=== PATIENT | female | born 1950 | race Caucasian/White ===

== ENCOUNTER 2022-08-16 10:28 | Day surgery (SDC) | payer MEDICARE, SELFPAY ==
[2022-08-16 11:22] VITALS: BP 172/76; PULSE 68; RESP 16; TEMP 36.8; O2SAT 98
[2022-08-16 12:02] VITALS: RESP 20
[2022-08-16 12:04] VITALS: BP 177/76; PULSE 77; O2SAT 96
[2022-08-16] MEDS: ONABOTULINUMTOXINA 200 UNIT VIAL INJ (12:09)
[2022-08-16] MEDS: 0.9 % SODIUM CHLORIDE 10 ML SYRINGE - SALINE FLUSH 4 ML INJ (12:10)
[2022-08-16] MEDS: BUPIVACAINE HCL 0.25% PF 25 MG/10 ML VIAL INJ (12:11)
[2022-08-16 12:12] VITALS: BP 157/69; PULSE 74; O2SAT 97
--- NOTE | 2022-08-18 16:22 | CONS_ITS ---
PROCEDURE DATE: ??08/16/2022 PROCEDURE:? Botulinum toxin infiltration of the right erector spinae muscle at the T11 and T12 levels under fluoroscopic guidance. PREOPERATIVE DIAGNOSIS:? Pain secondary to thoracolumbar kyphoscoliosis complicated by myofascial dysfunction ? Diagnosis code G24.9 ? involving the erector spinae muscle. POSTOPERATIVE DIAGNOSIS:? Pain secondary to thoracolumbar kyphoscoliosis complicated by myofascial dysfunction ? Diagnosis code G24.9 ? involving the erector spinae muscle. SOLUTION USED FOR INJECTION:? Botulinum toxin type A, 200 units in 5 mL and 2.5 mL used for the injection at each site. IMMEDIATE COMPLICATIONS:? None. PROCEDURE:? After informed consent was obtained from the patient, she was brought to the OR, placed in the prone position.? The skin overlying the area was prepped with the normal sterile fashion.? A 25 gauge spinal needle was inserted over the pedicle at T11 on the right side.? Needle tip advanced until it was encountered.? Needle tip was withdrawn slightly and injection of 100 units of botulinum toxin in 2.5 mL was injected at this area.? This was repeated in a similar fashion at the T12 level.? Post procedure, needle was removed.? Tolerated the procedure well without complications.? She reports a dramatic reduction of pain symptoms post procedurally. EMMANUEL
== END 2022-08-16 12:21 | disposition home or self-care (01) ==
LOC: SURGOUT 10:29
PROVIDERS: PCP Internal Medicine; Visit Provider Anesthesiology Pain Medicine
DX: G24.9 Dystonia, unspecified (principal); M41.85 Other forms of scoliosis, thoracolumbar region
CPT/HCPCS: 64646; 77002; J0585

== ENCOUNTER 2022-11-02 10:25 | Outpatient (OUT) | payer MEDICARE, SELFPAY ==
--- NOTE | 2022-11-02 10:38 | PM.CN ---
Consult Note: HPI Data of Consult Patient: known to practice within the last 3 years Requesting Physician: MARTINEZ GOTTLIEB NP Primary Care Provider: Kar Mota DO Consult Narrative Reason for consult: f/u Narrative: Courtney dougherty pleasant 71 year old female presents for evaluation of chronic low back pain, today 0/10. Patient feels current medication regimen is beneficial, most days pain mild to none with proper posture and rest. Patient not currently taking prn tylenol as she previously was. cc:: CC: MARTINEZ GOTTLIEB NP Review of Systems ROS Status of ROS 10 or more systems reviewed and unremarkable except as noted in history and below PFSH PFS Medical History Surgical History Meds Home Medications and Allergies Home Medications Medication Instructions Recorded Confirmed Type acetaminophen 325 mg tablet (Aphen) 325 mg PO Q6H PRN pain 08/09/22 08/16/22 History agzspjz-T7-wyu-O1-N20-epnijjtoqoij tab PO .QD 08/09/22 History 500 mg-200 unit-50 mg-1.2 mg tablet nabumetone 750 mg tablet 750 mg PO BID 08/09/22 08/16/22 History vitamins A,C,V-vryf-gdkzbd 2,148 2 tab PO BID 08/09/22 08/16/22 History mcg-113 mg-45 mg-17.4 mg tablet (Eye Multivitamin) zoledronic acid 5 mg/100 mL in ea IV .YEARLY 08/09/22 History mannitol 5 %-water intravenous piggybck (Reclast) baclofen 08/16/22 History gabapentin 08/16/22 History Allergies Allergy/AdvReac Type Severity Reaction Status Date / Time amoxicillin Allergy Verified 08/09/22 14:51 nitrofurantoin Allergy Verified 08/09/22 14:51 [From Macrobid] Sulfa (Sulfonamide Allergy Verified 08/09/22 14:51 Antibiotics) Exam Constitutional Documenting provider has reviewed patient's vital signs: yes Common normals: no apparent distress, oriented x3, healthy appearing, alert and well nourished General appearance: cooperative HENMT Common normals: normocephalic, hearing grossly normal bilaterally and moist oral mucous membranes Head and scalp: normocephalic Eye Common normals: PERRL Pupil: PERRL Neck & C-Spine Common normals: full ROM General: normal visual inspection Chest Common normals: inspection of chest normal Respiratory Common normals: normal respiratory effort, no retractions and no use of accessory muscles Back & Pelvis Common normals: no thoracic nor lumbar tenderness Thoracic spine/upper back: thoracic ROM normal Lumbar spine/lower back: lumbar ROM normal Other: scoliosis noted on physical exam Extremity Common normals: normal to inspection, full ROM, normal capillary refill and no joint enlargement Neuro Common normals: oriented x3, CN's II-XII intact bilaterally, moves all extremities, no focal motor deficits, no sensory deficits noted and deep tendon reflexes 2+ bilaterally Sensorium/orientation: alert Gait (neuro): assistive device used cane Motor exam: strength 5/5 throughout and no movement abnormalities noted Psych Common normals: mental status grossly normal, thought process normal, cooperative, affect normal, speech normal and activity/motor behavior normal Speech: normal speech Thought process: normal thought process Results Additional Findings Additional findings: I have checked an [place] report on this patient today and there are no aberrancies noted in the prescribing history.?? A drug screen was completed and reviewed within the last year, and if there has not been a drug screen completed we ordered one today to monitor higher risk, state monitored pain medication use. As part of providing excellent, safe, comprehensive care, the following was completed at our patient's visit: 1. A medication reconciliation and review to ensure accurate knowledge of current/active medications, including asking our patients to inform us about any tyvp-amx-qbghgzr medications or herbal remedies/nutritional supplements/alternative remedies. 2. A review to specifically ensure our patients have had annual screening for: elevated body mass index (BMI), tobacco use, screening for depression, and screening for unhealthy alcohol use. When screening is concerning, patients are provided with education and the specific recommendation to discuss the concerning health issue and treatment options with their primary care provider. Assessment and Plan Assessment and Plan (1) Lumbar spondylosis: (2) Scoliosis: (3) Muscle spasm: Plan continue current medication regimen, if needed can take PRN acetaminophen not to exceed 3000mg start PT for core strengthening, balance, and strength f/u 3 months, if patient notices pain increasing f/u sooner
== END 2022-11-02 10:26 | disposition home or self-care (01) ==
PROVIDERS: PCP Internal Medicine; Visit Provider Nurse Practitioner
DX: M47.816 Spondylosis without myelopathy or radiculopathy, lumbar region (principal); M62.838 Other muscle spasm; M41.9 Scoliosis, unspecified
CPT/HCPCS: G0463

== ENCOUNTER 2022-11-28 09:48 | Outpatient (OUT) | payer MEDICARE, SELFPAY ==
[2022-11-28 10:22] LABS: Basophils Percent Auto 0.9 % (0.2-2.0); Eosinophils Absolute Auto 0.1 10^3/uL (0.0-0.7); Eosinophils Percent Auto 1.8 % (0.9-7.0); Hematocrit 33.3 % (36.0-48.0); Immature Granulocytes Abs Auto 0.01 10^3/uL (0.00-0.03); Immature Granulocytes Pct Auto 0.2 % (0.0-0.5); Lymphocytes Absolute Auto 1.5 10^3/uL (1.2-3.8); Lymphocytes Percent Auto 33.3 % (20.5-60.0); Mean Corpuscular Hemoglobin 31.2 pg (26.7-34.0); Mean Corpuscular Volume 94.3 fL (81.0-99.0); Mean Platelet Volume 8.6 fL (9.5-13.5); Monocytes Absolute Auto 0.5 10^3/uL (0.3-0.8); Neutrophils Absolute Auto 2.3 10^3/uL (1.4-6.5); Neutrophils Percent Auto 52.8 % (43.0-75.0); Platelet Count 229 10^3/uL (150-450); Red Blood Count 3.53 10^6/uL (4.20-5.40); Red Cell Distribution Width 13.6 % (11.0-15.0); White Blood Count 4.4 10^3/uL (4.0-11.0)
[2022-11-28 11:14] LABS: Anion Gap 10.4; BUN Creatinine Ratio 17.4; Calcium 9.2 mg/dL (8.5-10.1); Carbon Dioxide 30.7 mmol/L (21.0-32.0); Chloride 103 mmol/L (98-107); Estimated GFR (African America 59 (>=60); Estimated GFR (Non-African Ame 49 (>=60); Glucose 84 mg/dL (74-106); Potassium 4.1 mmol/L (3.5-5.1); Sodium 140 mmol/L (136-145)
== END 2022-11-28 09:49 | disposition home or self-care (01) ==
PROVIDERS: PCP Internal Medicine; Visit Provider Internal Medicine
DX: Z79.899 Other long term (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 (principal); Z51.81 Encounter for therapeutic drug level monitoring; M85.851 Other specified disorders of bone density and structure, right thigh; M85.852 Other specified disorders of bone density and structure, left thigh; E55.9 Vitamin D deficiency, unspecified
CPT/HCPCS: 36415; 80048; 82306; 85025

== ENCOUNTER 2022-12-05 09:54 | Outpatient (RCR) | payer MEDICARE, SELFPAY | END 2022-12-30 15:06 | disposition home or self-care (01) | LOC: PT 09:54 | PROVIDERS: PCP Internal Medicine; Visit Provider Nurse Practitioner | DX: M47.816 Spondylosis without myelopathy or radiculopathy, lumbar region (principal); M41.9 Scoliosis, unspecified | CPT/HCPCS: 97010; 97110; 97161 ==

== ENCOUNTER 2022-12-19 07:33 | Outpatient (RCR) | payer MEDICARE, SELFPAY ==
[2022-12-19] MEDS: ZOLEDRONIC ACID/MANNITOL-WATER 5 MG/100 ML BOTTLE 400 MG IV (11:08)
[2022-12-19 11:32] VITALS: BP 164/82; PULSE 82; RESP 18; TEMP 36.2; O2SAT 97
--- NOTE | 2022-12-19 11:34 | PC.NURSE ---
1055: Pt. to [facility] amb. per self. Seated in recliner. VSS. IV started to right ac on first attempt without difficulty. Pt. tolerated without c/o. Denies questions regarding meds. Instructed to increase fluid intake today and tylenol for aches or discomfort. Pt. relays understanding. 1108: IV Reclast initiated as ordered. 1126: Reclast infusion complete without s&S of adverse reaction. IV d/c'd, pressure to site. Pt. tolerated without c/o. D/c'd amb. to home.
== END 2022-12-27 23:59 | disposition home or self-care (01) ==
LOC: INF 07:33
PROVIDERS: PCP Internal Medicine; Visit Provider Internal Medicine
DX: M81.0 Age-related osteoporosis without current pathological fracture (principal)
CPT/HCPCS: 96365; J3489

== ENCOUNTER 2023-02-09 13:02 | Outpatient (OUT) | payer MEDICARE, SELFPAY ==
--- NOTE | 2023-02-09 13:35 | P.CN_ITS ---
Consult Note: HPI Data of Consult Patient: known to practice within the last 3 years Requesting Physician: Hiwot Irving NP Primary Care Provider: Kar Mota DO Consult Narrative Reason for consult: f/u Narrative: Courtney dougherty pleasant 71 year old female presents for evaluation of chronic low back pain, today 0/10. Patient feels current medication regimen is beneficial, most days pain mild to none with proper posture and rest. Patient not currently taking prn tylenol as she previously was. cc:: CC: Hiwot Irving NP Review of Systems ROS Status of ROS 10 or more systems reviewed and unremark able except as noted in history and below Musculoskeletal Reports: back pain PFSH PFSH Medical History Rheumatoid arthritis ?M06.9 - Rheumatoid arthritis, unspecified (ICD-10) Low back pain ?M54.50 - Low back pain, unspecified (ICD-10) Family history of psychiatric condition ?Z81.8 - Family history of other mental and behavioral disorders (ICD-10) Former smoker ?Z87.891 - Personal history of nicotine dependence (ICD-10) Surgical History History of dilatation and curettage ?Z98.890 - Other specified postprocedural states (ICD-10) Meds Home Medications and Allergies Home Medications Medication Instructions Recorded Confirmed Type acetaminophen 325 mg tablet (Aphen) 325 mg PO Q6H PRN pain 08/09/22 08/16/22 History exauoki-T0-rxv-B7-T97-rjrsxqojctol tab PO .QD 08/09/22 History 500 mg-200 unit-50 mg-1.2 mg tablet nabumetone 750 mg tablet 750 mg PO BID 08/09/22 08/16/22 History vitamins A,C,S-tqse-vxgxqx 2,148 2 tab PO BID 08/09/22 08/16/22 History mcg-113 mg-45 mg-17.4 mg tablet (Eye Multivitamin) zoledronic acid 5 mg/100 mL in ea IV .YEARLY 08/09/22 History mannitol 5 %-water intravenous piggybck (Reclast) baclofen 08/16/22 History gabapentin 08/16/22 History baclofen 10 mg tablet 10 mg PO DAILY #30 tabs 11/02/22 Rx Allergies Allergy/AdvReac Type Severity Reaction Status Date / Time amoxicillin Allergy Verified 08/09/22 14:51 nitrofurantoin Allergy Verified 08/09/22 14:51 [From Macrobid] Sulfa (Sulfonamide Allergy Verified 08/09/22 14:51 Antibiotics) Exam Constitutional Documenting provider has reviewed patient's vital signs: yes Common normals: no apparent distress, oriented x3, healthy appearing, alert and well nourished General appearance: cooperative HENMT Common normals: normocephalic, hearing grossly normal bilaterally and moist oral mucous membranes Head and scalp: normocephalic Eye Common normals: PERRL Pupil: PERRL Neck & C-Spine Common normals: full ROM General: normal visual inspection Chest Common normals: inspection of chest normal Respiratory Common normals: normal respiratory effort, no retractions and no use of accessory muscles Back & Pelvis Common normals: no thoracic nor lumbar tenderness Thoracic spine/upper back: thoracic ROM normal Lumbar spine/lower back: lumbar ROM normal Other: scoliosis noted on physical exam Extremity Common normals: normal to inspection, full ROM, normal capillary refill and no joint enlargement Neuro Common normals: oriented x3, CN's II-XII intact bilaterally, moves all extremities, no focal motor deficits, no sensory deficits noted and deep tendon reflexes 2+ bilaterally Sensorium/orientation: alert Gait (neuro): assistive device used cane Motor exam: strength 5/5 throughout and no movement abnormalities noted Psych Common normals: mental status grossly normal, thought process normal, co operative, affect normal, speech normal and activity/motor behavior normal Speech: normal speech Thought process: normal thought process Assessment and Plan Assessment and Plan (1) Myofascial pain: (2) Scoliosis: (3) Lumbar spondylosis: Plan continue HEP continue current medications, tolerating well without side effect f/u 6 months, sooner if needed
== END 2023-02-09 13:03 | disposition home or self-care (01) ==
LOC: PM 13:03
PROVIDERS: PCP Internal Medicine; Visit Provider Nurse Practitioner
DX: M79.18 Myalgia, other site (principal); M41.9 Scoliosis, unspecified; M47.816 Spondylosis without myelopathy or radiculopathy, lumbar region
CPT/HCPCS: G0463

== ENCOUNTER 2023-05-24 13:21 | Outpatient (OUT) | payer MEDICARE, SELFPAY ==
--- NOTE | 2023-05-24 13:29 | P.CN_ITS ---
Consult Note: HPI Data of Consult Patient: known to practice within the last 3 years Requesting Physician: Hiwot Irving NP Primary Care Provider: aKr Mota, DO Consult Narrative Reason for consult: f/u Narrative: Courtney dougherty pleasant 71 year old female presents for evaluation of chronic low back pain, today 04/08, increasing to 08/06. Patient feels current medication regimen is beneficial, most days pain mild to moderate, improved with proper posture and rest but has noticed increase in muscle spasms. Patient reports significant improvement from Botulinum toxin infiltration of the right erector spinae muscle at the T11 and T12 levels under fluoroscopic guidance greater than 6 months and would like to repeat. cc:: CC: Hiwot Irving NP Review of Systems ROS Status of ROS 10 or more systems reviewed and unremark able except as noted in history and below Musculoskeletal Reports: back pain PFSH PFSH Medical History Rheumatoid arthritis ?M06.9 - Rheumatoid arthritis, unspecified (ICD-10) Low back pain ?M54.50 - Low back pain, unspecified (ICD-10) Family history of psychiatric condition ?Z81.8 - Family history of other mental and behavioral disorders (ICD-10) Former smoker ?Z87.891 - Personal history of nicotine dependence (ICD-10) Surgical History History of dilatation and curettage ?Z98.890 - Other specified postprocedural states (ICD-10) Meds Home Medications and Allergies Home Medications ?Medication ?Instructions ?Recorded ?Confirmed ?Type acetaminophen 325 mg tablet (Aphen) 325 mg PO Q6H PRN pain 08/09/22 08/16/22 History fsgjoyd-I3-unj-T4-X32-komvyoubfgce tab PO .QD 08/09/22 History 500 mg-200 unit-50 mg-1.2 mg tablet nabumetone 750 mg tablet 750 mg PO BID 08/09/22 08/16/22 History vitamins A,C,B-ofzl-zvipih 2,148 2 tab PO BID 08/09/22 08/16/22 History mcg-113 mg-45 mg-17.4 mg tablet (Eye Multivitamin) zoledronic acid 5 mg/100 mL in ea IV .YEARLY 08/09/22 History mannitol 5 %-water intravenous piggybck (Reclast) baclofen 08/16/22 History gabapentin 08/16/22 History baclofen 10 mg tablet 10 mg PO DAILY #30 tabs 11/02/22 Rx Allergies Allergy/AdvReac Type Severity Reaction Status Date / Time amoxicillin Allergy Verified 08/09/22 14:51 nitrofurantoin Allergy Verified 08/09/22 14:51 [From Macrobid] Sulfa (Sulfonamide Allergy Verified 08/09/22 14:51 Antibiotics) Exam Constitutional Documenting provider has reviewed patient's vital signs: yes Common normals: no apparent distress, oriented x3, healthy appearing, alert and well nourished General appearance: cooperative HENMT Common normals: normocephalic, hearing grossly normal bilaterally and moist oral mucous membranes Head and scalp: normocephalic Eye Common normals: PERRL Pupil: PERRL Neck & C-Spine Common normals: full ROM General: normal visual inspection Chest Common normals: inspection of chest normal Respiratory Common normals: normal respiratory effort, no retractions and no use of accessory muscles Back & Pelvis Common normals: no thoracic nor lumbar tenderness Thoracic spine/upper back: thoracic ROM normal Lumbar spine/lower back: lumbar ROM normal, lumbar spinal tenderness, paraspinal muscle tenderness, paraspinal muscle spasm, lumbar scoliosis present and straight leg raise negative bilaterally Other: scoliosis noted on physical exam Extremity Common normals: normal to inspection, full ROM, normal capillary refill and no joint enlargement Neuro Common normals: oriented x3, CN's II-XII intact bilaterally, moves all extremities, no focal motor deficits, no sensory deficits noted and deep tendon reflexes 2+ bilaterally Sensorium/orientation: alert Gait (neuro): assistive device used cane Motor exam: strength 5/5 throughout and no movement abnormalities noted Psych Common normals: mental status grossly normal, thought process normal, cooperative, affect normal, speech normal and activity/motor behavior normal Speech: normal speech Thought process: normal thought process Results Additional Findings Additional findings: If on a controlled substance or opioids, I have checked an [place] report on this patient and there are no aberrancies noted in the prescribing history.??If on a controlled substance or opioid a drug screen was completed and reviewed within the last year, and if there has not been a drug screen completed we ordered one today to monitor higher risk, state monitored pain medication use. As part of providing excellent, safe, comprehensive care, the following was completed at our patient's visit: 1. A medication reconciliation and review to ensure accurate knowledge of current/active medications, including asking our patients to inform us about any vyiv-zdq-lrhmfha medications or herbal remedies/nutritional supplements/alternative remedies. 2. A review to specifically ensure our patients have had annual screening for screening for depression, screening for tobacco use, and screening for unhealthy alcohol use. For concerning screenings had a discussion with the patient, provided patient education, and recommended follow-up with primary care provider when appropriate. If patient noted with a risk of falling, they received education on strength, gait, and balance training to prevent future risk of falling. Assessment and Plan Assessment and Plan (1) Dystonia, unspecified: (2) Lumbar spondylosis: (3) Myofascial pain: (4) Scoliosis: Plan repeat Botulinum toxin infiltration of the right erector spinae muscle at the T11 and T12 levels under fluoroscopic guidance with Dr Escobar, patient reports previously benefitted greater than 50% for >6 months and would like to repeat. Consider right L3-4 L4-5 facet medial branch blocks working towards RFA continue current medication regimen as tolerated f/u after injection
== END 2023-05-24 13:22 | disposition home or self-care (01) ==
LOC: PM 13:21
PROVIDERS: PCP Internal Medicine; Visit Provider Nurse Practitioner
DX: G24.9 Dystonia, unspecified (principal); M47.816 Spondylosis without myelopathy or radiculopathy, lumbar region; M79.18 Myalgia, other site; M41.9 Scoliosis, unspecified
CPT/HCPCS: G0463

== ENCOUNTER 2023-05-30 08:04 | Day surgery (SDC) | payer MEDICARE, SELFPAY ==
--- OUTSIDE RECORDS SUMMARY | 2023-05-30 08:07 | XMS_ITS | CCD ---
Author Organization [facility] Care Team Providers Care Resident Manager Name Role Phone Unavailable Primary Care Provider Unavailabl e BONUS, ANCELMO Attending Unavailable BONUS, ANCELMO Referring Unavailable BONUS, ANCELMO Referring Unavailable WELLINGTON HONG Attending Unavailable Unavailable Primary Care Provider Unavailalcides MARCIAL, DR MANJULA Hart Primary Care Unavailable HARRIS ., DR DUC Smith Attending Unavailable HARRIS ., DR DUC Smith Admitting Unavailable HARRIS ., DR DUC Smith Consulting Unavailable MARCIAL, DR MANJULA Hart Primary Care Unavailable HARRIS ., DR DUC Smith Consulting Unavailable HARRIS ., DR DUC Smith Attending Unavailable HARRIS ., DR DUC Smith Admitting Unavailable MARCIAL, DR MANJULA Hart Primary Care Unavailable HARRIS ., DR DUC Smith Consulting Unavailable HARRIS ., DR DUC Smith Attending Unavailable HARRIS ., DR DUC Smith Admitting Unavailable MARCIAL, DR MANJULA Hart Primary Care Unavailable CHERY ., MARTINEZ Attending Unavailable CHERY ., MARTINEZ Admitting Unavailable MARCIAL, DR MANJULA Hart Primary Care Unavailable HARRIS ., DR DUC Smith Consulting Unavailable HARRIS ., DR DUC Smith Attending Unavailable HARRIS ., DR DUC Smith Admitting Unavailable HARRIS ., DR DUC Smith Consulting Unavailable HARRIS ., DR DUC Smith Attending Unavailable HARRIS ., DR DUC Smith Admitting Unavailable MARCIAL, DR MANJULA Hart Primary Care Unavailable NAKUL, DR BURNETT Admitting Unavailable BALL, DR BURNETT Primary Care Unavailable BALL, DR BURNETT Consulting Unavailable BALL, DR BURNETT Attending Unavailable BALL, DR BURNETT Primary Care Unavailable ILDEFONSO, DR JEFF Choi Consulting Unavailable MISC, DR GALLEGOS Admitting Unavailable MISC, DR GALLEGOS Attending Unavailable MISC, DR GALLEGOS Consulting Unavailable MATTEBSTEVE, DR MARTA Tyler Consulting Unavailable BALL, DR BURNETT Admitting Unavailable BALL, DR BURNETT Primary Care Unavailable BALL, DR BURNETT Consulting Unavailable NAKUL, DR BURNETT Attending Unavailable MARCIAL, DR MANJULA Hart Primary Care Unavailable BALL, DR BURNETT Consulting Unavailable BALL, DR BURNETT Attending Unavailable BALL, DR BURNETT Admitting Unavailable WEST, DR JEFF Choi Consulting Unavailable JADA, DR MARTA Tyler Consulting Unavailable HARRIS ., DR DUC Smith Attending Unavailable KIMBERLY ., DR DUC Smith Admitting Unavailable AGGIE, DR MANJULA Hart Primary Care Unavailable DR MANJULA MARCIAL Consulting Unavailable KIMBERLY ., DR DUC Smith Consulting Unavailable Kar Mota Unavailable Allergies Allergy Classification Reported Allergen(s) Allergy Type Date of Onset Reaction(s) Facility (4 sources) Amoxicillin; Translations: [AMOXICILLIN] Drug Allergy 2 Anaphylaxis [facility] (14 sources) NITROFURANTOIN, MACROCRYSTALS / Nitrofurantoin, Monohydrate; Translations: [NITROFURANTOIN MONOHYD/M-CRYST] Drug Allergy 2 Anaphylaxis [facility] (14 sources) Sulfonamides (Antibiotic); Translations: [SULFA (SULFONAMIDE ANTIBIOTICS)] Drug Allergy 2 Anaphylaxis [facility] (1 source) Amoxicillin Drug Allergy 1 [facility] (2 sources) Nitrofurantoin Drug Allergy 3 [facility] (2 sources) Sulfonamides (Antibiotic) Drug allergy (disorder) 3 [facility] (10 sources) Amoxicillin-Pot Clavulanate Drug allergy 6 Unknown [employer] Other Medications Current Medications Medication Drug Class(es) Dates Sig (Normalized) Sig (Original) azithromycin 250 mg oral tablet (2 sources) Macrolide Antimicrobial Start: 03-27-2023 Azithromycin 250 MG as directed Orally daily for 5 days Feb, Active baclofen 10 mg oral tablet (13 sources) gamma-Aminobutyric Acid-ergic Agonist Start: 08-21-2018 Baclofen 10 MG BACLOFEN 10 MG ORAL TABLET( ) Active -Hx Entry Oral BACLOFEN 10 MG ORAL TABLET, Jul, Active Comment on above: Take 10 mg by mouth daily at bedtime. docusate sodium 50 mg / sennosides, halfway 8.6 mg oral tablet (3 sources) Start: 12-26-2022 take 8.6-50 mg by mouth once daily in the evening as needed Senokot S 8.6-50 MG 1 tablet as needed Orally q evening for 30 days Nov, Active gabapentin 100 mg oral capsule (20 sources) Anti-epileptic Agent Start: 01-14-2022 take 1 capsule by mouth twice daily as needed Gabapentin 100mg gabapentin 100mg, 2 (two) Capsule Capsule two times daily # 120, 01/14/2022, Ref. x5. Active oral two times daily for 0 Replaces previous prescription w/ intructions for tid *Pick strength-form from [employer] for eRX* Dec, Not-Taking/PRN Start: 09-27-2021 take 2 capsules by m outh every twelve hours Gabapentin 100 MG 2 capsules Orally bid for 30 days Aug, Active Comment on above: Take 200 mg by mouth twice daily. Completed/Discontinued Medications Medication Drug Class(es) Dates Sig (Normalized) Sig (Original) nabumetone 750 mg oral tablet (13 sources) Nonsteroidal Anti-inflammatory Drug Start: 10-13-2021 nabumetone (RELAFEN) 750 mg tablet omeprazole 40 mg delayed release oral capsule (3 sources) Proton Pump Inhibitor Start: 08-27-2021 take 1 capsule by mouth twice daily omeprazole (PRILOSEC) 40 mg capsule TAKE 1 CAPSULE BY MOUTH 2 TIMES DAILY FOR 12 WEEKS 0 08/27/2021 Active Comment on above: TAKE 1 CAPSULE BY MO UT 2 TIMES DAILY FOR 12 WEEKS vit A/vit C/vit E/zinc/copper (PRESERVISION AREDS ORAL) (3 sources) vit A/vit C/vit E/zinc/copper (PRESERVISION AREDS ORAL) Take by mouth. 0 Active Comment on above: Take by mouth. 100 ml zoledronic acid 0.05 mg/ml injection (3 sources) Bisphosphonate zoledronic acid (RECLAST) 5 mg/100 mL pgbk PREMIX piggyback Inject 5 mg intravenously every year. 0 Active Comment on above: Inject 5 mg intraven ously every year. Problems Active Problems Problem Classification Problem Date Documented Da te Episodic/Chronic Abdominal hernia (7 sources) Diaphragmatic hernia; Translations: [Diaphragmatic hernia without obstruction or gangrene] Episodic Abdominal pain (14 sources) Left lower quadrant pain; Translations: [Left lower quadrant pain] Onset: 10-05-2016 Episodic Acute bronchitis (1 source) Acute bronchitis due to other specified organisms Episodic Anxiety disorders (7 sources) Generalized anxiety disorder; Translations: [Generalized anxiety disorder] Chronic Conditions associated with dizziness or vertigo (14 sources) Benign paroxysmal positional vertigo; Translations: [Benign paroxysmal vertigo, unspecified ear] Onset: 08-14-2013 Episodic Deficiency and other anemia (7 sources) Anemia; Translations: [Anemia, unspecified] Episodic Gastroduodenal ulcer (except hemorrhage) (7 sources) Gastric ulcer; Translations: [Gastric ulcer, unspecified as acute or chronic, without hemorrhage or perforation] Onset: 10-06-2021 Chronic Headache; including migraine (1 source) Headache; including migraine; Translations: [Headache, unspecified] Onset: 04-03-2015 Immunizations and screening for infectious disease (7 sources) Vaccination given; Translations: [Encounter for immunization] Episodic Malaise and fatigue (8 sources) Other fatigue; Translations: [Fatigue] Onset: 03-10-2022 Episodic Menopausal disorders (7 sources) Menopause present; Translations: [Menopausal and female climacteric states] Chronic Nonmalignant breast conditions (7 sources) Fibrocystic disease of breast; Translations: [Diffuse cystic mastopathy of unspecified breast] Chronic Nutritional deficiencies (15 sources) Vitamin D deficiency, unspecified; Translations: [Vitamin D deficiency] Onset: 10-28-2021 Chronic Osteoarthritis (7 sources) Osteoarthritis; Translations: [Polyosteoarthritis, unspecified] Chronic Osteoporosis (17 sources) Age-related osteoporosis without current pathological fracture; Translations: [Primary osteoporosis] Onset: 11-11-2021 Chronic Other acquired deformities (1 source) Scoliosis deformity of spine; Translations: [Scoliosis, unspecified] Chronic Other acquired deformities (6 sources) Scoliosis, unspecified; Translations: [Scoliosis of thoracolumbar spine, unspecified scoliosis type] Onset: 10-15-2021 Chronic Other acquired deformities (1 source) Other forms of scoliosis, lumbar region; Translations: [OTHER FORMS SCOLIOSIS LUMBAR REGION] Onset: 12-03-2021 Chronic Other acquired deformities (20 sources) Acquired scoliosis; Translations: [Other secondary scoliosis, thoracic region] Chronic Other acquired deformities (3 sources) Other secondary scoliosis, lumbar region Chronic Other acquired deformities (3 sources) Other secondary scoliosis, thoracic region Chronic Other acquired deformities (3 sources) Acquired kyphoscoliosis; Translations: [Scoliosis, unspecified] Chronic Other acquired deformities (2 sources) Thoracogenic scoliosis, thoracolumbar region; Translations: [Thoracogenic scoliosis of thoracolumbar region] Chronic Other aftercare (2 sources) 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; Translations: [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 DRUG THERAPY] Onset: 10-29-2021 Episodic Other aftercare (6 sources) Long-term current use of drug therapy; Translations: [Other longterm (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] Episodic Other bone disease and musculoskeletal deformities (7 sources) Bone density finding; Translations: [Other specified disorders of bone density and structure, unspecified site] Episodic Other connective tissue disease (4 sources) Muscle wasting and atrophy, not elsewhere classified, unspecified site; Translations: [MUSCLE WASTING ATROPHY NEC UNS SITE] Onset: 05-02-2022 Episodic Other gastrointestinal disorders (9 sources) Irritable bowel syndrome characterized by constipation; Translations: [Irritable bowel syndrome with constipation] Chronic Other gastrointestinal disorders (4 sources) Irritable bowel syndrome with constipation; Translations: [Irritable bowel syndrome with constipation] Chronic Other gastrointestinal disorders (6 sources) Flatulence, eructation and gas pain; Translations: [Abdominal distension (gaseous)] Episodic Other gastrointestinal disorders (1 source) Abdominal distension (gaseous); Translations: [Abdominal distension (gaseous)] Episodic Other gastrointestinal disorders (1 source) Diarrhea, unspecified Episodic Other hereditary and degenerative nervous system conditions (1 source) Genetic torsion dystonia; 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] Onset: 01-24-2022 Chronic Other hereditary and degenerative nervous system conditions (1 source) Dystonia, unspecified; Translations: [DYSTONIA UNSPECIFIED] Onset: 12-26-2021 Chronic Other injuries and conditions due to external causes (7 sources) History of fall; Translations: [History of falling] Episodic Other nervous system disorders (3 sources) Chronic pain; Translations: [Other chronic pain] Chronic Other nervous system disorders (7 sources) Paresthesia; Translations: [Paresthesia of skin] Episodic Other nutritional; endocrine; and metabolic disorders (6 sources) Abnormal weight loss; Translations: [Abnormal weight loss] Episodic Other nutritional; endocrine; and metabolic disorders (1 source) Abnormal weight loss; Translations: [Abnormal weight loss] Episodic Other upper respiratory disease (7 sources) Vasomotor rhinitis; Translations: [Vasomotor rhinitis] Chronic Other upper respiratory infections (7 sources) Chronic sinusitis; Translations: [Chronic sinusitis, unspecified] Chronic Residual codes; unclassified (9 sources) Early satiety; Translations: [Early satiety] Episodic Residual codes; unclassified (7 sources) Postmenopausal state; Translations: [Asymptomatic menopausal state] Episodic Residual codes; unclassified (1 source) Early satiety; Translations: [Early satiety] Episodic Spondylosis; intervertebral disc disorders; other back problems (20 sources) Other cervical disc degeneration, unspecified cervical region; Translations: [Lumbosacral spondylosis without myelopathy] Onset: 01-24-2022 Chronic Spondylosis; intervertebral disc disorders; other back problems (18 sources) Sciatica; Translations: [Lumbago with sciatica, left side] Resolved: 07-07-2021 Episodic Substance-related disorders (10 sources) Tobacco user; Translations: [Nicotine dependence, cigarettes, in remission] Chronic Unclassified (3 sources) LOW BACK PAIN, UNSPECIFIED; Translations: [LOW BACK PAIN, UNSPECIFIED] Onset: 01-24-2022 Unclassified (1 source) Unspecified tinnitus; Translations: [Unspecified tinnitus] Onset: 05-01-2017 Past or Other Problems Problem Classification Problem Date Documented Date Episodic/Chronic Genitourinary symptoms and ill-defined conditions (14 sources) Finding of frequency of urination; Translations: [Frequency of micturition] Onset: 08-03-2015 Episodic Headache; including migraine (6 sources) Headache; Translations: [Headache, unspecified] Onset: 04-03-2015 Episodic Noninfectious gastroenteritis (7 sources) Non-infective enteritis and colitis; Translations: [Noninfective gastroenteritis and colitis, unspecified] Onset: 05-13-2013 Episodic Nonspecific chest pain (7 sources) Chest pain; Translations: [Chest pain, unspecified] Onset: 08-14-2013 Episodic Other bone disease and musculoskeletal deformities (1 source) Other specified disorders of bone density and structure, other site; Translations: [OTH D/O BONE DEN STRUCT OTH SITE] Onset: 03-10-2022 Episodic Other bone disease and musculoskeletal deformities (1 source) Other specified disorders of bone density and structure, left thigh; Translations: [OTH D/O BONE DEN STRUCT LT THIGH] Onset: 10-29-2021 Episodic Other bone disease and musculoskeletal deformities (1 source) Other specified disorders of bone density and structure, right thigh; Translations: [OTH D/O BONE DEN STRUCT RT THIGH] Onset: 10-29-2021 Episodic Other connective tissue disease (5 sources) Sarcopenia; Translations: [SARCOPENIA] Onset: 11-30-2021 Episodic Other connective tissue disease (1 source) Pain in left leg; Translations: [PAIN IN LEFT LEG] Onset: 12-26-2021 Episodic Other connective tissue disease (1 source) Disorder of muscle, unspecified; Translations: [DISORDER OF MUSCLE UNSPECIFIED] Onset: 12-03-2021 Episodic Other connective tissue disease (4 sources) Other muscle spasm; Translations: [OTHER MUSCLE SPASM] Onset: 11-23-2021 Episodic Other ear and sense organ disorders (6 sources) Tinnitus; Translations: [Unspecified tinnitus] Onset: 05-01-2017 Episodic Other screening for suspected conditions (not mental disorders or infectious disease) (14 sources) Patient encounter status; Translations: [Encounter for screening for osteoporosis] Onset: 10-20-2014 Episodic Other upper respiratory infections (20 sources) Acute maxillary sinusitis; Translations: [Acute recurrent maxillary sinusitis] Onset: 04-03-2015 Episodic Residual codes; unclassified (1 source) Family history of malignant neoplasm of breast; Translations: [FAMILY HX MALIG NEOPLASM OF BREAST] Onset: 03-10-2022 Episodic Residual codes; unclassified (1 source) Asymptomatic menopausal state; Translations: [ASYMPTOMATIC MENOPAUSAL STATE] Onset: 03-10-2022 Episodic Sprains and strains (7 sources) Strain of muscle and tendon of back wall of thorax, subsequent encounter; Translations: [Strain of muscle and tendon of back wall of thorax, subsequent encounter] Onset: 07-27-2018 Episodic Unclassified (1 source) LOW BACK PAIN, UNSPECIFIED; Translations: [LOW BACK PAIN, UNSPECIFIED] Onset: 01-18-2022 Unclassified (1 source) Acute cough R05.1 Results Test Name Value Interpretation Reference Range Facil ity CBC AUTO DIFFon 03-08-2022 BASO # 0.0 103/ul Normal 0.0-0.1 [facility] Comment on above: Performed By: #### C BC ####[facility] [address] [place], [place] [address]PlAryan Madison Basophils/100 WBC (Bld) 0.7 % Normal 0.2-2.0 [facility] Comment on above: Performed By: #### C BC ####[facility] [address] [place] [address]Dr. Tanner Madison EO # 0.1 103/ul Normal 0.0-0.7 [facility] Comment on above: Performed By: #### C BC ####[facility] [address] [place], [place] [address]Dr. Tanner Madison Eosinophils/100 WBC (Bld) 1.5 % Normal 0.9-7.0 [facility] Comment on above: Performed By: #### C BC ####[facility] [address] [place], [place] [address]Dr. Tanner Madison Erythrocyte distribution width (RBC) [Ratio] 13.2 % Normal 11.0-15.0 [facility] Comment on above: Performed By: #### C BC ####[facility] [address] [place], [place] [address]Dr. Tanner Madison Hematocrit (Bld) [Volume fraction] 34.1 % Critically low 36.0-48.0 [facility] Comment on above: Performed By: #### C BC ####[facility] [address] [place], [place] [address]Dr. Tanner Madison Hemoglobin (Bld) [Mass/Vol] 11.7 g/dL Critically low 12.0-16.0 [facility] Comment on above: Performed By: #### C BC ####[facility] [address] [place], [place] [address]Dr. Tanner Los IG # 0.02 10e3/ul Normal 0.00-0.03 [facility] Comment on above: Performed By: #### C BC ####[facility] [address] [place], [place] [address]Dr. Tanner Madison IG % 0.4 % Normal 0.0-0.5 [facility] Comment on above: Performed By: #### C BC ####[facility] [address] [place], [place] [address]Dr. Virginiasunita Madison LYMPH # 1.2 103/ul Normal 1.2-3.8 [facility] Comment on above: Performed By: #### C BC ####[facility] [address] [place] [address]Dr. Tanner Los Lymphocytes/100 WBC (Bld) 25.6 % Normal 20.5-60.0 [facility] Comment on above: Performed By: #### C BC ####[facility] [address] [place] [address]Dr. Virginiasunita Madison MANUAL DIFF REQ NO Normal [facility] Comment on above: Performed By: #### C BC ####[facility] [address] [place] [address]Dr. Tanner Los MCH (RBC) [Entitic mass] 30.9 pg Normal 26.7-34.0 [facility] Comment on above: Performed By: #### C BC ####[facility] [address] [place], [place] [address]Dr. Virginiasunita Madison MCHC (RBC) [Mass/Vol] 34.3 g/dL Normal 29.9-35.2 [facility] Comment on above: Performed By: #### C BC ####[facility] [address] [place], [place] [address]Dr. Tanner Madison MCV (RBC) [Entitic vol] 90.0 fL Normal 81.0-99.0 [facility] Comment on above: Performed By: #### C BC ####[facility] [address] [place], [place] [address]Dr. Tanner Madison MONO # 0.4 103/ul Normal 0.3-0.8 [facility] Comment on above: Performed By: #### C BC ####[facility] [address] [place], [place] [address]Dr. Tanner Madison Monocytes/100 WBC (Bld) 7.6 % Normal 1.7-12.0 [facility] Comment on above: Performed By: #### C BC ####[facility] [address] [place], [place] [address]Dr. Tanner Madison NEUT # 3.0 103/ul Normal 1.4-6.5 [facility] Comment on above: Performed By: #### C BC ####[facility] [address] [place] [id number]. Tanner Madison Neutrophils/100 WBC (Bld) 64.2 % Normal 43.0-75.0 [facility] Comment on above: Performed By: #### C BC ####[facility] [address] [place] [id number]. Tanner Madison Platelet mean volume (Bld) [Entitic vol] 8.5 fL Critically low 9.5-13.5 [facility] Comment on above: Performed By: #### C BC ####[facility] [address] [place] [id number]. Tanner Madison PLT 269 103/ul Normal 150-450 [facility] Comment on above: Performed By: #### C BC ####[facility] [address] [place] [id number]. Tanner Madison RBC 3.79 106/ul Critically low 4.20-5.40 [facility] Comment on above: Performed By: #### C BC ####[facility] [address] [place] [id number]. Tanner Madison WBC 4.6 103/ul Normal 4.0-11.0 [facility] Comment on above: Performed By: #### C BC ####[facility] [address] [place] [id number]. Tanner Madison MG MAMM SCREEN 3D VIJAYA CADon 03-08-2022 MG MAMM SCREEN 3D VIJAYA CAD Patient: COURTNEY WHITE Exam Date: 03/08/2022 : 1950 Gender:F Ordering : DR KAR MOTA D.O. Admission #: [id number] Family : Order #: [id number] CLICK HERE TO VIEW EXAM RADIOLOGY REPORT PROCEDURE: MAMMOGRAM SCREENING 3D BILATERAL CAD COMPARISON: MG MAMM SCREEN 3D VIJAYA CAD, 12/07/2020. INDICATIONS: Screening mammography Calculator Name NCI Breast Cancer Risk Assessment Tool 5 Year Breast Cancer Risk 2.30% Lifetime Breast Cancer Risk 5.70% Personal Breast Cancer No Personal Ovarian Cancer No Treatments None Family Cancers Aunt-paternal with breast cancer at age 50. LOCATION: [facility] BREAST COMPOSITION: Extremely dense, which lowers the sensitivity of mammography. FINDINGS: DIAGNOSTIC CATEGORY 2--BENIGN FINDING. NO CHANGE FROM COMPARISON. Scattered benign-appearing nodules are present. Scattered benign-appearing calcifications are present. Scattered benign-appearing lymph nodes are present. RIGHT BREAST: No significant suspicious finding. LEFT BREAST: No significant suspicious finding. RECOMMENDATIONS: ROUTINE MAMMOGRAM AND CLINICAL EVALUATION IN 12 MONTHS. PLEASE NOTE: A NORMAL MAMMOGRAM DOES NOT EXCLUDE THE POSSIBILITY OF BREAST CANCER. A CLINICALLY SUSPICIOUS PALPABLE LUMP SHOULD BE BIOPSIED. Dictated by: Jeff Fregoso MD on 03/08/2022 at 12:16 Approved by: Jeff Fregoso MD on 03/08/2022 at 12:18 Normal [facility] PROF CHEM 8 (BAS METB)on Anion gap [Moles/Vol] 11.0 mmol/L Normal [facility] Comment on above: Performed By: #### T SH, BMP #### [facility] [address] [place] [address] Dr. Tanner Madison Calcium [Mass/Vol] 9.5 mg/dL Normal 8.5-10.1 [facility] Comment on above: Performed By: #### T SH, BMP #### [facility] [address] [place] [address] Dr. Tanner Madison Chloride [Moles/Vol] 103 mmol/L Normal 98-107 [facility] Comment on above: Performed By: #### T SH, BMP #### [facility] [address] [place] [address] Dr. Tanner Madison CO2 [Moles/Vol] 30.1 mmol/L Normal 21.0-32.0 [facility] Comment on above: Performed By: #### T SH, BMP #### [facility] [address] [place] [address] Dr. Tanner Madison Creatinine [Mass/Vol] 0.98 mg/dL Normal 0.55-1.02 [facility] Comment on above: Performed By: #### T SH, BMP #### [facility] [address] [place] [address] Dr. Tanner Madison EGFR-AF SAMOAN >60 Normal >=60 [facility] Comment on above: Performed By: #### T SH, BMP #### [facility] [address] [place] [address] [address] Tanner Madison EGFR-NON AF SAMOAN 56 mL/min/1.73m2 Critically low >=60 [facility] Comment on above: Performed By: #### T SH, BMP #### [facility] [address] [place] [address] [address] Tanner Madison Glucose [Mass/Vol] 91 mg/dL Normal 74-106 [facility] Comment on above: Performed By: #### T SH, BMP #### [facility] [address] [place] [address] [address] Tanner Madison Potassium [Moles/Vol] 4.1 mmol/L Normal 3.5-5.1 [facility] Comment on above: Performed By: #### T SH, BMP #### [facility] [address] [place] [address] Dr. Tanner Madison Sodium [Moles/Vol] 140 mmol/L Normal 136-145 [facility] Comment on above: Performed By: #### T SH, BMP #### [facility] [address] [place] [address] Dr. Tanner Madison Urea nitrogen [Mass/Vol] 14.0 mg/dL Normal 7.0-18.0 [facility] Comment on above: Performed By: #### T SH, BMP #### [facility] [address] [place] [address] Dr. Tanner Madison Urea nitrogen/Creatinin e [Mass ratio] 14.3 mg/mg Normal [facility] Comment on above: Performed By: #### T SH, BMP #### [facility] [address] [place] [address] Dr. Tanner Madison TSHon 03-08-2022 TSH 2.659 uIU/mL Normal 0.358-3.740 [facility] Comment on above: Performed By: #### T SH, BMP #### [facility] [address] [place] [address] Dr. Tanner Madison VITAMIN D 25 OHon 03-08-2022 VIT D 25-OH 63.4 ng/mL Normal [facility] Comment on above: Performed By: #### V ITAD ####[facility] [address] [place], [place] [address]Oo. Tanner Madison VIT D RANGES SEE BELOW Normal [facility] Comment on above: Result Comment: <20 ng/mL Vit D deficient 20 - <30 ng/mL Vit D insufficient 30 - 100 ng/mL Vit D sufficient >100 ng/mL Potential Toxicity Performed By: #### V ITAD ####[facility] [address] [place], [place] [address]Dh. Tanner Madison XR DEXA BONE DENSITYon 03-08 XR DEXA BONE DENSITY EXAMINATION: XR DEXA BONE DENSITY, 03/08/2022 9:42 AM EST HISTORY: Menopause present COMPARISON: DEXA bone densitometry 02/25/2020 TECHNIQUE: Dual-energy X-ray absorptiometry (DEXA) bone density study performed for the axial skeleton. FINDINGS: SPINE ANALYSIS: Average bone mineral density is 1.129 g/cm2. T-score (standard deviation relative to young adult mean): -0.4 . -6.1% change since prior study. HIP ANALYSIS: Lowest bone mineral density is within the left femoral neck, 0.821 g/cm2. T-score (standard deviation relative to young adult mean): -1.6 . +1.2% change since prior study. IMPRESSION: World [place] Organization Classification: Osteopenia - Moderate Fracture Risk Electronically authenticated by: MARTA ELIAS Date: 2022-03-08 10:52 Normal [facility] Asa 11-16-2021 SAEED Telephone (MIKE) COURTNEY WHITE ([id number]) 1950 F Date Time Provider Department 11/16/21 ANCELMO SANDOVAL During your visit today, we recorded the following information about you: Cesilia Adler 11/16/2021 1:47 PM Signed Received the following record(s) via fax. -MRI tspine wo(report) Date 11/03/21 Record(s) scanned into pt's chart. Cesilia Nayely Roblero requested Allergies As of Date: 11/16/2021 Noted Allergy Reaction AMOXICILLIN 10/15/2021 10 - Anaphylaxis MACROBID (NITROFURANTOIN MONOHYD/*10/15/2021 10 - Anaphylaxis SULFA (SULFONAMIDE ANTIBIOTICS) 10/15/2021 10 - Anaphylaxis Date Reviewed: 10/15/2021 Reviewed by: Tano Michele LPN - Fully Assessed Reason for Visit: Results [95] Prescriptions as of 11/23/2021 - gabapentin (NEURONTIN) 100 mg capsule Take 200 mg by mouth twice daily. - nabumetone (RELAFEN) 750 mg tablet - omeprazole (PRILOSEC) 40 mg capsule TAKE 1 CAPSULE BY MOUTH 2 TIMES DAILY FOR 12 WEEKS - zoledronic acid (RECLAST) 5 mg/100 mL pgbk PREMIX piggyback Inject 5 mg intravenously every year. - vit A/vit C/vit E/zinc/copper (PRESERVISION AREDS ORAL) Take by mouth. - baclofen (LIORESAL) 10 mg tablet Take 10 mg by mouth daily at bedtime. Problem List As Of Date: 11/16/2021 (None) Encounter Status:Closed by RAYSA RICO on 11/23/21 Normal [facility] MRI LSPINE WO CONon 11-05-19 MRI [place] EXAMINATION: MRI [place] CON HISTORY: Scoliosis deformity of spine COMPARISON: MRI lumbar spine 09/05/2019 TECHNIQUE: A variety of imaging planes and parameters were utilized for visualization of suspected pathology. FINDINGS: For the purposes of numbering, sagittal T2 image # 13 extends from the T11 vertebral body superiorly to the S3-4 level inferiorly. PARASPINAL AREA: Normal with no visible mass. BONES: S-shaped scoliotic curvature of lumbar spine. CORD/CAUDA EQUINA: Normal caliber, contour, and signal intensity. DISC LEVELS: 12-L1: No significant disc/facet abnormality, spinal stenosis, or foraminal stenosis. L1-L2: Early degenerative disc disease is present without focal protrusion or neural impingement. L2-L3: Moderate central canal and bilateral foramen narrowing. Mild diffuse disc bulging and bilateral facet arthropathy. Disc at reduction. L3-L4: Moderate right foramen narrowing. Mild central canal and left foramen narrowing. Mild diffuse disc bulging and mild disc height reduction on right side. Facet arthropathy. L4-L5: Moderate-marked right foramen narrowing. Mild central canal and left foramen narrowing. Mild diffuse disc bulging and moderate disc height reduction. Moderate degenerative facet arthropathy and ligamentum flavum thickening, right greater than left. L5-S1: Mild central canal and bilateral foramen narrowing. Mild diffuse disc bulging without significant disc height reduction. Moderate degenerative facet arthropathy. IMPRESSION: 1. Scoliotic curvature lumbar spine with multilevel moderate central canal and foramen narrowing, greatest at L4-5, slightly progressed. Electronically authenticated by: MARTA ELIAS Date: 2021-11-04 06:33 Normal [facility] MRI TSPINE WO CONon 11-04-[address] [facility] WO CON EXAMINATION: MRI [facility] WO CON HISTORY: Scoliosis deformity of spine COMPARISON: No relevant comparison available. TECHNIQUE: Axial T2; Sagittal T1, T2, and Stir sequences. Images were performed without contrast. FINDINGS: CORD: Normal caliber, contour, and signal intensity. BONES: Mild rotatory dextrocurvature. No acute fracture or spondylolisthesis. No bone edema. DISCS: No significant disc/facet abnormality, spinal stenosis, or foraminal stenosis. PARASPINAL AREA: No visible mass. OTHER: Negative. IMPRESSION: Mild rotatory dextrocurvature No significant disc bulge or herniation. No central canal or neural foraminal stenosis Electronically authenticated by: JEFF FREGOSO Date: 2021-11-03 19:07 Normal [facility] VIT D 25-OH LABCORPon 2021 Vitamin D, 25-Hydroxy 69.8 ng/mL Normal 30.0-100.0 [facility] Comment on above: Result Comment: Negar min D deficiency has been defined by the [place] of Medicine and an Endocrine Society practice guideline as a level of serum 25-OH vitamin D less than 20 ng/mL (1,2). The Endocrine Society went on to further define vitamin D insufficiency as a level between 21 and 29 ng/mL (2). 1. IOM ([place] of Medicine). 2010. Dietary reference intakes for calcium and D. [place]: The National Academies Press. 2. Mikal MF, Jayy LEMOS, Zi MACHADO, et al. Evaluation, treatment, and prevention of vitamin D deficiency: an Endocrine Society clinical practice guideline. JCEM. 2010; 96(7):1911-30. Performed By: #### V ITADLC #### [facility] [address] [address] [address] Tanner Madison CBC AUTO DIFFon 10-28-2021 BASO # 0.0 103/ul Normal 0.0-0.1 [facility] Comment on above: Performed By: #### C BC #### [facility] [address] [address] [address] Tanner Madison Basophils/100 WBC (Bld) 0.6 % Normal 0.2-2.0 [facility] Comment on above: Performed By: #### C BC #### [facility] [address] [place] [address] Dr. Tanner Madison EO # 0.1 103/ul Normal 0.0-0.7 [facility] Comment on above: Performed By: #### C BC #### [facility] [address] [address] [address] Tanner Madison Eosinophils/100 WBC (Bld) 1.1 % Normal 0.9-7.0 [facility] Comment on above: Performed By: #### C BC #### [facility] [address] [place] [address] Dr. Tanner Madison Erythrocyte distribution width (RBC) [Ratio] 13.5 % Normal 11.0-15.0 [facility] Comment on above: Performed By: #### C BC #### [facility] [address] [place] [address] Dr. Tanner Madison Hematocrit (Bld) [Volume fraction] 31.7 % Critically low 36.0-48.0 [facility] Comment on above: Performed By: #### C BC #### [facility] [address] [place] [address] Dr. Tanner Madison Hemoglobin (Bld) [Mass/Vol] 10.8 g/dL Critically low 12.0-16.0 [facility] Comment on above: Performed By: #### C BC #### [facility] [address] [place] [address] Dr. Tanner Madison IG # 0.01 10e3/ul Normal 0.00-0.03 [facility] Comment on above: Performed By: #### C BC #### [facility] [address] [place] [address] Dr. Tanner Madison IG % 0.2 % Normal 0.0-0.5 [facility] Comment on above: Performed By: #### C BC #### [facility] [address] [place] [address] Dr. Tanner Madison LYMPH # 1.3 103/ul Normal 1.2-3.8 [facility] Comment on above: Performed By: #### C BC #### [facility] [address] [place] [address] Dr. Tanner Madison Lymphocytes/100 WBC (Bld) 24.0 % Normal 20.5-60.0 [facility] Comment on above: Performed By: #### C BC #### [facility] [address] [place] [address] Dr. Tanner Madison MANUAL DIFF REQ NO Normal [facility] Comment on above: Performed By: #### C BC #### [facility] [address] [place] [address] Dr. Tanner Madison MCH (RBC) [Entitic mass] 31.0 pg Normal 26.7-34.0 [facility] Comment on above: Performed By: #### C BC #### [facility] [address] [place] [address] Dr. Tanner Madison MCHC (RBC) [Mass/Vol] 34.1 g/dL Normal 29.9-35.2 [facility] Comment on above: Performed By: #### C BC #### [facility] [address] [place] [address] Dr. Tanner Madison MCV (RBC) [Entitic vol] 91.1 fL Normal 81.0-99.0 [facility] Comment on above: Performed By: #### C BC #### [facility] [address] [address] [address] Tanner Maidson MONO # 0.5 103/ul Normal 0.3-0.8 [facility] Comment on above: Performed By: #### C BC #### [facility] [address] [address] [address] Tanner Madison Monocytes/100 WBC (Bld) 8.3 % Normal 1.7-12.0 [facility] Comment on above: Performed By: #### C BC #### [facility] [address] [place] [address] Dr. Tanner Madison NEUT # 3.6 103/ul Normal 1.4-6.5 [facility] Comment on above: Performed By: #### C BC #### [facility] [address] [place] [address] Dr. Tanner Madison Neutrophils/100 WBC (Bld) 65.8 % Normal 43.0-75.0 [facility] Comment on above: Performed By: #### C BC #### [facility] [address] [place] [address] Dr. Tanner Madison Platelet mean volume (Bld) [Entitic vol] 8.6 fL Critically low 9.5-13.5 [facility] Comment on above: Performed By: #### C BC #### [facility] [address] [place] [address] Dr. Tanner Madison PLT 234 103/ul Normal 150-450 [facility] Comment on above: Performed By: #### C BC #### [facility] [address] [place] [address] Dr. Tanner Madison RBC 3.48 106/ul Critically low 4.20-5.40 [facility] Comment on above: Performed By: #### C BC #### [facility] [address] [place] [address] Dr. Tanner Madison WBC 5.4 103/ul Normal 4.0-11.0 [facility] Comment on above: Performed By: #### C BC #### [facility] [address] [place], [place] [id number] Dr. Tanner Madison PROF CHEM 8 (BAS METB)on Anion gap [Moles/Vol] 12.7 mmol/L Normal [facility] Comment on above: Performed By: #### B MP ####[facility] [address] [address]Dr. Tanner Madison Calcium [Mass/Vol] 9.2 mg/dL Normal 8.5-10.1 [facility] Comment on above: Performed By: #### B MP ####[facility] [address] [address]Dr. Tanner Madison Chloride [Moles/Vol] 102 mmol/L Normal 98-107 [facility] Comment on above: Performed By: #### B MP ####[facility] [address] [address]Dr. Tanner Madison CO2 [Moles/Vol] 30.4 mmol/L Normal 21.0-32.0 [facility] Comment on above: Performed By: #### B MP ####[facility] [address] [address]Dr. Tanner Madison Creatinine [Mass/Vol] 1.07 mg/dL Critically high 0.55-1.02 [facility] Comment on above: Performed By: #### B MP ####[facility] [address] [address]Dr. Tanner Madison EGFR-AF SAMOAN >60 Normal >=60 [facility] Comment on above: Performed By: #### B MP ####[facility] [address] [address]Dr. Tanner Madison EGFR-NON AF SAMOAN 50 mL/min/1.73m2 Critically low >=60 [facility] Comment on above: Performed By: #### B MP ####[facility] [address] [address]Dr. Tanner Madison Glucose [Mass/Vol] 99 mg/dL Normal 74-106 [facility] Comment on above: Performed By: #### B MP ####[facility] [address] [address]Dr. Tanner Madison Potassium [Moles/Vol] 4.1 mmol/L Normal 3.5-5.1 [facility] Comment on above: Performed By: #### B MP ####[facility] [address] [address]Dr. Tanner Madison Sodium [Moles/Vol] 141 mmol/L Normal 136-145 [facility] Comment on above: Performed By: #### B MP ####[facility] [address] [address]Dr. Tanner Madison Urea nitrogen [Mass/Vol] 16.0 mg/dL Normal 7.0-18.0 [facility] Comment on above: Performed By: #### B MP ####[facility] [address] [address]Dr. Tanner Madison Urea nitrogen/Creatinin e [Mass ratio] 15.0 mg/mg Normal [facility] Comment on above: Performed By: #### B MP ####[facility] [address] [id number]. Tanner Madison CNOVon 10-15-2021 CNOV Office Visit (SPNMMN ) COURTNEY WHITE ([id number]) 1950 F Date Time Provider Department 10/15/21 2:00 PM ANCELMO SANDOVAL [facility] During your visit today, we recorded the following information about you: Pulse Respiration Blood pressure Weight 80/minute 14/minute 140/71 50 kg Height 1.6 m Ancelmo Sandoval PA-C 10/18/2021 8:52 AM Signed SPINE SURGERY OUTPATIENT CONSULT SERVICE DATE: 10/15/2021 PCP: No primary care provider on file. REFERRING PROVIDER: SELF Consult requested for an opinion regarding the evaluation and treatment of scoliosis. My final impression and recommendations will be communicated back to the requesting physician by way of the shared medical record or letter via US mail. SUBJECTIVE Courtney White is a 70 year old female presenting with spouse. CHIEF COMPLAINT: scoliosis HISTORY OF PRESENT ILLNESS PRECIPITATING EVENT: None DURATION OF SYMPTOMS: Greater Than 1 Year Presents today for consult regarding scoliosis. States she never was diagnosed with scoliosis but 2 years ago she started undergoing epidural injections for radicular pain in the legs and was told by pain management that she had a curvature in the spine. She states she had never noticed it but over the last two years she started to progressively develop a significant curve. Now having low back pain. Feels like she is tilted to the side . Pain in the legs has resolved since undergoing injections. Also undergoing workup for digestive concerns. Was told it may be related to her scoliosis. No numbness, weakness, imbalance, bowel or bladder changes. No hx of spine surgeries. Hx of osteoporosis and has been on medications for >10 years. No hx of compression fractures. There is no problem list on file for this patient. No past medical history on file. No past surgical history on file. No family history on file. Social History Tobacco Use Smoking status: Former Types: Cigarettes Smokeless tobacco: Never Substance Use Topics Alcohol use: Never ALLERGIES Allergen Reactions Amoxicillin Anaphylaxis Macrobid [Nitrofura* Anaphylaxis Sulfa (Sulfonamide * Anaphylaxis MEDICATIONS: gabapentin (NEURONTIN) 100 mg capsule Take 200 mg by mouth twice daily. nabumetone (RELAFEN) 750 mg tablet omeprazole (PRILOSEC) 40 mg capsule TAKE 1 CAPSULE BY MOUTH 2 TIMES DAILY FOR 12 WEEKS zoledronic acid (RECLAST) 5 mg/100 mL pgbk PREMIX piggyback Inject 5 mg intravenously every year. vit A/vit C/vit E/zinc/copper (PRESERVISION AREDS ORAL) Take by mouth. baclofen (LIORESAL) 10 mg tablet Take 10 mg by mouth daily at bedtime. REVIEW OF SYSTEMS: GENERAL: No weight loss or malaise MUSCULOSKELETAL: Negative for joint pain, swelling or muscle pain NEURO: No history of headaches, syncope, paralysis, seizures or tremors Patient Entered Questionnaires PROMIS Score Percentiles Percentiles provide an indication of how the patient's score ranks in relation to the general population. Higher percentile rankings indicate better function/quality of life. 50th percentile is the average of the general population and indicates half of respondents had a worse score. Depression Screening: PHQ-9 Self-Harm (Item 9) response options: 0 Not at all 1 Several days 2 More than half the days 3 Nearly every day PHQ-9 Levels: 0-4 No to mild depression 5-9 Mild depression 10-14 Moderate depression 15-19 Moderately severe depression 20-27 Severe depression OBJECTIVE: PHYSICAL EXAM BP 140/71 Pulse 80 Resp 14 Ht 160 cm (5' 3 ) Wt 50 kg (110 lb 4.8 oz) SpO2 97% BMI 19.54 kg/m? GENERAL APPEARANCE: Well nourished, well developed, and no apparent distress. NEURO PSYCH: Patient oriented to person, place, and time. Mood pleasant. Benign affect. MUSCULOSKELETAL VISUAL INSPECTION CERVICAL: WNL THORACIC: Kyphoscoliosis LUMBAR: Scoliosis PALPATION: SPINOUS PROCESS: No pain. PARASPINALS: No pain. MUSCLE BULK: Normal and symmetrical in the upper AND lower extremities. MUSCLE TONE: Normal. MOTOR: 5/5 in all muscle groups. SENSORY: Normal sensory exam GAIT: Antalgic. REFLEXES: +2 to bilateral U/L extremities. LONG TRACT SIGNS: No Hoffmans. STRAIGHT LEG TEST: Ipsilateral: Negative. Contralateral: Negative. NEURO TESTS: None DATA REVIEW No additional images reviewed today ASSESSMENT/PLAN (M41.9) Scoliosis of thoracolumbar spine, unspecified scoliosis type (primary encounter diagnosis) 2 year hx of severe deformity. No trauma or event that she remembers triggering it. Has worked with pain management for injections for previous leg pain which has now resolved. Only concern now is low back pain. On exam she has a severe kyphoscoliosis of the thoracic spine. Overall she's only slightly forward sagittally. Explained how atypical it is for such a severe deformity to develop in such a short period (more content not included)... Normal [facility] XR SCOLIOSIS 2V PA STAND/LAT on 10-15-2021 XR SCOLIOSIS 2V PA STAND/LAT * * *Final Report* * * DATE OF EXAM: Oct 15 2021 2:23PM PATRICE [id number] - XR SCOLIOSIS 2V PA STAND/LAT / PROCEDURE REASON: Scoliosis of thoracolumbar spine, unspecified scoliosis type * * * * Physician Interpretation * * * * EXAMINATION: XR SCOLIOSIS 2V PA STAND/LAT HISTORY: Scoliosis of thoracolumbar spine, unspecified scoliosis type . TECHNIQUE: XR SCOLIOSIS 2V PA STAND/LAT Laterality: Not applicable Number of different views (projections): 2 M: XB_1 COMPARISON: None RESULT: Thoracolumbar levoscoliosis centered at L4 measuring approximately 48 degrees between L1-L5. Multilevel degenerative changes of the lumbar spine. No compression fracture. Mild lateral translation of L2 on L3. No other significant abnormality. IMPRESSION: Thoracolumbar scoliosis and degenerative changes. Slubber Hand: PSCB Transcribe Date/Time: Oct 15 2021 2:52P Dictated by : CHETNA HERNANDEZ MD This examination was interpreted and the report reviewed and electronically signed by: CHETNA HERNANDEZ MD on Oct 15 2021 2:54PM EST [id number] Normal [facility] XR SCOLIOSIS PA STAND/LAT 2V on 10-15-2021 [facility] 08-27-2021 L - -------- Specimen: [id number] Received: 08/27/21 Status: VINOD Radha Num: [id number] Spec Type: Surgical Subm Dr: Will Ma MD Tissues: A Gastric Biopsy (GASTRIC BXS) Procedures: HE Stain/2, Gross/Micro L4 -------- Patient Age/Sex Location Account Attending Physician -------- Courtney White 70/F [id number] Will Ma MD -------- SPEC NUM: [id number] RECD: 08/27/21 STATUS: VINOD GARCIA NUM: [id number] JHONNY: 08/27/[address] [facility] [address]: Will Ma MD ENTERED: 08/27/21 [facility] DR: SON TYPE: Surgical DEPT: S ORDERED: HE Stain/2, Gross/Micro L4 ORDERED: HE Stain/2, Gross/Micro L4 Pathological Diagnosis Stomach, biopsy: - Mild chronic inactive gastritis - No morphologic evidence of H. pylori microorganisms Clinical Information Anemia Gross Description Received in 10% neutral buffered formalin, labeled with the patient's name, number and gastric biopsies rule out H. pylori by IHC malignancy are multiple ledesma tissue fragments aggregating 0.5 x 0.4 x 0.2 cm. Entirely submitted in one cassette labeled A1. (SM/YJ) Microscopic Description Two glass slides with H E stained material have been examined. The microscopic findings support the above pathologic diagnosis. [id number] -------- -------- Specimen: [id number] Received: 08/27/21 Status: VINOD Garcia Num: [id number] Spec Type: Surgical Subm Dr: Will Ma MD Tissues: A Gastric Biopsy (GASTRIC BXS) Procedures: HE Stain/2, Gross/Micro L4 -------- Patient: Courtney White [id number] (Continued) -------- Signed (signature on file) Nisreen Marquez MD 08/31/211 Normal [facility] SARS-CoV-2 (COVID-19) RNA JEFFRY+probe Ql (Unsp spec) Negative Normal Negative [facility] Comment on above: Order Comment: Healt hcare Worker?: N Result Comment: Testing for SARS-CoV-2 by RT-PCR This test was developed and its performance characteristics determined by [facility] ([facility]) and validated at the [facility]. This test has not been FDA cleared or approved. This test has been authorized by FDA under an Emergency Use Authorization (EUA). This test has been validated in accordance with the FDA's Guidance Document (Policy for Diagnostics Testing in Laboratories Certified to Perform High Complexity Testing under CLIA prior to Emergency Use Authorization for Coronavirus Disease-2019 during the Public Health Emergency) issued on May 30, 2019. This test is only authorized for the duration of time the declaration that circumstances exist justifying the authorization of the emergency use of in vitro diagnostic tests for detection of SARS-CoV-2 virus and/or diagnosis of COVID-19 infection under section 564(b)(1) of the Act, 21 U.S.C. 360bbb-3(b)(1), unless the authorization is terminated or revoked sooner. PERFORMED BY: [place] [address] PATHOLOGIST MANAGEMENT MANAGER NISREEN MARQUEZ M.D. Performed By: #### C OVID 19 [facility] #### [place] [id number] [facility] Vital Signs Date Time Vital Sign Value Performing Clinician Facility 09-26-2022 10:30-0400 Body height 160.02 cm [facility] Other [employer] [facility] Other 09-26-2022 10:30-0400 Body mass index (BMI) [Ratio] 19.31 kg/m2 [facility] Other [employer] [facility] Other 09-26-2022 10:30-0400 Body weight 49.44 kg [facility] Other [employer] [facility] Other 09-26-2022 10:30-0400 Diastolic blood pressure 75 mm[Hg] [facility] Other [employer] [facility] Other 09-26-2022 10:30-0400 Respiratory rate 12 /min [facility] Other [employer] [facility] Other 09-26-2022 10:30-0400 Systolic blood pressure 166 mm[Hg] [facility] [employer] Other [employer] [facility] Other 02-01-2022 10:22-0500 Body height 160 cm Wellington Hong MD Work Phone: [facility] 02-01-2022 10:22-0500 Body weight 49.9 kg Wellington Hong MD Work Phone: [facility] 02-01-2022 10:22-0500 Diastolic blood pressure 76 mm[Hg] Wellington Hong MD Work Phone: [facility] 02-01-2022 10:22-0500 Heart rate 71 /min Wellington Hong MD Work Phone: [facility] 02-01-2022 10:22-0500 Respiratory rate 14 /min Wellington Hong MD Work Phone: [facility] 02-01-2022 10:22-0500 SaO2% (BldA) [Mass fraction] 98 % Wellington Hong MD Work Phone: [facility] 02-01-2022 10:22-0500 Systolic blood pressure 168 mm[Hg] Wellington Hong MD Work Phone: [facility] Encounters Encounter Date Encounter Type Care Provider Facility Start: 03-27-2023 End: 03-27-2023 ambulatory Kar Nakul Other [employer] Other Start: 03-27-2023 Office outpatient vi sit 15 minutes Kar CHAMORRO [facility] Start: 03-27-2023 Telephone encounter Kar NAILS G [facility] Start: 01-23-2023 End: 01-23-2023 ambulatory Kar Nakul Other [employer] Other Start: 01-23-2023 Telephone encounter Kar NAILS [facility] Start: 11-29-2022 End: 11-29-2022 ambulatory Kar Mota Other [employer] Other Start: 11-29-2022 Telephone encounter Kar NAILS G [facility] Start: 11-28-2022 End: 11-28-2022 ambulatory Kar Mota Other [employer] Other Start: 11-28-2022 Nursing evaluation o f patient and report Kar Mota [facility] Start: 11-28-2022 Telephone encounter Kar NAILS [facility] Start: 10-04-2022 End: 10-04-2022 ambulatory Kar Mota Other [employer] Other Start: 10-04-2022 Telephone encounter Kar Cervantes [facility] Start: 09-26-2022 End: 09-26-2022 ambulatory Kar Mota Other [employer] Other Start: 09-26-2022 Office outpatient vi sit 15 minutes Kar Mota [facility] Start: 07-14-[address] MANJULA MARCIAL Facil ity:[facility] Start: 05-02-2022 End: 05-03-[address] MANJULA MARCIAL Facility:[facility] Start: 03-08-2022 End: 03-09-[address] MANJULA MARCIAL Facility:[facility] Start: 03-02-2022 End: 03-03-[address] MANJULA MARCIAL Facility:[facility] Start: 02-15-2022 Adult health examination Chris Mota Other [employer] Other Start: 02-01-2022 End: 02-01-2022 ambulatory ANCELMO SANDOVAL Facility:[facility] Start: 02-01-2022 End: 02-01-2022 Patient encounter procedure Wellington Hong MD Work Phone: [facility] [place] Comment on above: Encounter for screen ing for osteoporosis (Primary Dx) Start: 01-18-2022 End: 01-19-[address] MANJULA MARCIAL Facility:[facility] Start: 12-21-2021 End: 12-22-[address] MANJULA MARCIAL Facility:[facility] Start: 11-30-2021 End: 12-01-[address] DUC HARRIS . Facility:[facility] Start: 11-23-2021 End: 11-24-[address] DUC HARRIS . Facility:[facility] Start: 11-16-2021 Telephone encounter Ancelmo crews PA-C Work Phone: Neurology Comment on above: Results Start: 11-11-2021 End: 11-11-[address] KAR MOAT Facility:[facility] Start: 11-03-2021 End: 11-04-[address] KAR MOTA Facility:[facility] Start: 10-28-2021 End: 10-29-[address] KAR MOTA Facility:[facility] Start: 10-15-2021 End: 10-15-2021 ambulatory ANCELMO SANDOVAL Facility:[facility] Start: 10-15-2021 End: 10-15-2021 Subsequent hospital visit by physician [facility] Comment on above: Scoliosis of thoraco lumbar spine, unspecified scoliosis type [M41.9] Procedures Date Procedure Procedure Detail Performing Clinician Start: 10-15-2021 Radex entir thrc lmb r crv sac spi w/skull 2/3 vw Ancelmo Sandoval PA-C Work Phone: Start: 07-07-2016 Screening for malign ant neoplasm of colon Kar Mota Other Depression screening Violetteami jaspal Mota Other Screening for malign ant neoplasm of breast Kar Mota Other Plan of Treatment Date Care Activity Detail Author Start: 02-27-2022 ADVANCE DIRECTIVE DISCUSSION ADVANCE DIRECTIVE DISCUSSION [facility] Start: 02-27-2022 DEPRESSION ASSESSMENT DEPRESSION ASS ESSMENT [facility] Start: 10-28-2021 Influenza vaccination INFLUENZA (#1) [facility] Start: 07-25-2021 COVID-19 VACCINE (5 - Booster for Pfizer series) COVID-19 VACCINE (5 - Booster for Pfizer series) [facility] Start: 02-27-2021 ADVANCE DIRECTIVE DISCUSSION ADVANCE DIRECTIVE DISCUSSION [facility] Start: 02-27-2021 DEPRESSION ASSESSMENT DEPRESSION ASS ESSMENT [facility] Start: 2013 BONE DENSITY BONE DENSITY [facility] Start: 2013 PNEUMOCOCCAL: 65+ (1 - PCV) PNEUMOCOCCAL: 65+ (1 - PCV) [facility] Start: 1998 SHINGRIX VACCINE (1 of 2) SHINGRIX VACCINE (1 of 2) [facility] Start: 1993 COLOGUARD (FIT-DNA) COLOGUARD (FIT-D NA) [facility] Start: 1993 Colonoscopy COLONOSCOPY [facility] Start: 1993 COLORECTAL CANCER SCREENING COLORECTAL CANCER SCREENING [facility] Start: [address] COLONOGRAPHY [facility] Start: 1993 DIABETES SCREEN DIABETES SCREEN [facility] Start: 1993 FECAL OCCULT BLOOD FECAL OCCULT BLOO D [facility] Start: 1993 LIPID SCREEN LIPID SCREEN [facility] Start: 1993 SIGMOIDOSCOPY SIGMOIDOSCOPY [facility] Start: 1988 Mammography MAMMOGRAM [facility] Start: 11-13-1967 Urine microalbumin profile DTAP,TDAP,TD (1 - Tdap) [facility] Start: 1966 HEPATITIS C SCREENING HEPATITIS C SC CIERA [facility] Start: 1960 Adult depression screening assessment DEPRESSION SCREENING [facility] End: 03-03-2023 DXA-AXIAL SKELETON DXA-AXIAL SKELETON Radiology Routine Encounter for screening for osteoporosis 1 Occurrences starting 02/01/2022 until 03/03/2023 [facility] Work Phone: Comment on above: 1 Occurrences starti ng 02/01/2022 until 03/03/2023 [employer] lamar Immunizations Immunization Date Immunization Notes Care Provider Cecy brown 11-28-2022 influenza, high dose seasonal, preservative-free Kar Mota Other [employer] Other 11-26-2021 influenza virus vaccine, split virus (incl. purified surface antigen) Kar Mota Other [employer] Other 05-30-2021 COVID-19 Vaccine Pfi zer - Documentation Purposes Only Kar Mota Other [employer] Other 12-04-2020 influenza virus vaccine, split virus (incl. purified surface antigen) Kar Mota Other [employer] Other 11-22-2020 COVID-19 Vaccine Pfi zer - Documentation Purposes Only Kar Mota Other [employer] Other 04-18-2020 COVID-19 Vaccine Pfi zer - Documentation Purposes Only Kar Mota Other [employer] Other 03-28-2020 COVID-19 Vaccine Moderna - Documentation Purposes Only Kar Mota Other [employer] Other 11-07-2019 influenza virus vaccine, split virus (incl. purified surface antigen) Kar Mota Other [employer] [facility] Other 11-26-2018 influenza virus vaccine, split virus (incl. purified surface antigen) Kar Mota Other [employer] Other 12-07-2017 influenza virus vaccine, split virus (incl. purified surface antigen) Kar Mota Other [employer] Other 12-19-2016 influenza virus vaccine, split virus (incl. purified surface antigen) Kar Mota Other [employer] Other 12-01-2015 influenza virus vaccine, split virus (incl. purified surface antigen) Kar Mota Other [employer] Other 05-15-2015 pneumococcal conjuga te vaccine, 13 valent Kar Mota Other [employer] [facility] Other 12-10-2014 influenza virus vaccine, split virus (incl. purified surface antigen) Kar Mota Other [employer] Other 12-18-2013 tetanus and diphther ia toxoids, adsorbed, preservative free, for adult use (5 Lf of tetanus toxoid and 2 Lf of diphtheria toxoid) Kar Mota Other [employer] Other 2013 pneumococcal polysaccharide vaccine, 23 valent Kar Mota Other [employer] Other 12-17-2012 tetanus and diphther ia toxoids, adsorbed, preservative free, for adult use (5 Lf of tetanus toxoid and 2 Lf of diphtheria toxoid) Kar Mota Other [employer] Other Payers Date Payer Category Payer Medicare HUMANA MEDICARE HU[employer]NA MEDICARE PPO [id number] 2017-Present [phone] [address] [address] [place] [address] PPO [id number] 1961 Medicare [id number] 1950 Unknown [id number] 1948 Unknown [id number] 1948 Unknown [id number] 1948 Unknown [id number] 1948 Unknown [id number] 1948 Unknown [id number] 1948 Unknown [id number] 1948 Unknown [id number] 1948 Unknown [id number] 1948 Unknown [id number] 1948 Unknown [id number] Social History Date Type Detail Facility Start: 10-15-2021 Tobacco smoking status NHIS Ex-smoker [facility] History of tobacco use Current smoker [facility] History of tobacco use Cigarette Smoker [facility] Start: 10-15-2021 Tobacco use and exposure Smokeless tobacco non-user [facility] Start: 10-15-2021 End: 02-01-2022 Alcohol intake Lifetime non-drinker (finding) [facility] Start: 1950 Sex Assigned At Not on file [facility] Start: 10-05-2021 End: 10-15-2021 Exposure to SARS-CoV-2 (event) Not sure [facility] Sex Assigned At Sex Assigned At Bir th [employer] Other Clinical Notes 10-15-2021 to 03-27-2023 Note Date & Type Note Facility 03-27-2023 Evaluation note Encounter Date Diagnosis Assessment Notes Feb, Acute bronchitis due to other specified organisms (ICD-10 - J20.8) Instructed to use Robitussin or Mucinex for cough, saline or Flonase NS for congestion, Tylenol for pain and fever. Feb, Acute cough (ICD-10 - R05.1) Mucinex DM, hydrate w/ minimum 48oz water. Cough and deep breathing exercises. Feb, Diarrhea of presumed infectious origin (ICD-10 - R19.7) Diet instructions Avoid milk, juices and tomato sauce. Increase banans, yogurt and cheese Call if increased frequency > 3/24 hours and watery [employer] Other 11-27-2023 Evaluation note* Encounter Date Diagnosis Assessment Notes Treatment Notes Treatment Clinical Notes Dec, Pain in thoracic spine (ICD-10 - M54.6) [employer] [facility] Other 10-02-2023 Evaluation note* Encounter Date Diagnosis Assessment Notes Treatment Notes Treatment Clinical Notes Nov, Lumbar spondylosis (ICD-10 - M47.816) [employer] Other 07-31-2023 Evaluation note* Encounter Date Diagnosis Assessment Notes Treatment Notes Treatment Clinical Notes Aug, Age-related osteoporosis without current pathological fracture (ICD-10 - M81.0) Continue Ca and Vit D supplements. 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 Ca and Vit D supplements. Continue anti resorptive therapy Aug, Other secondary scoliosis, thoracic region (ICD-10 - M41.54) Continue stretching exercises. Ca and Vit D supplements. Continue anti resorptive therapy Aug, Irritable bowel syndrome with constipation (ICD-10 - K58.1) Instructed on high protein diet. Decrease roughage. Continue fiber but may cause increased bloating. [facility] [employer] Other 07-31-2023 Evaluation note* Encounter Date Diagnosis Assessment Notes Treatment Notes Treatment Clinical Notes Aug, Age-related osteoporosis without current pathological fracture (ICD-10 - M81.0) Continue Ca and Vit D supplements. Aug, Lumbar spondylosis (ICD-10 - M47.816) Completed PT w/o benefit Referred for bracing w/o benefit Referred to Orthopedic and Neurosurgery w/ no recommended procedures recommended. Referred to pain management w/ some benefits Continue stretching exercises and keep active but avoid strenuous activity. 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 Ca and Vit D supplements. Continue anti resorptive therapy Aug, Other secondary scoliosis, thoracic region (ICD-10 - M41.54) Continue stretching exercises. Ca and Vit D supplements. Continue anti resorptive therapy Aug, Irritable bowel syndrome with constipation (ICD-10 - K58.1) Instructed on high protein diet. Decrease roughage. Continue fiber but may cause increased bloating. [facility] [employer] Other 12-06-2022 NoteHNO ID: [id number] Author: Wellington Hong MD Service: ? Author Type: Physician Type: Progress Notes Filed: 03/07/2022 5:40 AM Note Text: SPINE SURGERY NEW PATIENT PCP: No primary care provider on file. REFERRING PROVIDER: Ancelmo Sandoval PA-C SUBJECTIVE HISTORY OF PRESENT ILLNESS: Courtney White is a 71 year old female CHIEF COMPLAINT: low back pain Previously seen by Ancelmo Sandoval PA-C. PRECIPITATING EVENT: None DURATION OF SYMPTOMS: Greater Than 1 Year 2 year hx of progressive low back pain. Started without any incident or event. Describes feeling like she's now walking with a forward posture. Pain across the low back but intermittent pain into the mid back and neck as well. In the past she had radiating pain down the legs but this resolved with injections. Pain in the low back is worse with walking and activity. She is now using a cane because of the pain. Intermittent numbness in the legs when sitting. No bowel or bladder changes. No change in balance. Hx of osteoporosis, using Reclast. 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 No past medical history on file. No past surgical history on file. No family history on file. Social History Tobacco Use Smoking status: Former Types: Cigarettes Smokeless tobacco: Never Substance Use Topics Alcohol use: Never ALLERGIES Allergen Reactions Amoxicillin Anaphylaxis Macrobid [Nitrofura* Anaphylaxis Sulfa (Sulfonamide * Anaphylaxis MEDICATIONS: gabapentin (NEURONTIN) 100 mg capsule Take 200 mg by mouth twice daily. nabumetone (RELAFEN) 750 mg tablet omeprazole (PRILOSEC) 40 mg capsule TAKE 1 CAPSULE BY MOUTH 2 TIMES DAILY FOR 12 WEEKS zoledronic acid (RECLAST) 5 mg/100 mL pgbk PREMIX piggyback Inject 5 mg intravenously every year. vit A/vit C/vit E/zinc/copper (PRESERVISION AREDS ORAL) Take by mouth. baclofen (LIORESAL) 10 mg tablet Take 10 mg by mouth daily at bedtime. REVIEW OF SYSTEMS: GENERAL: No weight loss or malaise MUSCULOSKELETAL: See HPI NEURO: No history of headaches, syncope, paralysis, seizures or tremors Patient Entered Questionnaires PROMIS Score Percentiles Percentiles provide an indication of how the patient's score ranks in relation to the general population. Higher percentile rankings indicate better function/quality of life. 50th percentile is the average of the general population and indicates half of respondents had a worse score. Depression Screening: PHQ-9 Self-Harm (Item 9) response options: 0 Not at all 1 Several days 2 More than half the days 3 Nearly every day PHQ-9 Levels: 0-4 No to mild depression 5-9 Mild depression 10-14 Moderate depression 15-19 Moderately severe depression 20-27 Severe depression OBJECTIVE: PHYSICAL EXAM There were no vitals taken for this visit. GENERAL APPEARANCE: Well nourished, well developed, and no apparent distress. NEURO PSYCH: Patient oriented to person, place, and time. Mood pleasant. Benign affect. MUSCULOSKELETAL VISUAL INSPECTION CERVICAL: Kyphosis THORACIC: WNL LUMBAR: Scoliosis PALPATION: SPINOUS PROCESS: No pain. PARASPINALS: Pain. MUSCLE BULK: Normal and symmetrical in the upper AND lower extremities. MUSCLE TONE: Normal. MOTOR: 5/5 in all muscle groups. SENSORY: Normal sensory exam GAIT: Antalgic. REFLEXES: +2 to bilateral U/L extremities. LONG TRACT SIGNS: No Hoffmans. STRAIGHT LEG TEST: Ipsilateral: Negative. Contralateral: Negative. NEURO TESTS: None DATA REVIEW [facility] records independently reviewed ASSESSMENT/PLAN No diagnosis found. Staff note: I reviewed the information obtained and documented by the physician retail administrative assistant. I examined the patient and evaluated all available films and pertinent documents. We discussed the case and I agree with the plans as outlined in this note. As above, Courtney White is a 71 year old female with 2 year hx of progressive low back pain. Started without any incident or event. Describes feeling like she's now walking with a forward posture. Pain across the low back but intermittent pain into the mid back and neck as well. In the past she had radiating pain down the legs but this resolved with injections. Pain in the low back is worse with walking and activity. She is now using a cane because of the pain. Intermittent numbness in the legs when sitting. No partha (more content not included)...[facility]12-06-2022 Instructions* Patient Instructions* Ancelmo Sandoval PA-C - 02/01/2022 11:05 AM EST BONE MINERAL DENSITY PATIENT INSTRUCTIONS Bone mineral density testing measures the amount of calcium in certain parts of your bones. This information determines how strong your bones are. The test is used to detect osteoporosis, a disease in which the bone's mineral content and density are low, increasing a person's risk of fractures. Thelumbar spine (lower back) and the hip are the skeletal sites usually examined. For the test, remember that: 1. You cannot take this test if you are . 2. Eat a normal diet on the day of the test. 3. Take your medications as you normally would. 4. DO NOT take calcium supplements (such as Tums) for 24 hours before the test. 5. On the day of the test, leave valuables (jewelry or credit cards) at home. 6. The test should be performed prior to oral, rectal or IV contrast studies, or at least 7 days after any of these studies. For the test, you may be asked to wear a hospital gown. You will lie on your back, on a padded table, in a comfortable position. Generally, you can resume your usual activities immediately. [facility] History of Present illness Narrative* Wellington Hong MD - 02/01/2022 10:50 AM EST SPINE SURGERY NEW PATIENT PCP: No primary care provider on file. REFERRING PROVIDER: Ancelmo Sandoval PA-C SUBJECTIVE HISTORY OF PRESENT ILLNESS: Courtney White is a 71 year old female CHIEF COMPLAINT: low back pain Previously seen by Ancelmo Sandoval PA-C. PRECIPITATING EVENT: None DURATION OF SYMPTOMS: Greater Than 1 Year 2 year hx of progressive low back pain. Started without any incident or event. Describes feeling like she's now walking with a forward posture. Pain across the low back but intermittent pain into themid back and neck as well. In the past she had radiating pain down the legs but this resolved with injections. Pain in the low back is worse with walking and activity. She is now using a cane because of the pain. Intermittent numbness in the legs when sitting. No bowel or bladder changes. No change in balance. Hx of osteoporosis, using Reclast. 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 No past medical history on file. No past surgical history on file. No family history on file. Social History Tobacco Use Smoking status: Former Types: Cigarettes Smokeless tobacco: Never Substance Use Topics Alcohol use: Never ALLERGIES Allergen Reactions Amoxicillin Anaphylaxis Macrobid [Nitrofura* Anaphylaxis Sulfa (Sulfonamide * Anaphylaxis MEDICATIONS: gabapentin (NEURONTIN) 100 mg capsule Take 200 mg by mouth twice daily. nabumetone (RELAFEN) 750 mg tablet omeprazole (PRILOSEC) 40 mg capsule TAKE 1 CAPSULE BY MOUTH 2 TIMES DAILY FOR 12 WEEKS zoledronic acid (RECLAST) 5 mg/100 mL pgbk PREMIX piggyback Inject 5 mg intravenously every year. vit A/vit C/vit E/zinc/copper (PRESERVISION AREDS ORAL) Take by mouth. baclofen (LIORESAL) 10 mg tablet Take 10 mg by mouth daily at bedtime. REVIEW OF SYSTEMS: GENERAL: No weight loss or malaise MUSCULOSKELETAL: See HPI NEURO: No history of headaches, syncope, paralysis, seizures or tremors Patient Entered Questionnaires PROMIS Score Percentiles Percentiles provide an indication of how the patient's score ranks in relation to the general population. Higher percentile rankings indicate better function/quality of life. 50th percentile is the average of the general population and indicates half of respondents had a worse score. Depression Screening: PHQ-9 Self-Harm (Item 9) response options: 0 Not at all 1 Several days 2 More than half the days 3 Nearly every day PHQ-9 Levels: 0-4 No to mild depression 5-9 Mild depression 10-14 Moderate depression 15-19 Moderately severe depression 20-27 Severe depression OBJECTIVE: PHYSICAL EXAM There were no vitals taken for this visit. GENERAL APPEARANCE: Well nourished, well developed, and no apparent distress. NEURO PSYCH: Patient oriented to person, place, and time. Mood pleasant. Benign affect. MUSCULOSKELETAL VISUAL INSPECTION CERVICAL: Kyphosis THORACIC: WNL LUMBAR: Scoliosis PALPATION: SPINOUS PROCESS: No pain. PARASPINALS: Pain. MUSCLE BULK: Normal and symmetrical in the upper & lower extremities. MUSCLE TONE: Normal. MOTOR: 5/5 in all muscle groups. SENSORY: Normal sensory exam GAIT: Antalgic. REFLEXES: +2 to bilateral U/L extremities. LONG TRACT SIGNS: No Hoffmans. STRAIGHT LEG TEST: Ipsilateral: Negative. Contralateral: Negative. NEURO TESTS: None DATA REVIEW [facility] records independently reviewed ASSESSMENT/PLAN No diagnosis found. Staff note: I reviewed the information obtained and documented by the physician retail administrative assistant. I examined the patient and evaluated all available films and pertinent documents. We discussed the case and I agree withthe plans as outlined in this note. As above, Courtney White is a 71 year old female with 2 year hx of progressive low back pain. Started without any incident or event. Describes feeling like she's now walking with a forward posture. Pain across the low back but intermittent pain into the mid back and neck as well. In the past she had radiating pain down the legs but this resolved with injections. Pain in the low back is worse with walking and activity. She is now using a cane because of the pain. Intermittent numbness in the legs when sitting. No bowel or bladder changes. No change in balance. Hx of osteoporosis, using Reclast. Physical exam demonstrates as above. External imaging reviewed and discussed. At this time, after discussing the patient's symptoms and reviewing their imaging, I believe the patient is not a good candidate for surgical intervention. I explained the reasoning of not pursing surgery and discussed possibly pursuing conservative management with pain management and reviewed the rationale to attempt to address patient's mild low back pain which resolves with rest. I answered all the patient's questions in detail and addressed their concerns. We will pursue further medical investigation at this time. Plan: Conservative management with pain management Follow up in 6 months to assess pain and discuss possible surgery Scribe Attestation: By signing my name below, I, Melba Garcia, attest that this documentation has been prepared under the direction and in the presence of Wellington Hong MD. Electronically Signed:musa Orozco, January 31, 2022 9:13 PM I agree with the Chief Complaint, ROS, and Past Histories independently gathered by the clinical child support investigator and the remaining scribed note accurately describes my personal service to the patient. Wellington Hong MD [facility] NoteCONSULTATION CONSULTATION DATE: 01/18/2022 CHIEF COMPLAINT: Low back pain, right leg weakness. HISTORY OF PRESENT ILLNESS: This is a very pleasant, 71-year-old female who is known to the Pain [facility]. The patient is status post botulinum toxin injection for severe rotoscoliosis of her lumbar spine. The patient has a torsion dystonia. The patient feels she is overall better, is able to tolerating eating more; however, she still gets the satiety aspect. The patient has a dextro pull and a rotational component in her thoracolumbar spine. Sitting, at times, aggravates the pain, as does housework and bending. 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 The patient currently takes gabapentin 100 mg b.i.d., baclofen half a tablet q.h.s. The patient takes Reclast on a yearly basis. The patient has an appointment to see a [facility] in the near future. PHYSICAL EXAM: Upon physical examination, this is a pleasant, cooperative female, who does not appear to be in any acute distress. VITAL SIGNS: Stable at 149/73, with a heart rate of 71. At a height of 5'3 , the patient weighs 111 pounds. FOCUSED EVALUATION: The patient has significant kyphorotoscoliosis along the thoracolumbar spine. EXTREMITIES: Global atrophy is noted of the lower extremities bilaterally. MUSCULOSKELETAL: Muscle tonus is diminished. The patient is a very active individual. NEUROLOGICALLY: Slight neuritis/radiculitis is present. Hypoesthesia in the right leg along the L4-5 distribution. PSYCHIATRICALLY: Affect is appropriate. The patient is concerned with regards to her 's illness. 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 PLAN: We shall await the patient's evaluation with [facility]. Subsequent to that, we will make a determination on how to proceed. For her sarcopenia, the patient will receive testosterone cypionate 50 mg IM, which she has received in the past and finds it helpful. This will be performed on an every other month basis, as per the patient's request. In addition to this, for her lumbar radiculitis, we will schedule the patient for a lumbar epidural steroid injection. 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 PROCEDURE: Subsequent to obtaining informed consent, the patient was placed in the prone position. Alcohol prep was used to sterilize the site. A 25 gauge needle was advanced and botulinum toxin along the rotators and also the erector spinae muscle injected on to the right lumbar paravertebral erector spinae muscles. The sites were defined and multiple injections, a total of 10 separate injections are performed in 20 unit aliquots. Negative heme. The patient tolerates the procedure well without any overt complication, will be followed up in one month. The patient is to continue wearing the left heel wedge and will receive testosterone cypionate 75 mg IM in the office today for her sarcopenia. The patient, in the past, has responded well to this treatment. [facility] [id number] NoteCONSULTATION CONSULTATION DATE: 11/30/2021 CHIEF COMPLAINT: Low back pain, bilateral lower extremity pain, GI fullness. HISTORY OF PRESENT ILLNESS: This is a very pleasant, 71-year-old female who was seen in the office last week. We performed a deep trigger point injection along the lumbar paravertebral. The patient reported having significant improvement in her discomfort. The patient states she feels more steady in her ambulation. The patient had severe kyphorotoscoliosis. Sitting mitigates the pain. Lying down mitigates the pain. Activities, housework, in the evening the pain increases. Outside work increases the pain. Her is ill and, as such, the patient has had increased responsibilities. The radiofrequency that we had performed in 09/2020 is still helping. The patient takes nabumetone, baclofen 10 mg h.s., gabapentin. She drinks Boost on a regular basis, takes Reclast annually. The patient has been seen by [facility] with regards to the possibility of surgical intervention for the severe rotoscoliosis. The patient's PAST MEDICAL HISTORY / SURGICAL HISTORY / REVIEW OF SYSTEMS are noted on the chart, along with the MEDICATION LIST / ALLERGIES and the RADIOLOGICAL IMAGES. PHYSICAL EXAM: Upon physical examination, this is a pleasant, cooperative female, who does not appear to be in any acute distress. She is a very positive individual. The patient is very vital. Alert, oriented x3. VITAL SIGNS: Stable at 117/60, with a heart rate of 79. At a height of 5'3 , the patient weighs 47.8 kg. The patient drinks Ensure and Boost on a daily basis. NECK: The patient is not guarded in her cervical range of motion. HEART: No orthopnea. LUNGS: The patient has restrictive lung disease secondary to the scoliosis. ABDOMEN: The patient has a constant sense of fullness; however, I believe this is secondary to, again, the mechanical compression. BACK: Severe scoliosis of the thoracolumbar spine. Paravertebral spasming is noted with a rotatory component, shown to be improved with a diagnostic deep lumbar paravertebral on the right hand side. EXTREMITIES: Global atrophy of the muscle is noted. Sarcopenia bilateral. NEUROLOGICALLY: The patient is functional. She ambulates with a cane to steady her gait. PSYCHIATRICALLY: Affect is appropriate and very positive. 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 PLAN: For the sarcopenia, the patient will receive testosterone cypionate 75 mg IM in the office today. We shall authorize botulinum toxin, which the patient has had in the remote past, which has afforded the patient improvement. The last dose of botulinum toxin was on April 13, 2021. Next, the patient will be following up and was encouraged to maintain the communication with [facility] to see whether other options are available. We will repeat the testosterone cypionate on her return visit. The patient understands and would like to proceed. CC: Manjula Marcial M.D.[facility] [id number] NoteCONSULTATION PROCEDURE DATE: 11/23/2021 PREOPERATIVE DIAGNOSIS: Lumbar paravertebral spasm. POSTOPERATIVE DIAGNOSIS: Lumbar paravertebral spasm. PROCEDURE: Lumbar trigger point injection x3. Subsequent to obtaining informed consent, the patient was placed in the prone position. Alcohol prep was used to sterilize the site. A 25 gauge needle was advanced and it comes to rest along the rotators and also the erector spinae muscle, approximately at the level of L2, L3 on the right hand side. Negative aspiration. Marcaine 0.25% along with Kenalog, a total of 40 mg are injected to the three sites in a fan pattern. Negative heme. The patient tolerates the procedure well, without any overt complication. Post procedurally, she reports improvement in her gait and also her ability to try to attain a neutral posture laterally.[facility] [id number] NoteCONSULTATION CONSULTATION DATE: 11/23/2021 CHIEF COMPLAINT: Left leg pain, low back pain. HISTORY OF PRESENT ILLNESS: This is a very pleasant, 71-year-old female who is known to the Pain Clinic. The patient has an MRI of her lumbar spine, CT of the thoracic and CT of the lumbar spine. The patient has severe rotoscoliosis. The patient was seen at the [facility]. The patient states she is functioning well; however, the rotoscoliosis is progressive. We have treated the patient in the past with rhizotomy radiofrequency ablation, which she still finds helpful after it was performed in 2020. The patient was also treated with botulinum toxin, which afforded the patient significant improvement. Activities such as twisting, pushing, housework, lifting, mowing her lawn, bending aggravate the pain. Postprandial the patient also has pain; however, this appears to be secondary to a mechanical component. The patient has had an EGD/colonoscopy. The patient currently takes baclofen 10 mg h.s., Reclast on a yearly basis, gabapentin 100 mg b.i.d., nabumetone 750 mg b.i.d. The patient has had chronic problems with GI disturbances and eating; however, as per my opinion, this appears to be secondary to a mechanical component contributing to the patient's pain. The patient's PAST MEDICAL HISTORY / SURGICAL HISTORY / REVIEW OF SYSTEMS are noted on to the chart, along with the MEDICATION LIST / ALLERGIES and the CT of the lumbar spine was reviewed. PHYSICAL EXAM: Upon physical examination, this is a very pleasant, vital, 71-year-old female, who does not appear to be in any acute distress. The patient ambulates with a cane. VITAL SIGNS: Stable at 133/73, with a heart rate of 79. At a height of 5'3 , the patient weighs 49 kg. FOCUSED EVALUATION - HEAD: Atraumatic. Alert, oriented x3. NECK: Cervicothoracic kyphosis is noted. HEART: No orthopnea is present. LUNGS: The patient is not labored in her breathing. The patient does have a mechanical restricted lung secondary to the severe rotoscoliosis. BACK: Paravertebral spasming is noted on the right hand side, along the thoracolumbar junction. Deep palpation and muscle fatigue is able to improve this component. We are able to get three fingers between the rib and the patient's pelvis. MUSCULOSKELETAL: Global atrophy of the muscles is noted. Sarcopenia. The patient is endomorphic in structure. NEUROLOGICALLY: No radicular symptomatology is noted. PSYCHIATRICALLY: Affect is appropriate. IMPRESSION: Severe rotoscoliosis, lumbar paravertebral spasm, decreased bone density, sarcopenia. PLAN: We will inject the right lumbar trigger point with Marcaine 0.25% to see whether we can improve the patient's function. If this is successful, the patient would be a candidate for a repeat botulinum toxin injection along the right lumbar paravertebral. We have also ordered testosterone cypionate 75 mg IM in office next week. The patient understands and would like to proceed. CC: Manjula Marcial M.D.[facility] [id number] Miscellaneous Notes* Telephone Encounter - Cesilia Adler - 11/16/2021 1:46 PM EDT Received the following record(s) via fax. -MRI tspine wo(report) Date 11/03/21 Record(s) scanned into pt's chart. Cesilia Adler Images requested documented in [facility]09-07-2022 NotePROCEDURE: CT TSPINE WO CON, CT LSPINE WO CON COMPARISON: None. HISTORY: Scoliosis deformity of spine TECHNIQUE: Axial, Coronal, and Sagittal CT images obtained without IV contrast. Dose reduction techniques were achieved by using automated exposure control and/or adjustment of mA and/or kV according to patient size and/or use of iterative reconstruction technique. FINDINGS: PARASPINAL AREA: Normal with no visible mass. DISCS: Moderate to severe multilevel disc space narrowing throughout the lumbar spine with endplate sclerosis and vacuum disks. BONES: Mild dextrocurvature of the thoracic spine. Rotatory levoscoliosis of the lumbar spine measuring 22 degrees from L1 to L5. 6 mm retrolisthesis of right L2 on L3 and 4 mm retrolisthesis of right L3 on 4. 8 mm right lateral subluxation of L2 on L3 and L3 on L4. Severe degenerative changes of the lumbar spine with spondylosis and facet osteoarthropathy OTHER: Narrowing of the right L4-L5 neural foramen IMPRESSION: Severe rotatory levoscoliosis of the lumbar spine with multilevel spondylolisthesis and severe degenerative changes Mild dextrocurvature of the thoracic spine with minimal degenerative change Electronically authenticated by: JEFF FREGOSO Date: 2021-11-03 18:57[facility]09-07[facility] NotePROCEDURE: CT TSPINE WO CON, CT LSPINE WO CON COMPARISON: None. HISTORY: Scoliosis deformity of spine TECHNIQUE: Axial, Coronal, and Sagittal CT images obtained without IV contrast. Dose reduction techniques were achieved by using automated exposure control and/or adjustment of mA and/or kV according to patient size and/or use of iterative reconstruction technique. FINDINGS: PARASPINAL AREA: Normal with no visible mass. DISCS: Moderate to severe multilevel disc space narrowing throughout the lumbar spine with endplate sclerosis and vacuum disks. BONES: Mild dextrocurvature of the thoracic spine. Rotatory levoscoliosis of the lumbar spine measuring 22 degrees from L1 to L5. 6 mm retrolisthesis of right L2 on L3 and 4 mm retrolisthesis of right L3 on 4. 8 mm right lateral subluxation of L2 on L3 and L3 on L4. Severe degenerative changes of the lumbar spine with spondylosis and facet osteoarthropathy OTHER: Narrowing of the right L4-L5 neural foramen IMPRESSION: Severe rotatory levoscoliosis of the lumbar spine with multilevel spondylolisthesis and severe degenerative changes Mild dextrocurvature of the thoracic spine with minimal degenerative change Electronically authenticated by: JEFF FREGOSO Date: 2021-11-03 18:57[facility]08-19-2022 NoteHNO ID: [id number] Author: Ancelmo Sandoval PA-C Service: ? Author Type: Physician Forestry Conservation Worker Type: Progress Notes Filed: 10/18/2021 8:52 AM Note Text: SPINE SURGERY OUTPATIENT CONSULT SERVICE DATE: 10/15/2021 PCP: No primary care provider on file. REFERRING PROVIDER: SELF Consult requested for an opinion regarding the evaluation and treatment of scoliosis. My final impression and recommendations will be communicated back to the requesting physician by way of the shared medical record or letter via US mail. SUBJECTIVE Courtney White is a 70 year old female presenting with spouse. CHIEF COMPLAINT: scoliosis HISTORY OF PRESENT ILLNESS PRECIPITATING EVENT: None DURATION OF SYMPTOMS: Greater Than 1 Year Presents today for consult regarding scoliosis. States she never was diagnosed with scoliosis but 2 years ago she started undergoing epidural injections for radicular pain in the legs and was told by pain management that she had a curvature in the spine. She states she had never noticed it but over the last two years she started to progressively develop a significant curve. Now having low back pain. Feels like she is tilted to the side . Pain in the legs has resolved since undergoing injections. Also undergoing workup for digestive concerns. Was told it may be related to her scoliosis. No numbness, weakness, imbalance, bowel or bladder changes. No hx of spine surgeries. Hx of osteoporosis and has been on medications for >10 years. No hx of compression fractures. There is no problem list on file for this patient. No past medical history on file. No past surgical history on file. No family history on file. Social History Tobacco Use Smoking status: Former Types: Cigarettes Smokeless tobacco: Never Substance Use Topics Alcohol use: Never ALLERGIES Allergen Reactions Amoxicillin Anaphylaxis Macrobid [Nitrofura* Anaphylaxis Sulfa (Sulfonamide * Anaphylaxis MEDICATIONS: gabapentin (NEURONTIN) 100 mg capsule Take 200 mg by mouth twice daily. nabumetone (RELAFEN) 750 mg tablet omeprazole (PRILOSEC) 40 mg capsule TAKE 1 CAPSULE BY MOUTH 2 TIMES DAILY FOR 12 WEEKS zoledronic acid (RECLAST) 5 mg/100 mL pgbk PREMIX piggyback Inject 5 mg intravenously every year. vit A/vit C/vit E/zinc/copper (PRESERVISION AREDS ORAL) Take by mouth. baclofen (LIORESAL) 10 mg tablet Take 10 mg by mouth daily at bedtime. REVIEW OF SYSTEMS: GENERAL: No weight loss or malaise MUSCULOSKELETAL: Negative for joint pain, swelling or muscle pain NEURO: No history of headaches, syncope, paralysis, seizures or tremors Patient Entered Questionnaires PROMIS Score Percentiles Percentiles provide an indication of how the patient's score ranks in relation to the general population. Higher percentile rankings indicate better function/quality of life. 50th percentile is the average of the general population and indicates half of respondents had a worse score. Depression Screening: PHQ-9 Self-Harm (Item 9) response options: 0 Not at all 1 Several days 2 More than half the days 3 Nearly every day PHQ-9 Levels: 0-4 No to mild depression 5-9 Mild depression 10-14 Moderate depression 15-19 Moderately severe depression 20-27 Severe depression OBJECTIVE: PHYSICAL EXAM BP 140/71 Pulse 80 Resp 14 Ht 160 cm (5' 3 ) Wt 50 kg (110 lb 4.8 oz) SpO2 97% BMI 19.54 kg/m? GENERAL APPEARANCE: Well nourished, well developed, and no apparent distress. NEURO PSYCH: Patient oriented to person, place, and time. Mood pleasant. Benign affect. MUSCULOSKELETAL VISUAL INSPECTION CERVICAL: WNL THORACIC: Kyphoscoliosis LUMBAR: Scoliosis PALPATION: SPINOUS PROCESS: No pain. PARASPINALS: No pain. MUSCLE BULK: Normal and symmetrical in the upper AND lower extremities. MUSCLE TONE: Normal. MOTOR: 5/5 in all muscle groups. SENSORY: Normal sensory exam GAIT: Antalgic. REFLEXES: +2 to bilateral U/L extremities. LONG TRACT SIGNS: No Hoffmans. STRAIGHT LEG TEST: Ipsilateral: Negative. Contralateral: Negative. NEURO TESTS: None DATA REVIEW No additional images reviewed today ASSESSMENT/PLAN (M41.9) Scoliosis of thoracolumbar spine, unspecified scoliosis type (primary encounter diagnosis) 2 year hx of severe deformity. No trauma or event that she remembers triggering it. Has worked with pain management for injections for previous leg pain which has now resolved. Only concern now is low back pain. On exam she has a severe kyphoscoliosis of the thoracic spine. Overall she's only slightly forward sagittally. Explained how atypical it is for such a severe deformity to develop in such a short period of time. No imaging available to see if compression fracture or structural pathology is contributing. Scoli X-Ray, MRI and CT scans ordered for a full evaluation. Will likely be scheduled with Dr. Hong after completed. May benefit from neuromuscular referral to (more content not included)... [facility] note* Diagnosis Scoliosis of thoracolumbar spine, unspecified scoliosis type documented in this encounter [facility] note* Diagnosis Encounter for screening for osteoporosis- Primary Special screening for osteoporosis documented in this encounter [facility] noteNo InformationNortUniversity [facility] [place] Other History general Narrative - Reported* Type Description Date Medical History Anemia, unspecified type Medical History Irritable bowel syndrome with co nstipation Medical History Lumbar spondylosis Medical History Osteopenia of right hip Medical History Osteopenia of left hip Medical History Early satiety Medical History Bloating Medical History Lumbosacral spondylosis with rad iculopathy Medical History VALDEZ (generalized anxiety disorde r) Medical History Vitamin D deficiency Medical History Lumbago with sciatica, left side (resolved 07/07/2021) Surgical History LEFT BREAST STEREOTACTIC BX 200 8 Surgical History COLONOSCOPY 2010 Surgical History EGD 2021 Surgical History Colonoscopy 2021 Hospitalization History SEE SURGICAL HX [facility] [place] Other Reason for referral (narrative)* Diagnostic Procedure Only (Routine) - Closed Specialty Diagnoses / Procedures Referred By Mouna mclean Referred To Contact XR IMAGING Diagnoses Scoliosis of thoracolumbar spine, unspecified scoliosis type Procedures XR SCOLIOSIS PA STAND/LAT 2V RADEX ENTIR THRC LMBR CRV SAC SPI W/SKULL 2/3 Ancelmo Wild PA-C [address] [place] [address] Xr Imaging Referral ID Status Reason Start Date Expiration Date V isits Requested Visits Authorized [id number] Closed Auto-Generate d Referral 10/15/2021 11/14/2022 1 1 [facility] for visit Narrative* Diagnostic Procedure Only (Routine) - Closed Specialty Diagnoses / Procedures Referred By Contmary t Referred To Contact XR IMAGING Diagnoses Scoliosis of thoracolumbar spine, unspecified scoliosis type Procedures XR SCOLIOSIS PA STAND/LAT 2V RADEX ENTIR THRC LMBR CRV SAC SPI W/SKULL 2/3 Ancelmo Wild PA-C [address] [place] [address] Xr Imaging Referral ID Status Reason Start Date Expiration Date V isits Requested Visits Authorized [id number] Closed Auto-Generate d Referral 10/15/2021 11/14/2022 1 1 [facility] Summary Purpose Family History No Family History Records FoundNo Family History Records FoundNo Family History Records Found Advance Directives No Advanced Directives Records FoundNo Advanced Directives Records FoundNo Advanced Directives Records Found Additional Source Comments INFORMATION SOURCE (unrecogn ized section and content) DATE CREATED AUTHOR 09/02/[address] [facility] DATE CREATED AUTHOR AUTHOR'S ORGANIZ ATION 03/07/2022 [facility] DATE CREATED AUTHOR AUTHOR'S ORGANIZ ATION 07/13/2022 [facility] Source Comments (unrecognize d section and content) In the event this informatio n is protected by the Federal Confidentiality of Alcohol and Drug Abuse Patient Records regulations: The Federal rules restrict any use of the information to criminally investigate or prosecute any alcohol or drug abuse patient.[facility]In the event this information is protected by the Federal Confidentiality of Alcohol and Drug Abuse Patient Records regulations: The Federal rules restrict any use of the information to criminally investigate or prosecute any alcohol or drug abuse patient.[facility] HospitalIn the event this information is protected by the Federal Confidentiality of Alcohol and Drug Abuse Patient Records regulations: The Federal rules restrict any use of the information to criminally investigate or prosecute any alcohol or drug abuse patient.[facility] Reason for Visit (unrecogniz ed section and content) Cold Reason Comments Results Reason Comments New Patient FOR RECORDS PERTAINING TO PATIENTS WHO ARE OR HAVE BEEN ENROLLED IN A CHEMICAL DEPENDENCY/SUBSTANCEABUSE PROGRAM, SOME INFORMATION MAY BE OMITTED. This clinical summary was aggregated from multiple sources. Caution should be exercised in using it in the provision of clinical care. This summary normalizes information from multiple sources, and as a consequence, information in this document may materially change the coding, format and clinical context of patient data. In addition, data may be omitted in some cases. CLINICAL DECISIONS SHOULD BE BASED ON THE PRIMARY CLINICAL RECORDS. [employer] [facility]. provides no warranty or guarantee of the accuracy or completeness of information in this document.
[2023-05-30 08:50] VITALS: BP 185/89; PULSE 68; TEMP 36.6; O2SAT 99
[2023-05-30 09:49] VITALS: BP 198/88; PULSE 78; O2SAT 96
[2023-05-30 09:53] VITALS: BP 178/86; PULSE 77; O2SAT 97
[2023-05-30] MEDS: ONABOTULINUMTOXINA 200 UNIT VIAL INJ (09:55)
[2023-05-30] MEDS: 0.9 % SODIUM CHLORIDE 10 ML VIAL 6 ML INJ (09:56)
--- NOTE | 2023-05-30 15:55 | W.PM.PROCNOT ---
Date of procedure: 05/30/23 Pre-op diagnosis: PARAVERTEBRAL MUSCLE SPASM Post-op diagnosis: same as pre-op Procedure: PROCEDURE:? Botulinum toxin infiltration of the right erector spinae muscle at the T12-L1 levels under fluoroscopic guidance. PREOPERATIVE DIAGNOSIS:? Pain secondary to thoracolumbar kyphoscoliosis complicated by myofascial dysfunction ? Diagnosis code G24.9 ? involving the erector spinae muscle. POSTOPERATIVE DIAGNOSIS:? Pain secondary to thoracolumbar kyphoscoliosis complicated by myofascial dysfunction ? Diagnosis code G24.9 ? involving the erector spinae muscle. SOLUTION USED FOR INJECTION:? Botulinum toxin type A, 200 units in 5 mL and 2.5 mL used for the injection at each site. IMMEDIATE COMPLICATIONS:? None. PROCEDURE:? After informed consent was obtained from the patient, she was brought to the OR, placed in the prone position.? The skin overlying the area was prepped with the normal sterile fashion.? A 25 gauge spinal needle was inserted over the pedicle at T12 on the right side.? Needle tip advanced until it was encountered.? Needle tip was withdrawn slightly and injection of 100 units of botulinum toxin in 2.5 mL was injected at this area.? This was repeated in a similar fashion at the L1 level.? Post procedure, needle was removed.? Tolerated the procedure well without complications.? She reports a dramatic reduction of pain symptoms post procedurally. Anesthesia: Local Surgeon: Maine Escobar Condition: stable
== END 2023-05-30 10:01 | disposition home or self-care (01) ==
LOC: SURGOUT 08:04
PROVIDERS: PCP Internal Medicine; Visit Provider Anesthesiology Pain Medicine
DX: M62.830 Muscle spasm of back (principal); M41.85 Other forms of scoliosis, thoracolumbar region; G24.9 Dystonia, unspecified
CPT/HCPCS: 64646; 77002; J0585

== ENCOUNTER 2023-06-15 13:54 | Outpatient (OUT) | payer MEDICARE, SELFPAY ==
--- NOTE | 2023-06-15 14:25 | P.CN_ITS ---
Consult Note: HPI Data of Consult Patient: known to practice within the last 3 years Requesting Physician: Hiwot Irving NP Primary Care Provider: Kar Mota, DO Consult Narrative Reason for consult: f/u Narrative: Courtney dougherty pleasant 71 year old female presents for evaluation of chronic low back pain, today 04/08, increasing to 08/06. Patient feels current medication regimen is beneficial, most days pain mild to moderate, improved with proper posture and rest but has noticed increase in muscle spasms. 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 Patient would like to address lumbar RFAs as she has previously benefitted from them in 2020. cc:: CC: Hiwot Irving NP Review of Systems ROS Status of ROS 10 or more systems reviewed and unremark able except as noted in history and below Musculoskeletal Reports: back pain PFSH PFSH Medical History Rheumatoid arthritis ?M06.9 - Rheumatoid arthritis, unspecified (ICD-10) Low back pain ?M54.50 - Low back pain, unspecified (ICD-10) Family history of psychiatric condition ?Z81.8 - Family history of other mental and behavioral disorders (ICD-10) Former smoker ?Z87.891 - Personal history of nicotine dependence (ICD-10) Surgical History History of dilatation and curettage ?Z98.890 - Other specified postprocedural states (ICD-10) Meds Home Medications and Allergies Home Medications ?Medication ?Instructions ?Recorded ?Confirmed ?Type acetaminophen 325 mg tablet (Aphen) 325 mg PO Q6H PRN pain 08/09/22 05/30/23 History [id number]-dlckpcyhimgl tab PO .QD 08/09/22 History 500 mg-200 unit-50 mg-1.2 mg tablet nabumetone 750 mg tablet 750 mg PO BID 08/09/22 05/30/23 History vitamins A,C,B-udui-gffyoq 2,148 2 tab PO BID 08/09/22 05/30/23 History mcg-113 mg-45 mg-17.4 mg tablet (Eye Multivitamin) zoledronic acid 5 mg/100 mL in ea IV .YEARLY 08/09/22 History mannitol 5 %-water intravenous piggybck (Reclast) gabapentin 08/16/22 History baclofen 10 mg tablet 10 mg PO DAILY #30 tabs 11/02/22 05/30/23 Rx Allergies Allergy/AdvReac Type Severity Reaction Status Date / Time amoxicillin Allergy Verified 05/30/23 08:55 nitrofurantoin Allergy Verified 05/30/23 08:55 [From Macrobid] Sulfa (Sulfonamide Allergy Verified 05/30/23 08:55 Antibiotics) Exam Constitutional Documenting provider has reviewed patient's vital signs: yes Common normals: no apparent distress, oriented x3, healthy appearing, alert and well nourished General appearance: cooperative HENMT Common normals: normocephalic, hearing grossly normal bilaterally and moist oral mucous membranes Head and scalp: normocephalic Eye Common normals: PERRL Pupil: PERRL Neck & C-Spine Common normals: full ROM General: normal visual inspection Chest Common normals: inspection of chest normal Respiratory Common normals: normal respiratory effort, no retractions and no use of accessory muscles Back & Pelvis Common normals: no thoracic nor lumbar tenderness Thoracic spine/upper back: thoracic ROM normal Lumbar spine/lower back: lumbar ROM normal, pain with ROM, lumbar spinal tenderness, lumbar scoliosis present and straight leg raise negative bilaterally Other: scoliosis noted on physical exam tenderness over bilateral L4-5 L5-S1 facet joints axial low back pain with positive facet loading Extremity Common normals: normal to inspection, full ROM, normal capillary refill and no joint enlargement Neuro Common normals: oriented x3, CN's II-XII intact bilaterally, moves all extremities, no focal motor deficits, no sensory deficits noted and deep tendon reflexes 2+ bilaterally Sensorium/orientation: alert Gait (neuro): assistive device used cane Motor exam: strength 5/5 throughout and no movement abnormalities noted Psych Common normals: mental status grossly normal, thought process normal, cooperative, affect normal, speech normal and activity/motor behavior normal Speech: normal speech Thought process: normal thought process Results Additional Findings Additional findings: If on a controlled substance or opioids, I have checked an [place] report on this patient and there are no aberrancies noted in the prescribing history.??If on a controlled substance or opioid a drug screen was completed and reviewed within the last year, and if there has not been a drug screen completed we ordered one today to monitor higher risk, state monitored pain medication use. As part of providing excellent, safe, comprehensive care, the following was completed at our patient's visit: 1. A medication reconciliation and review to ensure accurate knowledge of current/active medications, including asking our patients to inform us about any fmnl-yux-cocxddw medications or herbal remedies/nutritional supplements/alternative remedies. 2. A review to specifically ensure our patients have had annual screening for screening for depression, screening for tobacco use, and screening for unhealthy alcohol use. For concerning screenings had a discussion with the patient, provided patient education, and recommended follow-up with primary care provider when appropriate. If patient noted with a risk of falling, they received education on strength, gait, and balance training to prevent future risk of falling. Assessment and Plan Assessment and Plan (1) Lumbar spondylosis: (2) Dystonia, unspecified: (3) Myofascial pain: (4) Scoliosis: Plan right L4-5 L5-S1 facet medial branch blocks working towards RFA continue current medication regimen as tolerated f/u 1 week after each injection
== END 2023-06-15 13:55 | disposition home or self-care (01) ==
LOC: PM 13:55
PROVIDERS: PCP Internal Medicine; Visit Provider Nurse Practitioner
DX: M47.816 Spondylosis without myelopathy or radiculopathy, lumbar region (principal); G24.9 Dystonia, unspecified; M79.18 Myalgia, other site; M41.9 Scoliosis, unspecified
CPT/HCPCS: G0463

== ENCOUNTER 2023-06-27 08:07 | Day surgery (SDC) | payer MEDICARE, SELFPAY ==
--- OUTSIDE RECORDS SUMMARY | 2023-06-27 08:24 | XMS_ITS | CCD ---
Author Organization [facility] Care Team Providers Care Enrichment Specialist Name Role Phone Unavailable Primary Care Provider [...] Consulting Unavailable NAKUL, DR BURNETT Attending Unavailable BALL, DR BURNETT [...] Amoxicillin; Translations: [AMOXICILLIN] Drug Allergy 2 Anaphylaxis [facility] (14 sources) NITROFURANTOIN, MACROCRYSTALS / Nitrofurantoin, Monohydrate; Translations: [NITROFURANTOIN MONOHYD/M-CRYST] Drug Allergy 2 Anaphylaxis [facility] (14 sources) Sulfonamides (Antibiotic); Translations: [SULFA (SULFONAMIDE ANTIBIOTICS)] Drug Allergy 2 Anaphylaxis [facility] (1 source) Amoxicillin Drug Allergy 1 [facility] (2 sources) Nitrofurantoin Drug Allergy 3 [facility] (2 sources) Sulfonamides (Antibiotic) Drug allergy (disorder) 3 [facility] (10 sources) Amoxicillin-Pot Clavulanate Drug allergy 6 Unknown [facility] Other Medications Current Medications Medication Drug Class(es) [...] bedtime. docusate sodium 50 mg / sennosides, long-term 8.6 mg oral tablet (3 sources) Start: [...] w/ intructions for tid *Pick strength-form from [employer] for eRX* Dec, Not-Taking/PRN Start: 09-27-2021 take [...] region] Chronic Other aftercare (2 sources) Other half-way (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; Translations: [OTH SKILLED NURSING CURRENT DRUG THERAPY] Onset: 10-29-2021 Episodic Other aftercare (6 sources) Long-term current use of drug therapy; Translations: [Other half-way (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] Episodic Other bone disease [...] BASO # 0.0 103/ul Normal 0.0-0.1 [facility] Comment on above: Performed By: #### C BC ####[facility] [address] [place], [place] [address]IpAryan Madison Basophils/100 WBC (Bld) 0.7 % Normal 0.2-2.0 [facility] Comment on above: Performed By: #### C BC ####[facility] [address] [place] [address]Dr. Tanner Madison EO # 0.1 103/ul Normal 0.0-0.7 [facility] Comment on above: Performed By: #### C BC ####[facility] [address] [place], [place] [address]Dr. Tanner Madison Eosinophils/100 WBC (Bld) 1.5 % Normal 0.9-7.0 [facility] Comment on above: Performed By: #### C BC ####[facility] [address] [place], [place] [address]Dr. Tanner Madison Erythrocyte distribution width (RBC) [Ratio] 13.2 % Normal 11.0-15.0 [facility] Comment on above: Performed By: #### C BC ####[facility] [address] [place], [place] [address]Dr. Tanner Madison Hematocrit (Bld) [Volume fraction] 34.1 % Critically low 36.0-48.0 [facility] Comment on above: Performed By: #### C BC ####[facility] [address] [place], [place] [address]Dr. Tanner Madison Hemoglobin (Bld) [Mass/Vol] 11.7 g/dL Critically low 12.0-16.0 [facility] Comment on above: Performed By: #### C BC ####[facility] [address] [place], [place] [address]Dr. Tanner Los IG # 0.02 10e3/ul Normal 0.00-0.03 [facility] Comment on above: Performed By: #### C BC ####[facility] [address] [place], [place] [address]Dr. Tanner Madison IG % 0.4 % Normal 0.0-0.5 [facility] Comment on above: Performed By: #### C BC ####[facility] [address] [place], [place] [address]Dr. Virginiasunita Madison LYMPH # 1.2 103/ul Normal 1.2-3.8 [facility] Comment on above: Performed By: #### C BC ####[facility] [address] [place] [address]Dr. Tanner Los Lymphocytes/100 WBC (Bld) 25.6 % Normal 20.5-60.0 [facility] Comment on above: Performed By: #### C BC ####[facility] [address] [place] [address]Dr. Virginiasunita Madison MANUAL DIFF REQ NO Normal [facility] Comment on above: Performed By: #### C BC ####[facility] [address] [place] [address]Dr. Tanner Los MCH (RBC) [Entitic mass] 30.9 pg Normal 26.7-34.0 [facility] Comment on above: Performed By: #### C BC ####[facility] [address] [place], [place] [address]Dr. Virginiasunita Madison MCHC (RBC) [Mass/Vol] 34.3 g/dL Normal 29.9-35.2 [facility] Comment on above: Performed By: #### C BC ####[facility] [address] [place], [place] [address]Dr. Tanner Madison MCV (RBC) [Entitic vol] 90.0 fL Normal 81.0-99.0 [facility] Comment on above: Performed By: #### C BC ####[facility] [address] [place], [place] [address]Dr. Tanner Madison MONO # 0.4 103/ul Normal 0.3-0.8 [facility] Comment on above: Performed By: #### C BC ####[facility] [address] [place], [place] [address]Dr. Tanner Madison Monocytes/100 WBC (Bld) 7.6 % Normal 1.7-12.0 [facility] Comment on above: Performed By: #### C BC ####[facility] [address] [place], [place] [address]Dr. Tanner Madison NEUT # 3.0 103/ul Normal 1.4-6.5 [facility] Comment on above: Performed By: #### C BC ####[facility] [address] [place] [id number]. Tanner Madison Neutrophils/100 WBC (Bld) 64.2 % Normal 43.0-75.0 [facility] Comment on above: Performed By: #### C BC ####[facility] [address] [place] [id number]. Tanner Madison Platelet mean volume (Bld) [Entitic vol] 8.5 fL Critically low 9.5-13.5 [facility] Comment on above: Performed By: #### C BC ####[facility] [address] [place] [id number]. Tanner Madison PLT 269 103/ul Normal 150-450 [facility] Comment on above: Performed By: #### C BC ####[facility] [address] [place] [id number]. Tanner Madison RBC 3.79 106/ul Critically low 4.20-5.40 [facility] Comment on above: Performed By: #### C BC ####[facility] [address] [place] [id number]. Tanner Madison WBC 4.6 103/ul Normal 4.0-11.0 [facility] Comment on above: Performed By: #### C BC ####[facility] [address] [place] [id number]. Tanner Madison MG MAMM SCREEN 3D VIJAYA CADon 03-08-2022 MG MAMM SCREEN 3D VIJAYA CAD Patient: COURTNEY WHITE Exam Date: 03/08/2022 : 1950 Gender:F Ordering : DR KAR MOTA D.O. Admission #: [id number] Family : Order #: [id number] CLICK HERE TO VIEW EXAM RADIOLOGY REPORT [...] breast cancer at age 48. LOCATION: [facility] BREAST COMPOSITION: Extremely dense, which lowers the [...] Fregoso MD on 03/08/2022 at 12:18 Normal [facility] PROF CHEM 8 (BAS METB)on Anion gap [Moles/Vol] 11.0 mmol/L Normal [facility] Comment on above: Performed By: #### T SH, BMP #### [facility] [address] [place] [address] Dr. Tanner Madison Calcium [Mass/Vol] 9.5 mg/dL Normal 8.5-10.1 [facility] Comment on above: Performed By: #### T SH, BMP #### [facility] [address] [place] [address] Dr. Tanner Madison Chloride [Moles/Vol] 103 mmol/L Normal 98-107 [facility] Comment on above: Performed By: #### T SH, BMP #### [facility] [address] [place] [address] Dr. Tanner Madison CO2 [Moles/Vol] 30.1 mmol/L Normal 21.0-32.0 [facility] Comment on above: Performed By: #### T SH, BMP #### [facility] [address] [place] [address] Dr. Tanner Madison Creatinine [Mass/Vol] 0.98 mg/dL Normal 0.55-1.02 [facility] Comment on above: Performed By: #### T SH, BMP #### [facility] [address] [place] [address] Dr. Tanner Madison EGFR-AF NIGERIEN >60 Normal >=60 [facility] Comment on above: Performed By: #### T SH, BMP #### [facility] [address] [address] [address] Tanner Madison EGFR-NON AF NIGERIEN 56 mL/min/1.73m2 Critically low >=60 [facility] Comment on above: Performed By: #### T SH, BMP #### [facility] [address] [address] [address] Tanner Madison Glucose [Mass/Vol] 91 mg/dL Normal 74-106 [facility] Comment on above: Performed By: #### T SH, BMP #### [facility] [address] [address] [address] Tanner Madison Potassium [Moles/Vol] 4.1 mmol/L Normal 3.5-5.1 [facility] Comment on above: Performed By: #### T SH, BMP #### [facility] [address] [place] [address] Dr. Tanner Madison Sodium [Moles/Vol] 140 mmol/L Normal 136-145 [facility] Comment on above: Performed By: #### T SH, BMP #### [facility] [address] [place] [address] Dr. Tanner Madison Urea nitrogen [Mass/Vol] 14.0 mg/dL Normal 7.0-18.0 [facility] Comment on above: Performed By: #### T SH, BMP #### [facility] [address] [place] [address] Dr. Tanner Madison Urea nitrogen/Creatinin e [Mass ratio] 14.3 mg/mg Normal [facility] Comment on above: Performed By: #### T SH, BMP #### [facility] [address] [place] [address] Dr. Tanner Madison TSHon 03-08-2022 TSH 2.659 uIU/mL Normal 0.358-3.740 The [facility] Comment on above: Performed By: #### T SH, BMP #### [facility] [address] [place] [address] Dr. Tanner Madison VITAMIN D 25 OHon 03-08-2022 VIT D 25-OH 63.4 ng/mL Normal [facility] Comment on above: Performed By: #### V ITAD ####[facility] [address] [place], [place] [address]Xu. Tanner Madison VIT D RANGES SEE BELOW Normal [facility] Comment on above: Result Comment: <20 ng/mL Vit D deficient 20 - <30 ng/mL Vit D insufficient 30 - 100 ng/mL Vit D sufficient >100 ng/mL Potential Toxicity Performed By: #### V ITAD ####[facility] [address] [place], [place] [address]Pb. Tanner Madison XR DEXA BONE DENSITYon 03-08 [...] by: MARTA ELIAS Date: 2022-03-08 10:52 Normal [facility] Asa 11-16-2021 SAEED Telephone (MIKE) COURTNEY WHITE ([id number]) 1950 F Date Time Provider Department 11/16/21 [...] Status:Closed by RAYSA RICO on 11/23/21 Normal [facility] MRI LSPINE WO CONon 11-05-19 MRI [facility] WO CON EXAMINATION: MRI [facility] WO CON HISTORY: Scoliosis deformity of spine [...] by: MARTA ELIAS Date: 2021-11-04 06:33 Normal [facility] MRI TSPINE WO CONon 11-04-19 22 MRI [facility] WO CON EXAMINATION: MRI [facility] WO CON HISTORY: Scoliosis deformity of spine [...] JEFF FREGOSO Date: 2021-11-03 19:07 Normal [facility] VIT D 25-OH LABCORPon 2021 Vitamin D, 25-Hydroxy 69.8 ng/mL Normal 30.0-100.0 [facility] Comment on above: Result Comment: Negar min D deficiency has been defined by the [place] of [employer] and an Endocrine Society practice guideline as a level of serum 25-OH vitamin D less than 20 ng/mL (1,2). The Endocrine Society went on to further define vitamin D insufficiency as a level between 21 and 29 ng/mL (2). 1. IOM ([place] of Medicine). 2010. Dietary reference intakes for calcium and D. [place]: The National Academies Press. 2. Mikal MF, Jayy LEMOS, Zi MACHADO, et al. Evaluation, treatment, and prevention of vitamin D deficiency: an Endocrine Society clinical practice guideline. JCEM. 2010; 96(7):1911-30. Performed By: #### V ITADLC #### [facility] [address] [address] [address] Tanner Madison CBC AUTO DIFFon 10-28-2021 BASO # 0.0 103/ul Normal 0.0-0.1 [facility] Comment on above: Performed By: #### C BC #### [facility] [address] [address] [address] Tanner Madison Basophils/100 WBC (Bld) 0.6 % Normal 0.2-2.0 [facility] Comment on above: Performed By: #### C BC #### [facility] [address] [place] [address] Dr. Tanner Madison EO # 0.1 103/ul Normal 0.0-0.7 [facility] Comment on above: Performed By: #### C BC #### [facility] [address] [address] [address] Tanner Madison Eosinophils/100 WBC (Bld) 1.1 % Normal 0.9-7.0 [facility] Comment on above: Performed By: #### C BC #### [facility] [address] [place] [address] Dr. Tanner Madison Erythrocyte distribution width (RBC) [Ratio] 13.5 % Normal 11.0-15.0 [facility] Comment on above: Performed By: #### C BC #### [facility] [address] [place] [address] Dr. Tanner Madison Hematocrit (Bld) [Volume fraction] 31.7 % Critically low 36.0-48.0 [facility] Comment on above: Performed By: #### C BC #### [facility] [address] [place] [address] Dr. Tanner Madison Hemoglobin (Bld) [Mass/Vol] 10.8 g/dL Critically low 12.0-16.0 [facility] Comment on above: Performed By: #### C BC #### [facility] [address] [place] [address] Dr. Tanner Madison IG # 0.01 10e3/ul Normal 0.00-0.03 [facility] Comment on above: Performed By: #### C BC #### [facility] [address] [place] [address] Dr. Tanner Madison IG % 0.2 % Normal 0.0-0.5 [facility] Comment on above: Performed By: #### C BC #### [facility] [address] [place] [address] Dr. Tanner Madison LYMPH # 1.3 103/ul Normal 1.2-3.8 [facility] Comment on above: Performed By: #### C BC #### [facility] [address] [place] [address] Dr. Tanner Madison Lymphocytes/100 WBC (Bld) 24.0 % Normal 20.5-60.0 [facility] Comment on above: Performed By: #### C BC #### [facility] [address] [place] [address] Dr. Tanner Madison MANUAL DIFF REQ NO Normal [facility] Comment on above: Performed By: #### C BC #### [facility] [address] [place] [address] Dr. Tanner Madison MCH (RBC) [Entitic mass] 31.0 pg Normal 26.7-34.0 [facility] Comment on above: Performed By: #### C BC #### [facility] [address] [place] [address] Dr. Tanner Madison MCHC (RBC) [Mass/Vol] 34.1 g/dL Normal 29.9-35.2 [facility] Comment on above: Performed By: #### C BC #### [facility] [address] [place] [address] Dr. Tanner Madison MCV (RBC) [Entitic vol] 91.1 fL Normal 81.0-99.0 [facility] Comment on above: Performed By: #### C BC #### [facility] [address] [address] [address] Tanner Madison MONO # 0.5 103/ul Normal 0.3-0.8 [facility] Comment on above: Performed By: #### C BC #### [facility] [address] [address] [address] Tanner Madison Monocytes/100 WBC (Bld) 8.3 % Normal 1.7-12.0 [facility] Comment on above: Performed By: #### C BC #### [facility] [address] [place] [address] Dr. Tanner Madison NEUT # 3.6 103/ul Normal 1.4-6.5 [facility] Comment on above: Performed By: #### C BC #### [facility] [address] [place] [address] Dr. Tanner Madison Neutrophils/100 WBC (Bld) 65.8 % Normal 43.0-75.0 [facility] Comment on above: Performed By: #### C BC #### [facility] [address] [place] [address] Dr. Tanner Madison Platelet mean volume (Bld) [Entitic vol] 8.6 fL Critically low 9.5-13.5 [facility] Comment on above: Performed By: #### C BC #### [facility] [address] [place] [address] Dr. Tanner Madison PLT 234 103/ul Normal 150-450 [facility] Comment on above: Performed By: #### C BC #### [facility] [address] [place] [address] Dr. Tanner Madison RBC 3.48 106/ul Critically low 4.20-5.40 [facility] Comment on above: Performed By: #### C BC #### [facility] [address] [place] [address] Dr. Tanner Madison WBC 5.4 103/ul Normal 4.0-11.0 [facility] Comment on above: Performed By: #### C BC #### [facility] [address] [place], [place] [address] Dr. Tanner Madison PROF CHEM 8 (BAS METB)on Anion gap [Moles/Vol] 12.7 mmol/L Normal [facility] Comment on above: Performed By: #### B MP ####[facility] [address] [place] [address]Dr. Tanner Madison Calcium [Mass/Vol] 9.2 mg/dL Normal 8.5-10.1 [facility] Comment on above: Performed By: #### B MP ####[facility] [address] [place] [address]Dr. Tanner Madison Chloride [Moles/Vol] 102 mmol/L Normal 98-107 [facility] Comment on above: Performed By: #### B MP ####[facility] [address] [place] [address]Dr. Tanner Madison CO2 [Moles/Vol] 30.4 mmol/L Normal 21.0-32.[address] [facility] Comment on above: Performed By: #### B MP ####[facility] [address] [place] [address]Dr. Tanner Madison Creatinine [Mass/Vol] 1.07 mg/dL Critically high 0.55-1.02 [facility] Comment on above: Performed By: #### B MP ####[facility] [address] [place] [address]Dr. Tanner Madison EGFR-AF NIGERIEN >60 Normal >=[address] [facility] Comment on above: Performed By: #### B MP ####[facility] [address] [place] [id number]. Tanner Madison EGFR-NON AF NIGERIEN 50 mL/min/1.73m2 Critically low >=60 [facility] Comment on above: Performed By: #### B MP ####[facility] [address] [place] [address]Dr. Tanner Madison Glucose [Mass/Vol] 99 mg/dL Normal 74-106 [facility] Comment on above: Performed By: #### B MP ####[facility] [address] [place] [id number]. Tanner Madison Potassium [Moles/Vol] 4.1 mmol/L Normal 3.5-5.1 [facility] Comment on above: Performed By: #### B MP ####[facility] [address] [place] [id number]. Tanner Madison Sodium [Moles/Vol] 141 mmol/L Normal 136-145 [facility] Comment on above: Performed By: #### B MP ####[facility] [address] [place] [id number]. Tanner Madison Urea nitrogen [Mass/Vol] 16.0 mg/dL Normal 7.0-18.0 [facility] Comment on above: Performed By: #### B MP ####[facility] [address] [place] [address]Dr. Tanner Madison Urea nitrogen/Creatinin e [Mass ratio] 15.0 mg/mg Normal [facility] Comment on above: Performed By: #### B MP ####[facility] [address] [place] [id number]. Tanner Madison CNOVon 10-15-2021 CNOV Office Visit (SPNMMN ) COURTNEY WHITE ([id number]) 1950 F Date Time Provider Department 10/15/21 2:00 PM ANCELMO SANDOVAL [facility] During your visit today, we recorded the [...] short period (more content not included)... Normal [facility] XR SCOLIOSIS 2V PA STAND/LAT [...] abnormality. IMPRESSION: Thoracolumbar scoliosis and degenerative changes. Psych Tech: PSCB Transcribe Date/Time: Oct 15 2021 2:52P Dictated by : CHETNA HERNANDEZ MD This examination was interpreted and the report reviewed and electronically signed by: CHETNA HERNANDEZ MD on Oct 15 2021 2:54PM EST [id number] Normal [facility] XR SCOLIOSIS PA STAND/LAT 2V on 10-15-2021 [facility] 08-27-2021 L - -------- Specimen: [id number] Received: 08/27/21 Status: VINOD Radha Num: [id number] Spec Type: Surgical Subm Dr: Will Ma MD Tissues: A Gastric Biopsy (GASTRIC BXS) Procedures: HE Stain/2, Gross/Micro L4 -------- Patient Age/Sex Location Account Attending Physician -------- Courtney White 70/F [id number] Will Ma MD -------- SPEC NUM: [id number] RECD: 08/27/21 STATUS: VINOD GARCIA NUM: [id number] JHONNY: 08/27/21 [facility] DR: Will Ma MD ENTERED: 08/27/21 [facility] DR: SON TYPE: Surgical DEPT: S [...] microscopic findings support the above pathologic diagnosis. [id number] -------- -------- Specimen: [id number] Received: 08/27/21 Status: VINOD Garcia Num: [id number] Spec Type: Surgical Subm Dr: Will Ma MD Tissues: A Gastric Biopsy (GASTRIC BXS) Procedures: HE Stain/2, Gross/Micro L4 -------- Patient: Courtney White [id number] (Continued) -------- Signed (signature on file) Nisreen Marquez MD 08/31/212 Normal [facility] SARS-CoV-2 (COVID-19) RNA JEFFRY+probe Ql (Unsp spec) Negative Normal Negative [facility] Comment on above: Order Comment: Healt hcare Worker?: N Result Comment: Testing for SARS-CoV-2 by RT-PCR This test was developed and its performance characteristics determined by [employer] and validated at the [facility]. This test has not been FDA cleared [...] is terminated or revoked sooner. PERFORMED BY: [place] [address] PATHOLOGIST [employer] SUPERVISOR NISREEN MARQUEZ M.D. Performed By: #### C OVID [address] [facility] #### [place] [id number] [facility] Vital Signs Date Time Vital Sign Value Performing Clinician Facility 09-26-2022 10:30-0400 Body height 160.02 cm [facility] Other [facility] Other 09-26-2022 10:30-0400 Body mass index (BMI) [Ratio] 19.31 kg/m2 [facility] Other [facility] Other 09-26-2022 10:30-0400 Body weight 49.44 kg Kar [employer] Other [facility] Other 09-26-2022 10:30-0400 Diastolic blood pressure 75 mm[Hg] [facility] Other [facility] Other 09-26-2022 10:30-0400 Respiratory rate 12 /min [facility] Other [facility] Other 09-26-2022 10:30-0400 Systolic blood pressure 166 mm[Hg] Kar [employer] Other [facility] Other 02-01-2022 10:22-0500 Body height 160 cm Wellington Hong MD Work Phone: [facility] 02-01-2022 10:22-0500 Body weight 49.9 kg Wellington Hong MD Work Phone: [facility] 02-01-2022 10:22-0500 Diastolic blood pressure 76 mm[Hg] Wellington Hong MD Work Phone: [facility] 02-01-2022 10:22-0500 Heart rate 71 /min Wellington Hong MD Work Phone: [facility] 02-01-2022 10:22-0500 Respiratory rate 14 /min Wellington Hong MD Work Phone: [facility] 02-01-2022 10:22-0500 SaO2% (BldA) [Mass fraction] 98 % Wellington Hong MD Work Phone: [facility] 02-01-2022 10:22-0500 Systolic blood pressure 168 mm[Hg] Wellington Hong MD Work Phone: [facility] Encounters Encounter Date Encounter Type Care Provider Facility Start: 03-27-2023 End: 03-27-2023 ambulatory Kar Nakul Other [facility] Other Start: 03-27-2023 Office outpatient vi sit 15 minutes Kar CHAMORRO [facility] Start: 03-27-2023 Telephone encounter Kar NAILS G [facility] Start: 01-23-2023 End: 01-23-2023 ambulatory Kar Nakul Other [facility] Other Start: 01-23-2023 Telephone encounter Kar NAILS [facility] Start: 11-29-2022 End: 11-29-2022 ambulatory Kar Mota Other [facility] Other Start: 11-29-2022 Telephone encounter Kar NAILS G [facility] Start: 11-28-2022 End: 11-28-2022 ambulatory Kar Mota Other [facility] Other Start: 11-28-2022 Nursing evaluation o f patient and report Kar Mota [facility] Start: 11-28-2022 Telephone encounter Kar NAILS [facility] Start: 10-04-2022 End: 10-04-2022 ambulatory Kar Mota Other [facility] Other Start: 10-04-2022 Telephone encounter Kar Cervantes [facility] Start: 09-26-2022 End: 09-26-2022 ambulatory Kar Mota Other [facility] Other Start: 09-26-2022 Office outpatient vi sit 15 minutes Kar Mota [facility] Start: 07-14-[address] MANJULA MARCIAL Facil ity:[facility] Start: 05-02-2022 End: 05-03-[address] MANJULA MARCIAL Facility:[facility] Start: 03-08-2022 End: 03-09-[address] MANJULA MRACIAL Facility:[facility] Start: 03-02-2022 End: 03-03-[address] MANJULA MARCIAL Facility:[facility] Start: 02-15-2022 Adult health examination Chris Mota Other [facility] Other Start: 02-01-2022 End: 02-01-2022 ambulatory ANCELMO SANDOVAL Facility:[facility] Start: 02-01-2022 End: 02-01-2022 Patient encounter procedure Wellington Hong MD Work Phone: [facility] Comment on above: Encounter for screen ing [...] Start: 11-11-2021 End: 11-11-[address] KAR MOTA Facility:[facility] Start: 11-03-2021 End: 11-04-2021 ambulatory DR KAR MOTA Facility:[facility] Start: 10-28-2021 End: 10-29-[address] KAR MOTA Facility:[facility] Start: 10-15-2021 End: 10-15-2021 ambulatory ANCELMO SANDOVAL Facility:[facility] Start: 10-15-2021 End: 10-15-2021 Subsequent hospital [...] 02-27-2022 ADVANCE DIRECTIVE DISCUSSION ADVANCE DIRECTIVE DISCUSSION [facility] Start: 02-27-2022 DEPRESSION ASSESSMENT DEPRESSION ASS ESSMENT [facility] Start: 10-28-2021 Influenza vaccination INFLUENZA (#1) [facility] Start: 07-25-2021 COVID-19 VACCINE (5 - Booster for Pfizer series) COVID-19 VACCINE (5 - Booster for Pfizer series) [facility] Start: 02-27-2021 ADVANCE DIRECTIVE DISCUSSION ADVANCE DIRECTIVE DISCUSSION [facility] Start: 02-27-2021 DEPRESSION ASSESSMENT DEPRESSION ASS ESSMENT [facility] Start: 2013 BONE DENSITY BONE DENSITY [facility] Start: 2013 PNEUMOCOCCAL: 65+ (1 - PCV) PNEUMOCOCCAL: 65+ (1 - PCV) [facility] Start: 1998 SHINGRIX VACCINE (1 of 2) SHINGRIX VACCINE (1 of 2) [facility] Start: 1993 COLOGUARD (FIT-DNA) COLOGUARD (FIT-D NA) [facility] Start: 1993 Colonoscopy COLONOSCOPY [facility] Start: 1993 COLORECTAL CANCER SCREENING COLORECTAL CANCER SCREENING [facility] Start: [address] COLONOGRAPHY [facility] Start: 1993 DIABETES SCREEN DIABETES SCREEN [facility] Start: 1993 FECAL OCCULT BLOOD FECAL OCCULT BLOO D [facility] Start: 1993 LIPID SCREEN LIPID SCREEN [facility] Start: 1993 SIGMOIDOSCOPY SIGMOIDOSCOPY [facility] Start: 1988 Mammography MAMMOGRAM [facility] Start: 11-13-1967 Urine microalbumin profile DTAP,TDAP,TD (1 - Tdap) [facility] Start: 1966 HEPATITIS C SCREENING HEPATITIS C SC CIERA [facility] Start: 1960 Adult depression screening assessment DEPRESSION SCREENING [facility] End: 03-03-2023 DXA-AXIAL SKELETON DXA-AXIAL SKELETON Radiology Routine Encounter for screening for osteoporosis 1 Occurrences starting 02/01/2022 until 03/03/2023 [facility] Work Phone: Comment on above: 1 Occurrences starti ng 02/01/2022 until 03/03/2023 [place] [facility] lamar Immunizations Immunization Date Immunization Notes Care Provider Cecy brown 11-28-2022 influenza, high dose seasonal, preservative-free Kar Mota Other [employer] Other 11-26-2021 influenza virus vaccine, split virus (incl. purified surface antigen) Kar Mota Other [employer] Other 05-30-2021 COVID-19 Vaccine Pfi zer - Documentation Purposes Only Kar Mota Other [employer] Other 12-04-2020 influenza virus vaccine, split virus (incl. purified surface antigen) Kar Mota Other [employer] Other 11-22-2020 COVID-19 Vaccine Pfi zer - Documentation Purposes Only Kar Mota Other [employer] Other 04-18-2020 COVID-19 Vaccine Pfi zer - Documentation Purposes Only Kar Mota Other [employer] Other 03-28-2020 COVID-19 Vaccine Moderna - Documentation Purposes Only Kar Mota Other [employer] Other 11-07-2019 influenza virus vaccine, split virus (incl. purified surface antigen) Kar Mota Other [employer] Other 11-26-2018 influenza virus vaccine, split virus (incl. purified surface antigen) Kar Mota Other [employer] Other 12-07-2017 influenza virus vaccine, split virus (incl. purified surface antigen) Kar Mota Other [employer] Other 12-19-2016 influenza virus vaccine, split virus (incl. purified surface antigen) Kar Mota Other [employer] Other 12-01-2015 influenza virus vaccine, split virus (incl. purified surface antigen) Kar Mota Other [employer] Other 05-15-2015 pneumococcal conjuga te vaccine, 13 valent Kar Mota Other [employer] Other 12-10-2014 influenza virus vaccine, split virus (incl. purified surface antigen) Kar Mota Other [employer] Other 12-18-2013 tetanus and diphther ia toxoids, adsorbed, preservative free, for adult use (5 Lf of tetanus toxoid and 2 Lf of diphtheria toxoid) Kar Mota Other [employer] Other 2013 pneumococcal polysaccharide vaccine, 23 valent Kar Mota Other [employer] Other 12-17-2012 tetanus and diphther ia toxoids, adsorbed, preservative free, for adult use (5 Lf of tetanus toxoid and 2 Lf of diphtheria toxoid) Kar Mota Other [employer] Other Payers Date Payer Category Payer Medicare HUMANA MEDICARE HUMANA MEDICARE PPO [id number] 2017-Present [phone] [address] [address] [place] [address] PPO [id number] 1961 Medicare [id number] 1950 Unknown [id number] 1948 Unknown [id number] 1948 Unknown [id number] 1948 Unknown [id number] 1948 Unknown [id number] 1948 Unknown [id number] [id number] 1948 Unknown [id number] [id number] 1948 Unknown [id number] [id number] 1948 Unknown [id number] [id number] 1948 Unknown [id number] 1948 Unknown [id number] Social History Date Type Detail Facility Start: 10-15-2021 Tobacco smoking status NHIS Ex-smoker [facility] History of tobacco use Current smoker [facility] History of tobacco use Cigarette Smoker [facility] Start: 10-15-2021 Tobacco use and exposure Smokeless tobacco non-user [facility] Start: 10-15-2021 End: 02-01-2022 Alcohol intake Lifetime non-drinker (finding) [facility] Start: 1950 Sex Assigned At Not on file [facility] Start: 10-05-2021 End: 10-15-2021 Exposure to SARS-CoV-2 (event) Not sure [facility] Sex Assigned At Sex Assigned At Bir th [employer] Other Clinical Notes 10-15-2021 to 03-27-2023 Note [...] increased frequency > 3/24 hours and watery [employer] Other 11-27-2023 Evaluation note* Encounter Date Diagnosis Assessment Notes Treatment Notes Treatment Clinical Notes Dec, Pain in thoracic spine (ICD-10 - M54.6) [employer] Other 10-02-2023 Evaluation note* Encounter Date Diagnosis Assessment Notes Treatment Notes Treatment Clinical Notes Nov, Lumbar spondylosis (ICD-10 - M47.816) [employer] Other 07-31-2023 Evaluation note* Encounter Date Diagnosis [...] but may cause increased bloating. [employer] Other 07-31-2023 Evaluation note* Encounter Date Diagnosis [...] but may cause increased bloating. [employer] Other 12-06-2022 NoteHNO ID: [id number] Author: Wellington Hong MD Service: ? Author [...] obtained and documented by the physician retail assistant. I examined the patient and evaluated [...] when sitting. No partha (more content not included)...[facility]12-06-2022 Instructions* Patient Instructions* Ancelmo Sandoval [...] your usual activities immediately. [facility] History of Present illness Narrative* Wellington [...] obtained and documented by the physician retail assistant. I examined the patient and evaluated [...] Past Histories independently gathered by the clinical senior support analyst and the remaining scribed note accurately describes my personal service to the patient. Wellington Hong MD [facility]22 NoteCONSULTATION CONSULTATION DATE: 01/18/2022 CHIEF COMPLAINT: [...] appointment to see a spinal surgeon at [facility] in the near future. PHYSICAL EXAM: [...] We shall await the patient's evaluation with [facility]. Subsequent to that, we will make [...] this in February, given her 's illness.[id number] Note CONSULTATION PROCEDURE DATE: 12/21/2021 CHIEF COMPLAINT: [...] has responded well to this treatment. [facility] [id number] NoteCONSULTATION CONSULTATION DATE: 11/30/2021 CHIEF COMPLAINT: Low [...] annually. The patient has been seen by [facility] with regards to the possibility of surgical [...] was encouraged to maintain the communication with [facility] to see whether other options are available. We will repeat the testosterone cypionate on her return visit. The patient understands and would like to proceed. CC: Manjula Marcial M.D.[facility] [id number] NoteCONSULTATION PROCEDURE DATE: 11/23/2021 PREOPERATIVE DIAGNOSIS: Lumbar [...] try to attain a neutral posture laterally.[facility] [id number] NoteCONSULTATION CONSULTATION DATE: 11/23/2021 CHIEF COMPLAINT: Left leg pain, low back pain. HISTORY OF PRESENT ILLNESS: This is a very pleasant, 71-year-old female who is known to the [facility]. The patient has an MRI of her lumbar spine, CT of the thoracic and CT of the lumbar spine. The patient has severe rotoscoliosis. The patient was seen at the [facility]. The patient states she is functioning well; [...] like to proceed. CC: Manjula Marcial M.D.[facility] [id number] Miscellaneous Notes* Telephone Encounter - Cesilia Adler - 11/16/2021 1:46 PM EDT Received the following record(s) via fax. -MRI tspine wo(report) Date 11/03/21 Record(s) scanned into pt's chart. Cesilia Adler Images requested [facility]20[facility] NotePROCEDURE: CT TSPINE WO CON, CT [...] Electronically authenticated by: JEFF FREGOSO Date: 2021-11-03 18:57[facility]09-07-2022 NotePROCEDURE: CT TSPINE WO CON, CT LSPINE [...] Electronically authenticated by: JEFF FREGOSO Date: 2021-11-03 18:57[facility]08-19-2022 NoteHNO ID: [id number] Author: Ancelmo Sandoval PA-C Service: ? Author Type: Physician Bicycle I Assembler Type: Progress Notes Filed: 10/18/2021 8:52 AM [...] neuromuscular referral to (more content not included)... [facility] note* Diagnosis Scoliosis of thoracolumbar spine, unspecified scoliosis type documented in this encounter [facility] note* Diagnosis Encounter for screening for osteoporosis- Primary Special screening for osteoporosis documented in this encounter [facility] noteNo InformationN[facility] [email or web address] Other History general Narrative - Reported* Type [...] Colonoscopy 2021 Hospitalization History SEE SURGICAL HX [facility] [email or web address] Other Reason for referral (narrative)* Diagnostic Procedure Only (Routine) - Closed Specialty Diagnoses / Procedures Referred By Mouna mclean Referred To Contact XR IMAGING Diagnoses Scoliosis of thoracolumbar spine, unspecified scoliosis type Procedures XR SCOLIOSIS PA STAND/LAT 2V RADEX ENTIR THRC LMBR CRV SAC SPI W/SKULL 2/3 Ancelmo Wild PA-C [address] [place] [address] Xr Imaging Referral ID Status Reason Start Date Expiration Date V isits Requested Visits Authorized [id number] Closed Auto-Generate d Referral 10/15/2021 11/14/2022 1 1 [facility] for visit Narrative* Diagnostic Procedure Only (Routine) - Closed Specialty Diagnoses / Procedures Referred By Contmary t Referred To Contact XR IMAGING Diagnoses Scoliosis of thoracolumbar spine, unspecified scoliosis type Procedures XR SCOLIOSIS PA STAND/LAT 2V RADEX ENTIR THRC LMBR CRV SAC SPI W/SKULL 2/3 Ancelmo Wild PA-C [address] [place] [address] Xr Imaging Referral ID Status Reason Start Date Expiration Date V isits Requested Visits Authorized [id number] Closed Auto-Generate d Referral 10/15/2021 11/14/2022 1 1 [facility] Summary Purpose Family History No Family History Records FoundNo Family History Records FoundNo Family History Records Found Advance Directives No Advanced Directives Records FoundNo Advanced Directives Records FoundNo Advanced Directives Records Found Additional Source Comments INFORMATION SOURCE (unrecogn ized section and content) DATE CREATED AUTHOR 09/02/2021 [facility] DATE CREATED AUTHOR AUTHOR'S ORGANIZ ATION 03/07/2022 [facility] DATE CREATED AUTHOR AUTHOR'S ORGANIZ ATION 07/13/2022 [facility] Source Comments (unrecognize d section and content) In the event this informatio n is protected by the Federal Confidentiality of Alcohol and Drug Abuse Patient Records regulations: The Federal rules restrict any use of the information to criminally investigate or prosecute any alcohol or drug abuse patient.[facility] Hospital[facility] the event this information is protected by the Federal Confidentiality of Alcohol and Drug Abuse Patient Records regulations: The Federal rules restrict any use of the information to criminally investigate or prosecute any alcohol or drug abuse patient.[facility] Hospital[facility] the event this information is protected by the Federal Confidentiality of Alcohol and Drug Abuse Patient Records regulations: The Federal rules restrict any use of the information to criminally investigate or prosecute any alcohol or drug abuse patient.[facility] Reason for Visit (unrecogniz ed section [...] BE BASED ON THE PRIMARY CLINICAL RECORDS. [facility]. provides no warranty or guarantee of the accuracy or completeness of information in this document.
[2023-06-27 08:42] VITALS: BP 162/78; PULSE 76; TEMP 36.6; O2SAT 97
[2023-06-27 09:21] VITALS: BP 176/83; PULSE 78; O2SAT 96
[2023-06-27] MEDS: BUPIVACAINE HCL 0.25% PF 25 MG/10 ML VIAL 5 ML INJ (09:21)
[2023-06-27 09:23] VITALS: BP 170/82; PULSE 73; O2SAT 95
--- NOTE | 2023-06-27 10:13 | W.PM.PROCNOT ---
Date of procedure: 06/27/23 Pre-op diagnosis: Lumbar spondylosis Post-op diagnosis: same as pre-op Procedure: Bilateral Lumbar 4/5, 5/sacral 1 medial branch block Under fluoroscopic guidance Solution injected: 2millilitersMarcaine 0.25% Anesthesia :none Immediate complications none Time out process compliant After informed consent obtained from the patient placed in the Prone proposition . area was prepped and draped in a sterile fashion using Cloraprep .25 gauge spinal needle inserted over each of the above mentioned target areas . [place] were directed towards the target under fluoroscopic guidance . after encountering each of the targets , no indication of intravascular intraneuronal or intrathecal needle tip placement. Then 0 .5 to 1 Milliliter was injected at each level. [place] removed postoperatively. patient transferred to recovery in stable condition to be discharged home after meeting criteria Anesthesia: Local Surgeon: Maine Escobar Condition: stable
== END 2023-06-27 09:35 | disposition home or self-care (01) ==
LOC: SURGOUT 08:07
PROVIDERS: PCP Internal Medicine; Visit Provider Anesthesiology Pain Medicine
DX: M47.816 Spondylosis without myelopathy or radiculopathy, lumbar region (principal)
CPT/HCPCS: 64493; 64494

== ENCOUNTER 2023-07-06 09:17 | Outpatient (OUT) | payer MEDICARE, SELFPAY ==
--- NOTE | 2023-07-06 09:59 | PM.CN ---
Consult Note: HPI Data of Consult Patient: known to practice within the last 3 years Requesting Physician: Hiwot Irving NP Primary Care Provider: Kar Mota, DO Consult Narrative Reason for consult: f/u Narrative: Courtney dougherty pleasant 71 year old female presents for evaluation of chronic low back pain, today 04/08, increasing to 08/06. Patient feels current medication regimen is beneficial, most days pain mild to moderate, improved with proper posture and rest but has noticed increase in muscle spasms. 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 Recent bilateral L4-5 L5-S1 MBB #1 provided >80% improvement immediately following and hours after. cc:: CC: Hiwot Irving NP Review of Systems ROS Status of ROS 10 or more systems reviewed and unremarkable except as noted in history and below Musculoskeletal Reports: back pain PFSH PFSH Medical History Rheumatoid arthritis ?M06.9 - Rheumatoid arthritis, unspecified (ICD-10) Low back pain ?M54.50 - Low back pain, unspecified (ICD-10) Family history of psychiatric condition ?Z81.8 - Family history of other mental and behavioral disorders (ICD-10) Former smoker ?Z87.891 - Personal history of nicotine dependence (ICD-10) Surgical History History of dilatation and curettage ?Z98.890 - Other specified postprocedural states (ICD-10) Meds Home Medications and Allergies Home Medications ?Medication ?Instructions ?Recorded ?Confirmed ?Type acetaminophen 325 mg tablet (Aphen) 325 mg PO Q6H PRN pain 08/09/22 06/27/23 History wguwgja-N7-deu-V9-[id number]-tzbqmvdeqqcb tab PO .QD 08/09/22 History 500 mg-200 unit-50 mg-1.2 mg tablet nabumetone 750 mg tablet 750 mg PO BID 08/09/22 06/27/23 History vitamins A,C,K-fvvj-ppotcn 2,148 2 tab PO BID 08/09/22 06/27/23 History mcg-113 mg-45 mg-17.4 mg tablet (Eye Multivitamin) zoledronic acid 5 mg/100 mL in ea IV .YEARLY 08/09/22 History mannitol 5 %-water intravenous piggybck (Reclast) gabapentin 08/16/22 History baclofen 10 mg tablet 10 mg PO DAILY #30 tabs 11/02/22 06/27/23 Rx Allergies Allergy/AdvReac Type Severity Reaction Status Date / Time amoxicillin Allergy Verified 06/27/23 08:43 nitrofurantoin Allergy Verified 06/27/23 08:43 [From Macrobid] Sulfa (Sulfonamide Allergy Verified 06/27/23 08:43 Antibiotics) Exam Constitutional Documenting provider has reviewed patient's vital signs: yes Common normals: no apparent distress, oriented x3, healthy appearing, alert and well nourished General appearance: cooperative HENMT Common normals: normocephalic, hearing grossly normal bilaterally and moist oral mucous membranes Head and scalp: normocephalic Eye Common normals: PERRL Pupil: PERRL Neck & C-Spine Common normals: full ROM General: normal visual inspection Chest Common normals: inspection of chest normal Respiratory Common normals: normal respiratory effort, no retractions and no use of accessory muscles Back & Pelvis Common normals: no thoracic nor lumbar tenderness Thoracic spine/upper back: thoracic ROM normal Lumbar spine/lower back: lumbar ROM normal, pain with ROM, lumbar spinal tenderness, lumbar scoliosis present and straight leg raise negative bilaterally Other: scoliosis noted on physical exam tenderness over bilateral L4-5 L5-S1 facet joints axial low back pain with positive facet loading Extremity Common normals: normal to inspection, full ROM, normal capillary refill and no joint enlargement Neuro Common normals: oriented x3, CN's II-XII intact bilaterally, moves all extremities, no focal motor deficits, no sensory deficits noted and deep tendon reflexes 2+ bilaterally Sensorium/orientation: alert Gait (neuro): assistive device used cane Motor exam: strength 5/5 throughout and no movement abnormalities noted Psych Common normals: mental status grossly normal, thought process normal, cooperative, affect normal, speech normal and activity/motor behavior normal Speech: normal speech Thought process: normal thought process Results Additional Findings Additional findings: If on a controlled substance or opioids, I have checked an [place] report on this patient and there are no aberrancies noted in the prescribing history.??If on a controlled substance or opioid a drug screen was completed and reviewed within the last year, and if there has not been a drug screen completed we ordered one today to monitor higher risk, state monitored pain medication use. As part of providing excellent, safe, comprehensive care, the following was completed at our patient's visit: 1. A medication reconciliation and review to ensure accurate knowledge of current/active medications, including asking our patients to inform us about any iqwf-xmp-xjreluk medications or herbal remedies/nutritional supplements/alternative remedies. 2. A review to specifically ensure our patients have had annual screening for screening for depression, screening for tobacco use, and screening for unhealthy alcohol use. For concerning screenings had a discussion with the patient, provided patient education, and recommended follow-up with primary care provider when appropriate. If patient noted with a risk of falling, they received education on strength, gait, and balance training to prevent future risk of falling. Assessment and Plan Assessment and Plan (1) Lumbar spondylosis: (2) Dystonia, unspecified: (3) Myofascial pain: (4) Scoliosis: Plan bilateral L4-5 L5-S1 facet medial branch blocks working towards RFA continue current medication regimen as tolerated MEDIA SALES REPRESENTATIVE reviewed and signed depression screening positive, recommend f/u with PCP, denies SI/SH f/u 1 week after each injection
== END 2023-07-06 09:18 | disposition home or self-care (01) ==
LOC: PM 09:18
PROVIDERS: PCP Internal Medicine; Visit Provider Nurse Practitioner
DX: M47.816 Spondylosis without myelopathy or radiculopathy, lumbar region (principal); G24.9 Dystonia, unspecified; M79.18 Myalgia, other site; M41.9 Scoliosis, unspecified
CPT/HCPCS: G0463

== ENCOUNTER 2023-07-18 07:28 | Day surgery (SDC) | payer MEDICARE, SELFPAY ==
--- OUTSIDE RECORDS SUMMARY | 2023-07-18 07:31 | XMS_ITS | CCD ---
Author Organization [facility] CliniSymo Care Team Providers Care Outside Sales Executive Name Role Phone Unavailable Primary Care Provider Unavailalcides e BONUS, ANCELMO Attending Unavailable BONUS, ANCELMO Referring Unavailable BONUS, ANCELMO Referring Unavailable WELLINGTON HONG Attending Unavailable Unavailable Primary Care Provider Unavailalcides MARCIAL, DR MANJULA Hart Primary Care Unavailable KIMBERLY ., DR DUC Smith Attending Unavailable HARRIS ., DR DUC Smith Admitting Unavailable HARRIS ., DR DUC Smith Consulting Unavailable AGGIE, DR MANJULA Hart Primary Care Unavailable HARRIS ., DR DUC Smith Consulting Unavailable HARRIS ., DR DUC Smith Attending Unavailable HARRIS ., DR DUC Smith Admitting Unavailable AGGIE, DR MANJULA Hart Primary Care Unavailable HARRIS ., DR DUC Smith Consulting Unavailable HARRIS ., DR DUC Smith Attending Unavailable HARRIS ., DR DUC Smith Admitting Unavailable MARCIAL, DR MANJULA Hart Primary Care Unavailable CHERY ., MARTINEZ Attending Unavailable CHERY ., MARTINEZ Admitting Unavailable AGGIE, DR MANJULA Hart Primary Care Unavailable HARRIS ., DR DUC Smith Consulting Unavailable HARRIS ., DR DUC Smith Attending Unavailable HARRIS ., DR DUC Smith Admitting Unavailable HARRIS ., DR DUC Smith Consulting Unavailable HARRIS ., DR DUC Smith Attending Unavailable HARRIS ., DR DUC Smith Admitting Unavailable AGGIE, DR MANJULA Hart Primary Care Unavailable NAKUL, DR BURNETT Admitting Unavailable BALL, DR BURNETT Primary Care Unavailable BALL, DR BURNETT Consulting Unavailable BALL, DR BURNETT Attending Unavailable BALL, DR BURNETT Primary Care Unavailable WEST, DR JEFF Choi Consulting Unavailable MISC, DR GALLEGOS Admitting Unavailable MISC, DR GALLEGOS Attending Unavailable MISC, DR AGLLEGOS Consulting Unavailable MATTEBSTEVE, DR MARTA Tyler Consulting Unavailable BALL, DR BURNETT Admitting Unavailable BALL, DR BURNETT Primary Care Unavailable BALL, DR BURNETT Consulting Unavailable BALL, DR BURNETT Attending Unavailable MARCIAL, DR MANJULA Hart Primary Care Unavailable BALL, DR BURNETT Consulting Unavailable BALL, DR BURNETT Attending Unavailable BALL, DR BURNETT Admitting Unavailable WEST, DR JEFF Choi Consulting Unavailable DR MARTA ELIAS Consulting Unavailable KIMBERLY ., DR DUC Smith Attending Unavailable KIMBERLY ., DR DUC Smith Admitting Unavailable AGGIE, DR MANJULA Hart Primary Care Unavailable AGGIE, DR MANJULA Hart Consulting Unavailable KIMBERLY ., DR DUC Smith Consulting Unavailable Kar Mota Unavailable Allergies Allergy Classification Reported Allergen(s) Allergy Type Date of Onset Reaction(s) Facility (4 sources) Amoxicillin; Translations: [AMOXICILLIN] Drug Allergy 2 Anaphylaxis [facility] (14 sources) NITROFURANTOIN, MACROCRYSTALS / Nitrofurantoin, Monohydrate; Translations: [NITROFURANTOIN MONOHYD/M-CRYST] Drug Allergy 2 Anaphylaxis [facility] (14 sources) Sulfonamides (Antibiotic); Translations: [SULFA (SULFONAMIDE ANTIBIOTICS)] Drug Allergy 2 Anaphylaxis [facility] (1 source) Amoxicillin Drug Allergy 1 [facility] (2 sources) Nitrofurantoin Drug Allergy 3 [facility] (2 sources) Sulfonamides (Antibiotic) Drug allergy (disorder) 3 [facility] (10 sources) Amoxicillin-Pot Clavulanate Drug allergy 6 Unknown [facility] Other Medications Current Medications Medication Drug Class(es) [...] bedtime. docusate sodium 50 mg / sennosides, fpc 8.6 mg oral tablet (3 sources) Start: [...] w/ intructions for tid *Pick strength-form from Xanitos for eRX* Dec, Not-Taking/PRN Start: 09-27-2021 take [...] region] Chronic Other aftercare (2 sources) Other fci (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; Translations: [OTH SENIOR CARE CURRENT DRUG THERAPY] Onset: 10-29-2021 Episodic Other aftercare (6 sources) Long-term current use of drug therapy; Translations: [Other exterminator (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] Episodic Other bone disease [...] BASO # 0.0 103/ul Normal 0.0-0.1 [facility] Comment on above: Performed By: #### C BC ####[facility] [address] [place], [place] [address]HbAryan Madison Basophils/100 WBC (Bld) 0.7 % Normal 0.2-2.0 [facility] Comment on above: Performed By: #### C BC ####[facility] [address] [place] [id number]. Tanner Madison EO # 0.1 103/ul Normal 0.0-0.7 [facility] Comment on above: Performed By: #### C BC ####[facility] [address] [place] [address]Dr. Tanner Madison Eosinophils/100 WBC (Bld) 1.5 % Normal 0.9-7.0 [facility] Comment on above: Performed By: #### C BC ####[facility] [address] [place] [address]Dr. Tanner Madison Erythrocyte distribution width (RBC) [Ratio] 13.2 % Normal 11.0-15.0 [facility] Comment on above: Performed By: #### C BC ####[facility] [address] [place], [place] [address]Dr. Tanner Madison Hematocrit (Bld) [Volume fraction] 34.1 % Critically low 36.0-48.0 [facility] Comment on above: Performed By: #### C BC ####[facility] [address] [place], [place] [address]Dr. Tanner Madison Hemoglobin (Bld) [Mass/Vol] 11.7 g/dL Critically low 12.0-16.0 [facility] Comment on above: Performed By: #### C BC ####[facility] [address] [place] [address]Dr. Tanner Madison IG # 0.02 10e3/ul Normal 0.00-0.03 [facility] Comment on above: Performed By: #### C BC ####[facility] [address] [place] [address]Dr. Tanner Madison IG % 0.4 % Normal 0.0-0.5 [facility] Comment on above: Performed By: #### C BC ####[facility] [address] [place], [place] [address]Dr. Tanner Madison LYMPH # 1.2 103/ul Normal 1.2-3.8 [facility] Comment on above: Performed By: #### C BC ####[facility] [address] [place] [address]Dr. Tanner Madison Lymphocytes/100 WBC (Bld) 25.6 % Normal 20.5-60.0 [facility] Comment on above: Performed By: #### C BC ####[facility] [address]ep[address]jxm[address] [place] [address]Dr. Tanner Madison MANUAL DIFF REQ NO Normal [facility] Comment on above: Performed By: #### C BC ####[facility] [address] [place] [address]Dr. Tanner Los MCH (RBC) [Entitic mass] 30.9 pg Normal 26.7-34.0 [facility] Comment on above: Performed By: #### C BC ####[facility] [address]lfmc[address] [place] [address]Dr. Tanner Madison MCHC (RBC) [Mass/Vol] 34.3 g/dL Normal 29.9-35.2 [facility] Comment on above: Performed By: #### C BC ####[facility] [address] [place] [address]Dr. Tanner Madison MCV (RBC) [Entitic vol] 90.0 fL Normal 81.0-99.0 [facility] Comment on above: Performed By: #### C BC ####[facility] [address]jofpqpit[address] [place] [address]Dr. Tanner Los MONO # 0.4 103/ul Normal 0.3-0.8 [facility] Comment on above: Performed By: #### C BC ####[facility] [address]es[address] [place] [address]Dr. Tanner Los Monocytes/100 WBC (Bld) 7.6 % Normal 1.7-12.0 [facility] Comment on above: Performed By: #### C BC ####[facility] [address] [place] [address]Dr. Virginiasunita Los NEUT # 3.0 103/ul Normal 1.4-6.5 [facility] Comment on above: Performed By: #### C BC ####[facility] [address] [place], [place] [address]Ph. Tanner Madison Neutrophils/100 WBC (Bld) 64.2 % Normal 43.0-75.0 [facility] Comment on above: Performed By: #### C BC ####[facility] [address] [place], [place] [address]Ib. Tanner Madison Platelet mean volume (Bld) [Entitic vol] 8.5 fL Critically low 9.5-13.5 [facility] Comment on above: Performed By: #### C BC ####[facility] [address] [place] [address]Dr. Tanner Madison PLT 269 103/ul Normal 150-450 [facility] Comment on above: Performed By: #### C BC ####[facility] [address] [place] [address]Dr. Tanner Madison RBC 3.79 106/ul Critically low 4.20-5.40 [facility] Comment on above: Performed By: #### C BC ####[facility] [address] [place], [place] [address]Ah. Tanner Madison WBC 4.6 103/ul Normal 4.0-11.0 [facility] Comment on above: Performed By: #### C BC ####[facility] [address] [place] [address]Dr. Tanner Madison MG MAMM SCREEN 3D VIAJYA CADon 03-08-2022 MG MAMM SCREEN 3D VIJAYA CAD Patient: COURTNEY WHITE Exam Date: 03/08/2022 : 1950 Gender:F Ordering : DR KAR MOTA D.O. Admission #: [id number] Family : Order #: [id number] CLICK HERE TO VIEW EXAM RADIOLOGY REPORT [...] breast cancer at age 48. LOCATION: [facility] BREAST COMPOSITION: Extremely dense, which lowers the [...] Fregoso MD on 03/08/2022 at 12:18 Normal [facility] PROF CHEM 8 (BAS METB)on Anion gap [Moles/Vol] 11.0 mmol/L Normal [facility] Comment on above: Performed By: #### T TYRA, BMP #### [facility] [address] [place] [address] Dr. Tanner Madison Calcium [Mass/Vol] 9.5 mg/dL Normal 8.5-10.1 [facility] Comment on above: Performed By: #### T SH, BMP #### [facility] [address] [place] [address] Dr. Tanner Madison Chloride [Moles/Vol] 103 mmol/L Normal 98-107 [facility] Comment on above: Performed By: #### T TYRA, BMP #### [facility] [address] [place] [address] Dr. Tanner Madison CO2 [Moles/Vol] 30.1 mmol/L Normal 21.0-32.0 [facility] Comment on above: Performed By: #### T SH, BMP #### [facility] [address] [place] [address] [address] Tanner Madison Creatinine [Mass/Vol] 0.98 mg/dL Normal 0.55-1.02 [facility] Comment on above: Performed By: #### T SH, BMP #### [facility] [address] [place] [address] Dr. Tanner Madison EGFR-AF [place] ISLANDER >60 Normal >=60 [facility] Comment on above: Performed By: #### T SH, BMP #### [facility] [address] [place] [address] [address] Tanner Madison EGFR-NON AF [place]LANDER 56 mL/min/1.73m2 Critically low >=60 [facility] Comment on above: Performed By: #### T SH, BMP #### [facility] [address] [place] [address] [address] Tanner Madison Glucose [Mass/Vol] 91 mg/dL Normal 74-106 [facility] Comment on above: Performed By: #### T SH, BMP #### [facility] [address] [place] [address] [address] Tanner Madison Potassium [Moles/Vol] 4.1 mmol/L Normal 3.5-5.1 [facility] Comment on above: Performed By: #### T SH, BMP #### [facility] [address] [place] [address] [address] Tanner Madison Sodium [Moles/Vol] 140 mmol/L Normal 136-145 [facility] Comment on above: Performed By: #### T SH, BMP #### [facility] [address] [place] [address] [address] Tanner Madison Urea nitrogen [Mass/Vol] 14.0 mg/dL Normal 7.0-18.0 [facility] Comment on above: Performed By: #### T SH, BMP #### [facility] [address] [place] [address] [address] Tanner Madison Urea nitrogen/Creatinin e [Mass ratio] 14.3 mg/mg Normal [facility] Comment on above: Performed By: #### T SH, BMP #### [facility] [address] [place] [address] [address] Tanner Madison TSHon 03-08-2022 TSH 2.659 uIU/mL Normal 0.358-3.740 [facility] Comment on above: Performed By: #### T SH, BMP #### [facility] [address] [place] [address] [address] Tanner Madison VITAMIN D 25 OHon 03-08-2022 VIT D 25-OH 63.4 ng/mL Normal [facility] Comment on above: Performed By: #### V ITAD ####[facility] [address] [place], [place] [address]GnAryan Madison VIT D RANGES SEE BELOW Normal [facility] Comment on above: Result Comment: <20 ng/mL Vit D deficient 20 - <30 ng/mL Vit D insufficient 30 - 100 ng/mL Vit D sufficient >100 ng/mL Potential Toxicity Performed By: #### V ITAD ####[facility] [address] [place], [place] [address]Ky. Tanner Madison XR DEXA BONE DENSITYon 03-08 [...] by: MARTA ELIAS Date: 2022-03-08 10:52 Normal [facility] Asa 11-16-2021 SAEED Telephone (MIKE) COURTNEY WHITE ([id number]) 1950 F Date Time Provider Department 11/16/21 ANCELMO SANDOVAL During your visit today, we recorded the following information about you: Cesilia Adler 11/16/2021 1:47 PM Signed Received the following record(s) via fax. -MRI tspine wo(report) Date 11/03/21 Record(s) scanned into pt's chart. Cesilia Nayely Images requested Allergies As of Date: 11/16/2021 Noted [...] Status:Closed by RAYSA RICO on 11/23/21 Normal [facility] MRI LSPINE WO CONon 11-05-19 MRI [facility] WO CON EXAMINATION: MRI LSNEPTUNE WO CON HISTORY: Scoliosis deformity of spine [...] by: MARTA ELIAS Date: 2021-11-04 06:33 Normal [facility] MRI TSPINE WO CONon 11-04-19 22 MRI [facility] WO CON EXAMINATION: MRI [facility] WO CON HISTORY: Scoliosis deformity of spine [...] JEFF FREGOSO Date: 2021-11-03 19:07 Normal [facility] VIT D 25-OH LABCORPon 2021 Vitamin D, 25-Hydroxy 69.8 ng/mL Normal 30.0-100.0 [facility] Comment on above: Result Comment: Negar min D deficiency has been defined by the [place] of [employer] and an Endocrine Society practice guideline as a level of serum 25-OH vitamin D less than 20 ng/mL (1,2). The Endocrine Society went on to further define vitamin D insufficiency as a level between 21 and 29 ng/mL (2). 1. IOM ([place] of [employer]). 2010. Dietary reference intakes for calcium and D. [place]: The National Academies Press. 2. Mikal MF, Jayy NC, Zi MACHADO, et al. Evaluation, treatment, and prevention of vitamin D deficiency: an Endocrine Society clinical practice guideline. JCEM. 2010; 96(7):1911-30. Performed By: #### V ITADLC #### [facility] [address] [place] [address] [address] Tanner Madison CBC AUTO DIFFon 10-28-2021 BASO # 0.0 103/ul Normal 0.0-0.1 [facility] Comment on above: Performed By: #### C BC #### [facility] [address] [place] [address] [address] Tanner Madison Basophils/100 WBC (Bld) 0.6 % Normal 0.2-2.0 [facility] Comment on above: Performed By: #### C BC #### [facility] [address] [place] [address] [address] Tanner Madison EO # 0.1 103/ul Normal 0.0-0.7 [facility] Comment on above: Performed By: #### C BC #### [facility] [address] [place] [address] [address] Tanner Madison Eosinophils/100 WBC (Bld) 1.1 % Normal 0.9-7.0 [facility] Comment on above: Performed By: #### C BC #### [facility] [address] [place] [address] [address] Tanner Madison Erythrocyte distribution width (RBC) [Ratio] 13.5 % Normal 11.0-15.0 [facility] Comment on above: Performed By: #### C BC #### [facility] [address] [place] [address] [address] Tanner Madison Hematocrit (Bld) [Volume fraction] 31.7 % Critically low 36.0-48.0 [facility] Comment on above: Performed By: #### C BC #### [facility] [address] [place] [address] [address] Tanner Madison Hemoglobin (Bld) [Mass/Vol] 10.8 g/dL Critically low 12.0-16.0 [facility] Comment on above: Performed By: #### C BC #### [facility] [address] [place] [address] Dr. Tanner Madison IG # 0.01 10e3/ul Normal 0.00-0.03 [facility] Comment on above: Performed By: #### C BC #### [facility] [address] [place] [address] Dr. Tanner Madison IG % 0.2 % Normal 0.0-0.5 [facility] Comment on above: Performed By: #### C BC #### [facility] [address] [place] [address] Dr. Tanner Madison LYMPH # 1.3 103/ul Normal 1.2-3.8 [facility] Comment on above: Performed By: #### C BC #### [facility] [address] [place] [address] Dr. Tanner Madison Lymphocytes/100 WBC (Bld) 24.0 % Normal 20.5-60.0 [facility] Comment on above: Performed By: #### C BC #### [facility] [address] [place] [address] Dr. Tanner Madison MANUAL DIFF REQ NO Normal [facility] Comment on above: Performed By: #### C BC #### [facility] [address] [place] [address] Dr. Tanner Madison MCH (RBC) [Entitic mass] 31.0 pg Normal 26.7-34.0 [facility] Comment on above: Performed By: #### C BC #### [facility] [address] [place] [address] Dr. Tanner Madison MCHC (RBC) [Mass/Vol] 34.1 g/dL Normal 29.9-35.2 [facility] Comment on above: Performed By: #### C BC #### [facility] [address] [place] [address] Dr. Tanner Madison MCV (RBC) [Entitic vol] 91.1 fL Normal 81.0-99.0 [facility] Comment on above: Performed By: #### C BC #### [facility] [address] [place] [address] [address] Tanner Madison MONO # 0.5 103/ul Normal 0.3-0.8 [facility] Comment on above: Performed By: #### C BC #### [facility] [address] [place] [address] [address] Tanner Madison Monocytes/100 WBC (Bld) 8.3 % Normal 1.7-12.0 [facility] Comment on above: Performed By: #### C BC #### [facility] [address] [place] [address] [address] Tanner Madison NEUT # 3.6 103/ul Normal 1.4-6.5 [facility] Comment on above: Performed By: #### C BC #### [facility] [address] [place] [address] Dr. Tanner Madison Neutrophils/100 WBC (Bld) 65.8 % Normal 43.0-75.0 [facility] Comment on above: Performed By: #### C BC #### [facility] [address] [place] [address] Dr. Tanner Madison Platelet mean volume (Bld) [Entitic vol] 8.6 fL Critically low 9.5-13.5 [facility] Comment on above: Performed By: #### C BC #### [facility] [address] [place] [address] Dr. Tanner Madison PLT 234 103/ul Normal 150-450 [facility] Comment on above: Performed By: #### C BC #### [facility] [address] [place] [address] Dr. Tanner Madison RBC 3.48 106/ul Critically low 4.20-5.40 [facility] Comment on above: Performed By: #### C BC #### [facility] [address] [place] [address] [address] Tanner Madison WBC 5.4 103/ul Normal 4.0-11.0 [facility] Comment on above: Performed By: #### C BC #### [facility] [address] [place], [place] [address] Dr. Tanner Madison PROF CHEM 8 (BAS METB)on Anion gap [Moles/Vol] 12.7 mmol/L Normal [facility] Comment on above: Performed By: #### B MP ####[facility] [address] [place] [address]Dr. Tanner Madison Calcium [Mass/Vol] 9.2 mg/dL Normal 8.5-10.1 [facility] Comment on above: Performed By: #### B MP ####[facility] [address] [place] [address]Dr. Tanner Madison Chloride [Moles/Vol] 102 mmol/L Normal 98-107 [facility] Comment on above: Performed By: #### B MP ####[facility] [address] [place] [address]Dr. Tanner Madison CO2 [Moles/Vol] 30.4 mmol/L Normal 21.0-32.0 [facility] Comment on above: Performed By: #### B MP ####[facility] [address] [place] [address]Dr. Tanner Madison Creatinine [Mass/Vol] 1.07 mg/dL Critically high 0.55-1.02 [facility] Comment on above: Performed By: #### B MP ####[facility] [address] [place] [address]Dr. Tanner Madison EGFR-AF [place] ISLANDER >60 Normal >=60 [facility] Comment on above: Performed By: #### B MP ####[facility] [address] [place] [address]Dr. Tanner Madison EGFR-NON AF [place]LANDER 50 mL/min/1.73m2 Critically low >=60 [facility] Comment on above: Performed By: #### B MP ####[facility] [address] [place] [address]Dr. Tanner Madison Glucose [Mass/Vol] 99 mg/dL Normal 74-106 [facility] Comment on above: Performed By: #### B MP ####[facility] [address] [place], [place] [address]Cx. Tanner Madison Potassium [Moles/Vol] 4.1 mmol/L Normal 3.5-5.1 [facility] Comment on above: Performed By: #### B MP ####[facility] [address] [place], [place] [address]Mk. Tanner Madison Sodium [Moles/Vol] 141 mmol/L Normal 136-145 [facility] Comment on above: Performed By: #### B MP ####[facility] [address] [place] [address]Dr. Tanner Madison Urea nitrogen [Mass/Vol] 16.0 mg/dL Normal 7.0-18.0 [facility] Comment on above: Performed By: #### B MP ####[facility] [address] [place] [address]Dr. Tanner Madison Urea nitrogen/Creatinin e [Mass ratio] 15.0 mg/mg Normal [facility] Comment on above: Performed By: #### B MP ####[facility] [address] [place] [address]Dr. Tanner Los MACKEYon 10-15-2021 CNOV Office Visit (SPNMMN ) COURTNEY WHITE ([id number]) 1950 F Date Time Provider Department 10/15/21 2:00 PM [facility] we recorded the [...] short period (more content not included)... Normal [facility] XR SCOLIOSIS 2V PA STAND/LAT on 10-15-2021 [...] abnormality. IMPRESSION: Thoracolumbar scoliosis and degenerative changes. Identity Access Management Architect: PSCLanie Transcribe Date/Time: Oct 15 2021 2:52P Dictated by : CHETNA HERNANDEZ MD This examination was interpreted and the report reviewed and electronically signed by: CHETNA HERNANDEZ MD on Oct 15 2021 2:54PM EST [id number] Normal [facility] XR SCOLIOSIS PA STAND/LAT 2V on 10-15-2021 [facility] 08-27-2021 L - -------- Specimen: [id number] Received: 08/27/21 Status: VINOD Albaradotung Num: [id number] Spec Type: Surgical Subm Dr: Will Ma MD Tissues: A Gastric Biopsy (GASTRIC BXS) Procedures: HE Stain/2, Gross/Micro L4 -------- Patient Age/Sex Location Account Attending Physician -------- Christopher,Courtney Stephanie 70/F [id number] Will Ma MD -------- SPEC NUM: [id number] RECD: 08/27/21 STATUS: VINOD GARCIA NUM: [id number] JHONNY: 08/27/[address] [facility] [address]: Will Ma MD ENTERED: 08/27/[address] [facility] [address]: SON TYPE: Surgical DEPT: S ORDERED: [...] microscopic findings support the above pathologic diagnosis. [id number] -------- -------- Specimen: [id number] Received: 08/27/21 Status: VINOD Garcia Num: [id number] Spec Type: Surgical Subm Dr: Will Ma MD Tissues: A Gastric Biopsy (GASTRIC BXS) Procedures: HE Stain/2, Gross/Micro L4 -------- Patient: Courtney White [id number] (Continued) -------- Signed (signature on file) Nisreen Marquez MD 08/31/21 [id number] Normal [facility] SARS-CoV-2 (COVID-19) RNA JEFFRY+probe Ql (Unsp spec) Negative Normal Negative [facility] Comment on above: Order Comment: Healt hcare Worker?: N Result Comment: Testing for SARS-CoV-2 by RT-PCR This test was developed and its performance characteristics determined by [facility] [facility] [employer] and validated at the [facility]. This test has not been FDA cleared [...] is terminated or revoked sooner. PERFORMED BY: [place] [address] PATHOLOGIST [employer] NISREEN MARQUEZ M.D. Performed By: #### C OVID 19 [facility] #### [place] [id number] [facility] [[email or web address]] Vital Signs Date Time Vital Sign Value Performing Clinician Facility 09-26-2022 10:30-0400 Body height 160.02 cm [employer] Other [facility] Other 09-26-2022 10:30-0400 Body mass index (BMI) [Ratio] 19.31 kg/m2 [facility] [employer] Other [facility] Other 09-26-2022 10:30-0400 Body weight 49.44 kg Cyren [employer] Other [facility] Other 09-26-2022 10:30-0400 Diastolic blood pressure 75 mm[Hg] [employer] Other [facility] Other 09-26-2022 10:30-0400 Respiratory rate 12 /min [employer] Other [facility] Other 09-26-2022 10:30-0400 Systolic blood pressure 166 mm[Hg] [employer] Other [facility] Other 02-01-2022 10:22-0500 Body height 160 cm Wellington Hong MD Work Phone: [facility] 02-01-2022 10:22-0500 Body weight 49.9 kg Wellington Hong MD Work Phone: [facility] 02-01-2022 10:22-0500 Diastolic blood pressure 76 mm[Hg] Wellington Hong MD Work Phone: [facility] 02-01-2022 10:22-0500 Heart rate 71 /min Wellington Hong MD Work Phone: [facility] 02-01-2022 10:22-0500 Respiratory rate 14 /min Wellington Hong MD Work Phone: [facility] 02-01-2022 10:22-0500 SaO2% (BldA) [Mass fraction] 98 % Wellington Hong MD Work Phone: [facility] 02-01-2022 10:22-0500 Systolic blood pressure 168 mm[Hg] Wellington Hong MD Work Phone: [facility] Encounters Encounter Date Encounter Type Care Provider Facility Start: 03-27-2023 End: 03-27-2023 ambulatory Kar Mota Other [facility] Other Start: 03-27-2023 Office outpatient vi sit 15 minutes Kar Mota [facility] Start: 03-27-2023 Telephone encounter Kar Ball [facility] Start: 01-23-2023 End: 01-23-2023 ambulatory Kar Ball Other [facility] Other Start: 01-23-2023 Telephone encounter Kar Ball [facility] Start: 11-29-2022 End: 11-29-2022 ambulatory Kar Ball Other [facility] Other Start: 11-29-2022 Telephone encounter Kar Ball [facility] Start: 11-28-2022 End: 11-28-2022 ambulatory Kar Mota Other [facility] Other Start: 11-28-2022 Nursing evaluation o f patient and report Kar Mota [facility] Start: 11-28-2022 Telephone encounter Kar NAILS [facility] Start: 10-04-2022 End: 10-04-2022 ambulatory Kar Mota Other [facility] Other Start: 10-04-2022 Telephone encounter Kar NAILS [facility] Start: 09-26-2022 End: 09-26-2022 ambulatory Kar Mota Other [facility] Other Start: 09-26-2022 Office outpatient vi sit 15 minutes Kar Mota [facility] Start: 07-14-[address] MANJULA MARCIAL Facil ity:[facility] Start: 05-02-2022 End: 05-03-[address] MANJULA MARCIAL Facility:[facility] Start: 03-08-2022 End: 03-09-[address] MANJULA MARCIAL Facility:[facility] Start: 03-02-2022 End: 03-03-[address] MANJULA MARCIAL Facility:[facility] Start: 02-15-2022 Adult health examination Chris Mota Other [facility] Other Start: 02-01-2022 End: 02-01-2022 ambulatory ANCELMO SANDOVAL Facility:[facility] Start: 02-01-2022 End: 02-01-2022 Patient encounter procedure Wellington Hong MD Work Phone: [facility] [place] Comment on above: Encounter for screen ing [...] Start: 10-15-2021 End: 10-15-2021 ambulatory ANCELMO SANDOVAL Facility:[facility] Start: 10-15-2021 End: 10-15-2021 Subsequent hospital visit [...] of colon Kar Mota Other Depression screening Aguilar Mota Other Screening for malign ant neoplasm of breast Kar Mota Other Plan of Treatment Date Care Activity Detail Author Start: 02-27-2022 ADVANCE DIRECTIVE DISCUSSION ADVANCE DIRECTIVE DISCUSSION [facility] Start: 02-27-2022 DEPRESSION ASSESSMENT DEPRESSION ASS ESSMENT [facility] Start: 10-28-2021 Influenza vaccination INFLUENZA (#1) [facility] Start: 07-25-2021 COVID-19 VACCINE (5 - Booster for Pfizer series) COVID-19 VACCINE (5 - Booster for Pfizer series) [facility] Start: 02-27-2021 ADVANCE DIRECTIVE DISCUSSION ADVANCE DIRECTIVE DISCUSSION [facility] Start: 02-27-2021 DEPRESSION ASSESSMENT DEPRESSION ASS ESSMENT [facility] Start: 2013 BONE DENSITY BONE DENSITY [facility] Start: 2013 PNEUMOCOCCAL: 65+ (1 - PCV) PNEUMOCOCCAL: 65+ (1 - PCV) [facility] Start: 1998 SHINGRIX VACCINE (1 of 2) SHINGRIX VACCINE (1 of 2) [facility] Start: 1993 COLOGUARD (FIT-DNA) COLOGUARD (FIT-D NA) [facility] Start: 1993 Colonoscopy COLONOSCOPY [facility] Start: 1993 COLORECTAL CANCER SCREENING COLORECTAL CANCER SCREENING [facility] Start: [address] COLONOGRAPHY [facility] Start: 1993 DIABETES SCREEN DIABETES SCREEN [facility] Start: 1993 FECAL OCCULT BLOOD FECAL OCCULT BLOO D [facility] Start: 1993 LIPID SCREEN LIPID SCREEN [facility] Start: 1993 SIGMOIDOSCOPY SIGMOIDOSCOPY [facility] Start: 1988 Mammography MAMMOGRAM [facility] Start: 11-13-1967 Urine microalbumin profile DTAP,TDAP,TD (1 - Tdap) [facility] Start: 1966 HEPATITIS C SCREENING HEPATITIS C SC REENING [facility] Start: 1960 Adult depression screening assessment DEPRESSION SCREENING [facility] End: 03-03-2023 DXA-AXIAL SKELETON DXA-AXIAL SKELETON Radiology Routine Encounter for screening for osteoporosis 1 Occurrences starting 02/01/2022 until 03/03/2023 [facility] Work Phone: Comment on above: 1 Occurrences starti ng 02/01/2022 until 03/03/2023 [place] [facility] Immunizations Immunization Date Immunization Notes Care Provider Cecy brown 11-28-2022 influenza, high dose seasonal, preservative-free Kar Mota Other [facility] Other 11-26-2021 influenza virus vaccine, split virus (incl. purified surface antigen) Kar Mota Other [facility] Other 05-30-2021 COVID-19 Vaccine Pfi zer - Documentation Purposes Only Kar Mota Other [facility] Other 12-04-2020 influenza virus vaccine, split virus (incl. purified surface antigen) Kar Mota Other [facility] Other 11-22-2020 COVID-19 Vaccine Pfi zer - Documentation Purposes Only Kar Mota Other [facility] Other 04-18-2020 COVID-19 Vaccine Pfi zer - Documentation Purposes Only Kar Mota Other [facility] Other 03-28-2020 COVID-19 Vaccine Moderna - Documentation Purposes Only Kar Mota Other [facility] Other 11-07-2019 influenza virus vaccine, split virus (incl. purified surface antigen) Kar Mota Other [facility] Other 11-26-2018 influenza virus vaccine, split virus (incl. purified surface antigen) Kar Mota Other [facility] Other 12-07-2017 influenza virus vaccine, split virus (incl. purified surface antigen) Kar Mota Other [facility] Other 12-19-2016 influenza virus vaccine, split virus (incl. purified surface antigen) Kar Mota Other [facility] Other 12-01-2015 influenza virus vaccine, split virus (incl. purified surface antigen) Kar Mota Other [facility] Other 05-15-2015 pneumococcal conjuga te vaccine, 13 valent Kar Mota Other [facility] Other 12-10-2014 influenza virus vaccine, split virus (incl. purified surface antigen) Kar Mota Other [facility] Other 12-18-2013 tetanus and diphther ia toxoids, adsorbed, preservative free, for adult use (5 Lf of tetanus toxoid and 2 Lf of diphtheria toxoid) Kar Mota Other [facility] Other 2013 pneumococcal polysaccharide vaccine, 23 valent Kar Mota Other [facility] Other 12-17-2012 tetanus and diphther ia toxoids, adsorbed, preservative free, for adult use (5 Lf of tetanus toxoid and 2 Lf of diphtheria toxoid) Kar Mota Other [facility] Other Payers Date Payer Category Payer Medicare HUMANA MEDICARE HU[employer]NA MEDICARE PPO [id number] 2017-Present [phone] [id number] [place] [address] PPO [id number] 1961 Medicare [id number] 1950 Unknown [id number] 1948 Unknown [id number] 1948 Unknown [id number] 1948 Unknown [id number] 1948 Unknown [id number] 1948 Unknown [id number] 1948 Unknown [id number] [id number] 1948 Unknown [id number] [id number] 1948 Unknown [id number] [id number] 1948 Unknown [id number] 1948 Unknown [id number] Social History Date Type Detail Facility Start: 10-15-2021 Tobacco smoking status NHIS Ex-smoker [facility] History of tobacco use Current smoker [facility] History of tobacco use Cigarette Smoker [facility] Start: 10-15-2021 Tobacco use and exposure Smokeless tobacco non-user [facility] Start: 10-15-2021 End: 02-01-2022 Alcohol intake Lifetime non-drinker (finding) [facility] Start: 1950 Sex Assigned At Not on file C [facility] Start: 10-05-2021 End: 10-15-2021 Exposure to SARS-CoV-2 (event) Not sure [facility] Sex Assigned At Sex Assigned At Bir th [facility] Other Clinical Notes 10-15-2021 to 03-27-2023 Note [...] increased frequency > 3/24 hours and watery [facility] Other 11-27-2023 Evaluation note* Encounter Date Diagnosis Assessment Notes Treatment Notes Treatment Clinical Notes Dec, Pain in thoracic spine (ICD-10 - M54.6) [facility] Other 10-02-2023 Evaluation note* Encounter Date Diagnosis Assessment Notes Treatment Notes Treatment Clinical Notes Nov, Lumbar spondylosis (ICD-10 - M47.816) [facility] Other 07-31-2023 Evaluation note* Encounter Date Diagnosis [...] but may cause increased bloating. [employer] Other 07-31-2023 Evaluation note* Encounter Date Diagnosis [...] but may cause increased bloating. [facility] [employer] Other 12-06-2022 NoteHNO ID: [id number] Author: Wellington Hong MD Service: ? Author [...] information obtained and documented by the physician floor covering printer assistant. I examined the patient and evaluated [...] when sitting. No partha (more content not included)...[facility]12-06-2022 Instructions* Patient Instructions* Ancelmo Sandoval PA-C - [...] your usual activities immediately. [facility] History of Present illness Narrative* Wellington [...] information obtained and documented by the physician floor covering printer assistant. I examined the patient and evaluated [...] the presence of Wellington Hong MD. Electronically Signed:Melba Jose musa, January 31, 2022 9:13 PM I agree with the Chief Complaint, ROS, and Past Histories independently gathered by the clinical call center support consultant and the remaining scribed note accurately describes my personal service to the patient. Wellington Hong MD [facility] NoteCONSULTATION CONSULTATION DATE: 01/18/2022 CHIEF COMPLAINT: [...] appointment to see a spinal surgeon at [facility] in the near future. PHYSICAL EXAM: [...] We shall await the patient's evaluation with [facility]. Subsequent to that, we will make [...] this in February, given her 's illness.[facility] [id number] Note CONSULTATION PROCEDURE DATE: 12/21/2021 CHIEF COMPLAINT: [...] has responded well to this treatment. [facility] [id number] NoteCONSULTATION CONSULTATION DATE: 11/30/2021 CHIEF COMPLAINT: Low [...] annually. The patient has been seen by [facility] with regards to the possibility of [...] was encouraged to maintain the communication with [facility] to see whether other options are available. We will repeat the testosterone cypionate on her return visit. The patient understands and would like to proceed. CC: Manjula Marcial M.D.[facility] [id number] NoteCONSULTATION PROCEDURE DATE: 11/23/2021 PREOPERATIVE DIAGNOSIS: Lumbar [...] try to attain a neutral posture laterally.[facility] [id number] NoteCONSULTATION CONSULTATION DATE: 11/23/2021 CHIEF COMPLAINT: Left leg pain, low back pain. HISTORY OF PRESENT ILLNESS: This is a very pleasant, 71-year-old female who is known to the [facility]. The patient has an MRI of her lumbar spine, CT of the thoracic and CT of the lumbar spine. The patient has severe rotoscoliosis. The patient was seen at the [facility]. The patient states she is functioning [...] like to proceed. CC: Manjula Marcial M.D.[facility] [id number] Miscellaneous Notes* Telephone Encounter - Cesilia Adler - 11/16/2021 1:46 PM EDT Received the following record(s) via fax. -MRI tspine wo(report) Date 11/03/21 Record(s) scanned into pt's chart. Cesilia Adler Images requested documented in this encounterC[facility]2022 NotePROCEDURE: CT TSPINE WO CON, CT [...] Electronically authenticated by: JEFF FREGOSO Date: 2021-11-03 18:57[facility]09-07-2022 NotePROCEDURE: CT TSPINE WO CON, CT LSPINE [...] Electronically authenticated by: JEFF FREGOSO Date: 2021-11-03 18:57[facility]08-19-2022 NoteHNO ID: [id number] Author: Ancelmo Sandoval PA-C Service: ? Author Type: Physician Bridge Toll Collector Type: Progress Notes Filed: 10/18/2021 8:52 AM [...] neuromuscular referral to (more content not included)... [facility] note* Diagnosis Scoliosis of thoracolumbar spine, unspecified scoliosis type documented in this encounter [facility] note* Diagnosis Encounter for screening for osteoporosis- Primary Special screening for osteoporosis documented in this encounter [facility] noteNo InformationN[facility]Lif[facility] Other History general Narrative - Reported* Type [...] Colonoscopy 2021 Hospitalization History SEE SURGICAL HX [facility] Whi Other Reason for referral (narrative)* Diagnostic Procedure Only (Routine) - Closed Specialty Diagnoses / Procedures Referred By Mouna mclean Referred To Contact XR IMAGING Diagnoses Scoliosis of thoracolumbar spine, unspecified scoliosis type Procedures XR SCOLIOSIS PA STAND/LAT 2V RADEX ENTIR THRC LMBR CRV SAC SPI W/SKULL 2/3 Ancelmo Wild PA-C [id number] [place] [address] Xr Imaging Referral ID Status Reason Start Date Expiration Date V isits Requested Visits Authorized [id number] Closed Auto-Generate d Referral 10/15/2021 11/14/2022 1 1 [facility] for visit Narrative* Diagnostic Procedure Only (Routine) - Closed Specialty Diagnoses / Procedures Referred By Mouna mclean Referred To Contact XR IMAGING Diagnoses Scoliosis of thoracolumbar spine, unspecified scoliosis type Procedures XR SCOLIOSIS PA STAND/LAT 2V RADEX ENTIR THRC LMBR CRV SAC SPI W/SKULL 2/3 VW Ancelmo Sandoval PA-C [address] [place] [address] Xr Imaging Referral ID Status Reason Start Date Expiration Date V isits Requested Visits Authorized [id number] Closed Auto-Generate d Referral 10/15/2021 11/14/2022 1 1 [facility] Summary Purpose Family History No Family History Records FoundNo Family History Records FoundNo Family History Records Found Advance Directives No Advanced Directives Records FoundNo Advanced Directives Records FoundNo Advanced Directives Records Found Additional Source Comments INFORMATION SOURCE (unrecogn ized section and content) DATE CREATED AUTHOR 09/02/2021 [facility] DATE CREATED AUTHOR AUTHOR'S ORGANIZ ATION 03/07/2022 [facility] DATE CREATED AUTHOR AUTHOR'S ORGANIZ ATION 07/13/2022 [facility] Source Comments (unrecognize d section and content) In the event this informatio n is protected by the Federal Confidentiality of Alcohol and Drug Abuse Patient Records regulations: The Federal rules restrict any use of the information to criminally investigate or prosecute any alcohol or drug abuse patient.[facility] Hospital[facility] the event this information is protected by the Federal Confidentiality of Alcohol and Drug Abuse Patient Records regulations: The Federal rules restrict any use of the information to criminally investigate or prosecute any alcohol or drug abuse patient.[facility] HospitalIn the event this information is protected by the Federal Confidentiality of Alcohol and Drug Abuse Patient Records regulations: The Federal rules restrict any use of the information to criminally investigate or prosecute any alcohol or drug abuse patient.[facility] Reason for Visit (unrecogniz ed section [...] BE BASED ON THE PRIMARY CLINICAL RECORDS. [facility] [employer] [facility] provides no warranty or guarantee of the accuracy or completeness of information in this document.
[2023-07-18 07:53] VITALS: BP 175/77; PULSE 78; TEMP 36.3; O2SAT 98
[2023-07-18 08:49] VITALS: BP 167/79; PULSE 78; O2SAT 96
[2023-07-18 08:50] VITALS: BP 176/83; PULSE 78; O2SAT 99
[2023-07-18] MEDS: BUPIVACAINE HCL 0.25% PF 25 MG/10 ML VIAL 4 ML INJ (08:53)
--- NOTE | 2023-07-18 09:12 | W.PM.PROCNOT ---
Date of procedure: 07/18/23 Pre-op diagnosis: Lumbar spondylosis Post-op diagnosis: same as pre-op Procedure: Bilateral Lumbar 4/5, 5/sacral 1 medial branch block Under fluoroscopic guidance Solution injected: 2millilitersMarcaine 0.25% Anesthesia :none Immediate complications none Time out process compliant After informed consent obtained from the patient placed in the Prone proposition . area was prepped and draped in a sterile fashion using Cloraprep .25 gauge spinal needle inserted over each of the above mentioned target areas . Cotulla were directed towards the target under fluoroscopic guidance . after encountering each of the targets , no indication of intravascular intraneuronal or intrathecal needle tip placement. Then 0 .5 to 1 Milliliter was injected at each level. Cotulla removed postoperatively. patient transferred to recovery in stable condition to be discharged home after meeting criteria Anesthesia: Local Surgeon: Maine Escobar Condition: stable
== END 2023-07-18 08:57 | disposition home or self-care (01) ==
LOC: SURGOUT 07:29
PROVIDERS: PCP Internal Medicine; Visit Provider Anesthesiology Pain Medicine
DX: M47.816 Spondylosis without myelopathy or radiculopathy, lumbar region (principal)
CPT/HCPCS: 64493; 64494

== ENCOUNTER 2023-07-27 09:50 | Outpatient (OUT) | payer MEDICARE, SELFPAY ==
--- NOTE | 2023-07-27 10:06 | P.CN_ITS ---
Consult Note: HPI Data of Consult Patient: known to practice within the last 3 years Requesting Physician: Hiwot Irving NP Primary Care Provider: Kar Mota, DO Consult Narrative Reason for consult: f/u Narrative: Courtney dougherty pleasant 71 year old female presents for evaluation of chronic low back pain, today 04/08, increasing to 08/06. Patient feels current medication regimen is beneficial, most days pain mild to moderate, improved with proper posture and rest but has noticed increase in muscle spasms. 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 Recent bilateral L4-5 L5-S1 MBB #2 provided >80% improvement immediately following and hours after. cc:: CC: Hiwot Irving NP Review of Systems ROS Status of ROS 10 or more systems reviewed and unremark able except as noted in history and below Musculoskeletal Reports: back pain PFSH PFSH Medical History Rheumatoid arthritis ?M06.9 - Rheumatoid arthritis, unspecified (ICD-10) Low back pain ?M54.50 - Low back pain, unspecified (ICD-10) Family history of psychiatric condition ?Z81.8 - Family history of other mental and behavioral disorders (ICD-10) Former smoker ?Z87.891 - Personal history of nicotine dependence (ICD-10) Surgical History History of dilatation and curettage ?Z98.890 - Other specified postprocedural states (ICD-10) Meds Home Medications and Allergies Home Medications ?Medication ?Instructions ?Recorded ?Confirmed ?Type acetaminophen 325 mg tablet (Aphen) 325 mg PO Q6H PRN pain 08/09/22 07/18/23 History ywgujha-A5-yvv-L0-F98-clexkdqapwor tab PO .QD 08/09/22 History 500 mg-200 unit-50 mg-1.2 mg tablet nabumetone 750 mg tablet 750 mg PO BID 08/09/22 07/18/23 History vitamins A,C,W-gumm-vkamah 2,148 2 tab PO BID 08/09/22 07/18/23 History mcg-113 mg-45 mg-17.4 mg tablet (Eye Multivitamin) zoledronic acid 5 mg/100 mL in ea IV .YEARLY 08/09/22 History mannitol 5 %-water intravenous piggybck (Reclast) gabapentin 08/16/22 History baclofen 10 mg tablet 10 mg PO DAILY #30 tabs 11/02/22 07/18/23 Rx Allergies Allergy/AdvReac Type Severity Reaction Status Date / Time amoxicillin Allergy Verified 07/18/23 07:59 nitrofurantoin Allergy Verified 07/18/23 07:59 [From Macrobid] Sulfa (Sulfonamide Allergy Verified 07/18/23 07:59 Antibiotics) Exam Constitutional Documenting provider has reviewed patient's vital signs: yes Common normals: no apparent distress, oriented x3, healthy appearing, alert and well nourished General appearance: cooperative HENMT Common normals: normocephalic, hearing grossly normal bilaterally and moist oral mucous membranes Head and scalp: normocephalic Eye Common normals: PERRL Pupil: PERRL Neck & C-Spine Common normals: full ROM General: normal visual inspection Chest Common normals: inspection of chest normal Respiratory Common normals: normal respiratory effort, no retractions and no use of accessory muscles Back & Pelvis Common normals: no thoracic nor lumbar tenderness Thoracic spine/upper back: thoracic ROM normal Lumbar spine/lower back: lumbar ROM normal, pain with ROM, lumbar spinal tenderness, lumbar scoliosis present and straight leg raise negative bilaterally Other: scoliosis noted on physical exam tenderness over bilateral L4-5 L5-S1 facet joints axial low back pain with positive facet loading Extremity Common normals: normal to inspection, full ROM, normal capillary refill and no joint enlargement Neuro Common normals: oriented x3, CN's II-XII intact bilaterally, moves all extr emities, no focal motor deficits, no sensory deficits noted and deep tendon reflexes 2+ bilaterally Sensorium/orientation: alert Gait (neuro): assistive device used cane Motor exam: strength 5/5 throughout and no movement abnormalities noted Psych Common normals: mental status grossly normal, thought process normal, cooperative, affect normal, speech normal and activity/motor behavior normal Speech: normal speech Thought process: normal thought process Results Additional Findings Additional findings: If on a controlled substance or opioids, I have checked an [place] report on this patient and there are no aberrancies noted in the prescribing history.??If on a controlled substance or opioid a drug screen was completed and reviewed within the last year, and if there has not been a drug screen completed we ordered one today to monitor higher risk, state monitored pain medication use. As part of providing excellent, safe, comprehensive care, the following was completed at our patient's visit: 1. A medication reconciliation and review to ensure accurate knowledge of current/active medications, including asking our patients to inform us about any dtwb-wvx-wlmymxn medications or herbal remedies/nutritional supplements/alternative remedies. 2. A review to specifically ensure our patients have had annual screening for screening for depression, screening for tobacco use, and screening for unhealthy alcohol use. For concerning screenings had a discussion with the patient, provided patient education, and recommended follow-up with primary care provider when appropriate. If patient noted with a risk of falling, they received education on strength, gait, and balance training to prevent future risk of falling. Assessment and Plan Assessment and Plan (1) Lumbar spondylosis: (2) Dystonia, unspecified: (3) Myofascial pain: (4) Scoliosis: Plan right then left L4-5 L5-S1 facet medial branch RFA under fluoroscopy without sedation continue current medication regimen as tolerated f/u 1 month after completion of RFAs
== END 2023-07-27 09:51 | disposition home or self-care (01) ==
LOC: PM 09:51
PROVIDERS: PCP Internal Medicine; Visit Provider Nurse Practitioner
DX: M47.816 Spondylosis without myelopathy or radiculopathy, lumbar region (principal); G24.9 Dystonia, unspecified; M79.18 Myalgia, other site; M41.9 Scoliosis, unspecified
CPT/HCPCS: G0463

== ENCOUNTER 2023-08-08 11:00 | Outpatient (OUT) | payer MEDICARE, SELFPAY ==
--- NOTE | 2023-08-08 11:03 | MM_ITS ---
Patient Name: KIMBERLY LUJAN MR#: [id number] : 1950 Exam Date: 08/08/2023 Ordering Doctor: DR Kar Mota D.O. RADIOLOGY REPORT PROCEDURE: MM TOMOSYNTHESIS SCREENING BI COMPARISON: MG MAMM SCREEN 3D VIJAYA CAD, 03/08/2022. MG MAMM SCREEN 3D VIJAYA CAD, 12/07/2020. INDICATIONS: Screening Calculator Name NCI Breast Cancer Risk Assessment Tool 5 Year Breast Cancer Risk 2.30% Lifetime Breast Cancer Risk 5.30% Personal Breast Cancer No Personal Ovarian Cancer No Treatments None Family Cancers Aunt-paternal with breast cancer at age 50. LOCATION: [facility] BREAST COMPOSITION: The breasts are extremely dense, which lowers the sensitivity of mammography. FINDINGS: DIAGNOSTIC CATEGORY 0--INCOMPLETE: NEED ADDITIONAL IMAGING EVALUATION. Scattered benign-appearing nodules are present. Scattered benign-appearing calcifications are present. Scattered benign-appearing lymph nodes are present. RIGHT BREAST: No significant suspicious finding. LEFT BREAST: Stable micro clip marker however the associated nodule has increased in size from the prior exam now measuring 1.9 x 1.7 cm on MLO projection. Further evaluation with spot compression view and ultrasound is recommended RECOMMENDATIONS: ADDITIONAL MAMMOGRAPHIC VIEWS REQUIRED: LEFT BREAST - spot compression ULTRASOUND: LEFT BREAST PLEASE NOTE: A NORMAL MAMMOGRAM DOES NOT EXCLUDE THE POSSIBILITY OF BREAST CANCER. A CLINICALLY SUSPICIOUS PALPABLE LUMP SHOULD BE BIOPSIED. Dictated by: Balta Nowak MD on 08/08/2023 at 11:42 Approved by: Balta Nowak MD on 08/08/2023 at 11:45
== END 2023-08-08 11:01 | disposition home or self-care (01) ==
LOC: MAMMO 11:00
PROVIDERS: PCP Internal Medicine; Visit Provider Internal Medicine
DX: Z12.31 Encounter for screening mammogram for malignant neoplasm of breast (principal); Z80.3 Family history of malignant neoplasm of breast; R92.8 Other abnormal and inconclusive findings on diagnostic imaging of breast
CPT/HCPCS: 77063; 77067

== ENCOUNTER 2023-08-15 08:30 | Day surgery (SDC) | payer MEDICARE, SELFPAY ==
[2023-08-15 09:02] VITALS: BP 189/86; PULSE 78; TEMP 36.6; O2SAT 98
[2023-08-15 09:52] VITALS: BP 210/89; PULSE 84; O2SAT 99
[2023-08-15 09:54] VITALS: BP 191/86; PULSE 89; O2SAT 99
[2023-08-15] MEDS: BUPIVACAINE HCL 0.25% PF 25 MG/10 ML VIAL INJ (09:55)
[2023-08-15] MEDS: METHYLPREDNISOLONE ACETATE 40 MG/ML VIAL INJ (09:55)
[2023-08-15] MEDS: LIDOCAINE HCL 2% 400 MG/20 ML MDV 15 ML INJ (09:56)
--- NOTE | 2023-08-15 10:34 | W.PM.PROCNOT ---
Date of procedure: 08/15/23 Pre-op diagnosis: Lumbar spondylosis Post-op diagnosis: same as pre-op Procedure: Right Lumbar 4/5, 5/Sacral 1 Radiofrequency ablation Under fluoroscopic guidance Rhizotomy was created using radio frequency ablation at 80?C for 90 seconds 1 to 2 lesions created at each site. Post lesioning injection of 2 mL each of 0.25% Marcaine and 2% lidocaine with Depo-Medrol 40mg. 0.5 to 1 mL injected at each site IV in place no If Intravenous fluids: NS at KVO Anesthesia local 2% lidocaine for Anesthesia Other: local Timeout process compliant After informed consent obtained.Patient brought to the procedure room placed in the prone position skin overlying the area was prepped and draped in a sterile fashion using betadine. 25 gauge needle was used to create a skin wheal over each of the targeted areas utilizing 2% lidocaine. A rhizotomy needle with a 10 mm active tip was inserted over each of the anesthetized areas and directed towards each of the medial branches accomplished under fluoroscopic guidance. after encountering the same we had positive sensory stimulation, negative motor stimulation was noted. lesions were then created. Post lesioning, steroid solution was injected needles removed. Patient was transferred to recovery room in stable condition to be discharged home after meeting criteria. Anesthesia: Local Surgeon: Maine Escobar Condition: stable
== END 2023-08-15 10:12 | disposition home or self-care (01) ==
LOC: SURGOUT 08:31
PROVIDERS: PCP Internal Medicine; Visit Provider Anesthesiology Pain Medicine
DX: M47.816 Spondylosis without myelopathy or radiculopathy, lumbar region (principal)
CPT/HCPCS: 64635; 64636; J0665; J1010

== ENCOUNTER 2023-08-21 13:51 | Outpatient (OUT) | payer MEDICARE, SELFPAY ==
--- NOTE | 2023-08-21 | MM_ITS ---
Patient Name: KIMBERLY LUJAN MR#: [id number] : 1950 Exam Date: 08/21/2023 Ordering Doctor: DR Kar Mota D.O. RADIOLOGY REPORT PROCEDURE: MM DIAGNOSTIC MAMMO UNILAT LT ULTRASOUND LEFT BREAST COMPARISON: MG MAMM SCREEN 3D VIJAYA CAD, 03/08/2022. US BREAST LT LIMITED, 08/21/2023. MM TOMOSYNTHESIS SCREENING BI, 08/08/2023. INDICATIONS: Abnormal mammogram R92.8 Calculator Name NCI Breast Cancer Risk Assessment Tool 5 Year Breast Cancer Risk 2.30% Lifetime Breast Cancer Risk 5.30% Personal Breast Cancer No Personal Ovarian Cancer No Treatments None Family Cancers Aunt-paternal with breast cancer at age 50. LOCATION: [facility] BREAST COMPOSITION: The breasts are extremely dense, which lowers the sensitivity of mammography. FINDINGS: DIAGNOSTIC CATEGORY 2--BENIGN FINDING. NO CHANGE FROM COMPARISON. Spot compression images demonstrate a persistent 1.6 x 1.2 cm well-circumscribed nodule with a micro clip at the margin. This lesion is seen on both the CC and MLO projections. Ultrasound demonstrates at the 2 o'clock position a 1.5 x 1.5 x 0.7 cm oval well-circumscribed hypoechogenic mass with internal blood flow, slightly hypo vascular compared to the surrounding soft tissues. The micro clip marker is noted adjacent to this mass. The ultrasound lesion and mammographic lesion are congruent. This lesion has previously been biopsied and was found to be nonmalignant. RECOMMENDATIONS: ROUTINE MAMMOGRAM AND CLINICAL EVALUATION IN 12 MONTHS. PLEASE NOTE: A NORMAL MAMMOGRAM DOES NOT EXCLUDE THE POSSIBILITY OF BREAST CANCER. A CLINICALLY SUSPICIOUS PALPABLE LUMP SHOULD BE BIOPSIED. Dictated by: Balta Nowak MD on 08/21/2023 at 15:31 Approved by: Balta Nowak MD on 08/21/2023 at 15:35
== END 2023-08-21 13:52 | disposition home or self-care (01) ==
LOC: MAMMO 13:51
PROVIDERS: PCP Internal Medicine; Visit Provider Internal Medicine
DX: R92.8 Other abnormal and inconclusive findings on diagnostic imaging of breast (principal); Z80.3 Family history of malignant neoplasm of breast
CPT/HCPCS: 76642; 77065

== ENCOUNTER 2023-09-12 10:32 | Day surgery (SDC) | payer MEDICARE, SELFPAY ==
--- OUTSIDE RECORDS SUMMARY | 2023-09-12 10:44 | XMS_ITS | CCD ---
Author Organization 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 Name Role Phone Unavailable Primary Care Provider [...] Hart Primary Care Unavailable HARRIS ., DR DCU Smith Consulting Unavailable HARRIS ., DR DUC Smith Attending Unavailable HARRIS ., DR DUC Smith Admitting Unavailable MARCIAL, DR MANJULA Hart Primary Care Unavailable CHERY ., MARTINEZ Attending Unavailable HALLORNA ., MARTINEZ Admitting Unavailable AGGIE, DR MANJULA Hart Primary Care Unavailable HARRIS ., DR DUC Smith Consulting Unavailable HARRIS ., DR DUC Smith Attending Unavailable HARRIS ., DR DUC Smith Admitting Unavailable HARRIS ., DR DUC Smith Consulting Unavailable HARRIS ., DR DUC Smith Attending Unavailable HARRIS ., DR DUC Smith Admitting Unavailable AGGIE, DR MANJULA Hart Primary Care Unavailable BALL, DR BURNETT Admitting Unavailable BALL, DR BURNETT Primary Care Unavailable BALL, DR BURNETT Consulting Unavailable BALL, DR BURNETT Attending Unavailable BALL, DR BURNETT Primary Care Unavailable WEST, DR JEFF Choi Consulting Unavailable MISC, DR GALLEGOS Admitting Unavailable MISC, DR GALLEGOS Attending Unavailable MISC, DR GALLEGOS Consulting Unavailable ZIEBSTEVE, DR MARTA Tyler Consulting Unavailable BALL, DR [...] KIMBERLY ., DR DUC Smith Admitting Unavailable DR MANJULA MARCIAL Primary Care Unavailable DR MANJULA MARCIAL Consulting Unavailable KIMBERLY ., DR DUC Smith Consulting Unavailable Kar Mota Unavailable Allergies Allergy Classification Reported Allergen(s) Allergy Type Date of Onset Reaction(s) Facility (5 sources) Amoxicillin; Translations: [AMOXICILLIN] Drug Allergy 2 Anaphylaxis [facility] (14 sources) NITROFURANTOIN, MACROCRYSTALS / Nitrofurantoin, Monohydrate; Translations: [NITROFURANTOIN MONOHYD/M-CRYST] Drug Allergy 2 Anaphylaxis [facility] (15 sources) Sulfonamides (Antibiotic); Translations: [SULFA (SULFONAMIDE ANTIBIOTICS)] Drug Allergy 2 Anaphylaxis [facility] (1 source) Amoxicillin Drug Allergy 1 [facility] (2 sources) Nitrofurantoin Drug Allergy 3 [facility] (2 sources) Sulfonamides (Antibiotic) Drug allergy (disorder) 3 [facility] (10 sources) Amoxicillin-Pot Clavulanate Drug allergy 6 Unknown [employer] Other (1 source) Clavulanate Drug Allergy 4 Unknown Reaction [facility] (1 source) Nitrofurantoin Drug Allergy 4 Difficulty Breathing [facility] Medications Current Medications Medication Drug Class(es) Dates Sig (Normalized) Sig (Original) acetaminophen 500 mg oral tablet (1 source) Start: 08-27-2021 Acetaminophen (Acetaminophen Extra Strength) 500 mg Tablet Active 500 MG PO As Directed August 27, 2021 12:00am azithromycin 250 mg oral tablet (2 sources) Macrolide Antimicrobial Start: 03-27-2023 Azithromycin 250 MG as directed Orally daily for 5 days Feb, Active baclofen 10 mg oral tablet (14 sources) gamma-Aminobutyric Acid-ergic Agonist Start: 08-21-2018 take 10 mg by mouth once daily at bedtime Baclofen Active 10 MG PO Daily at bedtime August 27, 2021 12:00am Comment on above: Take 10 mg by mouth daily at bedtime. calcium carbonate 1500 mg / cholecalciferol 200 unt oral tablet (1 source) Vitamin D Start: 08-27-2021 take 1 tablet by mouth twice daily Calcium Carbonate-Vitamin D3 (Calcium + D) 600 mg-5 mcg (200 unit) Tablet Active 1 TAB PO Twice daily August 27, 2021 12:00am docusate sodium 50 mg / sennosides, intermediate 8.6 mg oral tablet (3 sources) Start: 12-26-2022 take 8.6-50 mg by mouth once daily in the evening as needed Senokot S 8.6-50 MG 1 tablet as needed Orally q evening for 30 days Nov, Active gabapentin 100 mg oral capsule (20 sources) Anti-epileptic Agent Start: 07-19-2023 End: 07-19-2023 take 200 mg by mouth twice daily Gabapentin Active 200 MG PO Twice daily 120 July 19, 2023 11:03am Start: 09-27-2021 take 2 capsules by m outh every twelve hours Gabapentin 100 MG 2 capsules Orally bid for 30 days Aug, Active Start: 08-27-2021 End: 07-19-2023 take 1 capsule by mouth twice daily as needed Gabapentin 100mg gabapentin 100mg, 2 (two) Capsule Capsule two times daily # 120, 01/14/2022, Ref. x5. Active oral two times daily for 0 Replaces previous prescription w/ intructions for tid *Pick strength-form from [employer] for eRX* Dec, Not-Taking/PRN Comment on above: Take 200 mg by mouth twice daily. nabumetone 750 mg oral tablet (15 sources) Nonsteroidal Anti-inflammatory Drug Start: 05-25-2023 take 750 mg by mouth twice daily Nabumetone Active 750 MG PO Twice daily 60 May 25, 2023 10:47pm Start: 08-27-2021 End: 05-25-2023 nabumetone (RELAFEN) 750 mg tablet Vit C,A-Lx-Gieno-Lutein-Zeaxan (Preservision Areds-2) 250-90-40-1 mg Capsule (1 source) Start: 08-27-2021 Vit C,B-Sv-Hjcts-Lutein-Zeaxan (Preservision Areds-2) 250-90-40-1 mg Capsule Active 1 TAB PO Twice daily August 27, 2021 12:00am 100 ml zoledronic acid 0.05 mg/ml injection (4 sources) Bisphospho ry Start: 08-27-2021 take 5 mg intravenou sly once Zoledronic Btpy-Kgoeqbnh-Qiyky (Reclast) 5 mg/100 mL Piggyback Active 5 MG IV Once August 27, 2021 12:00am zoledronic acid (RECLAST) 5 mg/100 mL pgbk PREMIX piggyback Inject 5 mg intravenously every year. 0 Active Comment on above: Inject 5 mg intraven ously every year. Completed/Discontinued Medications Medication Drug Class(es) Dates Sig (Normalized) Sig (Original) omeprazole 40 mg delayed release oral capsule (4 sources) Proton Pump Inhibitor Start: 08-27-2021 take 1 capsule by mouth twice daily omeprazole (PRILOSEC) 40 mg capsule TAKE 1 CAPSULE BY MOUTH 2 TIMES DAILY FOR 12 WEEKS 0 08/27/2021 Active Comment on above: TAKE 1 CAPSULE BY [facility] 2 TIMES DAILY FOR 12 WEEKS vit A/vit C/vit E/zinc/copper (PRESERVISION AREDS ORAL) (3 sources) vit A/vit C/vit E/zinc/copper (PRESERVISION AREDS ORAL) Take by mouth. 0 Active Comment on above: Take by mouth. Problems Active Problems Problem Classification Problem Date Documented Da te Episodic/Chronic Abdominal hernia (7 sources) Diaphragmatic hernia; Translations: [Diaphragmatic hernia without obstruction or gangrene] Episodic Abdominal pain (14 sources) Left lower quadrant pain; Translations: [Left lower quadrant pain] Onset: 7 Episodic Acute bronchitis (1 source) Acute bronchitis due to other specified organisms Episodic Anxiety disorders (9 sources) Generalized anxiety disorder; Translations: [Generalized anxiety disorder] 08-01-2023 Chronic Chronic kidney disease (2 sources) Chronic kidney disease; Translations: [Chronic kidney disease, unspecified] 08-03-2023 Chronic Conditions associated with dizziness or vertigo (14 sources) Benign paroxysmal positional vertigo; Translations: [Benign paroxysmal vertigo, unspecified ear] Onset: 4 Episodic Deficiency and other anemia (8 sources) Anemia; Translations: [Anemia, unspecified] 08-03-2023 Episodic Esophageal disorders (2 sources) Gastroesophageal reflux disease; Translations: [Gastro-esophageal reflux disease without esophagitis] 08-01-2023 Chronic Gastroduodenal ulcer (except hemorrhage) (7 sources) Gastric ulcer; Translations: [Gastric ulcer, unspecified as acute or chronic, without hemorrhage or perforation] Onset: 2 Chronic Headache; including migraine (1 source) Headache; including migraine; Translations: [Headache, unspecified] Onset: 6 Immunizations and screening for infectious disease (7 sources) Vaccination given; Translations: [Encounter for immunization] Episodic Malaise and fatigue (8 sources) Other fatigue; Translations: [Fatigue] Onset: 3 Episodic Menopausal disorders (7 sources) Menopause present; Translations: [Menopausal and female climacteric states] Chronic Nonmalignant breast conditions (7 sources) Fibrocystic disease of breast; Translations: [Diffuse cystic mastopathy of unspecified breast] Chronic Nutritional deficiencies (15 sources) Vitamin D deficiency, unspecified; Translations: [Vitamin D deficiency] Onset: 2 Chronic Osteoarthritis (7 sources) Osteoarthritis; Translations: [Polyosteoarthritis, unspecified] Chronic Osteoporosis (18 sources) Age-related osteoporosis without current pathological fracture; Translations: [Primary osteoporosis] Onset: 2 Chronic Other acquired deformities (1 source) Scoliosis deformity of spine; Translations: [Scoliosis, unspecified] Chronic Other acquired deformities (6 sources) Scoliosis, unspecified; Translations: [Scoliosis of thoracolumbar spine, unspecified scoliosis type] Onset: 2 Chronic Other acquired deformities (1 source) Other forms of scoliosis, lumbar region; Translations: [OTHER FORMS SCOLIOSIS LUMBAR REGION] Onset: 2 Chronic Other acquired deformities (20 sources) Acquired [...] [Thoracogenic scoliosis of thoracolumbar region] Chronic Other acquired deformities (2 sources) Other secondary scoliosis, site unspecified; 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] 08-01-2023 Chronic Other aftercare (2 sources) Other snf (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; Translations: [OTH CLIENT ENGAGEMENT MANAGER CURRENT DRUG THERAPY] Onset: 2 Episodic Other aftercare (6 sources) Long-term current use of drug therapy; Translations: [Other terminal press 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] Episodic Other bone disease and musculoskeletal deformities (7 sources) Bone density finding; Translations: [Other specified disorders of bone density and structure, unspecified site] Episodic Other circulatory disease (1 source) Elevated blood-pressure reading without diagnosis of hypertension; Translations: [Elevated blood-pressure reading, without diagnosis of hypertension] 08-03-2023 Episodic Other circulatory disease (1 source) Elevated blood-pressure reading, without diagnosis of hypertension; Translations: [Elevated blood pressure reading without diagnosis of hypertension] 08-03-2023 Episodic Other connective tissue disease (4 sources) Muscle wasting and atrophy, not elsewhere classified, unspecified site; Translations: [MUSCLE WASTING ATROPHY NEC UNS SITE] Onset: 3 Episodic Other gastrointestinal disorders (9 sources) Irritable [...] torsion dystonia; 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 Other hereditary and degenerative nervous system conditions (1 source) Dystonia, unspecified; Translations: [DYSTONIA UNSPECIFIED] Onset: 2 Chronic Other injuries and conditions due to [...] loss; Translations: [Abnormal weight loss] Episodic Other screening for suspected conditions (not mental disorders or infectious disease) (15 sources) Patient encounter status; Translations: [Encounter for screening for osteoporosis] Onset: 5 Episodic Other upper respiratory disease (7 sources) [...] region; Translations: [Lumbosacral spondylosis without myelopathy] Onset: 2 Chronic Spondylosis; intervertebral disc disorders; other back problems (18 sources) Sciatica; Translations: [Lumbago with sciatica, left side] Resolved: 2 Episodic Substance-related disorders (10 sources) Tobacco user; Translations: [Nicotine dependence, cigarettes, in remission] Chronic Unclassified (3 sources) LOW BACK PAIN, UNSPECIFIED; Translations: [LOW BACK PAIN, UNSPECIFIED] Onset: 2 Unclassified (1 source) Unspecified tinnitus; Translations: [Unspecified tinnitus] Onset: 8 Past or Other Problems Problem Classification Problem [...] Translations: [Unspecified tinnitus] Onset: 05-01-2017 Episodic Other upper respiratory infections (20 sources) [...] BASO # 0.0 103/ul Normal 0.0-0.1 [facility] Comment on above: Performed By: #### C BC ####[facility] [address] [place] [id number]. Tanner Madison Basophils/100 WBC (Bld) 0.7 % Normal 0.2-2.0 [facility] Comment on above: Performed By: #### C BC ####[facility] [address] [place], [place] [id number]. Tanner Madison EO # 0.1 103/ul Normal 0.0-0.7 [facility] Comment on above: Performed By: #### C BC ####[facility] [address] [place], [place] [id number]. Tanner Madison Eosinophils/100 WBC (Bld) 1.5 % Normal 0.9-7.0 [facility] Comment on above: Performed By: #### C BC ####[facility] [address] [place], [place] [address]Dr. Tanner Madison Erythrocyte distribution width (RBC) [Ratio] 13.2 % Normal 11.0-15.0 [facility] Comment on above: Performed By: #### C BC ####[facility] [address] [place], [place] [address]Dr. Tanner Madison Hematocrit (Bld) [Volume fraction] 34.1 % Critically low 36.0-48.0 [facility] Comment on above: Performed By: #### C BC ####[facility] [address] [place], [place] [address]Dr. Tanner Madison Hemoglobin (Bld) [Mass/Vol] 11.7 g/dL Critically low 12.0-16.0 [facility] Comment on above: Performed By: #### C BC ####[facility] [address] [place], [place] [address]Dr. Tanner Madison IG # 0.02 10e3/ul Normal 0.00-0.03 [facility] Comment on above: Performed By: #### C BC ####[facility] [address] [place], [place] [address]Dr. Tanner Madison IG % 0.4 % Normal 0.0-0.5 [facility] Comment on above: Performed By: #### C BC ####[facility] [address] [place] [id number]. Tanner Madison LYMPH # 1.2 103/ul Normal 1.2-3.8 [facility] Comment on above: Performed By: #### C BC ####[facility] [address] [place] [id number]. Tanner Madison Lymphocytes/100 WBC (Bld) 25.6 % Normal 20.5-60.0 [facility] Comment on above: Performed By: #### C BC ####[facility] [address] [place] [address]Dr. Tanner Madison MANUAL DIFF REQ NO Normal [facility] Comment on above: Performed By: #### C BC ####[facility] [address] [place] [address]Dr. Tanner Madison MCH (RBC) [Entitic mass] 30.9 pg Normal 26.7-34.0 [facility] Comment on above: Performed By: #### C BC ####[facility] [address] [place] [id number]. Tanner Madison MCHC (RBC) [Mass/Vol] 34.3 g/dL Normal 29.9-35.2 [facility] Comment on above: Performed By: #### C BC ####[facility] [address] [place] [id number] Madison MCV (RBC) [Entitic vol] 90.0 fL Normal 81.0-99.0 [facility] Comment on above: Performed By: #### C BC ####[facility] [address] [place] [id number] Madison MONO # 0.4 103/ul Normal 0.3-0.8 [facility] Comment on above: Performed By: #### C BC ####[facility] [address] [place] [id number]. Tanner Madison Monocytes/100 WBC (Bld) 7.6 % Normal 1.7-12.0 [facility] Comment on above: Performed By: #### C BC ####[facility] [address] [place] [id number]. Tanner Madison NEUT # 3.0 103/ul Normal 1.4-6.5 [facility] Comment on above: Performed By: #### C BC ####[facility] [address] [place] [id number]. Tanner Madison Neutrophils/100 WBC (Bld) 64.2 % Normal 43.0-75.0 [facility] Comment on above: Performed By: #### C BC ####[facility] [address] [place] [id number]. Tanner Madison Platelet mean volume (Bld) [Entitic vol] 8.5 fL Critically low 9.5-13.5 [facility] Comment on above: Performed By: #### C BC ####[facility] [address] [place] [id number]. Tanner Madison PLT 269 103/ul Normal 150-450 [facility] Comment on above: Performed By: #### C BC ####[facility] [address] [place] [id number]. Tanner Madison RBC 3.79 106/ul Critically low 4.20-5.40 [facility] Comment on above: Performed By: #### C BC ####[facility] [address] [place] [id number]. Tanner Madison WBC 4.6 103/ul Normal 4.0-11.0 [facility] Comment on above: Performed By: #### C BC ####[facility] [address] [place] [id number]. Tanner Los MG MAMM SCREEN 3D VIJAYA CADon 03-08-2022 MG MAMM SCREEN 3D VIJAYA CAD Patient: COURTNEY WHITE Exam Date: 03/08/2022 : 1950 Gender:F Ordering : DR KAR MOTA D.O. Admission #: [id number] Family : Order #: [id number] CLICK HERE TO VIEW EXAM RADIOLOGY REPORT [...] breast cancer at age 48. LOCATION: [facility] BREAST COMPOSITION: Extremely dense, which lowers [...] Fregoso MD on 03/08/2022 at 12:18 Normal [facility] PROF CHEM 8 (BAS METB)on Anion gap [Moles/Vol] 11.0 mmol/L Normal [facility] Comment on above: Performed By: #### T TYRA BMP #### [facility] [address] [place] [address] Dr. Tanner Madison Calcium [Mass/Vol] 9.5 mg/dL Normal 8.5-10.1 [facility] Comment on above: Performed By: #### T TYRA, BMP #### [facility] [address] [place] [address] Dr. Tanner Madison Chloride [Moles/Vol] 103 mmol/L Normal 98-107 [facility] Comment on above: Performed By: #### T TYRA, BMP #### [facility] [address] [place] [address] Dr. Tanner Madison CO2 [Moles/Vol] 30.1 mmol/L Normal 21.0-32.0 [facility] Comment on above: Performed By: #### T TYRA, BMP #### [facility] [address] [place] [address] Dr. Tanner Madison Creatinine [Mass/Vol] 0.98 mg/dL Normal 0.55-1.02 [facility] Comment on above: Performed By: #### T SH, BMP #### [facility] [address] [place] [address] Dr. Tanner Madison EGFR-AF JAPANESE >60 Normal >=60 [facility] Comment on above: Performed By: #### T SH, BMP #### [facility] [address] [place] [address] Dr. Tanner Madison EGFR-NON AF JAPANESE 56 mL/min/1.73m2 Critically low >=60 [facility] Comment on above: Performed By: #### T SH, BMP #### [facility] [address] [place] [address] Dr. Tanner Madison Glucose [Mass/Vol] 91 mg/dL Normal 74-106 [facility] Comment on above: Performed By: #### T SH, BMP #### [facility] [address] [place] [address] Dr. Tanner Madison Potassium [Moles/Vol] 4.1 mmol/L Normal 3.5-5.1 [facility] Comment on above: Performed By: #### T SH, BMP #### [facility] [address] [place] [address] Dr. Tanner Madison Sodium [Moles/Vol] 140 mmol/L Normal 136-145 [facility] Comment on above: Performed By: #### T SH, BMP #### [facility] [address] [place] [address] Dr. Tanner Madison Urea nitrogen [Mass/Vol] 14.0 mg/dL Normal 7.0-18.0 [facility] Comment on above: Performed By: #### T SH, BMP #### [facility] [address] [place] [address] Dr. Tanner Madison Urea nitrogen/Creatinin e [Mass ratio] 14.3 mg/mg Normal [facility] Comment on above: Performed By: #### T SH, BMP #### [facility] [address] [place] [address] Dr. Tanner Madison TSHon 03-08-2022 TSH 2.659 uIU/mL Normal 0.358-3.740 [facility] Comment on above: Performed By: #### T SH, BMP #### [facility] [address], [place] [address] Dr. Tanner Madison VITAMIN D 25 OHon 03-08-2022 VIT D 25-OH 63.4 ng/mL Normal [facility] Comment on above: Performed By: #### V ITAD ####[facility] [address] [place] [id number]. Tanner Madison VIT D RANGES SEE BELOW Normal [facility] Comment on above: Result Comment: <20 ng/mL Vit D deficient 20 - <30 ng/mL Vit D insufficient 30 - 100 ng/mL Vit D sufficient >100 ng/mL Potential Toxicity Performed By: #### V ITAD ####[facility] [address] [place] [address]Dr. Tanner Madison XR DEXA BONE DENSITYon 03-08 [...] by: MARTA ELIAS Date: 2022-03-08 10:52 Normal [facility] Asa 11-16-2021 SAEED Telephone (NIQ) LECOURTNEY ([id number]) 1950 F Date Time Provider Department 11/16/21 ANCELMO SANDOVAL During your visit today, we recorded the following information about you: Cesilia Adler 11/16/2021 1:47 PM Signed Received the following record(s) via fax. -MRI tspine wo(report) Date 11/03/21 Record(s) scanned into pt's chart. Cesilia Adler Images requested Allergies As of Date: 11/16/2021 [...] Status:Closed by RAYSA RICO on 11/23/21 Normal [facility] MRI LSPINE WO CONon 11-05-19 MRI LSPINE WO CON EXAMINATION: MRI LSPINE WO CON HISTORY: Scoliosis deformity of spine [...] by: MARTA ELIAS Date: 2021-11-04 06:33 Normal [facility] MRI TSPINE WO CONon 11-04-[address] [facility] WO CON EXAMINATION: MRI TSPINE WO CON HISTORY: Scoliosis deformity of spine [...] JEFF FREGOSO Date: 2021-11-03 19:07 Normal [facility] VIT D 25-OH LABCORPon 2021 Vitamin D, 25-Hydroxy 69.8 ng/mL Normal 30.0-100.0 [facility] Comment on above: Result Comment: Negar min D deficiency has been defined by the [place] [employer] and an Endocrine Society practice guideline as a level of serum 25-OH vitamin D less than 20 ng/mL (1,2). The Endocrine Society went on to further define vitamin D insufficiency as a level between 21 and 29 ng/mL (2). 1. IOM ([place] [employer]). 2010. Dietary reference intakes for calcium and D. [place]: The National Academies Press. 2. Mikal MF, Jayy NC, Zi MACHADO, et al. Evaluation, treatment, and prevention of vitamin D deficiency: an Endocrine Society clinical practice guideline. JCEM. 2010; 96(7):1911-30. Performed By: #### V ITADLC #### [facility] [address] [place] [address] Dr. Tanner Madison CBC AUTO DIFFon 10-28-2021 BASO # 0.0 103/ul Normal 0.0-0.1 [facility] Comment on above: Performed By: #### C BC #### [facility] [address] [place] [address] Dr. Tanner Madison Basophils/100 WBC (Bld) 0.6 % Normal 0.2-2.0 [facility] Comment on above: Performed By: #### C BC #### [facility] [address] [place] [address] Dr. Tanner Madison EO # 0.1 103/ul Normal 0.0-0.7 [facility] Comment on above: Performed By: #### C BC #### [facility] [address] [place] [address] Dr. Tanner Madison Eosinophils/100 WBC (Bld) 1.1 % Normal 0.9-7.0 [facility] Comment on above: Performed By: #### C BC #### [facility] [address] [place] [address] Dr. Tanner Madison Erythrocyte distribution width (RBC) [Ratio] 13.5 % Normal 11.0-15.0 [facility] Comment on above: Performed By: #### C BC #### [facility] [address] [place] [address] Dr. Tanner Madison Hematocrit (Bld) [Volume fraction] 31.7 % Critically low 36.0-48.0 [facility] Comment on above: Performed By: #### C BC #### [facility] [address] [place] [address] Dr. Tanner Madison Hemoglobin (Bld) [Mass/Vol] 10.8 g/dL Critically low 12.0-16.0 [facility] Comment on above: Performed By: #### C BC #### [facility] [address] [place] [address] Dr. Tanner Madison IG # 0.01 10e3/ul Normal 0.00-0.03 [facility] Comment on above: Performed By: #### C BC #### [facility] [address] [place] [address] Dr. Tanner Madison IG % 0.2 % Normal 0.0-0.5 [facility] Comment on above: Performed By: #### C BC #### [facility] [address] [place] [address] Dr. Tanner Madison LYMPH # 1.3 103/ul Normal 1.2-3.8 [facility] Comment on above: Performed By: #### C BC #### [facility] [address] [place] [address] Dr. Tanner Madison Lymphocytes/100 WBC (Bld) 24.0 % Normal 20.5-60.0 [facility] Comment on above: Performed By: #### C BC #### [facility] [address] [place] [address] Dr. Tanner Madison MANUAL DIFF REQ NO Normal [facility] Comment on above: Performed By: #### C BC #### [facility] [address] [place] [address] Dr. Tanner Madison MCH (RBC) [Entitic mass] 31.0 pg Normal 26.7-34.0 [facility] Comment on above: Performed By: #### C BC #### [facility] [address] [place] [address] Dr. Tanner Madison MCHC (RBC) [Mass/Vol] 34.1 g/dL Normal 29.9-35.2 [facility] Comment on above: Performed By: #### C BC #### [facility] [address] [place] [address] Dr. Tanner Madison MCV (RBC) [Entitic vol] 91.1 fL Normal 81.0-99.0 [facility] Comment on above: Performed By: #### C BC #### [facility] [address] [place] [address] Dr. Tanner Madison MONO # 0.5 103/ul Normal 0.3-0.8 [facility] Comment on above: Performed By: #### C BC #### [facility] [address] [place] [address] Dr. Tanner Madison Monocytes/100 WBC (Bld) 8.3 % Normal 1.7-12.0 [facility] Comment on above: Performed By: #### C BC #### [facility] [address] [place] [address] Dr. Tanner Madison NEUT # 3.6 103/ul Normal 1.4-6.5 [facility] Comment on above: Performed By: #### C BC #### [facility] [address] [place] [address] Dr. Tanner Madison Neutrophils/100 WBC (Bld) 65.8 % Normal 43.0-75.0 [facility] Comment on above: Performed By: #### C BC #### [facility] [address] [place] [address] Dr. Tanner Madison Platelet mean volume (Bld) [Entitic vol] 8.6 fL Critically low 9.5-13.5 [facility] Comment on above: Performed By: #### C BC #### [facility] [address] [place] [address] Dr. Tanner Madison PLT 234 103/ul Normal 150-450 [facility] Comment on above: Performed By: #### C BC #### [facility] [address] [place] [address] Dr. Tanner Madison RBC 3.48 106/ul Critically low 4.20-5.40 [facility] Comment on above: Performed By: #### C BC #### [facility] [address] [address] [address] Tanner Madison WBC 5.4 103/ul Normal 4.0-11.0 [facility] Comment on above: Performed By: #### C BC #### [facility] [address] [address] [address] Tanner Madison PROF CHEM 8 (BAS METB)on Anion gap [Moles/Vol] 12.7 mmol/L Normal [facility] Comment on above: Performed By: #### B MP ####[facility] [address] [address]DrAryan Madison Calcium [Mass/Vol] 9.2 mg/dL Normal 8.5-10.1 [facility] Comment on above: Performed By: #### B MP ####[facility] [address] [address]Dr. Tanner Madison Chloride [Moles/Vol] 102 mmol/L Normal 98-107 [facility] Comment on above: Performed By: #### B MP ####[facility] [address] [address]Dr. Tanner Madison CO2 [Moles/Vol] 30.4 mmol/L Normal 21.0-32.0 [facility] Comment on above: Performed By: #### B MP ####[facility] [address] [address]Dr. Tanner Madison Creatinine [Mass/Vol] 1.07 mg/dL Critically high 0.55-1.02 [facility] Comment on above: Performed By: #### B MP ####[facility] [address] [address]DrAryan Madison EGFR-AF JAPANESE >60 Normal >=60 [facility] Comment on above: Performed By: #### B MP ####[facility] [address] [address]DrAryan Madison EGFR-NON AF JAPANESE 50 mL/min/1.73m2 Critically low >=60 [facility] Comment on above: Performed By: #### B MP ####[facility] [address] [address]Dr. Tanner Madison Glucose [Mass/Vol] 99 mg/dL Normal 74-106 [facility] Comment on above: Performed By: #### B MP ####[facility] [address] [id number]. Tanner Madison Potassium [Moles/Vol] 4.1 mmol/L Normal 3.5-5.1 [facility] Comment on above: Performed By: #### B MP ####[facility] [address] [address]Dr. Tanner Madison Sodium [Moles/Vol] 141 mmol/L Normal 136-145 [facility] Comment on above: Performed By: #### B MP ####[facility] [address] [address]Dr. Tanner Madison Urea nitrogen [Mass/Vol] 16.0 mg/dL Normal 7.0-18.0 [facility] Comment on above: Performed By: #### B MP ####[facility] [address] [address]Dr. Tanner Madison Urea nitrogen/Creatinin e [Mass ratio] 15.0 mg/mg Normal [facility] Comment on above: Performed By: #### B MP ####[facility] [address] [address]Dr. Tanner Los LOBOOVon 10-15-2021 CNOV Office Visit (SPNMMN ) COURTNEY WHITE ([id number]) 1950 F Date Time Provider Department 10/15/21 2:00 PM ANCELMO SANDOVAL [facility] During your visit today, we recorded [...] short period (more content not included)... Normal [facility] XR SCOLIOSIS 2V PA STAND/LAT on 10-15-2021 [...] abnormality. IMPRESSION: Thoracolumbar scoliosis and degenerative changes. Senior Sales Manager: BLANE Transcribe Date/Time: Oct 15 2021 2:52P Dictated by : CHETNA HERNANDEZ MD This examination was interpreted and the report reviewed and electronically signed by: CHETNA HERNANDEZ MD on Oct 15 2021 2:54PM EST [id number] N Normal [facility] XR SCOLIOSIS PA STAND/LAT 2V on 10-15-2021 [facility] 08-27-2021 L - -------- Specimen: [id number] Received: 08/27/21 Status: ELIZABETHGil Garcia Num: [id number] Spec Type: Surgical Subm Dr: Will Ma MD Tissues: A Gastric Biopsy (GASTRIC BXS) Procedures: HE Stain/2, Gross/Micro L4 -------- Patient Age/Sex Location Account Attending Physician -------- Courtney White 70/F [id number] Will Ma MD -------- SPEC NUM: [id number] RECD: 08/27/21 STATUS: VINOD GARCIA NUM: [id number] JHONNY: 08/27/21- [facility] DR: Will Ma MD ENTERED: 08/27/[address] [facility] [address]: SON TYPE: Surgical DEPT: S [...] Entirely submitted in one cassette labeled A1. (EUFEMIA/YJ) Microscopic Description Two glass slides with H E stained material have been examined. The microscopic findings support the above pathologic diagnosis. [id number] -------- -------- Specimen: [id number] Received: 08/27/21 Status: VINOD Radha Num: [id number] Spec Type: Surgical Subm Dr: Will Ma MD Tissues: A Gastric Biopsy (GASTRIC BXS) Procedures: HE Stain/2, Gross/Micro L4 -------- Patient: Courtney White [id number] (Continued) -------- Signed (signature on file) Nisreen Marquez MD 08/31/21 1826 [facility] SARS-CoV-2 (COVID-19) RNA JEFFRY+probe Ql (Unsp spec) Negative Normal Negative [facility] Comment on above: Order Comment: Healt hcare Worker?: N Result Comment: Testing for SARS-CoV-2 by RT-PCR This test was developed and its performance characteristics determined by [employer] ([employer]) and validated at the [facility]. This test has not been FDA cleared [...] is terminated or revoked sooner. PERFORMED BY: [place] [address] PATHOLOGIST SOLAR TECH NISREEN MARQUEZ M.D. Performed By: #### C OVID 19 [facility] #### [address] Vital Signs Date Time Vital Sign Value Performing Clinician Facility 08-03-2023 10:08040 Body height 160.02 cm [facility] 08-03-2023 10:08040 Body mass index (BMI) [Ratio] 19.7 kg/m2 [facility] 08-03-2023 10:08040 Body weight 50.57 kg [facility] 08-03-2023 10:08-0400 Diastolic blood pressure 81 mm[Hg] [facility] 08-03-2023 10:08-0400 Heart rate 70 /min [facility] 08-03-2023 10:08-0400 Respiratory rate 12 /min [facility] 08-03-2023 10:08-040 Systolic blood pressure 150 mm[Hg] [facility] 09-26-2022 10:30-0400 Body height 160.02 cm Kar Ball Other [employer] Other 09-26-2022 10:30-0400 Body mass index (BMI) [Ratio] 19.31 kg/m2 Kar Ball Other [employer] Other 09-26-2022 10:30-0400 Body weight 49.44 kg Kar Ball Other [employer] Other 09-26-2022 10:30-0400 Diastolic blood pressure 75 mm[Hg] Kar Ball Other [employer] Other 09-26-2022 10:30-0400 Respiratory rate 12 /min Kar Ball Other [employer] Other 09-26-2022 10:30-0400 Systolic blood pressure 166 mm[Hg] Kar Ball Other [employer] Other 02-01-2022 10:22-0500 Body height 160 cm Wellington Hong MD Work Phone: [facility] 02-01-2022 10:22-0500 Body weight 49.9 kg Wellington Hong MD Work Phone: [facility] 02-01-2022 10:22-0500 Diastolic blood pressure 76 mm[Hg] Wellington Hong MD Work Phone: [facility] 02-01-2022 10:22-0500 Heart rate 71 /min Wellington Hong MD Work Phone: [facility] 02-01-2022 10:22-0500 Respiratory rate 14 /min Wellington Hong MD Work Phone: [facility] 02-01-2022 10:22-0500 SaO2% (BldA) [Mass fraction] 98 % Wellington Hong MD Work Phone: [facility] 02-01-2022 10:22-0500 Systolic blood pressure 168 mm[Hg] Wellington Hong MD Work Phone: [facility] Encounters Encounter Date Encounter Type Care Provider Facility Start: 08-03-2023 End: 08-03-2023 ambulatory [facility] Work Phone: Start: 08-03-2023 End: 08-03-2023 Patient encounter procedure [facility] Work Phone: Start: 07-19-2023 Non-patient / Non-visit [facility] Work Phone: Start: 03-27-2023 End: 03-27-2023 ambulatory Kar Ball Other [employer] Other Start: 03-27-2023 Office outpatient vi sit 15 minutes Kar Mota [facility] Start: 03-27-2023 Telephone encounter Kar Ball [facility] Start: 01-23-2023 End: 01-23-2023 ambulatory Kar Nakul Other [employer] Other Start: 01-23-2023 Telephone encounter Kar Mota [facility] Start: 11-29-2022 End: 11-29-2022 ambulatory Kar Ball Other [employer] Other Start: 11-29-2022 Telephone encounter Kar Ball [facility] Start: 11-28-2022 End: 11-28-2022 ambulatory Kar Ball Other [employer] Other Start: 11-28-2022 Nursing evaluation o f patient and report Kar Mota [facility] Start: 11-28-2022 Telephone encounter Kar Ball [facility] Start: 10-04-2022 End: 10-04-2022 ambulatory Kar Ball Other [employer] Other Start: 10-04-2022 Telephone encounter Kar Ball [facility] Start: 09-26-2022 End: 09-26-2022 ambulatory Kar Mota Other [employer] Other Start: 09-26-2022 Office outpatient vi sit 15 minutes Kar Mota [facility] Start: 07-14-[address] MANJULA MARCIAL Facil ity:[facility]1 Start: 05-02-2022 End: 05-03-[address] MANJULA MARCIAL Facility:[facility] Start: 03-08-2022 End: 03-09-[address] MANJULA MARCIAL Facility:[facility] Start: 03-02-2022 End: 03-03-[address] MANJULA MARCIAL Facility:[facility] Start: 02-15-2022 Adult health examination Chris Mota Other [employer] Other Start: 02-01-2022 End: 02-01-2022 ambulatory ANCELMO SANDOVAL Facility:[facility] Start: 02-01-2022 End: 02-01-2022 Patient encounter procedure Wellington Hong MD Work Phone: [facility] Comment on above: Encounter for screen ing [...] Start: 10-15-2021 End: 10-15-2021 ambulatory ANCELMO SANDOVAL Facility:[facility] Start: 10-15-2021 End: 10-15-2021 Subsequent hospital [...] of colon Kar Mota Other Depression screening Benjami n Nakul Other Screening for malign ant neoplasm of breast Kar Mota Other Plan of Treatment Date Care Activity Detail Author Start: 02-27-2022 ADVANCE DIRECTIVE DISCUSSION ADVANCE DIRECTIVE DISCUSSION [facility] Start: 02-27-2022 DEPRESSION ASSESSMENT DEPRESSION ASS ESSMENT [facility] Start: 10-28-2021 Influenza vaccination INFLUENZA (#1) [facility] Start: 07-25-2021 COVID-19 VACCINE (5 - Booster for Pfizer series) COVID-19 VACCINE (5 - Booster for Pfizer series) [facility] Start: 02-27-2021 ADVANCE DIRECTIVE DISCUSSION ADVANCE DIRECTIVE DISCUSSION [facility] Start: 02-27-2021 DEPRESSION ASSESSMENT DEPRESSION ASS ESSMENT [facility] Start: 2013 BONE DENSITY BONE DENSITY [facility] Start: 2013 PNEUMOCOCCAL: 65+ (1 - PCV) PNEUMOCOCCAL: 65+ (1 - PCV) [facility] Start: 1998 SHINGRIX VACCINE (1 of 2) SHINGRIX VACCINE (1 of 2) [facility] Start: 1993 COLOGUARD (FIT-DNA) COLOGUARD (FIT-D NA) [facility] Start: 1993 Colonoscopy COLONOSCOPY [facility] Start: 1993 COLORECTAL CANCER SCREENING COLORECTAL CANCER SCREENING [facility] Start: [address] [facility] Start: 1993 DIABETES SCREEN DIABETES SCREEN [facility] Start: 1993 FECAL OCCULT BLOOD FECAL OCCULT BLOO D [facility] Start: 1993 LIPID SCREEN LIPID SCREEN [facility] Start: 1993 SIGMOIDOSCOPY SIGMOIDOSCOPY [facility] Start: 1988 Mammography MAMMOGRAM [facility] Start: 11-13-1967 Urine microalbumin profile DTAP,TDAP,TD (1 - Tdap) [facility] Start: 1966 HEPATITIS C SCREENING HEPATITIS C SC JORDIMAHSA [facility] Start: 1960 Adult depression screening assessment DEPRESSION SCREENING [facility] Comprehensive metabo lic 2000 panel - Serum or Plasma [facility] End: 03-03-2023 DXA-AXIAL SKELETON DXA-AXIAL SKELETON Radiology Routine Encounter for screening for osteoporosis 1 Occurrences starting 02/01/2022 until 03/03/2023 [facility] Work Phone: Comment on above: 1 Occurrences starti ng 02/01/2022 until 03/03/2023 [facility] Immunizations Immunization Date Immunization Notes Care Provider Fa cility 11-28-2022 influenza virus vaccine, unspecified formulation [facility] 11-28-2022 influenza, high dose seasonal, preservative-free Kar Mota Other [facility] [employer] Other 11-26-2021 influenza virus vaccine, split virus (incl. purified surface antigen) Kar Mota Other [facility] [employer] Other 11-26-2021 influenza virus vaccine, unspecified formulation [facility] 05-30-2021 COVID-19 Vaccine Pfi zer - Documentation Purposes Only Kar Mota Other [facility] 12-04-2020 influenza virus vaccine, split virus (incl. purified surface antigen) Kar Mota Other [facility] [employer] Other 12-04-2020 influenza virus vaccine, unspecified formulation [facility] 11-22-2020 COVID-19 Vaccine Pfi zer - Documentation Purposes Only Kar Mota Other [facility] 04-18-2020 COVID-19 Vaccine Pfi zer - Documentation Purposes Only Kar Mota Other [facility] 03-28-2020 COVID-19 mRNA, Comirnaty (Pfizer) [facility] 03-28-2020 COVID-19 Vaccine Moderna - Documentation Purposes Only Kar Nakul Other [facility] 11-07-2019 influenza virus vaccine, split virus (incl. purified surface antigen) Kar Mota Other [employer] Other 11-07-2019 influenza virus vaccine, unspecified formulation [facility] 11-26-2018 influenza virus vaccine, split virus (incl. purified surface antigen) Kar Nakul Other [employer] Other 11-26-2018 influenza virus vaccine, unspecified formulation [facility] 12-07-2017 influenza virus vaccine, split virus (incl. purified surface antigen) Kar Mota Other [employer] Other 12-07-2017 influenza virus vaccine, unspecified formulation [facility] 12-19-2016 influenza virus vaccine, split virus (incl. purified surface antigen) Kar Nakul Other [employer] Other 12-19-2016 influenza virus vaccine, unspecified formulation [facility] 12-01-2015 influenza virus vaccine, split virus (incl. purified surface antigen) Kar Mota Other [employer] Other 12-01-2015 influenza virus vaccine, unspecified formulation [facility] 05-15-2015 pneumococcal conjuga te vaccine, 13 valent Kar Mota Other [facility] 12-10-2014 influenza virus vaccine, split virus (incl. purified surface antigen) Kar Mota Other [employer] Other 12-10-2014 influenza virus vaccine, unspecified formulation [facility] 12-18-2013 tetanus and diphther ia toxoids, adsorbed, preservative free, for adult use (5 Lf of tetanus toxoid and 2 Lf of diphtheria toxoid) Kar Mota Other [facility] 2013 pneumococcal polysaccharide vaccine, 23 valent Kar Mota Other [facility] 12-17-2012 tetanus and diphther ia toxoids, adsorbed, preservative free, for adult use (5 Lf of tetanus toxoid and 2 Lf of diphtheria toxoid) Kar Mota Other [facility] Payers Date Payer Category Payer Medicare HUMANA MEDICARE HU[employer]NA MEDICARE PPO [id number] 2017-Present [phone] [address] [address] [place] [address] PPO [id number] 1961 Medicare [id number] 1950 Unknown [id number] 1950 Unknown [id number] 1950 Unknown [id number] 1950 Unknown [id number] 1950 Unknown [id number] [id number] 1950 Unknown [id number] [id number] 1950 Unknown [id number] 1950 Unknown [id number] [id number] 1950 Unknown [id number] [id number] 1950 Unknown [id number] [id number] 1950 Unknown [id number] Self-pay Self Pay [id number] Social History Date Type Detail Facility Start: 08-27-2021 End: 10-15-2021 Tobacco smoking status NHIS Ex-smoker [facility] History of tobacco use Current smoker [facility] History of tobacco use Cigarette Smoker [facility] Start: 10-15-2021 Tobacco use and exposure Smokeless tobacco non-user [facility] Start: 10-15-2021 End: 02-01-2022 Alcohol intake Lifetime non-drinker (finding) [facility] Start: 1950 Sex Assigned At Not on file C [facility] Start: 10-05-2021 End: 10-15-2021 Exposure to SARS-CoV-2 (event) Not sure [facility] Sex Assigned At Sex Assigned At Bir th [employer] Other Start: 1950 Sex Assigned At Female F [facility] Clinical Notes 10-15-2021 to 03-27-2023 Note Date [...] increased frequency > 3/24 hours and watery [employer] Other 11-27-2023 Evaluation note* Encounter Date Diagnosis Assessment Notes Treatment Notes Treatment Clinical Notes Dec, Pain in thoracic spine (ICD-10 - M54.6) [employer] Other 10-02-2023 Evaluation note* Encounter Date Diagnosis Assessment Notes Treatment Notes Treatment Clinical Notes Nov, Lumbar spondylosis (ICD-10 - M47.816) [employer] Other 07-31-2023 Evaluation note* Encounter Date Diagnosis [...] but may cause increased bloating. [employer] Other 07-31-2023 Evaluation note* Encounter Date Diagnosis [...] but may cause increased bloating. [employer] Other 12-06-2022 NoteHNO ID: [id number] Author: Wellington Hong MD Service: ? Author [...] information obtained and documented by the physician assistant account manager. I examined the patient and evaluated all [...] when sitting. No partha (more content not included)...[facility]12-06-2022 Instructions* Patient Instructions* Ancelmo Sandoval PA-C - [...] your usual activities immediately. [facility] History of Present illness Narrative* Wellington Hong [...] information obtained and documented by the physician assistant account manager. I examined the patient and evaluated all [...] By signing my name below, I, Melba Cedilloharwal, attest that this documentation has been prepared under the direction and in the presence of Wellington Hong MD. Electronically Signed:musa Orozco, January 31, 2022 9:13 PM I agree with the Chief Complaint, ROS, and Past Histories independently gathered by the clinical air support operations operator and the remaining scribed note accurately describes my personal service to the patient. Wellington Hong MD [facility] NoteCONSULTATION CONSULTATION DATE: 01/18/2022 CHIEF COMPLAINT: Low [...] appointment to see a spinal surgeon at [facility] in the near future. PHYSICAL EXAM: Upon [...] We shall await the patient's evaluation with [facility]. Subsequent to that, we will make a [...] this in February, given her 's illness.The [facility] [id number] Note CONSULTATION PROCEDURE DATE: 12/21/2021 CHIEF COMPLAINT: [...] has responded well to this treatment. The [facility] [id number] NoteCONSULTATION CONSULTATION DATE: 11/30/2021 CHIEF COMPLAINT: Low [...] annually. The patient has been seen by [facility] with regards to the possibility of [...] was encouraged to maintain the communication with [facility] to see whether other options are available. We will repeat the testosterone cypionate on her return visit. The patient understands and would like to proceed. CC: Manjula Marcial M.D.The [facility] [id number] NoteCONSULTATION PROCEDURE DATE: 11/23/2021 PREOPERATIVE DIAGNOSIS: Lumbar [...] try to attain a neutral posture laterally.The [facility]c [id number] NoteCONSULTATION CONSULTATION DATE: 11/23/2021 CHIEF COMPLAINT: Left leg pain, low back pain. HISTORY OF PRESENT ILLNESS: This is a very pleasant, 71-year-old female who is known to the [facility]. The patient has an MRI of her lumbar spine, CT of the thoracic and CT of the lumbar spine. The patient has severe rotoscoliosis. The patient was seen at the [facility]. The patient states she is functioning [...] like to proceed. CC: Manjula Marcial M.D.The [facility]c [id number] Miscellaneous Notes* Telephone Encounter - Cesilia Adler - 11/16/2021 1:46 PM EDT Received the following record(s) via fax. -MRI tspine wo(report) Date 11/03/21 Record(s) scanned into pt's chart. Cesilia Adler Images requested [facility] NotePROCEDURE: CT TSPINE WO CON, CT LSPINE [...] Electronically authenticated by: JEFF FREGOSO Date: 2021-11-03 18:57[facility]09-07-2022 NotePROCEDURE: CT TSPINE WO CON, CT [...] Electronically authenticated by: JEFF FREGOSO Date: 2021-11-03 18:57[facility]08-19-2022 NoteHNO ID: [id number] Author: Ancelmo Sandoval PA-C Service: ? Author Type: Physician Manager Department Type: Progress Notes Filed: 10/18/2021 8:52 AM [...] neuromuscular referral to (more content not included)... [facility] note* Diagnosis Scoliosis of thoracolumbar spine, unspecified scoliosis type documented in this encounter [facility] note* Diagnosis Encounter for screening for osteoporosis- Primary Special screening for osteoporosis documented in this encounter [facility] noteNo InformationNortWell[facility] [employer] Other Evaluation note* Diagnosis Onset Date Resolution Status Chronic kidney disease acute Elevated BP without diagnosis of hypertension acute VALDEZ (generalized anxiety disorder) acute GERD (gastroesophageal reflux disease) acute 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 Medicare annual wellness visit, subsequent noneactive Screening mammogram for breast cancer noneactive [facility] Work Phone: History general Narrative - Reported* Type Description [...] Colonoscopy 2021 Hospitalization History SEE SURGICAL HX [place] Amanda Huff [facility] Other Reason for referral (narrative)* Diagnostic Procedure Only (Routine) - Closed Specialty Diagnoses / Procedures Referred By Mouna t Referred To Contact XR IMAGING Diagnoses Scoliosis of thoracolumbar spine, unspecified scoliosis type Procedures XR SCOLIOSIS PA STAND/LAT 2V RADEX ENTIR THRC LMBR CRV SAC SPI W/SKULL 2/3 VW Ancelmo Sandoval PA-C [address] [place] [address] Xr Imaging Referral ID Status Reason Start Date Expiration Date V isits Requested Visits Authorized [id number] Closed Auto-Generate d Referral 10/15/2021 11/14/2022 1 1 [facility] for visit Narrative* Diagnostic Procedure Only (Routine) - Closed Specialty Diagnoses / Procedures Referred By Contac t Referred To Contact XR IMAGING Diagnoses Scoliosis of thoracolumbar spine, unspecified scoliosis type Procedures XR SCOLIOSIS PA STAND/LAT 2V RADEX ENTIR THRC LMBR CRV SAC SPI W/SKULL 2/3 VW Ancelmo Sandoval PA-C [address] [place] [address] Xr Imaging Referral ID Status Reason Start Date Expiration Date V isits Requested Visits Authorized [id number] Closed Auto-Generate d Referral 10/15/2021 11/14/2022 1 1 [facility] Summary Purpose Family History Relationship Condition Age at Onset Recorded Date/T hoda Not Specified Arthritis Unknown father Hypertension Unknown Heart problem Unknown Diabetes mellitus Unknown Not Specified Family history of mental disorder Unknow n Anxiety Unknown Advance Directives Advance Directive Response Recorded Date/ Time Advance Directives No August 25 10:58am Chief Complaint and Reason for Visit Chief Complaint Amb Documentation wellness Reason for Visit Chronic kidney disea se Elevated BP without diagnosis of hypertension VALDEZ (generalized anxiety disorder) GERD (gastroesophageal reflux disease) 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 Medicare annual wellness visit, subsequent Screening mammogram for breast cancer Additional Source Comments INFORMATION SOURCE (unrecogn ized section and content) DATE CREATED AUTHOR 09/02/2021 [facility] DATE CREATED AUTHOR AUTHOR'S ORGANIZ ATION 03/07/2022 [facility] DATE CREATED AUTHOR AUTHOR'S ORGANIZ ATION 07/13/2022 [facility] Source Comments (unrecognize d section and content) In the event this informatio n is protected by the Federal Confidentiality of Alcohol and Drug Abuse Patient Records regulations: The Federal rules restrict any use of the information to criminally investigate or prosecute any alcohol or drug abuse patient.[facility] the event this information is protected by the Federal Confidentiality of Alcohol and Drug Abuse Patient Records regulations: The Federal rules restrict any use of the information to criminally investigate or prosecute any alcohol or drug abuse patient.[facility] the event this information is protected by the Federal Confidentiality of Alcohol and Drug Abuse Patient Records regulations: The Federal rules restrict any use of the information to criminally investigate or prosecute any alcohol or drug abuse patient.[facility] Reason for Visit (unrecogniz ed section and content) Reason Comments Results Reason Comments New Patient Care Teams (unrecognized sec tion and content) Team Status: Active Member Role Status Dates Kar Mota DO Primary Care Provider Active Team Status: Active Member Role Status Dates Kar Mota DO Primary Care Provider Active Start: July 19, 2023 KARLA Santamaria Attending Provider Active Start : July 19, 2023 Team Status: Inactive Member Role Status Dates Kar Mota DO Primary Care Provide r, Attending Provider Active Start: August 03, 2023 End: August 03, 2023 Goals (unrecognized section and content) Goals may be documented in a n alternate section FOR RECORDS PERTAINING TO PATIENTS WHO ARE [...] BE BASED ON THE PRIMARY CLINICAL RECORDS. [facility]. provides no warranty or guarantee of the accuracy or completeness of information in this document.
[2023-09-12 10:55] VITALS: BP 174/90; PULSE 82; TEMP 36.7; O2SAT 97
[2023-09-12 11:33] VITALS: BP 154/65; PULSE 77; O2SAT 97
[2023-09-12 11:43] VITALS: BP 126/64; PULSE 74; O2SAT 98
[2023-09-12] MEDS: LIDOCAINE HCL 2% 400 MG/20 ML MDV 7 ML INJ (11:49)
[2023-09-12] MEDS: BUPIVACAINE HCL 0.25% PF 25 MG/10 ML VIAL 4 ML INJ (11:49)
[2023-09-12] MEDS: METHYLPREDNISOLONE ACETATE 40 MG/ML VIAL INJ (11:50)
--- NOTE | 2023-09-12 14:22 | W.PM.PROCNOT ---
Date of procedure: 09/12/23 Pre-op diagnosis: Lumbar spondylosis Post-op diagnosis: same as pre-op Procedure: Left Lumbar 4/5, 5/sacral 1 Radiofrequency ablation Under fluoroscopic guidance Rhizotomy was created using radio frequency ablation at 80?C for 90 seconds 1 to 2 lesions created at each site. Post lesioning injection of 2 mL each of 0.25% Marcaine and 2% lidocaine with Depo-Medrol 40mg. 0.5 to 1 mL injected at each site IV in place no If Intravenous fluids: NS at KVO Anesthesia local 2% lidocaine for Anesthesia Other: local Timeout process compliant After informed consent obtained.Patient brought to the procedure room placed in the prone position skin overlying the area was prepped and draped in a sterile fashion using betadine. 25 gauge needle was used to create a skin wheal over each of the targeted areas utilizing 2% lidocaine. A rhizotomy needle with a 10 mm active tip was inserted over each of the anesthetized areas and directed towards each of the medial branches accomplished under fluoroscopic guidance. after encountering the same we had positive sensory stimulation, negative motor stimulation was noted. lesions were then created. Post lesioning, steroid solution was injected needles removed. Patient was transferred to recovery room in stable condition to be discharged home after meeting criteria. Anesthesia: Local Surgeon: Maine Escobar Condition: stable
== END 2023-09-12 11:55 | disposition home or self-care (01) ==
LOC: SURGOUT 10:33
PROVIDERS: PCP Internal Medicine; Visit Provider Anesthesiology Pain Medicine
DX: M47.816 Spondylosis without myelopathy or radiculopathy, lumbar region (principal)
CPT/HCPCS: 64635; 64636; J0665; J1010

== ENCOUNTER 2023-10-18 09:57 | Outpatient (OUT) | payer MEDICARE, SELFPAY ==
--- OUTSIDE RECORDS SUMMARY | 2023-10-18 10:13 | XMS_ITS | CCD ---
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 Name Role Phone Unavailable Primary Care [...] HARRIS ., DR DUC [employer] Unavailable HARIRS ., DR DUC Smith Attending Unavailable HARRIS [...] Amoxicillin; Translations: [AMOXICILLIN] Drug Allergy 2 Anaphylaxis [facility] (14 sources) NITROFURANTOIN, MACROCRYSTALS / Nitrofurantoin, Monohydrate; Translations: [NITROFURANTOIN MONOHYD/M-CRYST] Drug Allergy 2 Anaphylaxis [facility] (15 sources) Sulfonamides (Antibiotic); Translations: [SULFA (SULFONAMIDE ANTIBIOTICS)] Drug Allergy 2 Anaphylaxis [facility] (1 source) Amoxicillin Drug Allergy 1 [facility] (2 sources) Nitrofurantoin Drug Allergy 3 [facility] (2 sources) Sulfonamides (Antibiotic) Drug allergy (disorder) 3 [facility] (10 sources) Amoxicillin-Pot Clavulanate Drug allergy 6 Unknown [employer] Other (1 source) Clavulanate Drug Allergy 4 Unknown Reaction [facility] (1 source) Nitrofurantoin Drug Allergy 4 Difficulty Breathing [facility] Medications Current Medications Medication Drug Class(es) Dates [...] 12:00am docusate sodium 50 mg / sennosides, retirement 8.6 mg oral tablet (3 sources) Start: [...] w/ intructions for tid *Pick strength-form from [facility] for eRX* Dec, Not-Taking/PRN Comment on above: Take 200 mg by mouth twice daily. nabumetone 750 mg oral tablet (15 sources) Nonsteroidal Anti-inflammatory Drug Start: 05-25-2023 take 750 mg by mouth twice daily Nabumetone Active 750 MG PO Twice daily 60 May 25, 2023 10:47pm Start: 08-27-2021 End: 05-25-2023 nabumetone (RELAFEN) 750 mg tablet Vit C,X-Tf-Gvqdu-Lutein-Zeaxan (Preservision Areds-2) 250-90-40-1 mg Capsule (1 source) Start: 08-27-2021 Vit C,I-Lp-Fzgpe-Lutein-Zeaxan (Preservision Areds-2) 250-90-40-1 mg Capsule Active 1 TAB PO Twice daily August 27, 2021 12:00am 100 ml zoledronic acid 0.05 mg/ml injection (4 sources) Bisphospho ry Start: 08-27-2021 take 5 mg intravenou sly once Zoledronic Kasf-Ssxtdivm-Aagak (Reclast) 5 mg/100 mL Piggyback Active 5 [...] Comment on above: TAKE [address] 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 Tanner Madison Basophils/100 WBC (Bld) 0.7 % Normal 0.2-2.0 [facility] Comment on above: Performed By: #### C BC ####[facility] Ng[address]wincls[address] [place], [place] [id number]. Tanner Madison EO # 0.1 103/ul Normal 0.0-0.7 [facility] Comment on above: Performed By: #### C BC ####[facility] Oz[address] [place], [place] [id number]. Tanner Madison Eosinophils/100 WBC (Bld) 1.5 % Normal 0.9-7.0 [facility] Comment on above: Performed By: #### C BC ####[facility] [address] [place], [place] [address]Dr. Tanner Madison Erythrocyte distribution width (RBC) [Ratio] 13.2 % Normal 11.0-15.0 [facility] Comment on above: Performed By: #### C BC ####[facility] R[address] [place], [place] [address]Dr. Tanner Madison Hematocrit (Bld) [Volume fraction] 34.1 % Critically low 36.0-48.0 [facility] Comment on above: Performed By: #### C BC ####[facility] Mn[address] [place], [place] [address]Dr. Tanner Madison Hemoglobin (Bld) [Mass/Vol] 11.7 g/dL Critically low 12.0-16.0 [facility] Comment on above: Performed By: #### C BC ####[facility] [address] [place], [place] [address]Dr. Tanner Madison IG # 0.02 10e3/ul Normal 0.00-0.03 [facility] Comment on above: Performed By: #### C BC ####[facility] C[address] [place], [place] [address]Dr. Tanner Madison IG % 0.4 % Normal 0.0-0.5 [facility] Comment on above: Performed By: #### C BC ####[facility] [address] [place] [id number]. Tanner Madison LYMPH # 1.2 103/ul Normal 1.2-3.8 [facility] Comment on above: Performed By: #### C BC ####[facility] [address] [place] [id number]. Tanner Madison Lymphocytes/100 WBC (Bld) 25.6 % Normal 20.5-60.0 [facility] Comment on above: Performed By: #### C BC ####[facility] [address] [place] [address]Dr. Tanner Madison MANUAL DIFF REQ NO Normal [facility] Comment on above: Performed By: #### C BC ####[facility] [address] [place] [address]Dr. Tanner Madison MCH (RBC) [Entitic mass] 30.9 pg Normal 26.7-34.0 [facility] Comment on above: Performed By: #### C BC ####[facility] [address] [place] [id number]. Tanner Madison MCHC (RBC) [Mass/Vol] 34.3 g/dL Normal 29.9-35.2 [facility] Comment on above: Performed By: #### C BC ####[facility] [address]us[address]qr[address] [place] [id number] Madison MCV (RBC) [Entitic vol] 90.0 fL Normal 81.0-99.0 [facility] Comment on above: Performed By: #### C BC ####[facility] [address] [place] [id number] Madison MONO # 0.4 103/ul Normal 0.3-0.8 [facility] Comment on above: Performed By: #### C BC ####[facility] [address] [place] [id number]. Tanner Madison Monocytes/100 WBC (Bld) 7.6 % Normal 1.7-12.0 [facility] Comment on above: Performed By: #### C BC ####[facility] [address] [place] [id number]. Tanner Madison NEUT # 3.0 103/ul Normal 1.4-6.5 [facility] Comment on above: Performed By: #### C BC ####[facility] [address] [place] [phone]. Tanner Madison Neutrophils/100 WBC (Bld) 64.2 % Normal 43.0-75.0 [facility] Comment on above: Performed By: #### C BC ####[facility] [address] [place] [phone]. Tanner Madison Platelet mean volume (Bld) [Entitic vol] 8.5 fL Critically low 9.5-13.5 [facility] Comment on above: Performed By: #### C BC ####[facility] [address] [place] [id number]. Tanner Madison PLT 269 103/ul Normal 150-450 [facility] Comment on above: Performed By: #### C BC ####[facility] [address] [place] [address]Dr. Tanner Madison RBC 3.79 106/ul Critically low 4.20-5.40 [facility] Comment on above: Performed By: #### C BC ####[facility] [address] [place] [phone]. Tanner Madison WBC 4.6 103/ul Normal 4.0-11.0 [facility] Comment on above: Performed By: #### C BC ####[facility] [address] [place] [phone]. Tanner Los MG MAMM SCREEN 3D VIJAYA CADon 03-08-2022 MG MAMM SCREEN 3D VIJAYA CAD Patient: COURTNEY WHITE Exam Date: 03/08/2022 : 1950 Gender:F Ordering : DR KAR MOTA D.O. Admission #: [id number] Family : Order #: [id number] CLICK HERE TO VIEW EXAM RADIOLOGY REPORT [...] breast cancer at age 48. LOCATION: [facility] BREAST COMPOSITION: Extremely dense, which [...] Fregoso MD on 03/08/2022 at 12:18 Normal [facility] PROF CHEM 8 (BAS METB)on Anion gap [Moles/Vol] 11.0 mmol/L Normal [facility] Comment on above: Performed By: #### T TYRA BMP #### [facility] [address] [place] [address] Dr. Tanner Madison Calcium [Mass/Vol] 9.5 mg/dL Normal 8.5-10.1 [facility] Comment on above: Performed By: #### T TYRA, BMP #### [facility] [address] [place] [address] Dr. Tanner Madison Chloride [Moles/Vol] 103 mmol/L Normal 98-107 [facility] Comment on above: Performed By: #### T TYRA, BMP #### [facility] [address] [place] [address] Dr. Tanner Madison CO2 [Moles/Vol] 30.1 mmol/L Normal 21.0-32.0 [facility] Comment on above: Performed By: #### T TYRA, BMP #### [facility] [address] [place] [address] Dr. Tanner Madison Creatinine [Mass/Vol] 0.98 mg/dL Normal 0.55-1.02 [facility] Comment on above: Performed By: #### T SH, BMP #### [facility] [address] [place] [address] Dr. Tanner Madison EGFR-AF SENEGALESE >60 Normal >=60 [facility] Comment on above: Performed By: #### T SH, BMP #### [facility] [address] [place] [address] Dr. Tanner Madison EGFR-NON AF SENEGALESE 56 mL/min/1.73m2 Critically low >=60 [facility] Comment on above: Performed By: #### T SH, BMP #### [facility] [address] [place] [address] Dr. Tanner Madison Glucose [Mass/Vol] 91 mg/dL Normal 74-106 [facility] Comment on above: Performed By: #### T SH, BMP #### [facility] [address] [place] [address] Dr. Tanner Madison Potassium [Moles/Vol] 4.1 mmol/L Normal 3.5-5.1 [facility] Comment on above: Performed By: #### T SH, BMP #### [facility] [address] [place] [address] Dr. Tanner Madison Sodium [Moles/Vol] 140 mmol/L Normal 136-145 [facility] Comment on above: Performed By: #### T SH, BMP #### [facility] [address] [place] [address] Dr. Tanner Madison Urea nitrogen [Mass/Vol] 14.0 mg/dL Normal 7.0-18.0 [facility] Comment on above: Performed By: #### T SH, BMP #### [facility] [address] [place] [address] Dr. Tanner Madison Urea nitrogen/Creatinin e [Mass ratio] 14.3 mg/mg Normal [facility] Comment on above: Performed By: #### T SH, BMP #### [facility] [address] [place] [address] Dr. Tanner Madison TSHon 03-08-2022 TSH 2.659 uIU/mL Normal 0.358-3.740 [facility] Comment on above: Performed By: #### T SH, BMP #### [facility] [address] [place], [place] [address] Dr. Tanner Madison VITAMIN D 25 OHon 03-08-2022 VIT D 25-OH 63.4 ng/mL Normal [facility] Comment on above: Performed By: #### V ITAD ####[facility] [address] [place] [phone]. Tanner Madison VIT D RANGES SEE BELOW Normal [facility] Comment on above: Result Comment: <20 ng/mL Vit D deficient 20 - <30 ng/mL Vit D insufficient 30 - 100 ng/mL Vit D sufficient >100 ng/mL Potential Toxicity Performed By: #### V ITAD ####[facility] [address] [place] [address]Dr. Tanner Madison XR DEXA BONE DENSITYon 03-08 [...] by: MARTA ELIAS Date: 2022-03-08 10:52 Normal [facility] Asa 11-16-2021 SAEED Telephone (NIQ) LECOURTNEY ([id number]) 1950 F Date Time Provider Department 11/16/21 [...] Status:Closed by RAYSA RICO on 11/23/21 Normal [facility] MRI LSPINE WO CONon 11-05-19 MRI [...] MARTA ELIAS Date: 2021-11-04 06:33 Normal [facility] MRI TSPINE WO CONon 11-04-19 22 MRI [facility] WO CON EXAMINATION: MRI TSPINE WO [...] JEFF FREGOSO Date: 2021-11-03 19:07 Normal [facility] VIT D 25-OH LABCORPon 2021 Vitamin D, 25-Hydroxy 69.8 ng/mL Normal 30.0-100.0 [facility] Comment on above: Result Comment: Negar min D deficiency has been defined by the [place] of Medicine and an Endocrine Society practice guideline as a level of serum 25-OH vitamin D less than 20 ng/mL (1,2). The Endocrine Society went on to further define vitamin D insufficiency as a level between 21 and 29 ng/mL (2). 1. IOM ([place] of Medicine). 2010. Dietary reference intakes for calcium and D. [place]: The National Academies Press. 2. Mikal MF, Jayy [place], Zi MACHADO, et al. Evaluation, treatment, and prevention of vitamin D deficiency: an Endocrine Society clinical practice guideline. JCEM. 2010; 96(7):1911-30. Performed By: #### V ITADLC #### [facility] [address] [place] [address] Dr. Tanner Madison CBC AUTO DIFFon 10-28-2021 BASO # 0.0 103/ul Normal 0.0-0.1 [facility] Comment on above: Performed By: #### C BC #### [facility] [address] [place] [address] Dr. Tanner Madison Basophils/100 WBC (Bld) 0.6 % Normal 0.2-2.0 [facility] Comment on above: Performed By: #### C BC #### [facility] [address] [place] [address] Dr. Tanner Madison EO # 0.1 103/ul Normal 0.0-0.7 [facility] Comment on above: Performed By: #### C BC #### [facility] [address] [place] [address] Dr. Tanner Madison Eosinophils/100 WBC (Bld) 1.1 % Normal 0.9-7.0 [facility] Comment on above: Performed By: #### C BC #### [facility] [address] [place] [address] Dr. Tanner Madison Erythrocyte distribution width (RBC) [Ratio] 13.5 % Normal 11.0-15.0 [facility] Comment on above: Performed By: #### C BC #### [facility] [address] [place] [address] Dr. Tanner Madison Hematocrit (Bld) [Volume fraction] 31.7 % Critically low 36.0-48.0 [facility] Comment on above: Performed By: #### C BC #### [facility] [address] [place] [address] Dr. Tanner Madison Hemoglobin (Bld) [Mass/Vol] 10.8 g/dL Critically low 12.0-16.0 [facility] Comment on above: Performed By: #### C BC #### [facility] [address] [place] [address] Dr. Tanner Madison IG # 0.01 10e3/ul Normal 0.00-0.03 [facility] Comment on above: Performed By: #### C BC #### [facility] [address] [place] [address] Dr. Tanner Madison IG % 0.2 % Normal 0.0-0.5 [facility] Comment on above: Performed By: #### C BC #### [facility] [address] [place] [address] Dr. Tanner Madison LYMPH # 1.3 103/ul Normal 1.2-3.8 [facility] Comment on above: Performed By: #### C BC #### [facility] [address] [place] [address] Dr. Tanner Madison Lymphocytes/100 WBC (Bld) 24.0 % Normal 20.5-60.0 [facility] Comment on above: Performed By: #### C BC #### [facility] [address] [place] [address] Dr. Tanner Madison MANUAL DIFF REQ NO Normal [facility] Comment on above: Performed By: #### C BC #### [facility] [address] [place] [address] Dr. Tanner Madison MCH (RBC) [Entitic mass] 31.0 pg Normal 26.7-34.0 [facility] Comment on above: Performed By: #### C BC #### [facility] [address] [place] [address] Dr. Tanner Madison MCHC (RBC) [Mass/Vol] 34.1 g/dL Normal 29.9-35.2 [facility] Comment on above: Performed By: #### C BC #### [facility] [address] [place] [address] Dr. Tanner Madison MCV (RBC) [Entitic vol] 91.1 fL Normal 81.0-99.0 [facility] Comment on above: Performed By: #### C BC #### [facility] [address] [place] [address] Dr. Tanner Maidson MONO # 0.5 103/ul Normal 0.3-0.8 [facility] Comment on above: Performed By: #### C BC #### [facility] [address] [place] [address] Dr. Tanner Madison Monocytes/100 WBC (Bld) 8.3 % Normal 1.7-12.0 [facility] Comment on above: Performed By: #### C BC #### [facility] [address] [place] [address] Dr. Tanner Madison NEUT # 3.6 103/ul Normal 1.4-6.5 [facility] Comment on above: Performed By: #### C BC #### [facility] [address] [place] [address] Dr. Tanner Madison Neutrophils/100 WBC (Bld) 65.8 % Normal 43.0-75.0 [facility] Comment on above: Performed By: #### C BC #### [facility] [address] [place] [address] Dr. Tanner Madison Platelet mean volume (Bld) [Entitic vol] 8.6 fL Critically low 9.5-13.5 [facility] Comment on above: Performed By: #### C BC #### [facility] [address] [place] [address] Dr. Tanner Madison PLT 234 103/ul Normal 150-450 [facility] Comment on above: Performed By: #### C BC #### [facility] [address] [place] [address] Dr. Tanner Madison RBC 3.48 106/ul Critically low 4.20-5.40 [facility] Comment on above: Performed By: #### C BC #### [facility] [address] [place] [address] [address] Tanner Madison WBC 5.4 103/ul Normal 4.0-11.0 [facility] Comment on above: Performed By: #### C BC #### [facility] [address] [place] [address] [address] Tanner Madison PROF CHEM 8 (BAS METB)on Anion gap [Moles/Vol] 12.7 mmol/L Normal [facility] Comment on above: Performed By: #### B MP ####[facility] [address] [place] [address]DrAryan Madison Calcium [Mass/Vol] 9.2 mg/dL Normal 8.5-10.1 [facility] Comment on above: Performed By: #### B MP ####[facility] [address] [place] [address]Dr. Tanner Madison Chloride [Moles/Vol] 102 mmol/L Normal 98-107 [facility] Comment on above: Performed By: #### B MP ####[facility] [address] [place] [address]Dr. Tanner Madison CO2 [Moles/Vol] 30.4 mmol/L Normal 21.0-32.0 [facility] Comment on above: Performed By: #### B MP ####[facility] [address] [place] [address]Dr. Tanner Madison Creatinine [Mass/Vol] 1.07 mg/dL Critically high 0.55-1.02 [facility] Comment on above: Performed By: #### B MP ####[facility] [address] [place] [address]DrAryan Madison EGFR-AF SENEGALESE >60 Normal >=60 [facility] Comment on above: Performed By: #### B MP ####[facility] [address] [place] [address]DrAryan Madison EGFR-NON AF SENEGALESE 50 mL/min/1.73m2 Critically low >=60 [facility] Comment on above: Performed By: #### B MP ####[facility] [address] [place] [address]Dr. Tanner Madison Glucose [Mass/Vol] 99 mg/dL Normal 74-106 [facility] Comment on above: Performed By: #### B MP ####[facility] [address] [place] [id number]. Tanner Madison Potassium [Moles/Vol] 4.1 mmol/L Normal 3.5-5.1 [facility] Comment on above: Performed By: #### B MP ####[facility] [address] [place] [address]Dr. Tanner Madison Sodium [Moles/Vol] 141 mmol/L Normal 136-145 [facility] Comment on above: Performed By: #### B MP ####[facility] [address] [place] [address]Dr. Tanner Madison Urea nitrogen [Mass/Vol] 16.0 mg/dL Normal 7.0-18.0 [facility] Comment on above: Performed By: #### B MP ####[facility] [address] [place] [address]Dr. Tanner Madison Urea nitrogen/Creatinin e [Mass ratio] 15.0 mg/mg Normal [facility] Comment on above: Performed By: #### B MP ####[facility] [address] [place] [address]Dr. Tanner Los LOBOOVon 10-15-2021 CNOV Office Visit (SPNMMN ) COURTNEY WHITE ([id number]) 1950 F Date Time Provider Department 10/15/21 2:00 PM ANCELMO SANDOVAL [facility] During your visit today, we recorded [...] short period (more content not included)... Normal [facility] XR SCOLIOSIS 2V PA STAND/LAT on [...] abnormality. IMPRESSION: Thoracolumbar scoliosis and degenerative changes. Virology Teacher: BLANE Transcribe Date/Time: Oct 15 2021 2:52P Dictated by : CHETNA HERNANDEZ MD This examination was interpreted and the report reviewed and electronically signed by: CHETNA HERNANDEZ MD on Oct 15 2021 2:54PM EST [id number] Normal [facility] XR SCOLIOSIS PA STAND/LAT 2V on 10-15-2021 [facility] 08-27-2021 L - -------- Specimen: [id number] Received: 08/27/21 Status: ELIZABETHGil Garcia Num: [id number] Spec Type: Surgical Subm Dr: Will Ma MD Tissues: A Gastric Biopsy (GASTRIC BXS) Procedures: HE Stain/2, Gross/Micro L4 -------- Patient Age/Sex Location Account Attending Physician -------- Courtney White 70/F [id number] Will Ma MD -------- SPEC NUM: [id number] RECD: 08/27/21 STATUS: VINOD GARCIA NUM: [id number] JHONNY: 08/27/21- [facility] DR: Will Ma MD ENTERED: 08/27/[address] [facility] DR: SON TYPE: Surgical DEPT: S ORDERED: [...] microscopic findings support the above pathologic diagnosis. [id number] -------- -------- Specimen: [id number] Received: 08/27/21 Status: VINOD Radha Num: [id number] Spec Type: Surgical Subm Dr: Will Ma MD Tissues: A Gastric Biopsy (GASTRIC BXS) Procedures: HE Stain/2, Gross/Micro L4 -------- Patient: Courtney White [id number] (Continued) -------- Signed (signature on file) Nisreen Marquez MD 08/31/21 0143 [facility] SARS-CoV-2 (COVID-19) RNA JEFFRY+probe Ql (Unsp spec) Negative Normal Negative [facility] Comment on above: Order Comment: Healt hcare Worker?: N Result Comment: Testing for SARS-CoV-2 by RT-PCR This test was developed and its performance characteristics determined by [employer] and validated at the [facility]. This test has not been FDA cleared [...] is terminated or revoked sooner. PERFORMED BY: [place] [address] PATHOLOGIST [employer]NER NISREEN MARQUEZ M.D. Performed By: #### C OVID 19 [facility] #### [address] Vital Signs Date Time Vital Sign Value Performing Clinician Facility 08-03-2023 10:08040 Body height 160.02 cm [facility] 08-03-2023 10:08040 Body mass index (BMI) [Ratio] 19.7 kg/m2 [facility] 08-03-2023 10:08040 Body weight 50.57 kg [facility] 08-03-2023 10:08-0400 Diastolic blood pressure 81 mm[Hg] [facility] 08-03-2023 10:08-0400 Heart rate 70 /min [facility] 08-03-2023 10:08-0400 Respiratory rate 12 /min [facility] 08-03-2023 10:08-040 Systolic blood pressure 150 mm[Hg] [facility] 09-26-2022 10:30-0400 Body height 160.02 cm Kar Ball Other [employer] Other 09-26-2022 10:30-0400 Body mass index (BMI) [Ratio] 19.31 kg/m2 Kar Ball Other [employer] Other 09-26-2022 10:30-0400 Body weight 49.44 kg Kar Ball Other [employer] Other 09-26-2022 10:30-0400 Diastolic blood pressure 75 mm[Hg] Kar Ball Other [employer] Other 09-26-2022 10:30-0400 Respiratory rate 12 /min Kar Ball Other [employer] Other 09-26-2022 10:30-0400 Systolic blood pressure 166 mm[Hg] Kar Ball Other [employer] Other 02-01-2022 10:22-0500 Body height 160 cm Wellington Hong MD Work Phone: [facility] 02-01-2022 10:22-0500 Body weight 49.9 kg Wellington Hong MD Work Phone: [facility] 02-01-2022 10:22-0500 Diastolic blood pressure 76 mm[Hg] Wellington Hong MD Work Phone: [facility] 02-01-2022 10:22-0500 Heart rate 71 /min Wellington Hong MD Work Phone: [facility] 02-01-2022 10:22-0500 Respiratory rate 14 /min Wellington Hong MD Work Phone: [facility] 02-01-2022 10:22-0500 SaO2% (BldA) [Mass fraction] 98 % Wellington Hong MD Work Phone: [facility] 02-01-2022 10:22-0500 Systolic blood pressure 168 mm[Hg] Wellington Hong MD Work Phone: [facility] Encounters Encounter Date Encounter Type Care Provider Facility Start: 08-03-2023 End: 08-03-[address] [facility] Work Phone: Start: 08-03-2023 End: 08-03-2023 Patient encounter procedure [facility] Work Phone: Start: 07-19-2023 Non-patient / Non-visit [facility] Work Phone: Start: 03-27-2023 End: 03-27-2023 ambulatory Kar Ball Other [employer] Other Start: 03-27-2023 Office outpatient vi sit 15 minutes Kar Mota [facility] Start: 03-27-2023 Telephone encounter Kar Ball [facility] Start: 01-23-2023 End: 01-23-2023 ambulatory Kar Nakul Other [employer] Other Start: 01-23-2023 Telephone encounter Kar Mota [facility] Start: 11-29-2022 End: 11-29-2022 ambulatory Kar Ball Other [employer] Other Start: 11-29-2022 Telephone encounter Kar Ball [facility] Start: 11-28-2022 End: 11-28-2022 ambulatory Kar Ball Other [employer] Other Start: 11-28-2022 Nursing evaluation o f patient and report Kar Mota [facility] Start: 11-28-2022 Telephone encounter Kar Ball [facility] Start: 10-04-2022 End: 10-04-2022 ambulatory Kar Ball Other [employer] Other Start: 10-04-2022 Telephone encounter Kar Ball [facility] Start: 09-26-2022 End: 09-26-2022 ambulatory Kar Mota Other [employer] Other Start: 09-26-2022 Office outpatient vi sit 15 minutes Kar Mota [facility] Start: 07-14-[address] MANJULA MARCIAL Facil ity:[facility] Start: 05-02-2022 End: 05-03-[address] MANJULA MARCIAL Facility:[facility] Start: 03-08-2022 End: 03-09-[address] MANJULA MARCIAL Facility:[facility] Start: 03-02-2022 End: 03-03-[address] MANJULA MARCIAL Facility:[facility] Start: 02-15-2022 Adult health examination Chris Mota Other [employer] Other Start: 02-01-2022 End: 02-01-2022 ambulatory ANCELMO SANDOVAL Facility:[facility] Start: 02-01-2022 End: 02-01-2022 Patient encounter procedure Wellington Hong MD Work Phone: [facility] Comment on above: Encounter for screen ing [...] Start: 10-15-2021 End: 10-15-2021 ambulatory ANCELMO SANDOVAL Facility:[facility] Start: 10-15-2021 End: 10-15-2021 Subsequent hospital [...] 02-27-2022 ADVANCE DIRECTIVE DISCUSSION ADVANCE DIRECTIVE DISCUSSION [facility] Start: 02-27-2022 DEPRESSION ASSESSMENT DEPRESSION ASS ESSMENT [facility] Start: 10-28-2021 Influenza vaccination INFLUENZA (#1) [facility] Start: 07-25-2021 COVID-19 VACCINE (5 - Booster for Pfizer series) COVID-19 VACCINE (5 - Booster for Pfizer series) [facility] Start: 02-27-2021 ADVANCE DIRECTIVE DISCUSSION ADVANCE DIRECTIVE DISCUSSION [facility] Start: 02-27-2021 DEPRESSION ASSESSMENT DEPRESSION ASS ESSMENT [facility] Start: 2013 BONE DENSITY BONE DENSITY [facility] Start: 2013 PNEUMOCOCCAL: 65+ (1 - PCV) PNEUMOCOCCAL: 65+ (1 - PCV) [facility] Start: 1998 SHINGRIX VACCINE (1 of 2) SHINGRIX VACCINE (1 of 2) [facility] Start: 1993 COLOGUARD (FIT-DNA) COLOGUARD (FIT-D NA) [facility] Start: 1993 Colonoscopy COLONOSCOPY [facility] Start: 1993 COLORECTAL CANCER SCREENING COLORECTAL CANCER SCREENING [facility] Start: [address] COLONOGRAPHY [facility] Start: 1993 DIABETES SCREEN DIABETES SCREEN [facility] Start: 1993 FECAL OCCULT BLOOD FECAL OCCULT BLOO D [facility] Start: 1993 LIPID SCREEN LIPID SCREEN [facility] Start: 1993 SIGMOIDOSCOPY SIGMOIDOSCOPY [facility] Start: 1988 Mammography MAMMOGRAM [facility] Start: 11-13-1967 Urine microalbumin profile DTAP,TDAP,TD (1 - Tdap) [facility] Start: 1966 HEPATITIS C SCREENING HEPATITIS C SC JORDIMAHSA [facility] Start: 1960 Adult depression screening assessment DEPRESSION SCREENING [facility] Comprehensive metabo lic 2000 panel - Serum or Plasma [facility] End: 03-03-2023 DXA-AXIAL SKELETON DXA-AXIAL SKELETON Radiology Routine Encounter for screening for osteoporosis 1 Occurrences starting 02/01/2022 until 03/03/2023 [facility] Work Phone: Comment on above: 1 Occurrences starti ng 02/01/2022 until 03/03/2023 [facility] Immunizations Immunization Date Immunization Notes Care Provider Fa cility 11-28-2022 influenza virus vaccine, unspecified formulation [facility] 11-28-2022 influenza, high dose seasonal, preservative-free Kar Mota Other [facility] Other 11-26-2021 influenza virus vaccine, split virus (incl. purified surface antigen) Kar Mota Other [facility] Other 11-26-2021 influenza virus vaccine, unspecified formulation [facility] 05-30-2021 COVID-19 Vaccine Pfi zer - Documentation Purposes Only Kar Mota Other [facility] 12-04-2020 influenza virus vaccine, split virus (incl. purified surface antigen) Kar Mota Other [facility] Other 12-04-2020 influenza virus vaccine, unspecified formulation [facility] 11-22-2020 COVID-19 Vaccine Pfi zer - Documentation Purposes Only Kar Mota Other [facility] 04-18-2020 COVID-19 Vaccine Pfi zer - Documentation Purposes Only Kar Mota Other [facility] 03-28-2020 COVID-19 mRNA, Comirnaty (Pfizer) [facility] 03-28-2020 COVID-19 Vaccine Moderna - Documentation Purposes Only Kar Nakul Other [facility] 11-07-2019 influenza virus vaccine, split virus (incl. purified surface antigen) Kar Mota Other [employer] Other 11-07-2019 influenza virus vaccine, unspecified formulation [facility] 11-26-2018 influenza virus vaccine, split virus (incl. purified surface antigen) Kar Nakul Other [employer] Other 11-26-2018 influenza virus vaccine, unspecified formulation [facility] 12-07-2017 influenza virus vaccine, split virus (incl. purified surface antigen) Kar Mota Other [employer] Other 12-07-2017 influenza virus vaccine, unspecified formulation [facility] 12-19-2016 influenza virus vaccine, split virus (incl. purified surface antigen) Kar Nakul Other [employer] Other 12-19-2016 influenza virus vaccine, unspecified formulation [facility] 12-01-2015 influenza virus vaccine, split virus (incl. purified surface antigen) Kar Mota Other [employer] Other 12-01-2015 influenza virus vaccine, unspecified formulation [facility] 05-15-2015 pneumococcal conjuga te vaccine, 13 valent Kar Mota Other [facility] 12-10-2014 influenza virus vaccine, split virus (incl. purified surface antigen) Kar Mota Other [employer] Other 12-10-2014 influenza virus vaccine, unspecified formulation [facility] 12-18-2013 tetanus and diphther ia toxoids, adsorbed, preservative free, for adult use (5 Lf of tetanus toxoid and 2 Lf of diphtheria toxoid) Kar Mota Other [facility] 2013 pneumococcal polysaccharide vaccine, 23 valent Kar Mota Other [facility] 12-17-2012 tetanus and diphther ia toxoids, adsorbed, preservative free, for adult use (5 Lf of tetanus toxoid and 2 Lf of diphtheria toxoid) Kar Mota Other [facility] Payers Date Payer Category Payer Medicare HUMANA MEDICARE HU[employer]NA MEDICARE PPO [id number] 2017-Present [phone] [address] [address] [place] [address] PPO [id number] 1961 Medicare [id number] 1950 Unknown [id number] 1950 Unknown [id number] 1948 Unknown [id number] 1948 Unknown [id number] 1948 Unknown [id number] 1948 Unknown [id number] [id number] 1948 Unknown [id number] 1948 Unknown [id number] [id number] 1948 Unknown [id number] 1948 Unknown [id number] 1948 Unknown [id number] Self-pay Self Pay [id number] Social History Date Type Detail Facility Start: 08-27-2021 End: 10-15-2021 Tobacco smoking status NHIS Ex-smoker [facility] History of tobacco use Current smoker [facility] History of tobacco use Cigarette Smoker [facility] Start: 10-15-2021 Tobacco use and exposure Smokeless tobacco non-user [facility] Start: 10-15-2021 End: 02-01-2022 Alcohol intake Lifetime non-drinker (finding) [facility] Start: 1950 Sex Assigned At Not on file C [facility] Start: 10-05-2021 End: 10-15-2021 Exposure to SARS-CoV-2 (event) Not sure [facility] Sex Assigned At Sex Assigned At Bir th [employer] Other Start: 1950 Sex Assigned At Female F [facility] Clinical Notes 10-15-2021 to 03-27-2023 Note Date [...] increased frequency > 3/24 hours and watery [employer] Other 11-27-2023 Evaluation note* Encounter Date Diagnosis Assessment Notes Treatment Notes Treatment Clinical Notes Dec, Pain in thoracic spine (ICD-10 - M54.6) [employer] Other 10-02-2023 Evaluation note* Encounter Date Diagnosis Assessment Notes Treatment Notes Treatment Clinical Notes Nov, Lumbar spondylosis (ICD-10 - M47.816) [employer] Other 07-31-2023 Evaluation note* Encounter Date Diagnosis [...] but may cause increased bloating. [employer] Other 07-31-2023 Evaluation note* Encounter Date Diagnosis [...] but may cause increased bloating. [employer] [facility] [employer] Other 12-06-2022 NoteHNO ID: [id number] Author: Wellington Hong MD Service: ? Author [...] information obtained and documented by the physician sales support assistant. I examined the patient and evaluated [...] when sitting. No partha (more content not included)...[facility]12-06-2022 Instructions* Patient Instructions* Ancelmo Sandoval PA-C [...] your usual activities immediately. [facility] History of Present illness Narrative* Wellington Hong [...] information obtained and documented by the physician sales support assistant. I examined the patient and evaluated [...] Past Histories independently gathered by the clinical practice support specialist and the remaining scribed note accurately describes my personal service to the patient. Wellington Hong MD documented in this encounterSum[facility]-2022 NoteCONSULTATION CONSULTATION DATE: 01/18/2022 CHIEF COMPLAINT: Low [...] appointment to see a spinal surgeon at [facility] in the near future. PHYSICAL EXAM: Upon [...] We shall await the patient's evaluation with [facility]. Subsequent to that, we will make a [...] this in February, given her 's illness.[facility] [id number] Note CONSULTATION PROCEDURE DATE: 12/21/2021 CHIEF COMPLAINT: [...] has responded well to this treatment. [facility] [id number] NoteCONSULTATION CONSULTATION DATE: 11/30/2021 CHIEF COMPLAINT: Low [...] annually. The patient has been seen by [facility] with regards to the possibility of [...] was encouraged to maintain the communication with [facility] to see whether other options are available. We will repeat the testosterone cypionate on her return visit. The patient understands and would like to proceed. CC: Manjula Marcila M.D.[facility] [id number] NoteCONSULTATION PROCEDURE DATE: 11/23/2021 PREOPERATIVE DIAGNOSIS: Lumbar [...] try to attain a neutral posture laterally.[facility] [id number] NoteCONSULTATION CONSULTATION DATE: 11/23/2021 CHIEF COMPLAINT: Left leg pain, low back pain. HISTORY OF PRESENT ILLNESS: This is a very pleasant, 71-year-old female who is known to the [facility]. The patient has an MRI of her lumbar spine, CT of the thoracic and CT of the lumbar spine. The patient has severe rotoscoliosis. The patient was seen at the [facility]. The patient states she is functioning [...] like to proceed. CC: Manjula Marcial M.D.[facility] [id number] Miscellaneous Notes* Telephone Encounter - Cesilia Adler - 11/16/2021 1:46 PM EDT Received the following record(s) via fax. -MRI tspine wo(report) Date 11/03/21 Record(s) scanned into pt's chart. Cesilia Adler Images requested documented in this encounterSumma [facility]09-07-2022 NotePROCEDURE: CT TSPINE WO CON, CT LSPINE [...] Electronically authenticated by: JEFF FREGOSO Date: 2021-11-03 18:57[facility]09-07-2022 NotePROCEDURE: CT TSPINE WO CON, CT [...] Electronically authenticated by: JEFF FREGOSO Date: 2021-11-03 18:57[facility]08-19-2022 NoteHNO ID: [id number] Author: Ancelmo Sandoval PA-C Service: ? Author Type: Physician Cokeman Type: Progress Notes Filed: 10/18/2021 8:52 AM [...] neuromuscular referral to (more content not included)... [facility] note* Diagnosis Scoliosis of thoracolumbar spine, unspecified scoliosis type documented in this encounter [facility] note* Diagnosis Encounter for screening for osteoporosis- Primary Special screening for osteoporosis documented in this encounter [facility] noteNo [facility] Other Evaluation note* Diagnosis Onset Date Resolution Status Chronic kidney disease acute Elevated BP without diagnosis of hypertension acute VALDEZ (generalized anxiety disorder) acute GERD (gastroesophageal reflux disease) acute 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 Medicare annual wellness visit, subsequent noneactive Screening mammogram for breast cancer noneactive [facility] Work Phone: History general Narrative - Reported* [...] Colonoscopy 2021 Hospitalization History SEE SURGICAL HX [place] Other Reason for referral (narrative)* Diagnostic Procedure Only (Routine) - Closed Specialty Diagnoses / Procedures Referred By Mouna t Referred To Contact XR IMAGING Diagnoses Scoliosis of thoracolumbar spine, unspecified scoliosis type Procedures XR SCOLIOSIS PA STAND/LAT 2V RADEX ENTIR THRC LMBR CRV SAC SPI W/SKULL 2/3 VW Ancelmo Sandoval PA-C [address] [place] [address] Xr Imaging Referral ID Status Reason Start Date Expiration Date V isits Requested Visits Authorized [id number] Closed Auto-Generate d Referral 10/15/2021 11/14/2022 1 1 [facility] for visit Narrative* Diagnostic Procedure Only (Routine) - Closed Specialty Diagnoses / Procedures Referred By Contac t Referred To Contact XR IMAGING Diagnoses Scoliosis of thoracolumbar spine, unspecified scoliosis type Procedures XR SCOLIOSIS PA STAND/LAT 2V RADEX ENTIR THRC LMBR CRV SAC SPI W/SKULL 2/3 VW Ancelmo Sandoval PA-C [address] [place] [address] Xr Imaging Referral ID Status Reason Start Date Expiration Date V isits Requested Visits Authorized [id number] Closed Auto-Generate d Referral 10/15/2021 11/14/2022 1 1 [facility] Summary Purpose Family History Relationship Condition Age [...] section and content) DATE CREATED AUTHOR 09/02/2021 [facility] DATE CREATED AUTHOR AUTHOR'S ORGANIZ ATION 03/07/2022 [facility] DATE CREATED AUTHOR AUTHOR'S ORGANIZ ATION 07/13/2022 [facility] Comments (unrecognize d section and content) In the event this informatio n is protected by the Federal Confidentiality of Alcohol and Drug Abuse Patient Records regulations: The Federal rules restrict any use of the information to criminally investigate or prosecute any alcohol or drug abuse patient.[facility] CampusIn the event this information is protected by the Federal Confidentiality of Alcohol and Drug Abuse Patient Records regulations: The Federal rules restrict any use of the information to criminally investigate or prosecute any alcohol or drug abuse patient.[facility] CampusIn the event this information is protected by the Federal Confidentiality of Alcohol and Drug Abuse Patient Records regulations: The Federal rules restrict any use of the information to criminally investigate or prosecute any alcohol or drug abuse patient.[facility] Reason for Visit (unrecogniz ed section and [...] BE BASED ON THE PRIMARY CLINICAL RECORDS. [employer] [facility]. provides no warranty or guarantee of the accuracy or completeness of information in this document.
--- NOTE | 2023-10-18 10:25 | P.CN_ITS ---
Consult Note: HPI Data of Consult Patient: known to practice within the last 3 years Requesting Physician: Hiwot Irving NP Primary Care Provider: Kar Mota, DO Consult Narrative Reason for consult: f/u Narrative: Courtney dougherty pleasant 71 year old female presents for evaluation of chronic low back pain, today 04/08, increasing to /. Patient feels current medication regimen is beneficial, most days pain mild to moderate, improved with proper posture and rest.. 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 Recent left and right L4/5 L5/S1 providing significant relief for right low back pain, however patient reports no relief from left sided low back pain. cc:: CC: Hiwot Irving NP Review of Systems 2 ROS0 Status of ROS 10 or more systems reviewed and unremark able except as noted in history and below Musculoskeletal Reports: back pain PFSH PFSH Medical History Rheumatoid arthritis ?M06.9 - Rheumatoid arthritis, unspecified (ICD-10) Low back pain ?M54.50 - Low back pain, unspecified (ICD-10) Family history of psychiatric condition ?Z81.8 - Family history of other mental and behavioral disorders (ICD-10) Former smoker ?Z87.891 - Personal history of nicotine dependence (ICD-10) Surgical History History of dilatation and curettage ?Z98.890 - Other specified postprocedural states (ICD-10) Meds Home Medications and Allergies Home Medications ?Medication ?Instructions ?Recorded ?Confirmed ?Type acetaminophen 325 mg tablet (Aphen) 325 mg PO Q6H PRN pain 08/09/22 09/12/23 History ddvklvj-F1-xhm-I3-G93-hmqqhoxexyhw tab PO .QD 08/09/22 History 500 mg-200 unit-50 mg-1.2 mg tablet nabumetone 750 mg tablet 750 mg PO BID 08/09/22 09/12/23 History vitamins A,C,K-jico-mqzqbx 2,148 2 tab PO BID 08/09/22 09/12/23 History mcg-113 mg-45 mg-17.4 mg tablet (Eye Multivitamin) zoledronic acid 5 mg/100 mL in ea IV .YEARLY 08/09/22 History mannitol 5 %-water intravenous piggybck (Reclast) gabapentin 08/16/22 History baclofen 10 mg tablet 10 mg PO DAILY #30 tabs 11/02/22 09/12/23 Rx Allergies Allergy/AdvReac Type Severity Reaction Status Date / Time amoxicillin Allergy Hives Verified 09/12/23 10:52 nitrofurantoin Allergy Hives Verified 09/12/23 10:52 [From Macrobid] Sulfa (Sulfonamide Allergy Hives Verified 09/12/23 10:52 Antibiotics) Exam Constitutional Documenting provider has reviewed patient's vital signs: yes Common normals: no apparent distress, oriented x3, healthy appearing, alert and well nourished General appearance: cooperative HENMT Common normals: normocephalic, hearing grossly normal bilaterally and moist oral mucous membranes Head and scalp: normocephalic Eye Common normals: PERRL Pupil: PERRL Neck & C-Spine Common normals: full ROM General: normal visual inspection Chest Common normals: inspection of chest normal Respiratory Common normals: normal respiratory effort, no retractions and no use of accessory muscles Back & Pelvis Lumbar spine/lower back: ROM limited, pain with ROM and lumbar scoliosis present Sacroiliac joints: SI joint(s) abnormal Other: left SIJ positive cosmo(patricks), gaenslens, thigh thrust, compression test significant pain with palpation of left ischial bursa Back image (female): 2 1. Extremity Common normals: normal to inspection and full ROM Neuro Common normals: oriented x3, CN's II-XII intact bilaterally, moves all extremities, no focal motor deficits, no sensory deficits noted, deep tendon reflexes 2+ bilaterally and gait normal Sensorium/orientation: alert Motor exam: strength 5/5 throughout and no movement abnormalities noted Psych Common normals: mental status grossly normal, thought process normal, cooperative, affect normal, speech normal and activity/motor behavior normal Speech: normal speech Thought process: normal thought process Assessment and Plan Assessment and Plan (1) Ischial bursitis of left side: (2) Lumbar spondylosis: (3) Myofascial pain: (4) Scoliosis: (5) Rheumatoid arthritis: (6) Low back pain: Plan refer to Dr Varela for assessment of left ischial bursitis, failed NSAIDs continue current medication regimen, finds benefit without side effects f/u 3 months, sooner if needed
== END 2023-10-18 09:58 | disposition home or self-care (01) ==
LOC: PM 09:58
PROVIDERS: PCP Internal Medicine; Visit Provider Nurse Practitioner
DX: M70.72 Other bursitis of hip, left hip (principal); M47.816 Spondylosis without myelopathy or radiculopathy, lumbar region; M79.18 Myalgia, other site; M41.9 Scoliosis, unspecified; M06.9 Rheumatoid arthritis, unspecified; M54.50 Low back pain, unspecified
CPT/HCPCS: G0463

== ENCOUNTER 2023-11-20 11:05 | Outpatient (OUT) | payer MEDICARE, SELFPAY ==
--- NOTE | 2023-11-20 | XR_ITS ---
The [address] [address] Patient Name: KIMBERLY LUJAN MRN: [id number] date: 1950 Sex: F Assigned Patient Location: Current Patient Location: Accession/Order Number: [id number] Exam Date: 11/20/2023 11:09 Report Date: 11/22/2023 09:27 At the request of: MARTA GAONA Procedure: XR hip RT 2V w/ pelvis PROCEDURE: XR hip RT 2V w/ pelvis HISTORY: RIGHT HIP AND PELVIS PAIN COMPARISON: None. FINDINGS: BONES:No fracture, acute abnormality, or significant arthropathy. SOFT TISSUES:No visible soft tissue swelling. EFFUSION:None visible. OTHER: Disc space narrowing L4-5, L5-S1. XR/XR hip RT 2V w/ pelvis IMPRESSION: 1. No acute or suspicious bone abnormality. 2. Minimal degenerative joint disease. 3. Degenerative disc disease of the visible lower lumbar spine. Electronically authenticated by: MARTA ELIAS Date: 11/22/2023 09:27
--- OUTSIDE RECORDS SUMMARY | 2023-11-20 11:22 | XMS_ITS | CCD ---
Author Organization [facility] CliniSyri Care Team Providers Care Delinquency Counselor Name Role Phone Unavailable Primary Care Provider [...] Allergy Type Date of Onset Reaction(s) Facility (6 sources) Amoxicillin; Translations: [AMOXICILLIN] Drug Allergy 2 Anaphylaxis [facility] (14 sources) NITROFURANTOIN, MACROCRYSTALS / Nitrofurantoin, Monohydrate; Translations: [NITROFURANTOIN MONOHYD/M-CRYST] Drug Allergy 2 Anaphylaxis [facility] (16 sources) Sulfonamides (Antibiotic); Translations: [SULFA (SULFONAMIDE ANTIBIOTICS)] Drug Allergy 2 Anaphylaxis [facility] (1 source) Amoxicillin Drug Allergy 1 [facility] (2 sources) Nitrofurantoin Drug Allergy 3 [facility] (2 sources) Sulfonamides (Antibiotic) Drug allergy (disorder) 3 [facility] (10 sources) Amoxicillin-Pot Clavulanate Drug allergy 6 Unknown Index Other (2 sources) Clavulanate Drug Allergy 4 Unknown Reaction [facility] (2 sources) Nitrofurantoin Drug Allergy 4 Difficulty Breathing [facility] Medications Current Medications Medication Drug Class(es) Dates Sig (Normalized) Sig (Original) acetaminophen 500 mg oral tablet (2 sources) Start: 08-27-2021 Acetaminophen (Acetaminophen Extra Strength) 500 mg Tablet Active 500 MG PO As Directed August 27, 2021 12:00am azithromycin 250 mg oral tablet (2 sources) Macrolide Antimicrobial Start: 03-27-2023 Azithromycin 250 MG as directed Orally daily for 5 days Feb, Active baclofen 10 mg oral tablet (15 sources) gamma-Aminobutyric Acid-ergic Agonist Start: 08-21-2018 take 10 mg by mouth once daily at bedtime Baclofen Active 10 MG PO Daily at bedtime August 27, 2021 12:00am Comment on above: Take 10 mg by mouth daily at bedtime. calcium carbonate 1500 mg / cholecalciferol 200 unt oral tablet (2 sources) Vitamin D Start: 08-27-2021 take 1 tablet by mouth twice daily Calcium Carbonate-Vitamin D3 (Calcium + D) 600 mg-5 mcg (200 unit) Tablet Active 1 TAB PO Twice daily August 27, 2021 12:00am docusate sodium 50 mg / sennosides, penitentiary 8.6 mg oral tablet (3 sources) Start: 12-26-2022 take 8.6-50 mg by mouth once daily in the evening as needed Senokot S 8.6-50 MG 1 tablet as needed Orally q evening for 30 days Nov, Active gabapentin 100 mg oral capsule (20 sources) Anti-epileptic Agent Start: 08-28-2023 End: 11-13-2023 take 200 mg by mouth twice daily Gabapentin Active 200 MG PO Twice daily 360 90 November 13, 2023 1:52pm Start: 08-18-2023 End: 08-28-2023 take 2 capsules by mouth twice daily Gabapentin Discontinued 0 .ROUTE .COMPLEX 360 August 18, 2023 1:08pm August 28, 2023 12:22pm TAKE 2 CAPSULES BY MOUTH TWICE A DAY Start: 07-19-2023 End: 08-18-2023 take 200 mg by mouth twice daily Gabapentin Discontinu ed 200 MG PO Twice daily 120 30 July 19, 2023 11:03am August 18, 2023 1:08pm Start: 09-27-2021 take 2 capsules by m outh every twelve hours Gabapentin 100 MG 2 capsules Orally bid for 30 days Aug, Active Start: 08-27-2021 End: 07-19-2023 take 100 mg by mouth twice daily Gabapentin Discontinu ed 100 MG PO Twice daily August 27, 2021 12:00am July 19, 2023 10:39am Comment on above: Take 200 mg by mouth twice daily. nabumetone 750 mg oral tablet (18 sources) Nonsteroidal Anti-inflammatory Drug Start: 08-28-19 End: 11-13-19 take 750 mg by mouth twice daily Nabumetone Active 750 MG PO Twice daily 180 90 November 13, 2023 1:51pm omeprazole 40 mg delayed release oral capsule (5 sources) Proton Pump Inhibitor Start: 08-28-19 take 40 mg by mouth twice daily Omeprazole Active 40 MG PO Twice daily 168 84 August 27, 2021 12:00am Comment on above: TAKE 1 CAPSULE BY [facility] 2 TIMES DAILY FOR 12 WEEKS Vit C,Z-Up-Uffah-Lutei n-Zeaxan (Preservision Areds-2) 250-90-40-1 mg Capsule (2 sources) Start: 08-28-19 Vit C,F-Qx-Pzros-Lute in-Zeaxan (Preservision Areds-2) 250-90-40-1 mg Capsule Active 1 TAB PO Twice daily August 27, 2021 12:00am 100 ml zoledronic acid 0.05 mg/ml injection (5 sources) Bisphosphonate Start: 08-28-19 take 5 mg intravenously once Zoledronic Cfee-Urnvovhg-Msm er (Reclast) 5 mg/100 mL Piggyback Active 5 MG IV Once August 27, 2021 12:00am zoledronic acid (RECLAST) 5 mg/100 mL pgbk PREMIX piggyback Inject 5 mg intravenously every year. 0 Active Comment on above: Inject 5 mg intraven ously every year. Completed/Discontinued Medications Medication Drug Class(es) Dates Sig (Normalized) Sig (Original) vit A/vit C/vit E/zinc/copper (PRESERVISION AREDS ORAL) [...] to other specified organisms Episodic Anxiety disorders (10 sources) Generalized anxiety disorder; Translations: [Generalized anxiety disorder] 08-01-2023 Chronic Chronic kidney disease (3 sources) Chronic kidney disease; Translations: [Chronic kidney disease, unspecified] 08-03-2023 Chronic Conditions associated with dizziness or vertigo (14 sources) Benign paroxysmal positional vertigo; Translations: [Benign paroxysmal vertigo, unspecified ear] Onset: 4 Episodic Deficiency and other anemia (9 sources) Anemia; Translations: [Anemia, unspecified] 08-03-2023 Episodic Esophageal disorders (3 sources) Gastroesophageal reflux disease; Translations: [Gastro-esophageal reflux [...] sources) Osteoarthritis; Translations: [Polyosteoarthritis, unspecified] Chronic Osteoporosis (19 sources) Age-related osteoporosis without current pathological fracture; [...] of thoracolumbar region] Chronic Other acquired deformities (3 sources) Other secondary scoliosis, site unspecified; 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] 08-01-2023 Chronic Other aftercare (2 sources) Other jail (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; Translations: [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] Onset: 2 Episodic Other aftercare (6 sources) Long-term current use of drug therapy; Translations: [Other jail (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] Episodic Other bone disease and musculoskeletal deformities (7 sources) Bone density finding; Translations: [Other specified disorders of bone density and structure, unspecified site] Episodic Other circulatory disease (2 sources) Elevated blood-pressure reading without diagnosis of hypertension; [...] BASO # 0.0 103/ul Normal 0.0-0.1 [facility] Comment on above: Performed By: #### C BC ####[facility] [address] [place] [address]Dr. Tanner Madison Basophils/100 WBC (Bld) 0.7 % Normal 0.2-2.0 [facility] Comment on above: Performed By: #### C BC ####[facility] [address] [place], [place] [address]Dr. Virginiasunita Los EO # 0.1 103/ul Normal 0.0-0.7 [facility] Comment on above: Performed By: #### C BC ####[facility] [address] [place], [place] [address]Dr. Tanner Madison Eosinophils/100 WBC (Bld) 1.5 % Normal 0.9-7.0 [facility] Comment on above: Performed By: #### C BC ####[facility] [address] [place], [place] [address]Dr. Tanner Madison Erythrocyte distribution width (RBC) [Ratio] 13.2 % Normal 11.0-15.0 [facility] Comment on above: Performed By: #### C BC ####[facility] [address] [place], [place] [address]Dr. Tanner Madison Hematocrit (Bld) [Volume fraction] 34.1 % Critically low 36.0-48.0 [facility] Comment on above: Performed By: #### C BC ####[facility] [address] [place], [place] [address]Dr. Tanner Madison Hemoglobin (Bld) [Mass/Vol] 11.7 g/dL Critically low 12.0-16.0 [facility] Comment on above: Performed By: #### C BC ####[facility] [address] [place], [place] [address]Dr. Tanner Madison IG # 0.02 10e3/ul Normal 0.00-0.03 [facility] Comment on above: Performed By: #### C BC ####[facility] [address] [place] [id number]. Tanner Madison IG % 0.4 % Normal 0.0-0.5 [facility] Comment on above: Performed By: #### C BC ####[facility] [address] [place] [address]Dr. Tanner Madison LYMPH # 1.2 103/ul Normal 1.2-3.8 [facility] Comment on above: Performed By: #### C BC ####[facility] [address] [place] [address]Dr. Tanner Madison Lymphocytes/100 WBC (Bld) 25.6 % Normal 20.5-60.0 [facility] Comment on above: Performed By: #### C BC ####[facility] [address] [place] [address]Dr. Tanner Madison MANUAL DIFF REQ NO Normal [facility] Comment on above: Performed By: #### C BC ####[facility] [address] [place] [address]Dr. Virginiasunita Madison MCH (RBC) [Entitic mass] 30.9 pg Normal 26.7-34.0 [facility] Comment on above: Performed By: #### C BC ####[facility] [address] [place] [address]Dr. Tanner Los MCHC (RBC) [Mass/Vol] 34.3 g/dL Normal 29.9-35.2 [facility] Comment on above: Performed By: #### C BC ####[facility] [address] [place] [address]Dr. Tanner Madison MCV (RBC) [Entitic vol] 90.0 fL Normal 81.0-99.0 [facility] Comment on above: Performed By: #### C BC ####[facility] [address] [place] [address]Dr. Tanner Madison MONO # 0.4 103/ul Normal 0.3-0.8 [facility] Comment on above: Performed By: #### C BC ####[facility] [address] [place], [place] [address]Dr. Tanner Madison Monocytes/100 WBC (Bld) 7.6 % Normal 1.7-12.0 [facility] Comment on above: Performed By: #### C BC ####[facility] [address] [place] [address]Dr. Tanner Madison NEUT # 3.0 103/ul Normal 1.4-6.5 [facility] Comment on above: Performed By: #### C BC ####[facility] [address] [place] [address]Dr. Tanner Madison Neutrophils/100 WBC (Bld) 64.2 % Normal 43.0-75.0 [facility] Comment on above: Performed By: #### C BC ####[facility] [address] [place] [address]Dr. Tanner Madison Platelet mean volume (Bld) [Entitic vol] 8.5 fL Critically low 9.5-13.5 [facility] Comment on above: Performed By: #### C BC ####[facility] [address] [place] [address]Dr. Tanner Madison PLT 269 103/ul Normal 150-450 [facility] Comment on above: Performed By: #### C BC ####[facility] [address] [place] [address]Dr. Tanner Madison RBC 3.79 106/ul Critically low 4.20-5.40 [facility] Comment on above: Performed By: #### C BC ####[facility] [address] [place] [address]Dr. Tanner Madison WBC 4.6 103/ul Normal 4.0-11.0 [facility] Comment on above: Performed By: #### C BC ####[facility] [address] [place] [address]Dr. Tanner Madison MG MAMM SCREEN 3D VIJAYA CADon 03-08-2022 MG MAMM SCREEN 3D VIJAYA CAD Patient: COURTNEY WHITE Exam Date: 03/08/2022 : 1950 Gender:F Ordering : DR KAR MOTA D.O. Admission #: [id number] Family : Order #: [id number] CLICK HERE TO VIEW EXAM RADIOLOGY REPORT [...] breast cancer at age 48. LOCATION: [facility] BREAST COMPOSITION: Extremely dense, which lowers [...] Fregoso MD on 03/08/2022 at 12:18 Normal [facility] PROF CHEM 8 (BAS METB)on Anion gap [Moles/Vol] 11.0 mmol/L Normal [facility] Comment on above: Performed By: #### T TYRA, BMP #### [facility] [address] [place] [address] Dr. Tanner Madison Calcium [Mass/Vol] 9.5 mg/dL Normal 8.5-10.1 [facility] Comment on above: Performed By: #### T TYRA, BMP #### [facility] [address] [place] [address] [address] Tanner Maidson Chloride [Moles/Vol] 103 mmol/L Normal 98-107 [facility] Comment on above: Performed By: #### T TYRA, BMP #### [facility] [address] [place] [address] Dr. Tanner Madison CO2 [Moles/Vol] 30.1 mmol/L Normal 21.0-32.0 [facility] Comment on above: Performed By: #### T TYRA, BMP #### [facility] [address] [place] [address] [address] Tanner Madison Creatinine [Mass/Vol] 0.98 mg/dL Normal 0.55-1.02 [facility] Comment on above: Performed By: #### T SH, BMP #### [facility] [address] [place] [address] [address] Tanner Madison EGFR-AF INDONESIAN >60 Normal >=60 [facility] Comment on above: Performed By: #### T SH, BMP #### [facility] [address] [place] [address] [address] Tanner Madison EGFR-NON AF INDONESIAN 56 mL/min/1.73m2 Critically low >=60 [facility] Comment on above: Performed By: #### T SH, BMP #### [facility] [address] [place] [address] Dr. Tanner Madison Glucose [Mass/Vol] 91 mg/dL Normal 74-106 [facility] Comment on above: Performed By: #### T SH, BMP #### [facility] [address] [place] [address] [address] Tanner Madison Potassium [Moles/Vol] 4.1 mmol/L Normal 3.5-5.1 [facility] Comment on above: Performed By: #### T SH, BMP #### [facility] [address] [place] [address] Dr. Tanner Madison Sodium [Moles/Vol] 140 mmol/L Normal 136-145 [facility] Comment on above: Performed By: #### T SH, BMP #### [facility] [address] [place] [address] [address] Tanner Madison Urea nitrogen [Mass/Vol] 14.0 mg/dL Normal 7.0-18.0 [facility] Comment on above: Performed By: #### T SH, BMP #### [facility] [address] [place] [address] [address] Tanner Madison Urea nitrogen/Creatinin e [Mass ratio] 14.3 mg/mg Normal [facility] Comment on above: Performed By: #### T SH, BMP #### [facility] [address] [place], [place] [address] Dr. Tanner Madison TSHon 03-08-2022 TSH 2.659 uIU/mL Normal 0.358-3.740 [place] Comment on above: Performed By: #### T TYRA BMP #### [facility] [address] [place], [place] [address] Dr. Tanner Madison VITAMIN D 25 OHon 03-08-2022 VIT D 25-OH 63.4 ng/mL Normal [facility] Comment on above: Performed By: #### V ITAD ####[facility] [address] [place], [place] [address]JjDr. Tanner Madison VIT D RANGES SEE BELOW Normal [facility] Comment on above: Result Comment: <20 ng/mL Vit D deficient 20 - <30 ng/mL Vit D insufficient 30 - 100 ng/mL Vit D sufficient >100 ng/mL Potential Toxicity Performed By: #### V ITAD ####[facility] [address] [place] [id number]. Tanner Madison XR DEXA BONE DENSITYon 03-08 [...] by: MARTA ELIAS Date: 2022-03-08 10:52 Normal [facility] CNPKiki 11-16-2021 SAEED Telephone (NIQ) COURTNEY WHITE ([id number]) 1950 F Date Time Provider Department 11/16/21 [...] Date: 11/16/2021 (None) Encounter Status:Closed by RAYSA RCIO on 11/23/21 Normal [facility] MRI LSPINE WO CONon 11-05-19 MRI LSPINE [...] by: MARTA ELIAS Date: 2021-11-04 06:33 Normal [facility] MRI TSPBANNER WO CONon 11-04-19 22 MRI [facility] CON EXAMINATION: MRI [facility] CON HISTORY: Scoliosis deformity of spine COMPARISON: [...] by: JEFF FREGOSO Date: 2021-11-03 19:07 Normal [facility] VIT D 25-OH LABCORPon 2021 Vitamin D, 25-Hydroxy 69.8 ng/mL Normal 30.0-100.0 [facility] Comment on above: Result Comment: Negar min D deficiency has been defined by the [place] of [employer] and an Endocrine Society practice guideline as a level of serum 25-OH vitamin D less than 20 ng/mL (1,2). The Endocrine Society went on to further define vitamin D insufficiency as a level between 21 and 29 ng/mL (2). 1. IOM ([place] of [employer]). 2010. Dietary reference intakes for calcium and D. [place]: The National Academies Press. 2. Mikal MF, Jayy LEMOS, Zi MACHADO, et al. Evaluation, treatment, and prevention of vitamin D deficiency: an Endocrine Society clinical practice guideline. JCEM. 2010; 96(7):1911-30. Performed By: #### V ITADLC #### [facility] [address] [place] [address] Dr. Tanner Madison CBC AUTO DIFFon 10-28-2021 BASO # 0.0 103/ul Normal 0.0-0.1 [facility] Comment on above: Performed By: #### C BC #### [facility] [address] [place] [address] Dr. Tanner Madison Basophils/100 WBC (Bld) 0.6 % Normal 0.2-2.0 [facility] Comment on above: Performed By: #### C BC #### [facility] [address] [place] [address] Dr. Tanner Madison EO # 0.1 103/ul Normal 0.0-0.7 [facility] Comment on above: Performed By: #### C BC #### [facility] [address] [place] [address] Dr. Tanner Madison Eosinophils/100 WBC (Bld) 1.1 % Normal 0.9-7.0 [facility] Comment on above: Performed By: #### C BC #### [facility] [address] [place] [address] Dr. Tanner Madison Erythrocyte distribution width (RBC) [Ratio] 13.5 % Normal 11.0-15.0 [facility] Comment on above: Performed By: #### C BC #### [facility] [address] [place] [address] Dr. Tanner Madison Hematocrit (Bld) [Volume fraction] 31.7 % Critically low 36.0-48.0 [facility] Comment on above: Performed By: #### C BC #### [facility] [address] [place] [address] Dr. Tanner Madison Hemoglobin (Bld) [Mass/Vol] 10.8 g/dL Critically low 12.0-16.0 [facility] Comment on above: Performed By: #### C BC #### [facility] [address] [place] [address] Dr. Tanner Madison IG # 0.01 10e3/ul Normal 0.00-0.03 [facility] Comment on above: Performed By: #### C BC #### [facility] [address] [place] [address] Dr. Tanner Madison IG % 0.2 % Normal 0.0-0.5 [facility] Comment on above: Performed By: #### C BC #### [facility] [address] [place] [address] Dr. Tanner Madison LYMPH # 1.3 103/ul Normal 1.2-3.8 [facility] Comment on above: Performed By: #### C BC #### [facility] [address] [place] [address] Dr. Tanner Madison Lymphocytes/100 WBC (Bld) 24.0 % Normal 20.5-60.0 [facility] Comment on above: Performed By: #### C BC #### [facility] [address] [place] [address] Dr. Tanner Madison MANUAL DIFF REQ NO Normal [facility] Comment on above: Performed By: #### C BC #### [facility] [address] [place] [address] Dr. Tanner Madison MCH (RBC) [Entitic mass] 31.0 pg Normal 26.7-34.0 [facility] Comment on above: Performed By: #### C BC #### [facility] [address] [place] [address] [address] Tanner Madison MCHC (RBC) [Mass/Vol] 34.1 g/dL Normal 29.9-35.2 [facility] Comment on above: Performed By: #### C BC #### [facility] [address] [place] [address] [address] Tanner Madison MCV (RBC) [Entitic vol] 91.1 fL Normal 81.0-99.0 [facility] Comment on above: Performed By: #### C BC #### [facility] [address] [place] [address] [address] Tanner Madison MONO # 0.5 103/ul Normal 0.3-0.8 [facility] Comment on above: Performed By: #### C BC #### [facility] [address] [place] [address] Dr. Tanner Madison Monocytes/100 WBC (Bld) 8.3 % Normal 1.7-12.0 [facility] Comment on above: Performed By: #### C BC #### [facility] [address] [place] [address] Dr. Tanner Madison NEUT # 3.6 103/ul Normal 1.4-6.5 [facility] Comment on above: Performed By: #### C BC #### [facility] [address] [place] [address] Dr. Tanner Madison Neutrophils/100 WBC (Bld) 65.8 % Normal 43.0-75.0 [facility] Comment on above: Performed By: #### C BC #### [facility] [address] [place] [address] Dr. Tanner Madison Platelet mean volume (Bld) [Entitic vol] 8.6 fL Critically low 9.5-13.5 [facility] Comment on above: Performed By: #### C BC #### [facility] [address] [place] [address] Dr. Tanner Madison PLT 234 103/ul Normal 150-450 [facility] Comment on above: Performed By: #### C BC #### [facility] [address] [place] [address] [address] Tanner Madison RBC 3.48 106/ul Critically low 4.20-5.40 [facility] Comment on above: Performed By: #### C BC #### [facility] [address] [place] [address] [address] Tanner Madison WBC 5.4 103/ul Normal 4.0-11.0 [facility] Comment on above: Performed By: #### C BC #### [facility] [address] [place] [address] [address] Tanner Madison PROF CHEM 8 (BAS METB)on Anion gap [Moles/Vol] 12.7 mmol/L Normal [facility] Comment on above: Performed By: #### B MP ####[facility] [address] [place] [address]DrAryan Madison Calcium [Mass/Vol] 9.2 mg/dL Normal 8.5-10.1 [facility] Comment on above: Performed By: #### B MP ####[facility] [address] [place] [address]DrAryan Madison Chloride [Moles/Vol] 102 mmol/L Normal 98-107 [facility] Comment on above: Performed By: #### B MP ####[facility] [address] [place] [address]Dr. Tanner Madison CO2 [Moles/Vol] 30.4 mmol/L Normal 21.0-32.0 [facility] Comment on above: Performed By: #### B MP ####[facility] [address] [place] [address]DrAryan Madison Creatinine [Mass/Vol] 1.07 mg/dL Critically high 0.55-1.02 [facility] Comment on above: Performed By: #### B MP ####[facility] [address] [place] [address]Dr. Tanner Madison EGFR-AF INDONESIAN >60 Normal >=60 [facility] Comment on above: Performed By: #### B MP ####[facility] [address] [place] [address]Dr. Tanner Madison EGFR-NON AF INDONESIAN 50 mL/min/1.73m2 Critically low >=60 [facility] Comment on above: Performed By: #### B MP ####[facility] [address] [place] [address]Dr. Tanner Madison Glucose [Mass/Vol] 99 mg/dL Normal 74-106 [facility] Comment on above: Performed By: #### B MP ####[facility] [address] [place] [address]Dr. Tanner Madison Potassium [Moles/Vol] 4.1 mmol/L Normal 3.5-5.1 [facility] Comment on above: Performed By: #### B MP ####[facility] [address] [place] [address]Dr. Tanner Madison Sodium [Moles/Vol] 141 mmol/L Normal 136-145 [facility] Comment on above: Performed By: #### B MP ####[facility] [address] [place] [address]Dr. Tanner Madison Urea nitrogen [Mass/Vol] 16.0 mg/dL Normal 7.0-18.0 [facility] Comment on above: Performed By: #### B MP ####[facility] [id number] [place] [address]Dr. Tanner Madison Urea nitrogen/Creatinin e [Mass ratio] 15.0 mg/mg Normal [facility] Comment on above: Performed By: #### B MP ####[facility] [id number] [place] [address]Dr. Tanner Los CNOVon 10-15-2021 CNOV Office Visit (SPNMMN ) COURTNEY WHITE ([id number]) 1950 F Date Time Provider Department 10/15/21 2:00 PM LORI ANCELMO SPNMMN During your visit today, we recorded the [...] short period (more content not included)... Normal [facility] XR SCOLIOSIS 2V PA STAND/LAT [...] abnormality. IMPRESSION: Thoracolumbar scoliosis and degenerative changes. Spool Cleaner: PSCB Transcribe Date/Time: Oct 15 2021 2:52P Dictated by : CHETNA HERNANDEZ MD This examination was interpreted and the report reviewed and electronically signed by: CHETNA HERNANDEZ MD on Oct 15 2021 2:54PM EST [id number] Normal [facility] XR SCOLIOSIS PA STAND/LAT 2V on 10-15-2021 [facility] 08-27-2021 L - -------- Specimen: [id number] Received: 08/27/21 Status: VINOD Garcia Num: [id number] Spec Type: Surgical Subm Dr: Will Ma MD Tissues: A Gastric Biopsy (GASTRIC BXS) Procedures: HE Stain/2, Gross/Micro L4 -------- Patient Age/Sex Location Account Attending Physician -------- Courtney White 70/F [id number] Will Ma MD -------- SPEC NUM: [id number] RECD: 08/27/21 STATUS: VINOD GARCIA NUM: [id number] JHONNY: 08/27/21- [facility] DR: Will Ma MD ENTERED: 08/27/21 [facility] DR: SON TYPE: Surgical DEPT: S [...] microscopic findings support the above pathologic diagnosis. [id number] -------- -------- Specimen: [id number] Received: 08/27/21 Status: VINOD Radha Num: [id number] Spec Type: Surgical Subm Dr: Will Ma MD Tissues: A Gastric Biopsy (GASTRIC BXS) Procedures: SLIME Stain/2, Gross/Micro L4 -------- Patient: Courtney White [id number] (Continued) -------- Signed (signature on file) Nisreen Marquez MD 08/31/21 8891 [facility] COVID-19 FRon 08-25-2021 SARS-CoV-2 (COVID-19) RNA JEFFRY+probe Ql (Unsp spec) Negative Normal Negative [facility] Comment on above: Order Comment: Healt hcare Worker?: N Result Comment: Testing for SARS-CoV-2 by RT-PCR This test was developed and its performance characteristics determined by [employer] and validated at the [facility]. This test has not been [...] is terminated or revoked sooner. PERFORMED BY: [place] [address] PATHOLOGIST BRAKE SHOE REBUILDER NISREEN MARQUEZ M.D. Performed By: #### C OVID 19 [facility] #### [address] Vital Signs Date Time Vital Sign Value Performing Clinician Facility 08-03-2023 10:08040 Body height 160.02 cm [facility] 08-03-2023 10:08040 Body mass index (BMI) [Ratio] 19.7 kg/m2 [facility] 08-03-2023 10:08040 Body weight 50.57 kg [facility] 08-03-2023 10:08040 Diastolic blood pressure 81 mm[Hg] [facility] 08-03-2023 10:08-0400 Heart rate 70 /min [facility] 08-03-2023 10:080400 Respiratory rate 12 /min [facility] 08-03-2023 10:08-0400 Systolic blood pressure 150 mm[Hg] [facility] 09-26-2022 10:30-0400 Body height 160.02 cm Kar Ball Other Index Other 09-26-2022 10:30-0400 Body mass index (BMI) [Ratio] 19.31 kg/m2 Kar Ball Other [facility] Other 09-26-2022 10:30-0400 Body weight 49.44 kg Kar Ball Other [facility] Other 09-26-2022 10:30-0400 Diastolic blood pressure 75 mm[Hg] Kar Ball Other Index Other 09-26-2022 10:30-0400 Respiratory rate 12 /min Kar Ball Other Index Other 09-26-2022 10:30-0400 Systolic blood pressure 166 mm[Hg] Kar Ball Other Index Other 02-01-2022 10:22-0500 Body height 160 cm Wellington Hong MD Work Phone: [facility] 02-01-2022 10:22-0500 Body weight 49.9 kg Wellington Hong MD Work Phone: [facility] 02-01-2022 10:22-0500 Diastolic blood pressure 76 mm[Hg] Wellington Hong MD Work Phone: [facility] 02-01-2022 10:22-0500 Heart rate 71 /min Wellington Hong MD Work Phone: [facility] 02-01-2022 10:22-0500 Respiratory rate 14 /min Wellington Hong MD Work Phone: [facility] 02-01-2022 10:22-0500 SaO2% (BldA) [Mass fraction] 98 % Wellington Hong MD Work Phone: [facility] 02-01-2022 10:22-0500 Systolic blood pressure 168 mm[Hg] Wellington Hong MD Work Phone: [facility] Encounters Encounter Date Encounter Type Care Provider Facility Start: 11-16-2023 End: 11-16-[address] [facility] Work Phone: Start: 11-16-2023 End: 11-16-2023 Patient encounter procedure [facility] Physician [facility] Work Phone: Start: 08-03-2023 End: 08-03-[address] [facility] Work Phone: Start: 08-03-2023 End: 08-03-2023 Patient encounter procedure [facility] Physician [facility] Work Phone: Start: 07-19-2023 Non-patient / Non-visit [facility] Phys[facility] Work Phone: Start: 03-27-2023 End: 03-27-2023 ambulatory Kar Ball Other Index Other Start: 03-27-2023 Office outpatient vi sit 15 minutes Kar Mota [facility] Start: 03-27-2023 Telephone encounter Kar Mota [facility] Start: 01-23-2023 End: 01-23-2023 ambulatory Kar Ball Other Index Other Start: 01-23-2023 Telephone encounter Kar Mota FP [facility] Start: 11-29-2022 End: 11-29-2022 ambulatory Kar Ball Other Index Other Start: 11-29-2022 Telephone encounter Kar Mota FP [facility] Start: 11-28-2022 End: 11-28-2022 ambulatory Kar Ball Other Index Other Start: 11-28-2022 Nursing evaluation o f patient and report Kar Mota [facility] Start: 11-28-2022 Telephone encounter Kar NAILS [facility] Start: 10-04-2022 End: 10-04-2022 ambulatory Kar Mota Other Index Other Start: 10-04-2022 Telephone encounter Kar Cervantes [facility] Start: 09-26-2022 End: 09-26-2022 ambulatory Kar Mota Other Index Other Start: 09-26-2022 Office outpatient vi sit 15 minutes Kar Mota [facility] Start: 07-14-[address] MANJULA MARCIAL Facil ity:[facility] Start: 05-02-2022 End: 05-03-[address] MANJULA MARCIAL Facility:[facility] Start: 03-08-2022 End: 03-09-[address] MANJULA MARCIAL Facility:[facility] Start: 03-02-2022 End: 03-03-[address] MANJULA MARCIAL Facility:[facility] Start: 02-15-2022 Adult health examination Chris Mota Other Index Other Start: 02-01-2022 End: 02-01-2022 ambulatory ANCELMO SANDOVAL Facility:[facility] Start: 02-01-2022 End: 02-01-2022 Patient encounter procedure Wellington Hong MD Work Phone: [facility] Comment on above: Encounter for screen ing for osteoporosis (Primary Dx) Start: 01-18-2022 End: 01-19-[address] MANJULA MARCIAL Facility:[facility] Start: 12-21-2021 End: 12-22-[address] MANJULA MARCIAL Facility:[facility] Start: 11-30-2021 End: 12-01-[address] DUC HARRIS . Facility:[facility] Start: 11-23-2021 End: 11-24-[address] DUC HARRIS . Facility:[facility] Start: 09-20-2022 Telephone encounter Ancelmo crews PA-C Work Phone: Neurology Comment on above: Results Start: 11-11-2021 End: 11-11-[address] KAR MOTA Facility:[facility] Start: 11-03-2021 End: 11-04-[address] KAR MOTA Facility:[facility] Start: 10-28-2021 End: 10-29-[address] KAR MOTA Facility:[facility] Start: 10-15-2021 End: 10-15-2021 ambulatory ANCELMO SANDOVAL Facility:[facility] Start: 10-15-2021 End: 10-15-2021 Subsequent hospital [...] 02-27-2022 ADVANCE DIRECTIVE DISCUSSION ADVANCE DIRECTIVE DISCUSSION [facility] Start: 02-27-2022 DEPRESSION ASSESSMENT DEPRESSION ASS ESSMENT [facility] Start: 10-28-2021 Influenza vaccination INFLUENZA (#1) [facility] Start: 07-25-2021 COVID-19 VACCINE (5 - Booster for Pfizer series) COVID-19 VACCINE (5 - Booster for Pfizer series) [facility] Start: 02-27-2021 ADVANCE DIRECTIVE DISCUSSION ADVANCE DIRECTIVE DISCUSSION [facility] Start: 02-27-2021 DEPRESSION ASSESSMENT DEPRESSION ASS ESSMENT [facility] Start: 2013 BONE DENSITY BONE DENSITY [facility] Start: 2013 PNEUMOCOCCAL: 65+ (1 - PCV) PNEUMOCOCCAL: 65+ (1 - PCV) [facility] Start: 1998 SHINGRIX VACCINE (1 of 2) SHINGRIX VACCINE (1 of 2) [facility] Start: 1993 COLOGUARD (FIT-DNA) COLOGUARD (FIT-D NA) [facility] Start: 1993 Colonoscopy COLONOSCOPY [facility] Start: 1993 COLORECTAL CANCER SCREENING COLORECTAL CANCER SCREENING [facility] Start: [address] COLONOGRAPHY [facility] Start: 1993 DIABETES SCREEN DIABETES SCREEN [facility] Start: 1993 FECAL OCCULT BLOOD FECAL OCCULT BLOO D [facility] Start: 1993 LIPID SCREEN LIPID SCREEN [facility] Start: 1993 SIGMOIDOSCOPY SIGMOIDOSCOPY [facility] Start: 1988 Mammography MAMMOGRAM [facility] Start: 11-13-1967 Urine microalbumin profile DTAP,TDAP,TD (1 - Tdap) [facility] Start: 1966 HEPATITIS C SCREENING HEPATITIS C SC REENING [facility] Start: 1960 Adult depression screening assessment DEPRESSION SCREENING [facility] Comprehensive metabo lic 2000 panel - Serum or Plasma [facility] End: 03-03-2023 DXA-AXIAL SKELETON DXA-AXIAL SKELETON Radiology Routine Encounter for screening for osteoporosis 1 Occurrences starting 02/01/2022 until 03/03/2023 [facility] Work Phone: Comment on above: 1 Occurrences starti ng 02/01/2022 until 03/03/2023 [facility] Immunizations Immunization Date Immunization Notes Care Provider Cecy brown 11-28-2022 influenza virus vaccine, unspecified formulation [facility] 11-28-2022 influenza, high dose seasonal, preservative-free Kar Mota Other [facility] Other 11-26-2021 influenza virus vaccine, split virus (incl. purified surface antigen) Kar Mota Other [facility] Other 11-26-2021 influenza virus vaccine, unspecified formulation [facility] 05-30-2021 COVID-19 Vaccine Pfi zer - Documentation Purposes Only Kar Mota Other [facility] 12-04-2020 influenza virus vaccine, split virus (incl. purified surface antigen) Kar Mota Other [facility] Other 12-04-2020 influenza virus vaccine, unspecified formulation [facility] 11-22-2020 COVID-19 Vaccine Pfi zer - Documentation Purposes Only Kar Mota Other [facility] 04-18-2020 COVID-19 Vaccine Pfi zer - Documentation Purposes Only Kar Mota Other [facility] 03-28-2020 COVID-19 mRNA, Comirnaty (Pfizer) [facility] 03-28-2020 COVID-19 Vaccine Moderna - Documentation Purposes Only Kar Nakul Other [facility] 11-07-2019 influenza virus vaccine, split virus (incl. purified surface antigen) Kar Nakul Other [facility] Other 11-07-2019 influenza virus vaccine, unspecified formulation [facility] 11-26-2018 influenza virus vaccine, split virus (incl. purified surface antigen) Kar Mota Other [facility] Other 11-26-2018 influenza virus vaccine, unspecified formulation [facility] 12-07-2017 influenza virus vaccine, split virus (incl. purified surface antigen) Kar Mota Other [facility] Other 12-07-2017 influenza virus vaccine, unspecified formulation [facility] 12-19-2016 influenza virus vaccine, split virus (incl. purified surface antigen) Kar Nakul Other [employer] Other 12-19-2016 influenza virus vaccine, unspecified formulation [facility] 12-01-2015 influenza virus vaccine, split virus (incl. purified surface antigen) Kar Nakul Other [employer] Other 12-01-2015 influenza virus vaccine, unspecified formulation [facility] 05-15-2015 pneumococcal conjuga te vaccine, 13 valent Kar Mota Other [facility] 12-10-2014 influenza virus vaccine, split virus (incl. purified surface antigen) Kar Mota Other Index Other 12-10-2014 influenza virus vaccine, unspecified formulation [facility] 12-18-2013 tetanus and diphther ia toxoids, adsorbed, preservative free, for adult use (5 Lf of tetanus toxoid and 2 Lf of diphtheria toxoid) Kar Mota Other [facility] 2013 pneumococcal polysaccharide vaccine, 23 valent Kar Mota Other [facility] 12-17-2012 tetanus and diphther ia toxoids, adsorbed, preservative free, for adult use (5 Lf of tetanus toxoid and 2 Lf of diphtheria toxoid) Kar Mota Other [facility] Payers Date Payer Category Payer Medicare HUMANA MEDICARE HUMANA MEDICARE PPO [id number] 2017-Present [phone] [facility] [id number] [place] [address] PPO [id number] 1961 Medicare [id number] 1950 Unknown [id number] 1950 Unknown [id number] 1950 Unknown [id number] 1950 Unknown [id number] 1950 Unknown [id number] 1950 Unknown [id number] [id number] 1950 Unknown [id number] 1950 Unknown [id number] [id number] 1950 Unknown [id number] 1950 Unknown [id number] 1950 Unknown [id number] Self-pay Self Pay [id number] Social History Date Type Detail Facility Start: 08-27-2021 End: 10-15-2021 Tobacco smoking status NHIS Ex-smoker [facility] History of tobacco use Current smoker [facility] History of tobacco use Cigarette Smoker [facility] Start: 10-15-2021 Tobacco use and exposure Smokeless tobacco non-user [facility] Start: 10-15-2021 End: 02-01-2022 Alcohol intake Lifetime non-drinker (finding) [facility] Start: 1950 Sex Assigned At Not on file [facility] Start: 10-05-2021 End: 10-15-2021 Exposure to SARS-CoV-2 (event) Not sure [facility] Sex Assigned At Sex Assigned At [facility] th Index Other Start: 1950 Sex Assigned At Female F [facility] Clinical Notes 10-15-2021 to 03-27-2023 Note [...] increased frequency > 3/24 hours and watery Index Other 11-27-2023 Evaluation note* Encounter Date Diagnosis Assessment Notes Treatment Notes Treatment Clinical Notes Dec, Pain in thoracic spine (ICD-10 - M54.6) Index Other 10-02-2023 Evaluation note* Encounter Date Diagnosis Assessment Notes Treatment Notes Treatment Clinical Notes Nov, Lumbar spondylosis (ICD-10 - M47.816) [facility] Other 07-31-2023 Evaluation note* Encounter Date Diagnosis [...] but may cause increased bloating. Trial of Miralax Index Other 07-31-2023 Evaluation note* Encounter Date Diagnosis [...] but may cause increased bloating. Trial of [employer] Index Other 12-06-2022 NoteHNO ID: [id number] Author: Wellington Hong MD Service: ? Author [...] information obtained and documented by the physician res habilitation assistant. I examined the patient and evaluated [...] when sitting. No partha (more content not included)...[facility]12-06-2022 Instructions* Patient Instructions* Ancelmo Sandoval [...] your usual activities immediately. [facility] History of Present illness Narrative* Wellington [...] information obtained and documented by the physician res habilitation assistant. I examined the patient and evaluated [...] Past Histories independently gathered by the clinical production support developer and the remaining scribed note accurately describes my personal service to the patient. Wellington Hong MD [facility]2022 NoteCONSULTATION CONSULTATION DATE: 01/18/2022 CHIEF COMPLAINT: [...] appointment to see a spinal surgeon at [facility] in the near future. PHYSICAL EXAM: [...] We shall await the patient's evaluation with [facility]. Subsequent to that, we will make [...] this in February, given her 's illness.[facility] [id number] Note CONSULTATION PROCEDURE DATE: 12/21/2021 CHIEF COMPLAINT: [...] has responded well to this treatment. [facility] [id number] NoteCONSULTATION CONSULTATION DATE: 11/30/2021 CHIEF COMPLAINT: Low [...] annually. The patient has been seen by [facility] with regards to the possibility of surgical [...] was encouraged to maintain the communication with [facility] to see whether other options are available. We will repeat the testosterone cypionate on her return visit. The patient understands and would like to proceed. CC: Manjula Marcial M.D.[facility] [id number] NoteCONSULTATION PROCEDURE DATE: 11/23/2021 PREOPERATIVE DIAGNOSIS: Lumbar [...] try to attain a neutral posture laterally.[facility] [id number] NoteCONSULTATION CONSULTATION DATE: 11/23/2021 CHIEF COMPLAINT: Left leg pain, low back pain. HISTORY OF PRESENT ILLNESS: This is a very pleasant, 71-year-old female who is known to the [facility]. The patient has an MRI of her lumbar spine, CT of the thoracic and CT of the lumbar spine. The patient has severe rotoscoliosis. The patient was seen at the [facility]. The patient states she is functioning well; [...] like to proceed. CC: Manjula Marcial M.D.[facility] [id number] Miscellaneous Notes* Telephone Encounter - Cesilia Dotyins - 11/16/2021 1:46 PM EDT Received the following record(s) via fax. -MRI tspine wo(report) Date 11/03/21 Record(s) scanned into pt's chart. Cesilia Adler Images requested documented [facility]-07-2022 NotePROCEDURE: CT TSPINE WO CON, CT [...] Electronically authenticated by: JEFF FREGOSO Date: 2021-11-03 18:57[facility] HospitalMchqzaju47-72-2702 NotePROCEDURE: CT TSPINE WO CON, CT LSPINE [...] Electronically authenticated by: JEFF FREGOSO Date: 2021-11-03 18:57[facility]08-19-2022 NoteHNO ID: [id number] Author: Ancelmo Sandoval PA-C Service: ? Author Type: Physician Injection Molding Machine Tender Type: Progress Notes Filed: 10/18/2021 8:52 AM [...] neuromuscular referral to (more content not included)... [facility] note* Diagnosis Scoliosis of thoracolumbar spine, unspecified scoliosis type documented in this encounter [facility] note* Diagnosis Encounter for screening for osteoporosis- Primary Special screening for osteoporosis documented in this encounter [facility] noteNo [employer] Other Evaluation note* Diagnosis Onset Date Resolution Status Chronic kidney disease acute Elevated BP without diagnosis of hypertension acute VALDEZ (generalized anxiety disorder) acute GERD (gastroesophageal reflux disease) acute 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 Medicare annual wellness visit, subsequent noneactive Screening mammogram for breast cancer noneactive [facility] Work Phone: Evaluation noteNo assessment information available [facility] Work Phone: History general Narrative - Reported* [...] Colonoscopy 2021 Hospitalization History SEE SURGICAL HX [facility] Other Reason for referral (narrative)* Diagnostic Procedure Only (Routine) - Closed Specialty Diagnoses / Procedures Referred By Mouna mclean Referred To Contact XR IMAGING Diagnoses Scoliosis of thoracolumbar spine, unspecified scoliosis type Procedures XR SCOLIOSIS PA STAND/LAT 2V RADEX ENTIR THRC LMBR CRV SAC SPI W/SKULL 2/3 Ancelmo Sandoval PA-C [id number] [place] [id number] Xr Imaging Referral ID Status Reason Start Date Expiration Date V isits Requested Visits Authorized [id number] Closed Auto-Generate d Referral 10/15/2021 11/14/2022 1 1 [facility] for visit Narrative* Diagnostic Procedure Only (Routine) - Closed Specialty Diagnoses / Procedures Referred By Mouna mclean Referred To Contact XR IMAGING Diagnoses Scoliosis of thoracolumbar spine, unspecified scoliosis type Procedures XR SCOLIOSIS PA STAND/LAT 2V RADEX ENTIR THRC LMBR CRV SAC SPI W/SKULL 2/3 Ancelmo Sandoval PA-C [id number] [place] [address] Xr Imaging Referral ID Status Reason Start Date Expiration Date V isits Requested Visits Authorized [id number] Closed Auto-Generate d Referral 10/15/2021 11/14/2022 1 1 [facility] Summary Purpose Family History Relationship Condition Age at Onset Recorded Date/T hoda Not Specified Arthritis Unknown father Hypertension Unknown Heart problem Unknown Diabetes mellitus Unknown Not Specified Family history of mental disorder Unknow n Anxiety Unknown Relationship Condition Age at Onset Recorded Date/T hoda mother Arthritis Unknown father Hypertension Unknown Heart problem Unknown Diabetes mellitus Unknown mother Family history of mental disorder Unknown Anxiety Unknown Advance Directives Advance Directive Response [...] visit, subsequent Screening mammogram for breast cancer Chief Complaint flu shot Additional Source Comments INFORMATION SOURCE (unrecogn ized section and content) DATE CREATED AUTHOR 09/02/2021 [facility] DATE CREATED AUTHOR AUTHOR'S ORGANIZ ATION 03/07/2022 [facility] DATE CREATED AUTHOR AUTHOR'S ORGANIZ ATION 07/13/2022 [facility] Source Comments (unrecognize d section and content) In the event this informatio n is protected by the Federal Confidentiality of Alcohol and Drug Abuse Patient Records regulations: The Federal rules restrict any use of the information to criminally investigate or prosecute any alcohol or drug abuse patient.[facility] HospitalIn the event this information is protected by the Federal Confidentiality of Alcohol and Drug Abuse Patient Records regulations: The Federal rules restrict any use of the information to criminally investigate or prosecute any alcohol or drug abuse patient.[facility] HospitalIn the event this information is protected by the Federal Confidentiality of Alcohol and Drug Abuse Patient Records regulations: The Federal rules restrict any use of the information to criminally investigate or prosecute any alcohol or drug abuse patient.[facility] Reason for Visit (unrecogniz ed section and content) Reason Comments Results Reason Comments New Patient Care Teams (unrecognized sec tion and content) Team Status: Active Member Role Status Dates Kar Mota , DO Primary Care Provider Active Team Status: Inactive Member Role Status Dates Kar Mota , DO Primary Care Provide r, Attending Provider Active Start: November 16, 2023 End: November 16, 2023 Team Status: Active Member Role Status Dates Kar Mota , DO Primary Care Provider Active Team Status: Active Member Role Status Dates Kar Mota , DO Primary Care Provider Active Start: July 19, 2023 KARLA Santamaria Attending Provider Active Start : July 19, 2023 Team Status: Inactive Member Role Status Dates Kar Mota , DO Primary Care Provide r, Attending Provider Active Start: August 03, 2023 End: August 03, 2023 Team Status: Inactive Member Role Status Dates Kar Mota , DO Primary Care Provide r, Attending Provider Active Start: November 16, 2023 End: November 16, 2023 Goals (unrecognized section and content) Goals [...] BE BASED ON THE PRIMARY CLINICAL RECORDS. [facility]. provides no warranty or guarantee of the accuracy or completeness of information in this document.
== END 2023-11-20 11:06 | disposition home or self-care (01) ==
LOC: EC 11:05
PROVIDERS: PCP Internal Medicine; Visit Provider Orthopaedic Surgery
DX: M25.551 Pain in right hip (principal); M51.36 Other intervertebral disc degeneration, lumbar region
CPT/HCPCS: 73502

== ENCOUNTER 2023-12-15 10:42 | Outpatient (OUT) | payer MEDICARE, SELFPAY ==
--- OUTSIDE RECORDS SUMMARY | 2023-12-15 10:46 | XMS_ITS | CCD ---
Author Organization [facility] CliniSyaz Care Team Providers Care Call Center Assistant Name Role Phone Unavailable Primary Care Provider [...] MARCIAL, DR MANJULA Hart Primary Care Unavailable HCERY ., MARTINEZ Attending Unavailable CHERY ., MARTINEZ [...] MANJULA Hart Primary Care Unavailable BALL, DR BRUNETT Admitting Unavailable BALL, DR BURNETT Primary Care [...] Amoxicillin; Translations: [AMOXICILLIN] Drug Allergy 2 Anaphylaxis [facility] (14 sources) NITROFURANTOIN, MACROCRYSTALS / Nitrofurantoin, Monohydrate; Translations: [NITROFURANTOIN MONOHYD/M-CRYST] Drug Allergy 2 Anaphylaxis [facility] (16 sources) Sulfonamides (Antibiotic); Translations: [SULFA (SULFONAMIDE ANTIBIOTICS)] Drug Allergy 2 Anaphylaxis [facility] (1 source) Amoxicillin Drug Allergy 1 [facility] (2 sources) Nitrofurantoin Drug Allergy 3 [facility] (2 sources) Sulfonamides (Antibiotic) Drug allergy (disorder) 3 [facility] (10 sources) Amoxicillin-Pot Clavulanate Drug allergy 6 Unknown [employer] Other (2 sources) Clavulanate Drug Allergy 4 Unknown Reaction [facility] (2 sources) Nitrofurantoin Drug Allergy 4 Difficulty Breathing [facility] Medications Current Medications Medication Drug Class(es) [...] 12:00am docusate sodium 50 mg / sennosides, long-term [...] Comment on above: TAKE 1 CAPSULE BY [facility] 2 TIMES DAILY FOR 12 WEEKS Vit C,F-Bq-Hfeeu-Lutei n-Zeaxan (Preservision Areds-2) 250-90-40-1 mg Capsule (2 sources) Start: 08-28-19 Vit C,C-Vh-Cdzfj-Lute in-Zeaxan (Preservision Areds-2) 250-90-40-1 mg Capsule Active 1 TAB PO Twice daily August 27, 2021 12:00am 100 ml zoledronic acid 0.05 mg/ml injection (5 sources) Bisphosphonate Start: 08-28-19 take 5 mg intravenously once Zoledronic Wawv-Qcnezidk-Rey er (Reclast) 5 mg/100 mL Piggyback Active [...] 08-01-2023 Chronic Other aftercare (2 sources) Other retirement (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; Translations: [[facility] CURRENT DRUG THERAPY] Onset: 2 Episodic Other aftercare (6 sources) Long-term current use of drug therapy; Translations: [Other retirement (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] Episodic Other bone disease [...] BASO # 0.0 103/ul Normal 0.0-0.1 [facility] Comment on above: Performed By: #### C BC ####[facility] [address] [place] [address]Dr. Tanner Madison Basophils/100 WBC (Bld) 0.7 % Normal 0.2-2.0 [facility] Comment on above: Performed By: #### C BC ####[facility] [address] [place], [place] [address]Dr. Virginiasunita Los EO # 0.1 103/ul Normal 0.0-0.7 [facility] Comment on above: Performed By: #### C BC ####[facility] [address] [place], [place] [address]Dr. Tanner Madison Eosinophils/100 WBC (Bld) 1.5 % Normal 0.9-7.0 [facility] Comment on above: Performed By: #### C BC ####[facility] [address] [place], [place] [address]Dr. Tanner Madison Erythrocyte distribution width (RBC) [Ratio] 13.2 % Normal 11.0-15.0 [facility] Comment on above: Performed By: #### C BC ####[facility] [address] [place], [place] [address]Dr. Tanner Madison Hematocrit (Bld) [Volume fraction] 34.1 % Critically low 36.0-48.0 [facility] Comment on above: Performed By: #### C BC ####[facility] [address] [place], [place] [address]Dr. Tanner Madison Hemoglobin (Bld) [Mass/Vol] 11.7 g/dL Critically low 12.0-16.0 [facility] Comment on above: Performed By: #### C BC ####[facility] [address] [place], [place] [address]Dr. Tanner Madison IG # 0.02 10e3/ul Normal 0.00-0.03 [facility] Comment on above: Performed By: #### C BC ####[facility] [address] [place] [id number]. Tanner Madison IG % 0.4 % Normal 0.0-0.5 [facility] Comment on above: Performed By: #### C BC ####[facility] [address] [place] [address]Dr. Tanner Madison LYMPH # 1.2 103/ul Normal 1.2-3.8 [facility] Comment on above: Performed By: #### C BC ####[facility] [address] [place] [address]Dr. Tanner Madison Lymphocytes/100 WBC (Bld) 25.6 % Normal 20.5-60.0 [facility] Comment on above: Performed By: #### C BC ####[facility] [address] [place] [address]Dr. Tanner Madison MANUAL DIFF REQ NO Normal [facility] Comment on above: Performed By: #### C BC ####[facility] [address] [place] [address]Dr. Virginiasunita Madison MCH (RBC) [Entitic mass] 30.9 pg Normal 26.7-34.0 [facility] Comment on above: Performed By: #### C BC ####[facility] [address] [place] [address]Dr. Tanner Los MCHC (RBC) [Mass/Vol] 34.3 g/dL Normal 29.9-35.2 [facility] Comment on above: Performed By: #### C BC ####[facility] [address] [place] [address]Dr. Tanner Madison MCV (RBC) [Entitic vol] 90.0 fL Normal 81.0-99.0 [facility] Comment on above: Performed By: #### C BC ####[facility] [address] [place] [address]Dr. Tanner Madison MONO # 0.4 103/ul Normal 0.3-0.8 [facility] Comment on above: Performed By: #### C BC ####[facility] [address] [place], [place] [address]Dr. Tanner Madison Monocytes/100 WBC (Bld) 7.6 % Normal 1.7-12.0 [facility] Comment on above: Performed By: #### C BC ####[facility] [address] [place] [address]Dr. Tanner Madison NEUT # 3.0 103/ul Normal 1.4-6.5 [facility] Comment on above: Performed By: #### C BC ####[facility] [address] [place] [address]Dr. Tanner Madison Neutrophils/100 WBC (Bld) 64.2 % Normal 43.0-75.0 [facility] Comment on above: Performed By: #### C BC ####[facility] [address] [place] [address]Dr. Tanner Madison Platelet mean volume (Bld) [Entitic vol] 8.5 fL Critically low 9.5-13.5 [facility] Comment on above: Performed By: #### C BC ####[facility] [address] [place] [address]Dr. Tanner Madison PLT 269 103/ul Normal 150-450 [facility] Comment on above: Performed By: #### C BC ####[facility] [address] [place] [address]Dr. Tanner Madison RBC 3.79 106/ul Critically low 4.20-5.40 [facility] Comment on above: Performed By: #### C BC ####[facility] [address] [place] [address]Dr. Tanner Madison WBC 4.6 103/ul Normal 4.0-11.0 [facility] Comment on above: Performed By: #### C BC ####[facility] [address] [place] [address]Dr. Tanner Madison MG MAMM SCREEN 3D VIJAYA CADon 03-08-2022 MG MAMM SCREEN 3D VIJAYA CAD Patient: COURTNEY WHITE Exam Date: 03/08/2022 : 1950 Gender:F Ordering : DR KAR MOTA D.O. Admission #: [id number] Family : Order #: [id number] CLICK HERE TO VIEW EXAM RADIOLOGY REPORT [...] breast cancer at age 48. LOCATION: [facility] BREAST COMPOSITION: Extremely dense, which lowers [...] MD on 03/08/2022 at 12:18 Normal [facility] PROF CHEM 8 (BAS METB)on Anion gap [Moles/Vol] 11.0 mmol/L Normal [facility] Comment on above: Performed By: #### T TYRA, BMP #### [facility] [address] [place] [address] Dr. Tanner Madison Calcium [Mass/Vol] 9.5 mg/dL Normal 8.5-10.1 [facility] Comment on above: Performed By: #### T TYRA, BMP #### [facility] [address] [address] [address] Tanner Madison Chloride [Moles/Vol] 103 mmol/L Normal 98-107 [facility] Comment on above: Performed By: #### T TYRA, BMP #### [facility] [address] [place] [address] Dr. Tanner Madison CO2 [Moles/Vol] 30.1 mmol/L Normal 21.0-32.0 [facility] Comment on above: Performed By: #### T TYRA, BMP #### [facility] [address] [address] [address] Tanner Madison Creatinine [Mass/Vol] 0.98 mg/dL Normal 0.55-1.02 [facility] Comment on above: Performed By: #### T SH, BMP #### [facility] [address] [address] [address] Tanner Madison EGFR-AF SAUDI ARABIAN >60 Normal >=60 [facility] Comment on above: Performed By: #### T SH, BMP #### [facility] [address] [address] [address] Tanner Madison EGFR-NON AF SAUDI ARABIAN 56 mL/min/1.73m2 Critically low >=60 [facility] Comment on above: Performed By: #### T SH, BMP #### [facility] [address] [place] [address] Dr. Tanner Madison Glucose [Mass/Vol] 91 mg/dL Normal 74-106 [facility] Comment on above: Performed By: #### T SH, BMP #### [facility] [address] [address] [address] Tanner Madison Potassium [Moles/Vol] 4.1 mmol/L Normal 3.5-5.1 [facility] Comment on above: Performed By: #### T SH, BMP #### [facility] [address] [place] [address] Dr. Tanner Madison Sodium [Moles/Vol] 140 mmol/L Normal 136-145 [facility] Comment on above: Performed By: #### T SH, BMP #### [facility] [address] [address] [address] Tanner Madison Urea nitrogen [Mass/Vol] 14.0 mg/dL Normal 7.0-18.0 [facility] Comment on above: Performed By: #### T SH, BMP #### [facility] [address] [address] [address] Tanner Madison Urea nitrogen/Creatinin e [Mass ratio] 14.3 mg/mg Normal [facility] Comment on above: Performed By: #### T SH, BMP #### [facility] [address] [place], [place] [address] Dr. Tanner Madison TSHon 03-08-2022 TSH 2.659 uIU/mL Normal 0.358-3.740 [facility] Comment on above: Performed By: #### T TYRA BMP #### [facility] [address] [place], [place] [address] Dr. Tanner Madison VITAMIN D 25 OHon 03-08-2022 VIT D 25-OH 63.4 ng/mL Normal [facility] Comment on above: Performed By: #### V ITAD ####[facility] [address] [place], [place] [address]RrDr. Tanner Madison VIT D RANGES SEE BELOW Normal [facility] Comment on above: Result Comment: <20 ng/mL Vit D deficient 20 - <30 ng/mL Vit D insufficient 30 - 100 ng/mL Vit D sufficient >100 ng/mL Potential Toxicity Performed By: #### V ITAD ####[facility] [address] [place] [id number]. Tanner Madison XR DEXA BONE DENSITYon 03-08 [...] by: MARTA ELIAS Date: 2022-03-08 10:52 Normal [facility] CNPKiki 11-16-2021 SAEED Telephone (NIQ) COURTNEY WHITE ([id number]) 1950 F Date Time Provider Department 11/16/21 [...] Status:Closed by RAYSA RICO on 11/23/21 Normal [facility] MRI LSPINE WO CONon 11-05-19 MRI LSPINE [...] by: MARTA ELIAS Date: 2021-11-04 06:33 Normal [facility]19 22 MRI [facility] CON EXAMINATION: MRI [facility] CON HISTORY: Scoliosis deformity of spine COMPARISON: [...] by: JEFF FREGOSO Date: 2021-11-03 19:07 Normal [facility] VIT D 25-OH LABCORPon 2021 Vitamin D, 25-Hydroxy 69.8 ng/mL Normal 30.0-100.0 [facility] Comment on above: Result Comment: Negar min D deficiency has been defined by the [place] of Medicine and an Endocrine Society practice guideline as a level of serum 25-OH vitamin D less than 20 ng/mL (1,2). The Endocrine Society went on to further define vitamin D insufficiency as a level between 21 and 29 ng/mL (2). 1. IOM ([place] of Medicine). 2010. Dietary reference intakes for calcium and D. [place]: The National Academies Press. 2. Mikal MF, Jayy LEMOS, Zi MACHADO, et al. Evaluation, treatment, and prevention of vitamin D deficiency: an Endocrine Society clinical practice guideline. JCEM. 2010; 96(7):1911-30. Performed By: #### V ITADLC #### [facility] [address] [place] [address] Dr. Tanner Madison CBC AUTO DIFFon 10-28-2021 BASO # 0.0 103/ul Normal 0.0-0.1 [facility] Comment on above: Performed By: #### C BC #### [facility] [address] [place] [address] Dr. Tanner Madison Basophils/100 WBC (Bld) 0.6 % Normal 0.2-2.0 [facility] Comment on above: Performed By: #### C BC #### [facility] [address] [place] [address] Dr. Tanner Madison EO # 0.1 103/ul Normal 0.0-0.7 [facility] Comment on above: Performed By: #### C BC #### [facility] [address] [place] [address] Dr. Tanner Madison Eosinophils/100 WBC (Bld) 1.1 % Normal 0.9-7.0 [facility] Comment on above: Performed By: #### C BC #### [facility] [address] [place] [address] Dr. Tanner Madison Erythrocyte distribution width (RBC) [Ratio] 13.5 % Normal 11.0-15.0 [facility] Comment on above: Performed By: #### C BC #### [facility] [address] [place] [address] Dr. Tanner Madison Hematocrit (Bld) [Volume fraction] 31.7 % Critically low 36.0-48.0 [facility] Comment on above: Performed By: #### C BC #### [facility] [address] [place] [address] Dr. Tanner Madison Hemoglobin (Bld) [Mass/Vol] 10.8 g/dL Critically low 12.0-16.0 [facility] Comment on above: Performed By: #### C BC #### [facility] [address] [place] [address] Dr. Tanner Madison IG # 0.01 10e3/ul Normal 0.00-0.03 [facility] Comment on above: Performed By: #### C BC #### [facility] [address] [place] [address] Dr. Tanner Madison IG % 0.2 % Normal 0.0-0.5 [facility] Comment on above: Performed By: #### C BC #### [facility] [address] [place] [address] Dr. Tanner Madison LYMPH # 1.3 103/ul Normal 1.2-3.8 [facility] Comment on above: Performed By: #### C BC #### [facility] [address] [place] [address] Dr. Tanner Madison Lymphocytes/100 WBC (Bld) 24.0 % Normal 20.5-60.0 [facility] Comment on above: Performed By: #### C BC #### [facility] [address] [place] [address] Dr. Tanner Madison MANUAL DIFF REQ NO Normal [facility] Comment on above: Performed By: #### C BC #### [facility] [address] [place] [address] Dr. Tanner Madison MCH (RBC) [Entitic mass] 31.0 pg Normal 26.7-34.0 [facility] Comment on above: Performed By: #### C BC #### [facility] [address] [address] [address] Tanner Madison MCHC (RBC) [Mass/Vol] 34.1 g/dL Normal 29.9-35.2 [facility] Comment on above: Performed By: #### C BC #### [facility] [address] [address] [address] Tanner Madison MCV (RBC) [Entitic vol] 91.1 fL Normal 81.0-99.0 [facility] Comment on above: Performed By: #### C BC #### [facility] [address] [address] [address] Tanner Madison MONO # 0.5 103/ul Normal 0.3-0.8 [facility] Comment on above: Performed By: #### C BC #### [facility] [address] [place] [address] Dr. Tanner Madison Monocytes/100 WBC (Bld) 8.3 % Normal 1.7-12.0 [facility] Comment on above: Performed By: #### C BC #### [facility] [address] [place] [address] Dr. Tanner Madison NEUT # 3.6 103/ul Normal 1.4-6.5 [facility] Comment on above: Performed By: #### C BC #### [facility] [address] [place] [address] Dr. Tanner Madison Neutrophils/100 WBC (Bld) 65.8 % Normal 43.0-75.0 [facility] Comment on above: Performed By: #### C BC #### [facility] [address] [place] [address] Dr. Tanner Madison Platelet mean volume (Bld) [Entitic vol] 8.6 fL Critically low 9.5-13.5 [facility] Comment on above: Performed By: #### C BC #### [facility] [address] [place] [address] Dr. Tanner Madison PLT 234 103/ul Normal 150-450 [facility] Comment on above: Performed By: #### C BC #### [facility] [address] [address] [address] Tanner Madison RBC 3.48 106/ul Critically low 4.20-5.40 [facility] Comment on above: Performed By: #### C BC #### [facility] [address] [address] [address] Tanner Madison WBC 5.4 103/ul Normal 4.0-11.0 [facility] Comment on above: Performed By: #### C BC #### [facility] [address] [address] [address] Tanner Madison PROF CHEM 8 (BAS METB)on Anion gap [Moles/Vol] 12.7 mmol/L Normal [facility] Comment on above: Performed By: #### B MP ####[facility] [address] [place] [address]DrAryan Madison Calcium [Mass/Vol] 9.2 mg/dL Normal 8.5-10.1 [facility] Comment on above: Performed By: #### B MP ####[facility] [address] [place] [address]DrAryan Madison Chloride [Moles/Vol] 102 mmol/L Normal 98-107 [facility] Comment on above: Performed By: #### B MP ####[facility] [address] [place] [address]Dr. Tanner Madison CO2 [Moles/Vol] 30.4 mmol/L Normal 21.0-32.0 [facility] Comment on above: Performed By: #### B MP ####[facility] [address] [place] [address]DrAryan Madison Creatinine [Mass/Vol] 1.07 mg/dL Critically high 0.55-1.02 [facility] Comment on above: Performed By: #### B MP ####[facility] [address] [place] [address]Dr. Tanner Madison EGFR-AF SAUDI ARABIAN >60 Normal >=60 [facility] Comment on above: Performed By: #### B MP ####[facility] [address] [place] [address]Dr. Tanner Madison EGFR-NON AF SAUDI ARABIAN 50 mL/min/1.73m2 Critically low >=60 [facility] Comment on above: Performed By: #### B MP ####[facility] [address] [place] [address]Dr. Tanner Madison Glucose [Mass/Vol] 99 mg/dL Normal 74-106 [facility] Comment on above: Performed By: #### B MP ####[facility] [address] [place] [address]Dr. Tanner Madison Potassium [Moles/Vol] 4.1 mmol/L Normal 3.5-5.1 [facility] Comment on above: Performed By: #### B MP ####[facility] [address] [place] [address]Dr. Tanner Madison Sodium [Moles/Vol] 141 mmol/L Normal 136-145 [facility] Comment on above: Performed By: #### B MP ####[facility] [address] [place] [address]Dr. Tanner Madison Urea nitrogen [Mass/Vol] 16.0 mg/dL Normal 7.0-18.0 [facility] Comment on above: Performed By: #### B MP ####[facility] [address] [place] [address]Dr. Tanner Madison Urea nitrogen/Creatinin e [Mass ratio] 15.0 mg/mg Normal [facility] Comment on above: Performed By: #### B MP ####[facility] [address] [place] [address]Dr. Tanner Los CNOVon 10-15-2021 CNOV Office Visit (SPNMMN ) COURTNEY WHITE ([id number]) 1950 F Date Time Provider Department 10/15/21 [...] short period (more content not included)... Normal [facility] XR SCOLIOSIS 2V PA STAND/LAT on 10-15-2021 [...] abnormality. IMPRESSION: Thoracolumbar scoliosis and degenerative changes. 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: PSCB Transcribe Date/Time: Oct 15 2021 2:52P Dictated by : CHETNA HERNANDEZ MD This examination was interpreted and the report reviewed and electronically signed by: CHETNA HERNANDEZ MD on Oct 15 2021 2:54PM EST [id number] Normal [facility] XR SCOLIOSIS PA STAND/LAT 2V on 10-15-2021 [facility] 08-27-2021 L - -------- Specimen: [id number] Received: 08/27/21 Status: VINOD Garcia Num: [id number] Spec Type: Surgical Subm Dr: Will Ma MD Tissues: A Gastric Biopsy (GASTRIC BXS) Procedures: HE Stain/2, Gross/Micro L4 -------- Patient Age/Sex Location Account Attending Physician -------- Courtney White 70/F [id number] Will Ma MD -------- SPEC NUM: [id number] RECD: 08/27/21 STATUS: VINOD GARCIA NUM: [id number] JHONNY: 08/27/21- [facility] DR: Will Ma MD ENTERED: 08/27/21 [facility] DR: SON TYPE: Surgical DEPT: S ORDERED: [...] microscopic findings support the above pathologic diagnosis. [id number] -------- -------- Specimen: [id number] Received: 08/27/21 Status: VINOD Radha Num: [id number] Spec Type: Surgical Subm Dr: Will Ma MD Tissues: A Gastric Biopsy (GASTRIC BXS) Procedures: SLIME Stain/2, Gross/Micro L4 -------- Patient: Courtney White [id number] (Continued) -------- Signed (signature on file) Nisreen Marquez MD 08/31/[address] [facility] COVID-19 FRon 08-25-2021 SARS-CoV-2 (COVID-19) RNA JEFFRY+probe Ql (Unsp spec) Negative Normal Negative [facility] Comment on above: Order Comment: Healt hcare Worker?: N Result Comment: Testing for SARS-CoV-2 by RT-PCR This test was developed and its performance characteristics determined by [employer] ([employer]) and validated at the [facility]. This test has not been FDA [...] is terminated or revoked sooner. PERFORMED BY: [place] [address] PATHOLOGIST BOAT OUTBOARD ENGINE MECHANIC NISREEN MARQUEZ M.D. Performed By: #### C OVID 19 [facility] #### [address] Vital Signs Date Time Vital Sign Value Performing Clinician Facility 08-03-2023 10:08040 Body height 160.02 cm [facility] 08-03-2023 10:08040 Body mass index (BMI) [Ratio] 19.7 kg/m2 [facility] 08-03-2023 10:08040 Body weight 50.57 kg [facility] 08-03-2023 10:08040 Diastolic blood pressure 81 mm[Hg] [facility] 08-03-2023 10:08-0400 Heart rate 70 /min [facility] 08-03-2023 10:080400 Respiratory rate 12 /min [facility] 08-03-2023 10:08-0400 Systolic blood pressure 150 mm[Hg] [facility] 09-26-2022 10:30-0400 Body height 160.02 cm Kar Ball Other [employer] Other 09-26-2022 10:30-0400 Body mass index (BMI) [Ratio] 19.31 kg/m2 Kar Ball Other [employer] Other 09-26-2022 10:30-0400 Body weight 49.44 kg Kar Ball Other [employer] Other 09-26-2022 10:30-0400 Diastolic blood pressure 75 mm[Hg] Kar Ball Other [employer] Other 09-26-2022 10:30-0400 Respiratory rate 12 /min Kar Ball Other [employer] Other 09-26-2022 10:30-0400 Systolic blood pressure 166 mm[Hg] Kar Ball Other [employer] Other 02-01-2022 10:22-0500 Body height 160 cm Wellington Hong MD Work Phone: [facility] 02-01-2022 10:22-0500 Body weight 49.9 kg Wellington Hong MD Work Phone: [facility] 02-01-2022 10:22-0500 Diastolic blood pressure 76 mm[Hg] Wellington Hong MD Work Phone: [facility] 02-01-2022 10:22-0500 Heart rate 71 /min Wellington Hong MD Work Phone: [facility] 02-01-2022 10:22-0500 Respiratory rate 14 /min Wellington Hong MD Work Phone: [facility] 02-01-2022 10:22-0500 SaO2% (BldA) [Mass fraction] 98 % [place] Hong MD Work Phone: [facility] 02-01-2022 10:22-0500 Systolic blood pressure 168 mm[Hg] Wellington Hong MD Work Phone: [facility] Encounters Encounter Date Encounter Type Care Provider Facility Start: 11-16-2023 End: 11-16-2023 ambulatory [facility] Work Phone: Start: 11-16-2023 End: 11-16-2023 Patient encounter procedure [facility] Work Phone: Start: 08-03-2023 End: 08-03-2023 ambulatory [facility] Work Phone: Start: 08-03-2023 End: 08-03-2023 Patient encounter procedure [facility] Work Phone: Start: 07-19-2023 Non-patient / Non-visit [facility] Work Phone: Start: 03-27-2023 End: 03-27-2023 ambulatory Kar Ball Other [facility] Other Start: 03-27-2023 Office outpatient vi sit 15 minutes Kar Mota [facility] Start: 03-27-2023 Telephone encounter Kar Mota [facility] Start: 01-23-2023 End: 01-23-2023 ambulatory Kar Ball Other [facility] Other Start: 01-23-2023 Telephone encounter Kar Mota [facility] Start: 11-29-2022 End: 11-29-2022 ambulatory Kar Ball Other [facility] Other Start: 11-29-2022 Telephone encounter Kar Mota [facility] Start: 11-28-2022 End: 11-28-2022 ambulatory Kar Ball Other [employer] Other Start: 11-28-2022 Nursing evaluation o f patient and report Kar Mota [facility] Start: 11-28-2022 Telephone encounter Kar NAILS [facility] Start: 10-04-2022 End: 10-04-2022 ambulatory Kar Mota Other [employer] Other Start: 10-04-2022 Telephone encounter Kar Cervantes [facility] Start: 09-26-2022 End: 09-26-2022 ambulatory Kar Mota Other [employer] Other Start: 09-26-2022 Office outpatient vi sit 15 minutes Kar Mota [facility] Start: 07-14-[address] MANJULA MARCIAL Facil ity:[facility] Start: 05-02-2022 End: 05-03-[address] MANJULA MARCIAL Facility:[facility] Start: 03-08-2022 End: 03-09-[address] MANJULA MARCIAL Facility:[facility] Start: 03-02-2022 End: 03-03-[address] MANJULA MARCIAL Facility:[facility] Start: 02-15-2022 Adult health examination Chris Mota Other [employer] Other Start: 02-01-2022 End: 02-01-2022 ambulatory ANCELMO SANDOVAL Facility:[facility] Start: 02-01-2022 End: 02-01-2022 Patient encounter procedure Wellington Hong MD Work Phone: [facility] Comment on above: Encounter for screen ing [...] Start: 10-15-2021 End: 10-15-2021 ambulatory ANCELMO SANDOVAL Facility:[facility] Start: 10-15-2021 End: 10-15-2021 Subsequent hospital visit [...] 02-27-2022 ADVANCE DIRECTIVE DISCUSSION ADVANCE DIRECTIVE DISCUSSION [facility] Start: 02-27-2022 DEPRESSION ASSESSMENT DEPRESSION ASS ESSMENT [facility] Start: 10-28-2021 Influenza vaccination INFLUENZA (#1) [facility] Start: 07-25-2021 COVID-19 VACCINE (5 - Booster for Pfizer series) COVID-19 VACCINE (5 - Booster for Pfizer series) [facility] Start: 02-27-2021 ADVANCE DIRECTIVE DISCUSSION ADVANCE DIRECTIVE DISCUSSION [facility] Start: 02-27-2021 DEPRESSION ASSESSMENT DEPRESSION ASS ESSMENT [facility] Start: 2013 BONE DENSITY BONE DENSITY [facility] Start: 2013 PNEUMOCOCCAL: 65+ (1 - PCV) PNEUMOCOCCAL: 65+ (1 - PCV) [facility] Start: 1998 SHINGRIX VACCINE (1 of 2) SHINGRIX VACCINE (1 of 2) [facility] Start: 1993 COLOGUARD (FIT-DNA) COLOGUARD (FIT-D NA) [facility] Start: 1993 Colonoscopy COLONOSCOPY [facility] Start: 1993 COLORECTAL CANCER SCREENING COLORECTAL CANCER SCREENING [facility] Start: [address] COLONOGRAPHY [facility] Start: 1993 DIABETES SCREEN DIABETES SCREEN [facility] Start: 1993 FECAL OCCULT BLOOD FECAL OCCULT BLOO D [facility] Start: 1993 LIPID SCREEN LIPID SCREEN [facility] Start: 1993 [facility] Start: 1988 Mammography MAMMOGRAM [facility] Start: 11-13-1967 Urine microalbumin profile DTAP,TDAP,TD (1 - Tdap) [facility] Start: 1966 HEPATITIS C SCREENING HEPATITIS C SC REENING [facility] Start: 1960 Adult depression screening assessment DEPRESSION SCREENING [facility] Comprehensive metabo lic 2000 panel - Serum or Plasma [facility] End: 03-03-2023 DXA-AXIAL SKELETON DXA-AXIAL SKELETON Radiology Routine Encounter for screening for osteoporosis 1 Occurrences starting 02/01/2022 until 03/03/2023 [facility] Work Phone: Comment on above: 1 Occurrences starti ng 02/01/2022 until 03/03/2023 [facility] Immunizations Immunization Date Immunization Notes Care Provider Cecy brown 11-28-2022 influenza virus vaccine, unspecified formulation [facility] 11-28-2022 influenza, high dose seasonal, preservative-free Kar Mota Other [facility] Other 11-26-2021 influenza virus vaccine, split virus (incl. purified surface antigen) Kar Mota Other [facility] Other 11-26-2021 influenza virus vaccine, unspecified formulation [facility] 05-30-2021 COVID-19 Vaccine Pfi zer - Documentation Purposes Only Kar Mota Other [facility] 12-04-2020 influenza virus vaccine, split virus (incl. purified surface antigen) Kar Mota Other [facility] Other 12-04-2020 influenza virus vaccine, unspecified formulation [facility] 11-22-2020 COVID-19 Vaccine Pfi zer - Documentation Purposes Only Kar Mota Other [facility] 04-18-2020 COVID-19 Vaccine Pfi zer - Documentation Purposes Only Kar Mota Other [facility] 03-28-2020 COVID-19 mRNA, Comirnaty (Pfizer) [facility] 03-28-2020 COVID-19 Vaccine Moderna - Documentation Purposes Only Kar Nakul Other [facility] 11-07-2019 influenza virus vaccine, split virus (incl. purified surface antigen) Kar Nakul Other [facility] Other 11-07-2019 influenza virus vaccine, unspecified formulation [facility] 11-26-2018 influenza virus vaccine, split virus (incl. purified surface antigen) Kar Mota Other [facility] Other 11-26-2018 influenza virus vaccine, unspecified formulation [facility] 12-07-2017 influenza virus vaccine, split virus (incl. purified surface antigen) Kar Mota Other [facility] Other 12-07-2017 influenza virus vaccine, unspecified formulation [facility] 12-19-2016 influenza virus vaccine, split virus (incl. purified surface antigen) Kar Nakul Other [facility] [employer] Other 12-19-2016 influenza virus vaccine, unspecified formulation [facility] 12-01-2015 influenza virus vaccine, split virus (incl. purified surface antigen) Kar Nakul Other [facility] Other 12-01-2015 influenza virus vaccine, unspecified formulation [facility] 05-15-2015 pneumococcal conjuga te vaccine, 13 valent Kar Mota Other [facility] 12-10-2014 influenza virus vaccine, split virus (incl. purified surface antigen) Kar Mota Other [employer] Other 12-10-2014 influenza virus vaccine, unspecified formulation [facility] 12-18-2013 tetanus and diphther ia toxoids, adsorbed, preservative free, for adult use (5 Lf of tetanus toxoid and 2 Lf of diphtheria toxoid) Kar Mota Other [facility] 2013 pneumococcal polysaccharide vaccine, 23 valent Kar Mota Other [facility] 12-17-2012 tetanus and diphther ia toxoids, adsorbed, preservative free, for adult use (5 Lf of tetanus toxoid and 2 Lf of diphtheria toxoid) Kar Mota Other [facility] Payers Date Payer Category Payer Medicare HU[employer]NA MEDICARE HU[employer] MEDICARE PPO [id number] 2017-Present [phone] [facility] [id number] [place] [address] PPO [id number] 1961 Medicare [id number] 1950 Unknown [id number] 1950 Unknown [id number] 1950 Unknown [id number] 1950 Unknown [id number] 1948 Unknown [id number] 1948 Unknown [id number] 1948 Unknown [id number] 1948 Unknown [id number] 1948 Unknown [id number] 1948 Unknown [id number] 1950 Unknown [id number] Self-pay Self Pay [id number] Social History Date Type Detail Facility Start: 08-27-2021 End: 10-15-2021 Tobacco smoking status NHIS Ex-smoker [facility] History of tobacco use Current smoker [facility] History of tobacco use Cigarette Smoker [facility] Start: 10-15-2021 Tobacco use and exposure Smokeless tobacco non-user [facility] Start: 10-15-2021 End: 02-01-2022 Alcohol intake Lifetime non-drinker (finding) [facility] Start: 1950 Sex Assigned At Not on file C [facility] Start: 10-05-2021 End: 10-15-2021 Exposure to SARS-CoV-2 (event) Not sure [facility] Sex Assigned At Sex Assigned At [facility] th [employer] Other Start: 1950 Sex Assigned At Female F [facility] Clinical Notes 10-15-2021 to 03-27-2023 Note [...] increased frequency > 3/24 hours and watery [employer] Other 11-27-2023 Evaluation note* Encounter Date Diagnosis Assessment Notes Treatment Notes Treatment Clinical Notes Dec, Pain in thoracic spine (ICD-10 - M54.6) [facility] Other 10-02-2023 Evaluation note* Encounter Date Diagnosis Assessment Notes Treatment Notes Treatment Clinical Notes Nov, Lumbar spondylosis (ICD-10 - M47.816) [facility] Other 07-31-2023 Evaluation note* Encounter Date Diagnosis [...] may cause increased bloating. Trial of Miralax [employer] Other 07-31-2023 Evaluation note* Encounter Date Diagnosis [...] but may cause increased bloating. Trial of [employer] Other 12-06-2022 NoteHNO ID: [id number] Author: Wellington Hong MD Service: ? Author Type: Physician Type: Progress Notes Filed: 03/07/2022 5:40 AM Note Text: SPINE SURGERY NEW PATIENT PCP: No primary care provider on file. REFERRING PROVIDER: Ancelmo Sandoval PA-C SUBJECTIVE HISTORY OF PRESENT ILLNESS: Courtney White is a 71 year old female CHIEF COMPLAINT: low back pain Previously seen by Ancelmo Sandoavl PA-C. PRECIPITATING EVENT: None DURATION OF SYMPTOMS: [...] information obtained and documented by the physician high school assistant principal. I examined the patient and evaluated all [...] when sitting. No partha (more content not included)...[facility]12-06-2022 Instructions* Patient Instructions* Ancelmo Sandoval PA-C - [...] your usual activities immediately. [facility] History of Present illness Narrative* Wellington Hong [...] information obtained and documented by the physician high school assistant principal. I examined the patient and evaluated all [...] Past Histories independently gathered by the clinical technology support analyst and the remaining scribed note accurately describes my personal service to the patient. Wellington Hong MD documented [facility]2022 NoteCONSULTATION CONSULTATION DATE: 01/18/2022 CHIEF COMPLAINT: Low [...] appointment to see a spinal surgeon at [facility] in the near future. PHYSICAL EXAM: Upon [...] We shall await the patient's evaluation with [facility]. Subsequent to that, we will make a [...] this in February, given her 's illness.[id number] Note CONSULTATION PROCEDURE DATE: 12/21/2021 CHIEF COMPLAINT: [...] has responded well to this treatment. [facility] [id number] NoteCONSULTATION CONSULTATION DATE: 11/30/2021 CHIEF COMPLAINT: Low [...] annually. The patient has been seen by [facility] with regards to the possibility [...] was encouraged to maintain the communication with [facility] to see whether other options are available. We will repeat the testosterone cypionate on her return visit. The patient understands and would like to proceed. CC: Manjula Marcial M.D.[facility] [id number] NoteCONSULTATION PROCEDURE DATE: 11/23/2021 PREOPERATIVE DIAGNOSIS: Lumbar [...] try to attain a neutral posture laterally.[facility] [id number] NoteCONSULTATION CONSULTATION DATE: 11/23/2021 CHIEF COMPLAINT: Left leg pain, low back pain. HISTORY OF PRESENT ILLNESS: This is a very pleasant, 71-year-old female who is known to the [facility]. The patient has an MRI of her lumbar spine, CT of the thoracic and CT of the lumbar spine. The patient has severe rotoscoliosis. The patient was seen at the [facility]. The patient states she is [...] like to proceed. CC: Manjula Marcial M.D.[facility] [id number] Miscellaneous Notes* Telephone Encounter - Cesilia Dotyins - 11/16/2021 1:46 PM EDT Received the following record(s) via fax. -MRI tspine wo(report) Date 11/03/21 Record(s) scanned into pt's chart. Cesilia Adler Images requested documented in this encounterK[facility]09-07-2022 NotePROCEDURE: CT TSPINE WO CON, CT LSPINE [...] authenticated by: JEFF FREGOSO Date: 2021-11-03 18:57[facility] [id number] NotePROCEDURE: CT TSPINE WO CON, CT LSPINE [...] Electronically authenticated by: JEFF FREGOSO Date: 2021-11-03 18:57[facility]08-19-2022 NoteHNO ID: [id number] Author: Ancelmo Sandoval PA-C Service: ? Author Type: Physician Bottle Feeder Type: Progress Notes Filed: 10/18/2021 8:52 AM [...] neuromuscular referral to (more content not included)... 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 Medicare annual wellness visit, subsequent noneactive Screening mammogram for breast cancer noneactive [facility] Work Phone: Evaluation noteNo assessment information available [facility] Work Phone: History general Narrative - Reported* [...] Colonoscopy 2021 Hospitalization History SEE SURGICAL HX [facility] Other Reason for referral (narrative)* Diagnostic Procedure Only (Routine) - Closed Specialty Diagnoses / Procedures Referred By Mouna mclean Referred To Contact XR IMAGING Diagnoses Scoliosis of thoracolumbar spine, unspecified scoliosis type Procedures XR SCOLIOSIS PA STAND/LAT 2V RADEX ENTIR THRC LMBR CRV SAC SPI W/SKULL 2/3 Ancelmo Sandoval PA-C [id number] [place] [id number] Xr Imaging Referral ID Status Reason Start Date Expiration Date V isits Requested Visits Authorized [id number] Closed Auto-Generate d Referral 10/15/2021 11/14/2022 1 1 [facility] for visit Narrative* Diagnostic Procedure Only (Routine) - Closed Specialty Diagnoses / Procedures Referred By Mouna mclean Referred To Contact XR IMAGING Diagnoses Scoliosis of thoracolumbar spine, unspecified scoliosis type Procedures XR SCOLIOSIS PA STAND/LAT 2V RADEX ENTIR THRC LMBR CRV SAC SPI W/SKULL 2/3 Ancelmo Sandoval PA-C [address] [place] [address] Xr Imaging Referral ID Status Reason Start Date Expiration Date V isits Requested Visits Authorized [id number] Closed Auto-Generate d Referral 10/15/2021 11/14/2022 1 1 [facility] Summary Purpose Family History Relationship Condition Age [...] section and content) DATE CREATED AUTHOR 09/02/2021 [facility] DATE CREATED AUTHOR AUTHOR'S ORGANIZ ATION 03/07/2022 [facility] DATE CREATED AUTHOR AUTHOR'S ORGANIZ ATION 07/13/2022 [facility] Comments (unrecognize d section and content) In the event this informatio n is protected by the Federal Confidentiality of Alcohol and Drug Abuse Patient Records regulations: The Federal rules restrict any use of the information to criminally investigate or prosecute any alcohol or drug abuse patient.[facility] MemorialIn the event this information is protected by the Federal Confidentiality of Alcohol and Drug Abuse Patient Records regulations: The Federal rules restrict any use of the information to criminally investigate or prosecute any alcohol or drug abuse patient.[facility] MemorialIn the event this information is protected by the Federal Confidentiality of Alcohol and Drug Abuse Patient Records regulations: The Federal rules restrict any use of the information to criminally investigate or prosecute any alcohol or drug abuse patient.[facility] Reason for Visit (unrecogniz ed section and [...] BE BASED ON THE PRIMARY CLINICAL RECORDS. [employer] [facility]. provides no warranty or guarantee of the accuracy or completeness of information in this document.
[2023-12-15 12:13] LABS: Anion Gap 10.8; BUN Creatinine Ratio 16.7; Calcium 9.7 mg/dL (8.5-10.1); Carbon Dioxide 29.9 mmol/L (21.0-32.0); Chloride 106 mmol/L (98-107); Estimated GFR (African America 50 (>=60 mL/min/1.73m^2); Estimated GFR (Non-African Ame 41 (>=60 mL/min/1.73m^2); Glucose 91 mg/dL (74-106); Potassium 3.7 mmol/L (3.5-5.1); Sodium 143 mmol/L (136-145)
== END 2023-12-15 10:43 | disposition home or self-care (01) ==
LOC: LAB 10:43
PROVIDERS: PCP Internal Medicine; Visit Provider Internal Medicine
DX: M81.0 Age-related osteoporosis without current pathological fracture (principal)
CPT/HCPCS: 36415; 80048; 82306

== ENCOUNTER 2023-12-29 07:34 | Outpatient (RCR) | payer MEDICARE, SELFPAY ==
[2023-12-29] MEDS: ZOLEDRONIC ACID/MANNITOL-WATER 5 MG/100 ML BOTTLE 400 MG IV (11:00)
== END 2024-01-18 08:31 | disposition home or self-care (01) ==
LOC: INF 07:34
PROVIDERS: PCP Internal Medicine; Visit Provider Internal Medicine
DX: M81.0 Age-related osteoporosis without current pathological fracture (principal)
CPT/HCPCS: 96374; J3489

== ENCOUNTER 2024-01-02 14:11 | Outpatient (OUT) | payer MEDICARE, SELFPAY ==
--- NOTE | 2024-01-02 | CONS_ITS ---
CONSULTATION DATE: 01/02/2024 HISTORY: She returns today complaining of 3-5/10 pain in her right lower extremity, described as a deep aching pain. Pain has become quite sharp, increased with activities such as standing and walking. She feels most comfortable in the semi-recumbent position. Denied any change in bowel and bladder habits. Reports that she has had progressive weakness in her right lower extremity. CURRENT MEDICATION: Includes gabapentin 100 mg b.i.d., baclofen 10 mg pills ? a pill b.i.d. Her RONI on today?s visit was 22%. EXAMINATION: Notable for patient having mild hypoesthesia along the right L4 and L5 dermatome, 3/5 strength of the right anterior tibialis, extensor hallucis, as well as the quadriceps. She had an equivocally depressed right patella reflex and no signs consistent with myelopathy involving the lower extremities. She has a fair amount of myofascial spasm involving the lumbar paravertebral muscles on the right side as well. IMPRESSION: Our impression is patient with chronic pain secondary to right L4, possibly L5 radiculitis, possibly related to spinal stenosis. RECOMMENDATIONS: I recommend she undergo lumbar spine films, PA and lateral views, lumbosacral MRI. I have prescribed her a Medrol Dosepak in the interim. I have increased the gabapentin 100 mg pills, two pills b.i.d. Will see her back in the office after she undergoes imaging studies. As part of providing excellent, safe, comprehensive care, the following was completed at our patient's visit: 1. A medication reconciliation and review to ensure accurate knowledge of current/active medications, including asking our patients to inform us about any ibti-czj-whnbuii medications or herbal remedies/nutritional supplements/alternative remedies. 2. A review to specifically ensure our patients have had annual screening for: elevated body mass index (BMI, see intake chart for exact total), tobacco use, screening for depression, and screening for unhealthy alcohol use. When screening is concerning, patients are provided with education and the specific recommendation to discuss the concerning health issue and treatment options with their primary care provider. EMMANUEL
== END 2024-01-02 14:12 | disposition home or self-care (01) ==
LOC: PM 14:11
PROVIDERS: PCP Internal Medicine; Visit Provider Nurse Practitioner
DX: M54.16 Radiculopathy, lumbar region (principal); G89.29 Other chronic pain
CPT/HCPCS: G0463

== ENCOUNTER 2024-01-09 07:38 | Outpatient (OUT) | payer MEDICARE, SELFPAY ==
--- NOTE | 2024-01-09 07:40 | MR_ITS ---
[address] [address] Patient Name: KIMBERLY LUJAN MRN: [facility]:[id number] date: 1950 Sex: F Assigned Patient Location: MRI Current Patient Location: MRI Accession/Order Number: [id number] Exam Date: 01/09/2024 08:10 Report Date: 01/10/2024 13:21 At the request of: SAVANNA DESAI Procedure: MR lumbar spine wo con EXAM: MR lumbar spine wo con HISTORY: Lumbar radiculitis. COMPARISON: None. TECHNIQUE: MRI images obtained with multiple sequences. MRI of the lumbar spine without contrast. Sequences obtained by standard department protocol. FINDINGS: Levoscoliotic curvature of the lumbar spine centered at L4. The conus ends at L1. No abnormal signal of the terminal spinal cord. The conus ends at T12-L1. No abnormal signal of the terminal spinal cord. T11-T12: No spinal canal stenosis or neural foraminal stenosis. T12-L1: No spinal canal stenosis or neural foraminal stenosis. L1-L2: Mild disc degeneration. Mild broad-based posterior disc bulge. No spinal canal stenosis. Mild left neural foraminal narrowing. Mild right neural foraminal narrowing. Facet joints are normal. L2-L3: Moderate disc degeneration. Central posterior disc protrusion. Mild spinal canal narrowing. Right neural foramen is open. Left mild neural foraminal narrowing. Mild facet joint arthropathy. Degenerative endplate edema. L3-L4: Intervertebral disc degeneration. Broad-based posterior disc bulge. Right lateral recess narrowing may irritate the traversing right L4 nerve root. Mild left lateral recess narrowing. Severe right neural foraminal narrowing. Left neural foramen is open. Mild facet joint arthropathy. Mild degenerative endplate edema. L4-L5: Moderate disc degeneration. Intervertebral disc height loss. Broad-based posterior disc bulge. Right lateral recess narrowing in position to irritate the traversing right L5 nerve root. Left neural foramen is open. Right moderate to severe neural foraminal narrowing. Mild facet joint arthropathy. Mild degenerative endplate edema. L5-S1: Intervertebral disc degeneration. Central posterior disc protrusion. Lateral recess narrowing in position to irritate the traversing bilateral S1 nerve roots. Mild facet joint arthropathy. No spinal canal stenosis. Left and right mild neural foraminal narrowing. S2 Tarlov cyst. MR/MR lumbar spine wo con IMPRESSION: 1. Multilevel degenerative findings of the lumbar spine as described. 2. No acute fractures. 3. Levoscoliotic curvature of the lumbar spine centered at L4. Electronically authenticated by: LINSEY RODRIGUEZ Date: 01/10/2024 13:21
--- NOTE | 2024-01-09 07:41 | XR_ITS ---
The [address] [address] Patient Name: KIMBERLY LUJAN MRN: [id number] date: 1950 Sex: F Assigned Patient Location: MRI Current Patient Location: MRI Accession/Order Number: [id number] Exam Date: 01/09/2024 07:55 Report Date: 01/11/2024 06:58 At the request of: SAVANNA DESAI Procedure: XR lumbar spine min 4V EXAMINATION: XR lumbar spine min 4V HISTORY: Low Back Pain COMPARISON: XR L-spine 07/14/2022 FINDINGS: BONES: Marked scoliotic curvature of lumbar spine with multilevel grade one-2 lateral listhesis, greatest at L2-L3. No appreciable compression fracture. Multilevel marked degenerative facet arthropathy. DISC SPACES: Multilevel marked narrowing, predominantly along the concave curvature of the spine. PARASPINOUS: Negative. No paraspinous abnormality is seen. OTHER: Negative. XR/XR lumbar spine min 4V IMPRESSION: 1. Marked scoliotic curvature and multilevel marked degenerative changes of lumbar spine; grossly stable. Electronically authenticated by: MARTA ELIAS Date: 01/11/2024 06:58
--- OUTSIDE RECORDS SUMMARY | 2024-01-09 07:41 | XMS_ITS | CCD ---
Author Organization [facility] CliniSyca Care Team Providers Care Overhead Worker Name Role Phone Unavailable Primary Care [...] BALL, DR BURNETT Attending Unavailable BALL, DR BRUNETT Admitting Unavailable WEST, DR JEFF Choi Consulting [...] Amoxicillin; Translations: [AMOXICILLIN] Drug Allergy 2 Anaphylaxis [facility] (14 sources) NITROFURANTOIN, MACROCRYSTALS / Nitrofurantoin, Monohydrate; Translations: [NITROFURANTOIN MONOHYD/M-CRYST] Drug Allergy 2 Anaphylaxis [facility] (16 sources) Sulfonamides (Antibiotic); Translations: [SULFA (SULFONAMIDE ANTIBIOTICS)] Drug Allergy 2 Anaphylaxis [facility] (1 source) Amoxicillin Drug Allergy 1 [facility] (2 sources) Nitrofurantoin Drug Allergy 3 [facility] (2 sources) Sulfonamides (Antibiotic) Drug allergy (disorder) 3 [facility] (10 sources) Amoxicillin-Pot Clavulanate Drug allergy 6 Unknown [employer] Other (2 sources) Clavulanate Drug Allergy 4 Unknown Reaction [facility] (2 sources) Nitrofurantoin Drug Allergy 4 Difficulty Breathing [facility] Medications Current Medications Medication Drug Class(es) [...] 12:00am docusate sodium 50 mg / sennosides, senior care 8.6 mg oral tablet (3 sources) Start: [...] Comment on above: TAKE 1 CAPSULE BY [facility] 2 TIMES DAILY FOR 12 WEEKS Vit C,W-Pl-Ygzww-Lutei n-Zeaxan (Preservision Areds-2) 250-90-40-1 mg Capsule (2 sources) Start: 08-28-19 Vit C,P-Ix-Ymfcr-Lute in-Zeaxan (Preservision Areds-2) 250-90-40-1 mg Capsule Active 1 TAB PO Twice daily August 27, 2021 12:00am 100 ml zoledronic acid 0.05 mg/ml injection (5 sources) Bisphosphonate Start: 08-28-19 take 5 mg intravenously once Zoledronic Rmhg-Dkbcokee-Gbc er (Reclast) 5 mg/100 mL Piggyback Active [...] 08-01-2023 Chronic Other aftercare (2 sources) 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 Tanner Madison Basophils/100 WBC (Bld) 0.7 % Normal 0.2-2.0 [facility] Comment on above: Performed By: #### C BC ####[facility] Bd[address] [place], [place] [address]Dr. Virginiasunita Los EO # 0.1 103/ul Normal 0.0-0.7 [facility] Comment on above: Performed By: #### C BC ####[facility] S[address] [place], [place] [address]Dr. Tanner Madison Eosinophils/100 WBC (Bld) 1.5 % Normal 0.9-7.0 [facility] Comment on above: Performed By: #### C BC ####[facility] F[address] [place], [place] [address]Dr. Tanner Madison Erythrocyte distribution width (RBC) [Ratio] 13.2 % Normal 11.0-15.0 [facility] Comment on above: Performed By: #### C BC ####[facility] [address] [place], [place] [address]Dr. Tanner Madison Hematocrit (Bld) [Volume fraction] 34.1 % Critically low 36.0-48.0 [facility] Comment on above: Performed By: #### C BC ####[facility] [address] [place], [place] [address]Dr. Tanner Madison Hemoglobin (Bld) [Mass/Vol] 11.7 g/dL Critically low 12.0-16.0 [facility] Comment on above: Performed By: #### C BC ####[facility] Becxru[address]ms[address] [place], [place] [address]Dr. Tanner Madison IG # 0.02 10e3/ul Normal 0.00-0.03 [facility] Comment on above: Performed By: #### C BC ####[facility] [address] [place] [id number]. Tanner Madison IG % 0.4 % Normal 0.0-0.5 [facility] Comment on above: Performed By: #### C BC ####[facility] [address]aox[address] [place] [address]Dr. Tanner Madison LYMPH # 1.2 103/ul Normal 1.2-3.8 [facility] Comment on above: Performed By: #### C BC ####[facility] [address]ib[address] [place] [address]Dr. Tanner Madison Lymphocytes/100 WBC (Bld) 25.6 % Normal 20.5-60.0 [facility] Comment on above: Performed By: #### C BC ####[facility] [address]uv[address] [place] [address]Dr. Tanner Madison MANUAL DIFF REQ NO Normal [facility] Comment on above: Performed By: #### C BC ####[facility] Qndnwpjjvc[address] [place] [address]Dr. Virginiasunita Madison MCH (RBC) [Entitic mass] 30.9 pg Normal 26.7-34.0 [facility] Comment on above: Performed By: #### C BC ####[facility] [address]uc[address] [place] [address]Dr. Tanner Los MCHC (RBC) [Mass/Vol] 34.3 g/dL Normal 29.9-35.2 [facility] Comment on above: Performed By: #### C BC ####[facility] [address] [place] [address]Dr. Tanner Madison MCV (RBC) [Entitic vol] 90.0 fL Normal 81.0-99.0 [facility] Comment on above: Performed By: #### C BC ####[facility] [address] [place] [address]Dr. Tanner Madison MONO # 0.4 103/ul Normal 0.3-0.8 [facility] Comment on above: Performed By: #### C BC ####[facility] R[address] [place], [place] [address]Dr. Tanner Madison Monocytes/100 WBC (Bld) 7.6 % Normal 1.7-12.0 [facility] Comment on above: Performed By: #### C BC ####[facility] [address] [place] [address]Dr. Tanner Madison NEUT # 3.0 103/ul Normal 1.4-6.5 [facility] Comment on above: Performed By: #### C BC ####[facility] [address]lm[address] [place] [address]Dr. Tanner Madison Neutrophils/100 WBC (Bld) 64.2 % Normal 43.0-75.0 [facility] Comment on above: Performed By: #### C BC ####[facility] [address] [place] [address]Dr. Tanner Madison Platelet mean volume (Bld) [Entitic vol] 8.5 fL Critically low 9.5-13.5 [facility] Comment on above: Performed By: #### C BC ####[facility] [address] [place] [address]Dr. Tanner Madison PLT 269 103/ul Normal 150-450 [facility] Comment on above: Performed By: #### C BC ####[facility] [address] [place] [address]Dr. Tanner Madison RBC 3.79 106/ul Critically low 4.20-5.40 [facility] Comment on above: Performed By: #### C BC ####[facility] [address]fk[address] [place] [address]Dr. Tanner Madison WBC 4.6 103/ul Normal 4.0-11.0 [facility] Comment on above: Performed By: #### C BC ####[facility] [address] [place] [address]Dr. Tanner Madison MG MAMM SCREEN 3D VIJAYA CADon 03-08-2022 MG MAMM SCREEN 3D VIJAYA CAD Patient: COURTNEY WHITE Exam Date: 03/08/2022 : 1950 Gender:F Ordering : DR KAR MOTA D.O. Admission #: [id number] Family : Order #: [id number] CLICK HERE TO VIEW EXAM RADIOLOGY REPORT [...] breast cancer at age 48. LOCATION: [facility] BREAST COMPOSITION: Extremely dense, which lowers [...] MD on 03/08/2022 at 12:18 Normal [facility] PROF CHEM 8 (BAS METB)on Anion gap [Moles/Vol] 11.0 mmol/L Normal [facility] Comment on above: Performed By: #### T TYRA, BMP #### [facility] [address] [place] [address] Dr. Tanner Madison Calcium [Mass/Vol] 9.5 mg/dL Normal 8.5-10.1 [facility] Comment on above: Performed By: #### T TYRA, BMP #### [facility] [address] [place] [address] [address] Tanner Madison Chloride [Moles/Vol] 103 mmol/L Normal 98-107 [facility] Comment on above: Performed By: #### T TYRA, BMP #### [facility] [address] [place] [address] Dr. Tanner Madison CO2 [Moles/Vol] 30.1 mmol/L Normal 21.0-32.0 [facility] Comment on above: Performed By: #### T TYRA, BMP #### [facility] [address] [place] [address] [address] Tanner Madison Creatinine [Mass/Vol] 0.98 mg/dL Normal 0.55-1.02 [facility] Comment on above: Performed By: #### T SH, BMP #### [facility] [address] [place] [address] [address] Tanner Madison EGFR-AF MARSHALLESE >60 Normal >=[address] [facility] Comment on above: Performed By: #### T SH, BMP #### [facility] [address] [place] [address] [address] Tanner Madison EGFR-NON AF MARSHALLESE 56 mL/min/1.73m2 Critically low >=60 [facility] Comment on above: Performed By: #### T SH, BMP #### [facility] [address] [place] [address] Dr. Tanner Madison Glucose [Mass/Vol] 91 mg/dL Normal 74-106 [facility] Comment on above: Performed By: #### T SH, BMP #### [facility] [address] [place] [address] [address] Tanner Madison Potassium [Moles/Vol] 4.1 mmol/L Normal 3.5-5.1 [facility] Comment on above: Performed By: #### T SH, BMP #### [facility] [address] [place] [address] Dr. Tanner Madison Sodium [Moles/Vol] 140 mmol/L Normal 136-145 [facility] Comment on above: Performed By: #### T SH, BMP #### [facility] [address] [place] [address] [address] Tanner Madison Urea nitrogen [Mass/Vol] 14.0 mg/dL Normal 7.0-18.0 [facility] Comment on above: Performed By: #### T SH, BMP #### [facility] [address] [place] [address] [address] Tanner Madison Urea nitrogen/Creatinin e [Mass ratio] 14.3 mg/mg Normal [facility] Comment on above: Performed By: #### T SH, BMP #### [facility] [address] [place], [place] [address] Dr. Tanner Madison TSHon 03-08-2022 TSH 2.659 uIU/mL Normal 0.358-3.740 [facility] Comment on above: Performed By: #### T TYRA BMP #### [facility] [address] [place], [place] [address] Dr. Tanner Madison VITAMIN D 25 OHon 03-08-2022 VIT D 25-OH 63.4 ng/mL Normal [facility] Comment on above: Performed By: #### V ITAD ####[facility] [address] [place], [place] [address]GjDr. Tanner Madison VIT D RANGES SEE BELOW Normal [facility] Comment on above: Result Comment: <20 ng/mL Vit D deficient 20 - <30 ng/mL Vit D insufficient 30 - 100 ng/mL Vit D sufficient >100 ng/mL Potential Toxicity Performed By: #### V ITAD ####[facility] [address] [place] [id number]. Tanner Madison XR DEXA BONE DENSITYon 03-08 [...] - Moderate Fracture Risk Electronically authenticated by: MATRA ELIAS Date: 2022-03-08 10:52 Normal [facility] CNPKiki 11-16-2021 SAEED Telephone (NIQ) COURTNEY WHITE ([id number]) 1950 F Date Time Provider Department 11/16/21 [...] Status:Closed by RAYSA RICO on 11/23/21 Normal [facility] MRI LSPINE WO CONon 11-05-19 MRI LSPINE [...] by: MARTA ELIAS Date: 2021-11-04 06:33 Normal [facility]-04-19 22 MRI [facility] CON EXAMINATION: MRI [facility] CON HISTORY: Scoliosis deformity of spine COMPARISON: [...] by: JEFF FREGOSO Date: 2021-11-03 19:07 Normal [facility] VIT D 25-OH LABCORPon 2021 Vitamin D, 25-Hydroxy 69.8 ng/mL Normal 30.0-100.0 [facility] Comment on above: Result Comment: Negar min D deficiency has been defined by the [place] of Medicine and an Endocrine Society practice guideline as a level of serum 25-OH vitamin D less than 20 ng/mL (1,2). The Endocrine Society went on to further define vitamin D insufficiency as a level between 21 and 29 ng/mL (2). 1. IOM ([place] of Medicine). 2010. Dietary reference intakes for calcium and D. [place]: The National Academies Press. 2. Mikal MF, Jayy LEMOS, Zi MACHADO, et al. Evaluation, treatment, and prevention of vitamin D deficiency: an Endocrine Society clinical practice guideline. JCEM. 2010; 96(7):1911-30. Performed By: #### V ITADLC #### [facility] [address] [place] [address] Dr. Tanner Madison CBC AUTO DIFFon 10-28-2021 BASO # 0.0 103/ul Normal 0.0-0.1 [facility] Comment on above: Performed By: #### C BC #### [facility] [address] [place] [address] Dr. Tanner Madison Basophils/100 WBC (Bld) 0.6 % Normal 0.2-2.0 [facility] Comment on above: Performed By: #### C BC #### [facility] [address] [place] [address] Dr. Tanner Madison EO # 0.1 103/ul Normal 0.0-0.7 [facility] Comment on above: Performed By: #### C BC #### [facility] [address] [place] [address] Dr. Tanner Madison Eosinophils/100 WBC (Bld) 1.1 % Normal 0.9-7.0 [facility] Comment on above: Performed By: #### C BC #### [facility] [address] [place] [address] Dr. Tanner Madison Erythrocyte distribution width (RBC) [Ratio] 13.5 % Normal 11.0-15.0 [facility] Comment on above: Performed By: #### C BC #### [facility] [address] [place] [address] Dr. Tanner Madison Hematocrit (Bld) [Volume fraction] 31.7 % Critically low 36.0-48.0 [facility] Comment on above: Performed By: #### C BC #### [facility] [address] [place] [address] Dr. Tanner Madison Hemoglobin (Bld) [Mass/Vol] 10.8 g/dL Critically low 12.0-16.0 [facility] Comment on above: Performed By: #### C BC #### [facility] [address] [place] [address] Dr. Tanner Madison IG # 0.01 10e3/ul Normal 0.00-0.03 [facility] Comment on above: Performed By: #### C BC #### [facility] [address] [place] [address] Dr. Tanner Madison IG % 0.2 % Normal 0.0-0.5 [facility] Comment on above: Performed By: #### C BC #### [facility] [address] [place] [address] Dr. Tanner Madison LYMPH # 1.3 103/ul Normal 1.2-3.8 [facility] Comment on above: Performed By: #### C BC #### [facility] [address] [place] [address] Dr. Tanner Madison Lymphocytes/100 WBC (Bld) 24.0 % Normal 20.5-60.0 [facility] Comment on above: Performed By: #### C BC #### [facility] [address] [place] [address] Dr. Tanner Madison MANUAL DIFF REQ NO Normal [facility] Comment on above: Performed By: #### C BC #### [facility] [address] [place] [address] Dr. Tanner Madison MCH (RBC) [Entitic mass] 31.0 pg Normal 26.7-34.0 [facility] Comment on above: Performed By: #### C BC #### [facility] [address] [place] [address] [address] Tanner Madison MCHC (RBC) [Mass/Vol] 34.1 g/dL Normal 29.9-35.2 [facility] Comment on above: Performed By: #### C BC #### [facility] [address] [place] [address] [address] Tanner Madison MCV (RBC) [Entitic vol] 91.1 fL Normal 81.0-99.0 [facility] Comment on above: Performed By: #### C BC #### [facility] [address] [place] [address] [address] Tanner Madison MONO # 0.5 103/ul Normal 0.3-0.8 [facility] Comment on above: Performed By: #### C BC #### [facility] [address] [place] [address] Dr. Tanner Madison Monocytes/100 WBC (Bld) 8.3 % Normal 1.7-12.0 [facility] Comment on above: Performed By: #### C BC #### [facility] [address] [place] [address] Dr. Tanner Madison NEUT # 3.6 103/ul Normal 1.4-6.5 [facility] Comment on above: Performed By: #### C BC #### [facility] [address] [place] [address] Dr. Tanner Madison Neutrophils/100 WBC (Bld) 65.8 % Normal 43.0-75.0 [facility] Comment on above: Performed By: #### C BC #### [facility] [address] [place] [address] Dr. Tanner Madison Platelet mean volume (Bld) [Entitic vol] 8.6 fL Critically low 9.5-13.5 [facility] Comment on above: Performed By: #### C BC #### [facility] [address] [place] [address] Dr. Tanner Madison PLT 234 103/ul Normal 150-450 [facility] Comment on above: Performed By: #### C BC #### [facility] [address] [place] [address] [address] Tanner Madison RBC 3.48 106/ul Critically low 4.20-5.40 [facility] Comment on above: Performed By: #### C BC #### [facility] [address] [place] [address] [address] Tanner Madison WBC 5.4 103/ul Normal 4.0-11.0 [facility] Comment on above: Performed By: #### C BC #### [facility] [address] [place] [address] [address] Tanner Madison PROF CHEM 8 (BAS METB)on Anion gap [Moles/Vol] 12.7 mmol/L Normal [facility] Comment on above: Performed By: #### B MP ####[facility] [address] [place] [address]DrAryan Madison Calcium [Mass/Vol] 9.2 mg/dL Normal 8.5-10.1 [facility] Comment on above: Performed By: #### B MP ####[facility] [address] [place] [address]DrAryan Madison Chloride [Moles/Vol] 102 mmol/L Normal 98-107 [facility] Comment on above: Performed By: #### B MP ####[facility] [address] [place] [address]Dr. Tanner Madison CO2 [Moles/Vol] 30.4 mmol/L Normal 21.0-32.[address] [facility] Comment on above: Performed By: #### B MP ####[facility] [address] [place] [address]DrAryan Madison Creatinine [Mass/Vol] 1.07 mg/dL Critically high 0.55-1.02 [facility] Comment on above: Performed By: #### B MP ####[facility] [address] [place] [address]Dr. Tanner Madison EGFR-AF MARSHALLESE >60 Normal >=[address] [facility] Comment on above: Performed By: #### B MP ####[facility] [address] [place] [address]Dr. Tanner Madison EGFR-NON AF MARSHALLESE 50 mL/min/1.73m2 Critically low >=60 [facility] Comment on above: Performed By: #### B MP ####[facility] [address] [place] [address]Dr. Tanner Madison Glucose [Mass/Vol] 99 mg/dL Normal 74-106 [facility] Comment on above: Performed By: #### B MP ####[facility] [address] [place] [address]Dr. Tanner Madison Potassium [Moles/Vol] 4.1 mmol/L Normal 3.5-5.1 [facility] Comment on above: Performed By: #### B MP ####[facility] [address] [place] [address]Dr. Tanner Madison Sodium [Moles/Vol] 141 mmol/L Normal 136-145 [facility] Comment on above: Performed By: #### B MP ####[facility] [address] [place] [address]Dr. Tanner Madison Urea nitrogen [Mass/Vol] 16.0 mg/dL Normal 7.0-18.0 [facility] Comment on above: Performed By: #### B MP ####[facility] [address] [place] [address]Dr. Tanner Madison Urea nitrogen/Creatinin e [Mass ratio] 15.0 mg/mg Normal [facility] Comment on above: Performed By: #### B MP ####[facility] [address] [place] [address]Dr. Tanner Los CNOVon 10-15-2021 CNOV Office Visit (SPNMMN ) COURTNEY WHITE ([id number]) 1950 F Date Time Provider Department 10/15/21 [...] short period (more content not included)... Normal [facility] XR SCOLIOSIS 2V PA STAND/LAT on 10-15-2021 [...] abnormality. IMPRESSION: Thoracolumbar scoliosis and degenerative changes. 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 Transcribe Date/Time: Oct 15 2021 2:52P Dictated by : CHETNA HERNANDEZ MD This examination was interpreted and the report reviewed and electronically signed by: CHETNA HERNANDEZ MD on Oct 15 2021 2:54PM EST [id number] Normal [facility] XR SCOLIOSIS PA STAND/LAT 2V on 10-15-2021 [facility] 08-27-2021 L - -------- Specimen: [id number] Received: 08/27/21 Status: VINOD Garcia Num: [id number] Spec Type: Surgical Subm Dr: Will Ma MD Tissues: A Gastric Biopsy (GASTRIC BXS) Procedures: HE Stain/2, Gross/Micro L4 -------- Patient Age/Sex Location Account Attending Physician -------- Courtney White 70/F [id number] Will Ma MD -------- SPEC NUM: [id number] RECD: 08/27/21 STATUS: VINOD GARCIA NUM: [id number] JHONNY: 08/27/21- [facility] DR: Will Ma MD ENTERED: 08/27/21 [facility] [address]: SON TYPE: Surgical DEPT: S [...] microscopic findings support the above pathologic diagnosis. [id number] -------- -------- Specimen: [id number] Received: 08/27/21 Status: VINOD Radha Num: [id number] Spec Type: Surgical Subm Dr: Will Ma MD Tissues: A Gastric Biopsy (GASTRIC BXS) Procedures: SLIME Stain/2, Gross/Micro L4 -------- Patient: Courtney White [id number] (Continued) -------- Signed (signature on file) Nisreen Marquez MD 08/31/[address] [facility] COVID-19 FRon 08-25-2021 SARS-CoV-2 (COVID-19) RNA JEFFRY+probe Ql (Unsp spec) Negative Normal Negative [facility] Comment on above: Order Comment: Healt hcare Worker?: N Result Comment: Testing for SARS-CoV-2 by RT-PCR This test was developed and its performance characteristics determined by [employer] and validated at the [facility]. This test has not been FDA [...] is terminated or revoked sooner. PERFORMED BY: [place] [address] PATHOLOGIST [employer] NISREEN MARQUEZ M.D. Performed By: #### C OVID 19 [facility] #### [address] Vital Signs Date Time Vital Sign Value Performing Clinician Facility 08-03-2023 10:08040 Body height 160.02 cm [facility] 08-03-2023 10:08040 Body mass index (BMI) [Ratio] 19.7 kg/m2 [facility] 08-03-2023 10:08040 Body weight 50.57 kg [facility] 08-03-2023 10:08040 Diastolic blood pressure 81 mm[Hg] [facility] 08-03-2023 10:08-0400 Heart rate 70 /min [facility] 08-03-2023 10:080400 Respiratory rate 12 /min [facility] 08-03-2023 10:08-0400 Systolic blood pressure 150 mm[Hg] [facility] 09-26-2022 10:30-0400 Body height 160.02 cm Kar Ball Other [employer] Other 09-26-2022 10:30-0400 Body mass index (BMI) [Ratio] 19.31 kg/m2 Kar Ball Other [employer] Other 09-26-2022 10:30-0400 Body weight 49.44 kg Kar Ball Other [employer] Other 09-26-2022 10:30-0400 Diastolic blood pressure 75 mm[Hg] Kar Ball Other [employer] Other 09-26-2022 10:30-0400 Respiratory rate 12 /min Kar Ball Other [employer] Other 09-26-2022 10:30-0400 Systolic blood pressure 166 mm[Hg] Kar Ball Other [employer] Other 02-01-2022 10:22-0500 Body height 160 cm Wellington Hong MD Work Phone: [facility] 02-01-2022 10:22-0500 Body weight 49.9 kg Wellington Hong MD Work Phone: [facility] 02-01-2022 10:22-0500 Diastolic blood pressure 76 mm[Hg] Wellington Hong MD Work Phone: [facility] 02-01-2022 10:22-0500 Heart rate 71 /min Wellington Hong MD Work Phone: [facility] 02-01-2022 10:22-0500 Respiratory rate 14 /min Wellington Hong MD Work Phone: [facility] 02-01-2022 10:22-0500 SaO2% (BldA) [Mass fraction] 98 % Wellington Hong MD Work Phone: [facility] 02-01-2022 10:22-0500 Systolic blood pressure 168 mm[Hg] Wellington Hong MD Work Phone: [facility] Encounters Encounter Date Encounter Type Care Provider Facility Start: 11-16-2023 End: 11-16-2023 ambulatory [facility] Work Phone: Start: 11-16-2023 End: 11-16-2023 Patient encounter procedure [facility] Work Phone: Start: 08-03-2023 End: 08-03-2023 ambulatory [facility] Work Phone: Start: 08-03-2023 End: 08-03-2023 Patient encounter procedure [facility] Work Phone: Start: 07-19-2023 Non-patient / Non-visit [facility] Work Phone: Start: 03-27-2023 End: 03-27-2023 ambulatory Kar Ball Other [employer] Other Start: 03-27-2023 Office outpatient vi sit 15 minutes Kar Mota [facility] Start: 03-27-2023 Telephone encounter Kar Mota [facility] Start: 01-23-2023 End: 01-23-2023 ambulatory Kar Ball Other [employer] Other Start: 01-23-2023 Telephone encounter Kar Mota FP [facility] Start: 11-29-2022 End: 11-29-2022 ambulatory Kar Ball Other [employer] Other Start: 11-29-2022 Telephone encounter Kar Mota FP [facility] Start: 11-28-2022 End: 11-28-2022 ambulatory Kar Ball Other [employer] Other Start: 11-28-2022 Nursing evaluation o f patient and report Kar Mota [facility] Start: 11-28-2022 Telephone encounter Kar NAILS G [facility] Start: 10-04-2022 End: 10-04-2022 ambulatory Kar Mota Other [employer] Other Start: 10-04-2022 Telephone encounter Kar Cervantes [facility] Start: 09-26-2022 End: 09-26-2022 ambulatory Kar Mota Other [employer] Other Start: 09-26-2022 Office outpatient vi sit 15 minutes Kar Mota [facility] Start: 07-14-[address] MANJULA MARCIAL Facil ity:[facility]1 Start: 05-02-2022 End: 05-03-[address] MANJULA MARCIAL Facility:[facility] Start: 03-08-2022 End: 03-09-[address] MANJULA MARCIAL Facility:[facility] Start: 03-02-2022 End: 03-03-[address] MANJULA MARCIAL Facility:[facility] Start: 02-15-2022 Adult health examination Chris Mota Other [employer] Other Start: 02-01-2022 End: 02-01-2022 ambulatory ANCELMO SANDOVAL Facility:[facility] Start: 02-01-2022 End: 02-01-2022 Patient encounter procedure Wellington Hong MD Work Phone: [facility] Comment on above: Encounter for screen ing [...] Start: 10-15-2021 End: 10-15-2021 ambulatory ANCELMO SANDOVAL Facility:[facility] Start: 10-15-2021 End: 10-15-2021 Subsequent hospital visit [...] 02-27-2022 ADVANCE DIRECTIVE DISCUSSION ADVANCE DIRECTIVE DISCUSSION [facility] Start: 02-27-2022 DEPRESSION ASSESSMENT DEPRESSION ASS ESSMENT [facility] Start: 10-28-2021 Influenza vaccination INFLUENZA (#1) [facility] Start: 07-25-2021 COVID-19 VACCINE (5 - Booster for Pfizer series) COVID-19 VACCINE (5 - Booster for Pfizer series) [facility] Start: 02-27-2021 ADVANCE DIRECTIVE DISCUSSION ADVANCE DIRECTIVE DISCUSSION [facility] Start: 02-27-2021 DEPRESSION ASSESSMENT DEPRESSION ASS ESSMENT [facility] Start: 2013 BONE DENSITY BONE DENSITY [facility] Start: 2013 PNEUMOCOCCAL: 65+ (1 - PCV) PNEUMOCOCCAL: 65+ (1 - PCV) [facility] Start: 1998 SHINGRIX VACCINE (1 of 2) SHINGRIX VACCINE (1 of 2) [facility] Start: 1993 COLOGUARD (FIT-DNA) COLOGUARD (FIT-D NA) [facility] Start: 1993 Colonoscopy COLONOSCOPY [facility] Start: 1993 COLORECTAL CANCER SCREENING COLORECTAL CANCER SCREENING [facility] Start: [address] COLONOGRAPHY [facility] Start: 1993 DIABETES SCREEN DIABETES SCREEN [facility] Start: 1993 FECAL OCCULT BLOOD FECAL OCCULT BLOO D [facility] Start: 1993 LIPID SCREEN LIPID SCREEN [facility] Start: 1993 SIGMOIDOSCOPY SIGMOIDOSCOPY [facility] Start: 1988 Mammography MAMMOGRAM [facility] Start: 11-13-1967 Urine microalbumin profile DTAP,TDAP,TD (1 - Tdap) [facility] Start: 1966 HEPATITIS C SCREENING HEPATITIS C SC REENING [facility] Start: 1960 Adult depression screening assessment DEPRESSION SCREENING [facility] Comprehensive metabo lic 2000 panel - Serum or Plasma [facility] End: 03-03-2023 DXA-AXIAL SKELETON DXA-AXIAL SKELETON Radiology Routine Encounter for screening for osteoporosis 1 Occurrences starting 02/01/2022 until 03/03/2023 [facility] Work Phone: Comment on above: 1 Occurrences starti ng 02/01/2022 until 03/03/2023 [facility] Immunizations Immunization Date Immunization Notes Care Provider Cecy brown 11-28-2022 influenza virus vaccine, unspecified formulation [facility] 11-28-2022 influenza, high dose seasonal, preservative-free Kar Mota Other [facility] [employer] Other 11-26-2021 influenza virus vaccine, split virus (incl. purified surface antigen) Kar Mota Other [facility] [employer] Other 11-26-2021 influenza virus vaccine, unspecified formulation [facility] 05-30-2021 COVID-19 Vaccine Pfi zer - Documentation Purposes Only Kar Mota Other [facility] 12-04-2020 influenza virus vaccine, split virus (incl. purified surface antigen) Kar Mota Other [facility] [employer] Other 12-04-2020 influenza virus vaccine, unspecified formulation [facility] 11-22-2020 COVID-19 Vaccine Pfi zer - Documentation Purposes Only Kar Mota Other [facility] 04-18-2020 COVID-19 Vaccine Pfi zer - Documentation Purposes Only Kar Mota Other [facility] 03-28-2020 COVID-19 mRNA, Comirnaty (Pfizer) [facility] 03-28-2020 COVID-19 Vaccine Moderna - Documentation Purposes Only Kar Nakul Other [facility] 11-07-2019 influenza virus vaccine, split virus (incl. purified surface antigen) Kar Nakul Other [facility] [employer] Other 11-07-2019 influenza virus vaccine, unspecified formulation [facility] 11-26-2018 influenza virus vaccine, split virus (incl. purified surface antigen) Kar Mota Other [facility] [employer] Other 11-26-2018 influenza virus vaccine, unspecified formulation [facility] 12-07-2017 influenza virus vaccine, split virus (incl. purified surface antigen) Kar Mota Other [facility] [employer] Other 12-07-2017 influenza virus vaccine, unspecified formulation [facility] 12-19-2016 influenza virus vaccine, split virus (incl. purified surface antigen) Kar Nakul Other [place] Other 12-19-2016 influenza virus vaccine, unspecified formulation [facility] 12-01-2015 influenza virus vaccine, split virus (incl. purified surface antigen) Kar Nakul Other [place] [employer] Other 12-01-2015 influenza virus vaccine, unspecified formulation [facility] 05-15-2015 pneumococcal conjuga te vaccine, 13 valent Kar Mota Other [facility] 12-10-2014 influenza virus vaccine, split virus (incl. purified surface antigen) Kar Mota Other [employer] Other 12-10-2014 influenza virus vaccine, unspecified formulation [facility] 12-18-2013 tetanus and diphther ia toxoids, adsorbed, preservative free, for adult use (5 Lf of tetanus toxoid and 2 Lf of diphtheria toxoid) Kar Mota Other [facility] 2013 pneumococcal polysaccharide vaccine, 23 valent Kar Mota Other [facility] 12-17-2012 tetanus and diphther ia toxoids, adsorbed, preservative free, for adult use (5 Lf of tetanus toxoid and 2 Lf of diphtheria toxoid) Kar Mota Other [facility] Payers Date Payer Category Payer Medicare HUMANA MEDICARE HU[employer]NA MEDICARE PPO [id number] 2017-Present [phone] [facility] [id number] [place] [address] PPO [id number] 1961 Medicare [id number] 1950 Unknown [id number] 1950 Unknown [id number] 1950 Unknown [id number] 1948 Unknown [id number] 1948 Unknown [id number] 1948 Unknown [id number] 1948 Unknown [id number] 1948 Unknown [id number] 1948 Unknown [id number] 1948 Unknown [id number] 1950 Unknown [id number] Self-pay Self Pay [id number] Social History Date Type Detail Facility Start: 08-27-2021 End: 10-15-2021 Tobacco smoking status NHIS Ex-smoker [facility] History of tobacco use Current smoker [facility] History of tobacco use Cigarette Smoker [facility] Start: 10-15-2021 Tobacco use and exposure Smokeless tobacco non-user [facility] Start: 10-15-2021 End: 02-01-2022 Alcohol intake Lifetime non-drinker (finding) [facility] Start: 1950 Sex Assigned At Not on file C [facility] Start: 10-05-2021 End: 10-15-2021 Exposure to SARS-CoV-2 (event) Not sure [facility] Sex Assigned At Sex Assigned At [facility] [employer] Other Start: 1950 Sex Assigned At Female F [facility] Clinical Notes 10-15-2021 to 03-27-2023 Note Date [...] increased frequency > 3/24 hours and watery [employer] Other 11-27-2023 Evaluation note* Encounter Date Diagnosis Assessment Notes Treatment Notes Treatment Clinical Notes Dec, Pain in thoracic spine (ICD-10 - M54.6) [employer] Other 10-02-2023 Evaluation note* Encounter Date Diagnosis Assessment Notes Treatment Notes Treatment Clinical Notes Nov, Lumbar spondylosis (ICD-10 - M47.816) [employer] Other 07-31-2023 Evaluation note* Encounter Date Diagnosis [...] may cause increased bloating. Trial of Miralax [employer] Other 07-31-2023 Evaluation note* Encounter Date Diagnosis [...] but may cause increased bloating. Trial of VSHOREx [employer] Other 12-06-2022 NoteHNO ID: [id number] Author: Wellington Hong MD Service: ? Author [...] information obtained and documented by the physician political science research assistant. I examined the patient and evaluated [...] when sitting. No partha (more content not included)...[facility]12-06-2022 Instructions* Patient Instructions* Ancelmo Sandoval PA-C - [...] your usual activities immediately. [facility] History of Present illness Narrative* Wellington [...] information obtained and documented by the physician political science research assistant. I examined the patient and evaluated [...] independently gathered by the clinical air support control officer and the remaining scribed note accurately describes my personal service to the patient. Wellington Hong MD [facility]2022 NoteCONSULTATION CONSULTATION DATE: 01/18/2022 CHIEF COMPLAINT: [...] appointment to see a spinal surgeon at [facility] in the near future. PHYSICAL EXAM: [...] We shall await the patient's evaluation with [facility]. Subsequent to that, we will make [...] this in February, given her 's illness.[facility] [id number] Note CONSULTATION PROCEDURE DATE: 12/21/2021 CHIEF COMPLAINT: [...] has responded well to this treatment. [facility] [id number] NoteCONSULTATION CONSULTATION DATE: 11/30/2021 CHIEF COMPLAINT: Low [...] annually. The patient has been seen by [facility] with regards to the possibility of [...] was encouraged to maintain the communication with [facility] to see whether other options are available. We will repeat the testosterone cypionate on her return visit. The patient understands and would like to proceed. CC: Manjula Marcial M.D.[facility] [id number] NoteCONSULTATION PROCEDURE DATE: 11/23/2021 PREOPERATIVE DIAGNOSIS: Lumbar [...] try to attain a neutral posture laterally.[facility] [id number] NoteCONSULTATION CONSULTATION DATE: 11/23/2021 CHIEF COMPLAINT: Left leg pain, low back pain. HISTORY OF PRESENT ILLNESS: This is a very pleasant, 71-year-old female who is known to the [facility]. The patient has an MRI of her lumbar spine, CT of the thoracic and CT of the lumbar spine. The patient has severe rotoscoliosis. The patient was seen at the [facility]. The patient states she is functioning [...] like to proceed. CC: Manjula Marcial M.D.[facility] [id number] Miscellaneous Notes* Telephone Encounter - Cesilia Dotyins - 11/16/2021 1:46 PM EDT Received the following record(s) via fax. -MRI tspine wo(report) Date 11/03/21 Record(s) scanned into pt's chart. Cesilia Adler Images requested documented in this encounterNorwalk [facility] Hospital09-07-2022 NotePROCEDURE: CT TSPINE WO CON, [...] authenticated by: JEFF FREGOSO Date: 2021-11-03 18:57[facility] [id number] NotePROCEDURE: CT TSPINE WO CON, CT LSPINE [...] Electronically authenticated by: JEFF FREGOSO Date: 2021-11-03 18:57[facility]08-19-2022 NoteHNO ID: [id number] Author: Ancelmo Sandoval PA-C Service: ? Author Type: Physician Prn Physical Therapist Type: Progress Notes Filed: 10/18/2021 8:52 AM [...] neuromuscular referral to (more content not included)... [facility] note* Diagnosis Scoliosis of thoracolumbar spine, unspecified scoliosis type documented in this encounter [facility] note* Diagnosis Encounter for screening for osteoporosis- Primary Special screening for osteoporosis documented in this encounter [facility] noteNo InformationN[employer] Other Evaluation note* Diagnosis Onset Date Resolution Status Chronic kidney disease acute Elevated BP without diagnosis of hypertension acute VALDEZ (generalized anxiety disorder) acute GERD (gastroesophageal reflux disease) acute 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 Medicare annual wellness visit, subsequent noneactive Screening mammogram for breast cancer noneactive [facility] Work Phone: Evaluation noteNo assessment information available [facility] Work Phone: History general Narrative - Reported* [...] Colonoscopy 2021 Hospitalization History SEE SURGICAL HX [facility] [employer] Other Reason for referral (narrative)* Diagnostic Procedure Only (Routine) - Closed Specialty Diagnoses / Procedures Referred By Mouna mclean Referred To Contact XR IMAGING Diagnoses Scoliosis of thoracolumbar spine, unspecified scoliosis type Procedures XR SCOLIOSIS PA STAND/LAT 2V RADEX ENTIR THRC LMBR CRV SAC SPI W/SKULL 2/3 Ancelmo Sandoval PA-C [id number] [place] [id number] Xr Imaging Referral ID Status Reason Start Date Expiration Date V isits Requested Visits Authorized [id number] Closed Auto-Generate d Referral 10/15/2021 11/14/[address] [facility] for visit Narrative* Diagnostic Procedure Only (Routine) - Closed Specialty Diagnoses / Procedures Referred By Mouna mclean Referred To Contact XR IMAGING Diagnoses Scoliosis of thoracolumbar spine, unspecified scoliosis type Procedures XR SCOLIOSIS PA STAND/LAT 2V RADEX ENTIR THRC LMBR CRV SAC SPI W/SKULL 2/3 Ancelmo Sandoval PA-C [id number] [place] [address] Xr Imaging Referral ID Status Reason Start Date Expiration Date V isits Requested Visits Authorized [id number] Closed Auto-Generate d Referral 10/15/2021 11/14/2022 1 1 [facility] Summary Purpose Family History Relationship Condition [...] section and content) DATE CREATED AUTHOR 09/02/2021 [facility] DATE CREATED AUTHOR AUTHOR'S ORGANIZ ATION 03/07/2022 [facility] DATE CREATED AUTHOR AUTHOR'S ORGANIZ ATION 07/13/2022 [facility] Comments (unrecognize d section and content) In the event this informatio n is protected by the Federal Confidentiality of Alcohol and Drug Abuse Patient Records regulations: The Federal rules restrict any use of the information to criminally investigate or prosecute any alcohol or drug abuse patient.[facility] HospitalIn the event this information is protected by the Federal Confidentiality of Alcohol and Drug Abuse Patient Records regulations: The Federal rules restrict any use of the information to criminally investigate or prosecute any alcohol or drug abuse patient.[facility] HospitalIn the event this information is protected by the Federal Confidentiality of Alcohol and Drug Abuse Patient Records regulations: The Federal rules restrict any use of the information to criminally investigate or prosecute any alcohol or drug abuse patient.[facility] Reason for Visit (unrecogniz ed section [...] BE BASED ON THE PRIMARY CLINICAL RECORDS. [employer] [facility]. provides no warranty or guarantee of the accuracy or completeness of information in this document.
== END 2024-01-09 07:39 | disposition home or self-care (01) ==
LOC: MRI 07:38
PROVIDERS: PCP Internal Medicine; Visit Provider Anesthesiology Pain Medicine
DX: M54.16 Radiculopathy, lumbar region (principal); M51.369 Other intervertebral disc degeneration, lumbar region without mention of lumbar back pain or lower extremity pain; M41.86 Other forms of scoliosis, lumbar region
CPT/HCPCS: 72110; 72148

== ENCOUNTER 2024-01-30 13:17 | Outpatient (OUT) | payer MEDICARE, SELFPAY ==
--- NOTE | 2024-01-30 | CONS_ITS ---
CONSULTATION DATE: 01/30/2024 TO: Dr. Mota CHIEF COMPLAINT: Includes right leg pain. HISTORY OF PRESENT ILLNESS: Review of systems, past medical/surgical history were obtained. She reports the pain as being 1-7/10 pain, deep aching in character, increased with activities such as standing, walking and performing transitioning maneuvers. She feels most comfortable in the semi-recumbent position. CURRENT MEDICATION: Includes baclofen 10 mg pills, half a pill at h.s.; gabapentin 200 mg b.i.d. EXAMINATION: Notable for patient having hypoesthesia along the right L3 and L4 dermatomes, 3/5 strength of the right quadriceps, iliopsoas and anterior tibialis, depressed right patellar reflex. Straight leg raise is equivocally positive at 90 degrees. She had no signs consistent with myelopathy. 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 She had L5-S1 foraminal narrowing as well, but I do not appreciate any L5 or S1 radicular process. Patient also had significant myofascial dysfunction involving the lumbar paravertebral muscles and the erector spinae on the right side. 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 RECOMMENDATIONS: I have asked her to consider a right L3-4, L4-5 transforaminal epidural steroid injection. I have increased the gabapentin 200 mg in the morning and 300 mg at h.s. I have asked her to continue with the current dose of baclofen and to consider a neurosurgical consultation. She is requesting to see Dr. Vogel at [facility]. We have made the referral accordingly. As part of providing excellent, safe, comprehensive care, the following was completed at our patient's visit: 1. A medication reconciliation and review to ensure accurate knowledge of current/active medications, including asking our patients to inform us about any [id number] medications or herbal remedies/nutritional supplements/alternative remedies. 2. A review to specifically ensure our patients have had annual screening for: elevated body mass index (BMI, see intake chart for exact total), tobacco use, screening for depression, and screening for unhealthy alcohol use. When screening is concerning, patients are provided with education and the specific recommendation to discuss the concerning health issue and treatment options with their primary care provider. MTDD
== END 2024-01-30 13:18 | disposition home or self-care (01) ==
LOC: PM 13:18
PROVIDERS: PCP Internal Medicine; Visit Provider Anesthesiology Pain Medicine
DX: M54.16 Radiculopathy, lumbar region (principal)
CPT/HCPCS: G0463

== ENCOUNTER 2024-02-09 06:59 | Outpatient (OUT) | payer MEDICARE, SELFPAY ==
--- OUTSIDE RECORDS SUMMARY | 2024-02-09 07:03 | XMS_ITS | CCD ---
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 Name Role Phone Unavailable Primary Care Provider [...] Amoxicillin; Translations: [AMOXICILLIN] Drug Allergy 2 [facility] (14 sources) NITROFURANTOIN, MACROCRYSTALS / Nitrofurantoin, Monohydrate; Translations: [NITROFURANTOIN MONOHYD/M-CRYST] Drug Allergy 2 [facility] (16 sources) Sulfonamides (Antibiotic); Translations: [SULFA (SULFONAMIDE ANTIBIOTICS)] Drug Allergy 2 An[facility]axis [facility] (1 source) Amoxicillin Drug Allergy 1 [facility] (2 sources) Nitrofurantoin Drug Allergy 3 [facility] (2 sources) Sulfonamides (Antibiotic) Drug allergy (disorder) 3 [facility] (10 sources) Amoxicillin-Pot Clavulanate Drug allergy 6 Unknown [facility] Other (2 sources) Clavulanate Drug Allergy 4 Unknown Reaction [facility] [place] [facility] (2 sources) Nitrofurantoin Drug Allergy 4 Difficulty Breathing [facility] Medications Current Medications Medication Drug Class(es) Dates [...] 12:00am docusate sodium 50 mg / sennosides, jail 8.6 mg oral tablet (3 sources) Start: [...] on above: TAKE 1 CAPSULE BY [facility] 2 TIMES DAILY FOR 12 WEEKS Vit C,L-Yv-Qgdfv-Lutei n-Zeaxan (Preservision Areds-2) 250-90-40-1 mg Capsule (2 sources) Start: 08-28-19 Vit C,M-Qw-Gcsno-Lute in-Zeaxan (Preservision Areds-2) 250-90-40-1 mg Capsule Active 1 TAB PO Twice daily August 27, 2021 12:00am 100 ml zoledronic acid 0.05 mg/ml injection (5 sources) Bisphosphonate Start: 08-28-19 take 5 mg intravenously once Zoledronic Hlor-Luvtdnon-Gen er (Reclast) 5 mg/100 mL Piggyback Active [...] 08-01-2023 Chronic Other aftercare (2 sources) 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 Tanner Madison Basophils/100 WBC (Bld) 0.7 % Normal 0.2-2.0 [facility] Comment on above: Performed By: #### C BC ####[facility] Coyktayp[address] [place], [place] [address]Dr. Virginiasunita Los EO # 0.1 103/ul Normal 0.0-0.7 [facility] Comment on above: Performed By: #### C BC ####[facility] Snxb[address] [place], [place] [address]Dr. Tanner Madison Eosinophils/100 WBC (Bld) 1.5 % Normal 0.9-7.0 [facility] Comment on above: Performed By: #### C BC ####[facility] Tr[address] [place], [place] [address]Dr. Tanner Madison Erythrocyte distribution width (RBC) [Ratio] 13.2 % Normal 11.0-15.0 [facility] Comment on above: Performed By: #### C BC ####[facility] Jxf[address] [place], [place] [address]Dr. Tanner Madison Hematocrit (Bld) [Volume fraction] 34.1 % Critically low 36.0-48.0 [facility] Comment on above: Performed By: #### C BC ####[facility] U[address] [place], [place] [address]Dr. Tanner Madison Hemoglobin (Bld) [Mass/Vol] 11.7 g/dL Critically low 12.0-16.0 [facility] Comment on above: Performed By: #### C BC ####[facility] Frcfekeyk[address] [place], [place] [address]Dr. Tanner Madison IG # 0.02 10e3/ul Normal 0.00-0.03 [facility] Comment on above: Performed By: #### C BC ####[facility] [address] [place] [id number]. Tanner Madison IG % 0.4 % Normal 0.0-0.5 [facility] Comment on above: Performed By: #### C BC ####[facility] Xlnq[address] [place] [address]Dr. Tanner Madison LYMPH # 1.2 103/ul Normal 1.2-3.8 [facility] Comment on above: Performed By: #### C BC ####[facility] [address] [place] [address]Dr. Tanner Madison Lymphocytes/100 WBC (Bld) 25.6 % Normal 20.5-60.0 [facility] Comment on above: Performed By: #### C BC ####[facility] [address] [place] [address]Dr. Tanner Madison MANUAL DIFF REQ NO Normal [facility] Comment on above: Performed By: #### C BC ####[facility] [address] [place] [address]Dr. Virginiasunita Madison MCH (RBC) [Entitic mass] 30.9 pg Normal 26.7-34.0 [facility] Comment on above: Performed By: #### C BC ####[facility] Nat[address] [place] [address]Dr. Tanner Los MCHC (RBC) [Mass/Vol] 34.3 g/dL Normal 29.9-35.2 [facility] Comment on above: Performed By: #### C BC ####[facility] Mlz[address]ffs[address] [place] [address]Dr. Tanner Madison MCV (RBC) [Entitic vol] 90.0 fL Normal 81.0-99.0 [facility] Comment on above: Performed By: #### C BC ####[facility] [address]sfx[address] [place] [address]Dr. Tanner Madison MONO # 0.4 103/ul Normal 0.3-0.8 [facility] Comment on above: Performed By: #### C BC ####[facility] Zagc[address] [place], [place] [address]Dr. Tanner Madison Monocytes/100 WBC (Bld) 7.6 % Normal 1.7-12.0 [facility] Comment on above: Performed By: #### C BC ####[facility] [address] [place] [address]Dr. Tanner Madison NEUT # 3.0 103/ul Normal 1.4-6.5 [facility] Comment on above: Performed By: #### C BC ####[facility] [address] [place] [address]Dr. Tanner Madison Neutrophils/100 WBC (Bld) 64.2 % Normal 43.0-75.0 [facility] Comment on above: Performed By: #### C BC ####[facility] [address] [place] [address]Dr. Tanner Madison Platelet mean volume (Bld) [Entitic vol] 8.5 fL Critically low 9.5-13.5 [facility] Comment on above: Performed By: #### C BC ####[facility] [address] [place] [address]Dr. Tanner Madison PLT 269 103/ul Normal 150-450 [facility] Comment on above: Performed By: #### C BC ####[facility] [address] [place] [address]Dr. Tanner Madison RBC 3.79 106/ul Critically low 4.20-5.40 [facility] Comment on above: Performed By: #### C BC ####[facility] [address] [place] [address]Dr. Tanner Madison WBC 4.6 103/ul Normal 4.0-11.0 [facility] Comment on above: Performed By: #### C BC ####[facility] [address] [place] [address]Dr. Tanner Madison MG MAMM SCREEN 3D VIJAYA CADon 03-08-2022 MG MAMM SCREEN 3D VIJAYA CAD Patient: COURTNEY WHITE Exam Date: 03/08/2022 : 1950 Gender:F Ordering : DR KAR MOTA D.O. Admission #: [id number] Family : Order #: [id number] CLICK HERE TO VIEW EXAM RADIOLOGY REPORT [...] breast cancer at age 48. LOCATION: [facility] BREAST COMPOSITION: Extremely dense, which lowers [...] MD on 03/08/2022 at 12:18 Normal [facility] PROF CHEM 8 (BAS METB)on Anion gap [Moles/Vol] 11.0 mmol/L Normal [facility] Comment on above: Performed By: #### T TYRA, BMP #### [facility] [address] [place] [address] Dr. Tanner Madison Calcium [Mass/Vol] 9.5 mg/dL Normal 8.5-10.1 [facility] Comment on above: Performed By: #### T TYRA, BMP #### [facility] [address] [place] [address] [address] Tanner Madison Chloride [Moles/Vol] 103 mmol/L Normal 98-107 [facility] Comment on above: Performed By: #### T TYRA, BMP #### [facility] [address] [place] [address] Dr. Tanner Madison CO2 [Moles/Vol] 30.1 mmol/L Normal 21.0-32.0 [facility] Comment on above: Performed By: #### T TYRA, BMP #### [facility] [address] [place] [address] [address] Tanner Madison Creatinine [Mass/Vol] 0.98 mg/dL Normal 0.55-1.02 [facility] Comment on above: Performed By: #### T SH, BMP #### [facility] [address] [place] [address] [address] Tanner Madison EGFR-AF TURKMEN >60 Normal >=60 [facility] Comment on above: Performed By: #### T SH, BMP #### [facility] [address] [place] [address] [address] Tanner Madison EGFR-NON AF TURKMEN 56 mL/min/1.73m2 Critically low >=60 [facility] Comment on above: Performed By: #### T SH, BMP #### [facility] [address] [place] [address] Dr. Tanner Madison Glucose [Mass/Vol] 91 mg/dL Normal 74-106 [facility] Comment on above: Performed By: #### T SH, BMP #### [facility] [address] [address] [address] Tanner Madison Potassium [Moles/Vol] 4.1 mmol/L Normal 3.5-5.1 [facility] Comment on above: Performed By: #### T SH, BMP #### [facility] [address] [place] [address] Dr. Tanner Madison Sodium [Moles/Vol] 140 mmol/L Normal 136-145 [facility] Comment on above: Performed By: #### T SH, BMP #### [facility] [address] [address] [address] Tanner Madison Urea nitrogen [Mass/Vol] 14.0 mg/dL Normal 7.0-18.0 [facility] Comment on above: Performed By: #### T SH, BMP #### [facility] [address] [place] [address] [address] Tanner Madison Urea nitrogen/Creatinin e [Mass ratio] 14.3 mg/mg Normal [facility] Comment on above: Performed By: #### T SH, BMP #### [facility] [address] [place], [place] [address] Dr. Tanner Madison TSHon 03-08-2022 TSH 2.659 uIU/mL Normal 0.358-3.740 [facility] Comment on above: Performed By: #### T TYRA BMP #### [facility] [address] [place], [place] [address] Dr. Tanner Madison VITAMIN D 25 OHon 03-08-2022 VIT D 25-OH 63.4 ng/mL Normal [facility] Comment on above: Performed By: #### V ITAD ####[facility] [address] [place], [place] [address]BmDr. Tanner Madison VIT D RANGES SEE BELOW Normal [facility] Comment on above: Result Comment: <20 ng/mL Vit D deficient 20 - <30 ng/mL Vit D insufficient 30 - 100 ng/mL Vit D sufficient >100 ng/mL Potential Toxicity Performed By: #### V ITAD ####[facility] [address] [place] [id number]. Tanner Madison XR DEXA BONE DENSITYon 03-08 [...] by: MARTA ELIAS Date: 2022-03-08 10:52 Normal [facility] CNPKiki 11-16-2021 SAEED Telephone (NIQ) COURTNEY WHITE ([id number]) 1950 F Date Time Provider Department 11/16/21 [...] Status:Closed by RAYSA RICO on 11/23/21 Normal [facility] MRI LSPINE WO CONon 11-05-19 MRI [...] by: MARTA ELIAS Date: 2021-11-04 06:33 Normal [facility]-04-19 22 MRI [facility] CON EXAMINATION: MRI [facility] CON HISTORY: Scoliosis deformity of spine COMPARISON: [...] by: JEFF FREGOSO Date: 2021-11-03 19:07 Normal [facility] VIT D 25-OH LABCORPon 2021 Vitamin D, 25-Hydroxy 69.8 ng/mL Normal 30.0-100.0 [facility] Comment on above: Result Comment: Negar min D deficiency has been defined by the Temple of Medicine and an Endocrine Society practice guideline as a level of serum 25-OH vitamin D less than 20 ng/mL (1,2). The Endocrine Society went on to further define vitamin D insufficiency as a level between 21 and 29 ng/mL (2). 1. IOM (Temple of Medicine). 2010. Dietary reference intakes for calcium and D. [place]: The National Academies Press. 2. Mikal MF, Jayy LEMOS, Zi MACHADO, et al. Evaluation, treatment, and prevention of vitamin D deficiency: an Endocrine Society clinical practice guideline. JCEM. 2010; 96(7):1911-30. Performed By: #### V ITADLC #### [facility] [address] [place] [address] Dr. Tanner Madison CBC AUTO DIFFon 10-28-2021 BASO # 0.0 103/ul Normal 0.0-0.1 [facility] Comment on above: Performed By: #### C BC #### [facility] [address] [place] [address] Dr. Tanner Madison Basophils/100 WBC (Bld) 0.6 % Normal 0.2-2.0 [facility] Comment on above: Performed By: #### C BC #### [facility] [address] [place] [address] Dr. Tanner Madison EO # 0.1 103/ul Normal 0.0-0.7 [facility] Comment on above: Performed By: #### C BC #### [facility] [address] [place] [address] Dr. Tanner Madison Eosinophils/100 WBC (Bld) 1.1 % Normal 0.9-7.0 [facility] Comment on above: Performed By: #### C BC #### [facility] [address] [place] [address] Dr. Tannre Madison Erythrocyte distribution width (RBC) [Ratio] 13.5 % Normal 11.0-15.0 [facility] Comment on above: Performed By: #### C BC #### [facility] [address] [place] [address] Dr. Tanner Madison Hematocrit (Bld) [Volume fraction] 31.7 % Critically low 36.0-48.0 [facility] Comment on above: Performed By: #### C BC #### [facility] [address] [place] [address] Dr. Tanner Madison Hemoglobin (Bld) [Mass/Vol] 10.8 g/dL Critically low 12.0-16.0 [facility] Comment on above: Performed By: #### C BC #### [facility] [address] [place] [address] Dr. Tanner Madison IG # 0.01 10e3/ul Normal 0.00-0.03 [facility] Comment on above: Performed By: #### C BC #### [facility] [address] [place] [address] Dr. Tanner Madison IG % 0.2 % Normal 0.0-0.5 [facility] Comment on above: Performed By: #### C BC #### [facility] [address] [place] [address] Dr. Tanner Madison LYMPH # 1.3 103/ul Normal 1.2-3.8 [facility] Comment on above: Performed By: #### C BC #### [facility] [address] [place] [address] Dr. Tanner Madison Lymphocytes/100 WBC (Bld) 24.0 % Normal 20.5-60.0 [facility] Comment on above: Performed By: #### C BC #### [facility] [address] [place] [address] Dr. Tanner Madison MANUAL DIFF REQ NO Normal [facility] Comment on above: Performed By: #### C BC #### [facility] [address] [place] [address] Dr. Tanner Madison MCH (RBC) [Entitic mass] 31.0 pg Normal 26.7-34.0 [facility] Comment on above: Performed By: #### C BC #### [facility] [address] [place] [address] [address] Tanner Madison MCHC (RBC) [Mass/Vol] 34.1 g/dL Normal 29.9-35.2 [facility] Comment on above: Performed By: #### C BC #### [facility] [address] [place] [address] [address] Tanner Madison MCV (RBC) [Entitic vol] 91.1 fL Normal 81.0-99.0 [facility] Comment on above: Performed By: #### C BC #### [facility] [address] [place] [address] [address] Tanner Madison MONO # 0.5 103/ul Normal 0.3-0.8 [facility] Comment on above: Performed By: #### C BC #### [facility] [address] [place] [address] Dr. Tanner Madison Monocytes/100 WBC (Bld) 8.3 % Normal 1.7-12.0 [facility] Comment on above: Performed By: #### C BC #### [facility] [address] [place] [address] Dr. Tanner Madison NEUT # 3.6 103/ul Normal 1.4-6.5 [facility] Comment on above: Performed By: #### C BC #### [facility] [address] [place] [address] Dr. Tanner Madison Neutrophils/100 WBC (Bld) 65.8 % Normal 43.0-75.0 [facility] Comment on above: Performed By: #### C BC #### [facility] [address] [place] [address] Dr. Tanner Madison Platelet mean volume (Bld) [Entitic vol] 8.6 fL Critically low 9.5-13.5 [facility] Comment on above: Performed By: #### C BC #### [facility] [address] [place] [address] Dr. Tanner Madison PLT 234 103/ul Normal 150-450 [facility] Comment on above: Performed By: #### C BC #### [facility] [address] [place] [address] [address] Tanner Madison RBC 3.48 106/ul Critically low 4.20-5.40 [facility] Comment on above: Performed By: #### C BC #### [facility] [address] [place] [address] [address] Tanner Madison WBC 5.4 103/ul Normal 4.0-11.0 [facility] Comment on above: Performed By: #### C BC #### [facility] [address] [place] [address] [address] Tanner Madison PROF CHEM 8 (BAS METB)on Anion gap [Moles/Vol] 12.7 mmol/L Normal [facility] Comment on above: Performed By: #### B MP ####[facility] [address] [place] [address]DrAryan Madison Calcium [Mass/Vol] 9.2 mg/dL Normal 8.5-10.1 [facility] Comment on above: Performed By: #### B MP ####[facility] [address] [place] [address]DrAryan Madison Chloride [Moles/Vol] 102 mmol/L Normal 98-107 [facility] Comment on above: Performed By: #### B MP ####[facility] [address] [place] [address]Dr. Tanner Madison CO2 [Moles/Vol] 30.4 mmol/L Normal 21.0-32.0 [facility] Comment on above: Performed By: #### B MP ####[facility] [address] [place] [address]DrAryan Madison Creatinine [Mass/Vol] 1.07 mg/dL Critically high 0.55-1.02 [facility] Comment on above: Performed By: #### B MP ####[facility] [address] [place] [address]Dr. Tanner Madison EGFR-AF TURKMEN >60 Normal >=60 [facility] Comment on above: Performed By: #### B MP ####[facility] [address] [place] [address]Dr. Tanner Madison EGFR-NON AF TURKMEN 50 mL/min/1.73m2 Critically low >=60 [facility] Comment on above: Performed By: #### B MP ####[facility] [address] [place] [address]Dr. Tanner Madison Glucose [Mass/Vol] 99 mg/dL Normal 74-106 [facility] Comment on above: Performed By: #### B MP ####[facility] [address] [place] [address]Dr. Tanner Madison Potassium [Moles/Vol] 4.1 mmol/L Normal 3.5-5.1 [facility] Comment on above: Performed By: #### B MP ####[facility] [address] [place] [address]Dr. Tanner Madison Sodium [Moles/Vol] 141 mmol/L Normal 136-145 [facility] Comment on above: Performed By: #### B MP ####[facility] [address] [place] [address]Dr. Tanner Madison Urea nitrogen [Mass/Vol] 16.0 mg/dL Normal 7.0-18.0 [facility] Comment on above: Performed By: #### B MP ####[facility] [address] [place] [address]Dr. Tanner Madison Urea nitrogen/Creatinin e [Mass ratio] 15.0 mg/mg Normal [facility] Comment on above: Performed By: #### B MP ####[facility] [address] [place] [address]Dr. Tanner Los CNOVon 10-15-2021 CNOV Office Visit (SPNMMN ) COURTNEY WHITE ([id number]) 1950 F Date Time Provider Department 10/15/21 [...] short period (more content not included)... Normal [facility] XR SCOLIOSIS 2V PA STAND/LAT on [...] abnormality. IMPRESSION: Thoracolumbar scoliosis and degenerative changes. 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 Transcribe Date/Time: Oct 15 2021 2:52P Dictated by : CHETNA HERNANDEZ MD This examination was interpreted and the report reviewed and electronically signed by: CHETNA HERNANDEZ MD on Oct 15 2021 2:54PM EST [id number] Normal [facility] XR SCOLIOSIS PA STAND/LAT 2V on 10-15-2021 [facility] 08-27-2021 L - -------- Specimen: [id number] Received: 08/27/21 Status: VINOD Garcia Num: [id number] Spec Type: Surgical Subm Dr: Will Ma MD Tissues: A Gastric Biopsy (GASTRIC BXS) Procedures: HE Stain/2, Gross/Micro L4 -------- Patient Age/Sex Location Account Attending Physician -------- Courtney White 70/F [id number] Will Ma MD -------- SPEC NUM: [id number] RECD: 08/27/21 STATUS: VINOD GARCIA NUM: [id number] JHONNY: 08/27/21- [facility] DR: Will Ma MD ENTERED: 08/27/21 [facility] DR: SON TYPE: Surgical DEPT: S [...] microscopic findings support the above pathologic diagnosis. [id number] -------- -------- Specimen: [id number] Received: 08/27/21 Status: VINOD Radha Num: [id number] Spec Type: Surgical Subm Dr: Will Ma MD Tissues: A Gastric Biopsy (GASTRIC BXS) Procedures: SLIME Stain/2, Gross/Micro L4 -------- Patient: Courtney White [id number] (Continued) -------- Signed (signature on file) Nisreen Marquez MD 08/31/21 5249 [facility] COVID-19 FRon 08-25-2021 SARS-CoV-2 (COVID-19) RNA JEFFRY+probe Ql (Unsp spec) Negative Normal Negative [facility] [place] [facility] Comment on above: Order Comment: Healt hcare Worker?: N Result Comment: Testing for SARS-CoV-2 by RT-PCR This test was developed and its performance characteristics determined by [employer] ([email or web address]) and validated at the [facility]. This test has not been [...] is terminated or revoked sooner. PERFORMED BY: [place] [address] PATHOLOGIST CAKE WINDER NISREEN MARQUEZ M.D. Performed By: #### C OVID 19 [employer] #### [address] Vital Signs Date Time Vital Sign Value Performing Clinician Facility 08-03-2023 10:08040 Body height 160.02 cm [facility] 08-03-2023 10:08040 Body mass index (BMI) [Ratio] 19.7 kg/m2 [facility] 08-03-2023 10:08040 Body weight 50.57 kg [facility] 08-03-2023 10:08040 Diastolic blood pressure 81 mm[Hg] [facility] [place] [facility] 08-03-2023 10:08-0400 Heart rate 70 /min [facility] 08-03-2023 10:080400 Respiratory rate 12 /min [facility] 08-03-2023 10:08-0400 Systolic blood pressure 150 mm[Hg] [facility] [place] [facility] 09-26-2022 10:30-0400 Body height 160.02 cm Kar Ball Other [facility] Other 09-26-2022 10:30-0400 Body mass index (BMI) [Ratio] 19.31 kg/m2 Kar Ball Other [facility] Other 09-26-2022 10:30-0400 Body weight 49.44 kg Kar Ball Other [employer] Other 09-26-2022 10:30-0400 Diastolic blood pressure 75 mm[Hg] Kar Ball Other [employer] Other 09-26-2022 10:30-0400 Respiratory rate 12 /min Kar Ball Other [employer] Other 09-26-2022 10:30-0400 Systolic blood pressure 166 mm[Hg] Kar Ball Other [employer] Other 02-01-2022 10:22-0500 Body height 160 cm Wellington Hong MD Work Phone: [facility] 02-01-2022 10:22-0500 Body weight 49.9 kg Wellington Hong MD Work Phone: [facility] 02-01-2022 10:22-0500 Diastolic blood pressure 76 mm[Hg] Wellington Hong MD Work Phone: [facility] 02-01-2022 10:22-0500 Heart rate 71 /min Wellington Hong MD Work Phone: [facility] 02-01-2022 10:22-0500 Respiratory rate 14 /min Wellington Hong MD Work Phone: [facility] 02-01-2022 10:22-0500 SaO2% (BldA) [Mass fraction] 98 % Wellington Hong MD Work Phone: [facility] 02-01-2022 10:22-0500 Systolic blood pressure 168 mm[Hg] Wellington Hong MD Work Phone: [facility] Encounters Encounter Date Encounter Type Care Provider Facility Start: 11-16-2023 End: 11-16-2023 ambulatory [facility] Work Phone: Start: 11-16-2023 End: 11-16-2023 Patient encounter procedure [facility] Work Phone: Start: 08-03-2023 End: 08-03-2023 ambulatory [facility] Work Phone: Start: 08-03-2023 End: 08-03-2023 Patient encounter procedure [facility] Work Phone: Start: 07-19-2023 Non-patient / Non-visit [facility] Work Phone: Start: 03-27-2023 End: 03-27-2023 ambulatory Kar Ball Other [facility] Other Start: 03-27-2023 Office outpatient vi sit 15 minutes Kar Mota [facility] Start: 03-27-2023 Telephone encounter Kar Mota [facility] Start: 01-23-2023 End: 01-23-2023 ambulatory Kar Ball Other [facility] Other Start: 01-23-2023 Telephone encounter Kar Mota [facility] Start: 11-29-2022 End: 11-29-2022 ambulatory Kar Ball Other [facility] Other Start: 11-29-2022 Telephone encounter Kar Mota [facility] Start: 11-28-2022 End: 11-28-2022 ambulatory Kar Ball Other [facility] Other Start: 11-28-2022 Nursing evaluation o f patient and report Kra Mota [facility] Start: 11-28-2022 Telephone encounter Kar NAILS G [facility] Start: 10-04-2022 End: 10-04-2022 ambulatory Kar Mota Other [facility] Other Start: 10-04-2022 Telephone encounter Kar Cervantes [facility] Start: 09-26-2022 End: 09-26-2022 ambulatory Kar Mota Other [facility] Other Start: 09-26-2022 Office outpatient vi sit 15 minutes Kar Mota [facility] Start: 07-14-[address] MANJULA MARCIAL Facil ity:[facility] Start: 05-02-2022 End: 05-03-[address] MANJULA MARCIAL Facility:[facility] Start: 03-08-2022 End: 03-09-[address] MANJULA MARCIAL Facility:[facility] Start: 03-02-2022 End: 03-03-[address] MANJULA MARCIAL Facility:[facility] Start: 02-15-2022 Adult health examination Chris Mota Other [facility] Other Start: 02-01-2022 End: 02-01-2022 ambulatory ANCELMO SANDOVAL Facility:[facility] Start: 02-01-2022 End: 02-01-2022 Patient encounter procedure Wellington Hong MD Work Phone: [facility] Comment on above: Encounter for screen ing [...] Start: 10-15-2021 End: 10-15-2021 ambulatory ANCELMO SANDOVAL Facility:[facility] Start: 10-15-2021 End: 10-15-2021 Subsequent hospital [...] 02-27-2022 ADVANCE DIRECTIVE DISCUSSION ADVANCE DIRECTIVE DISCUSSION [facility] Start: 02-27-2022 DEPRESSION ASSESSMENT DEPRESSION ASS ESSMENT [facility] Start: 10-28-2021 Influenza vaccination INFLUENZA (#1) [facility] Start: 07-25-2021 COVID-19 VACCINE (5 - Booster for Pfizer series) COVID-19 VACCINE (5 - Booster for Pfizer series) [facility] Start: 02-27-2021 ADVANCE DIRECTIVE DISCUSSION ADVANCE DIRECTIVE DISCUSSION [facility] Start: 02-27-2021 DEPRESSION ASSESSMENT DEPRESSION ASS ESSMENT [facility] Start: 2013 BONE DENSITY BONE DENSITY [facility] Start: 2013 PNEUMOCOCCAL: 65+ (1 - PCV) PNEUMOCOCCAL: 65+ (1 - PCV) [facility] Start: 1998 SHINGRIX VACCINE (1 of 2) SHINGRIX VACCINE (1 of 2) [facility] Start: 1993 COLOGUARD (FIT-DNA) COLOGUARD (FIT-D NA) [facility] Start: 1993 Colonoscopy COLONOSCOPY [facility] Start: 1993 COLORECTAL CANCER SCREENING COLORECTAL CANCER SCREENING [facility] Start: [address] COLONOGRAPHY [facility] Start: 1993 DIABETES SCREEN DIABETES SCREEN [facility] Start: 1993 FECAL OCCULT BLOOD FECAL OCCULT BLOO D [facility] Start: 1993 LIPID SCREEN LIPID SCREEN [facility] Start: 1993 SIGMOIDOSCOPY SIGMOIDOSCOPY [facility] Start: 1988 Mammography MAMMOGRAM [facility] Start: 11-13-1967 Urine microalbumin profile DTAP,TDAP,TD (1 - Tdap) [facility] Start: 1966 HEPATITIS C SCREENING HEPATITIS C SC REENING [facility] Start: 1960 Adult depression screening assessment DEPRESSION SCREENING [facility] Comprehensive metabo lic 2000 panel - Serum or Plasma [facility] End: 03-03-2023 DXA-AXIAL SKELETON DXA-AXIAL SKELETON Radiology Routine Encounter for screening for osteoporosis 1 Occurrences starting 02/01/2022 until 03/03/2023 [facility] Work Phone: Comment on above: 1 Occurrences starti ng 02/01/2022 until 03/03/2023 [facility] Immunizations Immunization Date Immunization Notes Care Provider Cecy brown 11-28-2022 influenza virus vaccine, unspecified formulation [facility] 11-28-2022 influenza, high dose seasonal, preservative-free Kar Mota Other [facility] Other 11-26-2021 influenza virus vaccine, split virus (incl. purified surface antigen) Kar Mota Other [facility] Other 11-26-2021 influenza virus vaccine, unspecified formulation [facility] 05-30-2021 COVID-19 Vaccine Pfi zer - Documentation Purposes Only Kar Mota Other [facility] 12-04-2020 influenza virus vaccine, split virus (incl. purified surface antigen) Kar Mota Other [facility] Other 12-04-2020 influenza virus vaccine, unspecified formulation [facility] 11-22-2020 COVID-19 Vaccine Pfi zer - Documentation Purposes Only Kar Mota Other [facility] 04-18-2020 COVID-19 Vaccine Pfi zer - Documentation Purposes Only Kar Mota Other [facility] 03-28-2020 COVID-19 mRNA, Comirnaty (Pfizer) [facility] 03-28-2020 COVID-19 Vaccine Moderna - Documentation Purposes Only Kar Nakul Other [facility] 11-07-2019 influenza virus vaccine, split virus (incl. purified surface antigen) Kar Nakul Other [facility] Other 11-07-2019 influenza virus vaccine, unspecified formulation [facility] 11-26-2018 influenza virus vaccine, split virus (incl. purified surface antigen) Kar Mota Other [facility] Other 11-26-2018 influenza virus vaccine, unspecified formulation [facility] 12-07-2017 influenza virus vaccine, split virus (incl. purified surface antigen) Kar Mota Other [facility] Other 12-07-2017 influenza virus vaccine, unspecified formulation [facility] 12-19-2016 influenza virus vaccine, split virus (incl. purified surface antigen) Kar Nakul Other [facility] Other 12-19-2016 influenza virus vaccine, unspecified formulation [facility] 12-01-2015 influenza virus vaccine, split virus (incl. purified surface antigen) Kar Nakul Other [facility] Other 12-01-2015 influenza virus vaccine, unspecified formulation [facility] 05-15-2015 pneumococcal conjuga te vaccine, 13 valent Kar Mota Other [facility] 12-10-2014 influenza virus vaccine, split virus (incl. purified surface antigen) Kar Mota Other [facility] Other 12-10-2014 influenza virus vaccine, unspecified formulation [facility] 12-18-2013 tetanus and diphther ia toxoids, adsorbed, preservative free, for adult use (5 Lf of tetanus toxoid and 2 Lf of diphtheria toxoid) Kar Mota Other [facility] 2013 pneumococcal polysaccharide vaccine, 23 valent Kar Mota Other [facility] 12-17-2012 tetanus and diphther ia toxoids, adsorbed, preservative free, for adult use (5 Lf of tetanus toxoid and 2 Lf of diphtheria toxoid) Kar Mota Other [facility] Payers Date Payer Category Payer Medicare HUMANA MEDICARE HUMANA MEDICARE PPO [id number] 2017-Present [phone] [facility] [id number] [place] [address] PPO [id number] 1961 Medicare [id number] 1950 Unknown [id number] 1948 Unknown [id number] 1948 Unknown [id number] 1948 Unknown [id number] 1948 Unknown [id number] [id number] 1948 Unknown [id number] [id number] 1948 Unknown [id number] [id number] 1948 Unknown [id number] [id number] 1948 Unknown [id number] [id number] 1948 Unknown [id number] [id number] 1948 Unknown [id number] Self-pay Self Pay [id number] Social History Date Type Detail Facility Start: 08-27-2021 End: 10-15-2021 Tobacco smoking status NHIS Ex-smoker [facility] History of tobacco use Current smoker [facility] History of tobacco use Cigarette Smoker [facility] Start: 10-15-2021 Tobacco use and exposure Smokeless tobacco non-user [facility] Start: 10-15-2021 End: 02-01-2022 Alcohol intake Lifetime non-drinker (finding) [facility] Start: 1950 Sex Assigned At Not on file C [facility] Start: 10-05-2021 End: 10-15-2021 Exposure to SARS-CoV-2 (event) Not sure [facility] Sex Assigned At Sex Assigned At [facility] th [facility] Other Start: 1950 Sex Assigned At Female F [facility] Clinical Notes 10-15-2021 to 03-27-2023 Note [...] increased frequency > 3/24 hours and watery [facility] Other 11-27-2023 Evaluation note* Encounter Date Diagnosis Assessment Notes Treatment Notes Treatment Clinical Notes Dec, Pain in thoracic spine (ICD-10 - M54.6) [facility] Other 10-02-2023 Evaluation note* Encounter Date Diagnosis Assessment Notes Treatment Notes Treatment Clinical Notes Nov, Lumbar spondylosis (ICD-10 - M47.816) [facility] Other 07-31-2023 Evaluation note* Encounter Date Diagnosis [...] may cause increased bloating. Trial of Miralax [facility] Other 07-31-2023 Evaluation note* Encounter Date Diagnosis [...] but may cause increased bloating. Trial of Taodynex [facility] Other 12-06-2022 NoteHNO ID: [id number] Author: Wellington Hong MD Service: ? Author [...] information obtained and documented by the physician produce assistant. I examined the patient and evaluated [...] when sitting. No partha (more content not included)...[facility]12-06-2022 Instructions* Patient Instructions* Ancelmo Sandoval PA-C [...] your usual activities immediately. [facility] History of Present illness Narrative* Wellington [...] information obtained and documented by the physician produce assistant. I examined the patient and evaluated [...] Past Histories independently gathered by the clinical data support analyst and the remaining scribed note accurately describes my personal service to the patient. Wellington Hong MD [facility]22 NoteCONSULTATION CONSULTATION DATE: 01/18/2022 CHIEF COMPLAINT: [...] appointment to see a [facility] at [facility] in the near future. PHYSICAL [...] We shall await the patient's evaluation with [facility]. Subsequent to that, we will [...] this in February, given her 's illness.[facility] [id number] Note CONSULTATION PROCEDURE DATE: 12/21/2021 CHIEF COMPLAINT: [...] has responded well to this treatment. [facility] [id number] NoteCONSULTATION CONSULTATION DATE: 11/30/2021 CHIEF COMPLAINT: Low [...] annually. The patient has been seen by [facility] with regards to the possibility of surgical [...] was encouraged to maintain the communication with [facility] to see whether other options are available. We will repeat the testosterone cypionate on her return visit. The patient understands and would like to proceed. CC: Manjula Marcial M.D.[facility] [id number] NoteCONSULTATION PROCEDURE DATE: 11/23/2021 PREOPERATIVE DIAGNOSIS: Lumbar [...] try to attain a neutral posture laterally.[facility] [id number] NoteCONSULTATION CONSULTATION DATE: 11/23/2021 CHIEF COMPLAINT: Left leg pain, low back pain. HISTORY OF PRESENT ILLNESS: This is a very pleasant, 71-year-old female who is known to [facility]. The patient has an MRI of her lumbar spine, CT of the thoracic and CT of the lumbar spine. The patient has severe rotoscoliosis. The patient was seen at the [facility]. The patient states she is functioning well; [...] like to proceed. CC: Manjula Marcial M.D.[facility] [id number] Miscellaneous Notes* Telephone Encounter - Cesilia Dotyins - 11/16/2021 1:46 PM EDT Received the following record(s) via fax. -MRI tspine wo(report) Date 11/03/21 Record(s) scanned into pt's chart. Cesilia Adler Images requested documented in this encounterCity Hospital09-07-2022 NotePROCEDURE: CT TSPINE WO CON, CT [...] authenticated by: JEFF FREGOSO Date: 2021-11-03 18:57[facility] [id number] NotePROCEDURE: CT TSPINE WO CON, CT LSPINE [...] Electronically authenticated by: JEFF FREGOSO Date: 2021-11-03 18:57[facility]08-19-2022 NoteHNO ID: [id number] Author: Ancelmo Sandoval PA-C Service: ? Author Type: Physician Figurine Maker Type: Progress Notes Filed: 10/18/2021 8:52 AM [...] neuromuscular referral to (more content not included)... 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 Medicare annual wellness visit, subsequent noneactive Screening mammogram for breast cancer noneactive [facility] Work Phone: Evaluation noteNo assessment information available [facility] Work Phone: History general Narrative - [...] Colonoscopy 2021 Hospitalization History SEE SURGICAL HX [facility] Other Reason for referral (narrative)* Diagnostic Procedure Only (Routine) - Closed Specialty Diagnoses / Procedures Referred By Mouna mclean Referred To Contact XR IMAGING Diagnoses Scoliosis of thoracolumbar spine, unspecified scoliosis type Procedures XR SCOLIOSIS PA STAND/LAT 2V RADEX ENTIR THRC LMBR CRV SAC SPI W/SKULL 2/3 Ancelmo Sandoval PA-C [id number] [place] [id number] Xr Imaging Referral ID Status Reason Start Date Expiration Date V isits Requested Visits Authorized [id number] Closed Auto-Generate d Referral 10/15/2021 11/14/2022 1 1 [facility] for visit Narrative* Diagnostic Procedure Only (Routine) - Closed Specialty Diagnoses / Procedures Referred By Mouna mclean Referred To Contact XR IMAGING Diagnoses Scoliosis of thoracolumbar spine, unspecified scoliosis type Procedures XR SCOLIOSIS PA STAND/LAT 2V RADEX ENTIR THRC LMBR CRV SAC SPI W/SKULL 2/3 Ancelmo Sandoval PA-C [address] [place] [address] Xr Imaging Referral ID Status Reason Start Date Expiration Date V isits Requested Visits Authorized [id number] Closed Auto-Generate d Referral 10/15/2021 11/14/2022 1 1 [facility] Summary Purpose Family History Relationship Condition [...] section and content) DATE CREATED AUTHOR 09/02/2021 [facility] DATE CREATED AUTHOR AUTHOR'S ORGANIZ ATION 03/07/2022 [facility] DATE CREATED AUTHOR AUTHOR'S ORGANIZ ATION 07/13/2022 [facility] Comments (unrecognize d section and content) In the event this informatio n is protected by the Federal Confidentiality of Alcohol and Drug Abuse Patient Records regulations: The Federal rules restrict any use of the information to criminally investigate or prosecute any alcohol or drug abuse patient.[facility] HospitalIn the event this information is protected by the Federal Confidentiality of Alcohol and Drug Abuse Patient Records regulations: The Federal rules restrict any use of the information to criminally investigate or prosecute any alcohol or drug abuse patient.[facility] HospitalIn the event this information is protected by the Federal Confidentiality of Alcohol and Drug Abuse Patient Records regulations: The Federal rules restrict any use of the information to criminally investigate or prosecute any alcohol or drug abuse patient.[facility] Reason for Visit (unrecogniz ed section [...] BE BASED ON THE PRIMARY CLINICAL RECORDS. [facility]. provides no warranty or guarantee of the accuracy or completeness of information in this document.
[2024-02-09 07:36] LABS: Basophils Percent Auto 0.8 % (0.2-2.0); Eosinophils Absolute Auto 0.1 10^3/uL (0.0-0.7); Eosinophils Percent Auto 2.3 % (0.9-7.0); Hematocrit 34.3 % (36.0-48.0); Hemoglobin 11.3 g/dL (12.0-16.0); Immature Granulocytes Abs Auto 0.01 10^3/uL (0.00-0.03); Immature Granulocytes Pct Auto 0.2 % (0.0-0.5); Lymphocytes Absolute Auto 1.7 10^3/uL (1.2-3.8); Lymphocytes Percent Auto 33.1 % (20.5-60.0); Mean Corpuscular HGB Conc 32.9 g/dL (29.9-35.2); Mean Corpuscular Hemoglobin 30.7 pg (26.7-34.0); Mean Corpuscular Volume 93.2 fL (81.0-99.0); Mean Platelet Volume 8.6 fL (9.5-13.5); Monocytes Absolute Auto 0.5 10^3/uL (0.3-0.8); Monocytes Percent Auto 9.8 % (1.7-12.0); Neutrophils Absolute Auto 2.8 10^3/uL (1.4-6.5); Neutrophils Percent Auto 53.8 % (43.0-75.0); Platelet Count 273 10^3/uL (150-450); Red Blood Count 3.68 10^6/uL (4.20-5.40); Red Cell Distribution Width 13.9 % (11.0-15.0); White Blood Count 5.2 10^3/uL (4.0-11.0)
[2024-02-09 08:31] LABS: Calcium 9.8 mg/dL (8.5-10.1); Carbon Dioxide 31.1 mmol/L (21.0-32.0); Chloride 107 mmol/L (98-107); Estimated GFR (African America 51 (>=60 mL/min/1.73m^2); Estimated GFR (Non-African Ame 42 (>=60 mL/min/1.73m^2); Glucose 87 mg/dL (74-106); Potassium 4.1 mmol/L (3.5-5.1); Sodium 147 mmol/L (136-145)
[2024-02-09 08:44] LABS: Percent Iron Saturation 36.3 %
[2024-02-10 11:11] LABS: Vitamin B12 250 pg/mL (232-1245)
== END 2024-02-09 07:00 | disposition home or self-care (01) ==
LOC: LAB 07:00
PROVIDERS: PCP Internal Medicine; Visit Provider Internal Medicine
DX: D64.9 Anemia, unspecified (principal); N18.31 Chronic kidney disease, stage 3a
CPT/HCPCS: 36415; 80048; 82607; 82728; 82746; 83540; 83550; 85025

== ENCOUNTER 2024-02-19 06:53 | Day surgery (SDC) | payer MEDICARE, SELFPAY ==
--- OUTSIDE RECORDS SUMMARY | 2024-02-19 06:56 | XMS_ITS | CCD ---
Author Organization [facility] CliniSyoh Care Team Providers Care [employer] Superintendent Name Role Phone Unavailable Primary Care Provider [...] Amoxicillin; Translations: [AMOXICILLIN] Drug Allergy 2 Anaphylaxis [facility] (14 sources) NITROFURANTOIN, MACROCRYSTALS / Nitrofurantoin, Monohydrate; Translations: [NITROFURANTOIN MONOHYD/M-CRYST] Drug Allergy 2 Anaphylaxis [facility] (16 sources) Sulfonamides (Antibiotic); Translations: [SULFA (SULFONAMIDE ANTIBIOTICS)] Drug Allergy 2 Anaphylaxis [facility] (1 source) Amoxicillin Drug Allergy 1 [facility] (2 sources) Nitrofurantoin Drug Allergy 3 [facility] (2 sources) Sulfonamides (Antibiotic) Drug allergy (disorder) 3 [facility] (10 sources) Amoxicillin-Pot Clavulanate Drug allergy 6 Unknown [facility] Other (2 sources) Clavulanate Drug Allergy 4 Unknown Reaction [facility] (2 sources) Nitrofurantoin Drug Allergy 4 Difficulty Breathing [facility] Medications Current Medications Medication Drug Class(es) [...] 12:00am docusate sodium 50 mg / sennosides, longterm 8.6 mg oral tablet (3 sources) Start: [...] Comment on above: TAKE 1 CAPSULE BY [facility] 2 TIMES DAILY FOR 12 WEEKS Vit C,W-Pi-Tguxs-Lutei n-Zeaxan (Preservision Areds-2) 250-90-40-1 mg Capsule (2 sources) Start: 08-28-19 Vit C,J-Cr-Gaqob-Lute in-Zeaxan (Preservision Areds-2) 250-90-40-1 mg Capsule Active 1 TAB PO Twice daily August 27, 2021 12:00am 100 ml zoledronic acid 0.05 mg/ml injection (5 sources) Bisphosphonate Start: 08-28-19 take 5 mg intravenously once Zoledronic Qhhz-Bctlkywm-Dsc er (Reclast) 5 mg/100 mL Piggyback Active [...] 08-01-2023 Chronic Other aftercare (2 sources) Other terminal carman (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; Translations: [OTH SENIOR LIVING CURRENT DRUG THERAPY] Onset: 2 Episodic Other aftercare (6 sources) Long-term current use of drug therapy; Translations: [Other senior care (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] Episodic Other bone disease [...] BASO # 0.0 103/ul Normal 0.0-0.1 [facility] Comment on above: Performed By: #### C BC ####[facility] [address] [place] [address]Dr. Tanner Madison Basophils/100 WBC (Bld) 0.7 % Normal 0.2-2.0 [facility] Comment on above: Performed By: #### C BC ####[facility] [address] [place], [place] [address]Dr. Virginiasunita Los EO # 0.1 103/ul Normal 0.0-0.7 [facility] Comment on above: Performed By: #### C BC ####[facility] [address] [place], [place] [address]Dr. Tanner Madison Eosinophils/100 WBC (Bld) 1.5 % Normal 0.9-7.0 [facility] Comment on above: Performed By: #### C BC ####[facility] [address] [place], [place] [address]Dr. Tanner Madison Erythrocyte distribution width (RBC) [Ratio] 13.2 % Normal 11.0-15.0 [facility] Comment on above: Performed By: #### C BC ####[facility] U[address]ac[address] [place], [place] [address]Dr. Tanner Madison Hematocrit (Bld) [Volume fraction] 34.1 % Critically low 36.0-48.0 [facility] Comment on above: Performed By: #### C BC ####[facility] Zqbbo[address] [place], [place] [address]Dr. Tanner Madison Hemoglobin (Bld) [Mass/Vol] 11.7 g/dL Critically low 12.0-16.0 [facility] Comment on above: Performed By: #### C BC ####[facility] [address] [place], [place] [address]Dr. Tanner Madison IG # 0.02 10e3/ul Normal 0.00-0.03 [facility] Comment on above: Performed By: #### C BC ####[facility] [address] [place] [id number]. Tanner Madison IG % 0.4 % Normal 0.0-0.5 [facility] Comment on above: Performed By: #### C BC ####[facility] [address]ew[address] [place] [address]Dr. Tanner Madison LYMPH # 1.2 103/ul Normal 1.2-3.8 [facility] Comment on above: Performed By: #### C BC ####[facility] [address] [place] [address]Dr. Tanner Madison Lymphocytes/100 WBC (Bld) 25.6 % Normal 20.5-60.0 [facility] Comment on above: Performed By: #### C BC ####[facility] [address]joineyo[address] [place] [address]Dr. Tanner Madison MANUAL DIFF REQ NO Normal [facility] Comment on above: Performed By: #### C BC ####[facility] [address] [place] [address]Dr. Virginiasunita Madison MCH (RBC) [Entitic mass] 30.9 pg Normal 26.7-34.0 [facility] Comment on above: Performed By: #### C BC ####[facility] [address]jcrlsx[address] [place] [address]Dr. Tanner Los MCHC (RBC) [Mass/Vol] 34.3 g/dL Normal 29.9-35.2 [facility] Comment on above: Performed By: #### C BC ####[facility] [address] [place] [address]Dr. Tanner Madison MCV (RBC) [Entitic vol] 90.0 fL Normal 81.0-99.0 [facility] Comment on above: Performed By: #### C BC ####[facility] [address]fcp[address]ru[address] [place] [address]Dr. Tanner Madison MONO # 0.4 103/ul Normal 0.3-0.8 [facility] Comment on above: Performed By: #### C BC ####[facility] E[address] [place], [place] [address]Dr. Tanner Madison Monocytes/100 WBC (Bld) 7.6 % Normal 1.7-12.0 [facility] Comment on above: Performed By: #### C BC ####[facility] [address]ns[address] [place] [address]Dr. Tanner Madison NEUT # 3.0 103/ul Normal 1.4-6.5 [facility] Comment on above: Performed By: #### C BC ####[facility] [address]fpwhxk[address] [place] [address]Dr. Tanner Madison Neutrophils/100 WBC (Bld) 64.2 % Normal 43.0-75.0 [facility] Comment on above: Performed By: #### C BC ####[facility] [address] [place] [address]Dr. Tanner Madison Platelet mean volume (Bld) [Entitic vol] 8.5 fL Critically low 9.5-13.5 [facility] Comment on above: Performed By: #### C BC ####[facility] [address]rey[address] [place] [address]Dr. Tanner Madison PLT 269 103/ul Normal 150-450 [facility] Comment on above: Performed By: #### C BC ####[facility] [address]tvn[address] [place] [address]Dr. Tanner Madison RBC 3.79 106/ul Critically low 4.20-5.40 [facility] Comment on above: Performed By: #### C BC ####[facility] [address] [place] [address]Dr. Tanner Madison WBC 4.6 103/ul Normal 4.0-11.0 [facility] Comment on above: Performed By: #### C BC ####[facility] [address] [place] [address]Dr. Tanner Madison MG MAMM SCREEN 3D VIJAYA CADon 03-08-2022 MG MAMM SCREEN 3D VIJAYA CAD Patient: COURTNEY WHITE Exam Date: 03/08/2022 : 1950 Gender:F Ordering : DR KAR MOTA D.O. Admission #: [id number] Family : Order #: [id number] CLICK HERE TO VIEW EXAM RADIOLOGY REPORT [...] breast cancer at age 48. LOCATION: [facility] BREAST COMPOSITION: Extremely dense, which lowers [...] MD on 03/08/2022 at 12:18 Normal [facility] PROF CHEM 8 (BAS METB)on Anion gap [Moles/Vol] 11.0 mmol/L Normal [facility] Comment on above: Performed By: #### T TYRA, BMP #### [facility] [address] [place] [address] Dr. Tanner Madison Calcium [Mass/Vol] 9.5 mg/dL Normal 8.5-10.1 [facility] Comment on above: Performed By: #### T TYRA, BMP #### [facility] [address] [place] [address] [address] Tanner Madison Chloride [Moles/Vol] 103 mmol/L Normal 98-107 [facility] Comment on above: Performed By: #### T TYRA, BMP #### [facility] [address] [place] [address] Dr. Tanner Madison CO2 [Moles/Vol] 30.1 mmol/L Normal 21.0-32.0 [facility] Comment on above: Performed By: #### T TYRA, BMP #### [facility] [address] [place] [address] [address] Tanner Madison Creatinine [Mass/Vol] 0.98 mg/dL Normal 0.55-1.02 [facility] Comment on above: Performed By: #### T SH, BMP #### [facility] [address] [place] [address] [address] Tanner Madison EGFR-AF CZECH >60 Normal >=60 [facility] Comment on above: Performed By: #### T SH, BMP #### [facility] [address] [place] [address] [address] Tanner Madison EGFR-NON AF CZECH 56 mL/min/1.73m2 Critically low >=60 [facility] Comment on above: Performed By: #### T SH, BMP #### [facility] [address] [place] [address] Dr. Tanner Madison Glucose [Mass/Vol] 91 mg/dL Normal 74-106 [facility] Comment on above: Performed By: #### T SH, BMP #### [facility] [address] [place] [address] [address] Tanner Madison Potassium [Moles/Vol] 4.1 mmol/L Normal 3.5-5.1 [facility] Comment on above: Performed By: #### T SH, BMP #### [facility] [address] [place] [address] Dr. Tanner Madison Sodium [Moles/Vol] 140 mmol/L Normal 136-145 [facility] Comment on above: Performed By: #### T SH, BMP #### [facility] [address] [place] [address] [address] Tanner Madison Urea nitrogen [Mass/Vol] 14.0 mg/dL Normal 7.0-18.0 [facility] Comment on above: Performed By: #### T SH, BMP #### [facility] [address] [place] [address] [address] Tanner Madison Urea nitrogen/Creatinin e [Mass ratio] 14.3 mg/mg Normal [facility] Comment on above: Performed By: #### T SH, BMP #### [facility] [address] [place], [place] [address] Dr. Tanner Madison TSHon 03-08-2022 TSH 2.659 uIU/mL Normal 0.358-3.740 [facility] Comment on above: Performed By: #### T TYRA BMP #### [facility] [address], [place] [address] Dr. Tanner Madison VITAMIN D 25 OHon 03-08-2022 VIT D 25-OH 63.4 ng/mL Normal [facility] Comment on above: Performed By: #### V ITAD ####[facility] [address] [place], [place] [address]Dr. Tanner Madison VIT D RANGES SEE BELOW Normal [facility] Comment on above: Result Comment: <20 ng/mL Vit D deficient 20 - <30 ng/mL Vit D insufficient 30 - 100 ng/mL Vit D sufficient >100 ng/mL Potential Toxicity Performed By: #### V ITAD ####[facility] [address] [place] [id number]. Tanner Madison XR DEXA BONE DENSITYon 03-08 [...] by: MARTA ELIAS Date: 2022-03-08 10:52 Normal [facility] CNPKiki 11-16-2021 SAEED Telephone (NIQ) COURTNEY WHITE ([id number]) 1950 F Date Time Provider Department 11/16/21 [...] Status:Closed by RAYSA RICO on 11/23/21 Normal [facility] MRI LSPINE WO CONon 11-05-19 MRI [...] by: MARTA ELIAS Date: 2021-11-04 06:33 Normal [facility]-19 22 MRI [facility] CON EXAMINATION: MRI [facility] CON HISTORY: Scoliosis deformity of [...] by: JEFF FREGOSO Date: 2021-11-03 19:07 Normal [facility] VIT D 25-OH LABCORPon 2021 Vitamin D, 25-Hydroxy 69.8 ng/mL Normal 30.0-100.0 [facility] Comment on above: Result Comment: Negar min D deficiency has been defined by the [place] of [employer] and an Endocrine Society practice guideline as a level of serum 25-OH vitamin D less than 20 ng/mL (1,2). The Endocrine Society went on to further define vitamin D insufficiency as a level between 21 and 29 ng/mL (2). 1. IOM ([place] of [employer]). 2010. Dietary reference intakes for calcium and D. [place]: The National Academies Press. 2. Mikal MF, Jayy LEMOS, Zi MACHADO, et al. Evaluation, treatment, and prevention of vitamin D deficiency: an Endocrine Society clinical practice guideline. JCEM. 2010; 96(7):1911-30. Performed By: #### V ITADLC #### [facility] [address] [place] [address] Dr. Tanner Madison CBC AUTO DIFFon 10-28-2021 BASO # 0.0 103/ul Normal 0.0-0.1 [facility] Comment on above: Performed By: #### C BC #### [facility] [address] [place] [address] Dr. Tanner Madison Basophils/100 WBC (Bld) 0.6 % Normal 0.2-2.0 [facility] Comment on above: Performed By: #### C BC #### [facility] [address] [place] [address] Dr. Tanner Madison EO # 0.1 103/ul Normal 0.0-0.7 [facility] Comment on above: Performed By: #### C BC #### [facility] [address] [place] [address] Dr. Tanner Madison Eosinophils/100 WBC (Bld) 1.1 % Normal 0.9-7.0 [facility] Comment on above: Performed By: #### C BC #### [facility] [address] [place] [address] Dr. Tanner Madison Erythrocyte distribution width (RBC) [Ratio] 13.5 % Normal 11.0-15.0 [facility] Comment on above: Performed By: #### C BC #### [facility] [address] [place] [address] Dr. Tanner Madison Hematocrit (Bld) [Volume fraction] 31.7 % Critically low 36.0-48.0 [facility] Comment on above: Performed By: #### C BC #### [facility] [address] [place] [address] Dr. Tanner Madison Hemoglobin (Bld) [Mass/Vol] 10.8 g/dL Critically low 12.0-16.0 [facility] Comment on above: Performed By: #### C BC #### [facility] [address] [place] [address] Dr. Tanner Madison IG # 0.01 10e3/ul Normal 0.00-0.03 [facility] Comment on above: Performed By: #### C BC #### [facility] [address] [place] [address] Dr. Tanner Madison IG % 0.2 % Normal 0.0-0.5 [facility] Comment on above: Performed By: #### C BC #### [facility] [address] [place] [address] Dr. Tanner Madison LYMPH # 1.3 103/ul Normal 1.2-3.8 [facility] Comment on above: Performed By: #### C BC #### [facility] [address] [place] [address] Dr. Tanner Madison Lymphocytes/100 WBC (Bld) 24.0 % Normal 20.5-60.0 [facility] Comment on above: Performed By: #### C BC #### [facility] [address] [place] [address] Dr. Tanner Madison MANUAL DIFF REQ NO Normal [facility] Comment on above: Performed By: #### C BC #### [facility] [address] [place] [address] Dr. Tanner Madison MCH (RBC) [Entitic mass] 31.0 pg Normal 26.7-34.0 [facility] Comment on above: Performed By: #### C BC #### [facility] [address] [place] [address] [address] Tanner Madison MCHC (RBC) [Mass/Vol] 34.1 g/dL Normal 29.9-35.2 [facility] Comment on above: Performed By: #### C BC #### [facility] [address] [place] [address] [address] Tanner Madison MCV (RBC) [Entitic vol] 91.1 fL Normal 81.0-99.0 [facility] Comment on above: Performed By: #### C BC #### [facility] [address] [place] [address] [address] Tanner Madison MONO # 0.5 103/ul Normal 0.3-0.8 [facility] Comment on above: Performed By: #### C BC #### [facility] [address] [place] [address] Dr. Tanner Madison Monocytes/100 WBC (Bld) 8.3 % Normal 1.7-12.0 [facility] Comment on above: Performed By: #### C BC #### [facility] [address] [place] [address] Dr. Tanner Madison NEUT # 3.6 103/ul Normal 1.4-6.5 [facility] Comment on above: Performed By: #### C BC #### [facility] [address] [place] [address] Dr. Tanner Madison Neutrophils/100 WBC (Bld) 65.8 % Normal 43.0-75.0 [facility] Comment on above: Performed By: #### C BC #### [facility] [address] [place] [address] Dr. Tanner Madison Platelet mean volume (Bld) [Entitic vol] 8.6 fL Critically low 9.5-13.5 [facility] Comment on above: Performed By: #### C BC #### [facility] [address] [place] [address] Dr. Tanner Madison PLT 234 103/ul Normal 150-450 [facility] Comment on above: Performed By: #### C BC #### [facility] [address] [place] [address] [address] Tanner Madison RBC 3.48 106/ul Critically low 4.20-5.40 [facility] Comment on above: Performed By: #### C BC #### [facility] [address] [place] [address] [address] Tanner Madison WBC 5.4 103/ul Normal 4.0-11.0 [facility] Comment on above: Performed By: #### C BC #### [facility] [address] [place] [address] [address] Tanner Madison PROF CHEM 8 (BAS METB)on Anion gap [Moles/Vol] 12.7 mmol/L Normal [facility] Comment on above: Performed By: #### B MP ####[facility] [address] [place] [address]DrAryan Madison Calcium [Mass/Vol] 9.2 mg/dL Normal 8.5-10.1 [facility] Comment on above: Performed By: #### B MP ####[facility] [address] [place] [address]DrAryan Madison Chloride [Moles/Vol] 102 mmol/L Normal 98-107 [facility] Comment on above: Performed By: #### B MP ####[facility] [address] [place] [address]Dr. Tanner Madison CO2 [Moles/Vol] 30.4 mmol/L Normal 21.0-32.0 [facility] Comment on above: Performed By: #### B MP ####[facility] [address] [place] [address]DrAryan Madison Creatinine [Mass/Vol] 1.07 mg/dL Critically high 0.55-1.02 [facility] Comment on above: Performed By: #### B MP ####[facility] [address] [place] [address]Dr. Tanner Madison EGFR-AF CZECH >60 Normal >=60 [facility] Comment on above: Performed By: #### B MP ####[facility] [address] [place] [address]Dr. Tanner Madison EGFR-NON AF CZECH 50 mL/min/1.73m2 Critically low >=60 [facility] Comment on above: Performed By: #### B MP ####[facility] [address] [place] [address]Dr. Tanner Madison Glucose [Mass/Vol] 99 mg/dL Normal 74-106 [facility] Comment on above: Performed By: #### B MP ####[facility] [address] [place] [address]Dr. Tanner Madison Potassium [Moles/Vol] 4.1 mmol/L Normal 3.5-5.1 [facility] Comment on above: Performed By: #### B MP ####[facility] [address] [place] [address]Dr. Tanner Madison Sodium [Moles/Vol] 141 mmol/L Normal 136-145 [facility] Comment on above: Performed By: #### B MP ####[facility] [address] [place] [address]Dr. Tanner Madison Urea nitrogen [Mass/Vol] 16.0 mg/dL Normal 7.0-18.0 [facility] Comment on above: Performed By: #### B MP ####[facility] [address] [place] [address]Dr. Tanner Madison Urea nitrogen/Creatinin e [Mass ratio] 15.0 mg/mg Normal [facility] Comment on above: Performed By: #### B MP ####[facility] [address] [place] [address]Dr. Tanner Los CNOVon 10-15-2021 CNOV Office Visit (SPNMMN ) COURTNEY WHITE ([id number]) 1950 F Date Time Provider Department 10/15/21 [...] short period (more content not included)... Normal [facility] XR SCOLIOSIS 2V PA STAND/LAT on [...] abnormality. IMPRESSION: Thoracolumbar scoliosis and degenerative changes. Economic Historian: PSCB Transcribe Date/Time: Oct 15 2021 2:52P Dictated by : CHETNA HERNANDEZ MD This examination was interpreted and the report reviewed and electronically signed by: CHETNA HERNANDEZ MD on Oct 15 2021 2:54PM EST [id number] Normal [facility] XR SCOLIOSIS PA STAND/LAT 2V on 10-15-2021 [facility] 08-27-2021 L - -------- Specimen: [id number] Received: 08/27/21 Status: VINOD Garcia Num: [id number] Spec Type: Surgical Subm Dr: Will Ma MD Tissues: A Gastric Biopsy (GASTRIC BXS) Procedures: HE Stain/2, Gross/Micro L4 -------- Patient Age/Sex Location Account Attending Physician -------- Courtney White 70/F [id number] Will Ma MD -------- SPEC NUM: [id number] RECD: 08/27/21 STATUS: VINOD GARCIA NUM: [id number] JHONNY: 08/27/21- [facility] DR: Will Ma MD ENTERED: 08/27/[address] [facility] [address]: SON TYPE: Surgical DEPT: S [...] microscopic findings support the above pathologic diagnosis. [id number] -------- -------- Specimen: [id number] Received: 08/27/21 Status: VINOD Radha Num: [id number] Spec Type: Surgical Subm Dr: Will Ma MD Tissues: A Gastric Biopsy (GASTRIC BXS) Procedures: SLIME Stain/2, Gross/Micro L4 -------- Patient: Courtney White [id number] (Continued) -------- Signed (signature on file) Nisreen Marquez MD 08/31/21 3112 [facility] COVID-19 FRon 08-25-2021 SARS-CoV-2 (COVID-19) RNA JEFFRY+probe Ql (Unsp spec) Negative Normal Negative [facility] Comment on above: Order Comment: Healt hcare Worker?: N Result Comment: Testing for SARS-CoV-2 by RT-PCR This test was developed and its performance characteristics determined by [employer] and validated at the [facility]. This test has not been FDA [...] is terminated or revoked sooner. PERFORMED BY: [place] [address] PATHOLOGIST MILK CONDENSER NISREEN MARQUEZ M.D. Performed By: #### C OVID 19 [facility] [place] #### [address] Vital Signs Date Time Vital Sign Value Performing Clinician Facility 08-03-2023 10:08040 Body height 160.02 cm [facility] 08-03-2023 10:08040 Body mass index (BMI) [Ratio] 19.7 kg/m2 [facility] 08-03-2023 10:08040 Body weight 50.57 kg [facility] 08-03-2023 10:08040 Diastolic blood pressure 81 mm[Hg] [facility] 08-03-2023 10:08-0400 Heart rate 70 /min [facility] 08-03-2023 10:080400 Respiratory rate 12 /min [facility] 08-03-2023 10:08-0400 Systolic blood pressure 150 mm[Hg] [facility] 09-26-2022 10:30-0400 Body height 160.02 cm Kar Ball Other [facility] Other 09-26-2022 10:30-0400 Body mass index (BMI) [Ratio] 19.31 kg/m2 Kar Ball Other [facility] Other 09-26-2022 10:30-0400 Body weight 49.44 kg Kar Ball Other [facility] Other 09-26-2022 10:30-0400 Diastolic blood pressure 75 mm[Hg] Kar Ball Other [facility] Other 09-26-2022 10:30-0400 Respiratory rate 12 /min Kar Ball Other [facility] Other 09-26-2022 10:30-0400 Systolic blood pressure 166 mm[Hg] Kar Ball Other [facility] Other 02-01-2022 10:22-0500 Body height 160 cm Wellington Hong MD Work Phone: [facility] 02-01-2022 10:22-0500 Body weight 49.9 kg Wellington Hong MD Work Phone: [facility] 02-01-2022 10:22-0500 Diastolic blood pressure 76 mm[Hg] Wellington Hong MD Work Phone: [facility] 02-01-2022 10:22-0500 Heart rate 71 /min Wellington Hong MD Work Phone: [facility] 02-01-2022 10:22-0500 Respiratory rate 14 /min Wellington Hong MD Work Phone: [facility] 02-01-2022 10:22-0500 SaO2% (BldA) [Mass fraction] 98 % Wellington Hong MD Work Phone: [facility] 02-01-2022 10:22-0500 Systolic blood pressure 168 mm[Hg] Wellington Hong MD Work Phone: [facility] Encounters Encounter Date Encounter Type Care Provider Facility Start: 11-16-2023 End: 11-16-2023 ambulatory [facility] Work Phone: Start: 11-16-2023 End: 11-16-2023 Patient encounter procedure [facility] Work Phone: Start: 08-03-2023 End: 08-03-2023 ambulatory [facility] Work Phone: Start: 08-03-2023 End: 08-03-2023 Patient encounter procedure [facility] Work Phone: Start: 07-19-2023 Non-patient / Non-visit [facility] Work Phone: Start: 03-27-2023 End: 03-27-2023 ambulatory Kar Ball Other [facility] Other Start: 03-27-2023 Office outpatient vi sit 15 minutes Kar Mota [facility] Start: 03-27-2023 Telephone encounter Kar Mota FP [facility] Start: 01-23-2023 End: 01-23-2023 ambulatory Kar Ball Other [employer] Other Start: 01-23-2023 Telephone encounter Kar Mota [facility] Start: 11-29-2022 End: 11-29-2022 ambulatory Kar Ball Other [facility] Other Start: 11-29-2022 Telephone encounter Kar Mota [facility] Start: 11-28-2022 End: 11-28-2022 ambulatory Kar Ball Other [facility] Other Start: 11-28-2022 Nursing evaluation o f patient and report Kar Mota [facility] Start: 11-28-2022 Telephone encounter Kar NAILS [facility] Start: 10-04-2022 End: 10-04-2022 ambulatory Kar Mota Other [employer] Other Start: 10-04-2022 Telephone encounter Kar Cervantes [facility] Start: 09-26-2022 End: 09-26-2022 ambulatory Kar Mota Other [employer] Other Start: 09-26-2022 Office outpatient vi sit 15 minutes Kar Mota [facility] Start: 07-14-[address] MANJULA MARCIAL Facil ity:[facility]1 Start: 05-02-2022 End: 05-03-[address] MANJULA MARCIAL Facility:[facility] Start: 03-08-2022 End: 03-09-[address] MANJULA MARCIAL Facility:[facility] Start: 03-02-2022 End: 03-03-[address] MANJULA MARCIAL Facility:[facility] Start: 02-15-2022 Adult health examination Chris Mota Other [employer] Other Start: 02-01-2022 End: 02-01-2022 ambulatory ANCELMO SANDOVAL Facility:[facility] Start: 02-01-2022 End: 02-01-2022 Patient encounter procedure Wellington Hong MD Work Phone: [facility] Comment on above: Encounter for screen ing [...] Start: 10-15-2021 End: 10-15-2021 ambulatory ANCELMO SANDOVAL Facility:[facility] Start: 10-15-2021 End: 10-15-2021 Subsequent hospital visit [...] 02-27-2022 ADVANCE DIRECTIVE DISCUSSION ADVANCE DIRECTIVE DISCUSSION [facility] Start: 02-27-2022 DEPRESSION ASSESSMENT DEPRESSION ASS ESSMENT [facility] Start: 10-28-2021 Influenza vaccination INFLUENZA (#1) [facility] Start: 07-25-2021 COVID-19 VACCINE (5 - Booster for Pfizer series) COVID-19 VACCINE (5 - Booster for Pfizer series) [facility] Start: 02-27-2021 ADVANCE DIRECTIVE DISCUSSION ADVANCE DIRECTIVE DISCUSSION [facility] Start: 02-27-2021 DEPRESSION ASSESSMENT DEPRESSION ASS ESSMENT [facility] Start: 2013 BONE DENSITY BONE DENSITY [facility] Start: 2013 PNEUMOCOCCAL: 65+ (1 - PCV) PNEUMOCOCCAL: 65+ (1 - PCV) [facility] Start: 1998 SHINGRIX VACCINE (1 of 2) SHINGRIX VACCINE (1 of 2) [facility] Start: 1993 COLOGUARD (FIT-DNA) COLOGUARD (FIT-D NA) [facility] Start: 1993 Colonoscopy COLONOSCOPY [facility] Start: 1993 COLORECTAL CANCER SCREENING COLORECTAL CANCER SCREENING [facility] Start: [address] COLONOGRAPHY [facility] Start: 1993 DIABETES SCREEN DIABETES SCREEN [facility] Start: 1993 FECAL OCCULT BLOOD FECAL OCCULT BLOO D [facility] Start: 1993 LIPID SCREEN LIPID SCREEN [facility] Start: 1993 SIGMOIDOSCOPY SIGMOIDOSCOPY [facility] Start: 1988 Mammography MAMMOGRAM [facility] Start: 11-13-1967 Urine microalbumin profile DTAP,TDAP,TD (1 - Tdap) [facility] Start: 1966 HEPATITIS C SCREENING HEPATITIS C SC REENING [facility] Start: 1960 Adult depression screening assessment DEPRESSION SCREENING [facility] Comprehensive metabo lic 2000 panel - Serum or Plasma [facility] End: 03-03-2023 DXA-AXIAL SKELETON DXA-AXIAL SKELETON Radiology Routine Encounter for screening for osteoporosis 1 Occurrences starting 02/01/2022 until 03/03/2023 [facility] Work Phone: Comment on above: 1 Occurrences starti ng 02/01/2022 until 03/03/2023 [facility] Immunizations Immunization Date Immunization Notes Care Provider Cecy brown 11-28-2022 influenza virus vaccine, unspecified formulation [facility] 11-28-2022 influenza, high dose seasonal, preservative-free Kar Mota Other [facility] [employer] Other 11-26-2021 influenza virus vaccine, split virus (incl. purified surface antigen) Kar Mota Other [facility] [employer] Other 11-26-2021 influenza virus vaccine, unspecified formulation [facility] 05-30-2021 COVID-19 Vaccine Pfi zer - Documentation Purposes Only Kar Mota Other [facility] 12-04-2020 influenza virus vaccine, split virus (incl. purified surface antigen) Kar Mota Other [facility] [employer] Other 12-04-2020 influenza virus vaccine, unspecified formulation [facility] 11-22-2020 COVID-19 Vaccine Pfi zer - Documentation Purposes Only Kar Mota Other [facility] 04-18-2020 COVID-19 Vaccine Pfi zer - Documentation Purposes Only Kar Mota Other [facility] 03-28-2020 COVID-19 mRNA, Comirnaty (Pfizer) [facility] 03-28-2020 COVID-19 Vaccine Moderna - Documentation Purposes Only Kar Nakul Other [facility] 11-07-2019 influenza virus vaccine, split virus (incl. purified surface antigen) Kar Nakul Other [facility] [employer] Other 11-07-2019 influenza virus vaccine, unspecified formulation [facility] 11-26-2018 influenza virus vaccine, split virus (incl. purified surface antigen) Kar Mota Other [facility] [employer] Other 11-26-2018 influenza virus vaccine, unspecified formulation [facility] 12-07-2017 influenza virus vaccine, split virus (incl. purified surface antigen) Kar Mota Other [facility] [employer] Other 12-07-2017 influenza virus vaccine, unspecified formulation [facility] 12-19-2016 influenza virus vaccine, split virus (incl. purified surface antigen) Kar Nakul Other [facility] Other 12-19-2016 influenza virus vaccine, unspecified formulation [facility] 12-01-2015 influenza virus vaccine, split virus (incl. purified surface antigen) Kar Nakul Other [facility] Other 12-01-2015 influenza virus vaccine, unspecified formulation [facility] 05-15-2015 pneumococcal conjuga te vaccine, 13 valent Kar Mota Other [facility] 12-10-2014 influenza virus vaccine, split virus (incl. purified surface antigen) Kar Mota Other [employer] Other 12-10-2014 influenza virus vaccine, unspecified formulation [facility] 12-18-2013 tetanus and diphther ia toxoids, adsorbed, preservative free, for adult use (5 Lf of tetanus toxoid and 2 Lf of diphtheria toxoid) Kar Mota Other [facility] 2013 pneumococcal polysaccharide vaccine, 23 valent Kar Mota Other [facility] 12-17-2012 tetanus and diphther ia toxoids, adsorbed, preservative free, for adult use (5 Lf of tetanus toxoid and 2 Lf of diphtheria toxoid) Kar Mota Other [facility] Payers Date Payer Category Payer Medicare HUMANA MEDICARE HU[employer]NA MEDICARE PPO [id number] 2017-Present [phone] [facility] [id number] [place] [address] PPO [id number] 1961 Medicare [id number] 1950 Unknown [id number] 1948 Unknown [id number] 1948 Unknown [id number] 1948 Unknown [id number] 1948 Unknown [id number] 1948 Unknown [id number] 1948 Unknown [id number] 1948 Unknown [id number] 1948 Unknown [id number] 1948 Unknown [id number] 1948 Unknown [id number] Self-pay Self Pay [id number] Social History Date Type Detail Facility Start: 08-27-2021 End: 10-15-2021 Tobacco smoking status NHIS Ex-smoker [facility] History of tobacco use Current smoker [facility] History of tobacco use Cigarette Smoker [facility] Start: 10-15-2021 Tobacco use and exposure Smokeless tobacco non-user [facility] Start: 10-15-2021 End: 02-01-2022 Alcohol intake Lifetime non-drinker (finding) [facility] Start: 1950 Sex Assigned At Not on file C [facility] Start: 10-05-2021 End: 10-15-2021 Exposure to SARS-CoV-2 (event) Not sure [facility] Sex Assigned At Sex Assigned At [facility] th [employer] Other Start: 1950 Sex Assigned At Female [facility] Clinical Notes 10-15-2021 to 03-27-2023 Note [...] increased frequency > 3/24 hours and watery [employer] Other 11-27-2023 Evaluation note* Encounter Date Diagnosis Assessment Notes Treatment Notes Treatment Clinical Notes Dec, Pain in thoracic spine (ICD-10 - M54.6) [facility] Other 10-02-2023 Evaluation note* Encounter Date Diagnosis Assessment Notes Treatment Notes Treatment Clinical Notes Nov, Lumbar spondylosis (ICD-10 - M47.816) [facility] Other 07-31-2023 Evaluation note* Encounter Date Diagnosis [...] may cause increased bloating. Trial of Miralax [employer] Other 07-31-2023 Evaluation note* Encounter Date Diagnosis [...] but may cause increased bloating. Trial of [employer] Other 12-06-2022 NoteHNO ID: [id number] Author: Wellington Hong MD Service: ? Author [...] information obtained and documented by the physician esl instructional assistant. I examined the patient and evaluated [...] when sitting. No partha (more content not included)...[facility]12-06-2022 Instructions* Patient Instructions* Ancelmo Sandoval PA-C [...] your usual activities immediately. [facility] History of Present illness Narrative* Wellington [...] information obtained and documented by the physician esl instructional assistant. I examined the patient and evaluated [...] Past Histories independently gathered by the clinical technician support association and the remaining scribed note accurately describes my personal service to the patient. Wellington Hong MD [facility] NoteCONSULTATION CONSULTATION DATE: 01/18/2022 CHIEF COMPLAINT: [...] appointment to see a spinal surgeon at [facility] in the near future. PHYSICAL EXAM: [...] We shall await the patient's evaluation with [facility]. Subsequent to that, we will make [...] this in February, given her 's illness.[facility] [id number] Note CONSULTATION PROCEDURE DATE: 12/21/2021 CHIEF COMPLAINT: [...] has responded well to this treatment. [facility] [id number] NoteCONSULTATION CONSULTATION DATE: 11/30/2021 CHIEF COMPLAINT: Low [...] annually. The patient has been seen by [facility] with regards to the possibility of [...] was encouraged to maintain the communication with [facility] to see whether other options are available. We will repeat the testosterone cypionate on her return visit. The patient understands and would like to proceed. CC: Manjula Marcial M.D.[facility] [id number] NoteCONSULTATION PROCEDURE DATE: 11/23/2021 PREOPERATIVE DIAGNOSIS: Lumbar [...] try to attain a neutral posture laterally.[facility] [id number] NoteCONSULTATION CONSULTATION DATE: 11/23/2021 CHIEF COMPLAINT: Left leg pain, low back pain. HISTORY OF PRESENT ILLNESS: This is a very pleasant, 71-year-old female who is known to the [facility]. The patient has an MRI of her lumbar spine, CT of the thoracic and CT of the lumbar spine. The patient has severe rotoscoliosis. The patient was seen at the [facility]. The patient states she is functioning [...] like to proceed. CC: Manjula Marcial M.D.[facility] [id number] Miscellaneous Notes* Telephone Encounter - Cesilia Dotyins - 11/16/2021 1:46 PM EDT Received the following record(s) via fax. -MRI tspine wo(report) Date 11/03/21 Record(s) scanned into pt's chart. Cesilia Adler Images requested documented in this encounterTri[facility]20[facility] NotePROCEDURE: CT TSPINE WO CON, CT [...] authenticated by: JEFF FREGOSO Date: 2021-11-03 18:57[facility] [id number] NotePROCEDURE: CT TSPINE WO CON, CT LSPINE [...] Electronically authenticated by: JEFF FREGOSO Date: 2021-11-03 18:57[facility]08-19-2022 NoteHNO ID: [id number] Author: Ancelmo Sandoval PA-C Service: ? Author Type: Physician Hourly Team Members Type: Progress Notes Filed: 10/18/2021 8:52 AM [...] neuromuscular referral to (more content not included)... 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 Medicare annual wellness visit, subsequent noneactive Screening mammogram for breast cancer noneactive [facility] Work Phone: Evaluation noteNo assessment information available [facility] Work Phone: History general Narrative [...] Colonoscopy 2021 Hospitalization History SEE SURGICAL HX [facility] [employer] Other Reason for referral (narrative)* Diagnostic Procedure Only (Routine) - Closed Specialty Diagnoses / Procedures Referred By Mouna mclean Referred To Contact XR IMAGING Diagnoses Scoliosis of thoracolumbar spine, unspecified scoliosis type Procedures XR SCOLIOSIS PA STAND/LAT 2V RADEX ENTIR THRC LMBR CRV SAC SPI W/SKULL 2/3 Ancelmo Sandoval PA-C [id number] [place] [id number] Xr Imaging Referral ID Status Reason Start Date Expiration Date V isits Requested Visits Authorized [id number] Closed Auto-Generate d Referral 10/15/2021 11/14/2022 1 1 [facility] for visit Narrative* Diagnostic Procedure Only (Routine) - Closed Specialty Diagnoses / Procedures Referred By Mouna mclean Referred To Contact XR IMAGING Diagnoses Scoliosis of thoracolumbar spine, unspecified scoliosis type Procedures XR SCOLIOSIS PA STAND/LAT 2V RADEX ENTIR THRC LMBR CRV SAC SPI W/SKULL 2/3 Ancelmo Sandoval PA-C [id number] [place] [address] Xr Imaging Referral ID Status Reason Start Date Expiration Date V isits Requested Visits Authorized [id number] Closed Auto-Generate d Referral 10/15/2021 11/14/2022 1 1 [facility] Summary Purpose Family History Relationship Condition [...] section and content) DATE CREATED AUTHOR 09/02/2021 [facility] DATE CREATED AUTHOR AUTHOR'S ORGANIZ ATION 03/07/2022 [facility] DATE CREATED AUTHOR AUTHOR'S ORGANIZ ATION 07/13/2022 [facility] Comments (unrecognize d section and content) In the event this informatio n is protected by the Federal Confidentiality of Alcohol and Drug Abuse Patient Records regulations: The Federal rules restrict any use of the information to criminally investigate or prosecute any alcohol or drug abuse patient.[facility] HospitalIn the event this information is protected by the Federal Confidentiality of Alcohol and Drug Abuse Patient Records regulations: The Federal rules restrict any use of the information to criminally investigate or prosecute any alcohol or drug abuse patient.[facility] HospitalIn the event this information is protected by the Federal Confidentiality of Alcohol and Drug Abuse Patient Records regulations: The Federal rules restrict any use of the information to criminally investigate or prosecute any alcohol or drug abuse patient.[facility] Reason for Visit (unrecogniz ed section [...] BE BASED ON THE PRIMARY CLINICAL RECORDS. [facility]. provides no warranty or guarantee of the accuracy or completeness of information in this document.
[2024-02-19 07:23] VITALS: BP 174/81; PULSE 71; TEMP 36.3; O2SAT 99
[2024-02-19 08:11] VITALS: PULSE 75; O2SAT 98
[2024-02-19 08:12] VITALS: BP 169/77; BP 171/81; PULSE 69; O2SAT 99
[2024-02-19] MEDS: 0.9 % SODIUM CHLORIDE 10 ML SYRINGE - SALINE FLUSH INJ (08:12)
[2024-02-19] MEDS: DEXAMETHASONE SOD PHOS 10 MG/ML VIAL INJ (08:13)
[2024-02-19] MEDS: IOHEXOL 240 MG/ML - 10 ML VIAL INJ (08:13)
[2024-02-19] MEDS: BUPIVACAINE HCL 0.25% PF 25 MG/10 ML VIAL INJ (08:13)
[2024-02-19] MEDS: LIDOCAINE HCL 2% 400 MG/20 ML MDV 5 ML INJ (08:14)
--- NOTE | 2024-02-19 08:17 | P.ON_ITS ---
Date of procedure: 02/19/24 Pre-op diagnosis: Pain due to lumbar stenosis with neurogenic claudication Post-op diagnosis: same as pre-op Procedure: Procedure: Right L3-4, L4-5 transforaminal epidural steroid injection Medications: Bupivacaine 0.25% 2cc, lidocaine 2% 1cc, dexamethasone 10mg The patient was seen and examined in the preoperative holding area.? Informed consent was obtained and placed on the chart.? Patient was brought to the medical procedure unit and placed in the prone position where a timeout was completed verifying the correct patient, procedure site, position, and planned special equipment using sterile aseptic technique.? Under direct fluoroscopic visualization a 25-gauge Quincke tipped spinal needle was advanced to the designated neural foramen where contrast dye was injected to show adequate spread.? The needle was inserted at level right L3-4. There was no evidence of vascular or adverse uptake.? Epidural spread was appreciated.? The above- mentioned injectate was then placed in a 1.5 mL aliquot preceded by negative aspiration.? The needle was removed. The needle was inserted and the procedure repeated at level right L4-5.? The surgery site was covered.? Patient was taken to the postprocedural recovery area and monitored for an appropriate length of time before found suitable for discharge in the accompaniment of a responsible adult. Anesthesia: Local Surgeon: Clifton Matthews Pathology: none sent Condition: stable Disposition: no change
== END 2024-02-19 09:01 | disposition home or self-care (01) ==
LOC: SURGOUT 06:54
PROVIDERS: PCP Internal Medicine; Visit Provider Anesthesiology
DX: M48.062 Spinal stenosis, lumbar region with neurogenic claudication (principal)
CPT/HCPCS: 64483; 64484; J0665; J1100; Q9966

== ENCOUNTER 2024-03-05 10:45 | Outpatient (OUT) | payer MEDICARE, SELFPAY ==
--- NOTE | 2024-03-05 | CONS_ITS ---
CONSULTATION DATE: 03/05/2024 TO: Dr. Mota HISTORY: Patient presents today complaining of pain in the lower back bilaterally, rated at approximately 3/10 pain. She describes the pain as being dull aching in character. It is kind of sore. Increased with activities such as standing, walking and performing transitioning maneuvers. She feels most comfortable in the semi-recumbent position. CURRENT MEDICATION LIST: Includes nabumetone 750 mg b.i.d., baclofen 10 mg pills, half a pill at h.s., gabapentin 200 mg b.i.d. and Tylenol p.r.n. EXAM: Notable for patient having very mild hypoesthesia along the left L3 and L4 dermatome, very mild weakness of her left quadriceps. DTRs appear to be symmetrical. She has negative straight leg raise. She has mild myofascial spasm of the lumbar paravertebral muscles occurring bilaterally, and she has a leg length discrepancy, approximately 2? difference with the right side being shorter. IMPRESSION: Our impression is patient with chronic pain secondary to stable to right L3 and L4 radiculopathy from foraminal narrowing, status post successful transforaminal epidural steroid injection under fluoroscopic guidance. She reports the pain improved by at least 50% and continues to be the same. I have discussed physical therapy to address her leg length discrepancy and gait modification to help with her injury. She will contact our office if she wishes to proceed. Will otherwise see the patient back in the office in six months? time or sooner if needed. As part of providing excellent, safe, comprehensive care, the following was completed at our patient's visit: 1. A medication reconciliation and review to ensure accurate knowledge of current/active medications, including asking our patients to inform us about any avkj-iyw-yizvtix medications or herbal remedies/nutritional supplements/alternative remedies. 2. A review to specifically ensure our patients have had annual screening for: elevated body mass index (BMI, see intake chart for exact total), tobacco use, screening for depression, and screening for unhealthy alcohol use. When screening is concerning, patients are provided with education and the specific recommendation to discuss the concerning health issue and treatment options with their primary care provider. EMMANUEL
== END 2024-03-05 10:46 | disposition home or self-care (01) ==
LOC: PM 10:46
PROVIDERS: PCP Internal Medicine; Visit Provider Nurse Practitioner
DX: M54.16 Radiculopathy, lumbar region (principal); G89.4 Chronic pain syndrome
CPT/HCPCS: G0463

== ENCOUNTER 2024-05-03 06:51 | Outpatient (OUT) | payer MEDICARE, SELFPAY ==
--- OUTSIDE RECORDS SUMMARY | 2024-05-03 06:54 | XMS_ITS | CCD ---
Author Organization [facility] CliniSymi Care Team Providers Care Health Information Technician Name Role Phone Unavailable Primary Care Provider [...] [employer] Unavailable Kar Mota Unavailable Cassie VALE, Clifton Sena Attending Unavailable Allergies Allergy Classification Reported Allergen(s) Allergy Type Date of Onset Reaction(s) Facility (9 sources) Amoxicillin; Translations: [AMOXICILLIN] Drug Allergy 2 Anaphylaxis [facility] Comment on above: Onset Date: 02/08/20 16 (14 sources) NITROFURANTOIN, MACROCRYSTALS / Nitrofurantoin, Monohydrate; Translations: [NITROFURANTOIN MONOHYD/M-CRYST] Drug Allergy 2 Anaphylaxis [facility] (19 sources) Sulfonamides (Antibiotic); Translations: [SULFA (SULFONAMIDE ANTIBIOTICS)] Drug Allergy 2 Anaphylaxis [facility] (1 source) Amoxicillin Drug Allergy 1 [facility] (2 sources) Nitrofurantoin Drug Allergy 3 [facility] (2 sources) Sulfonamides (Antibiotic) Drug allergy (disorder) 3 [facility] (10 sources) Amoxicillin-Pot Clavulanate Drug allergy 6 Unknown [facility] Other (5 sources) Clavulanate Drug Allergy 4 Unknown Reaction [facility] Comment on above: Onset Date: 02/08/20 16 (5 sources) Nitrofurantoin Drug Allergy 4 Difficulty Breathing [facility] Medications Current Medications Medication Drug Class(es) Dates Sig (Normalized) Sig (Original) acetaminophen 500 mg oral tablet (5 sources) Start: 08-27-2021 Acetaminophen (Acetaminophen Extra Strength) 500 mg Tablet Active 500 MG PO As Directed as needed for pain August 26, 2021 11:00pm azithromycin 250 mg oral tablet (2 sources) Macrolide Antimicrobial Start: 03-27-2023 Azithromycin 250 MG as directed Orally daily for 5 days Feb, Active baclofen 10 mg oral tablet (18 sources) gamma-Aminobutyric Acid-ergic Agonist Start: 08-21-2018 take 1 tablet by mouth once daily at bedtime Baclofen 10 mg Tablet Active 10 MG PO Daily at bedtime August 26, 2021 11:00pm Comment on above: Take 10 mg by mouth daily at bedtime. calcium carbonate 1500 mg / cholecalciferol 200 unt oral tablet (5 sources) Vitamin D Start: 08-27-2021 take 1 tablet by mouth twice daily Calcium Carbonate-Vitamin D3 (Calcium + D) 600 mg-5 mcg (200 unit) Tablet Active 1 TAB PO Twice daily August 26, 2021 11:00pm docusate sodium 50 mg / sennosides, intermediate 8.6 mg oral tablet (3 sources) Start: 12-26-2022 take 8.6-50 mg by mouth once daily in the evening as needed Senokot S 8.6-50 MG 1 tablet as needed Orally q evening for 30 days Nov, Active gabapentin 100 mg oral capsule (20 sources) Anti-epileptic Agent Start: 08-28-2023 End: 11-13-2023 take 2 capsules by mouth twice daily Gabapentin 100 mg capsule Active 200 MG PO Twice daily 360 90 November 13, 2023 12:52pm Start: 08-28-2023 End: 11-13-2023 take 200 mg by mouth twice daily Gabapentin Active 200 MG PO Twice daily 360 November 13, 2023 1:52pm Start: 08-18-2023 End: 08-28-2023 take 2 capsules by mouth twice daily Gabapentin 100 mg capsule Discontinued 0 .ROUTE .COMPLEX 360 August 18, 2023 12:08pm August 28, 2023 11:22am TAKE 2 CAPSULES BY MOUTH TWICE A DAY Start: 07-19-2023 End: 08-18-2023 take 2 capsules by mouth twice daily Gabapentin 100 mg capsule Discontinued 200 MG PO Twice daily 120 July 19, 2023 10:03am August 18, 2023 12:08pm Start: 07-19-2023 End: 08-18-2023 take 200 mg by mouth twice daily Gabapentin Discontinu ed 200 MG PO Twice daily 120 July 19, 2023 11:03am August 18, 2023 1:08pm Start: 09-27-2021 take 2 capsules by m outh every twelve hours Gabapentin 100 MG 2 capsules Orally bid for 30 days Aug, Active Start: 08-27-2021 End: 07-19-2023 take 1 capsule by mouth twice daily Gabapentin 100 mg capsule Discontinued 100 MG PO Twice daily August 26, 2021 11:00pm July 19, 2023 9:39am Comment on above: Take 200 mg by mouth twice daily. omeprazole 40 mg delayed release oral capsule (8 sources) Proton Pump Inhibitor Start: 08-27-2021 take 1 capsule by mouth twice daily Omeprazole 40 mg capsule,delayed release(DR/EC) Active 40 MG PO Twice daily 168 84 August 26, 2021 11:00pm Comment on above: TAKE 1 CAPSULE BY [facility] TIMES DAILY FOR 12 WEEKS Vit C,L-Ni-Pkvaj-Lutein- Zeaxan (Preservision Areds-2) 250-90-40-1 mg Capsule (5 sources) Start: 08-27-2021 Vit C,W-Lc-Xyjgc-Lutein -Zeaxan (Preservision Areds-2) 250-90-40-1 mg Capsule Active 1 TAB PO Twice daily August 26, 2021 11:00pm Start: 08-27-2021 Vit C,E-Zn-Digital Ad Trafficker uo-Xpchip-Ehfwlg (Preservision Areds-2) 250-90-40-1 mg Capsule Active 1 TAB PO Twice daily August 27, 2021 12:00am 100 ml zoledronic acid 0.05 mg/ml injection (8 sources) Bisphosphonate Start: 08-27-2021 take 5 mg intravenously once Zoledronic Rlbu-Upppabdz-Dapqi (Reclast) 5 mg/100 mL Piggyback Active 5 MG IV Once August 26, 2021 11:00pm zoledronic acid (RECLAST) 5 mg/100 mL pgbk PREMIX piggyback Inject 5 mg intravenously every year. 0 Active Comment on above: Inject 5 mg intraven ously every year. Completed/Discontinued Medications Medication Drug Class(es) Dates Sig (Normalized) Sig (Original) nabumetone 750 mg oral tablet (20 sources) Nonsteroidal Anti-inflammatory Drug Start: 08-27-2021 End: 11-13-2023 take 1 tablet by mouth twice daily Nabumetone 750 mg tablet Discontinued 750 MG PO Twice daily 60 30 May 25, 2023 9:47pm November 13, 2023 12:52pm vit A/vit C/vit E/zinc/copper (PRESERVISION AREDS ORAL) [...] to other specified organisms Episodic Anxiety disorders (13 sources) Generalized anxiety disorder; Translations: [Generalized anxiety disorder] 08-01-2023 Chronic Chronic kidney disease (6 sources) Chronic kidney disease; Translations: [Chronic kidney disease, unspecified] 08-03-2023 Chronic Conditions associated with dizziness or vertigo (14 sources) Benign paroxysmal positional vertigo; Translations: [Benign paroxysmal vertigo, unspecified ear] Onset: 4 Episodic Deficiency and other anemia (12 sources) Anemia; Translations: [Anemia, unspecified] 08-03-2023 Episodic Deficiency and other anemia (3 sources) Pernicious anemia; Translations: [Vitamin B12 deficiency anemia due to intrinsic factor deficiency] 02-15-2024 Episodic Esophageal disorders (6 sources) Gastroesophageal reflux disease; Translations: [Gastro-esophageal reflux [...] sources) Osteoarthritis; Translations: [Polyosteoarthritis, unspecified] Chronic Osteoporosis (20 sources) Age-related osteoporosis without current pathological fracture; [...] of thoracolumbar region] Chronic Other acquired deformities (6 sources) Other secondary scoliosis, site unspecified; 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] 08-01-2023 Chronic Other aftercare (2 sources) Other chcf (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; Translations: [OTH PROCEDURE ANALYST CURRENT DRUG THERAPY] Onset: 2 Episodic Other aftercare (6 sources) Long-term current use of drug therapy; Translations: [Other chcf (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] Episodic Other bone disease and musculoskeletal deformities (7 sources) Bone density finding; Translations: [Other specified disorders of bone density and structure, unspecified site] Episodic Other circulatory disease (5 sources) Elevated blood-pressure reading without diagnosis of [...] Results Test Name Value Interpretation Reference Range Facility Basophils Auto (Bld) [#/Vol] on 02-09-2024 Basophils (Bld) [#/Vol] Automated basophil count 0.0-0.1 [facility] Basophils/100 WBC Auto (Bld) on 02-09-2024 Basophils/100 WBC (Bld) Automated basophil % 0.2-2.0 [facility] Eosinophils/100 WBC Auto (Bl d)on 02-09-2024 Eosinophils/100 WBC (Bld) Automated eosinophil % 0.9-7.0 [facility] Erythrocyte distribution wid th Auto (RBC) [Ratio]on 02-09-2024 Erythrocyte distribution width (RBC) [Ratio] Erythrocyte distribution width [Ratio] by Automated count 11.0-15.0 [facility] Estimated glomerular filtrat ion rate (GFR) non- Americanon 02-09-2024 GFR/1.73 sq M.predicted among non-blacks MDRD (S/P/Bld) [Vol rate/Area] Estimated glomerular filtration rate (GFR) non- Low >=60 mL/min/1.73m 2 [facility] Hematocrit Auto (Bld) [Volum e fraction]on 02-09-2024 Hematocrit (Bld) [Volume fraction] Hematocrit [Volume Fraction] of Blood by Automated count Low 36.0-48.0 [facility] Hemoglobin [Mass/volume] in Bloodon 02-09-2024 Hemoglobin (Bld) [Mass/Vol] Hemoglobin [Mass/volume] in Blood Low 12.0-16.0 [facility] Iron binding capacity [Mass/ volume] in Serum or Plasmaon 02-09-2024 Iron binding capacity [Mass/Vol] Iron binding capacity [Mass/volume] in Serum or Plasma 250.0-450.0 [facility] Iron saturation [Mass Fracti on] in Serum or Plasmaon 02-09-2024 Iron saturation [Mass fraction] Iron saturation [Mass Fraction] in Serum or Plasma [facility] Laboratory - Chemistry and C hemistry - challengeon 02-09-2024 Calcium [Mass/Vol] 9.8 mg/dL 8.5-10.1 [facility] Chloride [Moles/Vol] 107 mmol/L 98-107 [facility] CO2 [Moles/Vol] 31.1 mmol/L 21.0-32.0 [facility] Cobalamin (Vitamin B12) [Mass/Vol] 250 pg/mL 232-1245 [facility] Comment on above: Performed at: - [address] [id number] Director: Primo Richard PhD, Phone: [phone] Creatinine [Mass/Vol] 1.25 mg/dL High 0.55-1.02 [facility] Ferritin [Mass/Vol] 28.0 ng/mL 8.0-252.[address] [facility] GFR/1.73 sq M.predicted MDRD (S/P/Bld) [Vol rate/Area] 51 mL/min/{1.73_m2} Low >=60 mL/min/1.73m 2 [facility] Glucose [Mass/Vol] 87 mg/dL 74-106 [facility] Iron [Mass/Vol] 122.0 ug/dL 50.0-170.0 [facility] Potassium [Moles/Vol] 4.1 mmol/L 3.5-5.1 [facility] Sodium [Moles/Vol] 147 mmol/L High 136-145 [facility] Urea nitrogen [Mass/Vol] 20.0 mg/dL High 7.0-18.0 [facility] Urea nitrogen/Creatinine [Mass ratio] 16.0 mg/mg [facility] - Hematology and Cell countson 02-09-2024 Immature granulocytes/100 WBC (Bld) 0.2 % 0.0-0.5 [facility] Leukocytes [#/volume] correc ric for nucleated erythrocytes in Blood by Automated counon 02-09-2024 WBC corrected for nucl RBC Auto (Bld) [#/Vol] Leukocytes [#/volume] corrected for nucleated erythrocytes in Blood by Automated coun 4.0-11.0 [facility] Lymphocytes Auto (Bld) [#/Vo l]on 02-09-2024 Lymphocytes (Bld) [#/Vol] Lymphocytes [#/volume] in Blood by Automated count 1.2-3.8 [facility] Lymphocytes/100 WBC Auto (Bl d)on 02-09-2024 Lymphocytes/100 WBC (Bld) Lymphocytes/100 leukocytes in Blood by Automated count 20.5-60.0 [facility] MCH Auto (RBC) [Entitic mass ]on 02-09-2024 MCH (RBC) [Entitic mass] MCH [Entitic mass] by Automated count 26.7-34.0 [facility] MCHC Auto (RBC) [Mass/Vol]on 02-09-2024 MCHC (RBC) [Mass/Vol] MCHC [Mass/volume] by Automated count 29.9-35.2 [facility] MCV Auto (RBC) [Entitic vol] on 02-09-2024 MCV (RBC) [Entitic vol] MCV [Entitic volume] by Automated count 81.0-99.0 [facility] Monocytes Auto (Bld) [#/Vol] on 02-09-2024 Monocytes (Bld) [#/Vol] Automated blood monocyte count 0.3-0.8 [facility] Monocytes/100 WBC Auto (Bld) on 02-09-2024 Monocytes/100 WBC (Bld) Automated monocyte % 1.7-12.0 [facility] Neutrophils Auto (Bld) [#/Vo l]on 02-09-2024 Neutrophils (Bld) [#/Vol] Neutrophils [#/volume] in Blood by Automated count 1.4-6.5 [facility] Neutrophils/100 WBC Auto (Bl d)on 02-09-2024 Neutrophils/100 WBC (Bld) Automated neutrophil % 43.0-75.0 [facility] No Panel Informationon 02-08 Eosinophils # (Auto) 0.1 10 3/uL 0.0-0.7 [facility] Folate 21.20 ng/mL 8.60-58.90 [facility] Immature Granulocyte # (Auto) 0.01 10 3/uL 0.00-0.03 [facility] Platelet mean volume Auto (B ld) [Entitic vol]on 02-09-2024 Platelet mean volume (Bld) [Entitic vol] Platelet mean volume [Entitic volume] in Blood by Automated count Low 9.5-13.5 [facility] Platelets Auto (Bld) [#/Vol] on 02-09-2024 Platelets (Bld) [#/Vol] Platelets [#/volume] in Blood by Automated count 150-450 [facility] RBC Auto (Bld) [#/Vol]on RBC (Bld) [#/Vol] Erythrocytes [#/volume] in Blood by Automated count Low 4.20-5.40 [facility] Serum or plasma anion gap de terminationon 02-09-2024 Anion gap [Moles/Vol] Serum or plasma anion gap determination [facility] Estimated glomerular filtrat ion rate (GFR) non- Americanon 12-15-2023 GFR/1.73 sq M.predicted among non-blacks MDRD (S/P/Bld) [Vol rate/Area] Estimated glomerular filtration rate (GFR) non- Low >=60 mL/min/1.73m 2 [facility] - Chemistry and C hemistry - challengeon 12-15-2023 Calcium [Mass/Vol] 9.7 mg/dL 8.5-10.1 [facility] Chloride [Moles/Vol] 106 mmol/L 98-107 [facility] CO2 [Moles/Vol] 29.9 mmol/L 21.0-32.0 [facility] Creatinine [Mass/Vol] 1.26 mg/dL High 0.55-1.02 [facility] GFR/1.73 sq M.predicted MDRD (S/P/Bld) [Vol rate/Area] 50 mL/min/{1.73_m2} Low >=60 mL/min/1.73m 2 [facility] Glucose [Mass/Vol] 91 mg/dL 74-106 [facility] Potassium [Moles/Vol] 3.7 mmol/L 3.5-5.1 [facility] Sodium [Moles/Vol] 143 mmol/L 136-145 [facility] Urea nitrogen [Mass/Vol] 21.0 mg/dL High 7.0-18.0 [facility] Urea nitrogen/Creatinine [Mass ratio] 16.7 mg/mg [facility] No Panel Informationon 12-14 25-Hydroxy Vitamin D Total 68.1 ng/mL [facility] Comment on above: <20 ng/mL Vit D defi cient20-<30 ng/mL Vit D ftwmwtfgpkdu73-708 ng/mL Vit D sufficient>100 ng/mL Potential Toxicity Serum or plasma anion gap de terminationon 12-15-2023 Anion gap [Moles/Vol] Serum or plasma anion gap determination [facility] CBC AUTO DIFFon 03-08-2022 BASO # 0.0 103/ul Normal 0.0-0.1 [facility] Comment on above: Performed By: #### C BC ####[facility] [address] [place], [place] [address]WeAryan Madison Basophils/100 WBC (Bld) 0.7 % Normal 0.2-2.0 [facility] Comment on above: Performed By: #### C BC ####[facility] [address] [place], [place] [address]DsAryan Madison EO # 0.1 103/ul Normal 0.0-0.7 [facility] Comment on above: Performed By: #### C BC ####[facility] [address] [place] [address]Dr. Tanner Madison Eosinophils/100 WBC (Bld) 1.5 % Normal 0.9-7.0 [facility] Comment on above: Performed By: #### C BC ####[facility] [address] [place], [place] [address]Dr. Tanner Madison Erythrocyte distribution width (RBC) [Ratio] 13.2 % Normal 11.0-15.0 [facility] Comment on above: Performed By: #### C BC ####[facility] [address] [place], [place] [address]Dr. Tanner Madison Hematocrit (Bld) [Volume fraction] 34.1 % Critically low 36.0-48.0 [facility] Comment on above: Performed By: #### C BC ####[facility] [address] [place], [place] [address]Dr. Tanner Madison Hemoglobin (Bld) [Mass/Vol] 11.7 g/dL Critically low 12.0-16.0 [facility] Comment on above: Performed By: #### C BC ####[facility] [address] [place], [place] [address]Dr. Tanner Madison IG # 0.02 10e3/ul Normal 0.00-0.03 [facility] Comment on above: Performed By: #### C BC ####[facility] [address] [place], [place] [address]Dr. Tanner Madison IG % 0.4 % Normal 0.0-0.5 [facility] Comment on above: Performed By: #### C BC ####[facility] [address] [place], [place] [address]Dr. Tanner Madison LYMPH # 1.2 103/ul Normal 1.2-3.8 [facility] Comment on above: Performed By: #### C BC ####[facility] [address] [place], [place] [address]Dr. Tanner Madison Lymphocytes/100 WBC (Bld) 25.6 % Normal 20.5-60.0 [facility] Comment on above: Performed By: #### C BC ####[facility] [address] [place] [address]Dr. Tanner Madison MANUAL DIFF REQ NO Normal [facility] Comment on above: Performed By: #### C BC ####[facility] [address] [place] [id number]. Tanner Madison MCH (RBC) [Entitic mass] 30.9 pg Normal 26.7-34.0 [facility] Comment on above: Performed By: #### C BC ####[facility] [address] [place] [address]Dr. Tanner Madison MCHC (RBC) [Mass/Vol] 34.3 g/dL Normal 29.9-35.2 [facility] Comment on above: Performed By: #### C BC ####[facility] [address] [place], [place] [address]Dr. Tanner Madison MCV (RBC) [Entitic vol] 90.0 fL Normal 81.0-99.0 [facility] Comment on above: Performed By: #### C BC ####[facility] [address] [place], [place] [address]Dr. Tanner Maidson MONO # 0.4 103/ul Normal 0.3-0.8 [facility] Comment on above: Performed By: #### C BC ####[facility] [address] [place], [place] [address]Dr. Tanner Madison Monocytes/100 WBC (Bld) 7.6 % Normal 1.7-12.0 [facility] Comment on above: Performed By: #### C BC ####[facility] [address] [place], [place] [address]DrAryan Madison NEUT # 3.0 103/ul Normal 1.4-6.5 [facility] Comment on above: Performed By: #### C BC ####[facility] [address] [place], [place] [address]DrAryan Madison Neutrophils/100 WBC (Bld) 64.2 % Normal 43.0-75.0 [facility] Comment on above: Performed By: #### C BC ####[facility] [address] [place], [place] [address]Va. Tanner Madison Platelet mean volume (Bld) [Entitic vol] 8.5 fL Critically low 9.5-13.5 [facility] Comment on above: Performed By: #### C BC ####[facility] [address] [place] [id number]. Tanner Madison PLT 269 103/ul Normal 150-450 [facility] Comment on above: Performed By: #### C BC ####[facility] [address] [place], [place] [address]Jj. Tanner Madison RBC 3.79 106/ul Critically low 4.20-5.40 [facility] Comment on above: Performed By: #### C BC ####[facility] [address] [place], [place] [address]Rv. Tanner Madison WBC 4.6 103/ul Normal 4.0-11.0 [facility] Comment on above: Performed By: #### C BC ####[facility] [address] [place], [place] [address]Zr. Tanner Madison MG MAMM SCREEN 3D VIJAYA CADon 03-08-2022 MG MAMM SCREEN 3D VIJAYA CAD Patient: COURTNEY WHITE Exam Date: 03/08/2022 : 1950 Gender:F Ordering : DR KAR MOTA D.O. Admission #: [id number] Family : Order #: [id number] CLICK HERE TO VIEW EXAM RADIOLOGY REPORT [...] breast cancer at age 48. LOCATION: [facility] BREAST COMPOSITION: Extremely dense, which [...] Fregoso MD on 03/08/2022 at 12:18 Normal [facility] PROF CHEM 8 (BAS METB)on Anion gap [Moles/Vol] 11.0 mmol/L Normal [facility] Comment on above: Performed By: #### T TYRA, BMP #### [facility] [address] [place] [address] Dr. Tanner Madison Calcium [Mass/Vol] 9.5 mg/dL Normal 8.5-10.1 [facility] Comment on above: Performed By: #### T TYRA, BMP #### [facility] [address] [place] [address] Dr. Tanner Madison Chloride [Moles/Vol] 103 mmol/L Normal 98-107 [facility] Comment on above: Performed By: #### T TYRA, BMP #### [facility] [address] [place] [address] Dr. Tanner Madison CO2 [Moles/Vol] 30.1 mmol/L Normal 21.0-32.0 [facility] Comment on above: Performed By: #### T TYRA, BMP #### [facility] [address] [place] [address] Dr. Tanner Madison Creatinine [Mass/Vol] 0.98 mg/dL Normal 0.55-1.02 [facility] Comment on above: Performed By: #### T TYRA, BMP #### [facility] [address] [place] [address] Dr. Tanner Madison EGFR-AF LITHUANIAN >60 Normal >=60 [facility] Comment on above: Performed By: #### T TYRA, BMP #### [facility] [address] [place] [address] Dr. Tanner Madison EGFR-NON AF LITHUANIAN 56 mL/min/1.73m2 Critically low >=60 [facility] Comment on above: Performed By: #### T SH, BMP #### [facility] [address] [place] [address] [address] Tanner Madison Glucose [Mass/Vol] 91 mg/dL Normal 74-106 [facility] Comment on above: Performed By: #### T SH, BMP #### [facility] [address] [place] [address] [address] Tanner Madison Potassium [Moles/Vol] 4.1 mmol/L Normal 3.5-5.1 [facility] Comment on above: Performed By: #### T SH, BMP #### [facility] [address] [place] [address] [address] Tanner Madison Sodium [Moles/Vol] 140 mmol/L Normal 136-145 [facility] Comment on above: Performed By: #### T SH, BMP #### [facility] [address] [place] [address] Dr. Tanner Madison Urea nitrogen [Mass/Vol] 14.0 mg/dL Normal 7.0-18.0 [facility] Comment on above: Performed By: #### T SH, BMP #### [facility] [address] [place] [address] Dr. Tanner Madison Urea nitrogen/Creatinine [Mass ratio] 14.3 mg/mg Normal [facility] Comment on above: Performed By: #### T SH, BMP #### [facility] [address] [place] [address] [address] Tanner Madison TSHon 03-08-2022 TSH 2.659 uIU/mL Normal 0.358-3.740 [facility] Comment on above: Performed By: #### T SH, BMP #### [facility] [address] [place] [address] Dr. Tanner Madison VITAMIN D 25 OHon 03-08-2022 VIT D 25-OH 63.4 ng/mL Normal [facility] Comment on above: Performed By: #### V ITAD ####[facility] [address] [place], [place] [address]Os. Tanner Madison VIT D RANGES SEE BELOW Normal [facility] Comment on above: Result Comment: <20 ng/mL Vit D deficient 20 - <30 ng/mL Vit D insufficient 30 - 100 ng/mL Vit D sufficient >100 ng/mL Potential Toxicity Performed By: #### V ITAD ####[facility] [address] [place], [place] [address]It. Tanner Madison XR DEXA BONE DENSITYon 03-08 XR DEXA BONE DENSITY EXAMINATION: XR DEX A BONE DENSITY, 03/08/2022 9:42 AM EST HISTORY: [...] MARTA ELIAS Date: 2022-03-08 10:52 Normal [facility] COURTNEY WHITE ([id number]) 1950 F Date Time Provider Department 11/16/21 ANCELMO SANDOVAL During your visit today, we recorded the following information about you: Cesilia Adler 11/16/2021 1:47 PM Signed Received the following record(s) via fax. -JEANNE jamil (report) Date 11/03/21 Record(s) scanned into pt's chart. Cesilia Andradebbins Images requested Allergies As of Date: 11/16/2021 [...] Status:Closed by RAYSA RICO on 11/23/21 Normal [facility] MRI LSPINE WO CONon 11-05-19 MRI LSPINE [...] MARTA ELIAS Date: 2021-11-04 06:33 Normal [facility] CONon 11-04-19 22 MRI JOE DIMAGGIO [facility] WO CON EXAMINATION: MRI JOE DIMAGGIO [facility] WO CON HISTORY: Scoliosis deformity of [...] JEFF FREGOSO Date: 2021-11-03 19:07 Normal [facility] VIT D 25-OH LABCORPon 2021 Vitamin D, 25-Hydroxy 69.8 ng/mL Normal 30.0-100.0 [facility] Comment on above: Result Comment: Negar min D deficiency has been defined by the Man of Medicine and an Endocrine Society practice guideline as a level of serum 25-OH vitamin D less than 20 ng/mL (1,2). The Endocrine Society went on to further define vitamin D insufficiency as a level between 21 and 29 ng/mL (2). 1. IOM (Man of Medicine). 2010. Dietary reference intakes for calcium and D. [place]: The National Academies Press. 2. Mikal MF, Jayy LEMOS, Zi MACHADO, et al. Evaluation, treatment, and prevention of vitamin D deficiency: an Endocrine Society clinical practice guideline. JCEM. 2010; 96(7):1911-30. Performed By: #### V ITADLC #### [facility] [address] [place] [address] Dr. Tanner Madison CBC AUTO DIFFon 10-28-2021 BASO # 0.0 103/ul Normal 0.0-0.1 [facility] Comment on above: Performed By: #### C BC #### [facility] [address] [place] [address] Dr. Tanner Madison Basophils/100 WBC (Bld) 0.6 % Normal 0.2-2.0 [facility] Comment on above: Performed By: #### C BC #### [facility] [address] [place] [address] Dr. Tanner Madison EO # 0.1 103/ul Normal 0.0-0.7 [facility] Comment on above: Performed By: #### C BC #### [facility] [address] [place] [address] Dr. Tanner Madison Eosinophils/100 WBC (Bld) 1.1 % Normal 0.9-7.0 [facility] Comment on above: Performed By: #### C BC #### [facility] [address] [place] [address] Dr. Tanner Madison Erythrocyte distribution width (RBC) [Ratio] 13.5 % Normal 11.0-15.0 [facility] Comment on above: Performed By: #### C BC #### [facility] [address] [place] [address] Dr. Tanner Madison Hematocrit (Bld) [Volume fraction] 31.7 % Critically low 36.0-48.0 [facility] Comment on above: Performed By: #### C BC #### [facility] [address] [place] [address] Dr. Tanner Madison Hemoglobin (Bld) [Mass/Vol] 10.8 g/dL Critically low 12.0-16.0 [facility] Comment on above: Performed By: #### C BC #### [facility] [address] [place] [address] Dr. Tanner Madison IG # 0.01 10e3/ul Normal 0.00-0.03 [facility] Comment on above: Performed By: #### C BC #### [facility] [address] [place] [address] Dr. Tanner Madison IG % 0.2 % Normal 0.0-0.5 [facility] Comment on above: Performed By: #### C BC #### [facility] [address] [place] [address] Dr. Tanner Madison LYMPH # 1.3 103/ul Normal 1.2-3.8 [facility] Comment on above: Performed By: #### C BC #### [facility] [address] [place] [address] Dr. Tanner Madison Lymphocytes/100 WBC (Bld) 24.0 % Normal 20.5-60.0 [facility] Comment on above: Performed By: #### C BC #### [facility] [address] [place] [address] Dr. Tanner Madison MANUAL DIFF REQ NO Normal [facility] Comment on above: Performed By: #### C BC #### [facility] [address] [place] [address] Dr. Tanner Madison MCH (RBC) [Entitic mass] 31.0 pg Normal 26.7-34.0 [facility] Comment on above: Performed By: #### C BC #### [facility] [address] [place] [address] Dr. Tanner Madison MCHC (RBC) [Mass/Vol] 34.1 g/dL Normal 29.9-35.2 [facility] Comment on above: Performed By: #### C BC #### [facility] [address] [place] [address] Dr. Tanner Madison MCV (RBC) [Entitic vol] 91.1 fL Normal 81.0-99.0 [facility] Comment on above: Performed By: #### C BC #### [facility] [address] [place] [address] Dr. Tanner Madison MONO # 0.5 103/ul Normal 0.3-0.8 [facility] Comment on above: Performed By: #### C BC #### [facility] [address] [place] [address] Dr. Tanner Madison Monocytes/100 WBC (Bld) 8.3 % Normal 1.7-12.0 [facility] Comment on above: Performed By: #### C BC #### [facility] [address] [place] [address] Dr. Tanner Madison NEUT # 3.6 103/ul Normal 1.4-6.5 [facility] Comment on above: Performed By: #### C BC #### [facility] [address] [place] [address] Dr. Tanner Madison Neutrophils/100 WBC (Bld) 65.8 % Normal 43.0-75.0 [facility] Comment on above: Performed By: #### C BC #### [facility] [address] [place] [address] Dr. Tanner Madison Platelet mean volume (Bld) [Entitic vol] 8.6 fL Critically low 9.5-13.5 [facility] Comment on above: Performed By: #### C BC #### [facility] [address] [place] [address] Dr. Tanner Madison PLT 234 103/ul Normal 150-450 [facility] Comment on above: Performed By: #### C BC #### [facility] [address] [place] [address] Dr. Tanner Madison RBC 3.48 106/ul Critically low 4.20-5.40 [facility] Comment on above: Performed By: #### C BC #### [facility] [address] [place] [address] Dr. Tanner Madison WBC 5.4 103/ul Normal 4.0-11.0 [facility] Comment on above: Performed By: #### C BC #### [facility] [address] [place] [address] Dr. Tanner Madison PROF CHEM 8 (BAS METB)on Anion gap [Moles/Vol] 12.7 mmol/L Normal [facility] Comment on above: Performed By: #### B MP ####[facility] [address] [place] [address]Dr. Virginiasunita Los Calcium [Mass/Vol] 9.2 mg/dL Normal 8.5-10.1 [facility] Comment on above: Performed By: #### B MP ####[facility] [address] [place] [address]Dr. Tanner Madison Chloride [Moles/Vol] 102 mmol/L Normal 98-107 [facility] Comment on above: Performed By: #### B MP ####[facility] [address] [place], [place] [address]Dr. Tanner Madison CO2 [Moles/Vol] 30.4 mmol/L Normal 21.0-32.0 [facility] Comment on above: Performed By: #### B MP ####[facility] [address] [place], [place] [address]Dr. Tanner Madison Creatinine [Mass/Vol] 1.07 mg/dL Critically high 0.55-1.02 [facility] Comment on above: Performed By: #### B MP ####[facility] [address] [place], [place] [address]Dr. Virginiasunita Los EGFR-AF LITHUANIAN >60 Normal >=60 [facility] Comment on above: Performed By: #### B MP ####[facility] [address] [place] [address]Dr. Tanner Madison EGFR-NON AF LITHUANIAN 50 mL/min/1.73m2 Critically low >=60 [facility] Comment on above: Performed By: #### B MP ####[facility] [address] [place], [place] [address]Dr. Tanner Madison Glucose [Mass/Vol] 99 mg/dL Normal 74-106 [facility] Comment on above: Performed By: #### B MP ####[facility] [address] [place], [place] [address]Dr. Tanner Madison Potassium [Moles/Vol] 4.1 mmol/L Normal 3.5-5.1 [facility] Comment on above: Performed By: #### B MP ####[facility] [address] [place] [address]Dr. Tanner Madison Sodium [Moles/Vol] 141 mmol/L Normal 136-145 [facility] Comment on above: Performed By: #### B MP ####[facility] [address] [place] [id number]. Tanner Madison Urea nitrogen [Mass/Vol] 16.0 mg/dL Normal 7.0-18.0 [facility] Comment on above: Performed By: #### B MP ####[facility] [address] [place] [address]Dr. Tanner Madison Urea nitrogen/Creatinine [Mass ratio] 15.0 mg/mg Normal [facility] Comment on above: Performed By: #### B MP ####[facility] [address] [place] [address]Dr. Tanner Madison LASHELLOVon 10-15-2021 CNOV Office Visit (SPNMMN) COURTNEY WHITE ([id number]) 1950 F Date Time Provider Department 10/15/21 2:00 PM ANCELMO SANDOVAL [facility] During your visit today, we recorded the [...] short period (more content not included)... Normal [facility] XR SCOLIOSIS 2V PA STAND/LAT on 10-15-2021 [...] abnormality. IMPRESSION: Thoracolumbar scoliosis and degenerative changes. 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[employer]: BLANE Transcribe Date/Time: Oct 15 2021 2:52P Dictated by : CHETNA HERNANDEZ MD This examination was interpreted and the report reviewed and electronically signed by: CHETNA HERNANDEZ MD on Oct 15 2021 2:54PM EST [id number] Normal [facility] XR SCOLIOSIS PA STAND/LAT 2V on 10-15-2021 [facility] Rufus 08-27-2021 L Specimen: [id number] Received: 08/27/21 Status: VINOD Radha Num: [id number] Spec Type: Surgical Subm Dr: Will Ma MD Tissues: A Gastric Biopsy (GASTRIC BXS) Procedures: HE Stain/2, Gross/Micro L4 Patient Age/Sex Location Account Attending Physician Courtney White 70/F [id number] Will Ma MD SPEC NUM: [id number] RECD: 08/27/21 STATUS: VINOD GARCIA NUM: [id number] JHONNY: 08/27/21 DR: Will Ma MD ENTERED: 08/27/[address] [facility] [address]: SON TYPE: Surgical DEPT: S [...] microscopic findings support the above pathologic diagnosis. [id number] Specimen: [id number] Received: 08/27/21 Status: VINOD Garcia Num: [id number] Spec Type: Surgical Subm Dr: Will Ma MD Tissues: A Gastric Biopsy (GASTRIC BXS) Procedures: HE Stain/2, Gross/Micro L4 Patient: ChristopherCourtney whelan Stephanie [id number] (Continued) Signed (signature on file) Nisreen Marquez MD 08/31/21 [id number] Normal [facility] COVID[facility] SARS-CoV-2 (COVID-19) RNA JEFFRY+probe Ql (Unsp spec) Negative Normal Negative [facility] Comment on above: Order Comment: Healt hcare Worker?: N Result Comment: Testing for SARS-CoV-2 by RT-PCR This test was developed and its performance characteristics determined by [employer] ([employer]) and validated at the [facility]. [...] is terminated or revoked sooner. PERFORMED BY: [facility] [address] [place] [address] PATHOLOGIST ELECTROMEDICAL EQUIPMENT REPAIRER NISREEN MARQUEZ M.D. Performed By: #### C OVID 19 [facility] #### [address] Vital Signs Date Time Vital Sign Value Performing Clinician Facility 08-03-2023 10:08-0400 Body height 160.02 cm [facility] 08-03-2023 10:08-0400 Body mass index (BMI) [Ratio] 19.7 kg/m2 [facility] 08-03-2023 10:08-0400 Body weight 50.57 kg [facility] 08-03-2023 10:08-0400 Diastolic blood pressure 81 mm[Hg] [facility] 08-03-2023 10:08-0400 Heart rate 70 /min [facility] 08-03-2023 10:08-0400 Respiratory rate 12 /min [facility] 08-03-2023 10:08-0400 Systolic blood pressure 150 mm[Hg] [facility] 09-26-2022 10:30-0400 Body height 160.02 cm [employer] Other [employer] Other 09-26-2022 10:30-0400 Body mass index (BMI) [Ratio] 19.31 kg/m2 Kar Ball Other [facility] [facility] [employer] Other 09-26-2022 10:30-0400 Body weight 49.44 kg Kar Ball Other [employer] Other 09-26-2022 10:30-0400 Diastolic blood pressure 75 mm[Hg] Kar Mota Other [employer] Other 09-26-2022 10:30-0400 Respiratory rate 12 /min Kar Mota Other [employer] Other 09-26-2022 10:30-0400 Systolic blood pressure 166 mm[Hg] Kar Mota Other [employer] Other 02-01-2022 10:22-0500 Body height 160 cm Wellington Hong MD Work Phone: [facility] 02-01-2022 10:22-0500 Body weight 49.9 kg Wellington Hong MD Work Phone: [facility] 02-01-2022 10:22-0500 Diastolic blood pressure 76 mm[Hg] Wellington Hong MD Work Phone: [facility] 02-01-2022 10:22-0500 Heart rate 71 /min Wellington Hong MD Work Phone: [facility] 02-01-2022 10:22-0500 Respiratory rate 14 /min Wellington Hong MD Work Phone: [facility] 02-01-2022 10:22-0500 SaO2% (BldA) [Mass fraction] 98 % Wellington Hong MD Work Phone: [facility] 02-01-2022 10:22-0500 Systolic blood pressure 168 mm[Hg] Wellington Hong MD Work Phone: [facility] Encounters Encounter Date Encounter Type Care Provider Facility Start: 04-08-2024 End: 04-08-2024 ambulatory [facility] Work Phone: Start: 04-08-2024 End: 04-08-2024 Patient encounter procedure [facility] Physician [facility] Work Phone: Start: 03-07-2024 End: 03-07-2024 ambulatory [facility] Work Phone: Start: 03-07-2024 End: 03-07-2024 Patient encounter procedure [facility] Physician [facility] Work Phone: Start: 02-29-2024 End: 02-29-2024 ambulatory [facility] Work Phone: Start: 02-29-2024 End: 02-29-2024 Patient encounter procedure [facility] Physician [facility] Work Phone: Start: 02-22-2024 End: 02-22-2024 Patient encounter procedure [facility] Physician [facility] Work Phone: Start: 02-19-2024 End: 02-19-2024 ambulatory Clifton Matthews MD Facility:[facility] Start: 02-15-2024 End: 02-15-2024 Patient encounter procedure [facility] Physician [facility] Work Phone: Start: 02-09-2024 Non-patient / Non-visit [facility] Physician [facility] Work Phone: Start: 12-15-2023 Non-patient / Non-visit [facility] Physician [facility] Work Phone: Start: 11-16-2023 End: 11-16-2023 ambulatory [facility] Work Phone: Start: 11-16-2023 End: 11-16-2023 Patient encounter procedure [facility] Physician [facility] Work Phone: Start: 08-03-2023 End: 08-03-2023 ambulatory [facility] Work Phone: Start: 08-03-2023 End: 08-03-2023 Patient encounter procedure [facility] Physician [facility] Work Phone: Start: 07-19-2023 Non-patient / Non-visit [facility]ician [facility] Work Phone: Start: 03-27-2023 End: 03-27-2023 ambulatory Kar Mota Other [employer] Other Start: 03-27-2023 Office outpatient vi sit 15 minutes Kar Mota [facility] Start: 03-27-2023 Telephone encounter Kar NAILS [facility] Start: 01-23-2023 End: 01-23-2023 ambulatory Kar Mota Other [employer] Other Start: 01-23-2023 Telephone encounter Kar NAILS [facility] Start: 11-29-2022 End: 11-29-2022 ambulatory Kar Mota Other [employer] Other Start: 11-29-2022 Telephone encounter Kar NAILS [facility] Start: 11-28-2022 End: 11-28-2022 ambulatory Kar Mota Other [employer] Other Start: 11-28-2022 Nursing evaluation o f patient and report Kar Mota [facility] Start: 11-28-2022 Telephone encounter Kar NAILS [facility] Start: 10-04-2022 End: 10-04-2022 ambulatory Kar Mota Other [employer] Other Start: 10-04-2022 Telephone encounter Kar NAILS [facility] Start: 09-26-2022 End: 09-26-2022 ambulatory Kar Mota Other [employer] Other Start: 09-26-2022 Office outpatient vi sit 15 minutes Kar Mota [facility] Start: 07-14-[address] MANJULA MARCIAL Facil ity:[facility] Start: 05-02-2022 End: 05-03-[address] MANJULA MARCIAL Facility:[facility] Start: 03-08-2022 End: 03-09-[address] MANJULA MARCIAL Facility:[facility] Start: 03-02-2022 End: 03-03-[address] MANJULA MARCIAL Facility:[facility] Start: 02-15-2022 Adult health examination Chris Mota Other [employer] Other Start: 02-01-2022 End: 02-01-2022 ambulatory ANCELMO SANDOVAL Facility:[facility] Start: 02-01-2022 End: 02-01-2022 Patient encounter procedure Wellington Hong MD Work Phone: [facility] Comment on above: Encounter for screen ing [...] Start: 10-15-2021 End: 10-15-2021 ambulatory ANCELMO SANDOVAL Facility:[facility] Start: 10-15-2021 End: 10-15-2021 Subsequent hospital visit [...] DIRECTIVE DISCUSSION ADVANCE DIRECTIVE DISCUSSION [facility] Start: 02-27-2022 DEPRESSION ASSESSMENT DEPRESSION ASS ESSMENT [facility] Start: 10-28-2021 Influenza vaccination INFLUENZA (#1) [facility] Start: 07-25-2021 COVID-19 VACCINE (5 - Booster for Pfizer series) COVID-19 VACCINE (5 - Booster for Pfizer series) [facility] Start: 02-27-2021 ADVANCE DIRECTIVE DISCUSSION ADVANCE DIRECTIVE DISCUSSION [facility] Start: 02-27-2021 DEPRESSION ASSESSMENT DEPRESSION ASS ESSMENT [facility] Start: 2013 BONE DENSITY BONE DENSITY [facility] Start: 2013 PNEUMOCOCCAL: 65+ (1 - PCV) PNEUMOCOCCAL: 65+ (1 - PCV) [facility] Start: 1998 SHINGRIX VACCINE (1 of 2) SHINGRIX VACCINE (1 of 2) [facility] Start: 1993 COLOGUARD (FIT-DNA) COLOGUARD (FIT-D NA) [facility] Start: 1993 Colonoscopy COLONOSCOPY [facility] Start: 1993 COLORECTAL CANCER SCREENING COLORECTAL CANCER SCREENING [facility] Start: [address] COLONOGRAPHY [facility] Start: 1993 DIABETES SCREEN DIABETES SCREEN [facility] Start: 1993 FECAL OCCULT BLOOD FECAL OCCULT BLOO D [facility] Start: 1993 LIPID SCREEN LIPID SCREEN [facility] Start: 1993 SIGMOIDOSCOPY SIGMOIDOSCOPY [facility] Start: 1988 Mammography MAMMOGRAM [facility] Start: 11-13-1967 Urine microalbumin profile DTAP,TDAP,TD (1 - Tdap) [facility] Start: 1966 HEPATITIS C SCREENING HEPATITIS C SC CIERA [facility] Start: 1960 Adult depression screening assessment DEPRESSION SCREENING [facility] Comprehensive metabo lic 2000 panel - Serum or Plasma [facility] End: 03-03-2023 DXA-AXIAL SKELETON DXA-AXIAL SKELETON Radiology Routine Encounter for screening for osteoporosis 1 Occurrences starting 02/01/2022 until 03/03/2023 [facility] Work Phone: Comment on above: 1 Occurrences starti ng 02/01/2022 until 03/03/2023 [facility] Immunizations Immunization Date Immunization Notes Care Provider Cecy brown 11-16-2023 influenza, high dose seasonal, preservative-free [facility] 11-16-2023 influenza, live, intranasal, quadrivalent [facility] 11-28-2022 influenza virus vaccine, unspecified formulation [facility] 11-28-2022 influenza, high dose seasonal, preservative-free Kar Mota Other [facility] [employer] Other 11-26-2021 influenza virus vaccine, split virus (incl. purified surface antigen) Kar Mota Other [facility] [employer] Other 11-26-2021 influenza virus vaccine, unspecified formulation [facility] 05-30-2021 COVID-19 Vaccine Pfi zer - Documentation Purposes Only Kar Mota Other [facility] 12-04-2020 influenza virus vaccine, split virus (incl. purified surface antigen) Kar Mota Other [facility] [employer] Other 12-04-2020 influenza virus vaccine, unspecified formulation [facility] 11-22-2020 COVID-19 Vaccine Pfi zer - Documentation Purposes Only Kar Mota Other [facility] 04-18-2020 COVID-19 Vaccine Pfi zer - Documentation Purposes Only Kar Mota Other [facility] 03-28-2020 COVID-19 mRNA, Comirnaty (Pfizer) [facility] 03-28-2020 COVID-19 Vaccine Moderna - Documentation Purposes Only Kar Mota Other [facility] 11-07-2019 influenza virus vaccine, split virus (incl. purified surface antigen) Kar Mota Other [facility] [employer] Other 11-07-2019 influenza virus vaccine, unspecified formulation [facility] 11-26-2018 influenza virus vaccine, split virus (incl. purified surface antigen) Kar Mota Other [facility] [employer] Other 11-26-2018 influenza virus vaccine, unspecified formulation [facility] 12-07-2017 influenza virus vaccine, split virus (incl. purified surface antigen) Kar Mota Other [facility] [employer] Other 12-07-2017 influenza virus vaccine, unspecified formulation [facility] 12-19-2016 influenza virus vaccine, split virus (incl. purified surface antigen) Kar Mota Other [facility] [employer] Other 12-19-2016 influenza virus vaccine, unspecified formulation [facility] 12-01-2015 influenza virus vaccine, split virus (incl. purified surface antigen) Kar Mota Other [facility] [employer] Other 12-01-2015 influenza virus vaccine, unspecified formulation [facility] 05-15-2015 pneumococcal conjuga te vaccine, 13 valent Kar Mota Other [facility] 12-10-2014 influenza virus vaccine, split virus (incl. purified surface antigen) Kar Mota Other [facility] [employer] Other 12-10-2014 influenza virus vaccine, unspecified formulation [facility] 12-18-2013 tetanus and diphther ia toxoids, adsorbed, preservative free, for adult use (5 Lf of tetanus toxoid and 2 Lf of diphtheria toxoid) Kar Mota Other [facility] 2013 pneumococcal polysaccharide vaccine, 23 valent Kar Mota Other [facility] 12-17-2012 tetanus and diphther ia toxoids, adsorbed, preservative free, for adult use (5 Lf of tetanus toxoid and 2 Lf of diphtheria toxoid) Kar Mota Other [facility] Payers Date Payer Category Payer Private Health Insurance 2017 Medicare HU[employer]NA MEDICARE HU[employer] MEDICARE PPO [id number] 2017-Present [phone] [address] [address] [place] [address] PPO [id number] 1961 Medicare [id number] 1950 Unknown [id number] 1950 Unknown [id number] .593 1950 Unknown [id number] .593 1950 Unknown [id number] .593 1950 Unknown [id number] [id number] .593 1950 Unknown [id number] [id number] .593 1950 Unknown [id number] [id number] .593 1950 Unknown [id number] 2.16.840.1.555416.3.579.2 .593 1948 Unknown [id number] 2.16.840.1.090229.3.579.2 .593 1948 Unknown [id number] 2.16.840.1.467471.3.579.2 .593 1950 Unknown [id number] Unknown [id number] Self-pay Self Pay [id number] Social History Date Type Detail Facility Start: 08-27-2021 End: 10-15-2021 Tobacco smoking status NHIS Ex-smoker [facility] History of tobacco use Current smoker [facility] History of tobacco use Cigarette Smoker [facility] Start: 10-15-2021 Tobacco use and exposure Smokeless tobacco non-user [facility] Start: 10-15-2021 End: 02-01-2022 Alcohol intake Lifetime non-drinker (finding) [facility] Start: 1950 Sex Assigned At Not on file C [facility] Start: 10-05-2021 End: 10-15-2021 Exposure to SARS-CoV-2 (event) Not sure [facility] Sex Assigned At Sex Assigned At Bir th [employer] Other Start: 1950 Sex Assigned At Female F [facility] Start: 02-29-2024 End: 04-08-2024 Sex Female (finding) [facility] Clinical Notes 10-15-2021 to 03-27-2023 Note [...] increased frequency > 3/24 hours and watery [employer] Other 11-27-2023 Evaluation note* Encounter Date Diagnosis Assessment Notes Treatment Notes Treatment Clinical Notes Dec, Pain in thoracic spine (ICD-10 - M54.6) [employer] Other 10-02-2023 Evaluation note* Encounter Date Diagnosis Assessment Notes Treatment Notes Treatment Clinical Notes Nov, Lumbar spondylosis (ICD-10 - M47.816) [employer] Other 07-31-2023 Evaluation note* Encounter Date Diagnosis [...] but may cause increased bloating. [employer] Other 07-31-2023 Evaluation note* Encounter Date Diagnosis [...] but may cause increased bloating. [facility] [employer] Other 12-06-2022 NoteHNO ID: [id number] Author: Wellington Hong MD Service: ? Author [...] information obtained and documented by the physician regulatory affairs assistant. I examined the patient and evaluated [...] when sitting. No partha (more content not included)...[facility]12-06-2022 Instructions* Patient Instructions* Ancelmo Sandoval PA-C - [...] activities immediately. [facility] History of Present illness Narrative* Wellington [...] information obtained and documented by the physician regulatory affairs assistant. I examined the patient and evaluated [...] Past Histories independently gathered by the clinical support dba and the remaining scribed note accurately describes my personal service to the patient. Wellington Hong MD [facility]22 NoteCONSULTATION CONSULTATION DATE: 01/18/2022 CHIEF COMPLAINT: [...] see a spinal surgeon at [facility] in the near future. PHYSICAL EXAM: [...] await the patient's evaluation with [facility]. Subsequent to that, we will make [...] this in February, given her 's illness.[facility] [id number] Note CONSULTATION PROCEDURE DATE: 12/21/2021 CHIEF COMPLAINT: [...] has responded well to this treatment. [facility] [id number] NoteCONSULTATION CONSULTATION DATE: 11/30/2021 CHIEF COMPLAINT: Low [...] annually. The patient has been seen by [facility] with regards to the possibility [...] was encouraged to maintain the communication with [facility] to see whether other options are available. We will repeat the testosterone cypionate on her return visit. The patient understands and would like to proceed. CC: Manjula Marcial M.D.[facility] [id number] NoteCONSULTATION PROCEDURE DATE: 11/23/2021 PREOPERATIVE DIAGNOSIS: Lumbar [...] try to attain a neutral posture laterally.[facility] [id number] NoteCONSULTATION CONSULTATION DATE: 11/23/2021 CHIEF COMPLAINT: Left leg pain, low back pain. HISTORY OF PRESENT ILLNESS: This is a very pleasant, 71-year-old female who is known to the [facility]. The patient has an MRI of her lumbar spine, CT of the thoracic and CT of the lumbar spine. The patient has severe rotoscoliosis. The patient was seen at the [facility]. The patient states she is [...] like to proceed. CC: Manjula Marcial M.D.[facility] [id number] Miscellaneous Notes* Telephone Encounter - Cesilia Adler - 11/16/2021 1:46 PM EDT Received the following record(s) via fax. -MRI tspine wo(report) Date 11/03/21 Record(s) scanned into pt's chart. Cesilia Adler Images requested documented in [facility] encounter[facility]2022 NotePROCEDURE: CT TSPINE WO CON, CT [...] Electronically authenticated by: JEFF FREGOSO Date: 2021-11-03 18:57[facility] NotePROCEDURE: CT TSPINE WO CON, CT [...] Electronically authenticated by: JEFF FREGOSO Date: 2021-11-03 18:57[facility]08-19-2022 NoteHNO ID: [id number] Author: Ancelmo Sandoval PA-C Service: ? Author Type: Physician Dealer Card Room Type: Progress Notes Filed: 10/18/2021 8:52 AM [...] neuromuscular referral to (more content not included)... [facility] note* Diagnosis Scoliosis of thoracolumbar spine, unspecified scoliosis type documented in this encounter [facility] note* Diagnosis Encounter for screening for osteoporosis- Primary Special screening for osteoporosis documented in this encounter [facility] noteNo InformationNortMer[facility] [employer] Other Evaluation note* Diagnosis Onset Date Resolution Status Chronic kidney disease acute Elevated BP without diagnosis of hypertension acute VALDEZ (generalized anxiety disorder) acute GERD (gastroesophageal reflux disease) acute 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 Medicare annual wellness visit, subsequent noneactive Screening mammogram for breast cancer noneactive [facility] Work Phone: Evaluation noteNo assessment information available [facility] Work Phone: History general Narrative - [...] Colonoscopy 2021 Hospitalization History SEE SURGICAL HX [facility] [employer] Other Reason for referral (narrative)* Diagnostic Procedure Only (Routine) - Closed Specialty Diagnoses / Procedures Referred By Contac t Referred To Contact XR IMAGING Diagnoses Scoliosis of thoracolumbar spine, unspecified scoliosis type Procedures XR SCOLIOSIS PA STAND/LAT 2V RADEX ENTIR THRC LMBR CRV SAC SPI W/SKULL 2/3 Ancelmo Wild PA-C [address] [place] [address] Xr Imaging Referral ID Status Reason Start Date Expiration Date V isits Requested Visits Authorized [id number] Closed Auto-Generate d Referral 10/15/2021 11/14/2022 1 1 [facility]* Diagnostic Procedure Only (Routine) - Closed Specialty Diagnoses / Procedures Referred By Contac t Referred To Contact XR IMAGING Diagnoses Scoliosis of thoracolumbar spine, unspecified scoliosis type Procedures XR SCOLIOSIS PA STAND/LAT 2V RADEX ENTIR THRC LMBR CRV SAC SPI W/SKULL 2/3 VW Ancelmo Sandoval PA-C [address] [place] [address] Xr Imaging Referral ID Status Reason Start Date Expiration Date V isits Requested Visits Authorized [id number] Closed Auto-Generate d Referral 10/15/2021 11/14/2022 1 1 [facility] Summary Purpose Family History Relationship Condition [...] Time Advance Directives No August 25 10:58am Advance Directive Response Recorded Date/ Time Advance Directives No August 25 9:58am Chief Complaint and Reason for Visit Chief Complaint Amb Documentation wellness Reason for Visit Chronic kidney disea se Elevated BP without diagnosis of hypertension VALDEZ (generalized anxiety disorder) GERD (gastroesophageal reflux disease) 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 Medicare annual wellness visit, subsequent Screening mammogram for breast cancer Chief Complaint flu shot Chief Complaint Admit Date B12 shot February 15, 2024 8:30am b12 shot February 22, 2024 8:33am B12 Shot February 29, 2024 8: 20am Chief Complaint Admit Date B12 shot February 15, 2024 8:30am b12 shot February 22, 2024 8:33am B12 Shot February 29, 2024 8: 20am b12 shot March 07, 2024 9: 38am Chief Complaint Admit Date B12 shot February 15, 2024 8:30am b12 shot February 22, 2024 8:33am B12 Shot February 29, 2024 8: 20am b12 shot March 07, 2024 9: 38am B12 shot April 08, 2024 10:25am Additional Source Comments INFORMATION SOURCE (unrecogn ized section and content) DATE CREATED AUTHOR 09/02/2021 [facility] DATE CREATED AUTHOR AUTHOR'S ORGANIZ ATION 03/07/2022 [facility] DATE CREATED AUTHOR AUTHOR'S ORGANIZ ATION 07/13/2022 [facility] DATE CREATED AUTHOR AUTHOR'S ORGANIZ ATION 02/23/2024 [facility] Source Comments (unrecognize d section and content) In the event this informatio n is protected by the Federal Confidentiality of Alcohol and Drug Abuse Patient Records regulations: The Federal rules restrict any use of the information to criminally investigate or prosecute any alcohol or drug abuse patient.[facility] the event this information is protected by the Federal Confidentiality of Alcohol and Drug Abuse Patient Records regulations: The Federal rules restrict any use of the information to criminally investigate or prosecute any alcohol or drug abuse patient.[facility] the event this information is protected by the Federal Confidentiality of Alcohol and Drug Abuse Patient Records regulations: The Federal rules restrict any use of the information to criminally investigate or prosecute any alcohol or drug abuse patient.[facility] Reason for Visit (unrecogniz ed section and content) Reason Comments Results Reason Comments New Patient Care Teams (unrecognized sec tion and content) Team Status: Active Member Role Status Dates Kar Mota , DO Primary Care Provider Active Team Status: Active Member Role Status Dates Kar Mota , DO Primary Care Provide r, Attending Provider Active Start: December 15, 2023 Team Status: Active Member Role Status Dates Kar Mota , DO Primary Care Provide r, Attending Provider Active Start: February 09, 2024 Team Status: Inactive Member Role Status Dates Kar Mota , DO Primary Care Provide r, Attending Provider Active Start: February 15, 2024 End: February 15, 2024 Team Status: Inactive Member Role Status Dates Kar Mota , DO Primary Care Provide r, Attending Provider Active Start: February 22, 2024 End: February 22, 2024 Team Status: Inactive Member Role Status Dates Kar Mota , DO Primary Care Provide r, Attending Provider Active Start: February 29, 2024 End: February 29, 2024 Team Status: Inactive Member Role Status Dates Kar Mota , DO Primary Care Provide r, Attending Provider Active Start: November 16, 2023 End: November 16, 2023 Team Status: Active Member Role Status Dates Kar Mota , DO Primary Care Provider Active Start: July 19, 2023 KARLA Santamaria Attending Provider Active Start : July 19, 2023 Team Status: Inactive Member Role Status Narinder Mota , DO Primary Care Provide r, Attending Provider Active Start: August 03, 2023 End: August 03, 2023 Team Status: Inactive Member Role Status Dates Kar Nakul , DO Primary Care Provide r, Attending Provider Active Start: March 07, 2024 End: March 07, 2024 Team Status: Inactive Member Role Status Dates Kar Mota , DO Primary Care Provide r, Attending Provider Active Start: April 08, 2024 End: April 08, 2024 Goals (unrecognized section and content) Goals may [...] BE BASED ON THE PRIMARY CLINICAL RECORDS. [facility] [employer] [facility]. provides no warranty or guarantee of the accuracy or completeness of information in this document.
[2024-05-03 07:08] LABS: Basophils Absolute Auto 0.1 10^3/uL (0.0-0.1); Basophils Percent Auto 0.9 % (0.2-2.0); Eosinophils Absolute Auto 0.2 10^3/uL (0.0-0.7); Eosinophils Percent Auto 2.6 % (0.9-7.0); Hemoglobin 11.2 g/dL (12.0-16.0); Immature Granulocytes Abs Auto 0.02 10^3/uL (0.00-0.03); Immature Granulocytes Pct Auto 0.4 % (0.0-0.5); Lymphocytes Percent Auto 34.3 % (20.5-60.0); Mean Corpuscular HGB Conc 32.9 g/dL (29.9-35.2); Mean Corpuscular Hemoglobin 30.9 pg (26.7-34.0); Mean Corpuscular Volume 93.9 fL (81.0-99.0); Mean Platelet Volume 8.5 fL (9.5-13.5); Monocytes Absolute Auto 0.7 10^3/uL (0.3-0.8); Monocytes Percent Auto 11.4 % (1.7-12.0); Neutrophils Absolute Auto 2.9 10^3/uL (1.4-6.5); Neutrophils Percent Auto 50.4 % (43.0-75.0); Platelet Count 276 10^3/uL (150-450); Red Blood Count 3.62 10^6/uL (4.20-5.40); Red Cell Distribution Width 13.8 % (11.0-15.0); White Blood Count 5.7 10^3/uL (4.0-11.0)
== END 2024-05-03 06:52 | disposition home or self-care (01) ==
LOC: LAB 06:52
PROVIDERS: PCP Internal Medicine; Visit Provider Internal Medicine
DX: D64.9 Anemia, unspecified (principal)
CPT/HCPCS: 36415; 85025

== ENCOUNTER 2024-09-04 11:39 | Outpatient (OUT) | payer MEDICARE, SELFPAY ==
--- NOTE | 2024-09-04 12:04 | PM.CN ---
Consult Note: HPI Data of Consult Patient: known to practice within the last 3 years Consult date: 09/04/24 Requesting Physician: Hiwot Irving NP Primary Care Provider: Kar Mota DO Consult Narrative Reason for consult: low back and RLE pain Narrative: Courteny dougherty pleasant 73 year old female presents for evaluation of chronic low back pain secondary to scoliosis, lumbar degeneration, and lumbar stenosis. pt has failed to benefit from > 6 weeks of PT/HEP, heat, ice, tylenol, NSAIDs. utilizing nabumetone, tylenol, baclofen, gabapentin with mild relief. pain today 5-6/10 increasing to 10/10 with activity and mowing. reports improvement with forward flexion and sitting. prior right L3/4 L4/5 TFESI provided at least 50% improvement for 3 months, notes significant relief >80% improvement for 6 weeks. cc:: CC: Hiwot Irving NP Review of Systems ROS Status of ROS 10 or more systems reviewed and unremarkable except as noted in history and below Musculoskeletal Reports: back pain PFSH PFSH Medical History Rheumatoid arthritis ?M06.9 - Rheumatoid arthritis, unspecified (ICD-10) Low back pain ?M54.50 - Low back pain, unspecified (ICD-10) Family history of psychiatric condition ?Z81.8 - Family history of other mental and behavioral disorders (ICD-10) Former smoker ?Z87.891 - Personal history of nicotine dependence (ICD-10) Surgical History History of dilatation and curettage ?Z98.890 - Other specified postprocedural states (ICD-10) Meds Home Medications and Allergies Home Medications ?Medication ?Instructions ?Recorded ?Confirmed ?Type acetaminophen 325 mg tablet (Aphen) 325 mg PO Q6H PRN pain 08/09/22 02/19/24 History szrkojz-I8-bkj-P4-E07-qllzpsashchg tab PO .QD 08/09/22 History 500 mg-200 unit-50 mg-1.2 mg tablet nabumetone 750 mg tablet 750 mg PO BID 08/09/22 02/19/24 History vitamins A,C,P-hrsm-yzfupl 2,148 2 tab PO BID 08/09/22 02/19/24 History mcg-113 mg-45 mg-17.4 mg tablet (Eye Multivitamin) zoledronic acid 5 mg/100 mL in ea IV .YEARLY 08/09/22 History mannitol 5 %-water intravenous piggybck (Reclast) gabapentin 08/16/22 History baclofen 10 mg tablet 10 mg PO DAILY #30 tabs 11/02/22 02/19/24 Rx diazepam 5 mg tablet (Valium) 5 mg PO DAILY 02/19/24 02/19/24 History Allergies Allergy/AdvReac Type Severity Reaction Status Date / Time amoxicillin Allergy Hives Verified 02/19/24 07:24 nitrofurantoin (From Allergy Hives Verified 02/19/24 07:24 Macrobid) Sulfa (Sulfonamide Allergy Hives Verified 02/19/24 07:24 Antibiotics) Exam Constitutional Documenting provider has reviewed patient's vital signs: yes Common normals: no apparent distress, oriented x3, healthy appearing, alert and well nourished General appearance: cooperative HENMT Common normals: normocephalic, hearing grossly normal bilaterally and moist oral mucous membranes Head and scalp: normocephalic Eye Common normals: PERRL Pupil: PERRL Neck & C-Spine Common normals: full ROM General: normal visual inspection Chest Common normals: inspection of chest normal Respiratory Common normals: normal respiratory effort, no retractions and no use of accessory muscles Back & Pelvis Lumbar spine/lower back: ROM limited, pain with ROM, lumbar scoliosis present and straight leg raise positive right Sacroiliac joints: SI joint(s) abnormal Other: right>left SIJ positive cosmo(patricks), gaenslens, thigh thrust, compression test decreased sensation to right L3,4,5 strength 4/5 in RLE and 5/5 in LLE Extremity Common normals: normal to inspection and full ROM Neuro Common normals: oriented x3 Sensorium/orientation: alert Motor exam: no movement abnormalities noted Psych Common normals: mental status grossly normal, thought process normal, cooperative, affect normal, speech normal and activity/motor behavior normal Speech: normal speech Thought process: normal thought process Assessment and Plan Assessment and Plan (1) Lumbar stenosis with neurogenic claudication: Assessment and Plan: The patient has had over 3 months of moderate to severe low back and RLE pain with functional impairment and inadequate response to conservative care including NSAIDS (unless there are contraindication such as concurrent blood thinners), multiple oral or topical pain medications, and home exercise program/physical therapy.? Patient has completed >6 weeks of guided home exercise program and/or formal physical therapy program without relief of their symptoms.? The Oswestry Disability Index was completed, and the patient scored a 50%.? The patient noted the following:?? moderate to severe pain impacting ADLs, sitting, standing, walking, sleeping, social life, travel We discussed the risks and benefits of the procedure with the patient, and we are NOT planning on using sedation as outlined in the guidelines from Medicare unless there is a documented reason that sedation would be strongly recommended.?? ?The procedure will be completed with fluoroscopic guidance.? (2) Lumbar spondylosis: (3) Myofascial pain: (4) Scoliosis: (5) Rheumatoid arthritis: (6) Low back pain: Plan proceed with repeat right L3-4 L4-5 TFESI under fluoroscopy, prior injection provided at least 50% improvement in pain and functional ability for 3 months continue current medications continue HEP as tolerated f/u 2 weeks after injection, consider bilateral SIJ injection if needed
== END 2024-09-04 11:40 | disposition home or self-care (01) ==
PROVIDERS: PCP Internal Medicine; Visit Provider Nurse Practitioner
DX: M48.062 Spinal stenosis, lumbar region with neurogenic claudication (principal); M47.816 Spondylosis without myelopathy or radiculopathy, lumbar region; M79.18 Myalgia, other site; M41.9 Scoliosis, unspecified; M06.9 Rheumatoid arthritis, unspecified; M54.50 Low back pain, unspecified
CPT/HCPCS: G0463

== ENCOUNTER 2024-09-30 07:28 | Day surgery (SDC) | payer MEDICARE, SELFPAY ==
--- OUTSIDE RECORDS SUMMARY | 2023-11-17 06:30 | XMS_ITS ---
Author Organization [facility] Address [address] [place] [address] Care Team Providers Care Pile Driver Operator Barge Mounted Name Role Phone HORTENCIA BHARDWAJ DO Primary Care Provider Wilfred Covarrubias Unavailable [phone] ELAINA TUCKER CNP Unavailable Unavailable Chang Salamanca Unavailable [phone] REASON FOR VISIT LUMBAR PAIN Encounters Encounter Location Date Provider Diagnosis [facility] [facility] [address] [place] [phone] 11/17/2023 Chang Salamanca Plan Of Treatment No Information Progress Notes * KIMBERLY LUJAN LDOB:1950 (73 yo F)Acc No.[id number]:11/17/2023 Patient: KIMBERLY BOYD Provider: Luis Bonner MD, PhD :1950 A ge:73 Y S ex:Female Date:11/17/2023 Address:[address] [place], [place] [id number] Pcp:HORTENCIA BHARDWAJ DO Subjective: * Chief Complaints: * 1 . LUMBAR PAIN. * Medical History: Objective: * Vitals: Assessment: Plan: * Treatment: Forms: * Images: * Electronic signature of Jessica Salamanca MD, PHD on 09/30/2024 at 07:30 AM EDT Sign off status: Pending * Provider: Luis Bonner MD, PhD Date: 0 11/17/2023 Generated for Printi ng/Faxing/eTransmitting on: 0 09/30/2024 07:30 AM EDT
--- OUTSIDE RECORDS SUMMARY | 2023-12-01 06:30 | XMS_ITS ---
Author Organization [facility] Address [address] [place] [address] Care Team Providers Care Active Directory Specialist Name Role Phone HORTENCIA BHARDWAJ DO Primary Care Provider Wilfred Covarrubias Unavailable [phone] ELAINA TUCKER CNP Unavailable Unavailable Chang Salamanca Unavailable [phone] REASON FOR VISIT LUMBAR PAIN Encounters Encounter Location Date Provider Diagnosis [facility] [address] [place] [phone] 12/01/2023 Chang Salamanca Plan Of Treatment No Information Progress Notes * KIMBERLY LUJAN LDOB:1950 (73 yo F)Acc No.[id number]:12/01/2023 Patient: KIMBERLY BOYD Provider: Luis Bonner MD, PhD :1950 A ge:73 Y S ex:Female Date:12/01/2023 Address:[address] [place], [place] [phone] Pcp:HORTENCIA BHARDWAJ DO Subjective: * Chief Complaints: * 1 . LUMBAR PAIN. * Medical History: Objective: * Vitals: Assessment: Plan: * Treatment: Forms: * Images: * Electronic signature of Jessica Salamanca MD, PHD on 09/30/2024 at 07:30 AM EDT Sign off status: Pending * Provider: Luis Bonner MD, PhD Date: 1 Generated for Louie lu/Faxing/eTransmitting on: 0 09/30/2024 07:30 AM EDT
--- OUTSIDE RECORDS SUMMARY | 2024-09-30 07:30 | XMS_ITS | Encounter Summary ---
Author Organization [facility] Address [address] [place] [id number] Care Team Providers Care Sales Operations Lead Name Role Phone Unavailable Primary Care Provider Unavailabl e Source Comments In the event this information is protected by the Federal Confidentiality of Alcohol and Drug AbusePatient Records regulations: The Federal rules restrict any use of the information to criminally investigate or prosecute any alcohol or drug abuse patient.[facility] Encounter Details Date Type Department Care Team (Late st Contact Info) Description 06/07/2022 Patient Msg Neurology [address] [place], [place] [id number] Provider, [facility] Appointment Reschedule Social History Tobacco Use Types Packs/Day Years Used Date Smoking Tobacco: Former Cigarettes Smokeless Tobacco: Never Alcohol Use Standard Drinks/Week Comments Never 0 (1 standard drink = 0.6 oz pur e alcohol) PHQ-2 Answer Date Recorded PHQ-2 score 6 02/01/2022 Area Deprivation Index Answer Date Shorty rded National Score (1-100), lower number is lower ri sk 70 03/24/2022 State Score (1-10), lower number is lower risk N ot on file 03/24/2022 Data from: https://www.neighborhoodatlas.medicine.[facility].edu/. Last address used for calculation [address] [place] [address] 03/24/2022 Comments Unknown Sex and Gender Information Value Date Recorded Sex Assigned at Not on file Legal Sex Female 9:37 AM EST Gender Identity Not on file Sexual Orientation Not on file documented as of this encounter Plan of Treatment Not on file documented as of this encounter Visit Diagnoses Not on filedocumented in this encounter
--- OUTSIDE RECORDS SUMMARY | 2024-09-30 07:31 | XMS_ITS | CCD ---
Author Organization [facility]iniSy[facility] Care Team Providers Care Bench Inspector Name Role Phone Unavailable Primary Care Provider Unavailalcides e BONUS, ANCELMO Attending Unavailable BONUS, ANCELMO Referring Unavailable BONUS, ANCELMO Referring Unavailable JOSE A HONG Attending Unavailable Unavailable Primary Care Provider Unavailalcides MARCIAL, DR KATHRINE Hart Primary Care Unavailable HARRIS ., DR DUC Smith Attending Unavailable HARRIS ., DR DUC Smith Admitting Unavailable HARRIS ., DR DUC Smith Consulting Unavailable AGGIE, DR KATHRINE Hart Primary Care Unavailable HARRIS ., DR DUC Smith Consulting Unavailable HARRIS ., DR DUC Smith Attending Unavailable HARRIS ., DR DUC Smith Admitting Unavailable MARCIAL, DR KATHRINE Hart Primary Care Unavailable HARRIS ., DR DUC Smith Consulting Unavailable HARRIS ., DR DUC Smith Attending Unavailable HARRIS ., DR DUC Smith Admitting Unavailable MARCIAL, DR KATHRINE Hart Primary Care Unavailable CHERY ., MARTINEZ Attending Unavailable HALLORNA ., MARTINEZ Admitting Unavailable AGGIE, DR KATHRINE Hart Primary Care Unavailable HARRIS ., DR DUC Smith Consulting Unavailable HARRIS ., DR DUC Smith Attending Unavailable HARRIS ., DR DUC Smith Admitting Unavailable HARRIS ., DR DUC Smith Consulting Unavailable HARRIS ., DR DUC Smith Attending Unavailable HARRIS ., DR DUC Smith Admitting Unavailable AGGIE, DR KATHRINE Hart Primary Care Unavailable LASHAE, DR BURNETT Admitting Unavailable BALL, DR BURNETT [...] BALL, DR BURNETT Attending Unavailable MARCIAL, DR KATHRINE Hart Primary Care Unavailable BALL, DR BURNETT Consulting Unavailable BALL, DR BURNETT Attending Unavailable BALL, DR BURNETT Admitting Unavailable WEST, DR JEFF Choi Consulting Unavailable DR MARTA ELIAS Consulting Unavailable KIMBERLY ., DR DUC Smith Attending Unavailable KIMBERLY ., DR DUC Smith Admitting Unavailable AGGIE, DR KATHRINE Hart Primary Care Unavailable AGGIE, DR KATHRINE Hart Consulting Unavailable KIMBERLY ., DR DUC Smith Consulting Unavailable Kar Mota Unavailable Cassie VALE, Clifton Sena Attending Unavailable Kar Mota DO Primary Care Provider Kar Mota DO Attending Provider Allergies Allergy Classification Reported Allergen(s) Allergy Type Date of Onset Reaction(s) Facility (13 sources) Amoxicillin; Translations: [AMOXICILLIN] Drug Allergy 2 Anaphylaxis [facility] Comment on above: Onset Date: 02/08/20 16 (14 sources) NITROFURANTOIN, MACROCRYSTALS / Nitrofurantoin, Monohydrate; Translations: [NITROFURANTOIN MONOHYD/M-CRYST] Drug Allergy 2 Anaphylaxis [facility] (20 sources) Sulfonamides (Antibiotic); Translations: [SULFA (SULFONAMIDE ANTIBIOTICS)] Drug Allergy 2 Anaphylaxis [facility] (1 source) Amoxicillin Drug Allergy 1 [facility] (2 sources) Nitrofurantoin Drug Allergy 3 [facility] (2 sources) Sulfonamides (Antibiotic) Drug allergy (disorder) 3 [facility] (10 sources) Amoxicillin-Pot Clavulanate Drug allergy 6 Unknown Zumigo Other (9 sources) Clavulanate Drug Allergy 4 Unknown Reaction [facility] Comment on above: Onset Date: 02/08/20 16 (9 sources) Nitrofurantoin Drug Allergy 4 Difficulty Breathing [facility] Medications Current Medications Medication Drug Class(es) Dates Sig (Normalized) Sig (Original) acetaminophen 500 mg oral tablet (9 sources) Start: 08-27-2021 Acetaminophen (Acetaminophen Extra Strength) 500 mg Tablet Active 500 MG PO As Directed as needed for pain August 27, 2021 12:00am Complies with drug therapy azithromycin 250 mg oral tablet (2 sources) Macrolide Antimicrobial Start: 03-27-2023 Azithromycin 250 MG as directed Orally daily for 5 days Feb, Active baclofen 10 mg oral tablet (20 sources) gamma-Aminobutyric Acid-ergic Agonist Start: 08-21-2018 take 1 tablet by mouth once daily at bedtime Baclofen 10 mg Tablet Active 10 MG PO Daily at bedtime August 27, 2021 12:00am Complies with drug therapy Comment on above: Take 10 mg by mouth daily at bedtime. calcium carbonate 1500 mg / cholecalciferol 200 unt oral tablet (9 sources) Vitamin D Start: 08-27-2021 take 1 tablet by mouth twice daily Calcium Carbonate-Vitamin D3 (Calcium + D) 600 mg-5 mcg (200 unit) Tablet Active 1 TAB PO Twice daily August 27, 2021 12:00am Complies with drug therapy docusate sodium 50 mg / sennosides, chcf 8.6 mg oral tablet (3 sources) Start: 12-26-2022 take 8.6-50 mg by mouth once daily in the evening as needed Senokot S 8.6-50 MG 1 tablet as needed Orally q evening for 30 days Nov, Active Vit C,G-Ke-Eyirq-Lutein-Z eaxan (Preservision Areds-2) 250-90-40-1 mg Capsule (9 sources) Start: 08-27-2021 Vit C,X-Br-Cfakw-Lutei n-Zeaxan (Preservision Areds-2) 250-90-40-1 mg Capsule Active 1 TAB PO Twice daily August 27, 2021 12:00am Complies with drug therapy Start: 08-27-2021 Vit C,E-Zn-Psychiatric Security Nurse fv-Nckeji-Mdzkvv (Preservision Areds-2) 250-90-40-1 mg Capsule Active 1 TAB PO Twice daily August 26, 2021 11:00pm Start: 08-27-2021 Vit C,E-Zn-Psychiatric Security Nurse ox-Phidwp-Aqnulf (Preservision Areds-2) 250-90-40-1 mg Capsule Active 1 TAB PO Twice daily August 27, 2021 12:00am 100 ml zoledronic acid 0.05 mg/ml injection (12 sources) Bisphosphonate Start: 08-27-2021 take 5 mg intravenously once Zoledronic Btxu-Clziohls-Vnnhh (Reclast) 5 mg/100 mL Piggyback Active 5 MG IV Once August 27, 2021 12:00am Complies with drug therapy zoledronic acid (RECLAST) 5 mg/100 mL pgbk PREMIX piggyback Inject 5 mg intravenously every year. 0 Active Comment on above: Inject 5 mg intraven ously every year. Completed/Discontinued Medications Medication Drug Class(es) Dates Sig (Normalized) Sig (Original) gabapentin 100 mg oral capsule (20 sources) Anti-epileptic Agent Start: 08-28-2023 End: 05-08-2024 take 2 capsules by mouth twice daily Gabapentin 100 mg capsule Discontinued 200 MG PO Twice daily 360 November 13, 2023 1:52pm May 08, 2024 9:26am Start: 08-28-2023 End: 11-13-2023 take 200 mg [...] 2023 11:03am August 18, 2023 1:08pm Start: 07-19-2023 End: 08-18-2023 take 200 mg [...] Discontinued 100 MG PO Twice daily August 27, 2021 12:00am July 19, 2023 10:39am Comment on above: Take 200 mg by mouth twice daily. nabumetone 750 mg oral tablet (20 sources) Nonsteroidal Anti-inflammatory Drug Start: End: take 1 tablet by mouth twice daily Nabumetone 750 mg tablet Discontinued 750 MG PO Twice daily 180 90 November 13, 2023 1:51pm May 08, 2024 9:26am omeprazole 40 mg delayed release oral capsule (12 sources) Proton Pump Inhibitor Start: 2 End: 5 take 1 capsule by mouth twice daily Omeprazole 40 mg capsule,delayed release(DR/EC) Discontinued 40 MG PO Twice daily 168 84 August 27, 2021 12:00am May 08, 2024 9:19am Comment on above: TAKE 1 CAPSULE BY [facility] 2 TIMES DAILY FOR 12 WEEKS vit [...] to other specified organisms Episodic Anxiety disorders (20 sources) Generalized anxiety disorder; Translations: [Generalized anxiety disorder] 08-01-2023 Chronic Chronic kidney disease (14 sources) Chronic kidney disease; Translations: [Chronic kidney disease, unspecified] 08-03-2023 Chronic Conditions associated with dizziness or vertigo (14 sources) Benign paroxysmal positional vertigo; Translations: [Benign paroxysmal vertigo, unspecified ear] Onset: 4 Episodic Deficiency and other anemia (12 sources) Anemia; Translations: [Anemia, unspecified] 08-03-2023 Episodic Deficiency and other anemia (8 sources) Pernicious anemia; Translations: [Vitamin B12 deficiency anemia due to intrinsic factor deficiency] 02-15-2024 Episodic Deficiency and other anemia (4 sources) Vitamin B12 deficiency anemia due to intrinsic factor deficiency; Translations: [Pernicious anemia] 05-08-2024 Episodic Esophageal disorders (14 sources) Gastroesophageal reflux disease; Translations: [Gastro-esophageal reflux disease without esophagitis] 08-01-2023 Chronic Essential hypertension (2 sources) Hypertensive disorder; Translations: [Essential (primary) hypertension] 09-16-2024 Chronic Gastroduodenal ulcer (except hemorrhage) (7 sources) [...] mastopathy of unspecified breast] Chronic Nutritional deficiencies (16 sources) Vitamin D deficiency, unspecified; Translations: [Vitamin [...] of thoracolumbar region] Chronic Other acquired deformities (14 sources) Other secondary scoliosis, site unspecified; 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] 08-01-2023 Chronic Other aftercare (2 sources) 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; Translations: [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 ARCHITECT CURRENT DRUG THERAPY] Onset: 2 Episodic Other aftercare (6 sources) Long-term current use of drug therapy; Translations: [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] Episodic Other bone disease and musculoskeletal deformities (7 sources) Bone density finding; Translations: [Other specified disorders of bone density and structure, unspecified site] Episodic Other circulatory disease (8 sources) Elevated blood-pressure reading without diagnosis of hypertension; Translations: [Elevated blood-pressure reading, without diagnosis of hypertension] 08-03-2023 Episodic Other circulatory disease (4 sources) Elevated blood-pressure reading, without diagnosis of hypertension; [...] chronic pain] Chronic Other nervous system disorders (3 sources) Carpal tunnel syndrome; Translations: [Carpal tunnel syndrome, bilateral upper limbs] 05-08-2024 Chronic Other nervous system disorders (3 sources) Carpal tunnel syndrome, bilateral upper limbs; Translations: [Carpal tunnel syndrome] 05-08-2024 Chronic Other nervous system disorders (2 sources) Bilateral carpal tunnel syndrome; Translations: [Carpal tunnel syndrome, bilateral upper limbs] 05-08-2024 Chronic Other nervous system disorders (7 sources) Paresthesia; Translations: [Paresthesia of skin] Episodic Other nutritional; endocrine; and metabolic disorders (6 sources) Abnormal weight loss; Translations: [Abnormal weight loss] Episodic Other nutritional; endocrine; and metabolic disorders (1 source) Abnormal weight loss; Translations: [Abnormal weight loss] Episodic Other screening for suspected conditions (not mental disorders or infectious disease) (16 sources) Patient encounter status; Translations: [Encounter for [...] Range Facility Basophils Auto (Bld) [#/Vol] on 05-03-2024 Basophils (Bld) [#/Vol] Automated basophil count 0.0-0.1 [facility] Basophils/100 WBC Auto (Bld) on 05-03-2024 Basophils/100 WBC (Bld) Automated basophil % 0.2-2.0 [facility] Eosinophils/100 WBC Auto (Bl d)on 05-03-2024 Eosinophils/100 WBC (Bld) Automated eosinophil % 0.9-7.0 [facility] Erythrocyte distribution wid th Auto (RBC) [Ratio]on 05-03-2024 Erythrocyte distribution width (RBC) [Ratio] Erythrocyte distribution width [Ratio] by Automated count 11.0-15.0 [facility] Hematocrit Auto (Bld) [Volum e fraction]on 05-03-2024 Hematocrit (Bld) [Volume fraction] Hematocrit [Volume Fraction] of Blood by Automated count Low 36.0-48.0 [facility] Hemoglobin [Mass/volume] in Bloodon 05-03-2024 Hemoglobin (Bld) [Mass/Vol] Hemoglobin [Mass/volume] in Blood Low 12.0-16.0 [facility] Laboratory - Hematology and Cell countson 05-03-2024 Immature granulocytes/100 WBC (Bld) 0.4 % 0.0-0.5 [facility] Leukocytes [#/volume] correc ric for nucleated erythrocytes in Blood by Automated counon 05-03-2024 WBC corrected for nucl RBC Auto (Bld) [#/Vol] Leukocytes [#/volume] corrected for nucleated erythrocytes in Blood by Automated coun 4.0-11.0 [facility] Lymphocytes Auto (Bld) [#/Vo l]on 05-03-2024 Lymphocytes (Bld) [#/Vol] Lymphocytes [#/volume] in Blood by Automated count 1.2-3.8 [facility] Lymphocytes/100 WBC Auto (Bl d)on 05-03-2024 Lymphocytes/100 WBC (Bld) Lymphocytes/100 leukocytes in Blood by Automated count 20.5-60.0 [facility] MCH Auto (RBC) [Entitic mass ]on 05-03-2024 MCH (RBC) [Entitic mass] MCH [Entitic mass] by Automated count 26.7-34.0 [facility] MCHC Auto (RBC) [Mass/Vol]on 05-03-2024 MCHC (RBC) [Mass/Vol] MCHC [Mass/volume] by Automated count 29.9-35.2 [facility] MCV Auto (RBC) [Entitic vol] on 05-03-2024 MCV (RBC) [Entitic vol] MCV [Entitic volume] by Automated count 81.0-99.0 [facility] Monocytes Auto (Bld) [#/Vol] on 05-03-2024 Monocytes (Bld) [#/Vol] Automated blood monocyte count 0.3-0.8 [facility] Monocytes/100 WBC Auto (Bld) on 05-03-2024 Monocytes/100 WBC (Bld) Automated monocyte % 1.7-12.0 [facility] Neutrophils Auto (Bld) [#/Vo l]on 05-03-2024 Neutrophils (Bld) [#/Vol] Neutrophils [#/volume] in Blood by Automated count 1.4-6.5 [facility] Neutrophils/100 WBC Auto (Bl d)on 05-03-2024 Neutrophils/100 WBC (Bld) Automated neutrophil % 43.0-75.0 [facility] No Panel Informationon 05-03 Eosinophils # (Auto) 0.2 10 3/uL 0.0-0.7 [facility] Immature Granulocyte # (Auto) 0.02 10 3/uL 0.00-0.03 [facility] Platelet mean volume Auto (B ld) [Entitic vol]on 05-03-2024 Platelet mean volume (Bld) [Entitic vol] Platelet mean volume [Entitic volume] in Blood by Automated count Low 9.5-13.5 [facility] Platelets Auto (Bld) [#/Vol] on 05-03-2024 Platelets (Bld) [#/Vol] Platelets [#/volume] in Blood by Automated count 150-450 [facility] RBC Auto (Bld) [#/Vol]on RBC (Bld) [#/Vol] Erythrocytes [#/volume] in Blood by Automated count Low 4.20-5.40 [facility] Basophils Auto (Bld) [#/Vol] on 02-09-2024 Basophils (Bld) [#/Vol] Automated basophil count 0.0-0.1 [facility] Basophils/100 WBC Auto (Bld) on 02-09-2024 Basophils/100 WBC (Bld) Automated basophil % 0.2-2.0 [facility] Eosinophils/100 WBC Auto (Bl d)on 02-09-2024 Eosinophils/100 WBC (Bld) Automated eosinophil % 0.9-7.0 [facility] Erythrocyte distribution wid th Auto (RBC) [Ratio]on 02-09-2024 Erythrocyte distribution width (RBC) [Ratio] Erythrocyte distribution width [Ratio] by Automated count 11.0-15.0 [facility] Estimated glomerular filtrat ion rate (GFR) non- Americanon 02-09-2024 GFR/1.73 sq M.predicted among non-blacks MDRD (S/P/Bld) [Vol rate/Area] Estimated glomerular filtration rate (GFR) non- Low >=60 mL/min/1.73m 2 [facility] Hematocrit Auto (Bld) [Volum e fraction]on 02-09-2024 Hematocrit (Bld) [Volume fraction] Hematocrit [Volume Fraction] of Blood by Automated count Low 36.0-48.0 [facility] Hemoglobin [Mass/volume] in Bloodon 02-09-2024 Hemoglobin (Bld) [Mass/Vol] Hemoglobin [Mass/volume] in Blood Low 12.0-16.0 [facility] Iron binding capacity [Mass/ volume] in Serum or Plasmaon 02-09-2024 Iron binding capacity [Mass/Vol] Iron binding capacity [Mass/volume] in Serum or Plasma 250.0-450.0 [facility] Iron saturation [Mass Fracti on] in Serum or Plasmaon 02-09-2024 Iron saturation [Mass fraction] Iron saturation [Mass Fraction] in Serum or Plasma [facility] Laboratory - Chemistry and C hemistry - challengeon 02-09-2024 Calcium [Mass/Vol] 9.8 mg/dL 8.5-10.1 [facility] Chloride [Moles/Vol] 107 mmol/L 98-107 [facility] CO2 [Moles/Vol] 31.1 mmol/L 21.0-32.0 [facility] Cobalamin (Vitamin B12) [Mass/Vol] 250 pg/mL 232-1245 [facility] Comment on above: Performed at: - [facility] [address] [id number] Director: Primo Richard PhD, Phone: [phone] Creatinine [Mass/Vol] 1.25 mg/dL High 0.55-1.02 [facility] Ferritin [Mass/Vol] 28.0 ng/mL 8.0-252.0 [facility] GFR/1.73 sq M.predicted MDRD (S/P/Bld) [Vol rate/Area] 51 mL/min/{1.73_m2} Low >=60 mL/min/1.73m 2 [facility] Glucose [Mass/Vol] 87 mg/dL 74-106 [facility] Iron [Mass/Vol] 122.0 ug/dL 50.0-170.0 [facility] Potassium [Moles/Vol] 4.1 mmol/L 3.5-5.1 [facility] Sodium [Moles/Vol] 147 mmol/L High 136-145 [facility] Urea nitrogen [Mass/Vol] 20.0 mg/dL High 7.0-18.0 [facility] Urea nitrogen/Creatinine [Mass ratio] 16.0 mg/mg [facility] Laboratory - Hematology and Cell countson 02-09-2024 Immature granulocytes/100 WBC (Bld) 0.2 % 0.0-0.5 [facility] Leukocytes [#/volume] correc ric for nucleated erythrocytes in Blood by Automated counon 02-09-2024 WBC corrected for nucl RBC Auto (Bld) [#/Vol] Leukocytes [#/volume] corrected for nucleated erythrocytes in Blood by Automated coun 4.0-11.0 [facility] Lymphocytes Auto (Bld) [#/Vo l]on 02-09-2024 Lymphocytes (Bld) [#/Vol] Lymphocytes [#/volume] in Blood by Automated count 1.2-3.8 [facility] Lymphocytes/100 WBC Auto (Bl d)on 02-09-2024 Lymphocytes/100 WBC (Bld) Lymphocytes/100 leukocytes in Blood by Automated count 20.5-60.0 [facility] MCH Auto (RBC) [Entitic mass ]on 02-09-2024 MCH (RBC) [Entitic mass] MCH [Entitic mass] by Automated count 26.7-34.0 [facility] MCHC Auto (RBC) [Mass/Vol]on 02-09-2024 MCHC (RBC) [Mass/Vol] MCHC [Mass/volume] by Automated count 29.9-35.2 [facility] MCV Auto (RBC) [Entitic vol] on 02-09-2024 MCV (RBC) [Entitic vol] MCV [Entitic volume] by Automated count 81.0-99.0 [facility] Monocytes Auto (Bld) [#/Vol] on 02-09-2024 Monocytes (Bld) [#/Vol] Automated blood monocyte count 0.3-0.8 [facility] Monocytes/100 WBC Auto (Bld) on 02-09-2024 Monocytes/100 WBC (Bld) Automated monocyte % 1.7-12.0 [facility] Neutrophils Auto (Bld) [#/Vo l]on 02-09-2024 Neutrophils (Bld) [#/Vol] Neutrophils [#/volume] in Blood by Automated count 1.4-6.5 [facility] Neutrophils/100 WBC Auto (Bl d)on 02-09-2024 Neutrophils/100 WBC (Bld) Automated neutrophil % 43.0-75.0 [facility] No Panel Informationon 02-08 Eosinophils # (Auto) 0.1 10 3/uL 0.0-0.7 [facility] Folate 21.20 ng/mL 8.60-58.90 [facility] Immature Granulocyte # (Auto) 0.01 10 3/uL 0.00-0.03 [facility] Platelet mean volume Auto (B ld) [Entitic vol]on 02-09-2024 Platelet mean volume (Bld) [Entitic vol] Platelet mean volume [Entitic volume] in Blood by Automated count Low 9.5-13.5 [facility] Platelets Auto (Bld) [#/Vol] on 02-09-2024 Platelets (Bld) [#/Vol] Platelets [#/volume] in Blood by Automated count 150-450 [facility] RBC Auto (Bld) [#/Vol]on RBC (Bld) [#/Vol] Erythrocytes [#/volume] in Blood by Automated count Low 4.20-5.40 [facility] Serum or plasma anion gap de terminationon 02-09-2024 Anion gap [Moles/Vol] Serum or plasma anion gap determination [facility] Estimated glomerular filtrat ion rate (GFR) non- Americanon 12-15-2023 GFR/1.73 sq M.predicted among non-blacks MDRD (S/P/Bld) [Vol rate/Area] Estimated glomerular filtration rate (GFR) non- Low >=60 mL/min/1.73m 2 [facility] Laboratory - Chemistry and C hemistry - challengeon 12-15-2023 Calcium [Mass/Vol] 9.7 mg/dL 8.5-10.1 [facility] Chloride [Moles/Vol] 106 mmol/L 98-107 [facility] CO2 [Moles/Vol] 29.9 mmol/L 21.0-32.0 [facility] Creatinine [Mass/Vol] 1.26 mg/dL High 0.55-1.02 [facility] GFR/1.73 sq M.predicted MDRD (S/P/Bld) [Vol rate/Area] 50 mL/min/{1.73_m2} Low >=60 mL/min/1.73m 2 [facility] Glucose [Mass/Vol] 91 mg/dL 74-106 [facility] Potassium [Moles/Vol] 3.7 mmol/L 3.5-5.1 [facility] Sodium [Moles/Vol] 143 mmol/L 136-145 [facility] Urea nitrogen [Mass/Vol] 21.0 mg/dL High 7.0-18.0 [facility] Urea nitrogen/Creatinine [Mass ratio] 16.7 mg/mg [facility] No Panel Informationon 12-14 25-Hydroxy Vitamin D Total 68.1 ng/mL [facility] Comment on above: <20 ng/mL Vit D defi cient20-<30 ng/mL Vit D eqquzfjepbys63-885 ng/mL Vit D sufficient>100 ng/mL Potential Toxicity Serum or plasma anion gap de terminationon 12-15-2023 Anion gap [Moles/Vol] Serum or plasma anion gap determination [facility] CBC AUTO DIFFon 03-08-2022 BASO # 0.0 103/ul Normal 0.0-0.1 [facility] Comment on above: Performed By: #### C BC ####[facility] [address] [place] [id number]. Tanner [place] Basophils/100 WBC (Bld) 0.7 % Normal 0.2-2.0 [facility] Comment on above: Performed By: #### C BC ####[facility] [address] [place] [address]Dr. Tanner [place] EO # 0.1 103/ul Normal 0.0-0.7 [facility] Comment on above: Performed By: #### C BC ####[facility] [address] [place], [place] [address]Dr. Tanner [place] Eosinophils/100 WBC (Bld) 1.5 % Normal 0.9-7.0 [facility] Comment on above: Performed By: #### C BC ####[facility] [address] [place], [place] [address]Dr. Tanner [place] Erythrocyte distribution width (RBC) [Ratio] 13.2 % Normal 11.0-15.0 [facility] Comment on above: Performed By: #### C BC ####[facility] [address] [place], [place] [address]Dr. Tanner Madison Hematocrit (Bld) [Volume fraction] 34.1 % Critically low 36.0-48.0 [facility] Comment on above: Performed By: #### C BC ####[facility] [address] [place] [id number]. Tanner Madison Hemoglobin (Bld) [Mass/Vol] 11.7 g/dL Critically low 12.0-16.0 [facility] Comment on above: Performed By: #### C BC ####[facility] [address] [place] [id number]. Tanner Madison IG # 0.02 10e3/ul Normal 0.00-0.03 [facility] Comment on above: Performed By: #### C BC ####[facility] [address] [place] [id number]. Tanner Madison IG % 0.4 % Normal 0.0-0.5 [facility] Comment on above: Performed By: #### C BC ####[facility] [address] [place] [address]Dr. Tanner Madison LYMPH # 1.2 103/ul Normal 1.2-3.8 [facility] Comment on above: Performed By: #### C BC ####[facility] [address] [place] [id number]. Tanner Madison Lymphocytes/100 WBC (Bld) 25.6 % Normal 20.5-60.0 [facility] Comment on above: Performed By: #### C BC ####[facility] [address] [place] [id number]. Tanner Madison MANUAL DIFF REQ NO Normal [facility] Comment on above: Performed By: #### C BC ####[facility] [address] [place] [id number]. Tanner Madison MCH (RBC) [Entitic mass] 30.9 pg Normal 26.7-34.0 [facility] Comment on above: Performed By: #### C BC ####[facility] [address] [place] [id number]. Tanner Madison MCHC (RBC) [Mass/Vol] 34.3 g/dL Normal 29.9-35.2 [facility] Comment on above: Performed By: #### C BC ####[facility] [address] [place] [id number]. Tanner Madison MCV (RBC) [Entitic vol] 90.0 fL Normal 81.0-99.0 [facility] Comment on above: Performed By: #### C BC ####[facility] [address] [place] [phone]. Tanner Madison MONO # 0.4 103/ul Normal 0.3-0.8 [facility] Comment on above: Performed By: #### C BC ####[facility] [address] [place], [place] [address]Dr. Tanner Madison Monocytes/100 WBC (Bld) 7.6 % Normal 1.7-12.0 [facility] Comment on above: Performed By: #### C BC ####[facility] [address] [place], [place] [address]Dr. Tanner Madison NEUT # 3.0 103/ul Normal 1.4-6.5 [facility] Comment on above: Performed By: #### C BC ####[facility] [address] [place], [place] [address]Dr. Tanner Madison Neutrophils/100 WBC (Bld) 64.2 % Normal 43.0-75.0 [facility] Comment on above: Performed By: #### C BC ####[facility] [address] [place], [place] [address]Dr. Tanner Madison Platelet mean volume (Bld) [Entitic vol] 8.5 fL Critically low 9.5-13.5 [facility] Comment on above: Performed By: #### C BC ####[facility] [address] [place], [place] [id number]. Tanner Madison PLT 269 103/ul Normal 150-450 [facility] Comment on above: Performed By: #### C BC ####[facility] [address] [place], [place] [id number]. Tanner Madison RBC 3.79 106/ul Critically low 4.20-5.40 [facility] Comment on above: Performed By: #### C BC ####[facility] [address] [place], [place] [address]Dr. Tanner Madison WBC 4.6 103/ul Normal 4.0-11.0 [facility] Comment on above: Performed By: #### C BC ####[facility] [address] [place], [place] [address]WiAryan Madison MG MAMM SCREEN 3D VIJAYA CADon 03-08-2022 MG MAMM SCREEN 3D VIJAYA CAD Patient: KIMBERLY WHITE Exam Date: 03/08/2022 : 1950 Gender:F Ordering : DR KAR MOTA D.O. Admission #: [id number] Family : Order #: [id number] CLICK HERE TO VIEW EXAM RADIOLOGY REPORT [...] MD on 03/08/2022 at 12:18 Normal [facility] PROF CHEM 8 (BAS METB)on Anion gap [Moles/Vol] 11.0 mmol/L Normal Th e [facility] Comment on above: Performed By: #### T SH, BMP #### [facility] [address] [place], [place] [address] Dr. Tanner Madison Calcium [Mass/Vol] 9.5 mg/dL Normal 8.5-10.1 [facility] Comment on above: Performed By: #### T SH, BMP #### [facility] [address] [place] [place] [address] [address] Tanner Madison Chloride [Moles/Vol] 103 mmol/L Normal 98-107 [facility] Comment on above: Performed By: #### T SH, BMP #### [facility] [address] [address] [address] Tanner Madison CO2 [Moles/Vol] 30.1 mmol/L Normal 21.0-32.0 [facility] Comment on above: Performed By: #### T SH, BMP #### [facility] [address] [address] [address] Tanner Madison Creatinine [Mass/Vol] 0.98 mg/dL Normal 0.55-1.02 [facility] Comment on above: Performed By: #### T SH, BMP #### [facility] [address] [address] [address] Tanner Madison EGFR-AF PRYDEINIG >60 Normal >=60 [facility] Comment on above: Performed By: #### T SH, BMP #### [facility] [address] [address] [address] Tanner Madison EGFR-NON AF PRYDEINIG 56 mL/min/1.73m2 Critically low >=60 [facility] Comment on above: Performed By: #### T SH, BMP #### [facility] [address] [address] [address] Tanner Madison Glucose [Mass/Vol] 91 mg/dL Normal 74-[address] [facility] Comment on above: Performed By: #### T SH, BMP #### [facility] [address] [address] [address] Tanner Madison Potassium [Moles/Vol] 4.1 mmol/L Normal 3.5-5.1 [facility] Comment on above: Performed By: #### T SH, BMP #### [facility] [address] [address] [address] Tanner Madison Sodium [Moles/Vol] 140 mmol/L Normal 136-145 [facility] Comment on above: Performed By: #### T SH, BMP #### [facility] [address] [address] [address] Tanner Madison Urea nitrogen [Mass/Vol] 14.0 mg/dL Normal 7.0-18.0 [facility] Comment on above: Performed By: #### T SH, BMP #### [facility] [address] [address] [address] Tanner Madison Urea nitrogen/Creatinine [Mass ratio] 14.3 mg/mg Normal [facility] Comment on above: Performed By: #### T TYRA, BMP #### [facility] [address] [place] [address] Dr. Tanner Madison TSHon 03-08-2022 TSH 2.659 uIU/mL Normal 0.358-3.740 [facility] Comment on above: Performed By: #### T TYRA, BMP #### [facility] [address] [place] [address] Dr. Tanner Madison VITAMIN D 25 OHon 03-08-2022 VIT D 25-OH 63.4 ng/mL Normal [facility] Comment on above: Performed By: #### V ITAD ####[facility] [address] [place] [address]Dr. Tanner Madison VIT D RANGES SEE BELOW Normal [facility] Comment on above: Result Comment: <20 ng/mL Vit D deficient 20 - <30 ng/mL Vit D insufficient 30 - 100 ng/mL Vit D sufficient >100 ng/mL Potential Toxicity Performed By: #### V ITAD ####[facility] [address] [place] [id number]. Tanner Madison XR DEXA BONE DENSITYon 03-08 [...] by: MARTA ELIAS Date: 2022-03-08 10:52 Normal [facility] 11-16-2021 [facility] Telephone (NIQ) KIMBERLY WHITE ([id number]) 1950 F Date Time Provider Department 11/16/21 [...] Status:Closed by RAYSA RICO on 11/23/21 Normal [facility] MRI LSPINE WO CONon 11-05-19 [...] by: MARTA ELIAS Date: 2021-11-04 06:33 Normal [facility] MRI TSPINE WO CONon 11-04-19 MRI TSPINE WO CON EXAMINATION: MRI TSPINE WO CON [...] D deficiency has been defined by the [employer] and an Endocrine Society practice guideline as a level of serum 25-OH vitamin D less than 20 ng/mL (1,2). The Endocrine Society went on to further define vitamin D insufficiency as a level between 21 and 29 ng/mL (2). 1. IOM ([employer] of [employer]). 2010. Dietary reference intakes for calcium and D. [place]: The National Academies Press. 2. Mikal MF, Jayy NC, Felisa-Ras MACHADO, et al. Evaluation, treatment, and prevention of vitamin D deficiency: an Endocrine Society clinical practice guideline. JCEM. 2010; 96(7):1911-30. Performed By: #### V ITADLC #### [facility] [address] [place] [address] Dr. Tanner Madison CBC AUTO DIFFon 10-28-2021 BASO # 0.0 103/ul Normal 0.0-0.1 [facility] Comment on above: Performed By: #### C BC #### [facility] [address] [address] [address] Tanner Madison Basophils/100 WBC (Bld) 0.6 % Normal 0.2-2.0 [facility] Comment on above: Performed By: #### C BC #### [facility] [address] [address] [address] Tanner Madison EO # 0.1 103/ul Normal 0.0-0.7 [facility] Comment on above: Performed By: #### C BC #### [facility] [address] [place] [address] Dr. Tanner Madison Eosinophils/100 WBC (Bld) 1.1 % Normal 0.9-7.0 [facility] Comment on above: Performed By: #### C BC #### [facility] [address] [place] [address] Dr. Tanner Madison Erythrocyte distribution width (RBC) [Ratio] 13.5 % Normal 11.0-15.0 [facility] Comment on above: Performed By: #### C BC #### [facility] [address] [place] [address] Dr. Tanner Madison Hematocrit (Bld) [Volume fraction] 31.7 % Critically low 36.0-48.0 [facility] Comment on above: Performed By: #### C BC #### [facility] [address] [place] [address] Dr. Tanner Madison Hemoglobin (Bld) [Mass/Vol] 10.8 g/dL Critically low 12.0-16.0 [facility] Comment on above: Performed By: #### C BC #### [facility] [address] [place] [address] Dr. Tanner Madison IG # 0.01 10e3/ul Normal 0.00-0.03 [facility] Comment on above: Performed By: #### C BC #### [facility] [address] [place] [address] Dr. Tanner Madison IG % 0.2 % Normal 0.0-0.5 [facility] Comment on above: Performed By: #### C BC #### [facility] [address] [place] [address] Dr. Tanner Madison LYMPH # 1.3 103/ul Normal 1.2-3.8 [facility] Comment on above: Performed By: #### C BC #### [facility] [address] [place] [address] Dr. Tanner Madison Lymphocytes/100 WBC (Bld) 24.0 % Normal 20.5-60.0 [facility] Comment on above: Performed By: #### C BC #### [facility] [address] [place] [address] Dr. Tanner Madsion MANUAL DIFF REQ NO Normal [facility] Comment on above: Performed By: #### C BC #### [facility] [address] [place] [address] Dr. Tanner Madison MCH (RBC) [Entitic mass] 31.0 pg Normal 26.7-34.0 [facility] Comment on above: Performed By: #### C BC #### [facility] [address] [place] [address] Dr. Tanner Madison MCHC (RBC) [Mass/Vol] 34.1 g/dL Normal 29.9-35.2 [facility] Comment on above: Performed By: #### C BC #### [facility] [address] [place] [address] Dr. Tanner Madison MCV (RBC) [Entitic vol] 91.1 fL Normal 81.0-99.0 [facility] Comment on above: Performed By: #### C BC #### [facility] [address] [place] [address] Dr. Tanner Madison MONO # 0.5 103/ul Normal 0.3-0.8 [facility] Comment on above: Performed By: #### C BC #### [facility] [address] [place] [address] Dr. Tanner Madison Monocytes/100 WBC (Bld) 8.3 % Normal 1.7-12.0 [facility] Comment on above: Performed By: #### C BC #### [facility] [address] [place] [address] Dr. Tanner Madison NEUT # 3.6 103/ul Normal 1.4-6.5 [facility] Comment on above: Performed By: #### C BC #### [facility] [address] [place] [address] Dr. Tanner Madison Neutrophils/100 WBC (Bld) 65.8 % Normal 43.0-75.0 [facility] Comment on above: Performed By: #### C BC #### [facility] [address] [address] [address] Tanner Madison Platelet mean volume (Bld) [Entitic vol] 8.6 fL Critically low 9.5-13.5 [facility] Comment on above: Performed By: #### C BC #### [facility] [address] [place] [address] [address] Tanner Madison PLT 234 103/ul Normal 150-450 [facility] Comment on above: Performed By: #### C BC #### [facility] [address] [address] [address] Tanner Madison RBC 3.48 106/ul Critically low 4.20-5.40 [facility] Comment on above: Performed By: #### C BC #### [facility] [address] [place] [address] [address] Tanner Madison WBC 5.4 103/ul Normal 4.0-11.0 [facility] Comment on above: Performed By: #### C BC #### [facility] [address] [place] [address] [address] Tanner Madison PROF CHEM 8 (BAS METB)on Anion gap [Moles/Vol] 12.7 mmol/L Normal [facility] Comment on above: Performed By: #### B MP ####[facility] [address] [place] [address]DrAryan Madison Calcium [Mass/Vol] 9.2 mg/dL Normal 8.5-10.1 [facility] Comment on above: Performed By: #### B MP ####[facility] [address] [place] [id number]. Tanner Madison Chloride [Moles/Vol] 102 mmol/L Normal 98-107 [facility] Comment on above: Performed By: #### B MP ####[facility] [address] [place] [address]Dr. Tanner Madison CO2 [Moles/Vol] 30.4 mmol/L Normal 21.0-32.0 [facility] Comment on above: Performed By: #### B MP ####[facility] [address] [place] [address]Dr. Tanner Madison Creatinine [Mass/Vol] 1.07 mg/dL Critically high 0.55-1.02 [facility] Comment on above: Performed By: #### B MP ####[facility] [address] [place] [address]Dr. Tanner Los EGFR-AF PRYDEINIG >60 Normal >=60 The [facility] Comment on above: Performed By: #### B MP ####[facility] [address] [place] [address]Dr. Tanner Los EGFR-NON AF PRYDEINIG 50 mL/min/1.73m2 Critically low >=60 [facility] Comment on above: Performed By: #### B MP ####[facility] [address] [place] [address]Dr. Virginiasunita Los Glucose [Mass/Vol] 99 mg/dL Normal 74-106 [facility] Comment on above: Performed By: #### B MP ####[facility] [address] [place] [address]Dr. Tanner Los Potassium [Moles/Vol] 4.1 mmol/L Normal 3.5-5.1 [facility] Comment on above: Performed By: #### B MP ####[facility] [address] [place] [address]Dr. Virginiasunita Los Sodium [Moles/Vol] 141 mmol/L Normal 136-[address] [facility] Comment on above: Performed By: #### B MP ####[facility] [address] [place] [address]Dr. Tanner Madison Urea nitrogen [Mass/Vol] 16.0 mg/dL Normal 7.0-18.0 [facility] Comment on above: Performed By: #### B MP ####[facility] [address] [place] [address]Dr. Tanner Madison Urea nitrogen/Creatinine [Mass ratio] 15.0 mg/mg Normal [facility] Comment on above: Performed By: #### B MP ####[facility] [address] [place], [place] [address]Xv. Tanner Madison LASHELLPATTIEcedric 10-15-2021 CNOV Office Visit (SPNMMN) KIMBERLY WHITE ([id number]) 1950 F Date Time Provider Department 10/15/21 2:00 PM ANCELMO SANDOVAL SPINMN During your visit today, we recorded the [...] record or letter via US mail. SUBJECTIVE Kimberly White is a 70 year old female [...] short period (more content not included)... Normal [facility] XR SCOLIOSIS 2V PA STAND/LAT [...] abnormality. IMPRESSION: Thoracolumbar scoliosis and degenerative changes. 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 Transcribe Date/Time: Oct 15 2021 2:52P Dictated by : CHETNA HERNANDEZ MD This examination was interpreted and the report reviewed and electronically signed by: CHETNA HERNANDEZ MD on Oct 15 2021 2:54PM EST [id number] CN Normal [facility] XR SCOLIOSIS PA STAND/LAT 2V on 10-15-2021 [facility] 08-27-2021 L Specimen: [id number] Received: 08/27/21 Status: VINOD Norristevin Num: [id number] Spec Type: Surgical Subm Dr: Will Ma MD Tissues: A Gastric Biopsy (GASTRIC BXS) Procedures: HE Stain/2, Gross/Micro L4 Patient Age/Sex Location Account Attending Physician Kimberly White 70/F [id number] Will Ma MD SPEC NUM: [id number] RECD: 08/27/21 STATUS: VINOD NORRISTevin NUM: [id number] JHONNY: 08/27/21- [facility] DR: Will Ma MD ENTERED: 08/27/21 ARABELLA MENDOZA: SPEC TYPE: Surgical DEPT: S ORDERED: HE Stain/2, [...] Entirely submitted in one cassette labeled A1. (/YJ) Microscopic Description Two glass slides with H E stained material have been examined. The microscopic findings support the above pathologic diagnosis. [id number] Specimen: [id number] Received: 08/27/21 Status: VINOD Garcia Num: [id number] Spec Type: Surgical Subm Dr: Will Ma MD Tissues: A Gastric Biopsy (GASTRIC BXS) Procedures: HE Stain/2, Gross/Micro L4 Patient: ChristopherDevils Elbow L [id number] (Continued) Signed (signature on file) Nisreen Marquez MD 08/31/21 1659 Normal [facility] SARS-CoV-2 (COVID-19) RNA JEFFRY+probe Ql (Unsp spec) Negative Normal Negative [facility] Comment on above: Order Comment: Healt hcare Worker?: N Result Comment: Testing for SARS-CoV-2 by RT-PCR This test was developed and its performance characteristics determined by [employer] ([employer]) and validated at the [facility]. This test has not been FDA [...] is terminated or revoked sooner. PERFORMED BY: [address] [place] [id number] PATHOLOGIST [employer] NISREEN MARQUEZ M.D. Performed By: #### C OVID 19 [facility] #### [address] Vital Signs Date Time Vital Sign Value Performing Clinician Facility 09-16-2024 09:23-0400 Body height 160.02 cm Kar Ball DO Work Phone: [facility] 09-16-2024 09:23-0400 Body mass index (BMI) [Ratio] 19 kg/m2 Kar Ball DO Work Phone: [facility] 09-16-2024 09:23-0400 Body weight 48.7 kg Kar Ball DO Work Phone: [facility] 09-16-2024 09:23-0400 Diastolic blood pressure 68 mm[Hg] Kar Ball DO Work Phone: [facility] 09-16-2024 09:23-0400 Heart rate 71 /min Kar Ball DO Work Phone: [facility] 09-16-2024 09:23-0400 Respiratory rate 12 /min Kar Ball DO Work Phone: [facility] 09-16-2024 09:23-0400 Systolic blood pressure 139 mm[Hg] Kar Ball DO Work Phone: [facility] 05-08-2024 08:59-0400 Body height 160.02 cm [facility] 05-08-2024 08:59-0400 Body mass index (BMI) [Ratio] 20.2 kg/m2 [facility] 05-08-2024 08:59-0400 Body weight 51.93 kg [facility] 05-08-2024 08:59-0400 Diastolic blood pressure 89 mm[Hg] [facility] 05-08-2024 08:59-0400 Heart rate 70 /min [facility] 05-08-2024 08:59-0400 Respiratory rate 12 /min [facility] 05-08-2024 08:59-0400 Systolic blood pressure 139 mm[Hg] [facility] 08-03-2023 10:08-0400 Body height 160.02 cm [facility] 08-03-2023 10:08-0400 Body mass index (BMI) [Ratio] 19.7 kg/m2 [facility] 08-03-2023 10:08-0400 Body weight 50.57 kg [facility] 08-03-2023 10:08-0400 Diastolic blood pressure 81 mm[Hg] [facility] 08-03-2023 10:08-0400 Heart rate 70 /min [facility] 08-03-2023 10:08-0400 Respiratory rate 12 /min [facility] 08-03-2023 10:08-0400 Systolic blood pressure 150 mm[Hg] [facility] 09-26-2022 10:30-0400 Body height 160.02 cm Kar Ball Other [facility] [employer] Other 09-26-2022 10:30-0400 Body mass index (BMI) [Ratio] 19.31 kg/m2 Kar Ball Other [facility] [employer] Other 09-26-2022 10:30-0400 Body weight 49.44 kg Kar Ball Other [facility] [employer] Other 09-26-2022 10:30-0400 Diastolic blood pressure 75 mm[Hg] Kar Ball Other [facility] [employer] Other 09-26-2022 10:30-0400 Respiratory rate 12 /min Kar Ball Other [facility] [employer] Other 09-26-2022 10:30-0400 Systolic blood pressure 166 mm[Hg] Kar Ball Other [facility] [employer] Other 02-01-2022 10:22-0500 Body height 160 cm Jos eA Hong MD Work Phone: [facility] 02-01-2022 10:22-0500 Body weight 49.9 kg Jose A Hong MD Work Phone: [facility] 02-01-2022 10:22-0500 Diastolic blood pressure 76 mm[Hg] Jose A Hong MD Work Phone: [facility] 02-01-2022 10:22-0500 Heart rate 71 /min Jose A Hong MD Work Phone: [facility] 02-01-2022 10:22-0500 Respiratory rate 14 /min Jose A Hong MD Work Phone: [facility] 02-01-2022 10:22-0500 SaO2% (BldA) [Mass fraction] 98 % Jose A Hong MD Work Phone: [facility] 02-01-2022 10:22-0500 Systolic blood pressure 168 mm[Hg] Jose A Hong MD Work Phone: [facility] Encounters Encounter Date Encounter Type Care Provider Facility Start: 09-16-2024 End: 09-16-2024 ambulatory Kar Mota DO Work Phone: [facility] Work Phone: Start: 09-16-2024 End: 09-16-2024 Patient encounter procedure Kar Mota DO -[facility] Work Phone: Start: 08-12-2024 End: 08-12-2024 Patient encounter procedure Kar Mota DO -[facility] Work Phone: Start: 07-11-2024 End: 07-11-[address] [facility] Work Phone: Start: 07-11-2024 End: 07-11-2024 Patient encounter procedure [facility] Work Phone: Start: 06-07-2024 End: 06-07-[address] [facility] Work Phone: Start: 06-07-2024 End: 06-07-2024 Patient encounter procedure [facility] Work Phone: Start: 05-08-2024 End: 05-08-[address] [facility] Work Phone: Start: 05-08-2024 End: 05-08-2024 Patient encounter procedure [facility] Work Phone: Start: 05-03-2024 Non-patient / Non-visit [facility] Work Phone: Start: 04-08-2024 End: 04-08-[address] [facility] Work Phone: Start: 04-08-2024 End: 04-08-2024 Patient encounter procedure [facility] Work Phone: Start: 03-07-2024 End: 03-07-[address] [facility] Work Phone: Start: 03-07-2024 End: 03-07-2024 Patient encounter procedure [facility] Work Phone: Start: 02-29-2024 End: 02-29-[address] [facility] Work Phone: Start: 02-29-2024 End: 02-29-2024 Patient encounter procedure [facility] Work Phone: Start: 02-22-2024 End: 02-22-2024 Patient encounter procedure [facility] Work Phone: Start: 02-19-2024 End: 02-19-2024 ambulatory Clifton Matthews MD Facility: [facility] Start: 02-15-2024 End: 02-15-2024 Patient encounter procedure [facility] Work Phone: Start: 02-09-2024 Non-patient / Non-visit [facility] Work Phone: Start: 12-15-2023 Non-patient / Non-visit [facility] Work Phone: Start: 11-16-2023 End: 11-16-[address] [facility] Work Phone: Start: 11-16-2023 End: 11-16-2023 Patient encounter procedure [facility] Work Phone: Start: 08-03-2023 End: 08-03-[address] [facility] Work Phone: Start: 08-03-2023 End: 08-03-2023 Patient encounter procedure [facility] Work Phone: Start: 07-19-2023 Non-patient / Non-visit [facility] Work Phone: Start: 03-27-2023 End: 03-27-2023 ambulatory Kar Mota Other [employer] Other Start: 03-27-2023 Office outpatient vi sit 15 minutes Kar Mota [facility] Start: 03-27-2023 Telephone encounter Kar Mota [facility] Start: 01-23-2023 End: 01-23-2023 ambulatory Kra Mota Other [employer] Other Start: 01-23-2023 Telephone encounter Kar Mota [facility] Start: 11-29-2022 End: 11-29-2022 ambulatory Kar Mota Other [employer] Other Start: 11-29-2022 Telephone encounter Kar Ball [facility] Start: 11-28-2022 End: 11-28-2022 ambulatory Kar Ball Other [employer] Other Start: 11-28-2022 Nursing evaluation o f patient and report Kar Mota [facility] Start: 11-28-2022 Telephone encounter Kar Ball [facility] Start: 10-04-2022 End: 10-04-2022 ambulatory Kar Ball Other [employer] Other Start: 10-04-2022 Telephone encounter Kar Ball [facility] Start: 09-26-2022 End: 09-26-2022 ambulatory Kar Mota Other [employer] Other Start: 09-26-2022 Office outpatient vi sit 15 minutes Kar Mota [facility] Start: 07-14-[address] KATHRINE MARCIAL Facil ity:[facility]1 Start: 05-02-2022 End: 05-03-[address] KATHRINE MARCIAL Facility:[facility] Start: 03-08-2022 End: 03-09-[address] KATHRINE MARCIAL Facility:[facility] Start: 03-02-2022 End: 03-03-[address] KATHRINE MARCIAL Facility:[facility] Start: 02-15-2022 Adult health examination Chris Mota Other [employer] Other Start: 02-01-2022 End: 02-01-2022 ambulatory ANCELMO SANDOVAL Facility:[facility] Start: 02-01-2022 End: 02-01-2022 Patient encounter procedure Jose A Hong MD Work Phone: [employer] [employer] Comment on above: Encounter for screen ing for osteoporosis (Primary Dx) Start: 01-18-2022 End: 01-19-[address] KATHRINE MARCIAL Facility:[facility] Start: 12-21-2021 End: 12-22-[address] KATHRINE MARCIAL Facility:[facility] Start: 11-30-2021 End: 12-01-2021 ambulatory [...] Start: 10-15-2021 End: 10-15-2021 ambulatory ANCELMO SANDOVAL Facility:[facility] Start: 10-15-2021 End: 10-15-2021 Subsequent hospital visit by physician Xr Main Q[facility] Radiology Comment on above: Scoliosis of thoraco lumbar spine, unspecified scoliosis type [M41.9] Procedures Date Procedure Procedure Detail Performing Clinician Start: 10-15-2021 Radex entir thrc lmb r crv sac spi w/skull 2/3 vw Ancelmo Manasa PORRAS Work Phone: Start: 07-07-2016 Screening for malign ant neoplasm of colon Kar Mota Other Depression screening Benjami n Lashae Other Screening for malign ant neoplasm of breast Kar Mota Other Plan of Treatment Date Care Activity Detail Author Start: 02-27-2022 ADVANCE DIRECTIVE DISCUSSION ADVANCE DIRECTIVE DISCUSSION [facility] Start: 02-27-2022 DEPRESSION ASSESSMENT DEPRESSION ASS ESSMENT [facility] Start: 10-28-2021 Influenza vaccination INFLUENZA (#1) [facility] Start: 07-25-2021 COVID-19 VACCINE (5 - Booster for Pfizer series) COVID-19 VACCINE (5 - Booster for Pfizer series) [facility] Start: 02-27-2021 ADVANCE DIRECTIVE DISCUSSION ADVANCE DIRECTIVE DISCUSSION [facility] Start: 02-27-2021 DEPRESSION ASSESSMENT DEPRESSION ASS ESSMENT [facility] Start: 2013 BONE DENSITY BONE DENSITY [facility] Start: 2013 PNEUMOCOCCAL: 65+ (1 - PCV) PNEUMOCOCCAL: 65+ (1 - PCV) [facility] Start: 1998 SHINGRIX VACCINE (1 of 2) SHINGRIX VACCINE (1 of 2) [facility] Start: 1993 COLOGUARD (FIT-DNA) COLOGUARD (FIT-D NA) [facility] Start: 1993 Colonoscopy COLONOSCOPY [facility] Start: 1993 COLORECTAL CANCER SCREENING COLORECTAL CANCER SCREENING [facility] Start: [address] COLONOGRAPHY [facility] Start: 1993 DIABETES SCREEN DIABETES SCREEN [facility] Start: 1993 FECAL OCCULT BLOOD FECAL OCCULT BLOO D [facility] Start: 1993 LIPID SCREEN LIPID SCREEN [facility] Start: 1993 SIGMOIDOSCOPY SIGMOIDOSCOPY [facility] Start: 1988 Mammography MAMMOGRAM [facility] Start: 11-13-1967 Urine microalbumin profile DTAP,TDAP,TD (1 - Tdap) [facility] Start: 1966 HEPATITIS C SCREENING HEPATITIS C SC CIERA [facility] Start: 1960 Adult depression screening assessment DEPRESSION SCREENING [facility] Comprehensive metabo lic 1999 panel - Serum or Plasma [facility] Comprehensive metabo lic 1999 panel - Serum or Plasma [facility] DXA Skeletal system.axial Views for bone density [facility] End: 03-03-2023 DXA-AXIAL SKELETON DXA-AXIAL SKELETON Radiology Routine Encounter for screening for osteoporosis 1 Occurrences starting 02/01/2022 until 03/03/2023 [facility] Work Phone: Comment on above: 1 Occurrences starti ng 02/01/2022 until 03/03/2023 MG Breast - bilatera l Screening [facility] Immunizations Immunization Date Immunization Notes Care Provider Fa cility 11-16-2023 influenza, high dose seasonal, preservative-free [facility] 11-16-2023 influenza, live, intranasal, quadrivalent [facility] 11-28-2022 influenza virus vaccine, unspecified formulation [facility] 11-28-2022 influenza, high dose seasonal, preservative-free Kar Mota Other [employer] [facility] [employer] Other 11-26-2021 influenza virus vaccine, split virus (incl. purified surface antigen) Kar Mota Other [employer] [facility] [employer] Other 11-26-2021 influenza virus vaccine, unspecified formulation [facility] 05-30-2021 COVID-19 Vaccine Pfi zer - Documentation Purposes Only Kar Mota Other [facility] 12-04-2020 influenza virus vaccine, split virus (incl. purified surface antigen) Kar Mota Other [employer] [facility] [employer] Other 12-04-2020 influenza virus vaccine, unspecified formulation [facility] 11-22-2020 COVID-19 Vaccine Pfi zer - Documentation Purposes Only Kar Lashae Other [facility] 04-18-2020 COVID-19 Vaccine Pfi zer - Documentation Purposes Only Kar Lashae Other [facility] 03-28-2020 COVID-19 mRNA, Comirnaty (Pfizer) [facility] 03-28-2020 COVID-19 Vaccine Moderna - Documentation Purposes Only Kar Lashae Other [facility] 11-07-2019 influenza virus vaccine, split virus (incl. purified surface antigen) Kar Lashae Other [employer] Other 11-07-2019 influenza virus vaccine, unspecified formulation [facility] 11-26-2018 influenza virus vaccine, split virus (incl. purified surface antigen) Kar Lashae Other [employer] Other 11-26-2018 influenza virus vaccine, unspecified formulation [facility] 12-07-2017 influenza virus vaccine, split virus (incl. purified surface antigen) Kar Lashae Other [employer] Other 12-07-2017 influenza virus vaccine, unspecified formulation [facility] 12-19-2016 influenza virus vaccine, split virus (incl. purified surface antigen) Kar Lashae Other [employer] Other 12-19-2016 influenza virus vaccine, unspecified formulation [facility] 12-01-2015 influenza virus vaccine, split virus (incl. purified surface antigen) Kar Mota Other [employer] Other 12-01-2015 influenza virus vaccine, unspecified formulation [facility] 05-15-2015 pneumococcal conjuga te vaccine, 13 valent Kar Mota Other [facility] 12-10-2014 influenza virus vaccine, split virus (incl. purified surface antigen) Kar Mota Other [employer] Other 12-10-2014 influenza virus vaccine, unspecified formulation [facility] 12-18-2013 tetanus and diphther ia toxoids, adsorbed, preservative free, for adult use (5 Lf of tetanus toxoid and 2 Lf of diphtheria toxoid) Kar Mota Other [facility] 2013 pneumococcal polysaccharide vaccine, 23 valent Kar Mota Other [facility] 12-17-2012 tetanus and diphther ia toxoids, adsorbed, preservative free, for adult use (5 Lf of tetanus toxoid and 2 Lf of diphtheria toxoid) Kar Mota Other [facility] Payers Date Payer Category Payer Private Health Insurance 2017 Medicare HU[employer]NA MEDICARE HU[employer]NA MEDICARE PPO [id number] 2017-Present [phone] [place] [address] PPO [id number] 1959 Medicare [id number] 1948 Unknown [id number] .59 1948 Unknown [id number] [id number] .59 1948 Unknown [id number] [id number] .59 1948 Unknown [id number] [id number] .59 1948 Unknown [id number] [id number] .59 1948 Unknown [id number] [id number] .59 1948 Unknown [id number] 2.16.840.1.369181.3.579.2 .59 1948 Unknown [id number] 2.16.840.1.425805.3.579.2 .593 1948 Unknown [id number] [id number] .593 1948 Unknown [id number] 2.16.840.1.978652.3.579.2 .593 1948 Unknown [id number] 2.16.840.1.254675.3.579.2 .593 1948 Unknown [id number] [id number] .196 Self-pay Self Pay [id number] Social History Date Type Detail Facility Start: 08-27-2021 End: 10-15-2021 Tobacco smoking status NHIS Ex-smoker [facility] History of tobacco use Current smoker [facility] History of tobacco use Cigarette Smoker [facility] Start: 10-15-2021 Tobacco use and exposure Smokeless tobacco non-user [facility] Start: 10-15-2021 End: 02-01-2022 Alcohol intake Lifetime non-drinker (finding) [facility] Start: 1950 Sex Assigned At Not on file C [facility] Start: 10-05-2021 End: 10-15-2021 Exposure to SARS-CoV-2 (event) Not sure [facility] Sex Assigned At Sex Assigned At [facility] [employer] Other Start: 1950 Sex Assigned At Female F [facility] Start: 02-29-2024 End: 07-11-2024 Sex Female (finding) [facility] Clinical Notes 10-15-2021 to 05-08-2024 Note Date & Type Note Facility 05-08-2024 Evaluation note Diagnosis Onset Date Resolution Carpal tunnel syndrome on both sides acute May 08, 2024 8:54am Chronic kidney disease acute [facility] 2024 8:54am Elevated BP without diagnosis of hypertension acute May 08, 2024 8:54am VALDEZ (generalized anxiety disorder) acute May 08, 2024 8:54am GERD (gastroesophageal reflux disease) acute May 08, 2024 8:54am 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 April 8:54am Pernicious anemia acute April 272024 8:54am [facility] Work Phone: [phone]) 942-871303-12-2025 Evaluation note* Diagnosis Onset Date Resolution Status Admit Date Carpal tunnel syndrome on alberto th sides acute May 08, 2024 8:54am Chronic kidney disease acute Ma [facility] 2024 8:54am Elevated BP without diagnosi s of hypertension acute May 08, 2024 8:54am VALDEZ (generalized anxiety disorder) acute May 08, 2024 8:54am GERD (gastroesophageal reflu x disease) acute May 08, 2024 8:54am 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 April 8:54am Pernicious anemia acute April 272024 8:54am Pernicious anemia acute May 282024 8:51am [facility] Work Phone: [phone] 440-146101-29-2024 Evaluation note* Encounter Date Diagnosis Assessment Notes Treatment Notes Treatment Clinical Notes Feb, Acute bronchitis due to other [...] increased frequency > 3/24 hours and watery [employer] Other 11-27-2023 Evaluation note* Encounter Date Diagnosis Assessment Notes Treatment Notes Treatment Clinical Notes Dec, Pain in thoracic spine (ICD-10 - M54.6) [employer] Other 10-02-2023 Evaluation note* Encounter Date Diagnosis Assessment Notes Treatment Notes Treatment Clinical Notes Nov, Lumbar spondylosis (ICD-10 - M47.816) [employer] Other 07-31-2023 Evaluation note* Encounter Date Diagnosis [...] but may cause increased bloating. [employer] Other 07-31-2023 Evaluation note* Encounter Date Diagnosis [...] but may cause increased bloating. [employer] Other 12-06-2022 NoteHNO ID: [id number] Author: Jose A Hong MD Service: ? Author Type: Physician Type: Progress Notes Filed: 03/07/2022 5:40 AM Note Text: SPINE SURGERY NEW PATIENT PCP: No primary care provider on file. REFERRING PROVIDER: Ancelmo Sandoval PA-C SUBJECTIVE HISTORY OF PRESENT ILLNESS: Kimberly White is a 71 year old female [...] information obtained and documented by the physician marketing assistant retail division. I examined the patient and evaluated all available films and pertinent documents. We discussed the case and I agree with the plans as outlined in this note. As above, Kimberly White is a 71 year old female [...] when sitting. No partha (more content not included)...[facility]12-06-2022 Instructions* Patient Instructions* Ancelmo Sandoval [...] your usual activities immediately. [facility] History of Present illness Narrative* Jose A Hong MD - 02/01/2022 10:50 AM EST SPINE SURGERY NEW PATIENT PCP: No primary care provider on file. REFERRING PROVIDER: Ancelmo Sandoval PA-C SUBJECTIVE HISTORY OF PRESENT ILLNESS: Kimberly White is a 71 year old female [...] information obtained and documented by the physician marketing assistant retail division. I examined the patient and evaluated all available films and pertinent documents. We discussed the case and I agree withthe plans as outlined in this note. As above, Kimberly White is a 71 year old female [...] By signing my name below, I, Melba Gagewal, attest that this documentation has been prepared under the direction and in the presence of Jose A Hong MD. Electronically Signed:musa Orozco, January 31, 2022 9:13 PM I agree with the Chief Complaint, ROS, and Past Histories independently gathered by the clinical manager decision support and the remaining scribed note accurately describes my personal service to the patient. Jose A Hong MD documented [facility] NoteCONSULTATION CONSULTATION DATE: 01/18/2022 CHIEF COMPLAINT: [...] appointment to see a [facility] at [facility] in the near future. PHYSICAL EXAM: [...] We shall await the patient's evaluation with [facility]. Subsequent to that, we will make [...] February, given her 's illness.[facility] [id number] Note CONSULTATION PROCEDURE DATE: 12/21/2021 CHIEF COMPLAINT: [...] well to this treatment. [facility] [id number] NoteCONSULTATION CONSULTATION DATE: 11/30/2021 CHIEF COMPLAINT: Low [...] annually. The patient has been seen by [facility] with regards to the possibility of surgical [...] was encouraged to maintain the communication with [facility] to see whether other options are available. We will repeat the testosterone cypionate on her return visit. The patient understands and would like to proceed. CC: Kathrine Marcial M.D.[facility] [id number] NoteCONSULTATION PROCEDURE DATE: 11/23/2021 PREOPERATIVE DIAGNOSIS: Lumbar [...] attain a neutral posture laterally.[facility] [id number] NoteCONSULTATION CONSULTATION DATE: 11/23/2021 CHIEF COMPLAINT: Left leg pain, low back pain. HISTORY OF PRESENT ILLNESS: This is a very pleasant, 71-year-old female who is known to the [facility]. The patient has an MRI of her lumbar spine, CT of the thoracic and CT of the lumbar spine. The patient has severe rotoscoliosis. The patient was seen at the [facility]. The patient states she is functioning well; [...] understands and would like to proceed. CC: Kathrine Marcial M.D.[facility] [id number] Miscellaneous Notes* Telephone Encounter - Cesilia Adler - 11/16/2021 1:46 PM EDT Received the following record(s) via fax. -MRI tspine wo(report) Date 11/03/21 Record(s) scanned into pt's chart. Cesilia Adler Images requested documented in this encounterMer[facility]09-07-2022 NotePROCEDURE: CT TSPINE WO CON, CT [...] Electronically authenticated by: JEFF FREGOSO Date: 2021-11-03 18:57[facility]09-07-2022 NotePROCEDURE: CT TSPINE WO CON, [...] Electronically authenticated by: JEFF FREGOSO Date: 2021-11-03 18:57[facility]08-19-2022 NoteHNO ID: [id number] Author: Ancelmo Sandoval PA-C Service: ? Author Type: Physician Insulation Power Unit Tender Type: Progress Notes Filed: 10/18/2021 8:52 [...] record or letter via [place] mail. SUBJECTIVE Kimberly White is a 70 year old female [...] neuromuscular referral to (more content not included)... [facility] note* Diagnosis Scoliosis of thoracolumbar spine, unspecified scoliosis type documented in this encounter [facility] note* Diagnosis Encounter for screening for osteoporosis- Primary Special screening for osteoporosis documented in this encounter [facility] noteNo InformationNort [employer] Other Evaluation note* Diagnosis Onset Date Resolution Status Chronic kidney disease acute Elevated BP without diagnosis of hypertension acute VALDEZ (generalized anxiety disorder) acute GERD (gastroesophageal reflux disease) acute 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 Medicare annual wellness visit, subsequent noneactive Screening mammogram for breast cancer noneactive [facility] Work Phone: Evaluation noteNo assessment information available [facility] Work Phone: Evaluwxqzk note* Diagnosis Onset Date Resolution Status Admit Date Carpal tunnel syndrome on alberto th sides acute May 08, 2024 8:54am Chronic kidney disease acute [facility]2024 8:54am Elevated BP without diagnosi s of hypertension acute May 08, 2024 8:54am VALDEZ (generalized anxiety disorder) acute May 08, 2024 8:54am GERD (gastroesophageal reflu x disease) acute May 08, 2024 8:54am 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 April 8:54am Pernicious anemia acute April 272024 8:54am [facility] Work Phone: Evaluation note* Diagnosis Onset Date Resolution Status Admit Date Carpal tunnel syndrome on alberto th sides acute September 16, 2024 8:54am Chronic kidney disease acute 2024 8:54am VALDEZ (generalized anxiety disorder) acute September 16, 2024 8:54am GERD (gastroesophageal reflu x disease) acute September 16, 2024 8:54am Hypertension acute September 16, 8:54am 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 September 16, 2024 8:54am Osteoporosis acute September 16 8:54am Pernicious anemia acute September 162024 8:54am Medicare annual wellness vis it, subsequent noneactive September 16, 2024 8:54am Screening mammogram for dagoberto [facility] cancer noneactive September 16, 2024 8:54am [facility] Work Phone: History general Narrative - Reported* [...] Colonoscopy 2021 Hospitalization History SEE SURGICAL HX [employer] Other Reason for referral (narrative)* Diagnostic Procedure Only (Routine) - Closed Specialty Diagnoses / Procedures Referred By Mouna mclean Referred To Contact XR IMAGING Diagnoses Scoliosis of thoracolumbar spine, unspecified scoliosis type Procedures XR SCOLIOSIS PA STAND/LAT 2V RADEX ENTIR THRC LMBR CRV SAC SPI W/SKULL 2/3 Ancelmo Wild PA-C [address] [place] [address] Xr Imaging Referral ID Status Reason Start Date Expiration Date V isits Requested Visits Authorized [id number] Closed Auto-Generate d Referral 10/15/2021 11/14/2022 1 1 [facility] for referral (narrative)No reason for referral information availableHolzer [facility] System Work Phone: Reason for visit Narrative* Diagnostic Procedure Only (Routine) - Closed Specialty Diagnoses / Procedures Referred By Mouna mclean Referred To Contact XR IMAGING Diagnoses Scoliosis of thoracolumbar spine, unspecified scoliosis type Procedures XR SCOLIOSIS PA STAND/LAT 2V RADEX ENTIR THRC LMBR CRV SAC SPI W/SKULL 2/3 Ancelmo Wild PA-C [address] [place] [address] Xr Imaging Referral ID Status Reason Start Date Expiration Date V isits Requested Visits Authorized [id number] Closed Auto-Generate d Referral 10/15/2021 11/14/2022 1 1 [facility] Summary Purpose Family History Relationship Condition [...] 38am B12 shot April 08, 2024 10:25am Chief Complaint Admit Date B12 shot February 15, 2024 8:30am b12 shot February 22, 2024 8:33am B12 Shot February 29, 2024 8: 20am b12 shot March 07, 2024 9: 38am B12 shot April 08, 2024 10:25am follow up May 08, 2024 8:5 4am Reason for Visit Admit Date Carpal tunnel syndrome on both sides Apr 8:54am Chronic kidney disease May 08, 2024 8:54am Elevated BP without diagnosis of hyperte nsion May 08, 2024 8:54am VALDEZ (generalized anxiety disorder) May 08, 2024 8:54am GERD (gastroesophageal reflux disease) [facility] 2024 8:54am 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 May 08, 2024 8:54am Pernicious anemia May 08, 2024 8:5 4am Chief Complaint Admit Date B12 shot April 08, 2024 10:25am follow up May 08, 2024 8:5 4am B12 Shot June 07, 2024 8:5 1am Chief Complaint Admit Date follow up May 08, 2024 8:5 4am B12 Shot June 07, 2024 8:5 1am b12 shot July 11, 2024 8:59a m Reason for Visit Admit Date Carpal tunnel syndrome on both sides [facility] 2024 8:54am Chronic kidney disease May 08, 2024 8:54am Elevated BP without diagnosis of hyperte nsion May 08, 2024 8:54am VALDEZ (generalized anxiety disorder) May 08, 2024 8:54am GERD (gastroesophageal reflux disease) [facility] 2024 8:54am 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 May 08, 2024 8:54am Pernicious anemia May 08, 2024 8:5 4am Pernicious anemia June 07, 2024 8:5 1am Chief Complaint Admit Date b12 shot July 11, 2024 8:59a m B12 shot August 12, 2024 9:05 am Wellness September 16, 2024 8:54 am Reason for Visit Admit Date Carpal tunnel syndrome on both sides [facility] 2024 8:54am Chronic kidney disease September 16, 2024 8 :54am VALDEZ (generalized anxiety disorder) September 16, 2024 8:54am GERD (gastroesophageal reflux disease) [facility] 2024 8:54am Hypertension September 16, 2024 8:54 am 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 September 16, 2024 8:54am Osteoporosis September 16, 2024 8:54 am Pernicious anemia September 16, 2024 8:54 am Medicare annual wellness visit, subseque nt September 16, 2024 8:54am Screening mammogram for breast cancer [facility] 2024 8:54am Additional Source Comments INFORMATION SOURCE (unrecogn ized section and content) DATE CREATED AUTHOR 09/02/2021 [facility] DATE CREATED AUTHOR AUTHOR'S ORGANIZ ATION 03/07/2022 [facility] DATE CREATED AUTHOR AUTHOR'S ORGANIZ ATION 07/13/2022 [facility] DATE CREATED AUTHOR AUTHOR'S ORGANIZ ATION 02/23/2024 [facility] Source Comments (unrecognize d section and content) In the event this informatio n is protected by the Federal Confidentiality of Alcohol and Drug Abuse Patient Records regulations: The Federal rules restrict any use of the information to criminally investigate or prosecute any alcohol or drug abuse patient.[facility] HospitalIn the event this information is protected by the Federal Confidentiality of Alcohol and Drug Abuse Patient Records regulations: The Federal rules restrict any use of the information to criminally investigate or prosecute any alcohol or drug abuse patient.[facility] HospitalIn the event this information is protected by the Federal Confidentiality of Alcohol and Drug Abuse Patient Records regulations: The Federal rules restrict any use of the information to criminally investigate or prosecute any alcohol or drug abuse patient.[facility] Reason for Visit (unrecogniz ed section and content) Reason Comments Results Reason Comments New Patient Care Teams (unrecognized sec tion and content) Team Status: Active Member Role Status Narinder Mota DO Primary Care Provider Active Team Status: Inactive Member Role Status Narinder Mota DO Primary Care Provider Active Start: July 11, 2024 End: July 11, 2024 Kar Mota DO Attending Provider Active Sta rt: July 11, 2024 End: July 11, 2024 Team Status: Inactive Member Role Status Narinder Mota DO Primary Care Provider Active Start: August 12, 2024 End: August 12, 2024 Kar Mota DO Attending Provider Active Sta rt: August 12, 2024 End: August 12, 2024 Team Status: Inactive Member Role Status Narinder Mota DO Primary Care Provider Active Start: September 16, 2024 End: September 16, 2024 Kar Mota DO Attending Provider Active Sta rt: September 16, 2024 End: September 16, 2024 Team Status: Active Member Role Status Narinder Mota DO Primary Care Provider Active Team Status: Active Member Role Status Narinder Mota DO Primary Care Provide r, Attending Provider Active Start: May 03, 2024 Team Status: Inactive Member Role Status Narinder Mota DO Primary Care Provide r, Attending Provider Active Start: May 08, 2024 End: May 08, 2024 Team Status: Inactive Member Role Status Narinder Mota DO Primary Care Provider Active Start: June 07, 2024 End: June 07, 2024 Kathrine Marcial MD Attending Provider Active St art: June 07, 2024 End: June 07, 2024 Team Status: Inactive Member Role Status Narinder Mota DO Primary Care Provide r, Attending Provider Active Start: July 11, 2024 End: July 11, 2024 Team Status: Inactive Member Role Status Narinder Mota DO Primary Care Provide r, Attending Provider Active Start: April 08, 2024 End: April 08, 2024 Team Status: Active Member Role Status Narinder Mota DO Primary Care Provide r, Attending Provider Active Start: December 15, 2023 Team Status: Active Member Role Status Narinder Mota DO Primary Care Provide r, Attending Provider Active Start: February 09, 2024 Team Status: Inactive Member Role Status Narinder Mota DO Primary Care Provide r, Attending [...] DO Primary Care Provider Active Start: July 11, 2024 End: July 11, 2024 Kar Mota , DO Attending Provider Active Sta rt: July 11, 2024 End: July 11, 2024 Team Status: Inactive Member Role Status Dates Kar Mota , DO Primary Care Provider Active Start: August 12, 2024 End: August 12, 2024 Kar Mota , DO Attending Provider Active Sta rt: August 12, 2024 End: August 12, 2024 Team Status: Inactive Member Role Status Dates Kar Mota , DO Primary Care Provider Active Start: September 16, 2024 End: September 16, 2024 Kar Mota , DO Attending Provider Active Sta rt: September 16, 2024 End: September 16, 2024 Goals (unrecognized section and content) Goals [...] BE BASED ON THE PRIMARY CLINICAL RECORDS. [facility]20lines [facility]. provides no warranty or guarantee of the accuracy or completeness of information in this document.
--- OUTSIDE RECORDS SUMMARY | 2024-09-30 07:31 | XMS_ITS | Clinical Summary ---
Author Organization [facility] Address [address] [place] [address] Care Team Providers Care Senior Network Engineer Name Role Phone Unavailable Primary Care Provider Unavailabl e Allergies Active Allergy Reactions Criticality Noted Date Comments Amoxicillin Anaphylaxis High 10/15/2021 Nitrofurantoin Monohyd/M-Cryst Anaphylaxis High 09/27 Sulfa (Sulfonamide Antibiotics) Anaphylaxis High Medications gabapentin (NEURONTIN) 100 mg capsule Take 200 mg by mouth twice daily. 2 Active nabumetone (RELAFEN) 750 mg tablet 2 Active omeprazole (PRILOSEC) 40 mg capsule TAKE 1 CAPSULE BY MOUTH 2 TIMES DAILY FOR 12 WEEKS 2 Active zoledronic acid (RECLAST) 5 mg/100 mL pgbk PREMIX piggyback Inject 5 mg intravenously every year. Active vit A/vit C/vit E/zinc/copper (PRESERVISION AREDS ORAL) Take by mouth. Act jonathon baclofen (LIORESAL) 10 mg tablet Take 10 mg by mouth daily at bedtime. Active Social History Tobacco Use Types Packs/Day Years Used Date Smoking Tobacco: Former Cigarettes Smokeless Tobacco: Never Tobacco Cessation:Counseling Given: Not Answered Alcohol Use Standard Drinks/Week Comments Never 0 (1 standard drink = 0.6 oz pur e alcohol) PHQ-2 Answer Date Recorded PHQ-2 score 6 02/01/2022 Area Deprivation Index Answer Date Shorty rded National Score (1-100), lower number is lower ri sk 70 03/24/2022 State Score (1-10), lower number is lower risk N ot on file 03/24/2022 Data from: https://www.neighborhoodatlas.medicine.[facility].edu/. Last address used for calculation [address] [address] [facility] 03/24/2022 Comments Unknown Sex and Gender Information Value Date Recorded Sex Assigned at Not on file Legal Sex Female 9:37 AM EST Gender Identity Not on file Sexual Orientation Not on file Last Filed Vital Signs Vital Sign Reading Time Taken Comments Blood Pressure 168/76 02/01/2022 10:22 AM EST pt states worked up from driving here Pulse 71 02/01/2022 10:22 AM EST Temperature - - Respiratory Rate 14 02/01/2022 10:2 2 AM EST Oxygen Saturation 98% 02/01/2022 10: 22 AM EST Inhaled Oxygen Concentration - - Weight 49.9 kg (110 lb) 02/01/2022 10:2 2 AM EST Height 160 cm (5' 3 ) 02/01/2022 10:22 AM EST Body Mass Index 19.49 02/01/2022 10:22 AM EST Plan of Treatment Health Maintenance Due Date Last Done Comments Anxiety Screening 1966 Depression Screening 1966 Hepatitis C Screening 1966 DTaP,Tdap,Td Vaccine (1 - Tdap) 11/13/1967 CT Colonography 1993 Cologuard (FIT-DNA) 1993 Colonoscopy 1993 Colorectal Cancer Screening 1993 Diabetes Screening 1993 Fecal Occult Blood 1993 Lipid Screening 1993 Sigmoidoscopy 1993 Pneumococcal Vaccine: 50+ (1 of 1 - PCV) 1998 Shingrix Vaccine (1 of 2) 1998 Bone Density Screening 2013 RSV Vaccine (1 - 1-dose 75+ series) 11/13/2023 Advance Directive Discussion 02/28/2024 Medicare Advantage Annual We llness Visit 02/28/2024 Influenza Vaccine (#1) 2024 , 12/07/2017, 12/19/2016, Additional history exists [facility]
--- OUTSIDE RECORDS SUMMARY | 2024-09-30 07:31 | XMS_ITS | Patient Health Record ---
Author Organization [facility] Address [address] [place] [address] Care Team Providers Care Ad Operations Specialist Name Role Phone HORTENCIA BHARDWAJ DO Primary Care Provider Unavaila ash Varela Wilfred Unavailable [phone] ELAINA TUCKER CNP Unavailable Unavailable Chang Salamanca Unavailable [phone] KarenTanna koch Unavailable Allergies Allergen (clinical drug ingredient) Drug/Non Drug Allergy documented on EMR Reaction Allergy Type Onset Date Status sulfa (uncoded) Unknown Allergy Acti ve nitrofurantoin, macrocrystals / nitrofurantoin, monohydrate Macrobid Unknown Drug Allergy Active amoxicillin amoxicillin Unknown Drug Allergy Act jonathon Reason For Referral No Information Medications Medication SIG (Take, Route, Fr equency, Duration) Notes Start Date End Date Status nabumetone Active Calcium 600+D Active PreserVision AREDS 2 Active Reclast Active baclofen Active gabapentin Active Social History Tobacco Use: Social History Observation Description Date Details (start date - stop date) Never Smoker NA - NA AUDIT-C (Standard) Question Answer Notes Did you have a drink containing alcohol in the p ast year? No Points 0 Interpretation Negative Tobacco Control (Standard) Question Answer Notes Tobacco use: Nonsmoker Problems Problem Type SNOMED Code ICD Code Onset Dates Problem Status W/U Status Risk Notes Problem 078200500 Other idiopathic scoliosis, lumbar region (M41.26) Active confirmed Problem Sciatic nerve lesion (226500603) Piriformis syndrome of right side (G57.01) Active confirmed Problem 251110722 Scoliosis, unspecified scoliosis type, unspecified spinal region (M41.9) Active confirmed Encounters Encounter Location Date Provider Diagnosis [facility] Office [address] [place] [address] [place] [address] 11/20/2023 Tanna Barcenas Piriformis syndrome of right side G57.01 and Other idiopathic scoliosis, lumbar region M41.26 Assessments Encounter Date Diagnosis (ICD Code) Assessment Notes Treatment Notes Treatment Clinical Notes Section Notes 11/20/2023 Other idiopathic scoliosis, lumbar region (ICD-10 - M41.26) 11/20/2023 Piriformis syndrome of right side (ICD-10 - G57.01) 11/20/2023 Other Patient was evaluated by myself and Dr. Varela today. On exam today patient does have some ischial tuberosity tenderness but is far more tender over the piriformis/glutea l muscles. For this we are recommending conservative treatment and discussed with the patient that she can return to pain management for various treatments for this. The patient can follow-up with us on an as-needed basis. Patient voiced understanding and agreed with plan. Plan Of Treatment Pending Test Test Name Order Date [facility]- HIP W/ PELVIS, RIGHT [id number] 11/20/19 24 Insurance Providers Payer Name Payer Address Payer Phone Subscriber Number Group Number Insured Name Patient Relationship to Insured Coverage Start Date Coverage End Date Medicare [employer] [address] [address] [place] [address] [phone] [id number] KIMBERLY LUJAN Self - patient is the insured Medical (General) History Medical History History ICD Code Drug Allergies
[2024-09-30 07:33] VITALS: BP 169/83; PULSE 74; TEMP 36.7; O2SAT 100
[2024-09-30 08:35] VITALS: BP 187/87; BP 197/86; PULSE 76; O2SAT 100
[2024-09-30] MEDS: 0.9 % SODIUM CHLORIDE 10 ML SYRINGE - SALINE FLUSH INJ (08:35)
[2024-09-30] MEDS: BUPIVACAINE HCL 0.25% PF 25 MG/10 ML VIAL INJ (08:35)
[2024-09-30] MEDS: DEXAMETHASONE SOD PHOS 10 MG/ML VIAL INJ (08:36)
[2024-09-30] MEDS: IOHEXOL 240 MG/ML - 10 ML VIAL INJ (08:36)
[2024-09-30] MEDS: LIDOCAINE HCL 2% 400 MG/20 ML MDV INJ (08:36)
--- NOTE | 2024-09-30 08:39 | P.ON_ITS ---
Date of procedure: 09/30/24 Pre-op diagnosis: Pain due to lumbar stenosis with neurogenic claudication Post-op diagnosis: same as pre-op Procedure: Procedure: Right L3-4, 4-5 transforaminal epidural steroid injection Medications: Bupivacaine 0.25% 2cc, lidocaine 2% 1cc, depomedrol 80mg The patient was seen and examined in the preoperative holding area.? Informed consent was obtained and placed on the chart.? Patient was brought to the medical procedure unit and placed in the prone position where a timeout was completed verifying the correct patient, procedure site, position, and planned special equipment using sterile aseptic technique.? Under direct fluoroscopic visualization a 25-gauge Quincke tipped spinal needle was advanced to the designated neural foramen where contrast dye was injected to show adequate spread.? The needle was inserted at level right L3-4. There was no evidence of vascular or adverse uptake.? Epidural spread was appreciated.? The above- mentioned injectate was then placed in a 1.5 mL aliquot preceded by negative aspiration.? The needle was removed. The needle was inserted and the procedure repeated at level right L4-5.? The surgery site was covered.? Patient was taken to the postprocedural recovery area and monitored for an appropriate length of time before found suitable for discharge in the accompaniment of a responsible adult. Anesthesia: Local Surgeon: Clifton Matthews Pathology: none sent Condition: stable Disposition: no change
== END 2024-09-30 08:45 | disposition home or self-care (01) ==
LOC: SURGOUT 07:29
PROVIDERS: PCP Internal Medicine; Visit Provider Anesthesiology
DX: M48.062 Spinal stenosis, lumbar region with neurogenic claudication (principal); M54.50 Low back pain, unspecified
CPT/HCPCS: 64483; 64484; J0665; J1100; Q9966

== ENCOUNTER 2024-10-09 08:32 | Outpatient (OUT) | payer MEDICARE, SELFPAY ==
--- OUTSIDE RECORDS SUMMARY | 2023-11-17 06:30 | XMS_ITS ---
Author Organization [facility] Address [address] [place] [address] Care Team Providers Care Centerpuncher Name Role Phone HORTENCIA BHARDWAJ DO Primary Care Provider Wilfred Covarrubias Unavailable [phone] ELAINA TUCKER CNP Unavailable Unavailable Chang Salamanca Unavailable [phone] REASON FOR VISIT LUMBAR PAIN Encounters Encounter Location Date Provider Diagnosis [facility] [address] [place] [id number] 11/17/2023 Chang Salamanca Plan Of Treatment No Information Progress Notes * KIMBERLY LUJAN LDOB:1950 (73 yo F)Acc No.[id number]:11/17/2023 Patient: KIMBERLY BOYD Provider: Luis Bonner MD, PhD :1950 A ge:73 Y S ex:Female Date:11/17/2023 Address:[address] [place], [place] [id number] Pcp:HORTENCIA BHARDWAJ DO Subjective: * Chief Complaints: * 1 . LUMBAR PAIN. * Medical History: Objective: * Vitals: Assessment: Plan: * Treatment: Forms: * Images: * Electronic signature of Jessica Salamanca MD, PHD on 10/09/2024 at 08:34 AM EDT Sign off status: Pending * Provider: Luis Bonner MD, PhD Date: 0 11/17/2023 Generated for Printi ng/Faxing/eTransmitting on: 0 10/09/2024 08:34 AM EDT
--- OUTSIDE RECORDS SUMMARY | 2023-12-01 06:30 | XMS_ITS ---
Author Organization [facility] Address [address] [place] [address] Care Team Providers Care Portuguese Tutor Name Role Phone HORTENCIA BHARDWAJ DO Primary Care Provider Wilfred Covarrubias Unavailable [phone] ELAINA TUCKER CNP Unavailable Unavailable Chang Salamanca Unavailable [phone] REASON FOR VISIT LUMBAR PAIN Encounters Encounter Location Date Provider Diagnosis [facility] [address] [place] [phone] 12/01/2023 Chang Salamanca Plan Of Treatment No Information Progress Notes * KIMBERLY LUJAN LDOB:1950 (73 yo F)Acc No.[id number]:12/01/2023 Patient: KIMBERLY BOYD Provider: Luis Bonner MD, PhD :1950 A ge:73 Y S ex:Female Date:12/01/2023 Address:[address] [place], [place] [phone] Pcp:HORTENCIA BHARDWAJ DO Subjective: * Chief Complaints: * 1 . LUMBAR PAIN. * Medical History: Objective: * Vitals: Assessment: Plan: * Treatment: Forms: * Images: * Electronic signature of Jessica Salamanca MD, PHD on 10/09/2024 at 08:34 AM EDT Sign off status: Pending * Provider: Luis Bonner MD, PhD Date: 1 Generated for Louie lu/Faxing/eTransmitting on: 0 10/09/2024 08:34 AM EDT
--- OUTSIDE RECORDS SUMMARY | 2024-10-09 08:34 | XMS_ITS | Patient Health Record ---
Author Organization [facility] Address [address] [place] [address] Care Team Providers Care Basket Filler Name Role Phone HORTENCIA BHARDWAJ DO Primary Care Provider Unavaila Justus Bullocken Unavailable [phone] ELAINA TUCKER CNP Unavailable Unavailable Chang Salamanca Unavailable [phone] KarenTanna koch Unavailable [phone] Allergies Allergen (clinical drug ingredient) Drug/Non Drug [...] Problem Status W/U Status Risk Notes Problem 095019941 Other idiopathic scoliosis, lumbar region (M41.26) Active confirmed Problem Piriformis syndrome of right side (G57.01) Active confirmed Problem 745141000 Scoliosis, unspecified scoliosis type, unspecified spinal region (M41.9) Active confirmed Encounters Encounter Location Date Provider Diagnosis [facility] [place] Office [address] [place] [address] [address] [place] [address] 11/20/2023 Tanna Barcenas Piriformis syndrome of right [...] Order Date [facility]- HIP W/ PELVIS, RIGHT [id number] 11/20/19 24 Insurance Providers Payer Name Payer Address Payer Phone Subscriber Number Group Number Insured Name Patient Relationship to Insured Coverage Start Date Coverage End Date Medicare [employer] [address] [address] [place] [address] [id number] KIMBERLY LUJAN Self - patient is the insured Medical (General) History Medical History History ICD Code Drug Allergies
--- OUTSIDE RECORDS SUMMARY | 2024-10-09 08:34 | XMS_ITS | Encounter Summary ---
Author Organization [facility] Address [address] [place] [address] Care Team Providers Care Scrap Wheeler Name Role Phone Unavailable Primary Care Provider Unavailabl e Source Comments In the event this information is protected by the Federal Confidentiality of Alcohol and Drug AbusePatient Records regulations: The Federal rules restrict any use of the information to criminally investigate or prosecute any alcohol or drug abuse patient.[facility] Encounter Details Date Type Department Care Team (Late st Contact Info) Description 06/07/2022 Patient Msg Neurology [address] [place], [place] [id number] Provider, [facility] Appointment Reschedule Social History Tobacco [...] N ot on file 03/24/2022 Data from: https://www.neighborhoodatlas.medicine.[facility].edu/. Last address used for calculation [address] [place] [address] 03/24/2022 Comments Unknown Sex and Gender Information Value Date Recorded Sex Assigned at Not on file Legal Sex Female 9:37 AM EST Gender Identity Not on file Sexual Orientation Not on file documented as of this encounter Plan of Treatment Not on file documented as of this encounter Visit Diagnoses Not on filedocumented in this encounter
--- OUTSIDE RECORDS SUMMARY | 2024-10-09 08:35 | XMS_ITS | Clinical Summary ---
Author Organization [facility] Address [address] [place] [address] Care Team Providers Care Generator Operator Straight Bevel Gear Name Role Phone Unavailable Primary Care Provider [...] N ot on file 03/24/2022 Data from: https://www.neighborhoodatlas.medicine.[facility].edu/. Last address used for calculation [address] [facility] 03/24/2022 Comments Unknown Sex and Gender Information [...] , 12/07/2017, 12/19/2016, Additional history exists Insurance [facility] MEDIC[facility]
--- OUTSIDE RECORDS SUMMARY | 2024-10-09 08:36 | XMS_ITS | CCD ---
Author Organization [facility] CliniSyme Care Team Providers Care Supervisor Net Making Name Role Phone Unavailable Primary Care Provider [...] Amoxicillin; Translations: [AMOXICILLIN] Drug Allergy 2 Anaphylaxis [facility] Comment on above: Onset Date: 02/08/20 16 (14 sources) NITROFURANTOIN, MACROCRYSTALS / Nitrofurantoin, Monohydrate; Translations: [NITROFURANTOIN MONOHYD/M-CRYST] Drug Allergy 2 Anaphylaxis [facility] (20 sources) Sulfonamides (Antibiotic); Translations: [SULFA (SULFONAMIDE ANTIBIOTICS)] Drug Allergy 2 Anaphylaxis [facility] (1 source) Amoxicillin Drug Allergy 1 [facility] (2 sources) Nitrofurantoin Drug Allergy 3 [facility] (2 sources) Sulfonamides (Antibiotic) Drug allergy (disorder) 3 [facility] (10 sources) Amoxicillin-Pot Clavulanate Drug allergy 6 Unknown [facility] Other (9 sources) Clavulanate Drug Allergy 4 Unknown Reaction [facility] [place] [facility] Comment on above: Onset Date: 02/08/20 16 [...] therapy docusate sodium 50 mg / sennosides, long term 8.6 mg oral tablet (3 sources) Start: 12-26-2022 take 8.6-50 mg by mouth once daily in the evening as needed Senokot S 8.6-50 MG 1 tablet as needed Orally q evening for 30 days Nov, Active Vit C,K-Qc-Zzrpl-Lutein-Z eaxan (Preservision Areds-2) 250-90-40-1 mg Capsule (9 sources) Start: 08-27-2021 Vit C,J-Xj-Iybrj-Lutei n-Zeaxan (Preservision Areds-2) 250-90-40-1 mg Capsule Active 1 TAB PO Twice daily August 27, 2021 12:00am Complies with drug therapy Start: 08-27-2021 Vit C,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 gb-Zvicii-Zeltni (Preservision Areds-2) 250-90-40-1 mg Capsule Active 1 TAB PO Twice daily August 26, 2021 11:00pm Start: 08-27-2021 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,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 hx-Nioxss-Pkptpl (Preservision Areds-2) 250-90-40-1 mg Capsule Active 1 TAB PO Twice daily August 27, 2021 12:00am 100 ml zoledronic acid 0.05 mg/ml injection (12 sources) Bisphosphonate Start: 08-27-2021 take 5 mg intravenously once Zoledronic Utuh-Oijhjiyf-Xajiy (Reclast) 5 mg/100 mL Piggyback Active 5 [...] Comment on above: TAKE 1 CAPSULE BY [facility] 2 TIMES DAILY FOR 12 WEEKS [...] 08-01-2023 Chronic Other aftercare (2 sources) Other care home (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; Translations: [OTH ORE TESTER CURRENT DRUG THERAPY] Onset: 2 Episodic Other aftercare (6 sources) Long-term current use of drug therapy; Translations: [Other care home (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] Episodic Other bone disease [...] Basophils (Bld) [#/Vol] Automated basophil count 0.0-0.1 [facility] [place] [facility] Basophils/100 WBC Auto (Bld) on 05-03-2024 Basophils/100 WBC (Bld) Automated basophil % 0.2-2.0 [facility] [place] [facility] Eosinophils/100 WBC Auto (Bl d)on 05-03-2024 Eosinophils/100 WBC (Bld) Automated eosinophil % 0.9-7.0 [facility] [place] [facility] Erythrocyte distribution wid th Auto (RBC) [Ratio]on 05-03-2024 Erythrocyte distribution width (RBC) [Ratio] Erythrocyte distribution width [Ratio] by Automated count 11.0-15.0 [facility] [place] [facility] Hematocrit Auto (Bld) [Volum e fraction]on 05-03-2024 Hematocrit (Bld) [Volume fraction] Hematocrit [Volume Fraction] of Blood by Automated count Low 36.0-48.0 [facility] [place] [facility] Hemoglobin [Mass/volume] in Bloodon 05-03-2024 Hemoglobin (Bld) [Mass/Vol] Hemoglobin [Mass/volume] in Blood Low 12.0-16.0 [facility] [place] [facility] Laboratory - Hematology and Cell countson 05-03-2024 Immature granulocytes/100 WBC (Bld) 0.4 % 0.0-0.5 [facility] [place] [facility] Leukocytes [#/volume] correc ric for nucleated erythrocytes in Blood by Automated counon 05-03-2024 WBC corrected for nucl RBC Auto (Bld) [#/Vol] Leukocytes [#/volume] corrected for nucleated erythrocytes in Blood by Automated coun 4.0-11.0 [facility] [place] [facility] Lymphocytes Auto (Bld) [#/Vo l]on 05-03-2024 Lymphocytes (Bld) [#/Vol] Lymphocytes [#/volume] in Blood by Automated count 1.2-3.8 [facility] [place] [facility] Lymphocytes/100 WBC Auto (Bl d)on 05-03-2024 Lymphocytes/100 WBC (Bld) Lymphocytes/100 leukocytes in Blood by Automated count 20.5-60.0 [facility] [place] [facility] MCH Auto (RBC) [Entitic mass ]on 05-03-2024 MCH (RBC) [Entitic mass] MCH [Entitic mass] by Automated count 26.7-34.0 [facility] [place] [facility] MCHC Auto (RBC) [Mass/Vol]on 05-03-2024 MCHC (RBC) [Mass/Vol] MCHC [Mass/volume] by Automated count 29.9-35.2 [facility] [place] [facility] MCV Auto (RBC) [Entitic vol] on 05-03-2024 MCV (RBC) [Entitic vol] MCV [Entitic volume] by Automated count 81.0-99.0 [facility] [place] [facility] Monocytes Auto (Bld) [#/Vol] on 05-03-2024 Monocytes (Bld) [#/Vol] Automated blood monocyte count 0.3-0.8 [facility] [place] [facility] Monocytes/100 WBC Auto (Bld) on 05-03-2024 Monocytes/100 WBC (Bld) Automated monocyte % 1.7-12.0 [facility] [place] [facility] Neutrophils Auto (Bld) [#/Vo l]on 05-03-2024 Neutrophils (Bld) [#/Vol] Neutrophils [#/volume] in Blood by Automated count 1.4-6.5 [facility] [place] [facility] Neutrophils/100 WBC Auto (Bl d)on 05-03-2024 Neutrophils/100 WBC (Bld) Automated neutrophil % 43.0-75.0 [facility] [place] [facility] No Panel Informationon 05-03 Eosinophils # (Auto) 0.2 10 3/uL 0.0-0.7 [facility] Immature Granulocyte # (Auto) 0.02 10 3/uL 0.00-0.03 [facility] [place] [facility] Platelet mean volume Auto (B ld) [Entitic vol]on 05-03-2024 Platelet mean volume (Bld) [Entitic vol] Platelet mean volume [Entitic volume] in Blood by Automated count Low 9.5-13.5 [facility] [place] [facility] Platelets Auto (Bld) [#/Vol] on 05-03-2024 Platelets (Bld) [#/Vol] Platelets [#/volume] in Blood by Automated count 150-450 [facility] [place] [facility] RBC Auto (Bld) [#/Vol]on RBC (Bld) [#/Vol] Erythrocytes [#/volume] in Blood by Automated count Low 4.20-5.40 [facility] [place] [facility] Basophils Auto (Bld) [#/Vol] on 02-09-2024 Basophils (Bld) [#/Vol] Automated basophil count 0.0-0.1 [facility] [place] [facility] Basophils/100 WBC Auto (Bld) on 02-09-2024 Basophils/100 WBC (Bld) Automated basophil % 0.2-2.0 [facility] [place] [facility] Eosinophils/100 WBC Auto (Bl d)on 02-09-2024 Eosinophils/100 WBC (Bld) Automated eosinophil % 0.9-7.0 [facility] [place] [facility] Erythrocyte distribution wid th Auto (RBC) [Ratio]on 02-09-2024 Erythrocyte distribution width (RBC) [Ratio] Erythrocyte distribution width [Ratio] by Automated count 11.0-15.0 [facility] [place] [facility] Estimated glomerular filtrat ion rate (GFR) non- Americanon 02-09-2024 GFR/1.73 sq M.predicted among non-blacks MDRD (S/P/Bld) [Vol rate/Area] Estimated glomerular filtration rate (GFR) non- Low >=60 mL/min/1.73m 2 [facility] [place] [facility] Hematocrit Auto (Bld) [Volum e fraction]on 02-09-2024 Hematocrit (Bld) [Volume fraction] Hematocrit [Volume Fraction] of Blood by Automated count Low 36.0-48.0 [facility] [place] [facility] Hemoglobin [Mass/volume] in Bloodon 02-09-2024 Hemoglobin (Bld) [Mass/Vol] Hemoglobin [Mass/volume] in Blood Low 12.0-16.0 [facility] [place] [facility] Iron binding capacity [Mass/ volume] in Serum or Plasmaon 02-09-2024 Iron binding capacity [Mass/Vol] Iron binding capacity [Mass/volume] in Serum or Plasma 250.0-450.0 [facility] [place] [facility] Iron saturation [Mass Fracti on] in Serum or Plasmaon 02-09-2024 Iron saturation [Mass fraction] Iron saturation [Mass Fraction] in Serum or Plasma [facility] [place] [facility] Laboratory - Chemistry and C hemistry - challengeon 02-09-2024 Calcium [Mass/Vol] 9.8 mg/dL 8.5-10.1 [facility] Chloride [Moles/Vol] 107 mmol/L 98-107 [facility] CO2 [Moles/Vol] 31.1 mmol/L 21.0-32.0 [facility] Cobalamin (Vitamin B12) [Mass/Vol] 250 pg/mL 232-1245 [facility] [place] [facility] Comment on above: Performed at: - [facility] [address] [id number] Director: Primo Richard PhD, Phone: [phone] Creatinine [Mass/Vol] 1.25 mg/dL High 0.55-1.02 [facility] Ferritin [Mass/Vol] 28.0 ng/mL 8.0-252.0 [facility] GFR/1.73 sq M.predicted MDRD (S/P/Bld) [Vol rate/Area] 51 mL/min/{1.73_m2} Low >=60 mL/min/1.73m 2 [facility] [place] [facility] Glucose [Mass/Vol] 87 mg/dL 74-106 [facility] Iron [Mass/Vol] 122.0 ug/dL 50.0-170.0 [facility] Potassium [Moles/Vol] 4.1 mmol/L 3.5-5.1 [facility] Sodium [Moles/Vol] 147 mmol/L High 136-145 [facility] Urea nitrogen [Mass/Vol] 20.0 mg/dL High 7.0-18.0 [facility] [place] [facility] Urea nitrogen/Creatinine [Mass ratio] 16.0 mg/mg [facility] [place] [facility] Laboratory - Hematology and Cell countson 02-09-2024 Immature granulocytes/100 WBC (Bld) 0.2 % 0.0-0.5 [facility] [place] [facility] Leukocytes [#/volume] correc ric for nucleated erythrocytes in Blood by Automated counon 02-09-2024 WBC corrected for nucl RBC Auto (Bld) [#/Vol] Leukocytes [#/volume] corrected for nucleated erythrocytes in Blood by Automated coun 4.0-11.0 [facility] [place] [facility] Lymphocytes Auto (Bld) [#/Vo l]on 02-09-2024 Lymphocytes (Bld) [#/Vol] Lymphocytes [#/volume] in Blood by Automated count 1.2-3.8 [facility] [place] [facility] Lymphocytes/100 WBC Auto (Bl d)on 02-09-2024 Lymphocytes/100 WBC (Bld) Lymphocytes/100 leukocytes in Blood by Automated count 20.5-60.0 [facility] [place] [facility] MCH Auto (RBC) [Entitic mass ]on 02-09-2024 MCH (RBC) [Entitic mass] MCH [Entitic mass] by Automated count 26.7-34.0 [facility] [place] [facility] MCHC Auto (RBC) [Mass/Vol]on 02-09-2024 MCHC (RBC) [Mass/Vol] MCHC [Mass/volume] by Automated count 29.9-35.2 [facility] [place] [facility] MCV Auto (RBC) [Entitic vol] on 02-09-2024 MCV (RBC) [Entitic vol] MCV [Entitic volume] by Automated count 81.0-99.0 [facility] [place] [facility] Monocytes Auto (Bld) [#/Vol] on 02-09-2024 Monocytes (Bld) [#/Vol] Automated blood monocyte count 0.3-0.8 [facility] [place] [facility] Monocytes/100 WBC Auto (Bld) on 02-09-2024 Monocytes/100 WBC (Bld) Automated monocyte % 1.7-12.0 [facility] [place] [facility] Neutrophils Auto (Bld) [#/Vo l]on 02-09-2024 Neutrophils (Bld) [#/Vol] Neutrophils [#/volume] in Blood by Automated count 1.4-6.5 [facility] [place] [facility] Neutrophils/100 WBC Auto (Bl d)on 02-09-2024 Neutrophils/100 WBC (Bld) Automated neutrophil % 43.0-75.0 [facility] [place] [facility] No Panel Informationon 02-08 Eosinophils # (Auto) 0.1 10 3/uL 0.0-0.7 [facility] Folate 21.20 ng/mL 8.60-58.90 [facility] [place] [facility] Immature Granulocyte # (Auto) 0.01 10 3/uL 0.00-0.03 [facility] [place] [facility] Platelet mean volume Auto (B ld) [Entitic vol]on 02-09-2024 Platelet mean volume (Bld) [Entitic vol] Platelet mean volume [Entitic volume] in Blood by Automated count Low 9.5-13.5 [facility] [place] [facility] Platelets Auto (Bld) [#/Vol] on 02-09-2024 Platelets (Bld) [#/Vol] Platelets [#/volume] in Blood by Automated count 150-450 [facility] [place] [facility] RBC Auto (Bld) [#/Vol]on RBC (Bld) [#/Vol] Erythrocytes [#/volume] in Blood by Automated count Low 4.20-5.40 [facility] [place] [facility] Serum or plasma anion gap de terminationon 02-09-2024 Anion gap [Moles/Vol] Serum or plasma anion gap determination [facility] [place] [facility] Estimated glomerular filtrat ion rate (GFR) non- Americanon 12-15-2023 GFR/1.73 sq M.predicted among non-blacks MDRD (S/P/Bld) [Vol rate/Area] Estimated glomerular filtration rate (GFR) non- Low >=60 mL/min/1.73m 2 [facility] [place] [facility] Laboratory - Chemistry and C hemistry - challengeon 12-15-2023 Calcium [Mass/Vol] 9.7 mg/dL 8.5-10.1 [facility] Chloride [Moles/Vol] 106 mmol/L 98-107 [facility] CO2 [Moles/Vol] 29.9 mmol/L 21.0-32.0 [facility] Creatinine [Mass/Vol] 1.26 mg/dL High 0.55-1.02 [facility] GFR/1.73 sq M.predicted MDRD (S/P/Bld) [Vol rate/Area] 50 mL/min/{1.73_m2} Low >=60 mL/min/1.73m 2 [facility] [place] [facility] Glucose [Mass/Vol] 91 mg/dL 74-106 [facility] Potassium [Moles/Vol] 3.7 mmol/L 3.5-5.1 [facility] Sodium [Moles/Vol] 143 mmol/L 136-145 [facility] Urea nitrogen [Mass/Vol] 21.0 mg/dL High 7.0-18.0 [facility] [place] [facility] Urea nitrogen/Creatinine [Mass ratio] 16.7 mg/mg [facility] [place] [facility] No Panel Informationon 12-14 25-Hydroxy Vitamin D Total 68.1 ng/mL [facility] [place] [facility] Comment on above: <20 ng/mL Vit D defi cient20-<30 ng/mL Vit D qvxtkfzhjdeu07-761 ng/mL Vit D sufficient>100 ng/mL Potential Toxicity Serum or plasma anion gap de terminationon 12-15-2023 Anion gap [Moles/Vol] Serum or plasma anion gap determination [facility] [place] [facility] CBC AUTO DIFFon 03-08-2022 BASO # 0.0 103/ul Normal 0.0-0.1 [facility] Comment on above: Performed By: #### C BC ####[facility] [address] [place] [address]Dr. Tanner Madison Basophils/100 WBC (Bld) 0.7 % Normal 0.2-2.0 [facility] Comment on above: Performed By: #### C BC ####[facility] [address] [place] [address]Dr. Tanner Madison EO # 0.1 103/ul Normal 0.0-0.7 [facility] Comment on above: Performed By: #### C BC ####[facility] [address] [place], [place] [address]Dr. Tanner Madison Eosinophils/100 WBC (Bld) 1.5 % Normal 0.9-7.0 [facility] Comment on above: Performed By: #### C BC ####[facility] [address] [place], [place] [address]Dr. Tanner Madison Erythrocyte distribution width (RBC) [Ratio] 13.2 % Normal 11.0-15.0 [facility] Comment on above: Performed By: #### C BC ####[facility] [address] [place], [place] [address]Dr. Tanner Madison Hematocrit (Bld) [Volume fraction] 34.1 % Critically low 36.0-48.0 [facility] Comment on above: Performed By: #### C BC ####[facility] [address] [place] [id number]. Tanner Madison Hemoglobin (Bld) [Mass/Vol] 11.7 g/dL Critically low 12.0-16.0 [facility] Comment on above: Performed By: #### C BC ####[facility] [address] [place] [id number]. Tanner Madison IG # 0.02 10e3/ul Normal 0.00-0.03 [facility] Comment on above: Performed By: #### C BC ####[facility] [address] [place] [id number]. Tanner Madison IG % 0.4 % Normal 0.0-0.5 [facility] Comment on above: Performed By: #### C BC ####[facility] [address] [place] [address]Dr. Tanner Madison LYMPH # 1.2 103/ul Normal 1.2-3.8 [facility] Comment on above: Performed By: #### C BC ####[facility] [address] [place] [id number]. Tanner Madison Lymphocytes/100 WBC (Bld) 25.6 % Normal 20.5-60.0 [facility] Comment on above: Performed By: #### C BC ####[facility] [address] [place] [id number]. Tanner Madison MANUAL DIFF REQ NO Normal [facility] Comment on above: Performed By: #### C BC ####[facility] [address] [place] [id number]. Tanner Madison MCH (RBC) [Entitic mass] 30.9 pg Normal 26.7-34.0 [facility] Comment on above: Performed By: #### C BC ####[facility] [address] [place] [id number]. Tanner Madison MCHC (RBC) [Mass/Vol] 34.3 g/dL Normal 29.9-35.2 [facility] Comment on above: Performed By: #### C BC ####[facility] [address] [place] [id number]. Tanner Madison MCV (RBC) [Entitic vol] 90.0 fL Normal 81.0-99.0 [facility] Comment on above: Performed By: #### C BC ####[facility] [address] [place] [id number]. Tanner Madison MONO # 0.4 103/ul Normal 0.3-0.8 [facility] Comment on above: Performed By: #### C BC ####[facility] [address] [place], [place] [address]Dr. Tanner Madison Monocytes/100 WBC (Bld) 7.6 % Normal 1.7-12.0 [facility] Comment on above: Performed By: #### C BC ####[facility] [address] [place], [place] [address]Dr. Tanner Madison NEUT # 3.0 103/ul Normal 1.4-6.5 [facility] Comment on above: Performed By: #### C BC ####[facility] [address] [place], [place] [address]Dr. Tanner Madison Neutrophils/100 WBC (Bld) 64.2 % Normal 43.0-75.0 [facility] Comment on above: Performed By: #### C BC ####[facility] [address] [place], [place] [address]Dr. Tanner Madison Platelet mean volume (Bld) [Entitic vol] 8.5 fL Critically low 9.5-13.5 [facility] Comment on above: Performed By: #### C BC ####[facility] [address] [place], [place] [address]Dr. Tanner Madison PLT 269 103/ul Normal 150-450 [facility] Comment on above: Performed By: #### C BC ####[facility] [address] [place], [place] [address]Dr. Tanner Madison RBC 3.79 106/ul Critically low 4.20-5.[address] [facility] Comment on above: Performed By: #### C BC ####[facility] [address] [place], [place] [address]BtDr. Tanner Madison WBC 4.6 103/ul Normal 4.0-11.0 [facility] Comment on above: Performed By: #### C BC ####[facility] [address] [place], [place] [address]ZrAryan Madison MG MAMM SCREEN 3D VIJAYA CADon 03-08-2022 MG MAMM SCREEN 3D VIJAYA CAD Patient: KIMBERLY WHITE Exam Date: 03/08/2022 : 1950 Gender:F Ordering : DR KAR MOTA D.O. Admission #: [id number] Family : Order #: [id number] CLICK HERE TO VIEW EXAM RADIOLOGY REPORT [...] breast cancer at age 48. LOCATION: [facility] BREAST COMPOSITION: Extremely dense, which lowers [...] LUMP SHOULD BE BIOPSIED. Dictated by: Jeff Fregoos MD on 03/08/2022 at 12:16 Approved by: Jeff Fregoso MD on 03/08/2022 at 12:18 Normal [facility] PROF CHEM 8 (BAS METB)on Anion gap [Moles/Vol] 11.0 mmol/L Normal [facility] Comment on above: Performed By: #### T SH, BMP #### [facility] [address] [place], [place] [address] Dr. Tanner Madison Calcium [Mass/Vol] 9.5 mg/dL Normal 8.5-10.1 [facility] Comment on above: Performed By: #### T SH, BMP #### [facility] [address] [place] [address] [address] Tanner Madison Chloride [Moles/Vol] 103 mmol/L Normal 98-107 [facility] Comment on above: Performed By: #### T SH, BMP #### [facility] [address] [place] [address] [address] Tanner Madison CO2 [Moles/Vol] 30.1 mmol/L Normal 21.0-32.0 [facility] Comment on above: Performed By: #### T SH, BMP #### [facility] [address] [place] [address] [address] Tanner Madison Creatinine [Mass/Vol] 0.98 mg/dL Normal 0.55-1.02 [facility] Comment on above: Performed By: #### T SH, BMP #### [facility] [address] [place] [address] [address] Tanner Madison EGFR-AF SAMOAN >60 Normal >=60 [facility] Comment on above: Performed By: #### T SH, BMP #### [facility] [address] [place] [address] [address] Tanner Madison EGFR-NON AF SAMOAN 56 mL/min/1.73m2 Critically low >=60 [facility] Comment on above: Performed By: #### T SH, BMP #### [facility] [address] [place] [address] [address] Tanner Madison Glucose [Mass/Vol] 91 mg/dL Normal 74-106 [facility] [place] [facility] Comment on above: Performed By: #### T SH, BMP #### [facility] [address] [place] [address] [address] Tanner Madison Potassium [Moles/Vol] 4.1 mmol/L Normal 3.5-5.1 [facility] Comment on above: Performed By: #### T SH, BMP #### [facility] [address] [place] [address] [address] Tanner Madison Sodium [Moles/Vol] 140 mmol/L Normal 136-145 [facility] Comment on above: Performed By: #### T SH, BMP #### [facility] [address] [place] [address] [address] Tanner Madison Urea nitrogen [Mass/Vol] 14.0 mg/dL Normal 7.0-18.0 [facility] Comment on above: Performed By: #### T SH, BMP #### [facility] [address] [place] [address] [address] Tanner Madison Urea nitrogen/Creatinine [Mass ratio] 14.3 mg/mg Normal [facility] Comment on above: Performed By: #### T TYRA, BMP #### [facility] [address] [place] [address] Dr. Tanner Madison TSHon 03-08-2022 TSH 2.659 uIU/mL Normal 0.358-3.740 [facility] Comment on above: Performed By: #### T TYRA, BMP #### [facility] [address] [place] [address] Dr. Tanner Madison VITAMIN D 25 OHon 03-08-2022 VIT D 25-OH 63.4 ng/mL Normal [facility] Comment on above: Performed By: #### V ITAD ####[facility] [address] [place] [address]Dr. Tanner Madison VIT D RANGES SEE BELOW Normal [facility] Comment on above: Result Comment: <20 ng/mL Vit D deficient 20 - <30 ng/mL Vit D insufficient 30 - 100 ng/mL Vit D sufficient >100 ng/mL Potential Toxicity Performed By: #### V ITAD ####[facility] [address] [place] [id number]. Tanner Madison XR DEXA BONE DENSITYon 03-08 [...] by: MARTA ELIAS Date: 2022-03-08 10:52 Normal [facility] 11-16-2021 [facility] Telephone (NIQ) KIMBERLY WHITE ([id number]) 1950 F Date Time Provider Department 11/16/21 [...] Status:Closed by RAYSA RICO on 11/23/21 Normal [facility] MRI LSPINE WO CONon 11-05-19 MRI [...] by: MARTA ELIAS Date: 2021-11-04 06:33 Normal [facility] MRI TSPINE WO CONon 11-04-19 MRI [...] JEFF FREGOSO Date: 2021-11-03 19:07 Normal [facility] VIT D 25-OH LABCORPon 2021 Vitamin D, 25-Hydroxy 69.8 ng/mL Normal 30.0-100.0 [facility] Comment on above: Result Comment: Negar min D deficiency has been defined by the [place] of [employer] and an Endocrine Society practice guideline as a level of serum 25-OH vitamin D less than 20 ng/mL (1,2). The Endocrine Society went on to further define vitamin D insufficiency as a level between 21 and 29 ng/mL (2). 1. IOM ([place] of [employer]). 2010. Dietary reference intakes for calcium and D. [place]: The National Academies Press. 2. Mikal MF, Jayy NC, Felisa-Ras MACHADO, et al. Evaluation, treatment, and prevention of vitamin D deficiency: an Endocrine Society clinical practice guideline. JCEM. 2010; 96(7):1911-30. Performed By: #### V ITADLC #### [facility] [address] [place] [address] Dr. Tanner Madison CBC AUTO DIFFon 10-28-2021 BASO # 0.0 103/ul Normal 0.0-0.1 [facility] Comment on above: Performed By: #### C BC #### [facility] [address] [place] [address] [address] Tanner Madison Basophils/100 WBC (Bld) 0.6 % Normal 0.2-2.0 [facility] Comment on above: Performed By: #### C BC #### [facility] [address] [place] [address] [address] Tanner Madison EO # 0.1 103/ul Normal 0.0-0.7 [facility] Comment on above: Performed By: #### C BC #### [facility] [address] [place] [address] Dr. Tanner Madison Eosinophils/100 WBC (Bld) 1.1 % Normal 0.9-7.0 [facility] Comment on above: Performed By: #### C BC #### [facility] [address] [place] [address] Dr. Tanner Madison Erythrocyte distribution width (RBC) [Ratio] 13.5 % Normal 11.0-15.0 [facility] Comment on above: Performed By: #### C BC #### [facility] [address] [place] [address] Dr. Tanner Madison Hematocrit (Bld) [Volume fraction] 31.7 % Critically low 36.0-48.0 [facility] Comment on above: Performed By: #### C BC #### [facility] [address] [place] [address] Dr. Tanner Madison Hemoglobin (Bld) [Mass/Vol] 10.8 g/dL Critically low 12.0-16.0 [facility] Comment on above: Performed By: #### C BC #### [facility] [address] [place] [address] Dr. Tanner Madison IG # 0.01 10e3/ul Normal 0.00-0.03 [facility] Comment on above: Performed By: #### C BC #### [facility] [address] [place] [address] Dr. Tanner Madison IG % 0.2 % Normal 0.0-0.5 [facility] Comment on above: Performed By: #### C BC #### [facility] [address] [place] [address] Dr. Tanner Madison LYMPH # 1.3 103/ul Normal 1.2-3.8 [facility] Comment on above: Performed By: #### C BC #### [facility] [address] [place] [address] Dr. Tanner Madison Lymphocytes/100 WBC (Bld) 24.0 % Normal 20.5-60.0 [facility] Comment on above: Performed By: #### C BC #### [facility] [address] [place] [address] Dr. Tanner Madison MANUAL DIFF REQ NO Normal [facility] Comment on above: Performed By: #### C BC #### [facility] [address] [place] [address] Dr. Tanner Madison MCH (RBC) [Entitic mass] 31.0 pg Normal 26.7-34.0 [facility] Comment on above: Performed By: #### C BC #### [facility] [address] [place] [address] Dr. Tanner Madison MCHC (RBC) [Mass/Vol] 34.1 g/dL Normal 29.9-35.2 [facility] Comment on above: Performed By: #### C BC #### [facility] [address] [place] [address] Dr. Tanner Madison MCV (RBC) [Entitic vol] 91.1 fL Normal 81.0-99.0 [facility] Comment on above: Performed By: #### C BC #### [facility] [address] [place] [address] Dr. Tanner Madison MONO # 0.5 103/ul Normal 0.3-0.8 [facility] Comment on above: Performed By: #### C BC #### [facility] [address] [place] [address] Dr. Tanner Madison Monocytes/100 WBC (Bld) 8.3 % Normal 1.7-12.0 [facility] Comment on above: Performed By: #### C BC #### [facility] [address] [place] [address] Dr. Tanner Madison NEUT # 3.6 103/ul Normal 1.4-6.5 [facility] Comment on above: Performed By: #### C BC #### [facility] [address] [place] [address] Dr. Tanner Madison Neutrophils/100 WBC (Bld) 65.8 % Normal 43.0-75.0 [facility] Comment on above: Performed By: #### C BC #### [facility] [address] [address] [address] Tanner Madison Platelet mean volume (Bld) [Entitic vol] 8.6 fL Critically low 9.5-13.5 [facility] Comment on above: Performed By: #### C BC #### [facility] [address] [address] [address] Tanner Madison PLT 234 103/ul Normal 150-450 [facility] Comment on above: Performed By: #### C BC #### [facility] [address] [address] [address] Tanner Madison RBC 3.48 106/ul Critically low 4.20-5.40 [facility] Comment on above: Performed By: #### C BC #### [facility] [address] [address] [address] Tanner Madison WBC 5.4 103/ul Normal 4.0-11.0 [facility] Comment on above: Performed By: #### C BC #### [facility] [address] [address] [address] Tanner Madison PROF CHEM 8 (BAS METB)on Anion gap [Moles/Vol] 12.7 mmol/L Normal [facility] Comment on above: Performed By: #### B MP ####[facility] [address] [address]DrAryan Madison Calcium [Mass/Vol] 9.2 mg/dL Normal 8.5-10.[address] [facility] Comment on above: Performed By: #### B MP ####[facility] [address] [address]Dr. Tanner Madison Chloride [Moles/Vol] 102 mmol/L Normal 98-107 [facility] Comment on above: Performed By: #### B MP ####[facility] [address] [address]Dr. Tanner Madison CO2 [Moles/Vol] 30.4 mmol/L Normal 21.0-32.0 [facility] Comment on above: Performed By: #### B MP ####[facility] [address] [address]Dr. Tanner Madison Creatinine [Mass/Vol] 1.07 mg/dL Critically high 0.55-1.02 [facility] Comment on above: Performed By: #### B MP ####[facility] [address] [address]Dr. Tanner Los EGFR-AF SAMOAN >60 Normal >=60 [facility] Comment on above: Performed By: #### B MP ####[facility] [address] [id number]. Tanner Los EGFR-NON AF SAMOAN 50 mL/min/1.73m2 Critically low >=60 [facility] Comment on above: Performed By: #### B MP ####[facility] [address] [address]Dr. Virginiasunita Los Glucose [Mass/Vol] 99 mg/dL Normal 74-[address] [facility] Comment on above: Performed By: #### B MP ####[facility] [address] [address]Dr. Tanner Los Potassium [Moles/Vol] 4.1 mmol/L Normal 3.5-5.1 [facility] Comment on above: Performed By: #### B MP ####[facility] [address] [address]Dr. Virginiasunita Los Sodium [Moles/Vol] 141 mmol/L Normal 136-145 [facility] Comment on above: Performed By: #### B MP ####[facility] [address] [address]Dr. Tanner Madison Urea nitrogen [Mass/Vol] 16.0 mg/dL Normal 7.0-18.0 [facility] Comment on above: Performed By: #### B MP ####[facility] [address] [address]Dr. Tanner Madison Urea nitrogen/Creatinine [Mass ratio] 15.0 mg/mg Normal [facility] Comment on above: Performed By: #### B MP ####[facility] [address] [place], [place] [address]Rb. Tanner Madison LASHELLPATTIEcedric 10-15-2021 CNOV Office Visit (SPNMMN) KIMBERLY WHITE ([id number]) 1950 F Date Time Provider Department 10/15/21 2:00 PM ANCELMO SANDOVAL SPVTMN During your visit today, we recorded the [...] short period (more content not included)... Normal [facility] XR SCOLIOSIS 2V PA STAND/LAT on [...] abnormality. IMPRESSION: Thoracolumbar scoliosis and degenerative changes. 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 Transcribe Date/Time: Oct 15 2021 2:52P Dictated by : CHETNA HERNANDEZ MD This examination was interpreted and the report reviewed and electronically signed by: CHETNA HERNANDEZ MD on Oct 15 2021 2:54PM EST [id number] CN Normal [facility] XR SCOLIOSIS PA STAND/LAT 2V on 10-15-2021 [facility] 08-27-2021 L Specimen: [id number] Received: 08/27/21 Status: VINOD Norristevin Num: [id number] Spec Type: Surgical Subm Dr: Will Ma MD Tissues: A Gastric Biopsy (GASTRIC BXS) Procedures: HE Stain/2, Gross/Micro L4 Patient Age/Sex Location Account Attending Physician Kimberly White 70/F [id number] Will Ma MD SPEC NUM: [id number] RECD: 08/27/21 STATUS: VINOD NORRISTevin NUM: [id number] JHONNY: 08/27/21- [facility] DR: Will Ma MD ENTERED: 08/27/21 [...] microscopic findings support the above pathologic diagnosis. [id number] Specimen: [id number] Received: 08/27/21 Status: VINOD Garcia Num: [id number] Spec Type: Surgical Subm Dr: Will Ma MD Tissues: A Gastric Biopsy (GASTRIC BXS) Procedures: HE Stain/2, Gross/Micro L4 Patient: ChristopherKimberly L [id number] (Continued) Signed (signature on file) Nisreen Marquez MD 08/31/21 1659 Normal [facility] SARS-CoV-2 (COVID-19) RNA JEFFRY+probe Ql (Unsp spec) Negative Normal Negative [facility] Comment on above: Order Comment: Healt hcare Worker?: N Result Comment: Testing for SARS-CoV-2 by RT-PCR This test was developed and its performance characteristics determined by [employer] ([employer]) and validated at the [facility] [...] is terminated or revoked sooner. PERFORMED BY: [address] [place] [id number] PATHOLOGIST RESEARCH HYDROLOGIST NISREEN MARQUEZ M.D. Performed By: #### C OVID 19 [facility] #### [address] Vital Signs Date Time Vital Sign Value Performing Clinician Facility 09-16-2024 09:23-0400 Body height 160.02 cm Kar Ball DO Work Phone: [facility] 09-16-2024 09:23-0400 Body mass index (BMI) [Ratio] 19 kg/m2 Kar Ball DO Work Phone: [facility] 09-16-2024 09:23-0400 Body weight 48.7 kg Kar Ball DO Work Phone: [facility] 09-16-2024 09:23-0400 Diastolic blood pressure 68 mm[Hg] Kar Ball DO Work Phone: [facility] 09-16-2024 09:23-0400 Heart rate 71 /min Kar Ball DO Work Phone: [facility] 09-16-2024 09:23-0400 Respiratory rate 12 /min Kar Ball DO Work Phone: [facility] 09-16-2024 09:23-0400 Systolic blood pressure 139 mm[Hg] Kar Ball DO Work Phone: [facility] 05-08-2024 08:59-0400 Body height 160.02 cm [facility] 05-08-2024 08:59-0400 Body mass index (BMI) [Ratio] 20.2 kg/m2 [facility] 05-08-2024 08:59-0400 Body weight 51.93 kg [facility] 05-08-2024 08:59-0400 Diastolic blood pressure 89 mm[Hg] [facility] 05-08-2024 08:59-0400 Heart rate 70 /min [facility] 05-08-2024 08:59-0400 Respiratory rate 12 /min [facility] 05-08-2024 08:59-0400 Systolic blood pressure 139 mm[Hg] [facility] 08-03-2023 10:08-0400 Body height 160.02 cm [facility] 08-03-2023 10:08-0400 Body mass index (BMI) [Ratio] 19.7 kg/m2 [facility] 08-03-2023 10:08-0400 Body weight 50.57 kg [facility] 08-03-2023 10:08-0400 Diastolic blood pressure 81 mm[Hg] [facility] 08-03-2023 10:08-0400 Heart rate 70 /min [facility] 08-03-2023 10:08-0400 Respiratory rate 12 /min [facility] 08-03-2023 10:08-0400 Systolic blood pressure 150 mm[Hg] [facility] 09-26-2022 10:30-0400 Body height 160.02 cm Kar Ball Other [facility] [employer] Other 09-26-2022 10:30-0400 Body mass index (BMI) [Ratio] 19.31 kg/m2 Kar Ball Other [facility] [employer] Other 09-26-2022 10:30-0400 Body weight 49.44 kg Kar Ball Other [facility] [employer] Other 09-26-2022 10:30-0400 Diastolic blood pressure 75 mm[Hg] Kar Ball Other [facility] [employer] Other 09-26-2022 10:30-0400 Respiratory rate 12 /min Kar Ball Other [facility] [employer] Other 09-26-2022 10:30-0400 Systolic blood pressure 166 mm[Hg] Kar Ball Other [facility] [employer] Other 02-01-2022 10:22-0500 Body height 160 cm Jose A Hong MD Work Phone: [facility] 02-01-2022 10:22-0500 Body weight 49.9 kg Jose A Hong MD Work Phone: [facility] 02-01-2022 10:22-0500 Diastolic blood pressure 76 mm[Hg] Jose A Hong MD Work Phone: [facility] 02-01-2022 10:22-0500 Heart rate 71 /min Jose A Hong MD Work Phone: [facility] 02-01-2022 10:22-0500 Respiratory rate 14 /min Jose A Hong MD Work Phone: [facility] 02-01-2022 10:22-0500 SaO2% (BldA) [Mass fraction] 98 % Jose A Hong MD Work Phone: [facility] 02-01-2022 10:22-0500 Systolic blood pressure 168 mm[Hg] Jose A Hong MD Work Phone: [facility] Encounters Encounter Date Encounter Type Care Provider Facility Start: 09-16-2024 End: 09-16-2024 ambulatory Kar Mota DO Work Phone: [facility] Work Phone: Start: 09-16-2024 End: 09-16-2024 Patient encounter procedure Kar Mota DO -[facility] Work Phone: Start: 08-12-2024 End: 08-12-2024 Patient encounter procedure Kar Mota DO -[facility] Work Phone: Start: 07-11-2024 End: 07-11-2024 ambulatory [facility] Work Phone: Start: 07-11-2024 End: 07-11-2024 Patient encounter procedure [facility] Work Phone: Start: 06-07-2024 End: 06-07-2024 ambulatory [facility] Work Phone: Start: 06-07-2024 End: 06-07-2024 Patient encounter procedure [facility] Work Phone: Start: 05-08-2024 End: 05-08-2024 ambulatory [facility] Work Phone: Start: 05-08-2024 End: 05-08-2024 [facility] encounter procedure [facility] Work Phone: Start: 05-03-2024 Non-patient / Non-visit [facility] Work Phone: Start: 04-08-2024 End: 04-08-2024 ambulatory [facility] Work Phone: Start: 04-08-2024 End: 04-08-2024 Patient encounter procedure [facility] Work Phone: Start: 03-07-2024 End: 03-07-2024 ambulatory [facility] Work Phone: Start: 03-07-2024 End: 03-07-2024 Patient encounter procedure [facility] Work Phone: Start: 02-29-2024 End: 02-29-2024 ambulatory [facility] Work Phone: Start: 02-29-2024 End: 02-29-2024 Patient encounter procedure [facility] Work Phone: Start: 02-22-2024 End: 02-22-2024 Patient encounter procedure [facility] Work Phone: Start: 02-19-2024 End: 02-19-2024 ambulatory Clifton Matthews MD Facility: [facility] Start: 02-15-2024 End: 02-15-2024 Patient encounter procedure [facility] Work Phone: Start: 02-09-2024 Non-patient / Non-visit [facility] Work Phone: Start: 12-15-2023 Non-patient / Non-visit [facility] Work Phone: Start: 11-16-2023 End: 11-16-2023 ambulatory [facility] Work Phone: Start: 11-16-2023 End: 11-16-2023 Patient encounter procedure [facility] Work Phone: Start: 08-03-2023 End: 08-03-2023 ambulatory [facility] Work Phone: Start: 08-03-2023 End: 08-03-2023 Patient encounter procedure [facility] Work Phone: Start: 07-19-2023 Non-patient / Non-visit [facility] Work Phone: Start: 03-27-2023 End: 03-27-2023 ambulatory Kar Mota Other [employer] Other Start: 03-27-2023 Office outpatient vi sit 15 minutes Kar Mota [facility] Start: 03-27-2023 Telephone encounter Kar Mota [facility] Start: 01-23-2023 End: 01-23-2023 ambulatory Kar Mota Other [employer] Other Start: 01-23-2023 Telephone encounter Kar Mota [facility] Start: 11-29-2022 End: 11-29-2022 ambulatory Kar Mota Other [employer] Other Start: 11-29-2022 Telephone encounter Kar Ball [facility] Start: 11-28-2022 End: 11-28-2022 ambulatory Kar Ball Other [employer] Other Start: 11-28-2022 Nursing evaluation o f patient and report Kar Mota [facility] Start: 11-28-2022 Telephone encounter Kar Ball [facility] Start: 10-04-2022 End: 10-04-2022 ambulatory Kar Ball Other [employer] Other Start: 10-04-2022 Telephone encounter Kar Ball [facility] Start: 09-26-2022 End: 09-26-2022 ambulatory Kar Mota Other [employer] Other Start: 09-26-2022 Office outpatient vi sit 15 minutes Kar Mota [facility] Start: 07-14-[address] KATHRINE MARCIAL Facil ity:[facility] Start: 05-02-2022 End: 05-03-[address] KATHRINE MARCIAL Facility:[facility] Start: 03-08-2022 End: 03-09-[address] KATHRINE MARCIAL Facility:[facility] Start: 03-02-2022 End: 03-03-[address] KATHRINE MARCIAL Facility:[facility] Start: 02-15-2022 Adult health examination Chris Mota Other [employer] Other Start: 02-01-2022 End: 02-01-2022 ambulatory ANCELMO SANDOVAL Facility:[facility] Start: 02-01-2022 End: 02-01-2022 Patient encounter procedure Jose A Hong MD Work Phone: [facility] Comment on above: Encounter for screen ing [...] Start: 10-15-2021 End: 10-15-2021 ambulatory ANCELMO SANDOVAL Facility:[facility] Start: 10-15-2021 End: 10-15-2021 Subsequent hospital [...] 02-27-2022 ADVANCE DIRECTIVE DISCUSSION ADVANCE DIRECTIVE DISCUSSION [facility] Start: 02-27-2022 DEPRESSION ASSESSMENT DEPRESSION ASS ESSMENT [facility] Start: 10-28-2021 Influenza vaccination INFLUENZA (#1) [facility] Start: 07-25-2021 COVID-19 VACCINE (5 - Booster for Pfizer series) COVID-19 VACCINE (5 - Booster for Pfizer series) [facility] Start: 02-27-2021 ADVANCE DIRECTIVE DISCUSSION ADVANCE DIRECTIVE DISCUSSION [facility] Start: 02-27-2021 DEPRESSION ASSESSMENT DEPRESSION ASS ESSMENT [facility] Start: 2013 BONE DENSITY BONE DENSITY [facility] Start: 2013 PNEUMOCOCCAL: 65+ (1 - PCV) PNEUMOCOCCAL: 65+ (1 - PCV) [facility] Start: 1998 SHINGRIX VACCINE (1 of 2) SHINGRIX VACCINE (1 of 2) [facility] Start: 1993 COLOGUARD (FIT-DNA) COLOGUARD (FIT-D NA) [facility] Start: 1993 Colonoscopy COLONOSCOPY [facility] Start: 1993 COLORECTAL CANCER SCREENING COLORECTAL CANCER SCREENING [facility] Start: [address] COLONOGRAPHY [facility] Start: 1993 DIABETES SCREEN DIABETES SCREEN [facility] Start: 1993 FECAL OCCULT BLOOD FECAL OCCULT BLOO D [facility] Start: 1993 LIPID SCREEN LIPID SCREEN [facility] Start: 1993 SIGMOIDOSCOPY SIGMOIDOSCOPY [facility] Start: 1988 Mammography MAMMOGRAM [facility] Start: 11-13-1967 Urine microalbumin profile DTAP,TDAP,TD (1 - Tdap) [facility] Start: 1966 HEPATITIS C SCREENING HEPATITIS C SC CIERA [facility] Start: 1960 Adult depression screening assessment DEPRESSION SCREENING [facility] Comprehensive metabo lic 1999 panel - Serum or Plasma [facility] Comprehensive metabo lic 1999 panel - Serum or Plasma [facility] DXA Skeletal system.axial Views for bone density [facility] End: 03-03-2023 DXA-AXIAL SKELETON DXA-AXIAL SKELETON Radiology Routine Encounter for screening for osteoporosis 1 Occurrences starting 02/01/2022 until 03/03/2023 [facility] Work Phone: Comment on above: 1 Occurrences starti ng 02/01/2022 until 03/03/2023 MG Breast - bilatera l Screening [facility] Immunizations Immunization Date Immunization Notes Care Provider Fa cility 11-16-2023 influenza, high dose seasonal, preservative-free [facility] 11-16-2023 influenza, live, intranasal, quadrivalent [facility] 11-28-2022 influenza virus vaccine, unspecified formulation [facility] 11-28-2022 influenza, high dose seasonal, preservative-free Kar Mota Other [facility] [employer] Other 11-26-2021 influenza virus vaccine, split virus (incl. purified surface antigen) Kar Mota Other [facility] [employer] Other 11-26-2021 influenza virus vaccine, unspecified formulation [facility] 05-30-2021 COVID-19 Vaccine Pfi zer - Documentation Purposes Only Kar Mota Other [facility] 12-04-2020 influenza virus vaccine, split virus (incl. purified surface antigen) Kar Mota Other [facility] [employer] Other 12-04-2020 influenza virus vaccine, unspecified formulation [facility] 11-22-2020 COVID-19 Vaccine Pfi zer - Documentation Purposes Only Kar Lashae Other [facility] 04-18-2020 COVID-19 Vaccine Pfi zer - Documentation Purposes Only Kar Lashae Other [facility] 03-28-2020 COVID-19 mRNA, Comirnaty (Pfizer) [facility] 03-28-2020 COVID-19 Vaccine Moderna - Documentation Purposes Only Kar Lashae Other [facility] 11-07-2019 influenza virus vaccine, split virus (incl. purified surface antigen) Kar Lashae Other [employer] Other 11-07-2019 influenza virus vaccine, unspecified formulation [facility] 11-26-2018 influenza virus vaccine, split virus (incl. purified surface antigen) Kar Lashae Other [employer] Other 11-26-2018 influenza virus vaccine, unspecified formulation [facility] 12-07-2017 influenza virus vaccine, split virus (incl. purified surface antigen) Kar Lashae Other [employer] Other 12-07-2017 influenza virus vaccine, unspecified formulation [facility] 12-19-2016 influenza virus vaccine, split virus (incl. purified surface antigen) Kar Lashae Other [employer] Other 12-19-2016 influenza virus vaccine, unspecified formulation [facility] 12-01-2015 influenza virus vaccine, split virus (incl. purified surface antigen) Kar Mota Other [employer] Other 12-01-2015 influenza virus vaccine, unspecified formulation [facility] 05-15-2015 pneumococcal conjuga te vaccine, 13 valent Kar Mota Other [facility] 12-10-2014 influenza virus vaccine, split virus (incl. purified surface antigen) Kar Mota Other [employer] Other 12-10-2014 influenza virus vaccine, unspecified formulation [...] [facility] Center Payers Date Payer Category Payer Private Health Insurance 2017 Medicare HU[employer]NA MEDICARE [employer] MEDICARE PPO [id number] 2017-Present [id number] [place] [address] PPO [id number] 1959 Medicare [id number] 1950 Unknown [id number] [id number] .59 1950 Unknown [id number] [id number] .59 1950 Unknown [id number] [id number] .59 1950 Unknown [id number] 2.16.840.1.408104.3.579.2 .59 1950 Unknown [id number] 2.16.840.1.437686.3.579.2 .59 1950 Unknown [id number] 2.16.840.1.937772.3.579.2 .59 1950 Unknown [id number] 2.16.840.1.176312.3.579.2 .59 1950 Unknown [id number] 2.16.840.1.461255.3.579.2 .593 1950 Unknown [id number] 2.16.840.1.384371.3.579.2 .593 1950 Unknown [id number] 2.16.840.1.861719.3.579.2 .593 1950 Unknown [id number] 2.16.840.1.222011.3.579.2 .593 1950 Unknown [id number] [id number] .196 Self-pay Self Pay [id number] Social History Date Type Detail Facility Start: 08-27-2021 End: 10-15-2021 Tobacco smoking status NHIS Ex-smoker [facility] History of tobacco use Current smoker [facility] History of tobacco use Cigarette Smoker [facility] Start: 10-15-2021 Tobacco use and exposure Smokeless tobacco non-user [facility] Start: 10-15-2021 End: 02-01-2022 Alcohol intake Lifetime non-drinker (finding) [facility] Start: 1950 Sex Assigned At Not on file C [facility] Start: 10-05-2021 End: 10-15-2021 Exposure to SARS-CoV-2 (event) Not sure [facility] Sex Assigned At Sex Assigned At [facility] [employer] Other Start: 1950 Sex Assigned At Female F [facility] Start: 02-29-2024 End: 07-11-2024 Sex Female (finding) [facility] Clinical Notes 10-15-2021 to 05-08-2024 Note Date & Type Note Facility 05-08-2024 Evaluation note Diagnosis Onset Date Resolution Carpal tunnel syndrome on both sides acute May 08, 2024 8:54am Chronic kidney disease acute [facility] 2024 8:54am Elevated BP without diagnosis of hypertension acute May 08, 2024 8:54am VALDEZ (generalized anxiety disorder) acute May 08, 2024 8:54am GERD (gastroesophageal reflux disease) acute May 08, 2024 8:54am 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 April 8:54am Pernicious anemia acute April 272024 8:54am [facility] Work Phone: 1(483) 968-516303-12-2025 Evaluation note* Diagnosis Onset Date Resolution Status Admit Date Carpal tunnel syndrome on alberto th sides acute May 08, 2024 8:54am Chronic kidney disease acute [place] [facility] 2024 8:54am Elevated BP without diagnosi s of hypertension acute May 08, 2024 8:54am VALDEZ (generalized anxiety disorder) acute May 08, 2024 8:54am GERD (gastroesophageal reflu x disease) acute May 08, 2024 8:54am 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 April 8:54am Pernicious anemia acute April 272024 8:54am Pernicious anemia acute May 282024 8:51am [facility] Work Phone: 1(414) 964-779701-29-2024 Evaluation note* Encounter Date Diagnosis Assessment Notes [...] increased frequency > 3/24 hours and watery [facility] Other 11-27-2023 Evaluation note* Encounter Date Diagnosis Assessment Notes Treatment Notes Treatment Clinical Notes Dec, Pain in thoracic spine (ICD-10 - M54.6) [facility] 10-02-2023 Evaluation note* Encounter Date Diagnosis Assessment Notes Treatment Notes Treatment Clinical Notes Nov, Lumbar spondylosis (ICD-10 - M47.816) [facility] Other 07-31-2023 Evaluation note* Encounter Date Diagnosis [...] but may cause increased bloating. [employer] Other 07-31-2023 Evaluation note* Encounter Date Diagnosis [...] but may cause increased bloating. [facility] [employer] Other 12-06-2022 NoteHNO ID: [id number] Author: Jose A Hong MD Service: ? [...] information obtained and documented by the physician behavioral health assistant. I examined the patient and evaluated [...] when sitting. No partha (more content not included)...[facility]12-06-2022 Instructions* Patient Instructions* Ancelmo Sandoval PA-C [...] your usual activities immediately. [facility] History of Present illness Narrative* Jose [...] information obtained and documented by the physician behavioral health assistant. I examined the patient and evaluated [...] Past Histories independently gathered by the clinical application support analyst and the remaining scribed note accurately describes my personal service to the patient. Jose A Hong MD documented [facility] this encounterC[facility]22 NoteCONSULTATION CONSULTATION DATE: 01/18/2022 CHIEF COMPLAINT: [...] appointment to [facility] in the near future. PHYSICAL EXAM: [...] We shall await the patient's evaluation with [facility]. Subsequent to that, we will make [...] this in February, given her 's illness.[facility] [id number] Note CONSULTATION PROCEDURE DATE: 12/21/2021 CHIEF COMPLAINT: [...] has responded well to this treatment. [facility] [id number] NoteCONSULTATION CONSULTATION DATE: 11/30/2021 CHIEF COMPLAINT: Low [...] annually. The patient has been seen by [facility] with regards to the possibility [...] was encouraged to maintain the communication with [facility] to see whether other options are available. We will repeat the testosterone cypionate on her return visit. The patient understands and would like to proceed. CC: Kathrine Marcial M.D.[facility] [id number] NoteCONSULTATION PROCEDURE DATE: 11/23/2021 PREOPERATIVE DIAGNOSIS: Lumbar [...] try to attain a neutral posture laterally.[facility] [id number] NoteCONSULTATION CONSULTATION DATE: 11/23/2021 CHIEF COMPLAINT: Left leg pain, low back pain. HISTORY OF PRESENT ILLNESS: This is a very pleasant, 71-year-old female who is known to the [facility]. The patient has an MRI of her lumbar spine, CT of the thoracic and CT of the lumbar spine. The patient has severe rotoscoliosis. The patient was seen at the [facility]. The patient states she is [...] like to proceed. CC: Kathrine Marcial M.D.[facility] [id number] Miscellaneous Notes* Telephone Encounter - Cesilia Adler - 11/16/2021 1:46 PM EDT Received the following record(s) via fax. -MRI tspine wo(report) Date 11/03/21 Record(s) scanned into pt's chart. Cesilia Adler Images requested documented in this encounterC[facility]-07-2022 NotePROCEDURE: CT TSPINE WO CON, CT [...] Electronically authenticated by: JEFF FREGOSO Date: 2021-11-03 18:57[facility]09-07-2022 NotePROCEDURE: CT TSPINE WO CON, CT [...] Electronically authenticated by: JEFF FREGOSO Date: 2021-11-03 18:57[facility]08-19-2022 NoteHNO ID: [id number] Author: Ancelmo Sandoval PA-C Service: ? Author Type: Physician Traveling Clerk Type: Progress Notes Filed: 10/18/2021 8:52 AM [...] neuromuscular referral to (more content not included)... [facility] note* Diagnosis Scoliosis of thoracolumbar spine, unspecified scoliosis type documented in this encounter [facility] note* Diagnosis Encounter for screening for osteoporosis- Primary Special screening for osteoporosis documented in this encounter [facility] noteNo InformationNort HomeMe.ru Other Evaluation note* Diagnosis Onset Date Resolution Status Chronic kidney disease acute Elevated BP without diagnosis of hypertension acute VALDEZ (generalized anxiety disorder) acute GERD (gastroesophageal reflux disease) acute 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 Medicare annual wellness visit, subsequent noneactive Screening mammogram for breast cancer noneactive [facility] Work Phone: Evaluation noteNo assessment information available [facility] Work Phone: Evaluotzgf note* Diagnosis Onset Date Resolution Status Admit Date Carpal tunnel syndrome on alberto th sides acute May 08, 2024 8:54am Chronic kidney disease acute [facility]2024 8:54am Elevated BP without diagnosi s of hypertension acute May 08, 2024 8:54am VALDEZ (generalized anxiety disorder) acute May 08, 2024 8:54am GERD (gastroesophageal reflu x disease) acute May 08, 2024 8:54am 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 April 8:54am Pernicious anemia acute April 272024 8:54am [facility] Work Phone: Evaluation note* Diagnosis [...] st cancer noneactive September 16, 2024 8:54am [facility] Work Phone: History general Narrative [...] Colonoscopy 2021 Hospitalization History SEE SURGICAL HX [facility] Other Reason for referral (narrative)* Diagnostic Procedure Only (Routine) - Closed Specialty Diagnoses / Procedures Referred By Mouna mclean Referred To Contact XR IMAGING Diagnoses Scoliosis of thoracolumbar spine, unspecified scoliosis type Procedures XR SCOLIOSIS PA STAND/LAT 2V RADEX ENTIR THRC LMBR CRV SAC SPI W/SKULL 2/3 Ancelmo Wild PA-C [address] [place] [address] Xr Imaging Referral ID Status Reason Start Date Expiration Date V isits Requested Visits Authorized [id number] Closed Auto-Generate d Referral 10/15/2021 11/14/2022 1 1 [facility] for referral (narrative)No reason for referral information availableTr[facility] Work Phone: Reason for visit Narrative* Diagnostic Procedure Only (Routine) - Closed Specialty Diagnoses / Procedures Referred By Mouna mclean Referred To Contact XR IMAGING Diagnoses Scoliosis of thoracolumbar spine, unspecified scoliosis type Procedures XR SCOLIOSIS PA STAND/LAT 2V RADEX ENTIR THRC LMBR CRV SAC SPI W/SKULL 2/3 Ancelmo Wild PA-C [address] [place] [address] Xr Imaging Referral ID Status Reason Start Date Expiration Date V isits Requested Visits Authorized [id number] Closed Auto-Generate d Referral 10/15/2021 11/14/2022 1 1 [facility] Summary Purpose Family History Relationship Condition [...] 08, 2024 8:54am GERD (gastroesophageal reflux disease) [facility] 2024 8:54am Kyphoscoliosis due to degeneration of [...] Date Carpal tunnel syndrome on both sides [facility] 2024 8:54am Chronic kidney disease May 08, 2024 8:54am Elevated BP without diagnosis of hyperte nsion May 08, 2024 8:54am VALDEZ (generalized anxiety disorder) May 08, 2024 8:54am GERD (gastroesophageal reflux disease) [facility] 2024 8:54am Kyphoscoliosis due to degeneration of [...] 2024 8:54am Screening mammogram for breast cancer [facility] 2024 8:54am Additional Source Comments INFORMATION SOURCE (unrecogn ized section and content) DATE CREATED AUTHOR 09/02/2021 [facility] DATE CREATED AUTHOR AUTHOR'S ORGANIZ ATION 03/07/2022 [facility] DATE CREATED AUTHOR AUTHOR'S ORGANIZ ATION 07/13/2022 [facility] DATE CREATED AUTHOR AUTHOR'S ORGANIZ ATION 02/23/2024 [facility] Source Comments (unrecognize d section and content) In the event this informatio n is protected by the Federal Confidentiality of Alcohol and Drug Abuse Patient Records regulations: The Federal rules restrict any use of the information to criminally investigate or prosecute any alcohol or drug abuse patient.[facility] HospitalIn the event this information is protected by the Federal Confidentiality of Alcohol and Drug Abuse Patient Records regulations: The Federal rules restrict any use of the information to criminally investigate or prosecute any alcohol or drug abuse patient.[facility] HospitalIn the event this information is protected by the Federal Confidentiality of Alcohol and Drug Abuse Patient Records regulations: The Federal rules restrict any use of the information to criminally investigate or prosecute any alcohol or drug abuse patient.[facility] Reason for Visit (unrecogniz ed section [...] BE BASED ON THE PRIMARY CLINICAL RECORDS. [facility] CenterInv[facility]. provides no warranty or guarantee of the accuracy or completeness of information in this document.
--- NOTE | 2024-10-09 08:54 | PM.CN ---
Consult Note: HPI Data of Consult Patient: known to practice within the last 3 years Consult date: 09/04/24 Requesting Physician: Hiwot Irving NP Primary Care Provider: Kar Mota DO Consult Narrative Reason for consult: low back and RLE pain Narrative: Courtney dougherty pleasant 73 year old female presents for evaluation of chronic low back pain secondary to scoliosis, lumbar degeneration, and lumbar stenosis. pt has failed to benefit from > 6 weeks of PT/HEP, heat, ice, tylenol, NSAIDs. utilizing nabumetone, tylenol, baclofen, gabapentin with mild relief. pain today 4-5/10 increasing to 10/10 with activity and mowing. reports improvement with forward flexion and sitting. prior right L3/4 L4/5 TFESI provided at least 50% improvement for 3 months, however we recently repeated on 09/30 and pt noting no improvement. cc:: CC: Hiwot Irving NP Review of Systems ROS Status of ROS 10 or more systems reviewed and unremarkable except as noted in history and below Musculoskeletal Reports: back pain PFSH PFSH Medical History Rheumatoid arthritis ?M06.9 - Rheumatoid arthritis, unspecified (ICD-10) Low back pain ?M54.50 - Low back pain, unspecified (ICD-10) Family history of psychiatric condition ?Z81.8 - Family history of other mental and behavioral disorders (ICD-10) Former smoker ?Z87.891 - Personal history of nicotine dependence (ICD-10) Surgical History History of dilatation and curettage ?Z98.890 - Other specified postprocedural states (ICD-10) Meds Home Medications and Allergies Home Medications ?Medication ?Instructions ?Recorded ?Confirmed ?Type acetaminophen 325 mg tablet (Aphen) 325 mg PO Q6H PRN pain 08/09/22 09/30/24 History quzflqd-[id number]-hiuxkmwhxqlw tab PO .QD 08/09/22 History 500 mg-200 unit-50 mg-1.2 mg tablet nabumetone 750 mg tablet 750 mg PO BID 08/09/22 09/30/24 History vitamins A,C,K-aqra-aebqfp 2,148 2 tab PO BID 08/09/22 09/30/24 History mcg-113 mg-45 mg-17.4 mg tablet (Eye Multivitamin) zoledronic acid 5 mg/100 mL in ea IV .YEARLY 08/09/22 History mannitol 5 %-water intravenous piggybck (Reclast) gabapentin 08/16/22 History baclofen 10 mg tablet 10 mg PO DAILY #30 tabs 11/02/22 09/30/24 Rx Allergies Allergy/AdvReac Type Severity Reaction Status Date / Time amoxicillin Allergy Hives Verified 09/30/24 07:47 nitrofurantoin (From Allergy Hives Verified 09/30/24 07:47 Macrobid) Sulfa (Sulfonamide Allergy Hives Verified 09/30/24 07:47 Antibiotics) Exam Constitutional Documenting provider has reviewed patient's vital signs: yes Common normals: no apparent distress, oriented x3, healthy appearing, alert and well nourished General appearance: cooperative HENMT Common normals: normocephalic, hearing grossly normal bilaterally and moist oral mucous membranes Head and scalp: normocephalic Eye Common normals: PERRL Pupil: PERRL Neck & C-Spine Common normals: full ROM General: normal visual inspection Chest Common normals: inspection of chest normal Respiratory Common normals: normal respiratory effort, no retractions and no use of accessory muscles Back & Pelvis Lumbar spine/lower back: ROM limited, pain with ROM and lumbar scoliosis present; straight leg raise negative right Other: sensation intact BLE strength 5/5 in BLE significant myofascial dystonia to thoracic/lumbar column secondary to scoliosis Extremity Common normals: normal to inspection and full ROM Neuro Common normals: oriented x3 Sensorium/orientation: alert Motor exam: no movement abnormalities noted Psych Common normals: mental status grossly normal, thought process normal, cooperative, affect normal, speech normal and activity/motor behavior normal Speech: normal speech Thought process: normal thought process Assessment and Plan Assessment and Plan (1) Lumbar stenosis with neurogenic claudication: Assessment and Plan: The patient has had over 3 months of moderate to severe low back and RLE pain with functional impairment and inadequate response to conservative care including NSAIDS (unless there are contraindication such as concurrent blood thinners), multiple oral or topical pain medications, and home exercise program/physical therapy.? Patient has completed >6 weeks of guided home exercise program and/or formal physical therapy program without relief of their symptoms.? The Oswestry Disability Index was completed, and the patient scored a 40%.? The patient noted the following:?? moderate to severe pain impacting ADLs, sitting, standing, walking, sleeping, social life, travel (2) Lumbar spondylosis: (3) Myofascial pain: (4) Scoliosis: (5) Rheumatoid arthritis: (6) Low back pain: Plan increase gabapentin 200mg TID as tolerated, has 100mg capsules at home and currently takes 200mg BID refer to neurology for consideration of thoracic/lumbar botox, previously found moderate benefit with Dr Hood and Dr Escobar but we are no longer able to offer that continue baclofen 5-10mg HS PRN pain/spasms continue prn nabumetone f/u 1 month to assess medication changes
== END 2024-10-09 08:33 | disposition home or self-care (01) ==
LOC: PM 08:32
PROVIDERS: PCP Internal Medicine; Visit Provider Nurse Practitioner
DX: M48.062 Spinal stenosis, lumbar region with neurogenic claudication (principal); M47.816 Spondylosis without myelopathy or radiculopathy, lumbar region; M79.18 Myalgia, other site; M41.9 Scoliosis, unspecified; M06.9 Rheumatoid arthritis, unspecified; M54.50 Low back pain, unspecified
CPT/HCPCS: G0463

== ENCOUNTER 2024-10-15 08:18 | Outpatient (OUT) | payer MEDICARE, SELFPAY ==
--- OUTSIDE RECORDS SUMMARY | 2024-10-15 08:29 | XMS_ITS | CCD ---
Author Organization [facility] Care Team Providers Care Photographers' Model Name Role Phone Unavailable Primary Care Provider Unavailalcides e LORI, ANCELMO Attending Unavailable BONUS, ANCELMO Referring Unavailable [...] AGGIE, DR KATHRINE Hart Primary Care Unavailable NAKUL, DR BURNETT Admitting Unavailable BALL, DR BURNETT Primary Care Unavailable BALL, DR BURNETT Consulting Unavailable BALL, DR BURNETT Attending Unavailable BALL, DR BURNETT Primary Care Unavailable ILDEFONSO, DR JEFF Choi Consulting Unavailable MISC, DR GALLEGOS Admitting Unavailable MISC, DR GALLEGOS Attending Unavailable MISC, DR GALLEGOS Consulting Unavailable JADA, DR MARTA Tyler Consulting Unavailable BALL, DR BURNETT Admitting Unavailable BALL, DR BURNETT Primary Care Unavailable BALL, DR BURNETT Consulting Unavailable NAKUL, DR BURNETT Attending Unavailable MARCIAL, DR KATHRINE Hart Primary Care Unavailable BALL, DR BURNETT Consulting Unavailable NAKUL, DR BURNETT Attending Unavailable BALL, DR BURNETT Admitting Unavailable WEST, DR JEFF Choi Consulting Unavailable ZIDR MARTA CORTES Consulting Unavailable HARRIS ., DR DUC Smith Attending Unavailable KIMBERLY ., DR DUC Smith Admitting Unavailable AGGIE, DR KATHRINE Hart Primary Care Unavailable AGGIE, DR KATHRINE Hart Consulting Unavailable KIMBERLY ., DR DUC Smith Consulting Unavailable Nakul Kar Unavailable Nakul Kar Primary Care Provider Kar Mota DO Attending Provider Cassie VALE, Clifton Sena Attending Unavailable Cassie VALE, Clifton Sena Attending Unavailable Allergies Allergy Classification Reported Allergen(s) Allergy Type Date of Onset Reaction(s) Facility (13 sources) Amoxicillin; Translations: [AMOXICILLIN] Drug Allergy 2 Anaphylaxis [facility] Comment on above: Onset Date: 02/08/20 16 (14 sources) NITROFURANTOIN, MACROCRYSTALS / Nitrofurantoin, Monohydrate; Translations: [NITROFURANTOIN MONOHYD/M-CRYST] Drug Allergy 2 Anaphylaxis [facility] (20 sources) Sulfonamides (Antibiotic); Translations: [SULFA (SULFONAMIDE ANTIBIOTICS)] Drug Allergy 2 Anaphylaxis [facility] (1 source) Amoxicillin Drug Allergy 1 [facility] (2 sources) Nitrofurantoin Drug Allergy 3 [facility] (2 sources) Sulfonamides (Antibiotic) Drug allergy (disorder) 3 [facility] (10 sources) Amoxicillin-Pot Clavulanate Drug allergy 6 Unknown [facility] [place] Other (9 sources) Clavulanate Drug Allergy 4 Unknown Reaction [facility] Comment on above: Onset Date: 02/08/20 16 (9 sources) Nitrofurantoin Drug Allergy 4 Difficulty Breathing [facility] Medications Current Medications Medication Drug Class(es) [...] therapy docusate sodium 50 mg / sennosides, correction 8.6 mg oral tablet (3 sources) Start: 12-26-2022 take 8.6-50 mg by mouth once daily in the evening as needed Senokot S 8.6-50 MG 1 tablet as needed Orally q evening for 30 days Nov, Active Vit C,V-Hb-Pvzqt-Lutein-Z eaxan (Preservision Areds-2) 250-90-40-1 mg Capsule (9 sources) Start: 08-27-2021 Vit C,M-Mi-Unubt-Lutei n-Zeaxan (Preservision Areds-2) 250-90-40-1 mg Capsule Active 1 TAB PO Twice daily August 27, 2021 12:00am Complies with drug therapy Start: 08-27-2021 Vit C,E-Zn-Traffic Rate Clerk jm-Osrdth-Zhnkii (Preservision Areds-2) 250-90-40-1 mg Capsule Active 1 TAB PO Twice daily August 26, 2021 11:00pm Start: 08-27-2021 Vit C,E-Zn-Traffic Rate Clerk ij-Segpdw-Izuyys (Preservision Areds-2) 250-90-40-1 mg Capsule Active 1 TAB PO Twice daily August 27, 2021 12:00am 100 ml zoledronic acid 0.05 mg/ml injection (12 sources) Bisphosphonate Start: 08-27-2021 take 5 mg intravenously once Zoledronic Weck-Ggcunjln-Bdntb (Reclast) 5 mg/100 mL Piggyback Active 5 [...] (20 sources) Nonsteroidal Anti-inflammatory Drug Start: End: 03-12-202 5 take 1 tablet by mouth twice daily [...] on above: TAKE 1 CAPSULE BY [facility] 2 TIMES DAILY FOR 12 WEEKS [...] 08-01-2023 Chronic Other aftercare (2 sources) Other intermission coordinator (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; Translations: [OTH TRAINING EXECUTIVE CURRENT DRUG THERAPY] Onset: 2 Episodic Other aftercare (6 sources) Long-term current use of drug therapy; Translations: [Other long-term (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] Episodic Other bone disease [...] Basophils (Bld) [#/Vol] Automated basophil count 0.0-0.1 [facility] Basophils/100 WBC Auto (Bld) on 05-03-2024 Basophils/100 WBC (Bld) Automated basophil % 0.2-2.0 [facility] Eosinophils/100 WBC Auto (Bl d)on 05-03-2024 Eosinophils/100 WBC (Bld) Automated eosinophil % 0.9-7.0 [facility] Erythrocyte distribution wid th Auto (RBC) [Ratio]on 05-03-2024 Erythrocyte distribution width (RBC) [Ratio] Erythrocyte distribution width [Ratio] by Automated count 11.0-15.0 [facility] Hematocrit Auto (Bld) [Volum e fraction]on 05-03-2024 Hematocrit (Bld) [Volume fraction] Hematocrit [Volume Fraction] of Blood by Automated count Low 36.0-48.0 [facility] Hemoglobin [Mass/volume] in Bloodon 05-03-2024 Hemoglobin (Bld) [Mass/Vol] Hemoglobin [Mass/volume] in Blood Low 12.0-16.0 [facility] Laboratory - Hematology and Cell countson 05-03-2024 Immature granulocytes/100 WBC (Bld) 0.4 % 0.0-0.5 [facility] Leukocytes [#/volume] correc ric for nucleated erythrocytes in Blood by Automated counon 05-03-2024 WBC corrected for nucl RBC Auto (Bld) [#/Vol] Leukocytes [#/volume] corrected for nucleated erythrocytes in Blood by Automated coun 4.0-11.0 [facility] Lymphocytes Auto (Bld) [#/Vo l]on 05-03-2024 Lymphocytes (Bld) [#/Vol] Lymphocytes [#/volume] in Blood by Automated count 1.2-3.8 [facility] Lymphocytes/100 WBC Auto (Bl d)on 05-03-2024 Lymphocytes/100 WBC (Bld) Lymphocytes/100 leukocytes in Blood by Automated count 20.5-60.0 [facility] MCH Auto (RBC) [Entitic mass ]on 05-03-2024 MCH (RBC) [Entitic mass] MCH [Entitic mass] by Automated count 26.7-34.0 [facility] MCHC Auto (RBC) [Mass/Vol]on 05-03-2024 MCHC (RBC) [Mass/Vol] MCHC [Mass/volume] by Automated count 29.9-35.2 [facility] MCV Auto (RBC) [Entitic vol] on 05-03-2024 MCV (RBC) [Entitic vol] MCV [Entitic volume] by Automated count 81.0-99.0 [facility] Monocytes Auto (Bld) [#/Vol] on 05-03-2024 Monocytes (Bld) [#/Vol] Automated blood monocyte count 0.3-0.8 [facility] Monocytes/100 WBC Auto (Bld) on 05-03-2024 Monocytes/100 WBC (Bld) Automated monocyte % 1.7-12.0 [facility] Neutrophils Auto (Bld) [#/Vo l]on 05-03-2024 Neutrophils (Bld) [#/Vol] Neutrophils [#/volume] in Blood by Automated count 1.4-6.5 [facility] Neutrophils/100 WBC Auto (Bl d)on 05-03-2024 Neutrophils/100 WBC (Bld) Automated neutrophil % 43.0-75.0 [facility] No Panel Informationon 05-03 Eosinophils # (Auto) 0.2 10 3/uL 0.0-0.7 [facility] Immature Granulocyte # (Auto) 0.02 10 3/uL 0.00-0.03 [facility] Platelet mean volume Auto (B ld) [Entitic vol]on 05-03-2024 Platelet mean volume (Bld) [Entitic vol] Platelet mean volume [Entitic volume] in Blood by Automated count Low 9.5-13.5 [facility] Platelets Auto (Bld) [#/Vol] on 05-03-2024 Platelets (Bld) [#/Vol] Platelets [#/volume] in Blood by Automated count 150-450 [facility] RBC Auto (Bld) [#/Vol]on RBC (Bld) [#/Vol] Erythrocytes [#/volume] in Blood by Automated count Low 4.20-5.40 [facility] Basophils Auto (Bld) [#/Vol] on 02-09-2024 Basophils (Bld) [#/Vol] Automated basophil count 0.0-0.1 [facility] Basophils/100 WBC Auto (Bld) on 02-09-2024 Basophils/100 WBC (Bld) Automated basophil % 0.2-2.0 [facility] Eosinophils/100 WBC Auto (Bl d)on 02-09-2024 Eosinophils/100 WBC (Bld) Automated eosinophil % 0.9-7.0 [facility] Erythrocyte distribution wid th Auto (RBC) [Ratio]on 02-09-2024 Erythrocyte distribution width (RBC) [Ratio] Erythrocyte distribution width [Ratio] by Automated count 11.0-15.0 [facility] Estimated glomerular filtrat ion rate (GFR) non- Americanon 02-09-2024 GFR/1.73 sq M.predicted among non-blacks MDRD (S/P/Bld) [Vol rate/Area] Estimated glomerular filtration rate (GFR) non- Low >=60 mL/min/1.73m 2 [facility] Hematocrit Auto (Bld) [Volum e fraction]on 02-09-2024 Hematocrit (Bld) [Volume fraction] Hematocrit [Volume Fraction] of Blood by Automated count Low 36.0-48.0 [facility] Hemoglobin [Mass/volume] in Bloodon 02-09-2024 Hemoglobin (Bld) [Mass/Vol] Hemoglobin [Mass/volume] in Blood Low 12.0-16.0 [facility] Iron binding capacity [Mass/ volume] in Serum or Plasmaon 02-09-2024 Iron binding capacity [Mass/Vol] Iron binding capacity [Mass/volume] in Serum or Plasma 250.0-450.0 [facility] Iron saturation [Mass Fracti on] in Serum or Plasmaon 02-09-2024 Iron saturation [Mass fraction] Iron saturation [Mass Fraction] in Serum or Plasma [facility] Laboratory - Chemistry and C hemistry - challengeon 02-09-2024 Calcium [Mass/Vol] 9.8 mg/dL 8.5-10.1 [facility] Chloride [Moles/Vol] 107 mmol/L 98-107 [facility] CO2 [Moles/Vol] 31.1 mmol/L 21.0-32.0 [facility] Cobalamin (Vitamin B12) [Mass/Vol] 250 pg/mL 232-1245 [facility] Comment on above: Performed at: - L [facility] [address] [id number] Director: Primo Richard PhD, Phone: [phone] Creatinine [Mass/Vol] 1.25 mg/dL High 0.55-1.02 [facility] Ferritin [Mass/Vol] 28.0 ng/mL 8.0-252.0 [facility] GFR/1.73 sq M.predicted MDRD (S/P/Bld) [Vol rate/Area] 51 mL/min/{1.73_m2} Low >=60 mL/min/1.73m 2 [facility] Glucose [Mass/Vol] 87 mg/dL 74-106 [facility] Iron [Mass/Vol] 122.0 ug/dL 50.0-170.0 [facility] Potassium [Moles/Vol] 4.1 mmol/L 3.5-5.1 [facility] Sodium [Moles/Vol] 147 mmol/L High 136-145 [facility] Urea nitrogen [Mass/Vol] 20.0 mg/dL High 7.0-18.0 [facility] Urea nitrogen/Creatinine [Mass ratio] 16.0 mg/mg [facility] Laboratory - Hematology and Cell countson 02-09-2024 Immature granulocytes/100 WBC (Bld) 0.2 % 0.0-0.5 [facility] Leukocytes [#/volume] correc ric for nucleated erythrocytes in Blood by Automated counon 02-09-2024 WBC corrected for nucl RBC Auto (Bld) [#/Vol] Leukocytes [#/volume] corrected for nucleated erythrocytes in Blood by Automated coun 4.0-11.0 [facility] Lymphocytes Auto (Bld) [#/Vo l]on 02-09-2024 Lymphocytes (Bld) [#/Vol] Lymphocytes [#/volume] in Blood by Automated count 1.2-3.8 [facility] Lymphocytes/100 WBC Auto (Bl d)on 02-09-2024 Lymphocytes/100 WBC (Bld) Lymphocytes/100 leukocytes in Blood by Automated count 20.5-60.0 [facility] MCH Auto (RBC) [Entitic mass ]on 02-09-2024 MCH (RBC) [Entitic mass] MCH [Entitic mass] by Automated count 26.7-34.0 [facility] MCHC Auto (RBC) [Mass/Vol]on 02-09-2024 MCHC (RBC) [Mass/Vol] MCHC [Mass/volume] by Automated count 29.9-35.2 [facility] MCV Auto (RBC) [Entitic vol] on 02-09-2024 MCV (RBC) [Entitic vol] MCV [Entitic volume] by Automated count 81.0-99.0 [facility] Monocytes Auto (Bld) [#/Vol] on 02-09-2024 Monocytes (Bld) [#/Vol] Automated blood monocyte count 0.3-0.8 [facility] Monocytes/100 WBC Auto (Bld) on 02-09-2024 Monocytes/100 WBC (Bld) Automated monocyte % 1.7-12.0 [facility] Neutrophils Auto (Bld) [#/Vo l]on 02-09-2024 Neutrophils (Bld) [#/Vol] Neutrophils [#/volume] in Blood by Automated count 1.4-6.5 [facility] Neutrophils/100 WBC Auto (Bl d)on 02-09-2024 Neutrophils/100 WBC (Bld) Automated neutrophil % 43.0-75.0 [facility] No Panel Informationon 02-08 Eosinophils # (Auto) 0.1 10 3/uL 0.0-0.7 [facility] Folate 21.20 ng/mL 8.60-58.90 [facility] Immature Granulocyte # (Auto) 0.01 10 3/uL 0.00-0.03 [facility] Platelet mean volume Auto (B ld) [Entitic vol]on 02-09-2024 Platelet mean volume (Bld) [Entitic vol] Platelet mean volume [Entitic volume] in Blood by Automated count Low 9.5-13.5 [facility] Platelets Auto (Bld) [#/Vol] on 02-09-2024 Platelets (Bld) [#/Vol] Platelets [#/volume] in Blood by Automated count 150-450 [facility] RBC Auto (Bld) [#/Vol]on RBC (Bld) [#/Vol] Erythrocytes [#/volume] in Blood by Automated count Low 4.20-5.40 [facility] Serum or plasma anion gap de terminationon 02-09-2024 Anion gap [Moles/Vol] Serum or plasma anion gap determination [facility] Estimated glomerular filtrat ion rate (GFR) non- Americanon 12-15-2023 GFR/1.73 sq M.predicted among non-blacks MDRD (S/P/Bld) [Vol rate/Area] Estimated glomerular filtration rate (GFR) non- Low >=60 mL/min/1.73m 2 [facility] Laboratory - Chemistry and C hemistry - challengeon 12-15-2023 Calcium [Mass/Vol] 9.7 mg/dL 8.5-10.1 [facility] Chloride [Moles/Vol] 106 mmol/L 98-107 [facility] CO2 [Moles/Vol] 29.9 mmol/L 21.0-32.0 [facility] Creatinine [Mass/Vol] 1.26 mg/dL High 0.55-1.02 [facility] GFR/1.73 sq M.predicted MDRD (S/P/Bld) [Vol rate/Area] 50 mL/min/{1.73_m2} Low >=60 mL/min/1.73m 2 [facility] Glucose [Mass/Vol] 91 mg/dL 74-106 [facility] Potassium [Moles/Vol] 3.7 mmol/L 3.5-5.1 [facility] Sodium [Moles/Vol] 143 mmol/L 136-145 [facility] Urea nitrogen [Mass/Vol] 21.0 mg/dL High 7.0-18.0 [facility] Urea nitrogen/Creatinine [Mass ratio] 16.7 mg/mg [facility] No Panel Informationon 12-14 25-Hydroxy Vitamin D Total 68.1 ng/mL [facility] Comment on above: <20 ng/mL Vit D defi cient20-<30 ng/mL Vit D cjjefguigenz61-318 ng/mL Vit D sufficient>100 ng/mL Potential Toxicity Serum or plasma anion gap de terminationon 12-15-2023 Anion gap [Moles/Vol] Serum or plasma anion gap determination [facility] CBC AUTO DIFFon 03-08-2022 BASO # 0.0 103/ul Normal 0.0-0.1 [facility] Comment on above: Performed By: #### C BC ####[facility] [address] [place] [address]Dr. Tanner Madison Basophils/100 WBC (Bld) 0.7 % Normal 0.2-2.0 [facility] Comment on above: Performed By: #### C BC ####[facility] [address] [place] [address]DrAryan Madison EO # 0.1 103/ul Normal 0.0-0.7 [facility] Comment on above: Performed By: #### C BC ####[facility] [address] [place] [address]Dr. Tanner Madison Eosinophils/100 WBC (Bld) 1.5 % Normal 0.9-7.0 [facility] Comment on above: Performed By: #### C BC ####[facility] [address] [place] [id number] Madison Erythrocyte distribution width (RBC) [Ratio] 13.2 % Normal 11.0-15.0 [facility] Comment on above: Performed By: #### C BC ####[facility] [address] [place] [address]DrAryan Madison Hematocrit (Bld) [Volume fraction] 34.1 % Critically low 36.0-48.0 [facility] Comment on above: Performed By: #### C BC ####[facility] [address] [place] [address]Dr. Tanner Madison Hemoglobin (Bld) [Mass/Vol] 11.7 g/dL Critically low 12.0-16.0 [facility] Comment on above: Performed By: #### C BC ####[facility] [address] [place] [address]Dr. Tanner Madison IG # 0.02 10e3/ul Normal 0.00-0.03 [facility] Comment on above: Performed By: #### C BC ####[facility] [address] [place] [address]Dr. Tanner Madison IG % 0.4 % Normal 0.0-0.5 [facility] Comment on above: Performed By: #### C BC ####[facility] [address] [place], [place] [address]Dr. Tanner Los LYMPH # 1.2 103/ul Normal 1.2-3.8 [facility] Comment on above: Performed By: #### C BC ####[facility] [address] [place], [place] [address]Dr. Virginiasunita Madison Lymphocytes/100 WBC (Bld) 25.6 % Normal 20.5-60.0 [facility] Comment on above: Performed By: #### C BC ####[facility] [address] [place], [place] [address]Dr. Tanner Madison MANUAL DIFF REQ NO Normal [facility] Comment on above: Performed By: #### C BC ####[facility] [address] [place] [address]Dr. Tanner Madison MCH (RBC) [Entitic mass] 30.9 pg Normal 26.7-34.0 [facility] Comment on above: Performed By: #### C BC ####[facility] [address] [place] [address]Dr. Tanner Madison MCHC (RBC) [Mass/Vol] 34.3 g/dL Normal 29.9-35.2 [facility] Comment on above: Performed By: #### C BC ####[facility] [address] [place] [id number]. Tanner Madison MCV (RBC) [Entitic vol] 90.0 fL Normal 81.0-99.0 [facility] Comment on above: Performed By: #### C BC ####[facility] [address] [place] [id number]. Tanner Madison MONO # 0.4 103/ul Normal 0.3-0.8 [facility] Comment on above: Performed By: #### C BC ####[facility] [address] [place] [address]Dr. Tanner Los Monocytes/100 WBC (Bld) 7.6 % Normal 1.7-12.0 [facility] Comment on above: Performed By: #### C BC ####[facility] [address] [place], [place] [address]Dr. Tanner Madison NEUT # 3.0 103/ul Normal 1.4-6.5 [facility] Comment on above: Performed By: #### C BC ####[facility] [address] [place], [place] [address]Dr. Tanner Los Neutrophils/100 WBC (Bld) 64.2 % Normal 43.0-75.0 [facility] Comment on above: Performed By: #### C BC ####[facility] [address] [place], [place] [address]Dr. Tanner Los Platelet mean volume (Bld) [Entitic vol] 8.5 fL Critically low 9.5-13.5 [facility] Comment on above: Performed By: #### C BC ####[facility] [address] [place], [place] [id number]. Tanner Los PLT 269 103/ul Normal 150-450 [facility] Comment on above: Performed By: #### C BC ####[facility] [address] [place] [id number]. Tanner Madison RBC 3.79 106/ul Critically low 4.20-5.40 [facility] Comment on above: Performed By: #### C BC ####[facility] [address] [place], [place] [address]QbDr. Tanner Madison WBC 4.6 103/ul Normal 4.0-11.0 [facility] Comment on above: Performed By: #### C BC ####[facility] [address] [place], [place] [address]HzAryan Madison MG MAMM SCREEN 3D VIJAYA CADon 03-08-2022 MG MAMM SCREEN 3D VIJAYA CAD Patient: COURTNEY WHITE Exam Date: 03/08/2022 : 1950 Gender:F Ordering : DR KAR MOTA D.O. Admission #: [id number] Family : Order #: [id number] CLICK HERE TO VIEW EXAM RADIOLOGY REPORT [...] breast cancer at age 48. LOCATION: [facility] BREAST COMPOSITION: Extremely dense, which lowers the [...] Fregoso MD on 03/08/2022 at 12:[address] [facility] PROF CHEM 8 (BAS METB)on Anion gap [Moles/Vol] 11.0 mmol/L Normal [facility] Comment on above: Performed By: #### T SH, BMP #### [facility] [address] [place], [place] [address] Dr. Tanner Madison Calcium [Mass/Vol] 9.5 mg/dL Normal 8.5-10.1 [facility] Comment on above: Performed By: #### T SH, BMP #### [facility] [address] [place] [address] Dr. Tanner Madison Chloride [Moles/Vol] 103 mmol/L Normal 98-107 [facility] Comment on above: Performed By: #### T SH, BMP #### [facility] [address] [place] [address] Dr. Tanner Madison CO2 [Moles/Vol] 30.1 mmol/L Normal 21.0-32.0 [facility] Comment on above: Performed By: #### T SH, BMP #### [facility] [address] [place] [address] Dr. Tanner Madison Creatinine [Mass/Vol] 0.98 mg/dL Normal 0.55-1.02 [facility] Comment on above: Performed By: #### T SH, BMP #### [facility] [address] [place] [address] Dr. Tanner Madison EGFR-AF FILIPINO >60 Normal >=60 [facility] Comment on above: Performed By: #### T SH, BMP #### [facility] [address] [place] [address] Dr. Tanner Madison EGFR-NON AF FILIPINO 56 mL/min/1.73m2 Critically low >=60 [facility] Comment on above: Performed By: #### T SH, BMP #### [facility] [address] [place] [address] Dr. Tanner Madison Glucose [Mass/Vol] 91 mg/dL Normal 74-106 [facility] Comment on above: Performed By: #### T SH, BMP #### [facility] [address] [place] [address] Dr. Tanner Madison Potassium [Moles/Vol] 4.1 mmol/L Normal 3.5-5.1 [facility] Comment on above: Performed By: #### T SH, BMP #### [facility] [address] [place] [address] Dr. Tanner Madison Sodium [Moles/Vol] 140 mmol/L Normal 136-145 [facility] Comment on above: Performed By: #### T TYRA, BMP #### [facility] [address] [place] [address] [address] Tanner Madison Urea nitrogen [Mass/Vol] 14.0 mg/dL Normal 7.0-18.0 [facility] Comment on above: Performed By: #### T TYRA, BMP #### [facility] [address] [place] [address] [address] Tanner Madison Urea nitrogen/Creatinine [Mass ratio] 14.3 mg/mg Normal [facility] Comment on above: Performed By: #### Gil MARY, BMP #### [facility] [address] [place] [address] Dr. Tanner Madison TSHon 03-08-2022 TSH 2.659 uIU/mL Normal 0.358-3.740 [facility] Comment on above: Performed By: #### Gil MARY, BMP #### [facility] [address] [place] [address] Dr. Tanner Madison VITAMIN D 25 OHon 03-08-2022 VIT D 25-OH 63.4 ng/mL Normal [facility] Comment on above: Performed By: #### V ITAD ####[facility] [address] [place] [id number]. Tanner Madison VIT D RANGES SEE BELOW Normal [facility] Comment on above: Result Comment: <20 ng/mL Vit D deficient 20 - <30 ng/mL Vit D insufficient 30 - 100 ng/mL Vit D sufficient >100 ng/mL Potential Toxicity Performed By: #### V ITAD ####[facility] [address] [place] [id number]. Tanner Madison XR DEXA BONE DENSITYon 03-08 [...] by: MARTA ELIAS Date: 2022-03-08 10:52 Normal [facility] 11-16-2021 [facility] Telephone (NIQ) COURTNEY WHITE ([id number]) 1950 F Date Time Provider Department 11/16/21 [...] Status:Closed by RAYSA RICO on 11/23/[address] [facility] MRI LSPINE WO CONon 11-05-19 MRI [...] by: MARTA ELIAS Date: 2021-11-04 06:[address] [facility] MRI TSPINE WO CONon 11-04-19 MRI [facility] WO CON EXAMINATION: MRI TSPINE WO CON [...] JEFF FREGOSO Date: 2021-11-03 19:07 Normal [facility] VIT D 25-OH LABCORPon 2021 Vitamin D, 25-Hydroxy 69.8 ng/mL Normal 30.0-100.0 [facility] Comment on above: Result Comment: Negar min D deficiency has been defined by the [place] of [employer] and an Endocrine Society practice guideline as a level of serum 25-OH vitamin D less than 20 ng/mL (1,2). The Endocrine Society went on to further define vitamin D insufficiency as a level between 21 and 29 ng/mL (2). 1. IOM ([place] of [employer]). 2010. Dietary reference intakes for calcium and D. [place]: The National Academies Press. 2. Mikal MF, Jayy NC, Zi MACHADO, et al. Evaluation, treatment, and prevention of vitamin D deficiency: an Endocrine Society clinical practice guideline. JCEM. 2010; 96(7):1911-30. Performed By: #### V ITADLC #### [facility] [address] [place] [address] Dr. Tanner Madison CBC AUTO DIFFon 10-28-2021 BASO # 0.0 103/ul Normal 0.0-0.1 [facility] Comment on above: Performed By: #### C BC #### [facility] [address] [place] [address] Dr. Tanner Madison Basophils/100 WBC (Bld) 0.6 % Normal 0.2-2.0 [facility] Comment on above: Performed By: #### C BC #### [facility] [address] [place] [address] Dr. Tanner Madison EO # 0.1 103/ul Normal 0.0-0.7 [facility] Comment on above: Performed By: #### C BC #### [facility] [address] [place] [address] Dr. Tanner Madison Eosinophils/100 WBC (Bld) 1.1 % Normal 0.9-7.0 [facility] Comment on above: Performed By: #### C BC #### [facility] [address] [place] [address] Dr. Tanner Madison Erythrocyte distribution width (RBC) [Ratio] 13.5 % Normal 11.0-15.0 [facility] Comment on above: Performed By: #### C BC #### [facility] [address] [place] [address] Dr. Tanner Madison Hematocrit (Bld) [Volume fraction] 31.7 % Critically low 36.0-48.0 [facility] Comment on above: Performed By: #### C BC #### [facility] [address] [place] [address] Dr. Tanner Madison Hemoglobin (Bld) [Mass/Vol] 10.8 g/dL Critically low 12.0-16.0 [facility] Comment on above: Performed By: #### C BC #### [facility] [address] [place] [address] Dr. Tanner Madison IG # 0.01 10e3/ul Normal 0.00-0.03 [facility] Comment on above: Performed By: #### C BC #### [facility] [address] [place] [address] Dr. Tanner Madison IG % 0.2 % Normal 0.0-0.5 [facility] Comment on above: Performed By: #### C BC #### [facility] [address] [place] [address] Dr. Tanner Madison LYMPH # 1.3 103/ul Normal 1.2-3.8 [facility] Comment on above: Performed By: #### C BC #### [facility] [address] [place] [address] Dr. Tanner Madison Lymphocytes/100 WBC (Bld) 24.0 % Normal 20.5-60.0 [facility] Comment on above: Performed By: #### C BC #### [facility] [address] [place] [address] Dr. Tanner Madison MANUAL DIFF REQ NO Normal [facility] Comment on above: Performed By: #### C BC #### [facility] [address] [place] [address] Dr. Tanner Madison MCH (RBC) [Entitic mass] 31.0 pg Normal 26.7-34.0 [facility] Comment on above: Performed By: #### C BC #### [facility] [address] [place] [address] Dr. Tanner Madison MCHC (RBC) [Mass/Vol] 34.1 g/dL Normal 29.9-35.2 [facility] Comment on above: Performed By: #### C BC #### [facility] [address] [place] [address] Dr. Tanner Madison MCV (RBC) [Entitic vol] 91.1 fL Normal 81.0-99.0 [facility] Comment on above: Performed By: #### C BC #### [facility] [address] [place] [address] Dr. Tanner Madison MONO # 0.5 103/ul Normal 0.3-0.8 [facility] Comment on above: Performed By: #### C BC #### [facility] [address] [place] [address] Dr. Tanner Madison Monocytes/100 WBC (Bld) 8.3 % Normal 1.7-12.0 [facility] Comment on above: Performed By: #### C BC #### [facility] [address] [place] [address] Dr. Tanner Madison NEUT # 3.6 103/ul Normal 1.4-6.5 [facility] Comment on above: Performed By: #### C BC #### [facility] [address] [place] [address] Dr. Tanner Madison Neutrophils/100 WBC (Bld) 65.8 % Normal 43.0-75.0 [facility] Comment on above: Performed By: #### C BC #### [facility] [address] [address] [address] Tanner Madison Platelet mean volume (Bld) [Entitic vol] 8.6 fL Critically low 9.5-13.5 [facility] Comment on above: Performed By: #### C BC #### [facility] [address] [address] [address] Tanner Madison PLT 234 103/ul Normal 150-450 [facility] Comment on above: Performed By: #### C BC #### [facility] [address] [address] [address] Tanner Madison RBC 3.48 106/ul Critically low 4.20-5.40 [facility] Comment on above: Performed By: #### C BC #### [facility] [address] [address] [address] Tanner Madison WBC 5.4 103/ul Normal 4.0-11.0 [facility] Comment on above: Performed By: #### C BC #### [facility] [address] [address] [address] Tanner Madison PROF CHEM 8 (BAS METB)on Anion gap [Moles/Vol] 12.7 mmol/L Normal [facility] Comment on above: Performed By: #### B MP ####[facility] [address] [address]Dr. Tanner Madison Calcium [Mass/Vol] 9.2 mg/dL Normal 8.5-10.1 [facility] Comment on above: Performed By: #### B MP ####[facility] [address] [address]Dr. Tanner Madison Chloride [Moles/Vol] 102 mmol/L Normal 98-107 [facility] Comment on above: Performed By: #### B MP ####[facility] [address] [address]Dr. Tanner Madison CO2 [Moles/Vol] 30.4 mmol/L Normal 21.0-32.0 [facility] Comment on above: Performed By: #### B MP ####[facility] [address] [address]Dr. Tanner Madison Creatinine [Mass/Vol] 1.07 mg/dL Critically high 0.55-1.02 [facility] Comment on above: Performed By: #### B MP ####[facility] [address] [id number]. Tanner Madison EGFR-AF FILIPINO >60 Normal >=60 [facility] Comment on above: Performed By: #### B MP ####[facility] [address] [address]Dr. Tanner Madison EGFR-NON AF FILIPINO 50 mL/min/1.73m2 Critically low >=60 [facility] Comment on above: Performed By: #### B MP ####[facility] [address] [address]Dr. Tanner Madison Glucose [Mass/Vol] 99 mg/dL Normal 74-106 [facility] Comment on above: Performed By: #### B MP ####[facility] [address] [address]Dr. Tanner Madison Potassium [Moles/Vol] 4.1 mmol/L Normal 3.5-5.1 [facility] Comment on above: Performed By: #### B MP ####[facility] [address] [address]Dr. Tanner Madison Sodium [Moles/Vol] 141 mmol/L Normal 136-145 [facility] Comment on above: Performed By: #### B MP ####[facility] [address] [id number]. Tanner Madison Urea nitrogen [Mass/Vol] 16.0 mg/dL Normal 7.0-18.0 [facility] Comment on above: Performed By: #### B MP ####[facility] [address] [id number]. Tanner Madison Urea nitrogen/Creatinine [Mass ratio] 15.0 mg/mg Normal [facility] Comment on above: Performed By: #### B ####[facility] [address] [place], [place] [address]NkAryan Madison Helene 10-15-2021 CNOV Office Visit (SPNMMN) COURTNEY WHITE ([id number]) 1950 F Date Time Provider Department 10/15/21 2:00 PM ANCELMO SANDOVAL SPNMMN During your visit today, we recorded [...] short period (more content not included)... Normal [facility] XR SCOLIOSIS 2V PA STAND/LAT on [...] abnormality. IMPRESSION: Thoracolumbar scoliosis and degenerative changes. Smocker: PSCB Transcribe Date/Time: Oct 15 2021 2:52P Dictated by : CHETNA HERNANDEZ MD This examination was interpreted and the report reviewed and electronically signed by: CHETNA HERNANDEZ MD on Oct 15 2021 2:54PM EST [id number] CN Normal [facility] XR SCOLIOSIS PA STAND/LAT 2V on 10-15-2021 [facility] 08-27-2021 L Specimen: [id number] Received: 08/27/21 Status: VINOD Garcia Num: [id number] Spec Type: Surgical Subm Dr: Will Ma MD Tissues: A Gastric Biopsy (GASTRIC BXS) Procedures: HE Stain/2, Gross/Micro L4 Patient Age/Sex Location Account Attending Physician Courtney White 70/F [id number] Will Ma MD SPEC NUM: [id number] RECD: 08/27/21 STATUS: VINOD GARCIA NUM: [id number] JHONNY: 08/27/21- SUZETTE DR: Will Ma MD ENTERED: 08/27/21 [facility] DR: SPEC TYPE: Surgical DEPT: S ORDERED: HE [...] microscopic findings support the above pathologic diagnosis. [id number] Specimen: [id number] Received: 08/27/21 Status: VINOD Garcia Num: [id number] Spec Type: Surgical Subm Dr: Will Ma MD Tissues: A Gastric Biopsy (GASTRIC BXS) Procedures: HE Stain/2, Gross/Micro L4 Patient: Courtney White [id number] (Continued) Signed (signature on file) Nisreen Marquez MD 08/31/21 1659 Normal [facility] SARS-CoV-2 (COVID-19) RNA JEFFRY+probe Ql (Unsp spec) Negative Normal Negative [facility] Comment on above: Order Comment: Healt hcare Worker?: N Result Comment: Testing for SARS-CoV-2 by RT-PCR This test was developed and its performance characteristics determined by [employer], [employer] and validated at the [facility]. This test has not been FDA [...] revoked sooner. PERFORMED BY: [place] [address] PATHOLOGIST TELEPHONE INFORMATION SUPERVISOR NISREEN MARQUEZ M.D. Performed By: #### C OVID 19 [facility] #### [address] Vital Signs Date Time Vital Sign Value Performing Clinician Facility 09-16-2024 09:23-0400 Body height 160.02 cm Kar Ball DO Work Phone: [facility] 09-16-2024 09:23-0400 Body mass index (BMI) [Ratio] 19 kg/m2 Kar Ball DO Work Phone: [facility] 09-16-2024 09:23-0400 Body weight 48.7 kg Kar Ball DO Work Phone: [facility] 09-16-2024 09:23-0400 Diastolic blood pressure 68 mm[Hg] Kar Ball DO Work Phone: [facility] 09-16-2024 09:23-0400 Heart rate 71 /min Kar Ball DO Work Phone: [facility] 09-16-2024 09:23-0400 Respiratory rate 12 /min Kar Ball DO Work Phone: [facility] 09-16-2024 09:23-0400 Systolic blood pressure 139 mm[Hg] Kar Ball DO Work Phone: [facility] 05-08-2024 08:59-0400 Body height 160.02 cm [facility] 05-08-2024 08:59-0400 Body mass index (BMI) [Ratio] 20.2 kg/m2 [facility] 05-08-2024 08:59-0400 Body weight 51.93 kg [facility] 05-08-2024 08:59-0400 Diastolic blood pressure 89 mm[Hg] [facility] 05-08-2024 08:59-0400 Heart rate 70 /min [facility] 05-08-2024 08:59-0400 Respiratory rate 12 /min [facility] 05-08-2024 08:59-0400 Systolic blood pressure 139 mm[Hg] [facility] 08-03-2023 10:08-0400 Body height 160.02 cm [facility] 08-03-2023 10:08-0400 Body mass index (BMI) [Ratio] 19.7 kg/m2 [facility] 08-03-2023 10:08-0400 Body weight 50.57 kg [facility] 08-03-2023 10:08-0400 Diastolic blood pressure 81 mm[Hg] [facility] 08-03-2023 10:08-0400 Heart rate 70 /min [facility] 08-03-2023 10:08-0400 Respiratory rate 12 /min [facility] 08-03-2023 10:08-0400 Systolic blood pressure 150 mm[Hg] [facility] 09-26-2022 10:30-0400 Body height 160.02 cm Kar Ball Other [facility] Other 09-26-2022 10:30-0400 Body mass index (BMI) [Ratio] 19.31 kg/m2 Kar Ball Other [facility] Other 09-26-2022 10:30-0400 Body weight 49.44 kg Kar Ball Other [facility] Other 09-26-2022 10:30-0400 Diastolic blood pressure 75 mm[Hg] Kar Ball Other [facility] Other 09-26-2022 10:30-0400 Respiratory rate 12 /min Kar Ball Other [facility] Other 09-26-2022 10:30-0400 Systolic blood pressure 166 mm[Hg] Kar Ball Other [facility] Other 02-01-2022 10:22-0500 Body height 160 cm [...] Date Encounter Type Care Provider Facility Start: 09-30-2024 End: 09-30-2024 ambulatory Clifton Matthews MD Facility:[facility] Start: 09-16-2024 End: 09-16-2024 ambulatory Kar Mota DO Work Phone: [facility] Work Phone: Start: 09-16-2024 End: 09-16-2024 Patient encounter procedure Kar Mota DO -[facility] Work Phone: Start: 08-12-2024 End: 08-12-2024 Patient encounter procedure Kar Mota DO -[facility] Work Phone: Start: 07-11-2024 End: 07-11-2024 ambulatory [facility] Work Phone: Start: 07-11-2024 End: 07-11-2024 Patient encounter procedure [facility] Work Phone: Start: 06-07-2024 End: 06-07-2024 ambulatory [facility] Work Phone: Start: 06-07-2024 End: 06-07-2024 Patient encounter procedure [facility] Work Phone: Start: 05-08-2024 End: 05-08-2024 ambulatory [facility] Work Phone: Start: 05-08-2024 End: 05-08-2024 Patient encounter procedure [facility] Work Phone: Start: 05-03-2024 Non-patient / Non-visit [facility] Work Phone: Start: 04-08-2024 End: 04-08-2024 ambulatory [facility] Work Phone: Start: 04-08-2024 End: 04-08-2024 Patient encounter procedure [facility] Work Phone: Start: 03-07-2024 End: 03-07-2024 ambulatory [facility] Work Phone: Start: 03-07-2024 End: 03-07-2024 Patient encounter procedure [facility] Work Phone: Start: 02-29-2024 End: 02-29-2024 ambulatory [facility] Work Phone: Start: 02-29-2024 End: 02-29-2024 Patient encounter procedure [facility] Work Phone: Start: 02-22-2024 End: 02-22-2024 Patient encounter procedure [facility] Work Phone: Start: 02-19-2024 End: 02-19-2024 ambulatory Clifton Matthews MD Facility: [facility] Start: 02-15-2024 End: 02-15-2024 Patient encounter procedure [facility] Work Phone: Start: 02-09-2024 Non-patient / Non-visit [facility] Work Phone: Start: 12-15-2023 Non-patient / Non-visit [facility] Work Phone: Start: 11-16-2023 End: 11-16-2023 ambulatory [facility] Work Phone: Start: 11-16-2023 End: 11-16-2023 Patient encounter procedure [facility] Work Phone: Start: 08-03-2023 End: 08-03-2023 ambulatory [facility] Work Phone: Start: 08-03-2023 End: 08-03-2023 Patient encounter procedure [facility] Work Phone: Start: 07-19-2023 Non-patient / Non-visit [facility] Work Phone: Start: 03-27-2023 End: 03-27-2023 ambulatory Kar Ball Other [facility] Other Start: 03-27-2023 Office outpatient vi sit 15 minutes Kar Ball [facility] Start: 03-27-2023 Telephone encounter Kar Ball [facility] Start: 01-23-2023 End: 01-23-2023 ambulatory Kar Ball Other [facility] Other Start: 01-23-2023 Telephone encounter Kar Ball [facility] Start: 11-29-2022 End: 11-29-2022 ambulatory Kar Ball Other [facility] Other Start: 11-29-2022 Telephone encounter Kar Ball [facility] Start: 11-28-2022 End: 11-28-2022 ambulatory Kar Ball Other [facility] Other Start: 11-28-2022 Nursing evaluation o f patient and report Kar Ball [facility] Start: 11-28-2022 Telephone encounter Kar Ball [facility] Start: 10-04-2022 End: 10-04-2022 ambulatory Kar Ball Other [facility] Other Start: 10-04-2022 Telephone encounter Kar Mota [facility] Start: 09-26-2022 End: 09-26-2022 ambulatory Kar Mota Other [facility] Other Start: 09-26-2022 Office outpatient vi sit 15 minutes Kar Mota [facility] Start: 07-14-[address] KATHRINE MARCIAL Facil ity:[facility] Start: 05-02-2022 End: 05-03-[address] KATHRINE MARCIAL Facility:[facility] Start: 03-08-2022 End: 03-09-[address] KATHRINE MARCIAL Facility:[facility] Start: 03-02-2022 End: 03-03-[address] KATHRINE MARCIAL Facility:[facility] Start: 02-15-2022 Adult health examination Chris Mota Other [facility] Other Start: 02-01-2022 End: 02-01-2022 ambulatory ANCELMO SANDOVAL Facility:[facility] Start: 02-01-2022 End: 02-01-2022 Patient encounter procedure Wellington Hong MD Work Phone: [facility] Comment on above: Encounter for screen ing [...] 10-28-2021 End: 10-29-[address] KAR MOTA Facility: Start: 10-15-2021 End: 10-15-2021 ambulatory ANCELMO SANDOVAL Facility:[facility] Start: 10-15-2021 End: 10-15-2021 Subsequent hospital visit [...] of colon Kar Mota Other Depression screening Violettejerad jaspal Mota Other Screening for malign ant [...] [facility] Start: [address] COLONOGRAPHY [facility] Start: 1993 DIABETES SCREEN DIABETES SCREEN [facility] Start: 1993 FECAL OCCULT BLOOD FECAL OCCULT BLOO D [facility] Start: 1993 LIPID SCREEN LIPID SCREEN [facility] Start: 1993 SIGMOIDOSCOPY SIGMOIDOSCOPY [facility] Start: 1988 Mammography MAMMOGRAM [facility] Start: 11-13-1967 Urine microalbumin profile DTAP,TDAP,TD (1 - Tdap) [facility] Start: 1966 HEPATITIS C SCREENING HEPATITIS C SC REENING [facility] Start: 1960 Adult depression screening assessment DEPRESSION SCREENING [facility] Comprehensive metabo lic 1999 panel - Serum or Plasma [facility] Comprehensive metabo lic 1999 panel - Serum or Plasma [facility] DXA Skeletal system.axial Views for bone density [facility] End: 03-03-2023 DXA-AXIAL SKELETON DXA-AXIAL SKELETON Radiology Routine Encounter for screening for osteoporosis 1 Occurrences starting 02/01/2022 until 03/03/2023 [facility] Work Phone: Comment on above: 1 Occurrences starti ng 02/01/2022 until 03/03/2023 MG Breast - bilatera l Screening [facility] Immunizations Immunization Date Immunization Notes Care Provider Cecy brown 11-16-2023 influenza, high dose seasonal, preservative-free [facility] 11-16-2023 influenza, live, intranasal, quadrivalent [facility] 11-28-2022 influenza virus vaccine, unspecified formulation [facility] 11-28-2022 influenza, high dose seasonal, preservative-free Kar Mota Other [facility] Other 11-26-2021 influenza virus vaccine, split virus (incl. purified surface antigen) Kar Mota Other [facility] Other 11-26-2021 influenza virus vaccine, unspecified formulation [facility] 05-30-2021 COVID-19 Vaccine Pfi zer - Documentation Purposes Only Kar Mota Other [facility] 12-04-2020 influenza virus vaccine, split virus (incl. purified surface antigen) Kar Mota Other [facility] Other 12-04-2020 influenza virus vaccine, unspecified formulation [facility] 11-22-2020 COVID-19 Vaccine Pfi zer - Documentation Purposes Only Kar Mota Other [facility] 04-18-2020 COVID-19 Vaccine Pfi zer - Documentation Purposes Only Kar Mota Other [facility] 03-28-2020 COVID-19 mRNA, Comirnaty (Pfizer) [facility] 03-28-2020 COVID-19 Vaccine Moderna - Documentation Purposes Only Kar Mota Other [facility] 11-07-2019 influenza virus vaccine, split virus (incl. purified surface antigen) Kar Mota Other [facility] Other 11-07-2019 influenza virus vaccine, unspecified formulation [facility] 11-26-2018 influenza virus vaccine, split virus (incl. purified surface antigen) Kar Mota Other [facility] Other 11-26-2018 influenza virus vaccine, unspecified formulation [facility] 12-07-2017 influenza virus vaccine, split virus (incl. purified surface antigen) Kar Mota Other [place] [facility] Other 12-07-2017 influenza virus vaccine, unspecified formulation [facility] 12-19-2016 influenza virus vaccine, split virus (incl. purified surface antigen) Kar Mota Other [place] [facility] Other 12-19-2016 influenza virus vaccine, unspecified formulation [facility] 12-01-2015 influenza virus vaccine, split virus (incl. purified surface antigen) Kar Mota Other [facility] Other 12-01-2015 influenza virus vaccine, unspecified formulation [facility] 05-15-2015 pneumococcal conjuga te vaccine, 13 valent Kar Mota Other [facility] 12-10-2014 influenza virus vaccine, split virus (incl. purified surface antigen) Kar Mota Other [facility] Other 12-10-2014 influenza virus vaccine, unspecified formulation [facility] 12-18-2013 tetanus and diphther ia toxoids, adsorbed, preservative free, for adult use (5 Lf of tetanus toxoid and 2 Lf of diphtheria toxoid) Kar Mota Other [facility] 2013 pneumococcal polysaccharide vaccine, 23 valent Kar Mota Other [facility] 12-17-2012 tetanus and diphther ia toxoids, adsorbed, preservative free, for adult use (5 Lf of tetanus toxoid and 2 Lf of diphtheria toxoid) Kar Mota Other [facility] Payers Date Payer Category Payer Private Health Insurance 2017 Medicare [employer] MEDICARE [employer] MEDICARE PPO [id number] 2017-Present [id number] [place] [address] PPO [id number] 1959 Medicare [id number] 1950 Unknown [id number] [id number] .59 1950 Unknown [id number] 2.16.840.1.032415.3.579.2 .59 1950 Unknown [id number] 2.16.840.1.971069.3.579.2 .59 1950 Unknown [id number] 2.16.840.1.590948.3.579.2 .593 1950 Unknown [id number] 2.16.840.1.473776.3.579.2 .593 1948 Unknown [id number] 2.16.840.1.481230.3.579.2 .593 1948 Unknown [id number] 2.16.840.1.849541.3.579.2 .593 1948 Unknown [id number] 2.16.840.1.716248.3.579.2 .593 1948 Unknown [id number] 2.16.840.1.359185.3.579.2 .593 1948 Unknown [id number] 2.16.840.1.476183.3.579.2 .593 1948 Unknown [id number] 2.16.840.1.497474.3.579.2 .593 1948 Unknown [id number] 2.16.840.1.132756.3.579.2 .196 1950 Unknown [id number] 2.16.840.1.085077.3.579.2 .196 Self-pay Self Pay [id number] Social History Date Type Detail Facility Start: 08-27-2021 End: 10-15-2021 Tobacco smoking status MIIS Ex-smoker [facility] History of tobacco use Current smoker [facility] History of tobacco use Cigarette Smoker [facility] Start: 10-15-2021 Tobacco use and exposure Smokeless tobacco non-user [facility] Start: 10-15-2021 End: 02-01-2022 Alcohol intake Lifetime non-drinker (finding) [facility] Start: 1950 Sex Assigned At Not on file C [facility] Start: 10-05-2021 End: 10-15-2021 Exposure to SARS-CoV-2 (event) Not sure [facility] Sex Assigned At Sex Assigned At [facility] Start: 1950 Sex Assigned At Female F [facility] Start: 02-29-2024 End: 07-11-2024 Sex Female (finding) [facility] Clinical Notes 10-15-2021 to 05-08-2024 Note Date & Type Note Facility 05-08-2024 Evaluation note Diagnosis Onset Date Resolution Carpal tunnel syndrome on both sides acute May 08, 2024 8:54am Chronic kidney disease acute [facility] 2024 8:54am Elevated BP without diagnosis of hypertension acute May 08, 2024 8:54am VALDEZ (generalized anxiety disorder) acute May 08, 2024 8:54am GERD (gastroesophageal reflux disease) acute May 08, 2024 8:54am 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 April 8:54am Pernicious anemia acute April 272024 8:54am [facility] Work Phone: 1(745) 888-395503-12-2025 Evaluation note* Diagnosis Onset Date Resolution Status Admit Date Carpal tunnel syndrome on alberto th sides acute May 08, 2024 8:54am Chronic kidney disease acute [facility] 2024 8:54am Elevated BP without diagnosi s of hypertension acute May 08, 2024 8:54am VALDEZ (generalized anxiety disorder) acute May 08, 2024 8:54am GERD (gastroesophageal reflu x disease) acute May 08, 2024 8:54am 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 April 8:54am Pernicious anemia acute April 272024 8:54am Pernicious anemia acute May 282024 8:51am [facility] Work Phone: 1(309) 740-726701-29-2024 Evaluation note* Encounter Date Diagnosis Assessment Notes [...] increased frequency > 3/24 hours and watery [facility] 11-27-2023 Evaluation note* Encounter Date Diagnosis Assessment Notes Treatment Notes Treatment Clinical Notes Dec, Pain in thoracic spine (ICD-10 - M54.6) [facility] 10-02-2023 Evaluation note* Encounter Date Diagnosis Assessment Notes Treatment Notes Treatment Clinical Notes Nov, Lumbar spondylosis (ICD-10 - M47.816) [facility] 07-31-2023 Evaluation note* Encounter Date Diagnosis [...] may cause increased bloating. Trial of Miralax [facility] 07-31-2023 Evaluation note* Encounter Date Diagnosis [...] may cause increased bloating. Trial of Miralax [facility] 12-06-2022 NoteHNO ID: [id number] Author: Wellington Hong MD Service: ? Author [...] information obtained and documented by the physician junior administrative assistant. I examined the patient and [...] when sitting. No partha (more content not included)...[facility]12-06-2022 Instructions* Patient Instructions* Ancelmo Sandoval PA-C [...] care provider on file. REFERRING PROVIDER: Ancelmo Bonus, PA-C SUBJECTIVE HISTORY OF PRESENT ILLNESS: Courtney [...] information obtained and documented by the physician junior administrative assistant. I examined the patient and [...] Past Histories independently gathered by the clinical logistics support and the remaining scribed note accurately [...] this in February, given her 's illness.[facility] [id number] Note CONSULTATION PROCEDURE DATE: 12/21/2021 CHIEF COMPLAINT: [...] has responded well to this treatment. [facility] [id number] NoteCONSULTATION CONSULTATION DATE: 11/30/2021 CHIEF COMPLAINT: Low [...] patient has been seen by [facility] with regards to the possibility of surgical [...] to maintain the communication with [facility] to see whether other options are available. We will repeat the testosterone cypionate on her return visit. The patient understands and would like to proceed. CC: Kathrine Marcial M.D.[facility] [id number] NoteCONSULTATION PROCEDURE DATE: 11/23/2021 PREOPERATIVE DIAGNOSIS: Lumbar [...] try to attain a neutral posture laterally.[facility] [id number] NoteCONSULTATION CONSULTATION DATE: 11/23/2021 CHIEF COMPLAINT: Left leg pain, low back pain. HISTORY OF PRESENT ILLNESS: This is a very pleasant, 71-year-old female who is known to [facility]. The patient has an MRI of her lumbar spine, CT of the thoracic and CT of the lumbar spine. The patient has severe rotoscoliosis. The patient was seen at the [facility]. The patient states she is functioning well; [...] like to proceed. CC: Kathrine Marcial M.D.[facility] [id number] Miscellaneous Notes* Telephone Encounter - Cesilia Adler - 11/16/2021 1:46 PM EDT Received the following record(s) via fax. -MRI [facility] wo(report) Date 11/03/21 Record(s) scanned into pt's [...] authenticated by: JEFF FREGOSO Date: 2021-11-03 18:57[facility] [id number] NotePROCEDURE: CT TSPINE WO CON, CT LSPINE [...] Electronically authenticated by: JEFF FREGOSO Date: 2021-11-03 18:57[facility]08-19-2022 NoteHNO ID: [id number] Author: Ancelmo Sandoval PA-C Service: ? Author Type: Physician Professor Of Communication Arts Type: Progress Notes Filed: 10/18/2021 8:52 AM [...] neuromuscular referral to (more content not included)... [facility] note* Diagnosis Scoliosis of thoracolumbar spine, unspecified scoliosis type documented in this encounter [facility] note* Diagnosis Encounter for screening for osteoporosis- Primary Special screening for osteoporosis documented in this encounter [facility] noteNo InformationNort Glook[place] Other Evaluation note* Diagnosis Onset Date Resolution Status Chronic kidney disease acute Elevated BP without diagnosis of hypertension acute VALDEZ (generalized anxiety disorder) acute GERD (gastroesophageal reflux disease) acute 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 Medicare annual wellness visit, subsequent noneactive Screening mammogram for breast cancer noneactive [facility] Work Phone: Evaluation noteNo assessment information available [facility] Work Phone: Evaluation note* Diagnosis Onset Date Resolution Status Admit Date Carpal tunnel syndrome on alberto th sides acute May 08, 2024 8:54am Chronic kidney disease acute [facility] 2024 8:54am Elevated BP without diagnosi s of hypertension acute May 08, 2024 8:54am VALDEZ (generalized anxiety disorder) acute May 08, 2024 8:54am GERD (gastroesophageal reflu x disease) acute May 08, 2024 8:54am 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 April 8:54am Pernicious anemia acute April 272024 8:54am [facility] Work Phone: Evaluation note* Diagnosis Onset Date Resolution Status Admit Date Carpal tunnel syndrome on alberto th sides acute September 16, 2024 8:54am Chronic kidney disease acute 2024 8:54am VALDEZ (generalized anxiety disorder) acute September 16, 2024 8:54am GERD (gastroesophageal reflu x disease) acute September 16, 2024 8:54am Hypertension acute September 16 8:54am 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 September 16, 2024 8:54am Osteoporosis acute September 16, 8:54am Pernicious anemia acute September 162024 8:54am Medicare annual wellness vis it, subsequent noneactive September 16, 2024 8:54am Screening mammogram for [facility] cancer noneactive September 16, 2024 8:54am [facility] Work Phone: History general Narrative - [...] Colonoscopy 2021 Hospitalization History SEE SURGICAL HX [facility] Other Reason for referral (narrative)* Diagnostic Procedure Only (Routine) - Closed Specialty Diagnoses / Procedures Referred By Mouna mclean Referred To Contact XR IMAGING Diagnoses Scoliosis of thoracolumbar spine, unspecified scoliosis type Procedures XR SCOLIOSIS PA STAND/LAT 2V RADEX ENTIR THRC LMBR CRV SAC SPI W/SKULL 2/3 Ancelmo Wild PA-C [id number] [place] [address] Xr Imaging Referral ID Status Reason Start Date Expiration Date V isits Requested Visits Authorized [id number] Closed Auto-Generate d Referral 10/15/2021 11/14/2022 1 1 [facility]No reason for referral information availableMer[facility] Work Phone: Reason for visit Narrative* Diagnostic Procedure Only (Routine) - Closed Specialty Diagnoses / Procedures Referred By Contac t Referred To Contact XR IMAGING Diagnoses Scoliosis of thoracolumbar spine, unspecified scoliosis type Procedures XR SCOLIOSIS PA STAND/LAT 2V RADEX ENTIR THRC LMBR CRV SAC SPI W/SKULL 2/3 VW Ancelmo Sandoval PA-C [id number] [place] [address] Xr Imaging Referral ID Status Reason Start Date Expiration Date V isits Requested Visits Authorized [id number] Closed Auto-Generate d Referral 10/15/2021 11/14/2022 1 1 [facility] Summary Purpose Family History No Family History Records Found Relationship Condition Age at Onset Recorded Date/T hoda Not Specified Arthritis Unknown father Hypertension Unknown Heart problem Unknown Diabetes mellitus Unknown Not Specified Family history of mental disorder Unknow n Anxiety Unknown Relationship Condition Age at Onset Recorded Date/T hoda mother Arthritis Unknown father Hypertension Unknown Heart problem Unknown Diabetes mellitus Unknown mother Family history of mental disorder Unknown Anxiety Unknown Advance Directives No Advanced Directives Records Found Advance Directive Response Recorded Date/ Time Advance [...] 08, 2024 8:54am GERD (gastroesophageal reflux disease) [facility] 2024 8:54am Kyphoscoliosis due to degeneration of [...] 08, 2024 8:54am GERD (gastroesophageal reflux disease) [facility] 2024 8:54am Kyphoscoliosis due to degeneration [...] 16, 2024 8:54am GERD (gastroesophageal reflux disease) [facility] 2024 8:54am Hypertension September 16, 2024 8:54 am 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 September 16, 2024 8:54am Osteoporosis September 16, 2024 8:54 am Pernicious anemia September 16, 2024 8:54 am Medicare annual wellness visit, subseque nt September 16, 2024 8:54am Screening mammogram for breast cancer [facility] 2024 8:54am Additional Source Comments INFORMATION SOURCE (unrecogn ized section and content) DATE CREATED AUTHOR 09/02/2021 [facility] DATE CREATED AUTHOR AUTHOR'S ORGANIZ ATION 03/07/[address] [facility] DATE CREATED AUTHOR AUTHOR'S ORGANIZ ATION 07/13/2022 [facility] DATE CREATED AUTHOR AUTHOR'S ORGANIZ ATION 10/11/2024 [facility] Source Comments (unrecognize d [...] 2024 Team Status: Active Member Role Status Dates Kar Ball , DO Primary Care Provide r, Attending [...] Status: Active Member Role Status Dates Kar Mtoa , DO Primary Care Provider Active Start: [...] March 07, 2024 End: March 07, 2024 Goals (unrecognized section and content) Goals [...] BE BASED ON THE PRIMARY CLINICAL RECORDS. [employer] provides no warranty or guarantee of the accuracy or completeness of information in this document.
--- NOTE | 2024-10-15 08:32 | MM_ITS ---
Patient Name: KIMBERLY LUJAN MR#: [id number] : 1950 Exam Date: 10/15/2024 Ordering Doctor: DR HORTENCIA BHARDWAJ D.O. RADIOLOGY REPORT PROCEDURE: MM TOMOSYNTHESIS SCREENING BI COMPARISON: MM DIAGNOSTIC MAMMO UNILAT LT, 08/21/2023. MM TOMOSYNTHESIS SCREENING BI, 08/08/2023. MG MAMM SCREEN 3D VIJAYA CAD, 03/08/2022. MG MAMM SCREEN 3D VIJAYA CAD, 12/07/2020. INDICATIONS: Screening Calculator Name NCI Breast Cancer Risk Assessment Tool 5 Year Breast Cancer Risk 2.30% Lifetime Breast Cancer Risk 5.00% Personal Breast Cancer No Personal Ovarian Cancer No Treatments None Family Cancers Aunt-paternal with breast cancer at age 50. LOCATION: [facility] BREAST COMPOSITION: The breasts are extremely dense, which lowers the sensitivity of mammography. FINDINGS: RIGHT BREAST: No significant suspicious finding. Benign-appearing calcifications are present paired LEFT BREAST: No significant suspicious finding. There is a similar focal asymmetry with the biopsy clip. Benign-appearing calcifications are present. DIAGNOSTIC CATEGORY 2--BENIGN FINDING: RECOMMENDATIONS: ROUTINE MAMMOGRAM AND CLINICAL EVALUATION IN 12 MONTHS. PLEASE NOTE: A NORMAL MAMMOGRAM DOES NOT EXCLUDE THE POSSIBILITY OF BREAST CANCER. A CLINICALLY SUSPICIOUS PALPABLE LUMP SHOULD BE BIOPSIED. Dictated by: Reginald Villegas MD on 10/15/2024 at 14:32 Approved by: Reginald Villegas MD on 10/15/2024 at 14:44
[2024-10-15 08:54] LABS: Hematocrit 35.0 % (36.0-48.0); Hemoglobin 11.8 g/dL (12.0-16.0); Immature Granulocytes Abs Auto 0.02 10^3/uL (0.00-0.03); Immature Granulocytes Pct Auto 0.3 % (0.0-0.5); Lymphocytes Absolute Auto 1.9 10^3/uL (1.2-3.8); Mean Corpuscular HGB Conc 33.7 g/dL (29.9-35.2); Mean Corpuscular Hemoglobin 31.6 pg (26.7-34.0); Mean Corpuscular Volume 93.6 fL (81.0-99.0); Platelet Count 310 10^3/uL (150-450); Red Blood Count 3.74 10^6/uL (4.20-5.40); White Blood Count 6.6 10^3/uL (4.0-11.0)
[2024-10-15 09:29] LABS: Alanine Aminotransferase 21 U/L (14-59); Albumin Globulin Ratio 0.9; Albumin Level 3.7 g/dL (3.4-5.0); Alkaline Phosphatase 68 U/L (46-116); Anion Gap 13.2; Aspartate Amino Transferase 20 U/L (15-37); Blood Urea Nitrogen 22.0 mg/dL (7.0-18.0); Calcium 9.6 mg/dL (8.5-10.1); Carbon Dioxide 27.7 mmol/L (21.0-32.0); Chloride 105 mmol/L (98-107); Estimated GFR (African America 54 (>=60 mL/min/1.73m^2); Estimated GFR (Non-African Ame 45 (>=60 mL/min/1.73m^2); Globulin 4.0 g/dL; Glucose 104 mg/dL (74-106); Potassium 3.9 mmol/L (3.5-5.1); Sodium 142 mmol/L (136-145); Total Protein 7.7 g/dL (6.4-8.2)
[2024-10-15 09:33] LABS: Microalbum Creatinine Ratio Ur 19.9 mg/g (0.0-29.9)
== END 2024-10-15 08:19 | disposition home or self-care (01) ==
LOC: LAB 08:19
PROVIDERS: PCP Internal Medicine; Visit Provider Internal Medicine
DX: Z12.31 Encounter for screening mammogram for malignant neoplasm of breast (principal); D51.0 Vitamin B12 deficiency anemia due to intrinsic factor deficiency; N18.31 Chronic kidney disease, stage 3a; E55.9 Vitamin D deficiency, unspecified; M81.0 Age-related osteoporosis without current pathological fracture; Z80.3 Family history of malignant neoplasm of breast; M85.88 Other specified disorders of bone density and structure, other site; I12.9 Hypertensive chronic kidney disease with stage 1 through stage 4 chronic kidney disease, or unspecified chronic kidney disease
CPT/HCPCS: 36415; 77063; 77067; 77080; 80053; 82043; 82306; 82570; 85025

== ENCOUNTER 2024-11-06 08:33 | Outpatient (OUT) | payer MEDICARE, SELFPAY ==
--- OUTSIDE RECORDS SUMMARY | 2024-11-06 08:52 | XMS_ITS | CCD ---
Author Organization [facility] CliniSyri Care Team Providers Care Mercury Cracking Tester Name Role Phone Unavailable Primary Care Provider [...] KIMBERLY ., DR DUC Smith Attending Unavailable KMIBERLY ., DR DUC Smith Admitting Unavailable AGGIE, DR MANJULA Hart Primary Care Unavailable AGGIE, DR MANJULA Hart Consulting Unavailable KIMBERLY ., DR DUC Smith Consulting Unavailable Nakul Kar Unavailable Kar Mota DO Primary Care Provider [phone] Kar Mota DO Attending Provider [phone] Cassie VALE, Clifton Sena Attending Unavailable Cassie VALE, Clifton Sena Attending Unavailable Kar Mota DO Primary Care Provider Kar Mota DO Attending Provider Allergies Allergy Classification Reported Allergen(s) Allergy Type Date of Onset Reaction(s) Facility (14 sources) Amoxicillin; Translations: [AMOXICILLIN] Drug Allergy 2 Anaphylaxis [facility] Comment on above: Onset Date: 02/08/20 16 (14 sources) NITROFURANTOIN, MACROCRYSTALS / Nitrofurantoin, Monohydrate; Translations: [NITROFURANTOIN MONOHYD/M-CRYST] Drug Allergy 2 Anaphylaxis [facility] (20 sources) Sulfonamides (Antibiotic); Translations: [SULFA (SULFONAMIDE ANTIBIOTICS)] Drug Allergy 2 Anaphylaxis [facility] (1 source) Amoxicillin Drug Allergy 1 [facility] (2 sources) Nitrofurantoin Drug Allergy 3 [facility] (2 sources) Sulfonamides (Antibiotic) Drug allergy (disorder) 3 [facility] (10 sources) Amoxicillin-Pot Clavulanate Drug allergy 6 Unknown [email or web address] Other (10 sources) Clavulanate Drug Allergy 4 Unknown Reaction [facility] Comment on above: Onset Date: 02/08/20 16 (10 sources) Nitrofurantoin Drug Allergy 4 Difficulty Breathing [facility] Medications Current Medications Medication Drug Class(es) Dates Sig (Normalized) Sig (Original) acetaminophen 500 mg oral tablet (10 sources) Start: 08-27-2021 azithromycin 250 mg oral tablet (2 sources) Macrolide Antimicrobial Start: 03-27-2023 Azithromycin 250 MG as directed Orally daily for 5 days Feb, Active baclofen 10 mg oral tablet (20 sources) gamma-Aminobutyric Acid-ergic Agonist Start: 08-21-2018 take 1 tablet by mouth once daily at bedtime Comment on above: Take 10 mg by mouth daily at bedtime. calcium carbonate 1500 mg / cholecalciferol 200 unt oral tablet (10 sources) Vitamin D Start: 08-27-2021 take 1 tablet by mouth twice daily docusate sodium 50 mg / sennosides, nursing home 8.6 mg oral tablet (3 sources) Start: 12-26-2022 take 8.6-50 mg by mouth once daily in the evening as needed Senokot S 8.6-50 MG 1 tablet as needed Orally q evening for 30 days Nov, Active Vit C,Q-Mh-Nzkrv-Lutein-Z eaxan (Preservision Areds-2) 250-90-40-1 mg Capsule (10 sources) Start: 08-27-2021 Start: 08-27-2021 Vit C,E-Zn-Sash Repairer yk-Ccpzbb-Qqxybu (Preservision Areds-2) 250-90-40-1 mg Capsule Active 1 TAB PO Twice daily August 27, 2021 12:00am Complies with drug therapy Start: 08-27-2021 Vit C,E-Zn-Sash Repairer fm-Mvrwpk-Hlpnow (Preservision Areds-2) 250-90-40-1 mg Capsule Active 1 TAB PO Twice daily August 26, 2021 11:00pm Start: 08-27-2021 Vit C,E-Zn-Sash Repairer tz-Jibbsj-Pqqrni (Preservision Areds-2) 250-90-40-1 mg Capsule Active 1 TAB PO Twice daily August 27, 2021 12:00am 100 ml zoledronic acid 0.05 mg/ml injection (13 sources) Bisphosphonate Start: 08-27-2021 take 5 mg intravenou sly once zoledronic acid (RECLAST) 5 mg/100 mL pgbk [...] Discontinued 200 MG PO Twice daily 360 90 November 13, 2023 1:52pm May 08, 2024 [...] tablet (20 sources) Nonsteroidal Anti-inflammatory Drug Start: 2 End: 5 take 1 tablet by mouth twice daily Nabumetone 750 mg tablet Discontinued 750 MG PO Twice daily 180 November 13, 2023 1:51pm May 08, 2024 9:26am omeprazole 40 mg delayed release oral capsule (13 sources) Proton Pump Inhibitor Start: 2 End: 5 take 1 capsule by mouth twice daily Omeprazole 40 mg capsule,delayed release(DR/EC) Discontinued 40 MG PO Twice daily 168 84 August 27, 2021 12:00am May 08, 2024 9:19am Comment on above: TAKE 1 CAPSULE BY MO [facility] 2 TIMES DAILY FOR 12 [...] anxiety disorder] 08-01-2023 Chronic Chronic kidney disease (16 sources) Chronic kidney disease; Translations: [Chronic kidney disease, unspecified] 08-03-2023 Chronic Conditions associated with dizziness or vertigo (14 sources) Benign paroxysmal positional vertigo; Translations: [Benign paroxysmal vertigo, unspecified ear] Onset: 4 Episodic Deficiency and other anemia (12 sources) Anemia; Translations: [Anemia, unspecified] 08-03-2023 Episodic Deficiency and other anemia (10 sources) Pernicious anemia; Translations: [Vitamin B12 deficiency anemia due to intrinsic factor deficiency] 02-15-2024 Episodic Deficiency and other anemia (4 sources) Vitamin B12 deficiency anemia due to intrinsic factor deficiency; Translations: [Pernicious anemia] 05-08-2024 Episodic Esophageal disorders (16 sources) Gastroesophageal reflux disease; Translations: [Gastro-esophageal reflux disease without esophagitis] 08-01-2023 Chronic Essential hypertension (4 sources) Hypertensive disorder; Translations: [Essential (primary) hypertension] [...] mastopathy of unspecified breast] Chronic Nutritional deficiencies (17 sources) Vitamin D deficiency, unspecified; Translations: [Vitamin [...] of thoracolumbar region] Chronic Other acquired deformities (16 sources) Other secondary scoliosis, site unspecified; 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] 08-01-2023 Chronic Other aftercare (2 sources) Other skilled nursing (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; Translations: [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 CURRENT DRUG THERAPY] Onset: 2 Episodic Other aftercare (6 sources) Long-term current use of drug therapy; Translations: [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] Episodic Other bone disease [...] syndrome] 05-08-2024 Chronic Other nervous system disorders (4 sources) Bilateral carpal tunnel syndrome; Translations: [Carpal [...] conditions (not mental disorders or infectious disease) (17 sources) Patient encounter status; Translations: [Encounter for [...] Test Name Value Interpretation Reference Range Facility Microalbumin [Mass/volume] i n UrineOrdered By: Kar Mota on 10-15-2024 Albumin DL <= 20 mg/L (U) [Mass/Vol] 3.4 mg/dL <=30.0 [facility] No Panel InformationOrdered By: Kar Mota on 10-15-2024 25-Hydroxy Vitamin D Total 67.2 ng/mL [facility] Comment on above: <20 ng/mL Vit D defi cient20-<30 ng/mL Vit D [id number] ng/mL Vit D sufficient>100 ng/mL Potential Toxicity Urine Random Creatinine 170.08 mg/dL 20.00-300. 00 [facility] Urine microalbumin/creatinin e mass ratioOrdered By: Kar Mota on 10-15-2024 Albumin/Creatinine DL <= 20 mg/L (U) [Mass ratio] 19.9 mg/g 0.0-29.9 [facility] Comment on above: NO MICROALBUMINURIA 0-29 MG/GCLINICAL MICROALBUMINURIA 30-300 MG/GMACROALBUMINURIA >300 MG/G Basophils Auto (Bld) [#/Vol] on 05-03-2024 Basophils (Bld) [#/Vol] Automated basoph il count 0.0-0.1 [facility] Basophils/100 WBC Auto (Bld) on 05-03-2024 Basophils/100 WBC (Bld) Automated basophil % 0. 2-2.0 [facility] Eosinophils/100 WBC Auto (Bl d)on 05-03-2024 Eosinophils/100 WBC (Bld) Automated eosinophil % 0.9-7.0 [facility] Erythrocyte distribution wid th Auto (RBC) [Ratio]on 05-03-2024 Erythrocyte distribution width (RBC) [Ratio] Erythrocyte distribution width [Ratio] by Automated count 11.0-15.0 [facility] Hematocrit Auto (Bld) [Volum e fraction]on 05-03-2024 Hematocrit (Bld) [Volume fraction] Hematocrit [Volume Fraction] of Blood by Automated count Low 36.0-48.0 [facility] Hemoglobin [Mass/volume] in Bloodon 05-03-2024 Hemoglobin (Bld) [Mass/Vol] Hemoglobin [Mass/volume] in Blood Low 12.0-16.0 [facility] Laboratory - Hematology and Cell countson 05-03-2024 Immature granulocytes/100 WBC (Bld) 0.4 % 0.0-0.5 [facility] Leukocytes [#/volume] correc ric for nucleated erythrocytes in Blood by Automated counon 05-03-2024 WBC corrected for nucl RBC Auto (Bld) [#/Vol] Leukocytes [#/volume] corrected for nucleated erythrocytes in Blood by Automated coun 4.0-11.0 [facility] Lymphocytes Auto (Bld) [#/Vo l]on 05-03-2024 Lymphocytes (Bld) [#/Vol] Lymphocytes [#/volume] in Blood by Automated count 1.2-3.8 [facility] Lymphocytes/100 WBC Auto (Bl d)on 05-03-2024 Lymphocytes/100 WBC (Bld) Lymphocytes/100 leukocytes in Blood by Automated count 20.5-60.0 [facility] MCH Auto (RBC) [Entitic mass ]on 05-03-2024 MCH (RBC) [Entitic mass] MCH [Entitic mass] by Automated count 26.7-34.0 [facility] MCHC Auto (RBC) [Mass/Vol]on 05-03-2024 MCHC (RBC) [Mass/Vol] MCHC [Mass/volume] by Automated count 29.9-35.2 [facility] MCV Auto (RBC) [Entitic vol] on 05-03-2024 MCV (RBC) [Entitic vol] MCV [Entitic vol ume] by Automated count 81.0-99.0 [facility] Monocytes Auto (Bld) [#/Vol] on 05-03-2024 Monocytes (Bld) [#/Vol] Automated blood monocyte count 0.3-0.8 [facility] Monocytes/100 WBC Auto (Bld) on 05-03-2024 Monocytes/100 WBC (Bld) Automated monocyte % 1. 7-12.0 [facility] Neutrophils Auto (Bld) [#/Vo l]on 05-03-2024 Neutrophils (Bld) [#/Vol] Neutrophils [#/volume] in Blood by Automated count 1.4-6.5 [facility] Neutrophils/100 WBC Auto (Bl d)on 05-03-2024 Neutrophils/100 WBC (Bld) Automated neutrophil % 43.0-75.0 [facility] No Panel Informationon 05-03 Eosinophils # (Auto) 0.2 10 3/uL 0.0-0.7 [facility] Immature Granulocyte # (Auto) 0.02 10 3/uL 0.00-0.03 [facility] Platelet mean volume Auto (B ld) [Entitic vol]on 05-03-2024 Platelet mean volume (Bld) [Entitic vol] Platelet mean volume [Entitic volume] in Blood by Automated count Low 9.5-13.5 [facility] Platelets Auto (Bld) [#/Vol] on 05-03-2024 Platelets (Bld) [#/Vol] Platelets [#/vol ume] in Blood by Automated count 150-450 [facility] RBC Auto (Bld) [#/Vol]on RBC (Bld) [#/Vol] Erythrocytes [#/volume] in Blood by Automated count Low 4.20-5.40 [facility] Basophils Auto (Bld) [#/Vol] on 02-09-2024 Basophils (Bld) [#/Vol] Automated basoph il count 0.0-0.1 [facility] Basophils/100 WBC Auto (Bld) on 02-09-2024 Basophils/100 WBC (Bld) Automated basophil % 0. 2-2.0 [facility] Eosinophils/100 WBC Auto (Bl d)on 02-09-2024 Eosinophils/100 WBC (Bld) Automated eosinophil % 0.9-7.0 [facility] Erythrocyte distribution wid th Auto (RBC) [Ratio]on 02-09-2024 Erythrocyte distribution width (RBC) [Ratio] Erythrocyte distribution width [Ratio] by Automated count 11.0-15.0 [facility] Estimated glomerular filtrat ion rate (GFR) non- Americanon 02-09-2024 GFR/1.73 sq M.predicted among non-blacks MDRD (S/P/Bld) [Vol rate/Area] Estimated glomerular filtration rate (GFR) non- Low >=60 mL/min/1.73m 2 [facility] Hematocrit Auto (Bld) [Volum e fraction]on 02-09-2024 Hematocrit (Bld) [Volume fraction] Hematocrit [Volume Fraction] of Blood by Automated count Low 36.0-48.0 [facility] Hemoglobin [Mass/volume] in Bloodon 02-09-2024 Hemoglobin (Bld) [Mass/Vol] Hemoglobin [Mass/volume] in Blood Low 12.0-16.0 [facility] Iron binding capacity [Mass/ volume] in Serum or Plasmaon 02-09-2024 Iron binding capacity [Mass/Vol] Iron binding capacity [Mass/volume] in Serum or Plasma 250.0-450.0 [facility] Iron saturation [Mass Fracti on] in Serum or Plasmaon 02-09-2024 Iron saturation [Mass fraction] Iron saturation [Mass Fraction] in Serum or Plasma [facility] Laboratory - Chemistry and C hemistry - challengeon 02-09-2024 Calcium [Mass/Vol] 9.8 mg/dL 8.5-10.1 [facility] Chloride [Moles/Vol] 107 mmol/L 98-107 [facility] CO2 [Moles/Vol] 31.1 mmol/L 21.0-32.0 [facility] Cobalamin (Vitamin B12) [Mass/Vol] 250 pg/mL 232-1245 [facility] Comment on above: Performed at: [place] [id number] Director: Primo Richard PhD, Phone: [phone] Creatinine [Mass/Vol] 1.25 mg/dL High 0.55-1.02 [facility] Ferritin [Mass/Vol] 28.0 ng/mL 8.0-252.0 [facility] GFR/1.73 sq M.predicted MDRD (S/P/Bld) [Vol rate/Area] 51 mL/min/{1.73_m2} Low >=60 mL/min/1.73m 2 [facility] Glucose [Mass/Vol] 87 mg/dL 74-106 [facility] Iron [Mass/Vol] 122.0 ug/dL 50.0-170.0 [facility] Potassium [Moles/Vol] 4.1 mmol/L 3.5-5.1 [facility] Sodium [Moles/Vol] 147 mmol/L High 136-145 [facility] Urea nitrogen [Mass/Vol] 20.0 mg/dL High 7.0-18.0 [facility] Urea nitrogen/Creatinine [Mass ratio] 16.0 mg/mg [facility] Laboratory - Hematology and Cell countson 02-09-2024 Immature granulocytes/100 WBC (Bld) 0.2 % 0.0-0.5 [facility] Leukocytes [#/volume] correc ric for nucleated erythrocytes in Blood by Automated counon 02-09-2024 WBC corrected for nucl RBC Auto (Bld) [#/Vol] Leukocytes [#/volume] corrected for nucleated erythrocytes in Blood by Automated coun 4.0-11.0 [facility] Lymphocytes Auto (Bld) [#/Vo l]on 02-09-2024 Lymphocytes (Bld) [#/Vol] Lymphocytes [#/volume] in Blood by Automated count 1.2-3.8 [facility] Lymphocytes/100 WBC Auto (Bl d)on 02-09-2024 Lymphocytes/100 WBC (Bld) Lymphocytes/100 leukocytes in Blood by Automated count 20.5-60.0 [facility] MCH Auto (RBC) [Entitic mass ]on 02-09-2024 MCH (RBC) [Entitic mass] MCH [Entitic mass] by Automated count 26.7-34.0 [facility] MCHC Auto (RBC) [Mass/Vol]on 02-09-2024 MCHC (RBC) [Mass/Vol] MCHC [Mass/volume] by Automated count 29.9-35.2 [facility] MCV Auto (RBC) [Entitic vol] on 02-09-2024 MCV (RBC) [Entitic vol] MCV [Entitic vol ume] by Automated count 81.0-99.0 [facility] Monocytes Auto (Bld) [#/Vol] on 02-09-2024 Monocytes (Bld) [#/Vol] Automated blood monocyte count 0.3-0.8 [facility] Monocytes/100 WBC Auto (Bld) on 02-09-2024 Monocytes/100 WBC (Bld) Automated monocyte % 1. 7-12.0 [facility] Neutrophils Auto (Bld) [#/Vo l]on 02-09-2024 Neutrophils (Bld) [#/Vol] Neutrophils [#/volume] in Blood by Automated count 1.4-6.5 [facility] Neutrophils/100 WBC Auto (Bl d)on 02-09-2024 Neutrophils/100 WBC (Bld) Automated neutrophil % 43.0-75.0 [facility] No Panel Informationon 02-08 Eosinophils # (Auto) 0.1 10 3/uL 0.0-0.7 [facility] Folate 21.20 ng/mL 8.60-58.90 [facility] Immature Granulocyte # (Auto) 0.01 10 3/uL 0.00-0.03 [facility] Platelet mean volume Auto (B ld) [Entitic vol]on 02-09-2024 Platelet mean volume (Bld) [Entitic vol] Platelet mean volume [Entitic volume] in Blood by Automated count Low 9.5-13.5 [facility] Platelets Auto (Bld) [#/Vol] on 02-09-2024 Platelets (Bld) [#/Vol] Platelets [#/vol ume] in Blood by Automated count 150-450 [facility] RBC Auto (Bld) [#/Vol]on RBC (Bld) [#/Vol] Erythrocytes [#/volume] in Blood by Automated count Low 4.20-5.40 [facility] Serum or plasma anion gap de terminationon 02-09-2024 Anion gap [Moles/Vol] Serum or plasma anion gap determination [facility] Estimated glomerular filtrat ion rate (GFR) non- Americanon 12-15-2023 GFR/1.73 sq M.predicted among non-blacks MDRD (S/P/Bld) [Vol rate/Area] Estimated glomerular filtration rate (GFR) non- Low >=60 mL/min/1.73m 2 [facility] Laboratory - Chemistry and C hemistry - challengeon 12-15-2023 Calcium [Mass/Vol] 9.7 mg/dL 8.5-10.1 [facility] Chloride [Moles/Vol] 106 mmol/L 98-107 [facility] CO2 [Moles/Vol] 29.9 mmol/L 21.0-32.0 [facility] Creatinine [Mass/Vol] 1.26 mg/dL High 0.55-1.02 [facility] GFR/1.73 sq M.predicted MDRD (S/P/Bld) [Vol rate/Area] 50 mL/min/{1.73_m2} Low >=60 mL/min/1.73m 2 [facility] Glucose [Mass/Vol] 91 mg/dL 74-106 [facility] Potassium [Moles/Vol] 3.7 mmol/L 3.5-5.1 [facility] Sodium [Moles/Vol] 143 mmol/L 136-145 [facility] Urea nitrogen [Mass/Vol] 21.0 mg/dL High 7.0-18.0 [facility] Urea nitrogen/Creatinine [Mass ratio] 16.7 mg/mg [facility] No Panel Informationon 12-14 25-Hydroxy Vitamin D Total 68.1 ng/mL [facility] Comment on above: <20 ng/mL Vit D defi cient20-<30 ng/mL Vit D xjzblowtvlng71-306 ng/mL Vit D sufficient>100 ng/mL Potential Toxicity Serum or plasma anion gap de terminationon 12-15-2023 Anion gap [Moles/Vol] Serum or plasma anion gap determination [facility] CBC AUTO DIFFon 03-08-2022 BASO # 0.0 103/ul Normal 0.0-0.1 [facility] Comment on above: Performed By: #### C BC ####[facility] [address] [place] [address]DrAryan [facility] Basophils/100 WBC (Bld) 0.7 % Normal 0.2-2.0 [facility] Comment on above: Performed By: #### C BC ####[facility] [address] [place] [address]DrAryan [facility] EO # 0.1 103/ul Normal 0.0-0.7 [facility] Comment on above: Performed By: #### C BC ####[facility] [address] [place] [address]Dr. Tanner [facility] Eosinophils/100 WBC (Bld) 1.5 % Normal 0.9-7.0 [facility] Comment on above: Performed By: #### C BC ####[facility] [address] [place] [address]Dr. Tanner [facility] Erythrocyte distribution width (RBC) [Ratio] 13.2 % Normal 11.0-15.0 [facility] Comment on above: Performed By: #### C BC ####[facility] [address] [place], [place] [address]Dr. Tanner [facility] Hematocrit (Bld) [Volume fraction] 34.1 % Critically low 36.0-48.0 [facility] Comment on above: Performed By: #### C BC ####[facility] [address] [place], [place] [address]Dr. Tanner [place] Hemoglobin (Bld) [Mass/Vol] 11.7 g/dL Critically low 12.0-16.0 [facility] Comment on above: Performed By: #### C BC ####[facility] [address] [place], [place] [address]Dr. Tanner [place] IG # 0.02 10e3/ul Normal 0.00-0.03 [facility] Comment on above: Performed By: #### C BC ####[facility] [address] [place], [place] [address]Dr. Tanner [place] IG % 0.4 % Normal 0.0-0.5 [facility] Comment on above: Performed By: #### C BC ####[facility] [address] [place], [place] [address]Dr. Tanner [facility] LYMPH # 1.2 103/ul Normal 1.2-3.8 [facility] Comment on above: Performed By: #### C BC ####[facility] [address] [place], [place] [address]Dr. Tanner [facility] Lymphocytes/100 WBC (Bld) 25.6 % Normal 20.5-60.0 [facility] Comment on above: Performed By: #### C BC ####[facility] [address] [place] [address]Dr. Tanner Los MANUAL DIFF REQ NO [facility] Comment on above: Performed By: #### C BC ####[facility] [address] [place] [address]Dr. Tanner [facility] MCH (RBC) [Entitic mass] 30.9 pg Normal 26.7-34.0 [facility] Comment on above: Performed By: #### C BC ####[facility] [address] [place], [place] [address]Dr. Tanner Los MCHC (RBC) [Mass/Vol] 34.3 g/dL Normal 29.9-35.2 [facility] Comment on above: Performed By: #### C BC ####[facility] [address] [place], [place] [address]Dr. Tanner Los MCV (RBC) [Entitic vol] 90.0 fL Normal 81.0-99.0 [facility] Comment on above: Performed By: #### C BC ####[facility] [address] [place], [place] [address]Dr. Tanner Los MONO # 0.4 103/ul Normal 0.3-0.8 [facility] Comment on above: Performed By: #### C BC ####[facility] [address] [place], [place] [address]Dr. Virginiasunita [facility] Monocytes/100 WBC (Bld) 7.6 % Normal 1.7-12.0 [facility] Comment on above: Performed By: #### C BC ####[facility] [address] [place], [place] [address]Dr. Virginiasunita Los NEUT # 3.0 103/ul Normal 1.4-6.5 [facility] Comment on above: Performed By: #### C BC ####[facility] [address] [place], [place] [address]Dr. Tanner [facility] Neutrophils/100 WBC (Bld) 64.2 % Normal 43.0-75.0 [facility] Comment on above: Performed By: #### C BC ####[facility] [address] [place] [id number]. Tanner [facility] Platelet mean volume (Bld) [Entitic vol] 8.5 fL Critically low 9.5-13.5 [facility] Comment on above: Performed By: #### C BC ####[facility] [address] [place] [id number]. Tanner [facility] PLT 269 103/ul Normal 150-450 [facility] Comment on above: Performed By: #### C BC ####[facility] [address] [place], [place] [address]Kc. Tanner [facility] RBC 3.79 106/ul Critically low 4.20-5.40 [facility] Comment on above: Performed By: #### C BC ####[facility] [address] [place] [id number]. Tanner [place] WBC 4.6 103/ul Normal 4.0-11.0 [facility] Comment on above: Performed By: #### C BC ####[facility] [address] [place] [id number]. Tanner [facility] MG MAMM SCREEN 3D VIJAYA CADon 03-08-2022 MG MAMM SCREEN 3D VIJAYA CAD Patient: COURTNEY WHITE Exam Date: 03/08/2022 : 1950 Gender:F Ordering : DR KAR MOTA D.O. Admission #: [id number] Family : Order #: [id number] CLICK HERE TO VIEW EXAM RADIOLOGY REPORT [...] breast cancer at age 48. LOCATION: [facility] BREAST COMPOSITION: Extremely dense, which lowers [...] Fregoso MD on 03/08/2022 at 12:18 Normal [facility] PROF CHEM 8 (BAS METB)on Anion gap [Moles/Vol] 11.0 mmol/L Normal [facility] Comment on above: Performed By: #### T SH, BMP #### [facility] [address] [place] [address] Dr. Tanner [facility] Calcium [Mass/Vol] 9.5 mg/dL Normal 8.5-10.1 [facility] Comment on above: Performed By: #### T SH, BMP #### [facility] [address] [place] [address] Dr. Tanner [facility] Chloride [Moles/Vol] 103 mmol/L Normal 98-107 [facility] Comment on above: Performed By: #### T SH, BMP #### [facility] [address] [place] [address] Dr. Tanner [facility] CO2 [Moles/Vol] 30.1 mmol/L Normal 21.0-32.0 [facility] Comment on above: Performed By: #### T SH, BMP #### [facility] [address] [place] [address] Dr. Tanner [facility] Creatinine [Mass/Vol] 0.98 mg/dL Normal 0.55-1.02 [facility] Comment on above: Performed By: #### T SH, BMP #### [facility] [address] [place] [address] Dr. Tanner [place] EGFR-AF CAMEROONIAN >60 Normal >=60 [facility] Comment on above: Performed By: #### T SH, BMP #### [facility] [address] [place] [address] Dr. Tanner [facility] EGFR-NON AF CAMEROONIAN 56 mL/min/1.73m2 Critically low >=60 [facility] Comment on above: Performed By: #### T SH, BMP #### [facility] [address] [place] [address] [address] Tanner [facility] Glucose [Mass/Vol] 91 mg/dL Normal 74-106 [facility] Comment on above: Performed By: #### T SH, BMP #### [facility] [address] [place] [address] [address] Tanner [facility] Potassium [Moles/Vol] 4.1 mmol/L Normal 3.5-5.1 [facility] Comment on above: Performed By: #### T SH, BMP #### [facility] [address] [place] [address] [address] Tanner [facility] Sodium [Moles/Vol] 140 mmol/L Normal 136-145 [facility] Comment on above: Performed By: #### T SH, BMP #### [facility] [address] [place] [address] Dr. Tanner Madison Urea nitrogen [Mass/Vol] 14.0 mg/dL Normal 7.0-18.0 [facility] Comment on above: Performed By: #### T SH, BMP #### [facility] [address] [address] [address] Tanner Madison Urea nitrogen/Creatinine [Mass ratio] 14.3 mg/mg Normal [facility] Comment on above: Performed By: #### T SH, BMP #### [facility] [address] [place] [address] Dr. Tanner Madison TSHon 03-08-2022 TSH 2.659 uIU/mL Normal 0.358-3.740 [facility] Comment on above: Performed By: #### T SH, BMP #### [facility] [address] [address] [address] Tanner Madison VITAMIN D 25 OHon 03-08-2022 VIT D 25-OH 63.4 ng/mL Normal [facility] Comment on above: Performed By: #### V ITAD ####[facility] [address] [address]Dr. Tanner Madison VIT D RANGES SEE BELOW Normal [facility] Comment on above: Result Comment: <20 ng/mL Vit D deficient 20 - <30 ng/mL Vit D insufficient 30 - 100 ng/mL Vit D sufficient >100 ng/mL Potential Toxicity Performed By: #### V ITAD ####[facility] [place], [place] [address]PeAryan Madison XR DEXA BONE DENSITYon 03-08 XR [...] by: MARTA ELIAS Date: 2022-03-08 10:52 Normal [facility] 11-16-2021 SAEED Telephone (NIQ) COURTNEY WHITE ([id number]) 1950 F Date Time Provider Department 11/16/21 [...] Status:Closed by RAYSA RICO on 11/23/21 Normal [facility] MRI LSPINE WO CONon 11-05-19 [...] MARTA ELIAS Date: 2021-11-04 06:33 Normal [facility] MRI TSPINE WO CONon 11-04-19 22 MRI [facility] WO CON EXAMINATION: MRI TSPINE WO CON [...] JEFF FREGOSO Date: 2021-11-03 19:07 Normal [facility] VIT D 25-OH [facility] 2021 Vitamin D, 25-Hydroxy 69.8 ng/mL Normal 30.0-100.0 [facility] Comment on above: Result Comment: Negar min D deficiency has been defined by the [place] of [employer] and an Endocrine Society practice guideline as a level of serum 25-OH vitamin D less than 20 ng/mL (1,2). The Endocrine Society went on to further define vitamin D insufficiency as a level between 21 and 29 ng/mL (2). 1. IOM ([place] of Medicine). 2010. Dietary reference intakes for calcium and D. [place]: The National Academies Press. 2. Mikal DAWN, Jayy LEMOS, iZ MACHADO, et al. Evaluation, treatment, and prevention of vitamin D deficiency: an Endocrine Society clinical practice guideline. JCEM. 2010; 96(7):1911-30. Performed By: #### V ITAD #### [facility] [address] [address] [address] Tanner Madison CBC AUTO DIFFon 10-28-2021 BASO # 0.0 103/ul Normal 0.0-0.1 [facility] Comment on above: Performed By: #### C BC #### [facility] [address] [place] [address] Dr. Tanner Madison Basophils/100 WBC (Bld) 0.6 % Normal 0.2-2.0 [facility] Comment on above: Performed By: #### C BC #### [facility] [address] [place] [address] Dr. Tanner Madison EO # 0.1 103/ul Normal 0.0-0.7 [facility] Comment on above: Performed By: #### C BC #### [facility] [address] [place] [address] Dr. Tanner Madison Eosinophils/100 WBC (Bld) 1.1 % Normal 0.9-7.0 [facility] Comment on above: Performed By: #### C BC #### [facility] [address] [place] [address] Dr. Tanner Madison Erythrocyte distribution width (RBC) [Ratio] 13.5 % Normal 11.0-15.0 [facility] Comment on above: Performed By: #### C BC #### [facility] [address] [place] [address] Dr. Tanner Madison Hematocrit (Bld) [Volume fraction] 31.7 % Critically low 36.0-48.0 [facility] Comment on above: Performed By: #### C BC #### [facility] [address] [place] [address] Dr. Tanner Madison Hemoglobin (Bld) [Mass/Vol] 10.8 g/dL Critically low 12.0-16.0 [facility] Comment on above: Performed By: #### C BC #### [facility] [address] [place] [address] Dr. Tanner Madison IG # 0.01 10e3/ul Normal 0.00-0.03 [facility] Comment on above: Performed By: #### C BC #### [facility] [address] [place] [address] Dr. Tanner Madison IG % 0.2 % Normal 0.0-0.5 [facility] Comment on above: Performed By: #### C BC #### [facility] [address] [place] [address] Dr. Tanner Madison LYMPH # 1.3 103/ul Normal 1.2-3.8 [facility] Comment on above: Performed By: #### C BC #### [facility] [address] [place] [address] Dr. Tanner Madison Lymphocytes/100 WBC (Bld) 24.0 % Normal 20.5-60.0 [facility] Comment on above: Performed By: #### C BC #### [facility] [address] [place] [address] Dr. Tanner Madison MANUAL DIFF REQ NO [facility] Comment on above: Performed By: #### C BC #### [facility] [address] [place] [address] Dr. Tanner Madison MCH (RBC) [Entitic mass] 31.0 pg Normal 26.7-34.0 [facility] Comment on above: Performed By: #### C BC #### [facility] [address] [place] [address] Dr. Tanner Madison MCHC (RBC) [Mass/Vol] 34.1 g/dL Normal 29.9-35.2 [facility] Comment on above: Performed By: #### C BC #### [facility] [address] [place] [address] Dr. Tanner Madison MCV (RBC) [Entitic vol] 91.1 fL Normal 81.0-99.0 [facility] Comment on above: Performed By: #### C BC #### [facility] [address] [place] [address] Dr. Tanner Madison MONO # 0.5 103/ul Normal 0.3-0.8 [facility] Comment on above: Performed By: #### C BC #### [facility] [address] [place] [address] Dr. Tanner Madison Monocytes/100 WBC (Bld) 8.3 % Normal 1.7-12.0 [facility] Comment on above: Performed By: #### C BC #### [facility] [address] [place] [address] Dr. Tanner Madison NEUT # 3.6 103/ul Normal 1.4-6.5 [facility] Comment on above: Performed By: #### C BC #### [facility] [address] [place] [address] Dr. Tanner Madison Neutrophils/100 WBC (Bld) 65.8 % Normal 43.0-75.0 [facility] Comment on above: Performed By: #### C BC #### [facility] [address] [place] [address] Dr. Tanner Madison Platelet mean volume (Bld) [Entitic vol] 8.6 fL Critically low 9.5-13.5 [facility] Comment on above: Performed By: #### C BC #### [facility] [address] [place] [address] Dr. Tanner Madison PLT 234 103/ul Normal 150-450 [facility] Comment on above: Performed By: #### C BC #### [facility] [address] [place] [address] Dr. Tanner Madison RBC 3.48 106/ul Critically low 4.20-5.40 [facility] Comment on above: Performed By: #### C BC #### [facility] [address] [place] [address] Dr. Tanner Madison WBC 5.4 103/ul Normal 4.0-11.0 [facility] Comment on above: Performed By: #### C BC #### [facility] [address] [place] [address] Dr. Tanner Madison PROF CHEM 8 (BAS METB)on Anion gap [Moles/Vol] 12.7 mmol/L Normal [facility] Comment on above: Performed By: #### B MP ####[facility] [address] [id number]. Tanner Madison Calcium [Mass/Vol] 9.2 mg/dL Normal 8.5-10.1 [facility] Comment on above: Performed By: #### B MP ####[facility] [address] [id number]. Tanner Madison Chloride [Moles/Vol] 102 mmol/L Normal 98-107 [facility] Comment on above: Performed By: #### B MP ####[facility] [address] [address]Dr. Tanner Madison CO2 [Moles/Vol] 30.4 mmol/L Normal 21.0-32.0 [facility] Comment on above: Performed By: #### B MP ####[facility] [address] [place], [place] [address]Dr. Tanner Madison Creatinine [Mass/Vol] 1.07 mg/dL Critically high 0.55-1.02 [facility] Comment on above: Performed By: #### B MP ####[facility] [address] [address]Dr. Tanner Madison EGFR-AF CAMEROONIAN >60 Normal >=60 [facility] Comment on above: Performed By: #### B MP ####[facility] [address] [place], [place] [address]Dr. Tanner Los EGFR-NON AF CAMEROONIAN 50 mL/min/1.73m2 Critically low >=60 [facility] Comment on above: Performed By: #### B MP ####[facility] [address] [place], [place] [address]Dr. Tanner Madison Glucose [Mass/Vol] 99 mg/dL Normal 74-106 [facility] Comment on above: Performed By: #### B MP ####[facility] [address] [place], [place] [address]Dr. Tanner Madison Potassium [Moles/Vol] 4.1 mmol/L Normal 3.5-5.1 [facility] Comment on above: Performed By: #### B MP ####[facility] [address] [place], [place] [address]Ge. Tanner Madison Sodium [Moles/Vol] 141 mmol/L Normal 136-145 [facility] Comment on above: Performed By: #### B MP ####[facility] [address] [place], [place] [address]Sz. Tanner Madison Urea nitrogen [Mass/Vol] 16.0 mg/dL Normal 7.0-18.0 [facility] Comment on above: Performed By: #### B MP ####[facility] [address] [place], [place] [address]Bi. Tanner Madison Urea nitrogen/Creatinine [Mass ratio] 15.0 mg/mg Normal [facility] Comment on above: Performed By: #### B MP ####[facility] [address] [place], [place] [address]Xr. Tanner Madison CNOVon 10-15-2021 CNOV Office Visit (SPNMMN) COURTNEY WHITE ([id number]) 1950 F Date Time Provider Department 10/15/21 2:00 PM ANCELMO SANDOVAL [facility] During your visit today, we recorded [...] short period (more content not included)... Normal [facility] XR SCOLIOSIS 2V PA STAND/LAT [...] abnormality. IMPRESSION: Thoracolumbar scoliosis and degenerative changes. [employer] Machine Tender: PSCB Transcribe Date/Time: Oct 15 2021 2:52P Dictated by : CHETNA HERNANDEZ MD This examination was interpreted and the report reviewed and electronically signed by: CHETNA HERNANDEZ MD on Oct 15 2021 2:54PM EST [id number] Normal [facility] XR SCOLIOSIS PA STAND/LAT 2V on 10-15-2021 [facility] Rufus 08-27-2021 L Specimen: [id number] Received: 08/27/21 Status: VINOD Albaradotung Num: [id number] Spec Type: Surgical Subm Dr: Will Ma MD Tissues: A Gastric Biopsy (GASTRIC BXS) Procedures: HE Stain/2, Gross/Micro L4 Patient Age/Sex Location Account Attending Physician Courtney White 70/F [id number] Will Ma MD SPEC NUM: [id number] RECD: 08/27/21 STATUS: VINOD GARCIA NUM: [id number] JHONNY: 08/27/21 DR: Will Ma MD ENTERED: 08/27/[address] [facility] [address]: SON TYPE: Surgical DEPT: [...] microscopic findings support the above pathologic diagnosis. [id number] Specimen: [id number] Received: 08/27/21 Status: VINOD Garcia Num: [id number] Spec Type: Surgical Subm Dr: Will Ma MD Tissues: A Gastric Biopsy (GASTRIC BXS) Procedures: HE Stain/2, Gross/Micro L4 Patient: Courtney White [id number] (Continued) Signed (signature on file) Nisreen Marquez MD 08/31/21 1656 Normal [facility] [facility] SARS-CoV-2 (COVID-19) RNA JEFFRY+probe Ql (Unsp spec) Negative Normal Negative [facility] Comment on above: Order Comment: Healt hcare Worker?: N Result Comment: Testing for SARS-CoV-2 by RT-PCR This test was developed and its performance characteristics determined by [employer]) and validated at the [facility]. This test has not been [...] is terminated or revoked sooner. PERFORMED BY: [place] [id number] PATHOLOGIST FOREST [employer]REFIGHTER NISREEN MARQUEZ M.D. Performed By: #### C OVID [address] [facility] #### [address] [id number] [facility] Vital Signs Date Time Vital Sign Value Performing Clinician Facility 09-16-2024 09:23-0400 Body height 160.02 cm Kar Ball DO Work Phone: [facility] 09-16-2024 09:23-0400 Body mass index (BMI) [Ratio] 19 kg/m2 Kar Ball DO Work Phone: [facility] 09-16-2024 09:23-0400 Body weight 48.7 kg Kar Ball DO Work Phone: [facility] 09-16-2024 09:23-0400 Diastolic blood pressure 68 mm[Hg] Kar Ball DO Work Phone: [facility] 09-16-2024 09:23-0400 Heart rate 71 /min Kar Ball DO Work Phone: [facility] 09-16-2024 09:23-0400 Respiratory rate 12 /min Kar Ball DO Work Phone: [facility] 09-16-2024 09:23-0400 Systolic blood pressure 139 mm[Hg] Kar Ball DO Work Phone: [facility] 05-08-2024 08:59-0400 Body height 160.02 cm [facility] 05-08-2024 08:59-0400 Body mass index (BMI) [Ratio] 20.2 kg/m2 [facility] 05-08-2024 08:59-0400 Body weight 51.93 kg [facility] 05-08-2024 08:59-0400 Diastolic blood pressure 89 mm[Hg] [facility] 05-08-2024 08:59-0400 Heart rate 70 /min [facility] 05-08-2024 08:59-0400 Respiratory rate 12 /min [facility] 05-08-2024 08:59-0400 Systolic blood pressure 139 mm[Hg] [facility] 08-03-2023 10:08-0400 Body height 160.02 cm [facility] 08-03-2023 10:08-0400 Body mass index (BMI) [Ratio] 19.7 kg/m2 [facility] 08-03-2023 10:08-0400 Body weight 50.57 kg [facility] 08-03-2023 10:08-0400 Diastolic blood pressure 81 mm[Hg] [facility] 08-03-2023 10:08-0400 Heart rate 70 /min [facility] 08-03-2023 10:08-0400 Respiratory rate 12 /min [facility] 08-03-2023 10:08-0400 Systolic blood pressure 150 mm[Hg] [facility] 09-26-2022 10:30-0400 Body height 160.02 cm Kar Ball Other [email or web address] [facility] [employer] Other 09-26-2022 10:30-0400 Body mass index (BMI) [Ratio] 19.31 kg/m2 Kar Ball Other [email or web address] [facility] [employer] Other 09-26-2022 10:30-0400 Body weight 49.44 kg Kar Ball Other [email or web address] [facility] [employer] Other 09-26-2022 10:30-0400 Diastolic blood pressure 75 mm[Hg] Kar Ball Other [email or web address] [facility] [employer] Other 09-26-2022 10:30-0400 Respiratory rate 12 /min Kar Ball Other [email or web address] Other 09-26-2022 10:30-0400 Systolic blood pressure 166 mm[Hg] Kar Mota Other [facility] [employer] Other 02-01-2022 10:22-0500 Body height 160 cm Wellington Hong MD Work Phone: [facility] 02-01-2022 10:22-0500 Body weight 49.9 kg Wellington Hong MD Work Phone: [facility] 02-01-2022 10:22-0500 Diastolic blood pressure 76 mm[Hg] Wellington Hong MD Work Phone: [facility] 02-01-2022 10:22-0500 Heart rate 71 /min Wellington Hong MD Work Phone: [facility] 02-01-2022 10:22-0500 Respiratory rate 14 /min Wellington Hong MD Work Phone: [facility] 02-01-2022 10:22-0500 SaO2% (BldA) [Mass fraction] 98 % Wellington Hong MD Work Phone: [facility] 02-01-2022 10:22-0500 Systolic blood pressure 168 mm[Hg] Wellington Hong MD Work Phone: [facility] Encounters Encounter Date Encounter Type Care Provider Facility Start: 10-17-2024 End: 10-17-2024 ambulatory Kar Mota DO Work Phone: [facility] Work Phone: Start: 10-17-2024 End: 10-17-2024 Patient encounter procedure Kar Mota DO -[facility] Work Phone: Start: 10-15-2024 Non-patient / Non-visit Kar downey DO -[facility] Work Phone: Start: 09-30-2024 End: 09-30-2024 ambulatory Clifton Matthews MD Facility: [facility] Start: 09-16-2024 End: 09-16-2024 ambulatory Kar Mota DO Work Phone: [facility] Work Phone: Start: 09-16-2024 End: 09-16-2024 Patient encounter procedure Kar Mota DO -[facility] Work Phone: Start: 08-12-2024 End: 08-12-2024 Patient encounter procedure Kar Mota DO -[facility] Work Phone: Start: 07-11-2024 End: 07-11-2024 ambulatory [facility] Work Phone: Start: 07-11-2024 End: 07-11-2024 Patient encounter procedure [facility] Work Phone: Start: 06-07-2024 End: 06-07-2024 ambulatory [facility] Work Phone: Start: 06-07-2024 End: 06-07-2024 Patient encounter procedure [facility] Physician [facility] Work Phone: Start: 05-08-2024 End: 05-08-2024 ambulatory [facility] Work Phone: Start: 05-08-2024 End: 05-08-2024 Patient encounter procedure [facility] Physician [facility] Work Phone: Start: 05-03-2024 Non-patient / Non-visit [facility] Phys[facility] Work Phone: Start: 04-08-2024 End: 04-08-2024 ambulatory [facility] Work Phone: Start: 04-08-2024 End: 04-08-2024 Patient encounter procedure [facility] Physician [facility] Work Phone: Start: 03-07-2024 End: 03-07-2024 ambulatory [facility] Work Phone: Start: 03-07-2024 End: 03-07-2024 Patient encounter procedure [facility] Physician [facility] Work Phone: Start: 02-29-2024 End: 02-29-2024 ambulatory [facility] Work Phone: Start: 02-29-2024 End: 02-29-2024 Patient encounter procedure [facility] Physician [facility] Work Phone: Start: 02-22-2024 End: 02-22-2024 Patient encounter procedure [facility] Physician [facility] Work Phone: Start: 02-19-2024 End: 02-19-2024 ambulatory Clifton Matthews MD Facility:[facility] Start: 02-15-2024 End: 02-15-2024 Patient encounter procedure [facility] Physician [facility] Work Phone: Start: 02-09-2024 Non-patient / Non-visit [facility] Phys[facility] Work Phone: Start: 12-15-2023 Non-patient / Non-visit [facility] Phys[facility] Work Phone: Start: 11-16-2023 End: 11-16-2023 ambulatory [facility] Work Phone: Start: 11-16-2023 End: 11-16-2023 Patient encounter procedure [facility] Physician [facility] Work Phone: Start: 08-03-2023 End: 08-03-2023 ambulatory [facility] Work Phone: Start: 08-03-2023 End: 08-03-2023 Patient encounter procedure [facility] Physician [facility] Work Phone: Start: 07-19-2023 Non-patient / Non-visit [facility] Physician [facility] Work Phone: Start: 03-27-2023 End: 03-27-2023 ambulatory [facility] Other [email or web address] Other Start: 03-27-2023 Office outpatient vi sit 15 minutes Kar Mota [facility] Start: 03-27-2023 Telephone encounter Kar Mota [facility] Start: 01-23-2023 End: 01-23-2023 ambulatory Kar Mota Other [email or web address] Other Start: 01-23-2023 Telephone encounter Kar Mota [facility] Start: 11-29-2022 End: 11-29-2022 ambulatory Kar Mota Other [email or web address] Other Start: 11-29-2022 Telephone encounter Kar Mota [facility] Start: 11-28-2022 End: 11-28-2022 ambulatory Kar Mota Other [email or web address] Other Start: 11-28-2022 Nursing evaluation o f patient and report Kar Mota [facility] Start: 11-28-2022 Telephone encounter Kar Mota [facility] Start: 10-04-2022 End: 10-04-2022 ambulatory Kar Mota Other [email or web address] Other Start: 10-04-2022 Telephone encounter Kar Mota [facility] Start: 09-26-2022 End: 09-26-2022 ambulatory Kar Mota Other [email or web address] Other Start: 09-26-2022 Office outpatient vi sit 15 minutes Kar Mota [facility] Start: 07-14-[address] MANJULA MARCIAL Facil ity:[facility] Start: 05-02-2022 End: 05-03-[address] MANJULA MARCIAL Facility:[facility] Start: 03-08-2022 End: 03-09-[address] MANJULA MARCIAL Facility:[facility] Start: 03-02-2022 End: 03-03-[address] MANJULA MARCIAL Facility:[facility] Start: 02-15-2022 Adult health examination Chris shoaib Mota Other [email or web address] Other Start: 02-01-2022 End: 02-01-2022 ambulatory ANCELMO SANDOVAL Facility:[facility] Start: 02-01-2022 End: 02-01-2022 Patient encounter procedure Wellington Hong MD Work Phone: [facility] Comment on above: Encounter for screen ing for osteoporosis (Primary Dx) Start: 01-18-2022 End: 01-19-[address] MANJULA MARCIAL Facility:[facility] Start: 12-21-2021 End: 12-22-[address] MANJULA MARCIAL Facility:[facility] Start: 11-30-2021 End: 12-01-[address] DUC HARRIS . Facility:[facility] Start: 11-23-2021 End: 11-24-[address] DUC HARRIS . Facility:[facility] Start: 11-16-2021 Telephone encounter Ancelmo ELLISONC Work Phone: Neurology Comment on above: Results Start: 11-11-2021 End: 11-11-[address] KAR MOTA Facility:[facility] Start: 11-03-2021 End: 11-04-[address] KAR MOTA Facility:[facility] Start: 10-28-2021 End: 10-29-[address] KAR MOTA Facility:[facility] Start: 10-15-2021 End: 10-15-2021 ambulatory ANCELMO SANDOVAL Facility:[facility] Start: 10-15-2021 End: 10-15-2021 Subsequent hospital visit by physician [facility] Comment on above: Scoliosis of thoraco lumbar spine, unspecified scoliosis type [M41.9] Procedures Date Procedure Procedure Detail Performing Clinician Start: 09-16-2024 MM screening mammo B I w/CAD Kar Mota DO Work Phone: Start: 10-15-2021 Radex entir thrc lmb r crv sac spi w/skull 2/3 vw Ancelmo Sandoval PA-C Work Phone: Start: 07-07-2016 Screening for malign ant neoplasm of colon Kar Mota Other Depression screening Aguilar Mota Other Screening for malign ant neoplasm of breast Kar Mota Other Plan of Treatment Date Care Activity Detail Author Start: 02-27-2022 ADVANCE DIRECTIVE DISCUSSION ADVANCE DIRECTIVE DISCUSSION [facility] Start: 02-27-2022 DEPRESSION ASSESSMENT DEPRESSION ASS ESSMENT [facility] Start: 10-28-2021 Influenza vaccination INFLUENZA (#1) [facility] Start: 07-25-2021 COVID-19 VACCINE (5 - Booster for Pfizer series) COVID-19 VACCINE (5 - Booster for Pfizer series) [facility] Start: 02-27-2021 ADVANCE DIRECTIVE DISCUSSION ADVANCE DIRECTIVE DISCUSSION [facility] Start: 02-27-2021 DEPRESSION ASSESSMENT DEPRESSION ASS ESSMENT [facility] Start: 2013 BONE DENSITY BONE DENSITY [facility] Start: 2013 PNEUMOCOCCAL: 65+ (1 - PCV) PNEUMOCOCCAL: 65+ (1 - PCV) [facility] Start: 1998 SHINGRIX VACCINE (1 of 2) SHINGRIX VACCINE (1 of 2) [facility] Start: 1993 COLOGUARD (FIT-DNA) COLOGUARD (FIT-D NA) [facility] Start: 1993 Colonoscopy COLONOSCOPY [facility] Start: 1993 COLORECTAL CANCER SCREENING COLORECTAL CANCER SCREENING [facility] Start: [address] COLONOGRAPHY [facility] Start: 1993 DIABETES SCREEN DIABETES SCREEN [facility] Start: 1993 FECAL OCCULT BLOOD FECAL OCCULT BLOO D [facility] Start: 1993 LIPID SCREEN LIPID SCREEN [facility] Start: 1993 SIGMOIDOSCOPY SIGMOIDOSCOPY [facility] Start: 1988 Mammography MAMMOGRAM [facility] Start: 11-13-1967 Urine microalbumin profile DTAP,TDAP,TD (1 - Tdap) [facility] Start: 1966 HEPATITIS C SCREENING HEPATITIS C SC CIERA [facility] Start: 1960 Adult depression screening assessment DEPRESSION SCREENING [facility] Comprehensive metabo lic 2000 panel - Serum or Plasma [facility] Comprehensive metabo lic 2000 panel - Serum or Plasma [facility] DXA Skeletal system.axial Views for bone density [facility] End: 03-03-2023 DXA-AXIAL SKELETON DXA-AXIAL SKELETON Radiology Routine Encounter for screening for osteoporosis 1 Occurrences starting 02/01/2022 until 03/03/2023 [facility] Work Phone: Comment on above: 1 Occurrences starti ng 02/01/2022 until 03/03/2023 MG Breast - bilatera l Screening [facility] Immunizations Immunization Date Immunization Notes Care Provider Fa cility 11-16-2023 influenza, high dose seasonal, preservative-free [facility] 11-16-2023 influenza, live, intranasal, quadrivalent [facility] 11-28-2022 influenza virus vaccine, unspecified formulation [facility] 11-28-2022 influenza, high dose seasonal, preservative-free Kar Mota Other [facility] ReplySend Other 11-26-2021 influenza virus vaccine, split virus (incl. purified surface antigen) Kar Mota Other [facility] Other 11-26-2021 influenza virus vaccine, unspecified formulation [facility] 05-30-2021 COVID-19 Vaccine Pfi zer - Documentation Purposes Only Kar Mota Other [facility] 12-04-2020 influenza virus vaccine, split virus (incl. purified surface antigen) Kar Mota Other [facility] Other 12-04-2020 influenza virus vaccine, unspecified formulation [facility] 11-22-2020 COVID-19 Vaccine Pfi zer - Documentation Purposes Only Kar Mota Other [facility] 04-18-2020 COVID-19 Vaccine Pfi zer - Documentation Purposes Only Kar Mota Other [facility] 03-28-2020 COVID-19 mRNA, Comirnaty (Pfizer) [facility] 03-28-2020 COVID-19 Vaccine Moderna - Documentation Purposes Only Kar Mota Other [facility] 11-07-2019 influenza virus vaccine, split virus (incl. purified surface antigen) Kar Mota Other [facility] Other 11-07-2019 influenza virus vaccine, unspecified formulation [facility] 11-26-2018 influenza virus vaccine, split virus (incl. purified surface antigen) Kar Mota Other [facility] Other 11-26-2018 influenza virus vaccine, unspecified formulation [facility] 12-07-2017 influenza virus vaccine, split virus (incl. purified surface antigen) Kar Mota Other [facility] Other 12-07-2017 influenza virus vaccine, unspecified formulation [facility] 12-19-2016 influenza virus vaccine, split virus (incl. purified surface antigen) Kar Mota Other [facility] Other 12-19-2016 influenza virus vaccine, unspecified formulation [facility] 12-01-2015 influenza virus vaccine, split virus (incl. purified surface antigen) Kar Mota Other [facility] Other 12-01-2015 influenza virus vaccine, unspecified formulation [facility] 05-15-2015 pneumococcal conjuga te vaccine, 13 valent Kar Mota Other [facility] 12-10-2014 influenza virus vaccine, split virus (incl. purified surface antigen) Kar Mota Other [facility] Other 12-10-2014 influenza virus vaccine, unspecified formulation [facility] 12-18-2013 tetanus and diphther ia toxoids, adsorbed, preservative free, for adult use (5 Lf of tetanus toxoid and 2 Lf of diphtheria toxoid) Kar Mota Other [facility] 2013 pneumococcal polysaccharide vaccine, 23 valent Kar Mota Other [facility] 12-17-2012 tetanus and diphther ia toxoids, adsorbed, preservative free, for adult use (5 Lf of tetanus toxoid and 2 Lf of diphtheria toxoid) Kar Mota Other [facility] Payers Date Payer Category Payer Private Health Insurance 2017 Medicare HUMANA MEDICARE HU[employer]NA MEDICARE PPO [id number] 2017-Present [phone] [address] [address] [place] [address] PPO [id number] 1959 Medicare [id number] 1950 Unknown [id number] .59 1948 Unknown [id number] [id number] .593 1948 Unknown [id number] 2.16.840.1.050673.3.579.2 .59 1948 Unknown [id number] 2.16.840.1.529704.3.579.2 .593 1948 Unknown [id number] 2.16.840.1.643725.3.579.2 .59 1948 Unknown [id number] 2.16.840.1.902693.3.579.2 .593 1948 Unknown [id number] 2.16.840.1.065710.3.579.2 .59 1948 Unknown [id number] 2.16.840.1.296645.3.579.2 .593 1948 Unknown [id number] 2.16.840.1.551001.3.579.2 .59 1948 Unknown [id number] 2.16.840.1.740585.3.579.2 .593 1948 Unknown [id number] 2.16.840.1.585279.3.579.2 .59 1948 Unknown [id number] 2.16.840.1.731304.3.579.2 .196 1948 Unknown [id number] [id number] .196 Self-pay Self Pay [id number] Social History Date Type Detail Facility Start: 08-27-2021 End: 10-15-2021 Tobacco smoking status NHIS Ex-smoker [facility] History of tobacco use Current smoker [facility] History of tobacco use Cigarette Smoker [facility] Start: 10-15-2021 Tobacco use and exposure Smokeless tobacco non-user [facility] Start: 10-15-2021 End: 02-01-2022 Alcohol intake Lifetime non-drinker (finding) [facility] Start: 1950 Sex Assigned At Not on file [facility] Start: 10-05-2021 End: 10-15-2021 Exposure to SARS-CoV-2 (event) Not sure [facility] Sex Assigned At Sex Assigned At [email or web address] Other Start: 1950 Sex Assigned At Female F [facility] Start: 02-29-2024 End: 07-11-2024 Sex Female (finding) [facility] Clinical Notes 10-15-2021 to 09-16-2024 Note Date & Type Note Facility 09-16-2024 Evaluation note Diagnosis Onset Date Resolution Carpal tunnel syndrome on both sides acute September 16, 2024 8:54am Chronic kidney disease acute 2024 8:54am VALDEZ (generalized anxiety disorder) acute September 16, 2024 8:54am GERD (gastroesophageal reflux disease) acute September 16, 2024 8:54am Hypertension acute September 16 025 8:54am 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 September 16, 2024 8:54am Osteoporosis acute September 16 025 8:54am Pernicious anemia acute September 162024 8:54am Medicare annual wellness visit, subsequent noneactive September 16 8:54am Screening mammogram for breast cancer noneactive September 16, 2024 8:54am [facility] Work Phone: 1(394) 375-358103-12-2025 Evaluation note* Diagnosis Onset Date Resolution Status Admit Date Carpal tunnel syndrome on alberto th sides acute May 08, 2024 8:54am Chronic kidney disease acute [facility] 2024 8:54am Elevated BP without diagnosi s of hypertension acute May 08, 2024 8:54am VALDEZ (generalized anxiety disorder) acute May 08, 2024 8:54am GERD (gastroesophageal reflu x disease) acute May 08, 2024 8:54am 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 April 8:54am Pernicious anemia acute April 272024 8:54am [facility] Work Phone: 1(503) 282-842803-12-2025 Evaluation note* Diagnosis Onset Date Resolution Status Admit Date Carpal tunnel syndrome on alberto th sides acute May 08, 2024 8:54am Chronic kidney disease acute [facility] 2024 8:54am Elevated BP without diagnosi s of hypertension acute May 08, 2024 8:54am VALDEZ (generalized anxiety disorder) acute May 08, 2024 8:54am GERD (gastroesophageal reflu x disease) acute May 08, 2024 8:54am 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 April 8:54am Pernicious anemia acute April 272024 8:54am Pernicious anemia acute May 282024 8:51am [facility] Work Phone: 1(596) 221-173901-29-2024 Evaluation note* Encounter Date Diagnosis Assessment Notes [...] increased frequency > 3/24 hours and watery [email or web address] Other 11-27-2023 Evaluation note* Encounter Date Diagnosis Assessment Notes Treatment Notes Treatment Clinical Notes Dec, Pain in thoracic spine (ICD-10 - M54.6) [email or web address] Other 10-02-2023 Evaluation note* Encounter Date Diagnosis Assessment Notes Treatment Notes Treatment Clinical Notes Nov, Lumbar spondylosis (ICD-10 - M47.816) [email or web address] Other 07-31-2023 Evaluation note* Encounter Date Diagnosis [...] may cause increased bloating. Trial of Miralax [email or web address] Other 07-31-2023 Evaluation note* Encounter Date Diagnosis [...] may cause increased bloating. Trial of Miralax [email or web address] Other 12-06-2022 NoteHNO ID: [id number] Author: Wellington Hong MD Service: ? Author [...] information obtained and documented by the physician lead recreation assistant. I examined the patient and evaluated [...] when sitting. No partha (more content not included)...[facility]12-06-2022 Instructions* Patient Instructions* Ancelmo Sandoval [...] activities immediately. [facility] History of Present illness Narrative* Wellington Hong [...] information obtained and documented by the physician lead recreation assistant. I examined the patient and evaluated [...] Past Histories independently gathered by the clinical high school learning support teacher and the remaining scribed note accurately describes my personal service to the patient. Wellington Hong MD documented in this encounterMer[facility]-2022 NoteCONSULTATION CONSULTATION DATE: 01/18/2022 CHIEF COMPLAINT: Low [...] see a spinal surgeon at [facility] in the near future. PHYSICAL EXAM: Upon [...] await the patient's evaluation with [facility]. Subsequent to that, we will make a [...] this in February, given her 's illness.[id number] Note CONSULTATION PROCEDURE DATE: 12/21/2021 CHIEF COMPLAINT: [...] has responded well to this treatment. [id number] NoteCONSULTATION CONSULTATION DATE: 11/30/2021 CHIEF COMPLAINT: Low [...] patient has been seen by [facility] with regards to the possibility of [...] to maintain the communication with [facility] to see whether other options are available. We will repeat the testosterone cypionate on her return visit. The patient understands and would like to proceed. CC: Manjula Marcial M.D.[facility] [id number] NoteCONSULTATION PROCEDURE DATE: 11/23/2021 PREOPERATIVE DIAGNOSIS: Lumbar [...] try to attain a neutral posture laterally.[facility] [id number] NoteCONSULTATION CONSULTATION DATE: 11/23/2021 CHIEF COMPLAINT: Left leg pain, low back pain. HISTORY OF PRESENT ILLNESS: This is a very pleasant, 71-year-old female who is known to the [facility]. The patient has an MRI of her lumbar spine, CT of the thoracic and CT of the lumbar spine. The patient has severe rotoscoliosis. The patient was seen at the [facility]. The patient states she is functioning [...] like to proceed. CC: Manjula Marcial M.D.[facility] [id number] Miscellaneous Notes* Telephone Encounter - Cesilia Adler - 11/16/2021 1:46 PM EDT Received the following record(s) via fax. -MRI tspine wo(report) Date 11/03/21 Record(s) scanned into pt's chart. Cesilia Adler Images requested documented in this encounterMer[facility]09-07-2022 NotePROCEDURE: CT TSPINE WO CON, CT [...] Electronically authenticated by: JEFF FREGOSO Date: 2021-11-03 18:57[facility]09-07-2022 NotePROCEDURE: CT TSPINE WO CON, CT [...] Electronically authenticated by: JEFF FREGOSO Date: 2021-11-03 18:57[facility]08-19-2022 NoteHNO ID: [id number] Author: Ancelmo Sandoval PA-C Service: ? Author Type: Physician Real Estate Clerk Type: Progress Notes Filed: 10/18/2021 8:52 [...] neuromuscular referral to (more content not included)... [facility]* Diagnosis Scoliosis of thoracolumbar spine, unspecified scoliosis type documented in this encounter [facility] note* Diagnosis Encounter for screening for osteoporosis- Primary Special screening for osteoporosis documented in this encounter [facility] noteNo [facility] Other Evaluation note* Diagnosis Onset Date Resolution Status Chronic kidney disease acute Elevated BP without diagnosis of hypertension acute VALDEZ (generalized anxiety disorder) acute GERD (gastroesophageal reflux disease) acute 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 Medicare annual wellness visit, subsequent noneactive Screening mammogram for breast cancer noneactive [facility] Work Phone: Evaluation noteNo assessment information available [facility] Work Phone: Evaluation note* Diagnosis Onset Date Resolution Status Admit Date Carpal tunnel syndrome on alberto th sides acute May 08, 2024 8:54am Chronic kidney disease acute [facility] 2024 8:54am Elevated BP without diagnosi s of hypertension acute May 08, 2024 8:54am VALDEZ (generalized anxiety disorder) acute May 08, 2024 8:54am GERD (gastroesophageal reflu x disease) acute May 08, 2024 8:54am 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 April 8:54am Pernicious anemia acute April 272024 8:54am [facility] Work Phone: Evaluation note* Diagnosis Onset Date Resolution Status Admit Date Carpal tunnel syndrome on alberto th sides acute September 16, 2024 8:54am Chronic kidney disease acute Ju 2024 8:54am VALDEZ (generalized anxiety disorder) acute [...] st cancer noneactive September 16, 2024 8:54am [facility] Work Phone: History general Narrative [...] Colonoscopy 2021 Hospitalization History SEE SURGICAL HX [email or web address] Other Reason for referral (narrative)* Diagnostic Procedure Only (Routine) - Closed Specialty Diagnoses / Procedures Referred By Mouna mclean Referred To Contact XR IMAGING Diagnoses Scoliosis of thoracolumbar spine, unspecified scoliosis type Procedures XR SCOLIOSIS PA STAND/LAT 2V RADEX ENTIR THRC LMBR CRV SAC SPI W/SKULL 2/3 Ancelmo Wild PA-C [id number] [place] [address] Xr Imaging Referral ID Status Reason Start Date Expiration Date V isits Requested Visits Authorized [id number] Closed Auto-Generate d Referral 10/15/2021 11/14/2022 1 1 [facility] for referral (narrative)No reason for referral information available[facility] Work Phone: Reason for visit Narrative* Diagnostic Procedure Only (Routine) - Closed Specialty Diagnoses / Procedures Referred By Contac t Referred To Contact XR IMAGING Diagnoses Scoliosis of thoracolumbar spine, unspecified scoliosis type Procedures XR SCOLIOSIS PA STAND/LAT 2V RADEX ENTIR THRC LMBR CRV SAC SPI W/SKULL 2/3 Ancelmo Wild PA-C [address] [place] [address] Xr Imaging Referral ID Status Reason Start Date Expiration Date V isits Requested Visits Authorized [id number] Closed Auto-Generate d Referral 10/15/2021 11/14/2022 1 1 [facility] Summary Purpose Family History Relationship Condition Age [...] Date Carpal tunnel syndrome on both sides [facility] 2024 8:54am Chronic kidney disease May 08, 2024 8:54am Elevated BP without diagnosis of hyperte nsion May 08, 2024 8:54am VALDEZ (generalized anxiety disorder) May 08, 2024 8:54am GERD (gastroesophageal reflux disease) [facility] 2024 8:54am Kyphoscoliosis due to degeneration [...] Date Carpal tunnel syndrome on both sides [facility] 2024 8:54am Chronic kidney disease May 08, 2024 8:54am Elevated BP without diagnosis of hyperte nsion May 08, 2024 8:54am VALDEZ (generalized anxiety disorder) May 08, 2024 8:54am GERD (gastroesophageal reflux disease) [facility] 2024 8:54am Kyphoscoliosis due to degeneration [...] 16, 2024 8:54am GERD (gastroesophageal reflux disease) [facility] 2024 8:54am Hypertension September 16, 2024 8:54 am 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 September 16, 2024 8:54am Osteoporosis September 16, 2024 8:54 am Pernicious anemia September 16, 2024 8:54 am Medicare annual wellness visit, subseque nt September 16, 2024 8:54am Screening mammogram for breast cancer Ju ly 2024 8:54am Chief Complaint Admit Date B12 shot August 12, 2024 9:05 am Wellness September 16, 2024 8:54 am B12 Shot October 17, 2024 8: 20am Additional Source Comments INFORMATION SOURCE (unrecogn ized section and content) DATE CREATED AUTHOR 09/02/2021 [facility] DATE CREATED AUTHOR AUTHOR'S ORGANIZ ATION 03/07/2022 [facility] DATE CREATED AUTHOR AUTHOR'S ORGANIZ ATION 07/13/2022 [facility] DATE CREATED AUTHOR AUTHOR'S ORGANIZ ATION 10/11/2024 [facility] Source Comments (unrecognize d section and content) In the event this informatio n is protected by the Federal Confidentiality of Alcohol and Drug Abuse Patient Records regulations: The Federal rules restrict any use of the information to criminally investigate or prosecute any alcohol or drug abuse patient.[facility] CenterIn the event this information is protected by the Federal Confidentiality of Alcohol and Drug Abuse Patient Records regulations: The Federal rules restrict any use of the information to criminally investigate or prosecute any alcohol or drug abuse patient.[facility] CenterIn the event this information is protected by the Federal Confidentiality of Alcohol and Drug Abuse Patient Records regulations: The Federal rules restrict any use of the information to criminally investigate or prosecute any alcohol or drug abuse patient.[facility] Reason for Visit (unrecogniz ed section and content) Reason Comments Results Reason Comments New Patient Care Teams (unrecognized sec tion and content) Team Status: Active Member Role Status Narinder Mota DO Primary Care Provider Active Team Status: Inactive Member Role Status Naridner Mota DO Primary Care Provider Active Start: [...] June 07, 2024 End: June 07, 2024 Manjula Marcial MD Attending Provider Active St art: June 07, 2024 End: June 07, 2024 Team Status: Inactive Member Role Status Narinder Mota DO Primary Care Provide r, Attending Provider Active Start: July 11, 2024 End: July 11, 2024 Team Status: Inactive Member Role Status Dates Kar Ball , [...] 2024 End: March 07, 2024 Team Status: Active Member Role Status Narinder Mota DO Primary Care Provider Active Start: October 15, 2024 Kar Mota DO Attending Provider Active Sta rt: October 15, 2024 Team Status: Inactive Member Role Status Narinder Mota , DO Primary Care Provider Active Start: October 17, 2024 End: October 17, 2024 Kar Nakul , DO Attending Provider Active Sta rt: October 17, 2024 End: October 17, 2024 Goals (unrecognized section and content) Goals [...] BE BASED ON THE PRIMARY CLINICAL RECORDS. [facility]. provides no warranty or guarantee of the accuracy or completeness of information in this document.
--- NOTE | 2024-11-06 08:54 | P.CN_ITS ---
Consult Note: HPI Data of Consult Patient: known to practice within the last 3 years Consult date: 09/04/24 Requesting Physician: Hiwot Irving NP Primary Care Provider: Kar Mota DO Consult Narrative Reason for consult: low back and RLE pain Narrative: Courtney dougherty pleasant 73 year old female presents for evaluation of chronic low back pain secondary to scoliosis, lumbar degeneration, and lumbar stenosis. pt has failed to benefit from > 6 weeks of PT/HEP, heat, ice, tylenol, NSAIDs. utilizing nabumetone, tylenol, baclofen, gabapentin with mild relief. pain today 1/10 increasing to 5/10 with activity and mowing. reports improvement with forward flexion and sitting. at last visit we asked pt to increase gabapentin 200mg BID and 100mg mid day, however she could not tolerate due to drowsiness. pt has not been contacted by [facility] in consideration of botox injections, they are requesting her records to review the referral. cc:: CC: Hiwot Irving NP Review of Systems ROS Status of ROS 10 or more systems reviewed and unremark able except as noted in history and below Musculoskeletal Reports: back pain PFSH PFSH Medical History Rheumatoid arthritis ?M06.9 - Rheumatoid arthritis, unspecified (ICD-10) Low back pain ?M54.50 - Low back pain, unspecified (ICD-10) Family history of psychiatric condition ?Z81.8 - Family history of other mental and behavioral disorders (ICD-10) Former smoker ?Z87.891 - Personal history of nicotine dependence (ICD-10) Surgical History History of dilatation and curettage ?Z98.890 - Other specified postprocedural states (ICD-10) Meds Home Medications and Allergies Home Medications ?Medication ?Instructions ?Recorded ?Confirmed ?Type acetaminophen 325 mg tablet (Aphen) 325 mg PO Q6H PRN pain 08/09/22 09/30/24 History tkqbupi-G0-lfz-H5-A59-ztaxlfoqxsrt tab PO .QD 08/09/22 History 500 mg-200 unit-50 mg-1.2 mg tablet nabumetone 750 mg tablet 750 mg PO BID 08/09/2209/30 History vitamins A,C,I-gvwr-tkxtjh 2,148 2 tab PO BID 08/09/22 09/30/24 History mcg-113 mg-45 mg-17.4 mg tablet (Eye Multivitamin) zoledronic acid 5 mg/100 mL in ea IV .YEARLY 08/09/22 History mannitol 5 %-water intravenous piggybck (Reclast) gabapentin 08/16/22 History baclofen 10 mg tablet 10 mg PO DAILY #30 tabs /08/1909/30/24 Rx Allergies Allergy/AdvReac Type Severity Reaction Status Date / Time amoxicillin Allergy Hives Verified 09/30/24 07:47 nitrofurantoin (From Allergy Hives Verified 09/30/24 07:47 Macrobid) Sulfa (Sulfonamide Allergy Hives Verified 09/30/24 07:47 Antibiotics) Exam Constitutional Documenting provider has reviewed patient's vital signs: yes Common normals: no apparent distress, oriented x3, healthy appearing, alert and well nourished General appearance: cooperative HENMT Common normals: normocephalic, hearing grossly normal bilaterally and moist oral mucous membranes Head and scalp: normocephalic Eye Common normals: PERRL Pupil: PERRL Neck & C-Spine Common normals: full ROM General: normal visual inspection Chest Common normals: inspection of chest normal Respiratory Common normals: normal respiratory effort, no retractions and no use of accessory muscles Back & Pelvis Lumbar spine/lower back: ROM limited, pain with ROM and lumbar scoliosis present; straight leg raise negative right Other: sensation intact BLE strength 5/5 in BLE significant myofascial dystonia to thoracic/lumbar column secondary to scoliosis Extremity Common normals: normal to inspection and full ROM Neuro Common normals: oriented x3 Sensorium/orientation: alert Motor exam: no movement abnormalities noted Psych Common normals: mental status grossly normal, thought process normal, cooperative, affect normal, speech normal and activity/motor behavior normal Speech: normal speech Thought process: normal thought process Results Additional Findings Additional findings: If on a controlled substance or opioids, I have checked an [place]AR[place] report on this patient and there are no aberrancies noted in the prescribing history.??If on a controlled substance or opioid a drug screen was completed and reviewed within the last year, and if there has not been a drug screen completed we ordered one today to monitor higher risk, state monitored pain medication use. As part of providing excellent, safe, comprehensive care, the following was completed at our patient's visit: 1. A medication reconciliation and review to ensure accurate knowledge of current/active medications, including asking our patients to inform us about any iyeq-oyl-nefkthu medications or herbal remedies/nutritional supplements/alternative remedies. 2. A review to specifically ensure our patients have had annual screening for screening for depression, screening for tobacco use, and screening for unhealthy alcohol use. For concerning screenings had a discussion with the patient, provided patient education, and recommended follow-up with primary care provider when appropriate. If patient noted with a risk of falling, they received education on strength, gait, and balance training to prevent future risk of falling. Portions of this note may have been carried over from the previous visit and updated as appropriate. Please note this office utilizes paper charting in addition to the electronic medical record. A list of current medications, vitals, and PMH is available there as the clinical staff outside of myself do not have access to [email or web address] charting during the clinic day operations. As part of providing quality comprehensive care the current medications, vitals, and PMH were reviewed in the paper chart. Assessment and Plan Assessment and Plan (1) Lumbar stenosis with neurogenic claudication: Assessment and Plan: The patient has had over 3 months of moderate to severe low back and RLE pain with functional impairment and inadequate response to conservative care including NSAIDS (unless there are contraindication such as concurrent blood thinners), multiple oral or topical pain medications, and home exercise program/physical therapy.? Patient has completed >6 weeks of guided home exercise program and/or formal physical therapy program without relief of their symptoms.? The Oswestry Disability Index was completed, and the patient scored a 30%.? The patient noted the following:?? moderate to severe pain impacting ADLs, sitting, standing, walking, sleeping, social life, travel (2) Lumbar spondylosis: (3) Myofascial pain: (4) Scoliosis: (5) Rheumatoid arthritis: (6) Low back pain: Plan continue gabapentin 200mg BID, could not tolerate higher dosing pending referral to neurology for consideration of thoracic/lumbar botox, previously found moderate benefit with Dr Hood and Dr Escobar but we are no longer able to offer that continue baclofen 5-10mg HS PRN pain/spasms continue prn nabumetone f/u 3 months, sooner if needed
== END 2024-11-06 08:34 | disposition home or self-care (01) ==
LOC: PM 08:33
PROVIDERS: PCP Internal Medicine; Visit Provider Nurse Practitioner
DX: M48.062 Spinal stenosis, lumbar region with neurogenic claudication (principal); M47.816 Spondylosis without myelopathy or radiculopathy, lumbar region; M79.18 Myalgia, other site; M41.86 Other forms of scoliosis, lumbar region; M06.9 Rheumatoid arthritis, unspecified; M54.50 Low back pain, unspecified
CPT/HCPCS: G0463

== ENCOUNTER 2025-01-13 08:51 | Outpatient (RCR) | payer MEDICARE, SELFPAY ==
[2025-01-13 09:11] LABS: Anion Gap 12.6; Blood Urea Nitrogen 29.0 mg/dL (7.0-18.0); Calcium 10.1 mg/dL (8.5-10.1); Carbon Dioxide 30.8 mmol/L (21.0-32.0); Chloride 103 mmol/L (98-107); Estimated GFR (African America 50 (>=60 mL/min/1.73m^2); Estimated GFR (Non-African Ame 41 (>=60 mL/min/1.73m^2); Glucose 105 mg/dL (74-106); Potassium 4.4 mmol/L (3.5-5.1); Sodium 142 mmol/L (136-145)
[2025-01-13 09:25] VITALS: BP 161/73; PULSE 69; TEMP 36.3; O2SAT 98
[2025-01-13] MEDS: DENOSUMAB 60 MG/ML SYRINGE SUBQ (09:35)
== END 2025-01-27 08:22 | disposition home or self-care (01) ==
LOC: LAB 08:51
PROVIDERS: PCP Internal Medicine; Visit Provider Internal Medicine
DX: M81.0 Age-related osteoporosis without current pathological fracture (principal); Z51.81 Encounter for therapeutic drug level monitoring
CPT/HCPCS: 36415; 80048; 82306; 96372; J0897

== ENCOUNTER 2025-01-30 08:25 | Outpatient (OUT) | payer MEDICARE, SELFPAY ==
--- OUTSIDE RECORDS SUMMARY | 2023-11-17 05:30 | XMS_ITS ---
Author Organization [facility] Address [address] [place] [address] Care Team Providers Care Pharmacy Technology Instructor Name Role Phone HORTENCIA BHARDWAJ DO Primary Care Provider Wilfred Covarrubias Unavailable [phone] ELAINA TUCKER CNP Unavailable Unavailable Chang Salamanca Unavailable [phone] REASON FOR VISIT LUMBAR PAIN Encounters Encounter Location Date Provider Diagnosis [facility] [address] [place] [address] [address] [place] [address] 11/17/2023 Chang Salamanca Plan Of Treatment No Information Progress Notes * KIMBERLY LUJAN LDOB:1950 (74 yo F)Acc No.[id number]:11/17/2023 Patient:?KIMBERLY LUJAN :?Chang Bonner MD, PhDDOB:1950 ???Age:73 Y???Sex:FemaleDate:4Phone:[phone]:[address] [place], [place]-[id number]:HORTENCIA BHARDWAJ DO Subjective: * Chief Complaints: * 1 . LUMBAR PAIN. * Medical History: Objective: * Vitals: Assessment: Plan: * Treatment: Forms: * Images: * Electronic signature of Chang Salamanca MD, PHD on 01/30/2025 at 08:29 AM EST Sign off status: Pending * Provider: Luis Bonner MD, PhD Date: 0 11/17/2023 Generated for Printing/Faxing/eTransmitting on:?01/30/2025 08:29 AM EST
--- OUTSIDE RECORDS SUMMARY | 2023-12-01 05:30 | XMS_ITS ---
Author Organization [facility] Address [address] [place] [address] Care Team Providers Care Cafeteria Or Lunchroom Checker Name Role Phone HORTENCIA BHARDWAJ DO Primary Care Provider Wilfred Covarrubias Unavailable [phone] ELAINA TUCKER CNP Unavailable Unavailable Chang Salamanca Unavailable [phone] REASON FOR VISIT LUMBAR PAIN Encounters Encounter Location Date Provider Diagnosis [facility] [place] [address] [place] [address] [place] [address] 12/01/2023 Chang Salamanca Plan Of Treatment No Information Progress Notes * KIMBERLY LUJAN LDOB:1950 (74 yo F)Acc No.[id number]:12/01/2023 Patient:?KIMBERLY LUJAN :?Chang Bonner MD, PhDDOB:1950 ???Age:73 Y???Sex:FemaleDate:12/01/2023hone:[phone]:[address] [place] [phone]:HORTENCIA BHARDWAJ DO Subjective: * Chief Complaints: * 1 . LUMBAR PAIN. * Medical History: Objective: * Vitals: Assessment: Plan: * Treatment: Forms: * Images: * Electronic signature of Chang Salamanca MD, PHD on 01/30/2025 at 08:29 AM EST Sign off status: Pending * Provider: Luis Bonner MD, PhD Date: 1 Generated for Printing/Faxing/eTransmitting on:?01/30/2025 08:29 AM EST
--- OUTSIDE RECORDS SUMMARY | 2025-01-20 03:34 | XMS_ITS | Continuity of Care Document ---
Author Organization [facility] Address [address] [place] [address] Phone Care Team Providers Care Hand Screen Printer Name Role Phone Nakul Kar PERRY Primary Care Provider Kar Mota DO Attending Provider Cele Leigh Attending Provider Unavailabl e Care Teams Patient Care Team Team Status: Active Member Role/Relationship Status Dates Kar Mota DO Primary Care Provider Active Visit Care Team Team Status: Inactive Member Role/Relationship Status Dates Kar Mota DO Primary Care Provider Active Start: November 06, 2024 End: November 06Anuradha Dickens ProviderActiveStart: November 06, 2024 End: November 06, 2024 Visit Care Team Team Status: Inactive Member Role/Relationship Status Dates Kar Mota DO Primary Care Provider Active Start: November 18, 2024 End: November 18Anuradha Dickens ProviderActiveStart: November 18, 2024 End: November 18, 2024 Visit Care Team Team Status: Inactive Member Role/Relationship Status Dates Kar Mota DO Primary Care Provider Active Start: December 18, 2024 End: December 18Anuradha Dickens ProviderActiveStart: December 18, 2024 End: December 18, 2024 Patient Care Team Team Status: Active Member Role/Relationship Status Dates Kar Mota DO Primary Care Provider Active Start: January 13, 2025 Anuradha Larose ProviderActiveStart: January 13, 2025 Patient Care Team Team Status: Inactive Member Role/Relationship Status Dates Kar Mota DO Primary Care Provider Active Start: January 20, 2025 End: January 20Gerald Aguilar ProviderActiveStart: January 20, 2025 End: January 20, 2025 Chief Complaint and Reason for Visit Chief Complaint Admit Date Flu Shot November 06, 2024 9:17am B12 shot November 18, 2024 8:23am B12 Shot December 18, 2024 8 :43am B12 injection January 20, 2025 8:08am Allergies, Adverse Reactions, Alerts Allergen Type Severity Reaction Last Updated Verified Status Comments amoxicillin Allergy Unknown Difficulty Breathing September 16, 2024 8:18am Yes Active Onset Date: 02/08/2016 clavulanic acid Allergy Unknown Unknown Reaction September 16, 2024 8:18am Yes Active Onset Date: 02/08/2016 nitrofurantoin Allergy Unknown Difficulty Breathing September 16, 2024 8:18am Yes Active Sulfa (Sulfonamide Antibiotics)AllergyUnknownDifficulty BreathingJuly 2024 8:18amYesActive Social History Smoking Status Status Start Date End Date Date of Observa tion Ex-smoker (finding) August 27, 2021 7:35am Observation Status Observation Response Date of Response Legal Sex Female (finding) Sex Assigned At BirthFemaleSept1950 Family History Relationship Condition Age at Onset Recorded Date/T hoda mother Arthritis Unknown fatherHypertensionUnknownHeart problemUnknownDiabetes mellitusUnknownmother Family history of mental disorderUnknownAnxietyUnknown Problems Active Problems Problem Diagnosis/Recorded Date Onset Date Stat us 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 August 01, 2023 6:37am Unknown Active VALDEZ (generalized anxiety disorder) August 01, 2023 6:38 am Unknown Active Osteoporosis August 27, 2021 6:32am Unknown Active Pernicious anemia February 15, 2024 8:53am Unknown Active Chronic kidney disease August 03, 2023 9:23am Unknown Active GERD (gastroesophageal reflux disease) August 01, 2023 6:38am Unknown Active Carpal tunnel syndrome on both sides May 08, 2024 8:45am Unknown Active Hypertension September 16, 2024 8:45am Unknown Activ e Vitamin D deficiency September 16, 2024 8:46am Unknown Active Medications Medication Status Dose Units Route Directions Qty Days Refills S tart Date Stop Date End Date Reason(s) Instructions Adherence Nabumetone 750 mg tablet Discontinued 750 MG PO Twice daily 60 30 5 May 25, 2023 9:47pm November 13, 2023 12:52pmGabapentin 100 mg capsuleDiscontinued0.ROUTE.COMPLEX 3602June 2023 12:08pmJuly 2023 11:22amTAKE 2 CAPSULES BY MOUTH TWICE A DAYGabapentin 100 mg uhigegoNdaazttcrlen075XYQCQyzjz swqjw6580Zemx 2023 11:22amSeptember 2023 12:52pmNabumetone 750 mg ywfynzCewctpqzmtjw100GOND Twice relni351018Vnmbfjbdk 16th, 2024 12:51pmMarch 2024 8:26amGabapentin 100 mg flllgonJkinjcrlemmk740WKPBUjtvy pqfgw156901Hihxchujy 16th, 2024 12:52pm May 08, 2024 8:26amNabumetone 750 mg tsiahdKxjwtx887IFRQOfcns pgkaf62037 November 06, 2024 3:43pmUnknownGabapentin 100 mg sluehioLrunmd929RLCZHkszb veqfo265387Aokgfifqi 10th, 2025 3:44pmUnknownNabumetone 750 mg tablet Akjtgkwwvyfu678PNRKSmxyq dailyJun2021 11:00pmMarch 2023 9:47pm Calcium Carbonate-Vitamin D3 (Calcium + D) 600 mg-5 mcg (200 unit) TabletActive1 TABPOTwice dailyJun2021 11:00pmUnknownAcetaminophen (Acetaminophen Extra Strength) 500 mg AvjehyEcemcq824JNOJYy Directed as needed for painJun2021 11:00pmUnknownBaclofen 10 mg YrgyemJbuvcg27OYMQHpaju at bedtimeJun2021 11:00pmUnknownGabapentin 100 mg weqgtloLcmwgukwclfh615DTTYPruts dailyJun2021 11:00pmMay 2023 9:39amZoledronic Tiwe-Yuxmkzuh-Ckuul (Reclast) 5 mg/100 mL BciyarlvmTqzlqi9SOSRIqpfUpvd 2021 11:00pmUnknownVit C,W-Pn-Szuii-Lutein-Zeaxan (Preservision Areds-2) 250-90-40-1 mg CapsuleActive1 TABPOTwice dailyJune 2021 11:00pmUnknownOmeprazole 40 mg capsule,delayed release(DR/EC)Dwdlyotayran37WQCJNouvz tixsk489183Vtrj 2021 11:00pmMarch 2024 8:19amNabumetone 750 mg hrimtbFvldqgbjeoaq827BKLHKvtyp suovz48093 May 08, 2024 8:25amSeptember 2024 3:44pmGabapentin 100 mg capsule Cjtiwyeasqff789EFHCOhqtj scryk702310Doaxm 2024 8:25amSeptember 2024 3:44pmGabapentin 100 mg narcfggEavsdvfyxrzp740RETQZfvrs dailyMay 2023 11:00pmMay 2023 10:06amGabapentin 100 mg lcekpgpPvdljardvgxe816XNJCWezpy rorwx076843Tng 2023 10:03amJune 2023 12:08pm Immunizations Immunization Event Date Not Given Reason Dose Number Human Resources Benefits Assistant Lot Number Reason(s) Given Vaccine Information Statement (VIS) Detail Administration Location COVID-19 mRNA-1273 (Moderna) March 28, 2020 COVID-19 mRNA Comirnaty ([employer])March 28OVID-19 mRNA, Comirnaty ([employer])April 18OVID-19 mRNA Comirnatsirena ([employer])November 22, 2020 COVID-19 mRNA, Comirnaty ([employer])May 30, 2021Fluzone TIV High-Dose 65YR+ November 16, [id number] Health Carolinas Medical CenterFluzone TIV High-Dose 65YR+ November 06, [id number] [facility]entoninfluenza, unspecified formulationOctober 2014influenza, unspecified formulationOctober 2015 influenza, unspecified formulationOctober 2016influenza, unspecified formulationOctober 2017influenza, unspecified formulationSeptember 2018influenza, unspecified formulationSeptember 2019influenza, unspecified formulationOctober 2020influenza, unspecified formulationSeptember 2021influenza, unspecified formulationOctober 2022Live Attenuated Influenza Virus Vaccine quadSeptember [id number]. OfficePneumococcal Conjugate Vaccine, 13 valentMar 2015Pneumococcal Polysacc. Vaccine, 23 valent November 12, 2013Tetanus, Diphtheria adult, 5 Lf pres free absOctober 2012Tetanus, Diphtheria adult, 5 Lf pres free absOctober 2013 Relevant Diagnostic Tests and/or Laboratory Data Laboratory Results Test Collection Date/Time Result Date/Time Result Interpretation Reference Range Result Comment Performing Site Anion Gap January 13, 2025 8:58am January 13, 2025 8:58am 12.6 25-Hydroxy Vitamin D TotalNov2024 8:58amNove2024 8:58am 67.3 ng/mL<20 ng/mL Vit D kgowcpljr49-<30 ng/mL Vit D rrdjgjnzkytv48-502 ng/mL Vit D sufficient>100 ng/mL Potential ToxicityBUN/Creatinine RatioNove2024 8:58amNove2024 8:58am23.0Blood Urea NitrogenNov2024 8:58amNove2024 8:58am29.0 mg/dLAbove high normal7.0-18.0Calcium Level January 13, 2025 8:58amNovemb2024 8:58am10.1 mg/dL8.5-10.1Chloride LevelNov2024 8:58amNovember 2024 8:14lz303 mmol/K06-806Bjttvl Dioxide LevelCritical [facility]20[facility] 8:58amNove2024 8:58am30.8 mmol/L 21.0-32.0CreatinineNov2024 8:58amNoveer 2024 8:58am1.26 mg/dLAbove high normal0.55-1.02Estimated GFR ()January 13, 2025 8:58amNove2024 8:90mo88Fwair low normal>=60 mL/min/1.73m 2 Estimated GFR (Non- AmericanJanuary 13, 2025 8:58amNove2024 8:88cc15Sobxn low normal>=60 mL/min/1.73m 2Glucose LevelJanuary 13, 2025 8:58amNovember 2024 8:61nf537 mg/kR80-605Obklrxtnh LevelJanuary 13, 2025 8:58amNove2024 8:58am4.4 mmol/L3.5-5.1Sodium LevelJanuary 13, 2025 8:58amNove2024 8:57qt757 mmol/S499-102 Advance Directives Advance Directive Response Recorded Date/ Time Advance Directives No August 25 9:58am Insurance Providers Guarantor Courtney White Address [address] [id number] Info.Home Phone: Payer Group Member ID Coverage Type Subscriber Relationship to Subscriber Effective Date Expiration Date [employer] [facility] Id: [id number] L Fazio Id: [id number] [address] [place] [phone] Home Phone: Self Encounters Encounter Location(s) Arrival/Admit Date Discharge/Departure Date Discharge/Departure Disposition Provider(s) Departed Physician/ Provider Office Visit -[facility] November 06, 2024 9:17am November 06, 2024 9:27am Discharged to home care or self care (routine discharge) Kar Mota DO Departed Physician/ Provider Office Visit -[facility] November 18, 2024 8:23am November 18, 2024 8:58am Discharged to home care or self care (routine discharge) Kar Mota DO Departed Physician/ Provider Office Visit -[facility] December 18, 2024 8:43am December 18, 2024 8:52am Discharged to home care or self care (routine discharge) Kar Mota DO Non-patient / Non-visit -[facility] N ov2024 8:58am BRIDGETTE Laroseeparted Physician/Provider Office Visit-[facility] 2024 8:08amNovesuha 2024 8:32amDischarged to home care or self care (routine discharge)Cele Leigh
--- OUTSIDE RECORDS SUMMARY | 2025-01-30 08:29 | XMS_ITS | Patient Health Record ---
Author Organization [facility] Address [address] [place] [address] Care Team Providers Care Performance Improvement Coordinator Name Role Phone HORTENCIA BHARDWAJ DO Primary Care Provider Unavaila Wilfred Bullock Unavailable [phone] ELAINA TUCKER CNP Unavailable Unavailable Allergies Allergen (clinical drug ingredient) Drug/Non Drug Allergy documented on EMR Reaction Allergy Type Onset Date Status sulfa (uncoded)UnknownAllergyActivenitrofurantoin, macrocrystals / nitrofurantoin, monohydrateMacrobidUnknownDrug AllergyActiveamoxicillin amoxicillinUnknownDrug AllergyActive Reason For Referral No Information Medications Medication SIG (Take, Route, Frequency, Duration) Notes Start Date End Date Status nabumetone ActiveCalcium 600+DActivePreserVision AREDS 2ActiveReclastActivebaclofenActive gabapentinActive Social History Tobacco Use: Social History Observation Description Date Details (start date - stop date) Never Smoker NA - NA AUDIT-C (Standard) Question Answer Notes Did you have a drink containing alcohol in the p ast year? No Akkakr5KjaegutcgujggrMhntmzoaLyjbkyn Control (Standard) Question Answer Notes Tobacco use: Nonsmoker Problems Problem Type SNOMED Code ICD Code Onset Dates Problem Status W/U Status Risk Notes Problem Idiopathic scoliosis of lumbar spine (disorder) (593049295) Other idiopathic scoliosis, lumbar region (M41.26) ActiveconfirmedProblemSciatic nerve lesion (692996109)Piriformis syndrome of right side (G57.01)ActiveconfirmedProblemScoliosis (159478309)Scoliosis, unspecified scoliosis type, unspecified spinal region (M41.9)Activeconfirmed Plan Of Treatment Pending Test Test Name Order Date SCC- HIP W/ PELVIS, RIGHT [address] 11/20/19 24 Insurance Providers Payer Name Payer Address Payer Phone Subscriber Number Group Number Insured Name Patient Relationship to Insured Coverage Start Date Coverage End Date Medicare [employer] [address] [address] [place] [address] [id number] Chris LUJAN - patient is the insured Medical (General) History Medical History History ICD Code Drug Allergies
--- OUTSIDE RECORDS SUMMARY | 2025-01-30 08:30 | XMS_ITS | Clinical Summary ---
Author Organization [facility] Address [address] [place] [address] Care Team Providers Care Automatic Grinder Operator Name Role Phone Unavailable Primary Care Provider Unavailabl e Allergies Active AllergyReactionsCriticalityNoted DateCommentsAmoxicillinAnaphylaxisHigh 10/15/2021Nitrofurantoin Monohyd/M-NfnbcTdojnnikicbJubx93/19/2022ulfa (Sulfonamide Antibiotics)DcmzcpsrxzoPsed47/19/2022 Medications MedicationSigDispense QuantityRefillsLast FilledStart DateEnd DateStatus gabapentin (NEURONTIN) 100 mg capsule Take 200 mg by mouth twice daily.09/27/2021ctive nabumetone (RELAFEN) 750 mg tablet 10/13/2021ctive omeprazole (PRILOSEC) 40 mg capsule TAKE 1 CAPSULE BY MOUTH 2 TIMES DAILY FOR 12 WEEKS08/27/2021ctive zoledronic acid (RECLAST) 5 mg/100 mL pgbk PREMIX piggyback Inject 5 mg intravenously every year.Active vit A/vit C/vit E/zinc/copper (PRESERVISION AREDS ORAL) Take by mouth.Active baclofen (LIORESAL) 10 mg tablet Take 10 mg by mouth daily at bedtime.Active Social History Tobacco UseTypesPacks/DayYears UsedDateSmoking Tobacco: FormerCigarettes Smokeless Tobacco: Never Tobacco Cessation:Counseling Given: Not Answered Alcohol UseStandard Drinks/WeekCommentsNever0 (1 standard drink = 0.6 oz pure alcohol)PHQ-2AnswerDate RecordedPHQ-2 ocepm90304/04/2021rea Deprivation Index AnswerDate RecordedNational Score (1-100), lower number is lower risk70 03/24/2022State Score (1-10), lower number is lower riskNot on file03/24/2022 Data from: https://www.neighborhoodatlas.medicine.[facility].edu/. Last address used for [address]CommentsUnknownSex and Gender InformationValueDate RecordedSex Assigned at BirthNot on fileLegal SexFemale 01/29/2012 9:37 AM ESTGender IdentityNot on fileSexual OrientationNot on file Last Filed Vital Signs Vital SignReadingTime TakenCommentsBlood Qljlbgut853/7602/01/2022 10:22 AM ESTpt states worked up from driving uswuIdftw7107/06/2022 10:22 AM ESTTemperature-- Respiratory Xgnt161004/04/2021 10:22 AM ESTOxygen Zsnyekuram81%02/01/2022 10:22 AM ESTInhaled Oxygen Concentration--Iwtxwe62.9 kg (110 lb)02/01/2022 10:22 AM EST Opimao617 cm (5' 3 )02/01/2022 10:22 AM ESTBody Mass Index19.4902/01/2022 10:22 AM EST Plan of Treatment Health MaintenanceDue DateLast DoneCommentsAnxiety Akvdctotb95/16/1967Depression Tdthdnlpr93/16/1967Hepatitis C Ovbilfhhx51/16/1967DTaP,Tdap,Td Vaccine (1 - Tdap)11/13/1967Diabetes Mvxtpczcn32/16/1994Pneumococcal Vaccine: 50+ (1 of 1 - PCV)1998Shingrix Vaccine (1 of 2)1998Bone Density Screening 2013RSV Vaccine (1 - 1-dose 75+ series)4Advance Directive Doogeldrna94/01/2025Medicare Advantage Annual Wellness Visit02/28/2024ovid-19 Vaccine ( season)/, 05/30/2021, 11/22/2020, Additional history existsInfluenza Vaccine (#1)509/, 12/07/2017, 12/19/2016, Additional history exists Insurance * Guarantor: Courtney White LAccount TypeRelation to PatientDate of BirthPhone Billing AddressPersonal/PbeoroZxtc10/16/1951 [address] [id number]
--- OUTSIDE RECORDS SUMMARY | 2025-01-30 08:31 | XMS_ITS | CCD ---
Author Organization [facility] CliniSyak Care Team Providers Care Clothing Busheler Name Role Phone Unavailable Primary Care Provider [...] Unavailable JADA, DR MARTA Tyler Consulting Unavailable KIMBERLY ., DR DUC Smith Attending Unavailable KIMBERLY ., DR DUC Smith Admitting Unavailable MARCIAL, DR KATHRINE Hart Primary Care Unavailable MARCIAL, DR KATHRINE Hart Consulting Unavailable KIMBERLY ., DR DUC Smith Consulting Unavailable LashaeKar Unavailable Ball DO, Kar Primary Care Provider [phone] Ball DO, Kar Attending Provider Cassie VALE, Clifton Sena Attending Unavailable Cassie VALE, Clifton Sena Attending Unavailable Ball DO, Kar Primary Care Provider Ball DO, Kar Attending Provider [phone] Ball DO, Kar Primary Care Provider Ball DO, Kar Attending Provider Ball DO, Kar Primary Care Provider Ball DO, Kar Attending Provider Allergies Allergy ClassificationReported Allergen(s)Allergy TypeDate of OnsetReaction(s) Facility (17 sources)Amoxicillin; Translations: [AMOXICILLIN]Drug Mwpirti60-48-6271 AnaphylaxisPromedica Bay Park HospitalComment on above:Onset Date: 02/08/2016 (14 sources)NITROFURANTOIN, MACROCRYSTALS / Nitrofurantoin, Monohydrate; Translations: [NITROFURANTOIN MONOHYD/M-CRYST]Drug Tbejnkk80-70-6302Qujrkxduhzq [facility] (20 sources)Sulfonamides (Antibiotic); Translations: [SULFA (SULFONAMIDE ANTIBIOTICS)]Drug Ewxhirn14-48-9324DlydvjuhuixOlskeffsm [facility] (1 source)AmoxicillinDrug Fozhokf24-23-4769R[address] [facility] (2 sources)NitrofurantoinDrug Vmsygsc69-82-6080Qwf [facility] (2 sources)Sulfonamides (Antibiotic)Drug allergy (disorder)12-41-4201Buc [facility] (10 sources)Amoxicillin-Pot ClavulanateDrug eiaovra00-79-9253DkkfaebCghlo [employer] Other (13 sources)ClavulanateDrug Vzspdfi19-23-0135IjdbdjrSelect Medical Specialty Hospital - CantonComment on above:Onset Date: 02/08/2016 (13 sources)NitrofurantoinDrug Xtjdjlb05-35-8210Ylnnzphvdu [facility] Medications Current Medications MedicationDrug Class(es)DatesSig (Normalized)Sig (Original)acetaminophen 500 mg oral tablet (13 sources)Start: 85-86-9561iuhsgetbrfzx 250 mg oral tablet (2 sources)Macrolide AntimicrobialStart: 36-71-7334Ycscrwzhiyat 250 MG as directed Orally daily for 5 days Feb, Activebaclofen 10 mg oral tablet (20 sources)gamma-Aminobutyric Acid-ergic AgonistStart: 97-37-7522zaxy 1 tablet by mouth once daily at bedtimeComment on above:Take 10 mg by mouth daily at bedtime.calcium carbonate 1500 mg / cholecalciferol 200 unt oral tablet (13 sources)Vitamin DStart: 67-55-3278ehrc 1 tablet by mouth twice dailydocusate sodium 50 mg / sennosides, chcf 8.6 mg oral tablet (3 sources)Start: 98-91-5396neeb 8.6-50 mg by mouth once daily in the evening as neededSenokot S 8.6-50 MG 1 tablet as needed Orally q evening for 30 days Nov, ActiveVit C,I-Zz-Kfzum-Lutein-Zeaxan (Preservision Areds-2) 250-90-40-1 mg Capsule (13 sources)Start: 88-07-9951Mpaea: 08-41-8702Yvt C,R-Lc-Oqemw-Lutein-Zeaxan (Preservision Areds-2) 250-90-40-1 mg Capsule Active 1 TAB PO Twice daily August 27, 2021 12:00am Complies with drug therapyStart: 40-64-9914Epy C,E-Iy-Qdtpr-Lutein-Zeaxan (Preservision Areds-2) 250-90-40-1 mg Capsule Active 1 TAB PO Twice daily August 26, 2021 11:00pmStart: 95-22-3841Zno C,Y-Qx-Qxyci-Lutein-Zeaxan (Preservision Areds-2) 250-90-40-1 mg Capsule Active 1 TAB PO Twice daily August 27, 2021 12:03er705 ml zoledronic acid 0.05 mg/ml injection (16 sources)BisphosphonateStart: 46-40-4404nrod 5 mg intravenously once zoledronic acid (RECLAST) 5 mg/100 mL pgbk PREMIX piggyback Inject 5 mg intravenously every year. 0ActiveComment on above:Inject 5 mg intravenously every year. Completed/Discontinued Medications MedicationDrug Class(es)DatesSig (Normalized)Sig (Original)gabapentin 100 mg oral capsule (20 sources)Anti-epileptic AgentStart: 08-28-2023 End: 30-84-2641duqh 2 capsules by mouth twice dailyGabapentin 100 mg capsule Discontinued 200 MG PO Twice daily 120 30 5 May 08, 2024 9:25am November 06, 2024 4:44pmStart: 08-28-2023 End: 63-23-9627gofu 200 mg by mouth twice dailyGabapentin Active 200 MG PO Twice daily 360 90 November 13, 2023 1:52pmStart: 08-18-2023 End: 65-23-9375tkyi 2 capsules by mouth twice dailyGabapentin 100 mg capsule Discontinued 0 .ROUTE .COMPLEX 360 2 August 18, 2023 1:08pm August 28, 2023 12:22pm TAKE 2 CAPSULES BY MOUTH TWICE A DAYStart: 07-19-2023 End: 43-30-8152pncb 2 capsules by mouth twice dailyGabapentin 100 mg capsule Discontinued 200 MG PO Twice daily 120 30 5 July 19, 2023 11:03am August 18, 2023 1:08pmStart: 07-19-2023 End: 73-68-3519akgc 200 mg by mouth twice dailyGabapentin Discontinued 200 MG PO Twice daily 120 30 July 19, 2023 11:03am August 18, 2023 1:08pmStart: 86-14-4731xjdj 2 capsules by mouth every twelve hoursGabapentin 100 MG 2 capsules Orally bid for 30 days Aug, ActiveStart: 08-27-2021 End: 31-57-7430pwim 1 capsule by mouth twice dailyGabapentin 100 mg capsule Discontinued 100 MG PO Twice daily August 27, 2021 12:00am July 19, 2023 10:39am Comment on above:Take 200 mg by mouth twice daily.nabumetone 750 mg oral tablet (20 sources)Nonsteroidal Anti-inflammatory DrugStart: 08-27-2021 End: 39-49-5264bzvy 1 tablet by mouth twice dailyNabumetone 750 mg tablet Discontinued 750 MG PO Twice daily 60 30 5 May 08, 2024 9:25am November 06, 2024 4:44pmomeprazole 40 mg delayed release oral capsule (16 sources)Proton Pump InhibitorStart: 08-27-2021 End: 52-83-4503hdgp 1 capsule by mouth twice dailyOmeprazole 40 mg capsule,delayed release(DR/EC) Discontinued 40 MG PO Twice daily 168 84 0 August 27, 2021 12:00am May 08, 2024 9:19amComment on above:TAKE 1 CAPSULE BY MOUTH 2 TIMES DAILY FOR 12 WEEKSvit A/vit C/vit E/zinc/copper (PRESERVISION AREDS ORAL) (3 sources)vit A/vit C/vit E/zinc/copper (PRESERVISION AREDS ORAL) Take by mouth. 0 ActiveComment on above:Take by mouth. Problems Active Problems Problem ClassificationProblemDateDocumented DateEpisodic/ChronicAbdominal hernia (7 sources)Diaphragmatic hernia; Translations: [Diaphragmatic hernia without obstruction or gangrene]EpisodicAbdominal pain (14 sources)Left lower quadrant pain; Translations: [Left lower quadrant pain] Onset: 49-86-0280EkjovutzKujsi bronchitis (1 source)Acute bronchitis due to other specified organismsEpisodicAnxiety disorders (20 sources)Generalized anxiety disorder; Translations: [Generalized anxiety disorder]41-75-8699VrsgwqwMfnybli kidney disease (20 sources)Chronic kidney disease; Translations: [Chronic kidney disease, unspecified]33-44-9256RylloruDycgmlmyum associated with dizziness or vertigo (14 sources)Benign paroxysmal positional vertigo; Translations: [Benign paroxysmal vertigo, unspecified ear]Onset: 12-41-0091FeujlznaYdwzenmmkd and other anemia (12 sources)Anemia; Translations: [Anemia, unspecified]10-84-1001Gabmapcu Deficiency and other anemia (15 sources)Pernicious anemia; Translations: [Vitamin B12 deficiency anemia due to intrinsic factor deficiency]02-04-9239VqdqjjmyAkjeeuknvj and other anemia (4 sources)Vitamin B12 deficiency anemia due to intrinsic factor deficiency; Translations: [Pernicious anemia]70-39-9002GcgeqileAsahivnrnz disorders (20 sources)Gastroesophageal reflux disease; Translations: [Gastro-esophageal reflux disease without esophagitis]90-37-0038EstrqrgAilyzwpju hypertension (9 sources)Hypertensive disorder; Translations: [Essential (primary) hypertension]79-24-9571EohyspmQexqndsuazqvpx ulcer (except hemorrhage) (7 sources)Gastric ulcer; Translations: [Gastric ulcer, unspecified as acute or chronic, without hemorrhage orperforation]Onset: 25-08-3407LbadxogGxgpeney; including migraine (1 source)Headache; including migraine; Translations: [Headache, unspecified] Onset: 08-65-9695Wwpbuysbarxzp and screening for infectious disease (7 sources)Vaccination given; Translations: [Encounter for immunization]Episodic Malaise and fatigue (8 sources)Other fatigue; Translations: [Fatigue]Onset: 91-16-4658Buzgikmw Menopausal disorders (7 sources)Menopause present; Translations: [Menopausal and female climacteric states]ChronicNonmalignant breast conditions (7 sources)Fibrocystic disease of breast; Translations: [Diffuse cystic mastopathy of unspecified breast]ChronicNutritional deficiencies (20 sources)Vitamin D deficiency, unspecified; Translations: [Vitamin D deficiency]Onset: 87-40-3158QwodnbnSnejvyywglqteo (7 sources)Osteoarthritis; Translations: [Polyosteoarthritis, unspecified] ChronicOsteoporosis (20 sources)Age-related osteoporosis without current pathological fracture; Translations: [Primary osteoporosis]Onset: 53-15-4602IamjhppKumbb acquired deformities (1 source)Scoliosis deformity of spine; Translations: [Scoliosis, unspecified] ChronicOther acquired deformities (6 sources)Scoliosis, unspecified; Translations: [Scoliosis of thoracolumbar spine, unspecified scoliosis type]Onset: 02-86-5916TdppcttPvaxq acquired deformities (1 source)Other forms of scoliosis, lumbar region; Translations: [OTHER FORMS SCOLIOSIS LUMBAR REGION]Onset: 02-44-1763RdofdhyHvlhq acquired deformities (20 sources)Acquired scoliosis; Translations: [Other secondary scoliosis, thoracic region]ChronicOther acquired deformities (3 sources)Other secondary scoliosis, lumbar regionChronicOther acquired deformities (3 sources)Other secondary scoliosis, thoracic regionChronicOther acquired deformities (3 sources)Acquired kyphoscoliosis; Translations: [Scoliosis, unspecified] ChronicOther acquired deformities (2 sources)Thoracogenic scoliosis, thoracolumbar region; Translations: [Thoracogenic scoliosis of thoracolumbar region]ChronicOther acquired deformities (20 sources)Other secondary scoliosis, site unspecified; 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]90-82-2898MyjjnkqUlfch aftercare (2 sources)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 ad terminal makeup 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; Translations: [OTH ENGINEERING DRAWINGS CHECKER CURRENT DRUG THERAPY]Onset: 42-99-5379CmutvypoPpelh aftercare (6 sources)Long-term current use of drug therapy; Translations: [Other mcc (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]EpisodicOther bone disease and musculoskeletal deformities (7 sources)Bone density finding; Translations: [Other specified disorders of bone density and structure, unspecified site]EpisodicOther circulatory disease (8 sources)Elevated blood-pressure reading without diagnosis of hypertension; Translations: [Elevated blood-pressure reading, without diagnosis of hypertension]19-73-7856PnpsmejdKgyjl circulatory disease (4 sources)Elevated blood-pressure reading, without diagnosis of hypertension; Translations: [Elevated blood pressure reading without diagnosis of hypertension]26-75-1954SjgfqdngJhefz connective tissue disease (4 sources)Muscle wasting and atrophy, not elsewhere classified, unspecified site; Translations: [MUSCLE WASTING ATROPHY NEC UNS SITE]Onset: 05-02-2022 EpisodicOther gastrointestinal disorders (9 sources)Irritable bowel syndrome characterized by constipation; Translations: [Irritable bowel syndrome with constipation]ChronicOther gastrointestinal disorders (4 sources)Irritable bowel syndrome with constipation; Translations: [Irritable bowel syndrome with constipation]ChronicOther gastrointestinal disorders (6 sources)Flatulence, eructation and gas pain; Translations: [Abdominal distension (gaseous)]EpisodicOther gastrointestinal disorders (1 source)Abdominal distension (gaseous); Translations: [Abdominal distension (gaseous)]EpisodicOther gastrointestinal disorders (1 source)Diarrhea, unspecifiedEpisodicOther hereditary and degenerative nervous system conditions (1 source)Genetic torsion dystonia; 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] Onset: 44-02-8997UzthbugFpzvh hereditary and degenerative nervous system conditions (1 source)Dystonia, unspecified; Translations: [DYSTONIA UNSPECIFIED]Onset: 43-20-6708SvxxucaWphyf injuries and conditions due to external causes (7 sources)History of fall; Translations: [History of falling]EpisodicOther nervous system disorders (3 sources)Chronic pain; Translations: [Other chronic pain]ChronicOther nervous system disorders (3 sources)Carpal tunnel syndrome; Translations: [Carpal tunnel syndrome, bilateral upper limbs]40-96-9627BzheuamVvqqm nervous system disorders (3 sources)Carpal tunnel syndrome, bilateral upper limbs; Translations: [Carpal tunnel syndrome]42-70-4829NfxzhwxPmrra nervous system disorders (9 sources)Bilateral carpal tunnel syndrome; Translations: [Carpal tunnel syndrome, bilateral upper limbs]72-86-1356BlfjgdgHxhyc nervous system disorders (7 sources)Paresthesia; Translations: [Paresthesia of skin]EpisodicOther nutritional; endocrine; and metabolic disorders (6 sources)Abnormal weight loss; Translations: [Abnormal weight loss]Episodic Other nutritional; endocrine; and metabolic disorders (1 source)Abnormal weight loss; Translations: [Abnormal weight loss]Episodic Other screening for suspected conditions (not mental disorders or infectious disease) (19 sources)Patient encounter status; Translations: [Encounter for screening for osteoporosis]Onset: 16-90-5434QcmjjokuBmzvo upper respiratory disease (7 sources)Vasomotor rhinitis; Translations: [Vasomotor rhinitis]ChronicOther upper respiratory infections (7 sources)Chronic sinusitis; Translations: [Chronic sinusitis, unspecified] ChronicResidual codes; unclassified (9 sources)Early satiety; Translations: [Early satiety]EpisodicResidual codes; unclassified (7 sources)Postmenopausal state; Translations: [Asymptomatic menopausal state] EpisodicResidual codes; unclassified (1 source)Early satiety; Translations: [Early satiety]EpisodicSpondylosis; intervertebral disc disorders; other back problems (20 sources)Other cervical disc degeneration, unspecified cervical region; Translations: [Lumbosacral spondylosis without myelopathy]Onset: 01-24-2022 ChronicSpondylosis; intervertebral disc disorders; other back problems (18 sources)Sciatica; Translations: [Lumbago with sciatica, left side] Resolved: 55-48-9031LdsklmxrLoxnieziu-related disorders (10 sources)Tobacco user; Translations: [Nicotine dependence, cigarettes, in remission]ChronicUnclassified (3 sources)LOW BACK PAIN, UNSPECIFIED; Translations: [LOW BACK PAIN, UNSPECIFIED]Onset: 94-94-5718Tutmevqryenh (1 source)Unspecified tinnitus; Translations: [Unspecified tinnitus]Onset: 05-01-2017 Past or Other Problems Problem ClassificationProblemDateDocumented DateEpisodic/ChronicGenitourinary symptoms and ill-defined conditions (14 sources)Finding of frequency of urination; Translations: [Frequency of micturition]Onset: 89-27-1048EqtfbnimFcevliuz; including migraine (6 sources)Headache; Translations: [Headache, unspecified]Onset: 04-03-2015 EpisodicNoninfectious gastroenteritis (7 sources)Non-infective enteritis and colitis; Translations: [Noninfective gastroenteritis and colitis, unspecified]Onset: 83-02-3742NjsvcyfbLdlptissubr chest pain (7 sources)Chest pain; Translations: [Chest pain, unspecified]Onset: 08-14-2013 EpisodicOther bone disease and musculoskeletal deformities (1 source)Other specified disorders of bone density and structure, other site; Translations: [OTH D/O BONE DEN STRUCT OTH SITE]Onset: 56-66-3416QiiquhczWdvny bone disease and musculoskeletal deformities (1 source)Other specified disorders of bone density and structure, left thigh; Translations: [OTH D/O BONE DEN STRUCT LT THIGH]Onset: 57-21-3457HvjpwpevTdqgl bone disease and musculoskeletal deformities (1 source)Other specified disorders of bone density and structure, right thigh; Translations: [OTH D/O BONE DEN STRUCT RT THIGH]Onset: 30-89-5387IjajdqgnQlutv connective tissue disease (5 sources)Sarcopenia; Translations: [SARCOPENIA]Onset: 67-72-5093OifkbygbZmcbc connective tissue disease (1 source)Pain in left leg; Translations: [PAIN IN LEFT LEG]Onset: 12-26-2021 EpisodicOther connective tissue disease (1 source)Disorder of muscle, unspecified; Translations: [DISORDER OF MUSCLE UNSPECIFIED]Onset: 77-11-0926SwznarxuVheze connective tissue disease (4 sources)Other muscle spasm; Translations: [OTHER MUSCLE SPASM]Onset: 24-86-3091DsfbvfvvJpowc ear and sense organ disorders (6 sources)Tinnitus; Translations: [Unspecified tinnitus]Onset: 05-01-2017 EpisodicOther upper respiratory infections (20 sources)Acute maxillary sinusitis; Translations: [Acute recurrent maxillary sinusitis]Onset: 71-47-3870TluxsvucPlinzzcd codes; unclassified (1 source)Family history of malignant neoplasm of breast; Translations: [FAMILY HX MALIG NEOPLASM OF BREAST]Onset: 51-91-9344UwhnsgxlHhzphswt codes; unclassified (1 source)Asymptomatic menopausal state; Translations: [ASYMPTOMATIC MENOPAUSAL STATE]Onset: 28-78-0427XbskskjcZxpmtej and strains (7 sources)Strain of muscle and tendon of back wall of thorax, subsequent encounter; Translations: [Strain of muscle and tendon of back wall of thorax, subsequent encounter]Onset: 54-39-2533GmlfvlynRsnhgxafjgqc (1 source)LOW BACK PAIN, UNSPECIFIED; Translations: [LOW BACK PAIN, UNSPECIFIED] Onset: 54-85-4701Rdzuukevpayv (1 source)Acute cough R05.1 Results Test NameValueInterpretationReference RangeFacilityBasophils Auto (Bld) [#/Vol] Ordered By: Kar Mota on 71-66-2537Arnuiuhej (Bld) [#/Vol]0.0 10 3/uL0.0-0.1 [facility] HospitalBasophils/100 WBC Auto (Bld)Ordered By: Kar Mota on 14-63-9223Hjgeqdova/100 WBC (Bld)0.5 %0.2-2.0[facility] HospitalEosinophils/100 WBC Auto (Bld)Ordered By: Kar Mota on 56-82-4667Opekparhcpi/100 WBC (Bld)1.5 %0.9-7.0[facility] Erythrocyte distribution width Auto (RBC) [Ratio]Ordered By: Kar Mota on 26-96-8125Luztkipyoeb distribution width (RBC) [Ratio]13.9 %11.0-15.0[facility] HospitalGlobulin Calc (S) [Mass/Vol]Ordered By: Kar Mota on 06-93-9498Ajuwvbgn (S) [Mass/Vol]4.0 g/dLClinton Memorial Hospital Glomerular filtration rate (GFR) estimation in non- AmericanOrdered By: Kar Mota on 88-65-4354YDX/1.73 sq M.predicted among non-blacks MDRD (S/P/Bld) [Vol rate/Area]45 mL/min/{1.73_m2}Low>=60 mL/min/1.73m 2FCleveland Clinic Mentor HospitalHematocrit Auto (Bld) [Volume fraction]Ordered By: Kar Mota on 75-62-7943Lgaovxpieg (Bld) [Volume fraction]35.0 %Low36.0-48.0 [facility] HospitalHemoglobin [Mass/volume] in BloodOrdered By: Kar Mota on 30-28-1003Ljkguyewop (Bld) [Mass/Vol]11.8 g/dLLow12.0-16.0 [facility] HospitalLaboratory - Chemistry and Chemistry - challengeOrdered By: Kar Mota on 22-22-6716Pvabxnf [Mass/Vol]3.7 g/dL 3.4-5.0[facility] HospitalALP [Catalytic activity/Vol]68 U/L46-116 [facility] HospitalALT [Catalytic activity/Vol]21 U/L14-59 [facility] HospitalAST [Catalytic activity/Vol]20 U/L15-37 [facility] HospitalBilirubin [Mass/Vol]0.6 mg/dL0.2-1.0[facility] HospitalCalcium [Mass/Vol]9.6 mg/dL8.5-10.1FCleveland Clinic Mentor HospitalChloride [Moles/Vol]105 mmol/J81-341IfhpaxmjpClinton Memorial HospitalCO2 [Moles/Vol]27.7 mmol/L21.0-32.0[facility] Creatinine [Mass/Vol]1.18 mg/dLHigh0.55-1.02[facility] GFR/1.73 sq M.predicted MDRD (S/P/Bld) [Vol rate/Area]54 mL/min/{1.73_m2}Low>=60 mL/min/1.73m 2FCleveland Clinic Mentor HospitalGlucose [Mass/Vol]104 mg/sQ34-300 [facility] HospitalPotassium [Moles/Vol]3.9 mmol/L3.5-5.1FCleveland Clinic Mentor HospitalProtein [Mass/Vol]7.7 g/dL6.4-8.2FC[facility] Clinic [facility]ron Generalodium [Moles/Vol]142 mmol/Y001-723QcydkhoolClinton Memorial HospitalUrea nitrogen [Mass/Vol]22.0 mg/dLHigh7.0-18.0[facility] HospitalUrea nitrogen/Creatinine [Mass ratio]18.6 mg/mgClinton Memorial HospitalLaboratory - Hematology and Cell countsOrdered By: Kar Mota on 45-07-5459Dvfyshdn granulocytes/100 WBC (Bld)0.3 %0.0-0.5FCleveland Clinic Mentor HospitalLeukocytes [#/volume] corrected for nucleated erythrocytes in Blood by Automated counOrdered By: Kar Mota on 13-55-2546VQD corrected for nucl RBC Auto (Bld) [#/Vol]6.6 10 3/uL4.0-11.0[facility] Lymphocytes Auto (Bld) [#/Vol]Ordered By: Kar Mota on 49-33-1219Swsstpimvuq (Bld) [#/Vol]1.9 10 3/uL1.2-3.8[facility] HospitalLymphocytes/100 WBC Auto (Bld)Ordered By: Kar Mota on 76-95-1037Yvxquyzejvw/100 WBC (Bld) 28.5 %20.5-60.0[facility] Auto (RBC) [Entitic mass] Ordered By: Kar Mota on 30-54-7184ASF (RBC) [Entitic mass]31.6 pg26.7-34.0 [facility] HospitalMCHC Auto (RBC) [Mass/Vol]Ordered By: Kar Mota on 28-23-1176PTWV (RBC) [Mass/Vol]33.7 g/dL29.9-35.2FCleveland Clinic Mentor HospitalMCV Auto (RBC) [Entitic vol]Ordered By: Kar Mota on 28-78-8699XSY (RBC) [Entitic vol]93.6 fL81.0-99.0[facility] HospitalMicroalbumin [Mass/volume] in UrineOrdered By: Kar Mota on 10-15-2024 Albumin DL <= 20 mg/L (U) [Mass/Vol]3.4 mg/dL<=30.0[facility] HospitalMonocytes Auto (Bld) [#/Vol]Ordered By: Kar Mota on 10-15-2024 Monocytes (Bld) [#/Vol]0.5 10 3/uL0.3-0.8[facility] Monocytes/100 WBC Auto (Bld)Ordered By: Kar Mota on 17-86-2605Rnoiuguyu/100 WBC (Bld)8.2 %1.7-12.0[facility] HospitalNeutrophils Auto (Bld) [#/Vol]Ordered By: Kar Mota on 06-29-8735Vgoluyoymih (Bld) [#/Vol]4.0 10 3/uL1.4-6.5FCleveland Clinic Mentor HospitalNeutrophils/100 WBC Auto (Bld) Ordered By: Kar Mota on 59-44-0995Uxnkamgywon/100 WBC (Bld)61.0 %43.0-75.0 [facility] HospitalNo Panel InformationOrdered By: Kar Mota on 212406-Ppbzaky Vitamin D Total67.2 ng/mLClinton Memorial HospitalComment on above:<20 ng/mL Vit D ajmighlhy04-<30 ng/mL Vit D nbkxuadqrdwj87-754 ng/mL Vit D sufficient>100 ng/mL Potential Toxicity Eosinophils # (Auto)0.1 10 3/uL0.0-0.7FCleveland Clinic Mentor HospitalImmature Granulocyte # (Auto)0.02 10 3/uL0.00-0.03[facility] HospitalUrine Random Wguenwzxxm788.08 mg/dL20.00-300.00[facility] Platelet mean volume Auto (Bld) [Entitic vol]Ordered By: Kar Mota on 74-88-5585Ewnlwvpm mean volume (Bld) [Entitic vol]8.9 fLLow9.5-13.5FCleveland Clinic Mentor HospitalPlatelets Auto (Bld) [#/Vol]Ordered By: Kar Mota on 49-79-9649Oicwqtiui (Bld) [#/Vol]310 10 3/xN201-960UalskknttClinton Memorial HospitalRBC Auto (Bld) [#/Vol]Ordered By: Kar Mota on 05-25-7544BBJ (Bld) [#/Vol]3.74 10 6/uLLow4.20-5.40[facility] Centererum or plasma albumin/globulin mass ratioOrdered By: Kar Mota on 10-15-2024 Albumin/Globulin [Mass ratio]0.9 {ratio}[facility] Centererum or plasma anion gap determinationOrdered By: Kar Mota on 81-89-9017Vbxow gap [Moles/Vol]13.2 mmol/LFCleveland Clinic Mentor HospitalUrine microalbumin/creatinine mass ratioOrdered By: Kar Mota on 10-15-2024 Albumin/Creatinine DL <= 20 mg/L (U) [Mass ratio]19.9 mg/g0.0-29.9[facility] HospitalComment on above:NO MICROALBUMINURIA 0-29 MG/GCLINICAL MICROALBUMINURIA 30-300 MG/GMACROALBUMINURIA >300 MG/GBasophils Auto (Bld) [#/Vol]on 66-59-7528Szzvucuep (Bld) [#/Vol]Automated basophil count0.0-0.1 [facility] HospitalBasophils/100 WBC Auto (Bld)on 05-03-2024 Basophils/100 WBC (Bld)Automated basophil %0.2-2.0[facility] HospitalEosinophils/100 WBC Auto (Bld)on 80-83-5367Aqidcefldgb/100 WBC (Bld) Automated eosinophil %0.9-7.0[facility] HospitalErythrocyte distribution width Auto (RBC) [Ratio]on 32-82-8952Rffgwqieauj distribution width (RBC) [Ratio]Erythrocyte distribution width [Ratio] by Automated count11.0-15.0 [facility] HospitalHematocrit Auto (Bld) [Volume fraction]on 28-75-2590Zcdcfdasvs (Bld) [Volume fraction]Hematocrit [Volume Fraction] of Blood by Automated hqagkGrt66.0-48.0[facility] HospitalHemoglobin [Mass/volume] in Bloodon 07-32-1077Snpfumaaug (Bld) [Mass/Vol]Hemoglobin [Mass/volume] in IkmtjUot72.0-16.0[facility] HospitalLaboratory - Hematology and Cell countson 81-62-6035Qimgjsyj granulocytes/100 WBC (Bld)0.4 % 0.0-0.5FCleveland Clinic Mentor HospitalLeukocytes [#/volume] corrected for nucleated erythrocytes in Blood by Automated counon 54-97-0084GLK corrected for nucl RBC Auto (Bld) [#/Vol]Leukocytes [#/volume] corrected for nucleated erythrocytes in Blood by Automated coun4.0-11.0[facility] Lymphocytes Auto (Bld) [#/Vol]on 57-04-0593Wfvdntftaup (Bld) [#/Vol]Lymphocytes [#/volume] in Blood by Automated count1.2-3.8[facility] Lymphocytes/100 WBC Auto (Bld)on 23-93-1873Grjsxxugjae/100 WBC (Bld) Lymphocytes/100 leukocytes in Blood by Automated count20.5-60.0[facility] HospitalMCH Auto (RBC) [Entitic mass]on 94-46-9833UNS (RBC) [Entitic mass]MCH [Entitic mass] by Automated count26.7-34.0[facility] HospitalMCHC Auto (RBC) [Mass/Vol]on 57-81-1821HNIN (RBC) [Mass/Vol]MCHC [Mass/volume] by Automated count29.9-35.2FCleveland Clinic Mentor HospitalMCV Auto (RBC) [Entitic vol]on 53-20-7771GIY (RBC) [Entitic vol]MCV [Entitic volume] by Automated count81.0-99.0[facility] HospitalMonocytes Auto (Bld) [#/Vol]on 22-72-1399Gkczehdgz (Bld) [#/Vol]Automated blood monocyte count0.3-0.8 [facility] HospitalMonocytes/100 WBC Auto (Bld)on 05-03-2024 Monocytes/100 WBC (Bld)Automated monocyte %1.7-12.0[facility] HospitalNeutrophils Auto (Bld) [#/Vol]on 87-52-6485Tsqfygsvvjq (Bld) [#/Vol] Neutrophils [#/volume] in Blood by Automated count1.4-6.5FCleveland Clinic Mentor HospitalNeutrophils/100 WBC Auto (Bld)on 91-07-1402Eartgpxryrz/100 WBC (Bld)Automated neutrophil %43.0-75.0[facility] HospitalNo Panel Informationon 01-41-1208Wirwhhzbvkw # (Auto)0.2 10 3/uL0.0-0.7FCleveland Clinic Mentor HospitalImmature Granulocyte # (Auto)0.02 10 3/uL0.00-0.03[facility] HospitalPlatelet mean volume Auto (Bld) [Entitic vol]on 42-03-7076Vqlrfyjo mean volume (Bld) [Entitic vol]Platelet mean volume [Entitic volume] in Blood by Automated countLow9.5-13.5FC[facility] Hospital Platelets Auto (Bld) [#/Vol]on 35-80-3835Btlyfrngc (Bld) [#/Vol]Platelets [#/volume] in Blood by Automated lupkc105-293OgnpchcjdClinton Memorial Hospital RBC Auto (Bld) [#/Vol]on 91-08-3225HTH (Bld) [#/Vol]Erythrocytes [#/volume] in Blood by Automated countLow4.20-5.40[facility] HospitalBasophils Auto (Bld) [#/Vol]on 62-20-9332Isdlfhhpw (Bld) [#/Vol]Automated basophil count 0.0-0.1FCleveland Clinic Mentor HospitalBasophils/100 WBC Auto (Bld)on 96-14-4507Kevxgciqo/100 WBC (Bld)Automated basophil %0.2-2.0[facility] HospitalEosinophils/100 WBC Auto (Bld)on 04-33-9925Nztgbxaxvuq/100 WBC (Bld)Automated eosinophil %0.9-7.0[facility] HospitalErythrocyte distribution width Auto (RBC) [Ratio]on 24-73-1789Yzmeaaxyrhu distribution width (RBC) [Ratio]Erythrocyte distribution width [Ratio] by Automated count11.0-15.0 [facility] HospitalEstimated glomerular filtration rate (GFR) non- Americanon 26-63-6683ASX/1.73 sq M.predicted among non-blacks MDRD (S/P/Bld) [Vol rate/Area]Estimated glomerular filtration rate (GFR) non- AmericanLow>=60 mL/min/1.73m 2FCleveland Clinic Mentor HospitalHematocrit Auto (Bld) [Volume fraction]on 30-40-5615Qwkkyrwqpw (Bld) [Volume fraction]Hematocrit [Volume Fraction] of Blood by Automated pxgvbAfn00.0-48.0[facility] HospitalHemoglobin [Mass/volume] in Bloodon 90-99-7041Fndxyggjgf (Bld) [Mass/Vol]Hemoglobin [Mass/volume] in LqduiFyw73.0-16.0[facility] HospitalIron binding capacity [Mass/volume] in Serum or Plasmaon 08-78-2329Egmz binding capacity [Mass/Vol]Iron binding capacity [Mass/volume] in Serum or Gwngec818.0-450.0[facility] HospitalIron saturation [Mass Fraction] in Serum or Plasmaon 45-05-7131Emoa saturation [Mass fraction] Iron saturation [Mass Fraction] in Serum or PlasmaClinton Memorial HospitalLaboratory - Chemistry and Chemistry - challengeon 10-73-2223Yaqpnsi [Mass/Vol]9.8 mg/dL8.5-10.1FCleveland Clinic Mentor HospitalChloride [Moles/Vol] 107 mmol/W41-170FbmsvygpmClinton Memorial HospitalCO2 [Moles/Vol]31.1 mmol/L 21.0-32.0[facility] HospitalCobalamin (Vitamin B12) [Mass/Vol]250 pg/bJ483-7541KvndujpgjClinton Memorial HospitalComment on above:Performed at: - [facility] [address] [id number] Director: Primo Richard PhD, Phone: [phone] [Mass/Vol]1.25 mg/dLHigh0.55-1.02 [facility] HospitalFerritin [Mass/Vol]28.0 ng/mL8.0-252.0[facility] HospitalGFR/1.73 sq M.predicted MDRD (S/P/Bld) [Vol rate/Area]51 mL/min/{1.73_m2}Low>=60 mL/min/1.73m 2FC[facility] Clinic Mentor HospitalGlucose [Mass/Vol]87 mg/aZ30-955LvanmjuvcClinton Memorial HospitalIron [Mass/Vol]122.0 ug/dL50.0-170.0[facility] HospitalPotassium [Moles/Vol]4.1 mmol/L 3.5-5.1FC[facility] Akron Generalodium [Moles/Vol]147 mmol/QYmpy607-757 [facility] HospitalUrea nitrogen [Mass/Vol]20.0 mg/dLHigh7.0-18.0 [facility] HospitalUrea nitrogen/Creatinine [Mass ratio]16.0 mg/mg [facility] HospitalLaboratory - Hematology and Cell countson 45-46-1558Gpnkvdnq granulocytes/100 WBC (Bld)0.2 %0.0-0.5FCleveland Clinic Mentor HospitalLeukocytes [#/volume] corrected for nucleated erythrocytes in Blood by Automated counon 34-51-2215FHC corrected for nucl RBC Auto (Bld) [#/Vol]Leukocytes [#/volume] corrected for nucleated erythrocytes in Blood by Automated coun4.0-11.0[facility] HospitalLymphocytes Auto (Bld) [#/Vol]on 93-63-2960Hilfzuvsnnb (Bld) [#/Vol]Lymphocytes [#/volume] in Blood by Automated count1.2-3.8[facility] HospitalLymphocytes/100 WBC Auto (Bld)on 49-93-6235Uelfyecmdfr/100 WBC (Bld)Lymphocytes/100 leukocytes in Blood by Automated count20.5-60.0[facility] HospitalH Auto (RBC) [Entitic mass]on 52-93-4609SYF (RBC) [Entitic mass]MCH [Entitic mass] by Automated count26.7-34.0[facility] HospitalHC Auto (RBC) [Mass/Vol]on 96-23-6134DDJA (RBC) [Mass/Vol]MCHC [Mass/volume] by Automated count29.9-35.2FWayne HealthCare Main CampusV Auto (RBC) [Entitic vol]on 81-53-7738PDR (RBC) [Entitic vol]MCV [Entitic volume] by Automated count 81.0-99.0[facility] HospitalMonocytes Auto (Bld) [#/Vol]on 57-01-6914Bggggtutj (Bld) [#/Vol]Automated blood monocyte count0.3-0.8[facility] HospitalMonocytes/100 WBC Auto (Bld)on 54-11-5263Womiqtgzc/100 WBC (Bld)Automated monocyte %1.7-12.0[facility] Neutrophils Auto (Bld) [#/Vol]on 10-43-4306Ynussgmrzvh (Bld) [#/Vol]Neutrophils [#/volume] in Blood by Automated count1.4-6.5[facility] Neutrophils/100 WBC Auto (Bld)on 90-75-2393Jzvwakielaq/100 WBC (Bld)Automated neutrophil %43.0-75.0[facility] HospitalNo Panel Informationon 33-05-4779Ykodcslapda # (Auto)0.1 10 3/uL0.0-0.7FCleveland Clinic Mentor HospitalFolate21.20 ng/mL8.60-58.90[facility] HospitalImmature Granulocyte # (Auto)0.01 10 3/uL0.00-0.03[facility] Platelet mean volume Auto (Bld) [Entitic vol]on 31-81-1324Nrkzzvzq mean volume (Bld) [Entitic vol]Platelet mean volume [Entitic volume] in Blood by Automated countLow9.5-13.5FC[facility] Clinic Ment[facility] HospitalPlatelets Auto (Bld) [#/Vol]on 91-67-3008Tpimjqcsy (Bld) [#/Vol]Platelets [#/volume] in Blood by Automated qvzui126-652YaqxkfjsvClinton Memorial HospitalRBC Auto (Bld) [#/Vol]on 02-09-2024 RBC (Bld) [#/Vol]Erythrocytes [#/volume] in Blood by Automated countLow4.20-5.40 [facility] Centererum or plasma anion gap determinationon 95-68-9641Wbugh gap [Moles/Vol]Serum or plasma anion gap determinationClinton Memorial HospitalEstimated glomerular filtration rate (GFR) non- Americanon 39-10-9239IBV/1.73 sq M.predicted among non-blacks MDRD (S/P/Bld) [Vol rate/Area]Estimated glomerular filtration rate (GFR) non- Low>=60 mL/min/1.73m 2FC[facility] Ment[facility] HospitalLaboratory - Chemistry and Chemistry - challengeon 35-16-2356Vupzldq [Mass/Vol]9.7 mg/dL8.5-10.1 [facility] HospitalChloride [Moles/Vol]106 mmol/V06-398YsrbmplfaClinton Memorial HospitalCO2 [Moles/Vol]29.9 mmol/L21.0-32.0[facility] HospitalCreatinine [Mass/Vol]1.26 mg/dLHigh0.55-1.02[facility] HospitalGFR/1.73 sq M.predicted MDRD (S/P/Bld) [Vol rate/Area]50 mL/min/{1.73_m2}Low>=60 mL/min/1.73m [address] [place], [place] [address]Glucose [Mass/Vol]91 mg/pI24-408YmjxgjsnoClinton Memorial HospitalPotassium [Moles/Vol] 3.7 mmol/L3.5-5.1FC[facility]ron Generalodium [Moles/Vol]143 mmol/L 136-145[facility] HospitalUrea nitrogen [Mass/Vol]21.0 mg/dLHigh 7.0-18.0[facility] HospitalUrea nitrogen/Creatinine [Mass ratio] 16.7 mg/mgClinton Memorial HospitalNo Panel Informationon 42-95-510122- Hydroxy Vitamin D Total68.1 ng/mLClinton Memorial HospitalComment on above:<20 ng/mL Vit D sbgkfvyft55-<30 ng/mL Vit D vddbzekzjwmh71-640 ng/mL Vit D sufficient>100 ng/mL Potential ToxicitySerum or plasma anion gap determinationon 13-94-9694Kvjfd gap [Moles/Vol]Serum or plasma anion gap determinationClinton Memorial HospitalCBC AUTO DIFFon 60-63-2807XPON #0.0 103/ulNormal0.0-0.1 [facility] HospitalComment on above:Performed By: #### CBC ####[facility] [address] [place], [place] [address]Dr.Yilan Madison Basophils/100 WBC (Bld)0.7 %Normal0.2-2.0The [facility] [address] HospitalComment on above: Performed By: #### CBC ####[facility] V[address]upxlrgf[address] [place], [place] [address]Dr.Yilan ChangEO #0.1 103/ulNormal0.0-0.7The [facility] [address] HospitalComment on above:Performed By: #### CBC ####[facility] U[address]eyj[address] [place], [place] [address]Dr.Yilan ChangEosinophils/100 WBC (Bld)1.5 %Normal0.9-7.0[address] [facility] [address] HospitalComment on above:Performed By: #### CBC ####[facility] V[address]vjfuzkwm[address] [place], [place] [address]Dr.Yilan ChangErythrocyte distribution width (RBC) [Ratio]13.2 %Normal 11.0-15.0[address] [facility] [address] HospitalComment on above:Performed By: #### CBC ####[facility] [address]avuh[address] [place], [place] [address]Dr. Yilan ChangHematocrit (Bld) [Volume fraction]34.1 %Critically low36.0-48.0[address] [facility] [address] HospitalComment on above:Performed By: #### CBC ####[facility] [address]qgqv[address] [place], [place] [address]Dr.Yilan ChangHemoglobin (Bld) [Mass/Vol]11.7 g/dLCritically low12.0-16.0The [facility] [address] HospitalComment on above:Performed By: #### CBC ####[facility] Odkerxwvzf[address] [place], [place] [address]Dr.Yilan ChangIG #0.02 10e3/ulNormal0.00-0.03The [facility] HospitalComment on above:Performed By: #### CBC ####[facility] M[address]keimm[address] [place], [place] [address]Dr.Yilan ChangIG %0.4 %Normal 0.0-0.5The [facility] [address] HospitalComment on above:Performed By: #### CBC ####[facility] Eiib[address]rlgl[address] [place], [place] [address]DrAryanVirginiasunita MadisonLEWISGALE H[facility]PITAL ALLEGHANY #1.2 103/ulNormal1.2-3.8[address] [facility] [address] HospitalComment on above:Performed By: #### CBC ####[facility] J[address]qc[address] [place], [place] [address]DrAryanTanner LosAmsterdam Memorial Hospitalhocytes/100 WBC (Bld)25.6 %Fwrdrk67.5-60.0[address] [facility] [address] HospitalComment on above:Performed By: #### CBC ####[facility] [address] [place], [place] [address]DrAzeem MadisonUNIVERSITY H[facility]ALS [facility] DIFF REQ NONormalThe Wilson Street HospitalComment on above:Performed By: #### CBC ####[facility] T[address]os[address] [place], [place] [address]DrAryan MadisonMOUNT VERNON [facility] (RBC) [Entitic mass]30.9 ikJcgnse20.7-34.0[facility] Comment on above:Performed By: #### CBC ####[facility] Elbynefibp[address] [place], [place] [address]DrAryanVirginiasunita MadisonGOUVERNEUR HEALTH (RBC) [Mass/Vol]34.3 g/dL Hryczy34.9-35.2The [facility] [address] HospitalComment on above:Performed By: #### CBC ####[facility] Ifnxkg[address]bl[address] [place], [place] [address]DrAryan Virginiasunita MadisonOKLAHOMA HE[facility] [place] (RBC) [Entitic vol]90.0 wJErjtwk38.0-99.0[facility] Comment on above:Performed By: #### CBC ####[facility] [address]qyinmrojf[address] [place], [place] [address]DrAzeem MadisonHAWTHORN CH[facility] #0.4 103/ulNormal0.3-0.[address] HospitalComment on above:Performed By: #### CBC ####[facility] I[address]xkrctdd[address] [place], [place] [address]DrAzeem Madison Monocytes/100 WBC (Bld)7.6 %Normal1.7-12.0[address] [facility] [address] HospitalComment on above: Performed By: #### CBC ####[facility] [address] [place] [address]Dr.Tanner MadisonNEUT #3.0 103/ulNormal1.4-6.5The [facility] [address] HospitalComment on above:Performed By: #### CBC ####[facility] [address] [place] [address]Dr.Tanner MadisonNeutrophils/100 WBC (Bld)64.2 %Kunbos49.0-75.0[address] [facility] [address] HospitalComment on above:Performed By: #### CBC ####[facility] F[address]zl[address] [place], [place] [address]Dr.Tanner MadisonPlatelet mean volume (Bld) [Entitic vol]8.5 fLCritically low 9.5-13.5The [facility] [address] HospitalComment on above:Performed By: #### CBC ####[facility] [address] [place], [place] [address]Dr. Tanner MadisonPLT269 103/dpKvmors842-099Ubn [facility] [address] HospitalComment on above: Performed By: #### CBC ####[facility] Y[address]zbjifgp[address] [place], [place] [address]Dr.Tanner MadisonRBC3.79 106/ulCritically low4.20-5.40The [facility] [address] HospitalComment on above:Performed By: #### CBC ####[facility] I[address]pxkmxtq[address] [place], [place] [address]Dr.Tanner MadisonWBC4.6 103/ul Normal4.0-11.0The [facility] [address] HospitalComment on above:Performed By: #### CBC ####[facility] [address]ufct[address] [place], [place] [address]Dr. Tanner ChangMG MAMM SCREEN 3D VIJAYA CADon 56-67-1354WA MAMM SCREEN 3D VIJAYA CAD Patient: KIMBERLY WHITE Exam Date: 03/08/2022 : 1950 Gender:F Ordering : DR KAR MOTA D.O. Admission #: [id number] Family : Order #: [id number] CLICK HERE TO VIEW EXAM RADIOLOGY REPORT [...] breast cancer at age 48. LOCATION: [facility] BREAST COMPOSITION: Extremely dense, which lowers [...] by: Jeff Fregoso MD on 03/08/2022 at 12:18[facility]HealthPROF CHEM 8 (BAS METB)on 29-97-3094Earxv gap [Moles/Vol]11.0 mmol/LNormalLutheran HospitalComment on above:Performed By: #### TSH, BMP #### [facility] [address] [address] [address] Tanner MadisonCalcium [Mass/Vol]9.5 mg/dLNormal8.5-10.1[facility] Comment on above:Performed By: #### TSH, BMP #### [facility] [address] [address] [address] Tanner MadisonChloride [Moles/Vol]103 mmol/SYnsmqr43-629JiiLutheran Hospital Comment on above:Performed By: #### TSH, BMP #### [facility] [address] [address] [address] Tanner MadisonCO2 [Moles/Vol]30.1 mmol/DUdxrsc83.0-32.0[facility] Comment on above:Performed By: #### TSH, BMP #### [facility] [address] [address] [address] Tanner MadisonCreatinine [Mass/Vol]0.98 mg/dLNormal0.55-1.02The [facility] [address] HospitalComment on above:Performed By: #### TSH, BMP #### [facility] [address] [address] [address] Tanner MosqueraGFR-AF ANGUILLAN>60Normal>=60[address] [facility] [address] HospitalComment on above:Performed By: #### TSH, BMP #### [facility] [address] [address] [address] Tanner MosqueraGFR-NON AF WJAUTOIV20 mL/min/1.58x0Uazotulitr low>=60[address] [facility] [address] HospitalComment on above:Performed By: #### TSH, BMP #### [facility] [address] [address] [address] Tanner MadisonGlucose [Mass/Vol]91 mg/sXAuyeqo00-139JdgLutheran Hospital Comment on above:Performed By: #### TSH, BMP #### [facility] [address] [address] [address] Tanner MadisonPotassium [Moles/Vol]4.1 mmol/LNormal3.5-5.1[facility] Comment on above:Performed By: #### TSH, BMP #### [facility] [address] [address] [address] Tanner MadisonSodium [Moles/Vol]140 mmol/QBnmhfd619-006Vgc [facility] Comment on above:Performed By: #### TSH, BMP #### [facility] [address] [address] [address] Tanner MadisonUrea nitrogen [Mass/Vol]14.0 mg/dLNormal7.0-18.0[address] [facility] [address] HospitalComment on above:Performed By: #### TSH, BMP #### [facility] [address] [address] [address] Tanner MadisonUrea nitrogen/Creatinine [Mass ratio]14.3 mg/mgNormalThe [facility] HospitalComment on above:Performed By: #### TSH, BMP #### [facility] [address] [address] [address] Tanner Chirinos 55-53-8881JBN5.659 uIU/mLNormal0.358-3.740L[facility] HospitalComment on above:Performed By: #### TSH, BMP #### [facility] [address] [address] [address] Tanner MadisonVITAMIN D 25 OHon 26-36-3256KQI D 25-OH63.4 ng/mLNormalThe Wilson Street HospitalComment on above:Performed By: #### VITAD ####[facility] [address] [place] [address]Dr. Tanner MadisonVIT D RANGES SEE BELOWOhioHealthComment on above:Result Comment: <20 ng/mL Vit D deficient 20 - <30 ng/mL Vit D insufficient 30 - 100 ng/mL Vit D sufficient >100 ng/mL Potential ToxicityPerformed By: #### VITAD ####[facility] [address] [place] [address]Dr. Tanner MadisonXR DEXA BONE DENSITYon 83-29-5153ZV DEXA BONE DENSITYEXAMINATION: XR DEXA BONE DENSITY, 03/08/2022 9:42 AM [...] Electronically authenticated by: MARTA ELIAS Date: 2022-03-08 10:52OhioHealthCNPNon 62-88-4255METFHtqvjxtpu (NIQ) LEKIMBERLY Stephanie ([id number]) 1950 F Date Time Provider Department 11/16/21 [...] (None) Encounter Status:Closed by RAYSA RICO on 11/23/21[facility] LSPINE WO CONon 25-51-8831LUS LSPINE WO CONEXAMINATION: MRI LSPINE WO CON HISTORY: Scoliosis deformity [...] Electronically authenticated by: MARTA ELIAS Date: 2021-11-04 06:[address] [place] [address] WO CONon 32-74-2397MZX TSPINE [facility]: Scoliosis deformity of spine [...] Electronically authenticated by: JEFF FREGOSO Date: 2021-11-03 19:07NormalThe [address] HospitalVIT D 25-OH LABCORPon 27-70-8907Evzkzfa D, 25-Fghtwfx22.8 ng/mL Emlmle39.0-100.0[facility] HospitalComment on above:Result Comment: Vitamin D deficiency has been defined by the [place] of Medicine and an Endocrine Society practice guideline as a level of serum 25-OH vitamin D less than 20 ng/mL (1,2). The Endocrine Society went on to further define vitamin D insufficiency as a level between 21 and 29 ng/mL (2). 1. IOM ([place] of Medicine). 2010. Dietary reference intakes for calcium and D. [place]: The National Academies Press. 2. Mikal MF, Jayy LEMOS, Zi MACHADO, et al. Evaluation, treatment, and prevention of vitamin D deficiency: an Endocrine Society clinical practice guideline. JCEM. 2010; 96(7):1911-30.Performed By: #### VITADLC #### [facility] [address] [place] [address] Dr. Tanner Harvey AUTO DIFFon 92-72-0568POGD #0.0 103/ulNormal0.0-0.1[facility] HospitalComment on above:Performed By: #### CBC #### [facility] [address] [address] [address] Tanner MadisonBasophils/100 WBC (Bld)0.6 %Normal0.2-2.0[facility] Comment on above:Performed By: #### CBC #### [facility] [address] [place] [address] [address] Tanner Resendez #0.1 103/ulNormal0.0-0.7The [facility] [address] HospitalComment on above: Performed By: #### CBC #### [facility] [address] [address] [address] Tanner Mosqueraosinophils/100 WBC (Bld)1.1 %Normal0.9-7.0[facility] Comment on above:Performed By: #### CBC #### [facility] [address] [place] [address] Dr. Tanner Mosquerarythrocyte distribution width (RBC) [Ratio]13.5 %Zjccua21.0-15.[address] HospitalComment on above:Performed By: #### CBC #### [facility] [address] [place] [address] Dr. Tanner MadisonHematocrit (Bld) [Volume fraction]31.7 %Critically low36.0-48.[address] HospitalComment on above:Performed By: #### CBC #### [facility] [address] [place] [address] Dr. Tanner MadisonHemoglobin (Bld) [Mass/Vol]10.8 g/dLCritically low12.0-16.0The [facility] Medical Centerment on above:Performed By: #### CBC #### [facility] [address] [place] [address] Dr. Tanner Clark #0.01 10e3/ulNormal0.00-0.03[facility] on above:Performed By: #### CBC #### [facility] [address] [place] [address] Dr. Tanner Clark %0.2 %Normal0.0-0.5[facility] on above: Performed By: #### CBC #### [facility] [address] [place] [address] Dr. Tanner CordobaH #1.3 103/ulNormal1.2-3.8The [facility] [address] HospitalComment on above:Performed By: #### CBC #### [facility] [address] [place] [address] Dr. Tanner Connorsmphocytes/100 WBC (Bld)24.0 %Rsrhsi70.5-60.0[facility] on above:Performed By: #### CBC #### [facility] [address] [place] [address] Dr. Tanner BrightUAL DIFF REQNONormalThe [facility] Street HospitalComment on above: Performed By: #### CBC #### [facility] [address] [address] [address] Tanner Aguilar (RBC) [Entitic mass]31.0 irVfhepi86.7-34.0[address] [facility] [address] HospitalComment on above:Performed By: #### CBC #### [facility] [address] [address] [address] Tanner Aguilar (RBC) [Mass/Vol]34.1 g/hCJszdfz21.9-35.2The [facility] HospitalComment on above:Performed By: #### CBC #### [facility] [address] [place] [address] Dr. Tanner Aguilar (RBC) [Entitic vol]91.1 uSOvdfue69.0-99.0[address] [facility] [address] HospitalComment on above:Performed By: #### CBC #### [facility] [address] [place] [address] Dr. Tanner Barrios #0.5 103/ulNormal0.3-0.8The [facility] [address] HospitalComment on above:Performed By: #### CBC #### [facility] [address] [address] [address] Tanner Rameshocytes/100 WBC (Bld)8.3 %Normal1.7-12.0[facility] Comment on above:Performed By: #### CBC #### [facility] [address] [place] [address] Dr. Tanner Phillips #3.6 103/ulNormal1.4-6.5[address] [facility] [address] HospitalComment on above:Performed By: #### CBC #### [facility] [address] [place] [address] Dr. Tanner Espinozautrophils/100 WBC (Bld)65.8 %Xolnye65.0-75.0[address] [facility] [address] HospitalComment on above:Performed By: #### CBC #### [facility] [address] [place] [address] Dr. Tanner Juarezlet mean volume (Bld) [Entitic vol]8.6 fLCritically low 9.5-13.5The [facility] [address] HospitalComment on above:Performed By: #### CBC #### [facility] [address] [address] [address] Tanner MadisonPLT234 103/ujRqpzpc287-717Qxq [facility] HospitalComment on above: Performed By: #### CBC #### [facility] [address] [address] [address] Tanner MadisonRBC3.48 106/ulCritically low4.20-5.40The [facility] HospitalComment on above:Performed By: #### CBC #### [facility] [address] [address] [address] Tanner MadisonWBC5.4 103/ulNormal4.0-11.0[address] [facility] [address] HospitalComment on above: Performed By: #### CBC #### [facility] [address] [address] [address] Tanner MadisonPROF CHEM 8 (BAS METB)on 30-34-4159Iqfde gap [Moles/Vol]12.7 mmol/LNormalThe [facility] Street HospitalComment on above:Performed By: #### BMP ####[facility] [address] [place], [place] [address]DrAryan Hart ChangCalcium [Mass/Vol]9.2 mg/dLNormal8.5-10.1[address] [facility] [address] HospitalComment on above:Performed By: #### BMP ####[facility] [address] [place], [place] [address]DrAzeem ChangChloride [Moles/Vol]102 mmol/LNormal 98-107The [facility] [address] HospitalComment on above:Performed By: #### BMP ####[facility] [address] [place], [place] [address]DrAzeem ChangCO2 [Moles/Vol]30.4 mmol/CGdnmho01.0-32.0[address] [facility] [address] HospitalComment on above: Performed By: #### BMP ####[facility] [address] [place], [place] [address]DrAzeem ChangCreatinine [Mass/Vol]1.07 mg/dL Critically high0.55-1.02The [facility] [address] HospitalComment on above:Performed By: #### BMP ####[facility] [address]fr[address] [place], [place] [address]Dr.Yilan ChangEGFR-AF ANGUILLAN>60Normal>=60The [facility] [address] HospitalComment on above:Performed By: #### BMP ####[facility] [address] [place], [place] [address]Dr.Yilan ChangEGFR-NON AF KTHCMNXS80 mL/min/1.73m2 Critically low>=60The [facility] [address] HospitalComment on above:Performed By: #### BMP ####[facility] [address] [place], [place] [address]Dr. Tanner ChangGlucose [Mass/Vol]99 mg/yPUwfabs93-321O[address] [facility] [address] HospitalComment on above:Performed By: #### BMP ####[facility] Swkvluends[address] [place], [place] [address]Dr.Tanner ChangPotassium [Moles/Vol]4.1 mmol/LNormal 3.5-5.1The [address] HospitalComment on above:Performed By: #### BMP ####[facility] G[address] [place], [place] [address]Dr.Tanner Madison Sodium [Moles/Vol]141 mmol/CRuqyot552-228[address] HospitalComment on above: Performed By: #### BMP ####[facility] Cu[address]mirasp[address] [place], [place] [address]Dr.Yilan ChangUrea nitrogen [Mass/Vol]16.0 mg/dLNormal 7.0-18.0The [address] HospitalComment on above:Performed By: #### BMP ####[facility] Ik[address]shobni[address] [place], [place] [address]Dr. Virginialan ChangUrea nitrogen/Creatinine [Mass ratio]15.0 mg/mgNormalThe Wilson Street HospitalComment on above:Performed By: #### BMP ####[facility] A[address] [place], [place] [address]Dr.Tanner MadisonCNOVon 91-45-8534YEROYtwzvi Visit (SPVAMN) KIMBERLY WHITE ([id number]) 1950 F Date Time Provider Department 10/15/21 2:00 PM ANCELMO SANDOVAL [facility] During your visit today, we recorded the [...] such a short period (more content not included)...NormalGlenbeigh HospitalXR SCOLIOSIS 2V PA STAND/LATon 36-42-7555VF SCOLIOSIS 2V PA STAND/LAT* * *Final Report* * * DATE OF [...] abnormality. IMPRESSION: Thoracolumbar scoliosis and degenerative changes. Junior Programmer: BLANE Transcribe Date/Time: Oct 15 2021 2:52P Dictated by : CHETNA HERNANDEZ MD This examination was interpreted and the report reviewed and electronically signed by: CHETNA HERNANDEZ MD on Oct 15 2021 2:54PM EST [id number] HospitalXR SCOLIOSIS PA STAND/LAT 2Von 28-10-7777Cppxolymq [facility] 08-27-2021L Specimen: [id number] Received: 08/27/21 Status: VINOD Norristevin Num: [id number] Spec Type: Surgical Subm Dr: Will Ma MD Tissues: A Gastric Biopsy (GASTRIC BXS) Procedures: HE Stain/2, Gross/Micro L4 Patient Age/Sex Location Account Attending Physician Kimberly White 70/F [id number] Will Ma MD SPEC NUM: [id number] RECD: 08/27/21 STATUS: VINOD NORRISTevin NUM: [id number] JHONNY: 08/27/21- DR: Will Ma MD ENTERED: 08/27/[address]: SPEC TYPE: Surgical DEPT: S ORDERED: [...] microscopic findings support the above pathologic diagnosis. [id number] Specimen: [id number] Received: 08/27/21 Status: VINOD Norristevin Num: [id number] Spec Type: Surgical Subm Dr: Will Ma MD Tissues: A Gastric Biopsy (GASTRIC BXS) Procedures: HE Stain/2, Gross/Micro L4 Patient: Kimberly White [id number] (Continued) Signed (signature on file) Nisreen Marquez MD 08/31/21 7609 NormalCl[facility] HospitalCOVID-19 [facility] 29-16-5776OLWV-CoV-2 (COVID-19) RNA JEFFRY+probe Ql (Unsp spec)NegativeNormalNegativeClinton Memorial HospitalComment on above:Order Comment: Healthcare Worker?: NResult Comment: Testing for SARS-CoV-2 by RT-PCR This test was developed and its performance characteristics determined by [employer]) and validated at the [facility]. This test has not been [...] is terminated or revoked sooner. PERFORMED BY: [facility] [address] [place] [address] PATHOLOGIST SUPERVISOR ADVICE NISREEN MARQUEZ M.D.Performed By: #### COVID 19 [facility] #### [address] Vital Signs Date TimeVital SignValuePerforming GvkgquzegLozyuszx07-99-2694 09:23-0400Body .02 cmBenjamin Ball DO Work Phone: [facility]07-21-2025 09:23-0400 Body mass index (BMI) [Ratio]19 kg/r9Srndcrik Ball DO Work Phone: [facility]07-21-2025 09:23-0400 Body .7 kgBenjamin Ball DO Work Phone: [facility]07-21-2025 09:23-0400 Diastolic blood pojhycuz96 mm[Hg]Kar Ball DO Work Phone: [facility]07-21-2025 09:23-0400 Heart rate71 /minBenjamin Ball DO Work Phone: [facility]07-21-2025 09:23-0400 Respiratory rate12 /minBenjamin Ball DO Work Phone: [facility]07-21-2025 09:23-0400 Systolic blood mm[Hg]Kar Ball DO Work Phone: [facility]03-12-2025 08:59-0400 Body umwhha891.02 cmClinton [facility] Hospital03-12-2025 08:59-0400Body mass index (BMI) [Ratio]20.2 kg/f8PbzquexbgClinton Memorial Hospital03-12-2025 08:59-0400Body jupmlu51.93 kgClinton [facility] Hospital03-12-2025 08:59-0400Diastolic blood xddtlitv33 mm[Hg][facility] 05-08-2024 08:59-0400Heart rate70 /[facility] 05-08-2024 08:59-0400Respiratory rate12 /[facility] 05-08-2024 08:59-0400Systolic blood vfgqezso581 mm[Hg][facility]06-06-2024 10:08-0400Body dianmw797.02 cmCl[facility] Hospital06-06-2024 10:08-0400Body mass index (BMI) [Ratio]19.7 kg/o1NbopkhsfwClinton Memorial Hospital06-06-2024 10:08-0400Body .57 kgCl[facility] Hospital06-06-2024 10:08-0400Diastolic blood dxqhjulo10 mm[Hg] [facility]06-06-2024 10:08-0400Heart rate70 /[facility]06-06-2024 10:08-0400Respiratory rate12 /[facility]06-06-2024 10:08-0400Systolic blood yybyqgkf078 mm[Hg] [facility]07-31-2023 10:30-0400Body nqdekd648.02 cm Kar Ball Other [employer] Other 07-31-2023 10:30-0400Body mass index (BMI) [Ratio] 19.31 kg/d8Lbfqcxxc Ball Other [employer] Other 07-31-2023 10:30-0400Body ykzrkx93.44 kgBenjamin Ball Other [employer] Other 07-31-2023 10:30-0400Diastolic blood ksevhrce32 mm[Hg] Kar Ball Other [employer] Other 07-31-2023 10:30-0400Respiratory rate12 /minBenjamin Ball Other [employer] Other 07-31-2023 10:30-0400Systolic blood mm[Hg] Kar Ball Other [employer] Other 531594-26-0116 10:22-0500Body saizli258 cmJose A Hong MD Work Phone: [facility]12-06-2022 10:22-0500Body oysedv39.9 kgJose A Hong MD Work Phone: [facility]12-06-2022 10:22-0500Diastolic blood odzmmljg18 mm[Hg]Jose A Hong MD Work Phone: [facility]12-06-2022 10:22-0500Heart rate71 /min Jose A Hong MD Work Phone: [facility]12-06-2022 10:22-0500Respiratory rate 14 /minDjoseph Hong MD Work Phone: [facility]12-06-2022 10:22-3160HcP2% (BldA) [Mass fraction]98 %Jose A Hong MD Work Phone: [facility]12-06-2022 10:0500Systolic blood xxoadssx027 mm[Hg]Jose A Hong MD Work Phone: [facility] Encounters Encounter DateEncounter TypeCare ProviderFacilityStart: 12-18-2024 End: 53-40-6086iaoxtldwraFrahtvsu Ball DO Work Phone: [facility] ClinicStart: 12-18-2024 End: 58-47-8242Ndlsdvy encounter procedureBenjamin Ball DO-[facility] Work Phone: Start: 11-18-2024 End: 67-37-4577ilpbknplopVjhulqft Ball DO Work Phone: [facility] Work Phone: Start: 11-18-2024 End: 30-36-2274Eyetwok encounter procedureBenjamin Ball DO-[facility] Work Phone: Start: 11-06-2024 End: 36-58-1080mbehikvfzdZceryeyo Ball DO Work Phone: [facility] Work Phone: Start: 11-06-2024 End: 79-10-5823Txktuao encounter procedureBenjamin Ball DO-[facility] Work Phone: Start: 10-17-2024 End: 75-69-1098hbxhrktnraXjygyjvb Ball DO Work Phone: [facility] Work Phone: Start: 10-17-2024 End: 10-85-2023Uwyjioh encounter procedureBenfei Mota DO-[facility] Work Phone: Start: 38-53-3751Rry-patient / Non-visitBenfei Mota DO-[facility] Work Phone: Start: 09-30-2024 End: 99-57-1513gmfhmwzizpDirdalpCorey Matthews MDFacility:KELLY Barillas Start: 09-16-2024 End: 76-28-9857luxyoufwetZlqrfuom Ball DO Work Phone: [facility] Work Phone: Start: 09-16-2024 End: 91-05-1311Ibinhar encounter procedureBenfei Mota DO-[facility] Work Phone: Start: 08-12-2024 End: 97-07-0451Emxtcyf encounter procedureBenfei Mota DO-[facility] Work Phone: Start: 07-11-2024 End: 92-54-1222rampaxgaosPqazbzpajGenesis Hospital Work Phone: Start: 07-11-2024 End: 66-96-3065Dhbhefi encounter procedureFirpacoimas Physician Group-[facility] Work Phone: Start: 06-07-2024 End: 59-82-0285dzgqneuytxWpqoztkknGenesis Hospital Work Phone: Start: 06-07-2024 End: 76-99-4913Irviyhn encounter procedureFirelands Physician Group-[facility] Work Phone: Start: 05-08-2024 End: 87-49-9338zhmijdxiuhBkewrdjaeGenesis Hospital Work Phone: Start: 05-08-2024 End: 14-66-5783Qbzopwm encounter procedureFirelands Physician Group-[facility] Work Phone: Start: 82-73-0762Auv-patient / Non-visitFirelands Physician Group-[facility] Work Phone: Start: 04-08-2024 End: 56-22-3550ppzkalcaifBzpgxfsdqGenesis Hospital Work Phone: Start: 04-08-2024 End: 30-12-7864Dmsjbnk encounter procedureFirelands Physician Group-[facility] Work Phone: Start: 03-07-2024 End: 61-51-9318axldslejpnKgdptekqaGenesis Hospital Work Phone: Start: 03-07-2024 End: 07-65-7931Zmudfve encounter procedureFirelands Physician Group-[facility] Work Phone: Start: 02-29-2024 End: 86-90-1652eptlfecmuePwhoqpcvbGenesis Hospital Work Phone: Start: 02-29-2024 End: 36-83-0653Xwhwwdz encounter procedureFirelands Physician Group-[facility] Work Phone: Start: 02-22-2024 End: 39-03-7572Zsoxgwx encounter procedureFirelands Physician Group-[facility] Work Phone: Start: 02-19-2024 End: 73-98-8175cwcsibgcowHajamdy Vytautas Giedraitis MDFacility:PM Eran Start: 02-15-2024 End: 63-11-0121Bttbbvc encounter procedureFirelands Physician Group-[facility] Work Phone: Start: 18-37-7445Ybz-patient / Non-visitFirelands Physician Group-[facility] Work Phone: Start: 49-21-5159Luj-patient / Non-visitFirelands Physician Group-[facility] Work Phone: Start: 11-16-2023 End: 30-25-7235ctrwvtuwceFmayjzxxcGenesis Hospital Work Phone: Start: 11-16-2023 End: 56-67-3680Omafqrv encounter procedureFormerly [facility] Work Phone: Start: 08-03-2023 End: 91-84-4759omawyhgfviItotzygtrGenesis Hospital Work Phone: Start: 08-03-2023 End: 63-88-3950Jfgjswi encounter procedureFormerly [facility] Work Phone: Start: 57-44-5183Gxd-patient / Non-visitFirwinchester medical center [facility] Work Phone: Start: 03-27-2023 End: 81-90-4335ngkcuvcgyxHhwbepgm Ball Other [employer] Other Start: 82-83-2227Fhnrrh outpatient visit 15 minutes Kar BallFPG [facility] Medical ClinicStart: 30-97-2380Vufdaycpf encounterBenjamin BallFP[facility] ClinicStart: 01-23-2023 End: 07-76-5243uthneczqogAwpvotdv Ball Other [employer] Other Start: 99-68-8758Hgklwgkuh encounterBenjamin BallFP[facility] ClinicStart: 11-29-2022 End: 27-63-0510elwiblvcydYewtewsp Ball Other [employer] Other Start: 72-10-0786Bamfrzfvl encounterBenjamin BallFPG [facility] ClinicStart: 11-28-2022 End: 16-02-1274tzifryyrgtKyvipqai Ball Other [employer] Other Start: 21-32-4411Kqbwxjp evaluation of patient and reportKar Mota [facility] ClinicStart: 11-99-3240Oifyvyfoy encounter Kar [facility]ota [facility]art: 10-04-2022 End: 09-23-7383chnlxfwjukXdumdflq Ball Other [employer] Other Start: 17-68-1031Quizpekww encounterBeilsa Mota [facility] ClinicStart: 09-26-2022 End: 77-64-6842gilhdwocjeUxzzyvfx Ball Other [employer] Other Start: 15-24-4710Iigiwa outpatient visit 15 minutes Kar Mota [facility] Cent[facility]art: 69-01-5423nxelocdvxoGY MARCIA E BRAUN Facility:Q9Hiarb: 05-02-2022 End: 23-27-2564ifwhkitggyGI MARCIA E BRAUNFacility:B4Baxol: 03-08-2022 End: 84-87-1133jzpkcqjnxqOB MARCIA E BRAUNFacility:R5Zjoif: 03-02-2022 End: 21-60-4119lbvuannmhmNI MARCIA E BRAUNFacility:S5Mzlkz: 84-01-3284Rzngj health examinationKar Mota Other [employer] Other Start: 02-01-2022 End: 41-55-2977ncqanuyygtQMGHEPT BONUSFacility:[facility] Hospitaltart: 02-01-2022 End: 66-67-6519Exgyayu encounter Darrell Hong MD Work Phone: Spbfw InstituteComment on above:Encounter for screening for osteoporosis (Primary Dx)Start: 01-18-2022 End: 40-66-0425urlkujziiwOF MARCIA E BRAUNFacility:C7Gnjic: 12-21-2021 End: 24-52-0631mhdjquzkxoIQ MARCIA E BRAUNFacility:V9Bfhnm: 11-30-2021 End: 11-79-6140sbgzfzszjuYO DUC [facility] .Facility:H1Bnzzd: 11-23-2021 End: 72-40-0821pbjanajyvgUB DUC S HARRIS .Facility:K1Tfsif: 12-40-0151Qiddpapku encounterCarjean carlos ELLISONC Work Phone: NeurologyComment on above:ResultsStart: 11-11-2021 End: 01-73-7685myjbhcyeeaII KAR BALLFacility:B2Qivlb: 11-03-2021 End: 37-96-3438tywnnykmvnDI KAR BALLFacility:E1Gotiu: 10-28-2021 End: 16-52-8532qrxjuvqibtDI KAR BALLFacility:W1Fijjb: 10-15-2021 End: 91-68-3675dwmmtwlyezYMNCUBB BONUSFacility:[facility] Hospitaltart: 10-15-2021 End: 43-00-3599Enkkitfmei hospital visit by physicianXr Main Qj9OknaleysxFihmmcl on above:Scoliosis of thoracolumbar spine, unspecified scoliosis type [M41.9] Procedures DateProcedureProcedure DetailPerforming ClinicianStart: 08-78-7329JN dexa axial skeletonBenjamin Ball DO Work Phone: Start: 58-25-9191CK screening mammo BI w/CADBenjamin Ball DO Work Phone: Start: 93-73-4157Nieea entir thrc lmbr crv sac spi w/skull 2/3 vwCarissa Manasa PA-C Work Phone: Start: 44-76-7411Njijicwvs for malignant neoplasm of colonBenjamin Ball Other Depression screeningBenjamin Ball Other Screening for malignant neoplasm of breastBenjamin Ball Other Plan of Treatment DateCare ActivityDetailAuthorStart: 32-11-9768GFDALTO DIRECTIVE DISCUSSION ADVANCE DIRECTIVE DISCUSSIONOhioHealth Nelsonville Health Centertart: 80-09-3605CWEJANGZPI ASSESSMENTDEPRESSION ASSESSMENTOhioHealth Nelsonville Health Centertart: 44-07-6338Lpdbtydao vaccinationINFLUENZA (#1)[facility] Centertart: 96-22-1232GUEQY-19 VACCINE (5 - Booster for Pfizer series)COVID-19 VACCINE (5 - Booster for Pfizer series) [facility] Centertart: 75-79-7922AHWITVV DIRECTIVE DISCUSSIONADVANCE DIRECTIVE DISCUSSIONOhioHealth Nelsonville Health Centertart: 62-00-7524JOVLEHKWWO ASSESSMENTDEPRESSION ASSESSMENTOhioHealth Nelsonville Health Centertart: 78-89-3382MFJZ DENSITYBONE DENSITYOhioHealth Nelsonville Health Centertart: 98-50-1537ZRFOPGOWTUAS: 65+ (1 - PCV)PNEUMOCOCCAL: 65+ (1 - PCV) [facility] Centertart: 38-48-6936AGFCLBTC VACCINE (1 of 2)SHINGRIX VACCINE (1 of 2)[facility] Centertart: 37-98-6051IIGLUEPMP (FIT-DNA)COLOGUARD (FIT-DNA) [facility] Centertart: 58-71-6707HwutwlafgxqXYOFIMAKONVMfxqglyow ClinicStart: 21-43-9357EOOPXJJUTV CANCER SCREENINGCOLORECTAL CANCER SCREENINGProm[facility]ica [facility] Start: 69-10-6652LE COLONOGRAPHYCT COLONOGRAPHYOhioHealth Nelsonville Health Centertart: 1995 DIABETES SCREENDIABETES SCREENOhioHealth Nelsonville Health Centertart: 99-20-4197OUKIV OCCULT BLOODFECAL OCCULT BLOODOhioHealth Nelsonville Health Centertart: 05-98-6031WGHME SCREENLIPID SCREEN [facility] Centertart: 86-35-8540VUNXYPAFHJVAWNOYFIBWAOWEBVDzbgiudne Clinic Start: 72-82-9884YftsmmjqhuuZANNOXAXCImhqunlcx ClinicStart: 56-34-3838Hazul microalbumin profileDTAP,TDAP,TD (1 - Tdap)[facility] Centertart: 1968 HEPATITIS C SCREENINGHEPATITIS C SCREENINGOhioHealth Nelsonville Health Centertart: 85-92-5592Cvuoq depression screening assessmentDEPRESSION SCREENINGPromedica [facility] Hospital Comprehensive metabolic 2000 panel - Serum or PlasmaClinton Memorial HospitalComprehensive metabolic 2000 panel - Serum or PlasmaClinton Memorial HospitalDXA Skeletal system.axial Views for bone densityClinton Memorial Hospital End: 17-51-0635NRA-AXIAL SKELETONDXA-AXIAL SKELETON Radiology Routine Encounter for screening for osteoporosis 1 Occurrences starting 02/01/2022 until 03/03/2023[facility] Work Phone: Comment on above:1 Occurrences starting 02/01/2022 until 03/03/2023MG Breast - [facility]Hol[facility] Immunizations Immunization DateImmunizationNotesCare NnlkfjehIpoknmon64-53-7904tkfvurvtx, high dose seasonal, preservative-freeBenjamin Ball DO Work Phone: [facility]09-19-2024influenza, high dose seasonal, preservative-freeCl[facility] Hospital09-19-2024 influenza, live, intranasal, quadrivalentCl[facility] Hospital 71-80-9131jmdmtqvfc virus vaccine, unspecified formulationCl[facility] Hospital10-02-2023influenza, high dose seasonal, preservative-freeBenjamin Ball Other [employer] Other [id number] virus vaccine, split virus (incl. purified surface antigen)Kar Mota Other [employer] Other [id number] virus vaccine, unspecified formulationCl[facility] Hospital04-03-2022COVID-19 Vaccine Pfizer - Documentation Purposes OnlyBendougmin Lashae Other [facility]10-08-2021influenza virus vaccine, split virus (incl. purified surface antigen)Kar Mota Other [employer] Other [id number] virus vaccine, unspecified formulationCl[facility] Hospital09-26-2021COVID-19 Vaccine Pfizer - Documentation Purposes OnlyBenjamin Ball Other [facility]02-20-2021COVID-19 Vaccine Pfizer - Documentation Purposes OnlyBendougmin Ball Other [facility]01-30-2021COVID-19 mRNA, Comirnaty (Pfizer)[facility]01-30-2021COVID-19 Vaccine Moderna - Documentation Purposes OnlyKar Mota Other [facility]09-10-2020influenza virus vaccine, split virus (incl. purified surface antigen)Kar Mota Other [employer] Other [id number] virus vaccine, unspecified formulationCl[facility] Hospital09-30-2019influenza virus vaccine, split virus (incl. purified surface antigen)Kar Mota Other [employer] Other [id number] virus vaccine, unspecified formulationCl[facility] Hospital10-11-2018influenza virus vaccine, split virus (incl. purified surface antigen)Kar Mota Other [employer] Other 10057110-13-8321wyqorwfhg virus vaccine, unspecified formulationCl[facility] Hospital10-23-2017influenza virus vaccine, split virus (incl. purified surface antigen)Kar Mota Other [employer] Other 10-248416-60-3207dsbtczcig virus vaccine, unspecified formulationCl[facility] Hospital10-04-2016influenza virus vaccine, split virus (incl. purified surface antigen)Kar Mota Other [employer] Other 10562880-09-9386yqsfablou virus vaccine, unspecified formulationCl[facility] Hospital03-18-2016pneumococcal conjugate vaccine, 13 valentKar Mota Other [facility]10-14-2015influenza virus vaccine, split virus (incl. purified surface antigen)Kar Mota Other [employer] Other 477415-77-3976qaylwvdtn virus vaccine, unspecified formulationCl[facility] Hospital10-22-2014tetanus and diphtheria toxoids, adsorbed, preservative free, for adult use (5 Lf of tetanus toxoid and 2 Lf of diphtheria toxoid)Kar Mota Other [facility]09-16-2014 pneumococcal polysaccharide vaccine, 23 valentKar Mota Other [facility]10-21-2013tetanus and diphtheria toxoids, adsorbed, preservative free, for adult use (5 Lf of tetanus toxoid and 2 Lf of diphtheria toxoid)Kar Mota Other [facility] Payers DatePayer CategoryPayerPolicy [id number] Health [id number] MedicareHUMANA MEDICARE HUMANA MEDICARE PPO [id number] 2017-Present [phone] [place] [address] PPO [id number] [id number] 1951 [id number] 2.0.1.607290.3.57[id number] 2..1.632731.3.57[id number] 2.840.1.577680.3.57[id number] 2.840.1.383122.3.57[id number] 2.840.1.096951.3.57[id number] 2.840.1.320397.3.57[id number] 2.16.840.1.285014.3.57[id number] 2.16.840.1.568873.3.57[id number] 2.16.840.1.274012.3.57[id number] 2.16.840.1.758587.3.57[id number] 2.16.840.1.907703.3.579.[id number] 2.16.840.1.515918.3.57[id number] 2.16.840.1.826911.3.579.2.196Self-paySelf Pay [id number] Social History DateTypeDetailFacilityStart: 08-27-2021 End: 17-61-8950Fiaakdp smoking status NHISEx-smokerPromedica Bay Park HospitalHistory of tobacco useCurrent smokerPromedica Bay Park HospitalHistory of tobacco useCigarette Smoker [facility] Centertart: 68-07-9355Zhccqzc use and exposureSmokeless tobacco non-userOhioHealth Nelsonville Health Centertart: 10-15-2021 End: 91-49-5186Uqurazk intakeLifetime non-drinker (finding)[facility] Start: 39-06-0237Kxc Assigned At BirthNot on fileOhioHealth Nelsonville Health Centertart: 10-05-2021 End: 05-64-9519Lcrpwpjn to SARS-CoV-2 (event)Not sureCarson City ClinicSex Assigned At BirthSex Assigned At [facility] [employer] Other Start: 50-94-8012Wkr Assigned At BirthFeOhioHealth Doctors Hospitaltart: 02-29-2024 End: 98-22-1949JbpTsesuq (finding)[facility] Clinical Notes 10-15-2021 to 09-16-2024 Note Date & XkukSgmwUwpcnoha08-33-3858 Evaluation note* Diagnosis Onset Date Resolution Status Admit Date Carpal tunnel syndrome on both sides acuteJuly 2024 8:54amChronic kidney diseaseacuteJuly 2024 8:54amGAD (generalized anxiety disorder)acuteJuly 2024 8:54amGERD (gastroesophageal reflux disease)acuteJuly 2024 8:54amHypertensionacuteJuly 2024 8:54am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acuteJuly 2024 8:54am OsteoporosisacuteJuly 2024 8:54amPernicious anemiaacuteJuly 2024 8:54amMedicare annual wellness visit, subsequentnon2024 8:54am Screening mammogram for breast cancernon2024 8:54am [facility] Work Phone: [phone]) 117-792403-12-2025 Evaluation note* Diagnosis Onset Date Resolution Status Admit Date Carpal tunnel syndrome on both sides acuteMarch 2024 8:54amChronic kidney diseaseacuteMarch 2024 8:54am Elevated BP without diagnosis of hypertensionacuteMarch 2024 8:54amGAD (generalized anxiety disorder)acuteMarch 2024 8:54amGERD (gastroesophageal reflux disease)acuteMarch 2024 8:54am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acuteMarch 2024 8:54amPernicious anemiaacuteMarch 2024 8:54am [facility] Work Phone: 1([phone]) 430-871003-12-2025 Evaluation note* Diagnosis Onset Date Resolution Status Admit Date Carpal tunnel syndrome on both sides acuteMarch 2024 8:54amChronic kidney diseaseacuteMarch 2024 8:54am Elevated BP without diagnosis of hypertensionacuteMarch 2024 8:54amGAD (generalized anxiety disorder)acuteMarch 2024 8:54amGERD (gastroesophageal reflux disease)acuteMarch 2024 8:54am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acuteMarch 2024 8:54amPernicious anemiaacuteMarch 2024 8:54amPernicious anemiaacuteApril 2024 8:51am [facility] Work Phone: [phone]) 444-172001-29-2024 Evaluation note* Encounter Date Diagnosis Assessment Notes Treatment Notes Treatment Clinical Notes Feb, Acute bronchitis due to other sp ecified organisms (ICD-10 - J20.8) Instructed to use Robitussin or Mucinex for cough, saline or Flonase NS for congestion, Tylenol forpain and fever. Feb,cute cough (ICD-10 - R05.1)Mucinex DM, hydrate w/ minimum 48oz water. Cough and deep breathing exercises. Feb,iarrhea of presumed infectious origin (ICD-10 - R19.7)Diet instructions Avoid milk, juices and tomato sauce. Increase banans, yogurt and cheese Call if increased frequency > 3/24 hours and watery [employer] Other 11-27-2023 Evaluation note* Encounter Date Diagnosis Assessment Notes Treatment Notes Treatment Clinical Notes Dec, Pain in thoracic spine (ICD-10 - M54.6) [employer] Other 10-02-2023 Evaluation note* Encounter Date Diagnosis Assessment Notes Treatment Notes Treatment Clinical Notes Nov, Lumbar spondylosis (ICD-10 - M47 .816) [employer] Other 07-31-2023 Evaluation note* Encounter Date Diagnosis Assessment Notes Treatment Notes Treatment Clinical Notes Aug, Age-related osteopor osis without current pathological fracture (ICD-10 - M81.0) Continue Ca and Vit D supplements. 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 Ca and Vit D supplements. 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 Ca and Vit D supplements. Continue anti resorptive therapy Aug,Irritable bowel syndrome with constipation (ICD-10 - K58.1) Instructed on high protein diet. Decrease roughage. Continue fiber but may cause increased bloating. [employer] Other 07-31-2023 Evaluation note* Encounter Date Diagnosis Assessment Notes Treatment Notes Treatment Clinical Notes Aug, Age-related osteopor osis without current pathological fracture (ICD-10 - M81.0) Continue Ca and Vit D supplements. Aug,Lumbar spondylosis (ICD-10 - M47.816)Completed PT w/o benefit Referred for bracing w/o benefit Referred to Orthopedic and Neurosurgery w/ no recommended procedures recommended. Referred to pain management w/ some benefits Continue stretching exercises and keep active but avoid strenuous activity. 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 Ca and Vit D supplements. 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 Ca and Vit D supplements. Continue anti resorptive therapy Aug,Irritable bowel syndrome with constipation (ICD-10 - K58.1) Instructed on high protein diet. Decrease roughage. Continue fiber but may cause increased bloating. [employer] Other 12-06-2022 NoteHNO ID: [id number] Author: Jose A Hong MD Service: ? [...] information obtained and documented by the physician obstetric assistant. I examined the patient and evaluated [...] when sitting. No partha (more content not included)...[facility]12-06-2022 Instructions* Patient Instructions* Ancelmo Sandoval PA-C [...] your usual activities immediately. [facility] History of Present illness Narrative* Jose [...] information obtained and documented by the physician obstetric assistant. I examined the patient and evaluated [...] Past Histories independently gathered by the clinical mining support worker and the remaining scribed note accurately describes my personal service to the patient. Jose A Hong MD documented in this encounterProm[facility]11-22-2022 NoteCONSULTATION CONSULTATION DATE: 01/18/2022 CHIEF COMPLAINT: [...] appointment to [facility] in the near future. PHYSICAL EXAM: [...] We shall await the patient's evaluation with [facility]. Subsequent to that, we will make [...] this in February, given her 's illness.[facility] [id number] Note CONSULTATION PROCEDURE DATE: 12/21/2021 CHIEF COMPLAINT: [...] has responded well to this treatment. [facility] [id number] NoteCONSULTATION CONSULTATION DATE: 11/30/2021 CHIEF COMPLAINT: Low [...] annually. The patient has been seen by [facility] with regards to the possibility of [...] was encouraged to maintain the communication with [facility] to see whether other options are available. We will repeat the testosterone cypionate on her return visit. The patient understands and would like to proceed. CC: Kathrine Marcial M.D.[facility] [id number] NoteCONSULTATION PROCEDURE DATE: 11/23/2021 PREOPERATIVE DIAGNOSIS: Lumbar [...] try to attain a neutral posture laterally.[facility] [id number] NoteCONSULTATION CONSULTATION DATE: 11/23/2021 CHIEF COMPLAINT: Left leg pain, low back pain. HISTORY OF PRESENT ILLNESS: This is a very pleasant, 71-year-old female who is known to the [facility]. The patient has an MRI of her lumbar spine, CT of the thoracic and CT of the lumbar spine. The patient has severe rotoscoliosis. The patient was seen at the [facility]. The patient states she is functioning [...] like to proceed. CC: Kathrine Marcial M.D.[facility] [id number] Miscellaneous Notes* Telephone Encounter - Cesilia Adler - 11/16/2021 1:46 PM EDT Received the following record(s) via fax. -MRI tspine wo(report) Date 11/03/21 Record(s) scanned into pt's chart. Cesilia Adler Images requested documented in this encounterPromedica [facility]09-07-2022 NotePROCEDURE: CT TSPINE WO CON, CT [...] Electronically authenticated by: JEFF FREGOSO Date: 2021-11-03 18:57[facility]09-07-[facility] NotePROCEDURE: CT TSPINE WO CON, CT [...] Electronically authenticated by: JEFF FREGOSO Date: 2021-11-03 18:57[facility]08-19-2022 NoteHNO ID: [id number] Author: Ancelmo Sandoval PA-C Service: ? Author Type: Physician Chili Maker Type: Progress Notes Filed: 10/18/2021 8:52 [...] medical record or letter via [place] mail. CONOR White is a 70 year old female [...] neuromuscular referral to (more content not included)... [facility] Diagnosis Scoliosis of thoracolumbar spine, unspecified scoliosis type documented in this encounter [facility]* Diagnosis Encounter for screening for osteoporosis- Primary Special screening for osteoporosis documented [facility] noteNo InformationNort [employer] Other Evaluation note* Diagnosis Onset Date Resolution Status Chronic kidney disease acuteElevated BP without diagnosis of hypertensionacuteGAD (generalized anxiety disorder)acuteGERD (gastroesophageal reflux disease)acute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acuteMedicare annual wellness visit, subsequentnoneactive Screening mammogram for breast cancernoneactive [facility] Work Phone: Evaluation noteNo assessment information available [facility] Work Phone: Evaluation note* Diagnosis Onset Date Resolution Status Admit Date Carpal tunnel syndrome on both sides acuteMarch 2024 8:54amChronic kidney diseaseacuteMarch 2024 8:54am Elevated BP without diagnosis of hypertensionacuteMarch 2024 8:54amGAD (generalized anxiety disorder)acuteMarch 2024 8:54amGERD (gastroesophageal reflux disease)acuteMarch 2024 8:54am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acuteMarch 2024 8:54amPernicious anemiaacuteMarch 2024 8:54am [facility] Work Phone: Evaluation note* Diagnosis Onset Date Resolution Status Admit Date Carpal tunnel syndrome on both sides acuteJuly 2024 8:54amChronic kidney diseaseacuteJuly 2024 8:54amGAD (generalized anxiety disorder)acuteJuly 2024 8:54amGERD (gastroesophageal reflux disease)acuteJuly 2024 8:54amHypertensionacuteJuly 2024 8:54am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acuteJuly 2024 8:54am OsteoporosisacuteJuly 2024 8:54amPernicious anemiaacuteJuly 2024 8:54amMedicare annual wellness visit, subsequentnoneactiveJuly 2024 8:54am Screening mammogram for breast cancernoneactiveJuly 2024 8:54am [facility] Work Phone: History general Narrative - Reported* Type Description Date Medical History Anemia, unspecified type Medical HistoryIrritable bowel syndrome with constipationMedical HistoryLumbar spondylosisMedical HistoryOsteopenia of right hipMedical HistoryOsteopenia of left hipMedical HistoryEarly satietyMedical HistoryBloatingMedical History Lumbosacral spondylosis with radiculopathyMedical HistoryGAD (generalized anxiety disorder)Medical HistoryVitamin D deficiencyMedical HistoryLumbago with sciatica, left side (resolved 07/07/2021)Surgical HistoryLEFT BREAST STEREOTACTIC [id number] BwructvKCNIQHZONFU1080Xdkcexxf CbnhlfkBFP1060 Surgical IqhxpxzEkehvirqasg2367Sjzmikwffgzfasy HistorySEE SURGICAL HX [employer] Other Reason for referral (narrative)* Diagnostic Procedure Only (Routine) - ClosedSpecialtyDiagnoses / ProceduresReferred By Contact Referred To ContactXR IMAGING Diagnoses Scoliosis of thoracolumbar spine, unspecified scoliosis type Procedures XR SCOLIOSIS PA STAND/LAT 2V RADEX ENTIR THRC LMBR CRV SAC SPI W/SKULL 2/3 VW Ancelmo Sandoval PA-C [id number] [address] Xr Imaging Referral IDStatusReasonStart DateExpiration DateVisits RequestedVisits [id number] Auto-Generated Referral [facility] HospitalReason for referral (narrative)No reason for referral information availableChildren[facility] Work Phone: Reason for visit Narrative* Diagnostic Procedure Only (Routine) - ClosedSpecialtyDiagnoses / ProceduresReferred By ContactReferred To ContactXR IMAGING Diagnoses Scoliosis of thoracolumbar spine, unspecified scoliosis type Procedures XR SCOLIOSIS PA STAND/LAT 2V RADEX ENTIR THRC LMBR CRV SAC SPI W/SKULL 2/3 Ancelmo Wild PA-C [id number] [place] [address] Xr Imaging Referral IDStatusReasonStart DateExpiration DateVisits RequestedVisits [id number] Auto-Generated Referral [facility] Summary Purpose Family History Relationship Condition Age at Onset Recorded Date/T hoda Not Specified Arthritis Unknown fatherHypertensionUnknownHeart problemUnknownDiabetes mellitusUnknownNot SpecifiedFamily history of mental disorderUnknownAnxietyUnknown Relationship Condition Age at Onset Recorded Date/T hoda mother Arthritis Unknown fatherHypertensionUnknownHeart problemUnknownDiabetes mellitusUnknownmother Family history of mental disorderUnknownAnxietyUnknown Advance Directives Advance Directive Response Recorded Date/ Time Advance Directives No August 25 10:58am Advance Directive Response Recorded Date/ Time Advance Directives No August 25 9:58am Chief Complaint and Reason for Visit Chief Complaint Amb Documentation wellnessReason for VisitChronic kidney disease Elevated BP without diagnosis of hypertension VALDEZ [...] Date Carpal tunnel syndrome on both sides Mar 2024 8:54am Chronic kidney disease May 08, 2024 8:54am Elevated BP without diagnosis of hyperte nsion May 08, 2024 8:54am VALDEZ (generalized anxiety disorder) May 08, 2024 8:54am GERD (gastroesophageal reflux disease) M [facility] 2024 8:54am Kyphoscoliosis due to degeneration of [...] Date Carpal tunnel syndrome on both sides Mar 2024 8:54am Chronic kidney disease May 08, 2024 8:54am Elevated BP without diagnosis of hyperte nsion May 08, 2024 8:54am VALDEZ (generalized anxiety disorder) May 08, 2024 8:54am GERD (gastroesophageal reflux disease) M [facility] 2024 8:54am 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 May 08, 2024 8:54am Pernicious anemia May 08, 2024 8:5 4am Pernicious anemia June 07, 2024 8:5 1am Chief Complaint Admit Date b12 shot July 11, 2024 8:59a m B12 shot August 12, 2024 9:05 am Wellness September 16, 2024 8:54 am Reason for Visit Admit Date Carpal tunnel syndrome on both sides Aug 8:54am Chronic kidney disease September 16, 2024 8 :54am VALDEZ (generalized anxiety disorder) September 16, 2024 8:54am GERD (gastroesophageal reflux disease) J [facility] 2024 8:54am Hypertension September 16, 2024 8:54 am 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 September 16, 2024 8:54am Osteoporosis September 16, 2024 8:54 am Pernicious anemia September 16, 2024 8:54 am Medicare annual wellness visit, subseque nt September 16, 2024 8:54am Screening mammogram for breast cancer Ju 2024 8:54am Chief Complaint Admit Date B12 shot August 12, 2024 9:05 am Wellness September 16, 2024 8:54 am B12 Shot October 17, 2024 8: 20am Chief Complaint Admit Date B12 shot August 12, 2024 9:05 am Wellness September 16, 2024 8:54 am B12 Shot October 17, 2024 8: 20am Flu Shot November 06, 2024 9:17am Chief Complaint Admit Date Wellness September 16, 2024 8:54 am B12 Shot October 17, 2024 8: 20am Flu Shot November 06, 2024 9:17am B12 shot November 18, 2024 8:23am Chief Complaint Admit Date B12 Shot October 17, 2024 8: 20am Flu Shot November 06, 2024 9:17am B12 shot November 18, 2024 8:23am B12 Shot December 18, 2024 8 :43am Additional Source Comments INFORMATION SOURCE (unrecogn ized section and content) DATE CREATED AUTHOR 09/02/2021 [facility] DATE CREATED AUTHOR AUTHOR'S ORGANIZ ATION 03/07/2022 [facility] DATE CREATED AUTHOR AUTHOR'S ORGANIZ ATION 07/13/2022 [facility] DATE CREATED AUTHOR AUTHOR'S ORGANIZ ATION 10/11/2024 [facility] Source Comments (unrecognize d section and content) In the event this informatio n is protected by the Federal Confidentiality of Alcohol and Drug Abuse Patient Records regulations: The Federal rules restrict any use of the information to criminally investigate or prosecute any alcohol or drug abuse patient.[facility] HospitalIn the event this information is protected by the Federal Confidentiality of Alcohol and Drug Abuse Patient Records regulations: The Federal rules restrict any use of the information to criminally investigate or prosecute any alcohol or drug abuse patient.[facility] HospitalIn the event this information is protected by the Federal Confidentiality of Alcohol and Drug Abuse Patient Records regulations: The Federal rules restrict any use of the information to criminally investigate or prosecute any alcohol or drug abuse patient.[facility] Reason for Visit (unrecogniz ed section and content) ReasonCommentsResultsReasonCommentsNew Patient Care Teams (unrecognized sec tion and content) Team Status: Active Member Role Status Narinder Mota DO Primary Care Provider Active Team Status: Inactive Member Role Status Narinder Mota DO Primary Care Provider Active Start: July 11, 2024 End: July 11ellie Mota DOAttending ProviderActiveStart: July 11, 2024 End: July 11, 2024 Team Status: Inactive Member Role Status Narinder Mota DO Primary Care Provider Active Start: August 12, 2024 End: August 12ellie Mota DOAttending ProviderActiveStart: August 12, 2024 End: August 12, 2024 Team Status: Inactive Member Role Status Narinder Mota DO Primary Care Provider Active Start: September 16, 2024 End: September 16ellie Mota DOAttending ProviderActiveStart: September 16, 2024 End: September 16, 2024 [...] Start: June 07, 2024 End: June 07, 2024Kathrine Marcial MDAquynh ProviderActiveStart: June 07, 2024 End: June 07, 2024 [...] Care Provider Active Start: July 19, 2023 Akilah Blunt RMAAttenmichael ProviderActiveStart: July 19, 2023 Team Status: Inactive Member [...] Active Start: October 15, 2024 Kar Mota DOAttending ProviderActiveStart: October 15, 2024 Team Status: Inactive Member Role Status Dates Kar Mota DO Primary Care Provider Active Start: October 17, 2024 End: October 17ellie Mota DOAttending ProviderActiveStart: October 17, 2024 End: October 17, 2024 Team Status: Inactive Member Role Status Narinder Mota DO Primary Care Provider Active Start: November 06, 2024 End: November 06ellie Mota DOAttending ProviderActiveStart: November 06, 2024 End: November 06, 2024 Team Status: Inactive Member Role Status Dates Kar Mota DO Primary Care Provider Active Start: November 18, 2024 End: November 18ellie Mota DOAttending ProviderActiveStart: November 18, 2024 End: November 18, 2024 Team Status: Active Member Role/Relationship Status Narinder Mota DO Primary Care Provider Active Team Status: Active Member Role/Relationship Status Narinder Mota DO Primary Care Provider Active Start: October 15, 2024 Kar Mota DOAttending ProviderActiveStart: October 15, 2024 Team Status: Inactive Member Role/Relationship Status Narinder Mota DO Primary Care Provider Active Start: October 17, 2024 End: October 17enfei Mota , DOAttending ProviderActiveStart: October 17, 2024 End: October 17, 2024 Team Status: Inactive Member Role/Relationship Status Narinder Mota DO Primary Care Provider Active Start: November 06, 2024 End: November 06ellie Mota , DOAttending ProviderActiveStart: November 06, 2024 End: November 06, 2024 Team Status: Inactive Member Role/Relationship Status Narinder Mota DO Primary Care Provider Active Start: November 18, 2024 End: November 18ellie Mota , DOAttending ProviderActiveStart: November 18, 2024 End: November 18, 2024 Team Status: Inactive Member Role/Relationship Status Narinder Mota DO Primary Care Provider Active Start: December 18, 2024 End: December 18ellie Mota , DOAttending ProviderActiveStart: December 18, 2024 End: December 18, 2024 Goals (unrecognized section and content) Goals [...] BE BASED ON THE PRIMARY CLINICAL RECORDS. [facility] [employer] provides no warranty or guarantee of the accuracy or completeness of information in this document.
--- NOTE | 2025-01-30 09:03 | PM.CN ---
Consult Note: HPI Data of Consult Patient: known to practice within the last 3 years Consult date: 01/30/25 Requesting Physician: Hiwot Irving NP Primary Care Provider: Kar Mota DO Consult Narrative Reason for consult: low back and RLE pain Narrative: Courtney dougherty pleasant 73 year old female presents for evaluation of chronic low back pain secondary to scoliosis, lumbar degeneration, and lumbar stenosis. pt has failed to benefit from > 6 weeks of PT/HEP, heat, ice, tylenol, NSAIDs. utilizing nabumetone, tylenol, baclofen, gabapentin with mild relief. pain today 5/10 aching with increasing pain up to 10/10 with standing, walking, lifting, twisting, pushing, pulling. notes prior DESMOND provided moderate relief but over the last few weeks she has had increasing RLE pain. cc:: CC: Hiwot Irving NP Review of Systems ROS Musculoskeletal Reports: back pain and extremity pain PFSH PFSH Medical History Rheumatoid arthritis ?M06.9 - Rheumatoid arthritis, unspecified (ICD-10) Low back pain ?M54.50 - Low back pain, unspecified (ICD-10) Family history of psychiatric condition ?Z81.8 - Family history of other mental and behavioral disorders (ICD-10) Former smoker ?Z87.891 - Personal history of nicotine dependence (ICD-10) Surgical History History of dilatation and curettage ?Z98.890 - Other specified postprocedural states (ICD-10) Meds Home Medications and Allergies Home Medications ?Medication ?Instructions ?Recorded ?Confirmed ?Type acetaminophen 325 mg tablet (Aphen) 325 mg PO Q6H PRN pain 08/09/22 09/30/24 History ozesmft-X2-njc-Q7-K69-rhxxemgcjbgp tab PO .QD 08/09/22 History 500 mg-200 unit-50 mg-1.2 mg tablet nabumetone 750 mg tablet 750 mg PO BID 08/09/22 09/30/24 History vitamins A,C,L-qmbl-umapaj 2,148 2 tab PO BID 08/09/22 09/30/24 History mcg-113 mg-45 mg-17.4 mg tablet (Eye Multivitamin) zoledronic acid 5 mg/100 mL in ea IV .YEARLY 08/09/22 History mannitol 5 %-water intravenous piggybck (Reclast) gabapentin 08/16/22 History baclofen 10 mg tablet 10 mg PO DAILY #30 tabs 11/02/22 09/30/24 Rx Allergies Allergy/AdvReac Type Severity Reaction Status Date / Time amoxicillin Allergy Hives Verified 09/30/24 07:47 nitrofurantoin (From Allergy Hives Verified 09/30/24 07:47 Macrobid) Sulfa (Sulfonamide Allergy Hives Verified 09/30/24 07:47 Antibiotics) Exam Constitutional Documenting provider has reviewed patient's vital signs: yes Common normals: no apparent distress, oriented x3 and alert General appearance: cooperative HENMT Common normals: normocephalic, hearing grossly normal bilaterally and moist oral mucous membranes Head and scalp: normocephalic Eye Common normals: PERRL Pupil: PERRL Neck & C-Spine Common normals: full ROM General: normal visual inspection Chest Common normals: inspection of chest normal Respiratory Common normals: normal respiratory effort, no retractions and no use of accessory muscles Back & Pelvis Lumbar spine/lower back: ROM limited, pain with ROM, lumbar scoliosis present and straight leg raise positive right Other: radiculopathy to right L3,4,5 with standing and walking, improves with sitting and forward flexion strength 4/5 in RLE and 5/5 in LLE significant myofascial dystonia to thoracic/lumbar column secondary to scoliosis Extremity Common normals: normal to inspection and full ROM Neuro Common normals: oriented x3 Sensorium/orientation: alert Motor exam: no movement abnormalities noted Psych Common normals: mental status grossly normal, thought process normal, cooperative, affect normal, speech normal and activity/motor behavior normal Speech: normal speech Thought process: normal thought process Results Additional Findings Additional findings: If on a controlled substance or opioids, I have checked an [place]AR[place] report on this patient and there are no aberrancies noted in the prescribing history.??If on a controlled substance or opioid a drug screen was completed and reviewed within the last year, and if there has not been a drug screen completed we ordered one today to monitor higher risk, state monitored pain medication use. As part of providing excellent, safe, comprehensive care, the following was completed at our patient's visit: 1. A medication reconciliation and review to ensure accurate knowledge of current/active medications, including asking our patients to inform us about any uhqs-ish-lckfkby medications or herbal remedies/nutritional supplements/alternative remedies. 2. A review to specifically ensure our patients have had annual screening for screening for depression, screening for tobacco use, and screening for unhealthy alcohol use. For concerning screenings had a discussion with the patient, provided patient education, and recommended follow-up with primary care provider when appropriate. If patient noted with a risk of falling, they received education on strength, gait, and balance training to prevent future risk of falling. Portions of this note may have been carried over from the previous visit and updated as appropriate. Please note this office utilizes paper charting in addition to the electronic medical record. A list of current medications, vitals, and PMH is available there as the clinical staff outside of myself do not have access to [email or web address] charting during the clinic day operations. As part of providing quality comprehensive care the current medications, vitals, and PMH were reviewed in the paper chart. Assessment and Plan Assessment and Plan (1) Lumbar stenosis with neurogenic claudication: Assessment and Plan: The patient has had over 3 months of moderate to severe low back and RLE pain with functional impairment and inadequate response to conservative care including NSAIDS (unless there are contraindication such as concurrent blood thinners), multiple oral or topical pain medications, and home exercise program/physical therapy.? Patient has completed >6 weeks of guided home exercise program and/or formal physical therapy program without relief of their symptoms.? The Oswestry Disability Index was completed, and the patient scored a 36%.? The patient noted the following:?? moderate to severe pain impacting ADLs, sitting, standing, walking, sleeping, social life, travel (2) Lumbar spondylosis: (3) Myofascial pain: (4) Scoliosis: (5) Rheumatoid arthritis: (6) Low back pain: Plan repeat right L3-4 L4-5 TFESI under fluoroscopy. prior injection provided at least 50% improvement for at least 3 months but has since worn off continue gabapentin 200mg BID through PCP, could not tolerate higher dosing continue baclofen 5-10mg HS PRN pain/spasms continue prn nabumetone through PCP f/u after procedure
== END 2025-01-30 08:26 | disposition home or self-care (01) ==
LOC: PM 08:26
PROVIDERS: PCP Internal Medicine; Visit Provider Nurse Practitioner
DX: M48.062 Spinal stenosis, lumbar region with neurogenic claudication (principal); M47.816 Spondylosis without myelopathy or radiculopathy, lumbar region; M06.9 Rheumatoid arthritis, unspecified; M41.9 Scoliosis, unspecified; M79.18 Myalgia, other site
CPT/HCPCS: G0463

== ENCOUNTER 2025-02-24 07:36 | Day surgery (SDC) | payer MEDICARE, SELFPAY ==
--- OUTSIDE RECORDS SUMMARY | 2023-11-17 05:30 | XMS_ITS ---
Author Organization [facility] Address [address] [place] [address] Care Team Providers Care Manager Helpdesk Name Role Phone HORTENCIA BHARDWAJ DO Primary Care Provider Wilfred Covarrubias Unavailable [phone] ELAINA TUCKER CNP Unavailable Unavailable Chang Salamanca Unavailable [phone] REASON FOR VISIT LUMBAR PAIN Encounters Encounter Location Date Provider Diagnosis [facility] [address] [place] [address] [address] [place] [address] 11/17/2023 Chang Salamanca Plan Of Treatment No Information Progress Notes * KIMBERLY LUJAN LDOB:1950 (74 yo F)Acc No.[id number]:11/17/2023 Patient:?KIMBERLY LUJAN :?Chang Bonner MD, PhDDOB:1950 ???Age:73 Y???Sex:FemaleDate:4Phone:[phone]:[address] [place] [id number]:HORTENCIA BHARDWAJ DO Subjective: * Chief Complaints: * 1 . LUMBAR PAIN. * Medical History: Objective: * Vitals: Assessment: Plan: * Treatment: Forms: * Images: * Electronic signature of Chang Salamanca MD, PHD on 02/24/2025 at 07:39 AM EST Sign off status: Pending * Provider: Luis Bonner MD, PhD Date: 0 11/17/2023 Generated for Printing/Faxing/eTransmitting on:?02/24/2025 07:39 AM EST
--- OUTSIDE RECORDS SUMMARY | 2023-12-01 05:30 | XMS_ITS ---
Author Organization [facility] Address [address] [place] [address] Care Team Providers Care Roller Printer Name Role Phone HORTENCIA BHARDWAJ DO Primary Care Provider Wilfred Covarrubias Unavailable [phone] ELAINA TUCKER CNP Unavailable Unavailable Chang Salamanca Unavailable [phone] REASON FOR VISIT LUMBAR PAIN Encounters Encounter Location Date Provider Diagnosis [facility] [facility] [address] [place] [address] [place] [address] 12/01/2023 Chang Salamanca Plan Of Treatment No Information Progress Notes * KIMBERLY LUJAN LDOB:1950 (74 yo F)Acc No.[id number]:12/01/2023 Patient:?KIMBERLY LUJAN :?Chang Bonner MD, PhDDOB:1950 ???Age:73 Y???Sex:FemaleDate:12/01/2023hone:[phone]:[address] [place] [phone]:HORTENCIA BHARDWAJ DO Subjective: * Chief Complaints: * 1 . LUMBAR PAIN. * Medical History: Objective: * Vitals: Assessment: Plan: * Treatment: Forms: * Images: * Electronic signature of Chang Saalmanca MD, PHD on 02/24/2025 at 07:39 AM EST Sign off status: Pending * Provider: Luis Bonner MD, PhD Date: 1 Generated for Printing/Faxing/eTransmitting on:?02/24/2025 07:39 AM EST
--- OUTSIDE RECORDS SUMMARY | 2025-02-19 03:45 | XMS_ITS | Continuity of Care Document ---
Author Organization [facility] Address [address] [place] [address] Phone Care Team Providers Care Tobacco Grader Name Role Phone Nakul Kar PERRY Primary Care Provider Kar Mota DO Attending Provider [phone] Care Teams Patient Care Team Team Status: Active Member Role/Relationship Status Dates Kar Mota DO Primary Care Provider Active Visit Care Team Team Status: Inactive Member Role/Relationship Status Dates Kar Mota DO Primary Care Provider Active Start: December 18, 2024 End: December 18Anuradha Dickens ProviderActiveStart: December 18, 2024 End: December 18, 2024 Visit Care Team Team Status: Active Member Role/Relationship Status Dates Kar Mota DO Primary Care Provider Active Start: January 13, 2025 Anuradha Larose ProviderActiveStart: January 13, 2025 Visit Care Team Team Status: Inactive Member Role/Relationship Status Dates Kar Mota DO Primary Care Provider Active Start: January 20, 2025 End: January 20ellie Mota DOAttanderson ProviderActiveStart: January 20, 2025 End: January 20, 2025 Visit Care Team Team Status: Inactive Member Role/Relationship Status Dates Kar Mota DO Primary Care Provider Active Start: February 12, 2025 End: February 12ellie Mota DOAttending ProviderActiveStart: February 12, 2025 End: February 12, 2025 Patient Care Team Team Status: Inactive Member Role/Relationship Status Dates Kar Mota DO Primary Care Provider Active Start: February 19, 2025 End: February 19enjashoaib Mota DOAttending ProviderActiveStart: February 19, 2025 End: February 19, 2025 Chief Complaint and Reason for Visit Chief Complaint Admit Date B12 Shot December 18, 2024 8 :43am B12 injection January 20, 2025 8:08am URI [phone] February 12, 2025 3:06pm B12 injection February 19, 2025 8:36am Reason for Visit Admit Date Hypertension February 12, 2025 3:06pm Acute bronchitis due to other specified organisms February 12, 2025 3:06pm Allergies, Adverse Reactions, Alerts Allergen Type Severity [...] November 13, 2023 12:52pmGabapentin 100 mg capsuleDiscontinued0.ROUTE.COMPLEX 3602Jun2023 12:08pmJuly 2023 11:22amTAKE 2 CAPSULES BY MOUTH TWICE A DAYGabapentin 100 mg egwyivmRbzhatcrxvij134CYDBWndqg jgtgb9507Jswe 2023 11:22amSeptember 2023 12:52pmNabumetone 750 mg ucukmbPkojjpdonvaw712ZRBL Twice xrscq726794Cgyouoydj 16th, 2024 12:51pmMarch 2024 8:26amGabapentin 100 mg icasbbqAlgffiduxhjk923QUVNVsfnd wdgjd362973Ljuatutbl 16th, 2024 12:52pm May 08, 2024 8:26amNabumetone 750 mg gipiylZeuejj967HIWKUvfki wkmkk41047 November 06, 2024 3:43pmUnknownGabapentin 100 mg rsymocaVpnktv322PMHBAsgdn zhmqk919173Fuvlkhfpo 10th, 2025 3:44pmUnknownAmlodipine 5 mg tabletDiscontinued5 LWFYJroee33475Bxebcdaq 2024 12:00amDecember 2024 4:55pmAmlodipine 5 mg trfgerLxzhfy3GOIILwlne35889Cfasfbei 2024 4:55pmUnknownNabumetone 750 mg ttiegsHhxyacykowsx907INILTvyql dailyJun2021 11:00pmMarch 2023 9:47pmCalcium Carbonate-Vitamin D3 (Calcium + D) 600 mg-5 mcg (200 unit) Tablet Jvgxzi5CYIBCGbedv dailyJune 2021 11:00pmUnknownAcetaminophen (Acetaminophen Extra Strength) 500 mg JbdajwWizhwl190EVCQOw Directed as needed for painJun2021 11:00pmUnknownBaclofen 10 mg ZamgevGnkjew14WSBUEwoyw at bedtimeJune 2021 11:00pmUnknownGabapentin 100 mg muduokzMasxgspdpved677ZT POTwice dailyJune 2021 11:00pmMay 2023 9:39amZoledronic Etij-Eqdpyroc-Zcmlk (Reclast) 5 mg/100 mL KhlblwuzzAeedsi6CVDKDgzzOdzg 2021 11:00pmUnknownVit C,U-Ua-Hlthr-Lutein-Zeaxan (Preservision Areds-2) 250-90-40-1 mg GenzvdlQwjaxp2IQIDFXikbu dailyJune 2021 11:00pmUnknown Omeprazole 40 mg capsule,delayed release(DR/EC)Rdyxxshfbprz77NAHEQskbk fbmfo939 840June 2021 11:00pmMarch 2024 8:19amNabumetone 750 mg tablet Gvscqwhlcpnb411APZWBydim tvcdh10199Mprhk 2024 8:25amSeptember 2024 3:44pmGabapentin 100 mg lzroqgfBahcwxmytxfa490SINBFmjse odqwl316279Cadju 2024 8:25amSeptember 2024 3:44pmGabapentin 100 mg pymwgwiPykixzaifdno789ME POTwice dailyMay 2023 11:00pmMay 2023 10:06amGabapentin 100 mg avkdzenAelerlmocjvp320EJBDKzefw zdfyw373506Mgn 2023 10:03amJune 2023 12:08pmAzithromycin 250 mg qtfowcPupfxq891XFGD.BCPGHAV959Pqmctvma 2024 12:00am2 tabs on first day followed by 1 tab on days 2-5Unknown Immunizations Immunization Event Date Not Given Reason Dose Number [employer] Lot Number Reason(s) Given Vaccine Information Statement (VIS) Detail Administration Location COVID-19 mRNA-1273 (ModernTelinet) March 28, 2020 COVID-19 Nila Ulloa ([employer])March 28OVIDNila Ruth (Pfizer)April 18OVID-19 mRNA, Comirnaty (Pfizer)November 22, 2020 COVID-19 mRNA, Comirnaty (Pfizer)May 30, 2021Fluzone TIV High-Dose 65YR+ November 16, [id number] 65YR+ November 06, [id number] Hospitalinfluenza, unspecified formulationOctober 14, 2014influenza, unspecified formulationOctober , 2015 influenza, unspecified formulationOctober , 2016influenza, unspecified formulationOctober , 2017influenza, unspecified formulationSeptember , 2018influenza, unspecified formulationSeptember , 2019influenza, unspecified formulationOctober , 2020influenza, unspecified formulationSeptember , 2021influenza, unspecified formulationOctober 2022Live Attenuated Influenza Virus Vaccine quadSeptember [id number]. OfficePneumococcal Conjugate Vaccine, 13 valentMar 2015Pneumococcal Polysacc. [...] 2025 8:58am 12.6 25-Hydroxy Vitamin D TotalNov2024 8:58amNovemb2024 8:58am 67.3 ng/mL<20 ng/mL Vit D -<30 ng/mL Vit D yzutswchkdmt67-420 ng/mL Vit D sufficient>100 ng/mL Potential ToxicityBUN/Creatinine RatioNovemb2024 8:58amNovember 2024 8:58am23.0Blood Urea NitrogenNovember 2024 8:58amNovemb2024 8:58am29.0 mg/dLAbove high normal7.0-18.0Calcium Level January 13, 2025 8:58amNovember 2024 8:58am10.1 mg/dL8.5-10.1Chloride LevelJanuary 13, 2025 8:58amNovember 2024 8:73ek509 mmol/P83-676Cqemua Dioxide LevelJanuary 13, 2025 8:58amNovember 2024 8:58am30.8 mmol/L 21.0-32.0CreatinineJanuary 13, 2025 8:58amNovember 2024 8:58am1.26 mg/dLAbove high normal0.55-1.02Estimated GFR ()January 13, 2025 8:58amNovember 2024 8:79iv38Dsdca low normal>=60 mL/min/1.73m 2 Estimated GFR (Non- AmericanJanuary 13, 2025 8:58amNovemb2024 8:03hj91Werwl low normal>=60 mL/min/1.73m 2Glucose LevelJanuary 13, 2025 8:58amNovemb2024 8:42zu460 mg/bP81-161Zhnmprxji LevelJanuary 13, 2025 8:58amNovember 2024 8:58am4.4 mmol/L3.5-5.1Sodium LevelJanuary 13, 2025 8:58amNovember 2024 8:95hz318 mmol/Z192-931 Advance Directives Advance Directive Response Recorded Date/ Time Advance Directives No August 25 9:58am Insurance Providers Guarantor Courtney White Address [address] [id number] Info.Home Phone: Payer Group Member ID Coverage Type Subscriber Relationship to Subscriber Effective Date Expiration Date [employer] [facility] Id: [id number] L Fazio Id: [id number] [address] [address] Home Phone: Self Encounters Encounter Location(s) Arrival/Admit Date Discharge/Departure Date Discharge/Departure Disposition Provider(s) Departed Physician/ Provider Office Visit -[facility] December 18, 2024 8:43am December 18, 2024 8:52am Discharged to home care or self care (routine discharge) Kar Mota DO Non-patient / Non-visit -[facility] ov2024 8:58am Moon Larose Physician/Provider [facility] 8:08amNove2024 8:32amDischarged to home care or self care (routine discharge)Moon Larose Physician/Provider Office Visit-[facility]20[facility] 3:07pmDischarged to home care or self care (routine discharge)Moon Larose [facility] 8:36amDece2024 8:44amDischarged to home care or self care (routine discharge)Kar Mota DO Recent Diagnosis Onset Date Admit Date Hypertension Unknown February 12, 025 3:06pm Acute bronchitis due to othe r specified organisms Unknown February 12, 2025 3:06pm Assessments Diagnosis Onset Date Resolution Status Admit Date Hypertension acuteFebruary 12, 2025 3:06pmAcute bronchitis due to other specified organisms noneactiveDe2024 3:06pm Plan of Treatment Author [facility] 2024 1:36pmDecongestants may increase BP and HR and should be avoided. Continue Amlodipine without interruption I have instructed this patient to use Robitussin or Mucinex for cough, saline and Flonase NS for congestion and Tylenol for pain and fever. Continue antibiotics until all the medication has been taken. Report to the ER if develop any CP or SOB Future Tests Future scheduled test information is unavailable Pending Tests Pending diagnostic test information is unavailable Future Visits Future appointment information is unavailable Future Procedures Future procedure information is unavailable Future Medications Future medication information is unavailable Patient Instructions Patient instructions are unavailable
--- OUTSIDE RECORDS SUMMARY | 2025-02-24 07:39 | XMS_ITS | CCD ---
Author Organization [facility] CliniSysd Care Team Providers Care Application Counselor Name Role Phone Unavailable Primary Care [...] Care Provider Ball DO, Kar Attending Provider [phone] Ball DO, Kar Primary Care Provider Ball DO, Kar Attending Provider [phone] Allergies Allergy ClassificationReported Allergen(s)Allergy TypeDate of OnsetReaction(s) Facility (17 sources)Amoxicillin; Translations: [AMOXICILLIN]Drug Llpakbm08-87-2197 AnaphylaxisHarrison Community HospitalComment on above:Onset Date: 02/08/2016 (14 sources)NITROFURANTOIN, MACROCRYSTALS / Nitrofurantoin, Monohydrate; Translations: [NITROFURANTOIN MONOHYD/M-CRYST]Drug Hcbcjhm88-18-8727Etimbesgstv [facility] (20 sources)Sulfonamides (Antibiotic); Translations: [SULFA (SULFONAMIDE ANTIBIOTICS)]Drug Dbnpywp53-29-1900IkrsvnwywzdAhflrfrhi Clinic (1 source)AmoxicillinDrug Nuweirq09-77-3605Fii [facility] (2 sources)NitrofurantoinDrug Kpbqzwa57-03-5759Hmu [facility] (2 sources)Sulfonamides (Antibiotic)Drug allergy (disorder)44-34-4206Kdq [facility] (10 sources)Amoxicillin-Pot ClavulanateDrug wottuqx65-48-9257FobhgapSdscg Oxagen Other (13 sources)ClavulanateDrug Lfnhtne36-55-3973ZzyakzzCincinnati VA Medical CenterComment on above:Onset Date: 02/08/2016 (13 sources)NitrofurantoinDrug Isfitks65-69-7376Rpznsyvxeo [facility] Medications Current Medications MedicationDrug Class(es)DatesSig (Normalized)Sig (Original)acetaminophen 500 mg oral tablet (13 sources)Start: 35-05-7740ozecwukfnthj 250 mg oral tablet (2 sources)Macrolide AntimicrobialStart: 43-81-0456Inyotshwofnt 250 MG as directed Orally daily for 5 days Feb, Activebaclofen 10 mg oral tablet (20 sources)gamma-Aminobutyric Acid-ergic AgonistStart: 08-62-4274rmqo 1 tablet by mouth once daily at bedtimeComment on above:Take 10 mg by mouth daily at bedtime.calcium carbonate 1500 mg / cholecalciferol 200 unt oral tablet (13 sources)Vitamin DStart: 84-22-3890akjp 1 tablet by mouth twice dailydocusate sodium 50 mg / sennosides, fpc 8.6 mg oral tablet (3 sources)Start: 59-90-7706bffy 8.6-50 mg by mouth once daily in the evening as neededSenokot S 8.6-50 MG 1 tablet as needed Orally q evening for 30 days Nov, ActiveVit C,A-Zz-Nqnvh-Lutein-Zeaxan (Preservision Areds-2) 250-90-40-1 mg Capsule (13 sources)Start: 76-45-8090Sqmyg: 67-33-8113Hak C,Z-Nr-Ihsxz-Lutein-Zeaxan (Preservision Areds-2) 250-90-40-1 mg Capsule Active 1 TAB PO Twice daily August 27, 2021 12:00am Complies with drug therapyStart: 64-38-6695Fmb C,D-Gf-Grdni-Lutein-Zeaxan (Preservision Areds-2) 250-90-40-1 mg Capsule Active 1 TAB PO Twice daily August 26, 2021 11:00pmStart: 64-42-1723Xdz C,C-Yn-Nyrbc-Lutein-Zeaxan (Preservision Areds-2) 250-90-40-1 mg Capsule Active 1 TAB PO Twice daily August 27, 2021 12:08km974 ml zoledronic acid 0.05 mg/ml injection (16 sources)BisphosphonateStart: 59-70-9344kabt 5 mg intravenously once zoledronic acid (RECLAST) 5 mg/100 mL pgbk PREMIX piggyback Inject 5 mg intravenously every year. 0ActiveComment on above:Inject 5 mg intravenously every year. Completed/Discontinued Medications MedicationDrug Class(es)DatesSig (Normalized)Sig (Original)gabapentin 100 mg oral capsule (20 sources)Anti-epileptic AgentStart: 08-28-2023 End: 27-53-0614dnzq 2 capsules by mouth twice dailyGabapentin 100 mg capsule Discontinued 200 MG PO Twice daily 120 30 5 May 08, 2024 9:25am November 06, 2024 4:44pmStart: 08-28-2023 End: 64-73-3634wrwy 200 mg by mouth twice dailyGabapentin Active 200 MG PO Twice daily 360 90 November 13, 2023 1:52pmStart: 08-18-2023 End: 48-97-4347ycme 2 capsules by mouth twice dailyGabapentin 100 mg capsule Discontinued 0 .ROUTE .COMPLEX 360 2 August 18, 2023 1:08pm August 28, 2023 12:22pm TAKE 2 CAPSULES BY MOUTH TWICE A DAYStart: 07-19-2023 End: 79-09-9397stdk 2 capsules by mouth twice dailyGabapentin 100 mg capsule Discontinued 200 MG PO Twice daily 120 30 5 July 19, 2023 11:03am August 18, 2023 1:08pmStart: 07-19-2023 End: 21-22-9655jfnx 200 mg by mouth twice dailyGabapentin Discontinued 200 MG PO Twice daily 120 30 July 19, 2023 11:03am August 18, 2023 1:08pmStart: 14-37-3403swuc 2 capsules by mouth every twelve hoursGabapentin 100 MG 2 capsules Orally bid for 30 days Aug, ActiveStart: 08-27-2021 End: 25-10-5199trca 1 capsule by mouth twice dailyGabapentin 100 mg capsule Discontinued 100 MG PO Twice daily August 27, 2021 12:00am July 19, 2023 10:39am Comment on above:Take 200 mg by mouth twice daily.nabumetone 750 mg oral tablet (20 sources)Nonsteroidal Anti-inflammatory DrugStart: 08-27-2021 End: 95-63-8360snjh 1 tablet by mouth twice dailyNabumetone 750 mg tablet Discontinued 750 MG PO Twice daily 60 30 5 May 08, 2024 9:25am November 06, 2024 4:44pmomeprazole 40 mg delayed release oral capsule (16 sources)Proton Pump InhibitorStart: 08-27-2021 End: 74-49-6267zkjs 1 capsule by mouth twice dailyOmeprazole 40 [...] pain; Translations: [Left lower quadrant pain] Onset: 18-35-9615YpkbwtipDcdgh bronchitis (1 source)Acute bronchitis due to other specified organismsEpisodicAnxiety disorders (20 sources)Generalized anxiety disorder; Translations: [Generalized anxiety disorder]05-76-9294BwexikhBwzjery kidney disease (20 sources)Chronic kidney disease; Translations: [Chronic kidney disease, unspecified]84-60-5497ShudwlvYrzogmyokv associated with dizziness or vertigo (14 sources)Benign paroxysmal positional vertigo; Translations: [Benign paroxysmal vertigo, unspecified ear]Onset: 99-78-9677IvpcqiukCfjzkndvyg and other anemia (12 sources)Anemia; Translations: [Anemia, unspecified]41-88-2676Rjxjejfl Deficiency and other anemia (15 sources)Pernicious anemia; Translations: [Vitamin B12 deficiency anemia due to intrinsic factor deficiency]15-24-5772BpxybafeHjzazlcmqf and other anemia (4 sources)Vitamin B12 deficiency anemia due to intrinsic factor deficiency; Translations: [Pernicious anemia]03-77-0119DtmrzlucMhsmcyvynp disorders (20 sources)Gastroesophageal reflux disease; Translations: [Gastro-esophageal reflux disease without esophagitis]04-19-6056VmimlqaBhapsogcs hypertension (9 sources)Hypertensive disorder; Translations: [Essential (primary) hypertension]91-02-5344XzykamaMqpwecmfimxajo ulcer (except hemorrhage) (7 sources)Gastric ulcer; Translations: [Gastric ulcer, unspecified as acute or chronic, without hemorrhage orperforation]Onset: 98-40-9752CtnduldMtsdsxlq; including migraine (1 source)Headache; including migraine; Translations: [Headache, unspecified] Onset: 78-53-6470Drnpwrajoxbji and screening for infectious disease (7 sources)Vaccination given; Translations: [Encounter for immunization]Episodic Malaise and fatigue (8 sources)Other fatigue; Translations: [Fatigue]Onset: 04-37-7184Myedfvvo Menopausal disorders (7 sources)Menopause present; Translations: [Menopausal and female climacteric states]ChronicNonmalignant breast conditions (7 sources)Fibrocystic disease of breast; Translations: [Diffuse cystic mastopathy of unspecified breast]ChronicNutritional deficiencies (20 sources)Vitamin D deficiency, unspecified; Translations: [Vitamin D deficiency]Onset: 32-54-4284FkyvihbAfnnvxlaohycat (7 sources)Osteoarthritis; Translations: [Polyosteoarthritis, unspecified] ChronicOsteoporosis (20 sources)Age-related osteoporosis without current pathological fracture; Translations: [Primary osteoporosis]Onset: 40-23-0635TilaedmQbqjc acquired deformities (1 source)Scoliosis deformity of spine; Translations: [Scoliosis, unspecified] ChronicOther acquired deformities (6 sources)Scoliosis, unspecified; Translations: [Scoliosis of thoracolumbar spine, unspecified scoliosis type]Onset: 61-44-5685HmuuftjPgggc acquired deformities (1 source)Other forms of scoliosis, lumbar region; Translations: [OTHER FORMS SCOLIOSIS LUMBAR REGION]Onset: 88-01-9827SbucqbgGureo acquired deformities (20 sources)Acquired scoliosis; Translations: [Other secondary scoliosis, thoracic region]ChronicOther acquired deformities (3 sources)Other secondary scoliosis, lumbar regionChronicOther acquired deformities (3 sources)Other secondary scoliosis, thoracic regionChronicOther acquired deformities (3 sources)Acquired kyphoscoliosis; Translations: [Scoliosis, unspecified] ChronicOther acquired deformities (2 sources)Thoracogenic scoliosis, thoracolumbar region; Translations: [Thoracogenic scoliosis of thoracolumbar region]ChronicOther acquired deformities (20 sources)Other secondary scoliosis, site unspecified; 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]86-91-6196HzhbedgDwwlt aftercare (2 sources)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; 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]Onset: 76-81-5366JplccqkaSlwbs aftercare (6 sources)Long-term current use of drug therapy; Translations: [Other care home (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]EpisodicOther bone disease and musculoskeletal deformities (7 sources)Bone density finding; Translations: [Other specified disorders of bone density and structure, unspecified site]EpisodicOther circulatory disease (8 sources)Elevated blood-pressure reading without diagnosis of hypertension; Translations: [Elevated blood-pressure reading, without diagnosis of hypertension]37-23-2460IulxygwwFwjzw circulatory disease (4 sources)Elevated blood-pressure reading, without diagnosis of hypertension; Translations: [Elevated blood pressure reading without diagnosis of hypertension]59-19-8495CneyhtppZohdg connective tissue disease (4 sources)Muscle wasting and [...] torsion dystonia; 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] Onset: 01-61-0673RamluxmEvyeg hereditary and degenerative nervous system conditions (1 source)Dystonia, unspecified; Translations: [DYSTONIA UNSPECIFIED]Onset: 87-24-8993JyltqrqMesfb injuries and conditions due to external causes (7 sources)History of fall; Translations: [History of falling]EpisodicOther nervous system disorders (3 sources)Chronic pain; Translations: [Other chronic pain]ChronicOther nervous system disorders (3 sources)Carpal tunnel syndrome; Translations: [Carpal tunnel syndrome, bilateral upper limbs]98-60-8416PflpgcqYwunj nervous system disorders (3 sources)Carpal tunnel syndrome, bilateral upper limbs; Translations: [Carpal tunnel syndrome]06-94-9326TupseukJkpvm nervous system disorders (9 sources)Bilateral carpal tunnel syndrome; Translations: [Carpal tunnel syndrome, bilateral upper limbs]02-24-6316WhsunmgMyipw nervous system disorders (7 sources)Paresthesia; Translations: [Paresthesia of skin]EpisodicOther nutritional; endocrine; and metabolic disorders (6 sources)Abnormal weight loss; Translations: [Abnormal weight loss]Episodic Other nutritional; endocrine; and metabolic disorders (1 source)Abnormal weight loss; Translations: [Abnormal weight loss]Episodic Other screening for suspected conditions (not mental disorders or infectious disease) (19 sources)Patient encounter status; Translations: [Encounter for screening for osteoporosis]Onset: 47-15-3214OrtkaldzCmfzp upper respiratory disease (7 sources)Vasomotor rhinitis; Translations: [...] Translations: [Lumbago with sciatica, left side] Resolved: 42-76-7402QidemmugMxfwkpats-related disorders (10 sources)Tobacco user; Translations: [Nicotine dependence, cigarettes, in remission]ChronicUnclassified (3 sources)LOW BACK PAIN, UNSPECIFIED; Translations: [LOW BACK PAIN, UNSPECIFIED]Onset: 39-89-6837Jjcfohqxddnn (1 source)Unspecified tinnitus; Translations: [Unspecified tinnitus]Onset: 05-01-2017 Past or Other Problems Problem ClassificationProblemDateDocumented DateEpisodic/ChronicGenitourinary symptoms and ill-defined conditions (14 sources)Finding of frequency of urination; Translations: [Frequency of micturition]Onset: 09-67-5432QhtaotxdZbjmctks; including migraine (6 sources)Headache; Translations: [Headache, unspecified]Onset: 04-03-2015 EpisodicNoninfectious gastroenteritis (7 sources)Non-infective enteritis and colitis; Translations: [Noninfective gastroenteritis and colitis, unspecified]Onset: 32-98-8003WmzhmixcGvjoqysmefg chest pain (7 sources)Chest pain; Translations: [Chest pain, unspecified]Onset: 08-14-2013 EpisodicOther bone disease and musculoskeletal deformities (1 source)Other specified disorders of bone density and structure, other site; Translations: [OTH D/O BONE DEN STRUCT OTH SITE]Onset: 91-48-1929GrkgjtlxAajyh bone disease and musculoskeletal deformities (1 source)Other specified disorders of bone density and structure, left thigh; Translations: [OTH D/O BONE DEN STRUCT LT THIGH]Onset: 97-71-1140MgaysianTyugl bone disease and musculoskeletal deformities (1 source)Other specified disorders of bone density and structure, right thigh; Translations: [OTH D/O BONE DEN STRUCT RT THIGH]Onset: 01-23-2468LmufivxxEykca connective tissue disease (5 sources)Sarcopenia; Translations: [SARCOPENIA]Onset: 05-34-3306XziiimefRzksj connective tissue disease (1 source)Pain in left leg; Translations: [PAIN IN LEFT LEG]Onset: 12-26-2021 EpisodicOther connective tissue disease (1 source)Disorder of muscle, unspecified; Translations: [DISORDER OF MUSCLE UNSPECIFIED]Onset: 15-93-7884FmljtovjIdujn connective tissue disease (4 sources)Other muscle spasm; Translations: [OTHER MUSCLE SPASM]Onset: 77-25-4435UianohriJivtp ear and sense organ disorders (6 sources)Tinnitus; Translations: [Unspecified tinnitus]Onset: 05-01-2017 EpisodicOther upper respiratory infections (20 sources)Acute maxillary sinusitis; Translations: [Acute recurrent maxillary sinusitis]Onset: 47-26-7324IdggsnbpKvhfabeh codes; unclassified (1 source)Family history of malignant neoplasm of breast; Translations: [FAMILY HX MALIG NEOPLASM OF BREAST]Onset: 52-55-2897NlnzejdnNnzycxeq codes; unclassified (1 source)Asymptomatic menopausal state; Translations: [ASYMPTOMATIC MENOPAUSAL STATE]Onset: 30-21-2838XsaislsaOrezeqj and strains (7 sources)Strain of muscle and tendon of back wall of thorax, subsequent encounter; Translations: [Strain of muscle and tendon of back wall of thorax, subsequent encounter]Onset: 69-36-6260TxcbofhaKaqyatzqlzew (1 source)LOW BACK PAIN, UNSPECIFIED; Translations: [LOW BACK PAIN, UNSPECIFIED] Onset: 51-45-7540Yjlknqbzopia (1 source)Acute cough R05.1 Results Test NameValueInterpretationReference RangeFacilityBasophils Auto (Bld) [#/Vol] Ordered By: Kar Mota on 73-05-3760Xneqcserm (Bld) [#/Vol]0.0 10 3/uL0.0-0.1 [facility] HospitalBasophils/100 WBC Auto (Bld)Ordered By: Kar Mota on 30-79-2158Dihjfqtry/100 WBC (Bld)0.5 %0.2-2.0[facility] HospitalEosinophils/100 WBC Auto (Bld)Ordered By: Kar Mota on 99-26-0807Dfndlewjmpo/100 WBC (Bld)1.5 %0.9-7.0[facility] Erythrocyte distribution width Auto (RBC) [Ratio]Ordered By: Kar Mota on 29-33-9979Jdgrjofiryk distribution width (RBC) [Ratio]13.9 %11.0-15.0[facility] HospitalGlobulin Calc (S) [Mass/Vol]Ordered By: Kar Mota on 88-06-1890Pujucngi (S) [Mass/Vol]4.0 g/dLBellevue Hospital Glomerular filtration rate (GFR) estimation in non- AmericanOrdered By: Kar Mota on 48-77-4733ACA/1.73 sq M.predicted among non-blacks MDRD (S/P/Bld) [Vol rate/Area]45 mL/min/{1.73_m2}Low>=60 mL/min/1.73m 2FOhioHealth Berger HospitalHematocrit Auto (Bld) [Volume fraction]Ordered By: Kar Mota on 83-35-3837Uccwmdslxd (Bld) [Volume fraction]35.0 %Low36.0-48.0 [facility] HospitalHemoglobin [Mass/volume] in BloodOrdered By: Kar Mota on 98-52-6207Zojoklyfbc (Bld) [Mass/Vol]11.8 g/dLLow12.0-16.0 [facility] HospitalLaboratory - Chemistry and Chemistry - challengeOrdered By: Kar Mota on 84-82-3574Cdobhpw [Mass/Vol]3.7 g/dL 3.4-5.0[facility] HospitalALP [Catalytic activity/Vol]68 U/L46-116 [facility] HospitalALT [Catalytic activity/Vol]21 U/L14-59 [facility] HospitalAST [Catalytic activity/Vol]20 U/L15-37 [facility] HospitalBilirubin [Mass/Vol]0.6 mg/dL0.2-1.0[facility] HospitalCalcium [Mass/Vol]9.6 mg/dL8.5-10.1FOhioHealth Berger HospitalChloride [Moles/Vol]105 mmol/M43-230HirlotieuBellevue HospitalCO2 [Moles/Vol]27.7 mmol/L21.0-32.0[facility] Creatinine [Mass/Vol]1.18 mg/dLHigh0.55-1.02[facility] GFR/1.73 sq M.predicted MDRD (S/P/Bld) [Vol rate/Area]54 mL/min/{1.73_m2}Low>=60 mL/min/1.73m 2FOhioHealth Berger HospitalGlucose [Mass/Vol]104 mg/hI49-084 [facility] HospitalPotassium [Moles/Vol]3.9 mmol/L3.5-5.1FOhioHealth Berger HospitalProtein [Mass/Vol]7.7 g/dL6.4-8.2FTrinity Health Systemodium [Moles/Vol]142 mmol/M058-799PwgwvueklBellevue HospitalUrea nitrogen [Mass/Vol]22.0 mg/dLHigh7.0-18.0[facility] HospitalUrea nitrogen/Creatinine [Mass ratio]18.6 mg/mgBellevue HospitalLaboratory - Hematology and Cell countsOrdered By: Kar Mota on 19-43-4528Hntbqhyc granulocytes/100 WBC (Bld)0.3 %0.0-0.5FOhioHealth Berger HospitalLeukocytes [#/volume] corrected for nucleated erythrocytes in Blood by Automated counOrdered By: aKr Mota on 47-61-0280XVM corrected for nucl RBC Auto (Bld) [#/Vol]6.6 10 3/uL4.0-11.0[facility] Lymphocytes Auto (Bld) [#/Vol]Ordered By: Kar Mota on 65-87-8026Xuuhnuozipc (Bld) [#/Vol]1.9 10 3/uL1.2-3.8[facility] HospitalLymphocytes/100 WBC Auto (Bld)Ordered By: Kar Mota on 78-23-9300Mazzadlqidt/100 WBC (Bld) 28.5 %20.5-60.0[facility] Auto (RBC) [Entitic mass] Ordered By: Kar Mota on 94-80-7245WEG (RBC) [Entitic mass]31.6 pg26.7-34.0 [facility] HospitalMCHC Auto (RBC) [Mass/Vol]Ordered By: Kar Mota on 88-49-8913IOKA (RBC) [Mass/Vol]33.7 g/dL29.9-35.2FOhioHealth Berger HospitalMCV Auto (RBC) [Entitic vol]Ordered By: Kar Mota on 04-37-9669GOO (RBC) [Entitic vol]93.6 fL81.0-99.0[facility] HospitalMicroalbumin [Mass/volume] in UrineOrdered By: Kar Mota on 10-15-2024 Albumin DL <= 20 mg/L (U) [Mass/Vol]3.4 mg/dL<=30.0[facility] HospitalMonocytes Auto (Bld) [#/Vol]Ordered By: Kar Mota on 10-15-2024 Monocytes (Bld) [#/Vol]0.5 10 3/uL0.3-0.8[facility] Monocytes/100 WBC Auto (Bld)Ordered By: Kar Mota on 85-10-9577Ujhbeaugo/100 WBC (Bld)8.2 %1.7-12.0[facility] HospitalNeutrophils Auto (Bld) [#/Vol]Ordered By: Kar Mota on 11-56-8933Ypmktajslza (Bld) [#/Vol]4.0 10 3/uL1.4-6.5FOhioHealth Berger HospitalNeutrophils/100 WBC Auto (Bld) Ordered By: Kar Mota on 51-95-7107Xmqulvkupzf/100 WBC (Bld)61.0 %43.0-75.0 [facility] HospitalNo Panel InformationOrdered By: Kar Mota on 537174-Xnoqfvo Vitamin D Total67.2 ng/mLBellevue HospitalComment on above:<20 ng/mL Vit D fkdkukcev15-<30 ng/mL Vit D phokvbwtebun27-395 ng/mL Vit D sufficient>100 ng/mL Potential Toxicity Eosinophils # (Auto)0.1 10 3/uL0.0-0.7FOhioHealth Berger HospitalImmature Granulocyte # (Auto)0.02 10 3/uL0.00-0.03[facility] HospitalUrine Random Grrivktapn071.08 mg/dL20.00-300.00[facility] Platelet mean volume Auto (Bld) [Entitic vol]Ordered By: Kar Mota on 32-74-9224Iuueudhw mean volume (Bld) [Entitic vol]8.9 fLLow9.5-13.5FOhioHealth Berger HospitalPlatelets Auto (Bld) [#/Vol]Ordered By: Kar Mota on 16-66-8579Kgjvmyezw (Bld) [#/Vol]310 10 3/aL725-718GozbchvyzBellevue HospitalRBC Auto (Bld) [#/Vol]Ordered By: Kar Mota on 91-63-2845QLH (Bld) [#/Vol]3.74 10 6/uLLow4.20-5.40[facility] Hospitalerum or plasma albumin/globulin mass ratioOrdered By: Kar Mota on 10-15-2024 Albumin/Globulin [Mass ratio]0.9 {ratio}[facility] Hospitalerum or plasma anion gap determinationOrdered By: Kar Mota on 91-99-1755Uthfp gap [Moles/Vol]13.2 mmol/LFOhioHealth Berger HospitalUrine microalbumin/creatinine mass ratioOrdered By: Kar Mota on 10-15-2024 Albumin/Creatinine DL <= 20 mg/L (U) [Mass ratio]19.9 mg/g0.0-29.9[facility] HospitalComment on above:NO MICROALBUMINURIA 0-29 MG/GCLINICAL MICROALBUMINURIA 30-300 MG/GMACROALBUMINURIA >300 MG/GBasophils Auto (Bld) [#/Vol]on 26-93-7345Dvqsogyfg (Bld) [#/Vol]Automated basophil count0.0-0.1 [facility] HospitalBasophils/100 WBC Auto (Bld)on 05-03-2024 Basophils/100 WBC (Bld)Automated basophil %0.2-2.0[facility] HospitalEosinophils/100 WBC Auto (Bld)on 25-66-1052Nmuyblhwgmw/100 WBC (Bld) Automated eosinophil %0.9-7.0[facility] HospitalErythrocyte distribution width Auto (RBC) [Ratio]on 31-79-7460Slfwpgarosi distribution width (RBC) [Ratio]Erythrocyte distribution width [Ratio] by Automated count11.0-15.0 [facility] HospitalHematocrit Auto (Bld) [Volume fraction]on 09-17-2294Aqathcohxy (Bld) [Volume fraction]Hematocrit [Volume Fraction] of Blood by Automated hncbdPbq21.0-48.0[facility] HospitalHemoglobin [Mass/volume] in Bloodon 82-91-4162Xeavntvcek (Bld) [Mass/Vol]Hemoglobin [Mass/volume] in YttujIgk47.0-16.0[facility] HospitalLaboratory - Hematology and Cell countson 83-73-0117Fvmeiemt granulocytes/100 WBC (Bld)0.4 % 0.0-0.5FOhioHealth Berger HospitalLeukocytes [#/volume] corrected for nucleated erythrocytes in Blood by Automated counon 56-45-9728BEJ corrected for nucl RBC Auto (Bld) [#/Vol]Leukocytes [#/volume] corrected for nucleated erythrocytes in Blood by Automated coun4.0-11.0[facility] Lymphocytes Auto (Bld) [#/Vol]on 86-11-0724Mqulkmdzthd (Bld) [#/Vol]Lymphocytes [#/volume] in Blood by Automated count1.2-3.8[facility] Lymphocytes/100 WBC Auto (Bld)on 69-85-6207Iohegzhfnuc/100 WBC (Bld) Lymphocytes/100 leukocytes in Blood by Automated count20.5-60.0[facility] HospitalMCH Auto (RBC) [Entitic mass]on 41-38-3883SHY (RBC) [Entitic mass]MCH [Entitic mass] by Automated count26.7-34.0[facility] HospitalMCHC Auto (RBC) [Mass/Vol]on 80-90-9921WKLA (RBC) [Mass/Vol]MCHC [Mass/volume] by Automated count29.9-35.2FOhioHealth Berger HospitalMCV Auto (RBC) [Entitic vol]on 78-88-7664UDC (RBC) [Entitic vol]MCV [Entitic volume] by Automated count81.0-99.0[facility] HospitalMonocytes Auto (Bld) [#/Vol]on 28-50-0411Wsseiconx (Bld) [#/Vol]Automated blood monocyte count0.3-0.8 [facility] HospitalMonocytes/100 WBC Auto (Bld)on 05-03-2024 Monocytes/100 WBC (Bld)Automated monocyte %1.7-12.0[facility] HospitalNeutrophils Auto (Bld) [#/Vol]on 00-03-0449Lqfanelmqsl (Bld) [#/Vol] Neutrophils [#/volume] in Blood by Automated count1.4-6.5FOhioHealth Berger HospitalNeutrophils/100 WBC Auto (Bld)on 75-15-0684Uccmssvlbww/100 WBC (Bld)Automated neutrophil %43.0-75.0[facility] HospitalNo Panel Informationon 22-53-3721Ktchmflpyhg # (Auto)0.2 10 3/uL0.0-0.7FOhioHealth Berger HospitalImmature Granulocyte # (Auto)0.02 10 3/uL0.00-0.03[facility] HospitalPlatelet mean volume Auto (Bld) [Entitic vol]on 26-84-6029Iquswrtv mean volume (Bld) [Entitic vol]Platelet mean volume [Entitic volume] in Blood by Automated countLow9.5-13.5FOhioHealth Berger Hospital Platelets Auto (Bld) [#/Vol]on 18-71-7108Cwuzmjvin (Bld) [#/Vol]Platelets [#/volume] in Blood by Automated -315UbutewgkdBellevue Hospital RBC Auto (Bld) [#/Vol]on 58-24-1462FDZ (Bld) [#/Vol]Erythrocytes [#/volume] in Blood by Automated countLow4.20-5.40[facility] HospitalBasophils Auto (Bld) [#/Vol]on 05-77-5309Tfkdiwtnr (Bld) [#/Vol]Automated basophil count 0.0-0.1FOhioHealth Berger HospitalBasophils/100 WBC Auto (Bld)on 73-97-9974Xadwpqjkm/100 WBC (Bld)Automated basophil %0.2-2.0[facility] HospitalEosinophils/100 WBC Auto (Bld)on 44-53-2464Wtxhbqgmydq/100 WBC (Bld)Automated eosinophil %0.9-7.0[facility] HospitalErythrocyte distribution width Auto (RBC) [Ratio]on 51-82-0844Znqtxjfnels distribution width (RBC) [Ratio]Erythrocyte distribution width [Ratio] by Automated count11.0-15.0 [facility] HospitalEstimated glomerular filtration rate (GFR) non- Americanon 11-73-5957JTY/1.73 sq M.predicted among non-blacks MDRD (S/P/Bld) [Vol rate/Area]Estimated glomerular filtration rate (GFR) non- AmericanLow>=60 mL/min/1.73m 2FOhioHealth Berger HospitalHematocrit Auto (Bld) [Volume fraction]on 53-31-3881Jxdyprlggy (Bld) [Volume fraction]Hematocrit [Volume Fraction] of Blood by Automated flrcvLdx06.0-48.0[facility] HospitalHemoglobin [Mass/volume] in Bloodon 73-31-3821Nsluatrxtm (Bld) [Mass/Vol]Hemoglobin [Mass/volume] in BbollOcy89.0-16.0[facility] HospitalIron binding capacity [Mass/volume] in Serum or Plasmaon 05-11-8670Qfdo binding capacity [Mass/Vol]Iron binding capacity [Mass/volume] in Serum or Mstatk887.0-450.0[facility] HospitalIron saturation [Mass Fraction] in Serum or Plasmaon 64-21-5731Fcrh saturation [Mass fraction] Iron saturation [Mass Fraction] in Serum or PlasmaBellevue HospitalLaboratory - Chemistry and Chemistry - challengeon 67-02-4871Qrqbjdi [Mass/Vol]9.8 mg/dL8.5-10.1FOhioHealth Berger HospitalChloride [Moles/Vol] 107 mmol/G73-776IxkxmkppaBellevue HospitalCO2 [Moles/Vol]31.1 mmol/L 21.0-32.0[facility]vue HospitalCobalamin (Vitamin B12) [Mass/Vol]250 pg/wG112-1596ZpvaexmjaBellevue HospitalComment on above:Performed at: - [facility] [address] [id number] Director: Primo Richard PhD, Phone: [phone] [Mass/Vol]1.25 mg/dLHigh0.55-1.02 [facility] HospitalFerritin [Mass/Vol]28.0 ng/mL8.0-252.0[facility]vue HospitalGFR/1.73 sq M.predicted MDRD (S/P/Bld) [Vol rate/Area]51 mL/min/{1.73_m2}Low>=60 mL/min/1.73m 2FOhioHealth Berger HospitalGlucose [Mass/Vol]87 mg/dP50-950IfjdwjpyfBellevue HospitalIron [Mass/Vol]122.0 ug/dL50.0-170.0[facility] HospitalPotassium [Moles/Vol]4.1 mmol/L 3.5-5.1FTrinity Health Systemodium [Moles/Vol]147 mmol/HYlfj362-184 [facility] HospitalUrea nitrogen [Mass/Vol]20.0 mg/dLHigh7.0-18.0 [facility] HospitalUrea nitrogen/Creatinine [Mass ratio]16.0 mg/mg [facility] HospitalLaboratory - Hematology and Cell countson 95-59-0584Fhmmlwht granulocytes/100 WBC (Bld)0.2 %0.0-0.5FOhioHealth Berger HospitalLeukocytes [#/volume] corrected for nucleated erythrocytes in Blood by Automated counon 38-44-7520GQY corrected for nucl RBC Auto (Bld) [#/Vol]Leukocytes [#/volume] corrected for nucleated erythrocytes in Blood by Automated coun4.0-11.0[facility]vue HospitalLymphocytes Auto (Bld) [#/Vol]on 15-29-0293Tnmmpvusztw (Bld) [#/Vol]Lymphocytes [#/volume] in Blood by Automated count1.2-3.8B[facility]vue HospitalLymphocytes/100 WBC Auto (Bld)on 95-41-6191Xibmfnyuucs/100 WBC (Bld)Lymphocytes/100 leukocytes in Blood by Automated count20.5-60.0[facility] HospitalH Auto (RBC) [Entitic mass]on 17-75-0063TEU (RBC) [Entitic mass]MCH [Entitic mass] by Automated count26.7-34.0[facility] HospitalHC Auto (RBC) [Mass/Vol]on 01-35-0539CMZH (RBC) [Mass/Vol]MCHC [Mass/volume] by Automated count29.9-35.2FMartins Ferry HospitalV Auto (RBC) [Entitic vol]on 76-67-9760WUQ (RBC) [Entitic vol]MCV [Entitic volume] by Automated count 81.0-99.0[facility]vue HospitalMonocytes Auto (Bld) [#/Vol]on 40-31-1091Jygenyxlj (Bld) [#/Vol]Automated blood monocyte count0.3-0.8B[facility]vue HospitalMonocytes/100 WBC Auto (Bld)on 48-54-7845Secbbwmnj/100 WBC (Bld)Automated monocyte %1.7-12.0[facility] Neutrophils Auto (Bld) [#/Vol]on 10-14-7370Rvsykroluqk (Bld) [#/Vol]Neutrophils [#/volume] in Blood by Automated count1.4-6.5FOhioHealth Berger Hospital Neutrophils/100 WBC Auto (Bld)on 92-41-2285Rridspamvun/100 WBC (Bld)Automated neutrophil %43.0-75.0[facility] HospitalNo Panel Informationon 01-58-8016Hwjrgbwxsli # (Auto)0.1 10 3/uL0.0-0.7FOhioHealth Berger HospitalFolate21.20 ng/mL8.60-58.90Bellevue HospitalImmature Granulocyte # (Auto)0.01 10 3/uL0.00-0.03[facility] Platelet mean volume Auto (Bld) [Entitic vol]on 08-15-0168Llgibhbx mean volume (Bld) [Entitic vol]Platelet mean volume [Entitic volume] in Blood by Automated countLow9.5-13.5FOhioHealth Berger HospitalPlatelets Auto (Bld) [#/Vol]on 45-55-3536Yndohchzq (Bld) [#/Vol]Platelets [#/volume] in Blood by Automated armgb026-387EzjiaembkBellevue HospitalRBC Auto (Bld) [#/Vol]on 02-09-2024 RBC (Bld) [#/Vol]Erythrocytes [#/volume] in Blood by Automated countLow4.20-5.40 [facility] Hospitalerum or plasma anion gap determinationon 73-40-6906Hgjbz gap [Moles/Vol]Serum or plasma anion gap determinationBellevue HospitalEstimated glomerular filtration rate (GFR) non- Americanon 28-01-1936SXN/1.73 sq M.predicted among non-blacks MDRD (S/P/Bld) [Vol rate/Area]Estimated glomerular filtration rate (GFR) non- Low>=60 mL/min/1.73m 2FOhioHealth Berger HospitalLaboratory - Chemistry and Chemistry - challengeon 87-72-5655Schotat [Mass/Vol]9.7 mg/dL8.5-10.1 [facility] HospitalChloride [Moles/Vol]106 mmol/C63-652TunvzzdxaBellevue HospitalCO2 [Moles/Vol]29.9 mmol/L21.0-32.0[facility] HospitalCreatinine [Mass/Vol]1.26 mg/dLHigh0.55-1.02B[facility] HospitalGFR/1.73 sq M.predicted MDRD (S/P/Bld) [Vol rate/Area]50 mL/min/{1.73_m2}Low>=60 mL/min/1.73m [address] [place], [place] [address]Glucose [Mass/Vol]91 mg/tI65-778YgwaocccnBellevue HospitalPotassium [Moles/Vol] 3.7 mmol/L3.5-5.1FTrinity Health Systemodium [Moles/Vol]143 mmol/L 136-145B[facility] HospitalUrea nitrogen [Mass/Vol]21.0 mg/dLHigh 7.0-18.0[facility] HospitalUrea nitrogen/Creatinine [Mass ratio] 16.7 mg/mgBellevue HospitalNo Panel Informationon 70-25-147612- Hydroxy Vitamin D Total68.1 ng/mLBellevue HospitalComment on above:<20 ng/mL Vit D rybypmhhr17-<30 ng/mL Vit D mcqtdfpdhhit94-265 ng/mL Vit D sufficient>100 ng/mL Potential ToxicitySerum or plasma anion gap determinationon 97-18-2750Sqrji gap [Moles/Vol]Serum or plasma anion gap determinationBellevue HospitalCBC AUTO DIFFon 56-23-5212CSSF #0.0 103/ulNormal0.0-0.1 [facility]ville HospitalComment on above:Performed By: #### CBC ####[facility] Rxlgruchbj000[address] [place], [place] [address]Dr.Yilan Madison Basophils/100 WBC (Bld)0.7 %Normal0.2-2.0The [facility] HospitalComment on above: Performed By: #### CBC ####[facility] Oqkwssikvb84[address] [place], [place] [address]Dr.Yilan ChangEO #0.1 103/ulNormal0.0-0.7The [facility] HospitalComment on above:Performed By: #### CBC ####[facility] Mnfuwoxfeg136[address] [place], [place] [address]Dr.Yilan ChangEosinophils/100 WBC (Bld)1.5 %Normal0.9-7.0The [facility] HospitalComment on above:Performed By: #### CBC ####[facility] Dppcsjwpgi474[address] [place], [place] [address]Dr.Yilan ChangErythrocyte distribution width (RBC) [Ratio]13.2 %Normal 11.0-15.0The [facility] HospitalComment on above:Performed By: #### CBC ####[facility] Kcdjgdbmcz32[address] [place], [place] [address]Dr. Yilan ChangHematocrit (Bld) [Volume fraction]34.1 %Critically low36.0-48.0The [facility] HospitalComment on above:Performed By: #### CBC ####[facility] Svkkqdqapj448[address] [place], [place] [address]Dr.Yilan ChangHemoglobin (Bld) [Mass/Vol]11.7 g/dLCritically low12.0-16.0The [facility] HospitalComment on above:Performed By: #### CBC ####[facility] Sewxlcfart647[address] [place], [place] [address]Dr.Yilan ChangIG #0.02 10e3/ulNormal0.00-0.03The [facility] HospitalComment on above:Performed By: #### CBC ####[facility] Jypfvsfmoz9038[address] [place], [place] [address]Dr.Yilan ChangIG %0.4 %Normal 0.0-0.5The [facility] HospitalComment on above:Performed By: #### CBC ####[facility] Ydjofawoor27[address] [place], [place] [address]DrAryanVirginiasunita MadisonSOVAH HEALTH [facility]IL[facility] #1.2 103/ulNormal1.2-3.8The [facility] HospitalComment on above:Performed By: #### CBC ####[facility] Yaloevdftp9[address] [place], [place] [address]DrAryanTanner LosMontefiore New Rochelle Hospitalhocytes/100 WBC (Bld)25.6 %Ovuqjh08.5-60.0The [facility] HospitalComment on above:Performed By: #### CBC ####[facility] Pqlagfapgb475[address] [place], [place] [address]DrAzeem MadisonMARY [facility]UTAN [facility] DIFF REQ NONormalThe [facility] HospitalComment on above:Performed By: #### CBC ####[facility] Pntoofzonh899[address] [place], [place] [address]DrAryan MadisonCATHOLIC HEALTH (RBC) [Entitic mass]30.9 dqJwpqmc18.7-34.0[facility] Comment on above:Performed By: #### CBC ####[facility] Odyzjasrah457[address] [place], [place] [address]DrAryanVirginiasunita MadisonELLIS IS[facility] (RBC) [Mass/Vol]34.3 g/dL Hsdwcn91.9-35.2The [facility] HospitalComment on above:Performed By: #### CBC ####[facility] Zmgptxlrkc040[address] [place], [place] [address]DrAryan Virginiasunita MadisonST. MARY[facility] (RBC) [Entitic vol]90.0 lMEkbnxq73.0-99.0[facility] Comment on above:Performed By: #### CBC ####[facility] Knvgicbeui250[address] [place], [place] [address]DrAzeem MadisonPIKE COUNTY [facility] #0.4 103/ulNormal0.3-0.8 The [facility] HospitalComment on above:Performed By: #### CBC ####[facility] Edzgftabjr437[address] [place], [place] [address]DrAzeem Madison Monocytes/100 WBC (Bld)7.6 %Normal1.7-12.0The [facility] HospitalComment on above: Performed By: #### CBC ####[facility] [address] [address]Dr.Tanner MadisonNEUT #3.0 103/ulNormal1.4-6.5The [facility] HospitalComment on above:Performed By: #### CBC ####[facility] [address] [address]Dr.Tanner MadisonNeutrophils/100 WBC (Bld)64.2 %Rayenn01.0-75.0The [facility] HospitalComment on above:Performed By: #### CBC ####[facility] Ejawktuhzr8[address] [place], [place] [address]Dr.Tanner MadisonPlatelet mean volume (Bld) [Entitic vol]8.5 fLCritically low 9.5-13.5The [facility] HospitalComment on above:Performed By: #### CBC ####[facility] Bxczpxgtee[address] [place], [place] [address]Dr. Tanner MadisonPLT269 103/ovLsvxml337-038Uiu [facility] HospitalComment on above: Performed By: #### CBC ####[facility] Gldtnclilk9[address] [place], [place] [address]Dr.Tanner MadisonRBC3.79 106/ulCritically low4.20-5.40The [facility] HospitalComment on above:Performed By: #### CBC ####[facility] Qybrbxlpbb0817[address] [place], [place] [address]Dr.Tanner MadisonWBC4.6 103/ul Normal4.0-11.0The [facility] HospitalComment on above:Performed By: #### CBC ####[facility] Sgfxnnlifg88[address] [place], [place] [address]Dr. Tanner ChangMG MAMM SCREEN 3D VIJAYA CADon 54-19-5891NA MAMM SCREEN 3D VIJAYA CAD Patient: KIMBERLY WHITE Exam Date: 03/08/2022 : 1950 Gender:F Ordering : DR KAR MOTA D.O. Admission #: [id number] Family : Order #: [id number] CLICK HERE TO VIEW EXAM RADIOLOGY REPORT [...] breast cancer at age 48. LOCATION: [facility] BREAST COMPOSITION: Extremely dense, which lowers [...] by: Jeff Fregoso MD on 03/08/2022 at 12:18[facility] HospitalPROF CHEM 8 (BAS METB)on 15-98-9022Fhlwz gap [Moles/Vol]11.0 mmol/LNormalWvumedicine Barnesville HospitalComment on above:Performed By: #### TSH, BMP #### [facility] [address] [address] [address] Tanner MadisonCalcium [Mass/Vol]9.5 mg/dLNormal8.5-10.1[facility] Comment on above:Performed By: #### TSH, BMP #### [facility] [address] [address] [address] Tanner MadisonChloride [Moles/Vol]103 mmol/THllbnr22-929NvhWvumedicine Barnesville Hospital Comment on above:Performed By: #### TSH, BMP #### [facility] [address] [address] [address] Tanner MadisonCO2 [Moles/Vol]30.1 mmol/ZMvgdgj53.0-32.0[facility] Comment on above:Performed By: #### TSH, BMP #### [facility] [address] [address] [address] Tanner MadisonCreatinine [Mass/Vol]0.98 mg/dLNormal0.55-1.02The [facility] HospitalComment on above:Performed By: #### TSH, BMP #### [facility] [address] [address] [address] Tanner MosqueraGFR-AF WALLISIAN>60Normal>=60The [facility] HospitalComment on above:Performed By: #### TSH, BMP #### [facility] [address] [address] [address] Tanner MosqueraGFR-NON AF LPPVDGOE02 mL/min/1.94o5Uxawwlcxtr low>=60The [facility] HospitalComment on above:Performed By: #### TSH, BMP #### [facility] [address] [address] [address] Tanner MadisonGlucose [Mass/Vol]91 mg/oYLtlber93-380UbmWvumedicine Barnesville Hospital Comment on above:Performed By: #### TSH, BMP #### [facility] [address] [address] [address] Tanner MadisonPotassium [Moles/Vol]4.1 mmol/LNormal3.5-5.1[facility] Comment on above:Performed By: #### TSH, BMP #### [facility] [address] [address] [address] Tanner MadisonSodium [Moles/Vol]140 mmol/STkxjyl359-652Oym [facility] Comment on above:Performed By: #### TSH, BMP #### [facility] [address] [address] [address] Tanner MadisonUrea nitrogen [Mass/Vol]14.0 mg/dLNormal7.0-18.0The [facility] HospitalComment on above:Performed By: #### TSH, BMP #### [facility] [address] [address] [address] Tanner MadisonUrea nitrogen/Creatinine [Mass ratio]14.3 mg/mgNormalThe Montville HospitalComment on above:Performed By: #### TSH, BMP #### [facility] [address] [address] [address] Tanner Chirinos 53-68-7800GHI0.659 uIU/mLNormal0.358-3.740[facility]ville HospitalComment on above:Performed By: #### TSH, BMP #### [facility] [address] [address] [address] Tanner MadisonVITAMIN D 25 OHon 49-75-8126QEY D 25-OH63.4 ng/mLNormalThe [facility] HospitalComment on above:Performed By: #### VITAD ####[facility] [address] [address]Dr. Tanner MadisonVIT D RANGES SEE BELOWCommunity Memorial HospitalComment on above:Result Comment: <20 ng/mL Vit D deficient 20 - <30 ng/mL Vit D insufficient 30 - 100 ng/mL Vit D sufficient >100 ng/mL Potential ToxicityPerformed By: #### VITAD ####[facility] [address] [address]Dr. Tanner MadisonXR DEXA BONE DENSITYon 12-53-5287AZ DEXA BONE DENSITYEXAMINATION: XR DEXA BONE DENSITY, [...] Electronically authenticated by: MARTA ELIAS Date: 2022-03-08 10:52[facility] HospitalCNPNon 40-95-0601YLHYBnqaonsgq (NIQ) LEKIMBERLY Stephanie ([id number]) 1950 F Date Time Provider Department 11/16/21 [...] (None) Encounter Status:Closed by RAYSA RICO on 11/23/21[facility] LSPINE WO CONon 42-72-1143FNU LSPINE WO CONEXAMINATION: MRI LSPINE WO CON [...] Electronically authenticated by: MARTA ELIAS Date: 2021-11-04 06:[address] [place] [address] WO CONon 51-17-6412GAB TSPINE WO CONEXAMINATION: [facility] H[facility]ORY: Scoliosis deformity of spine [...] authenticated by: JEFF FREGOSO Date: 2021-11-03 19:07NormalThe [facility] HospitalVIT D 25-OH LABCORPon 32-40-2260Qzxerbn D, 25-Mhcupto53.8 ng/mL Fhtsze84.0-100.0[facility] HospitalComment on above:Result Comment: Vitamin D deficiency has been defined by the [place] and an Endocrine Society practice guideline as a level of serum 25-OH vitamin D less than 20 ng/mL (1,2). The Endocrine Society went on to further define vitamin D insufficiency as a level between 21 and 29 ng/mL (2). 1. IOM ([place]). 2010. Dietary reference intakes for calcium and D. [place]: The National Academies Press. 2. Mikal MF, Jayy LEMOS, Zi MACHADO, et al. Evaluation, treatment, and prevention of vitamin D deficiency: an Endocrine Society clinical practice guideline. JCEM. 2010; 96(7):1911-30.Performed By: #### VITADLC #### [facility] [address] [place] [address] Dr. Tanner Harvey AUTO DIFFon 74-63-8168CXOC #0.0 103/ulNormal0.0-0.1[facility] HospitalComment on above:Performed By: #### CBC #### [facility] [address] [address] [address] Tanner MadisonBasophils/100 WBC (Bld)0.6 %Normal0.2-2.0[facility] Comment on above:Performed By: #### CBC #### [facility] [address] [address] [address] Tanner Resendez #0.1 103/ulNormal0.0-0.7The [facility] HospitalComment on above: Performed By: #### CBC #### [facility] [address] [address] [address] Tanner Mosqueraosinophils/100 WBC (Bld)1.1 %Normal0.9-7.0[facility] Comment on above:Performed By: #### CBC #### [facility] [address] [place] [address] Dr. Tanner Mosquerarythrocyte distribution width (RBC) [Ratio]13.5 %Oskrev61.0-15.0 The [facility] HospitalComment on above:Performed By: #### CBC #### [facility] [address] [place] [address] Dr. Tanner MadisonHematocrit (Bld) [Volume fraction]31.7 %Critically low36.0-48.0 The [facility] HospitalComment on above:Performed By: #### CBC #### [facility] [address] [place] [address] Dr. Tanner MadisonHemoglobin (Bld) [Mass/Vol]10.8 g/dLCritically low12.0-16.0The [facility] Hospitalment on above:Performed By: #### CBC #### [facility] [address] [place] [address] Dr. Tanner Clark #0.01 10e3/ulNormal0.00-0.03[facility] on above:Performed By: #### CBC #### [facility] [address] [place] [address] Dr. Tanner Clark %0.2 %Normal0.0-0.5[facility] on above: Performed By: #### CBC #### [facility] [address] [place] [address] Dr. Tanner CordobaH #1.3 103/ulNormal1.2-3.8The [facility] HospitalComment on above:Performed By: #### CBC #### [facility] [address] [place] [address] Dr. Tanner Connorsmphocytes/100 WBC (Bld)24.0 %Ddhozv20.5-60.0[facility] on above:Performed By: #### CBC #### [facility] [address] [place] [address] Dr. Tanner BrightUAL DIFF REQNONormalThe [facility] HospitalComment on above: Performed By: #### CBC #### [facility] [address] [address] [address] Tanner Aguilar (RBC) [Entitic mass]31.0 orFhvfsf67.7-34.0The [facility] HospitalComment on above:Performed By: #### CBC #### [facility] [address] [address] [address] Tanner Aguilar (RBC) [Mass/Vol]34.1 g/uVCnuqmn17.9-35.2The [facility] HospitalComment on above:Performed By: #### CBC #### [facility] [address] [place] [address] Dr. Tanner Aguilar (RBC) [Entitic vol]91.1 eVIfcaif37.0-99.0The [facility] HospitalComment on above:Performed By: #### CBC #### [facility] [address] [place] [address] Dr. Tanner Barrios #0.5 103/ulNormal0.3-0.8The [facility] HospitalComment on above:Performed By: #### CBC #### [facility] [address] [address] [address] Tanner Rameshocytes/100 WBC (Bld)8.3 %Normal1.7-12.0[facility] Comment on above:Performed By: #### CBC #### [facility] [address] [place] [address] Dr. Tanner Phillips #3.6 103/ulNormal1.4-6.5The [facility] HospitalComment on above:Performed By: #### CBC #### [facility] [address] [place] [address] Dr. Tanner Espinozautrophils/100 WBC (Bld)65.8 %Sqcfow64.0-75.0The [facility] HospitalComment on above:Performed By: #### CBC #### [facility] [address] [place] [address] Dr. Tanner Juarezlet mean volume (Bld) [Entitic vol]8.6 fLCritically low 9.5-13.5The [facility] HospitalComment on above:Performed By: #### CBC #### [facility] [address] [address] [address] Tanner MadisonPLT234 103/svGuglse474-068Uin [facility]ville HospitalComment on above: Performed By: #### CBC #### [facility] [address] [address] [address] Tanner MadisonRBC3.48 106/ulCritically low4.20-5.40The [facility] HospitalComment on above:Performed By: #### CBC #### [facility] [address] [address] [address] Tanner MadisonWBC5.4 103/ulNormal4.0-11.0The [facility] HospitalComment on above: Performed By: #### CBC #### [facility] [address] [address] [address] Tanner MadisonPROF CHEM 8 (BAS METB)on 23-22-1447Wmbpu gap [Moles/Vol]12.7 mmol/LNormalThe [facility] HospitalComment on above:Performed By: #### BMP ####[facility] Dxxphlifac63[address] [place], [place] [address]DrAryan Hart ChangCalcium [Mass/Vol]9.2 mg/dLNormal8.5-10.1The [facility] HospitalComment on above:Performed By: #### BMP ####[facility] Kthrkcsouo[address] [place], [place] [address]DrAzeem ChangChloride [Moles/Vol]102 mmol/LNormal 98-107The [facility] HospitalComment on above:Performed By: #### BMP ####[facility] Sykrnbxhhs[address] [place], [place] [address]DrAzeem ChangCO2 [Moles/Vol]30.4 mmol/UHcbwzx71.0-32.0The [facility] HospitalComment on above: Performed By: #### BMP ####[facility] Erkmrpheyt40[address] [place], [place] [address]DrAzeem ChangCreatinine [Mass/Vol]1.07 mg/dL Critically high0.55-1.02The [facility] HospitalComment on above:Performed By: #### BMP ####[facility] Bipglzecad[address] [place], [place] [address]Dr.Yilan ChangEGFR-AF WALLISIAN>60Normal>=60The [facility] HospitalComment on above:Performed By: #### BMP ####[facility] Nociknzrbr[address] [place], [place] [address]Dr.Yilan ChangEGFR-NON AF EHXGGTZM34 mL/min/1.73m2 Critically low>=60The [facility] HospitalComment on above:Performed By: #### BMP ####[facility] N[address]vgjqrrn[address] [place], [place] [address]Dr. Tanner ChangGlucose [Mass/Vol]99 mg/jBJgkeym44-812Aiz [facility] HospitalComment on above:Performed By: #### BMP ####[facility] [address]xxvuqtp[address] [place], [place] [address]Dr.Tanner ChangPotassium [Moles/Vol]4.1 mmol/LNormal 3.5-5.1The [facility] HospitalComment on above:Performed By: #### BMP ####[facility] Grqbwbtobc[address] [place], [place] [address]Dr.Tanner Madison Sodium [Moles/Vol]141 mmol/ALblcxz543-058Jux [facility] HospitalComment on above: Performed By: #### BMP ####[facility] [address]vr[address]ukj[address] [place], [place] [address]Dr.Yilan ChangUrea nitrogen [Mass/Vol]16.0 mg/dLNormal 7.0-18.0The [facility] HospitalComment on above:Performed By: #### BMP ####[facility] [address]hgtwghd[address] [place], [place] [address]Dr. Virginialan ChangUrea nitrogen/Creatinine [Mass ratio]15.0 mg/mgNormalThe [facility] HospitalComment on above:Performed By: #### BMP ####[facility] Zsod[address]wz[address] [place], [place] [address]Dr.Tanner MadisonCNOVon 23-38-9851MITJIqrjom Visit (SPRIMN) KIMBERLY WHITE ([id number]) 1950 F Date Time Provider Department 10/15/21 2:00 PM ANCELMO SANDOVAL [facility] During your visit today, we recorded [...] such a short period (more content not included)...NormalThe [facility] HospitalXR SCOLIOSIS 2V PA STAND/LATon 39-96-0380DZ SCOLIOSIS 2V PA STAND/LAT* * *Final Report* [...] abnormality. IMPRESSION: Thoracolumbar scoliosis and degenerative changes. International Marketing Intern: BLANE Transcribe Date/Time: Oct 15 2021 2:52P Dictated by : CHETNA HERNANDEZ MD This examination was interpreted and the report reviewed and electronically signed by: CHETNA HERNANDEZ MD on Oct 15 2021 2:54PM EST [id number] [facility] HospitalXR SCOLIOSIS PA STAND/LAT 2Von 32-69-0926Isprfwwbo [facility] 08-27-2021L Specimen: [id number] Received: 08/27/21 Status: VINOD Norristevin Num: [id number] Spec Type: Surgical Subm Dr: Will Ma MD Tissues: A Gastric Biopsy (GASTRIC BXS) Procedures: HE Stain/2, Gross/Micro L4 Patient Age/Sex Location Account Attending Physician Kimberly White 70/F [id number] Will Ma MD SPEC NUM: [id number] RECD: 08/27/21 STATUS: VINOD NORRISTevin NUM: [id number] JHONNY: 08/27/21- DR: Will Ma MD ENTERED: [...] microscopic findings support the above pathologic diagnosis. [id number] Specimen: [id number] Received: 08/27/21 Status: VINOD Norristevin Num: [id number] Spec Type: Surgical Subm Dr: Will Ma MD Tissues: A Gastric Biopsy (GASTRIC BXS) Procedures: HE Stain/2, Gross/Micro L4 Patient: Kimberly White [id number] (Continued) Signed (signature on file) Nisreen Marquez MD 08/31/21 2229 NormalBellevue HospitalCOVID-19 [facility]on 11-22-5275QJAK-CoV-2 (COVID-19) RNA JEFFRY+probe Ql (Unsp spec)NegativeNormalNegativeBellevue HospitalComment on above:Order Comment: Healthcare Worker?: NResult Comment: Testing for SARS-CoV-2 by RT-PCR This test was developed and its performance characteristics determined by [employer]) and validated at [facility]. This test has not been FDA [...] is terminated or revoked sooner. PERFORMED BY: [facility] [address] [place] [address] PATHOLOGIST COMMERCIAL LEASE ADMINISTRATOR NISREEN MARQUEZ M.D.Performed By: #### COVID 19 [facility] #### [address] Street Vital Signs Date TimeVital SignValuePerforming ArwwjqcxuNeblbfyf74-32-8517 09:23-0400Body .02 cmBenjamin Ball DO Work Phone: [facility]07-21-2025 09:23-0400 Body mass index (BMI) [Ratio]19 kg/m0Tydhndcb Ball DO Work Phone: [facility]07-21-2025 09:23-0400 Body .7 kgBenjamin Ball DO Work Phone: [facility]07-21-2025 09:23-0400 Diastolic blood laioiymo68 mm[Hg]Kar Ball DO Work Phone: [facility]07-21-2025 09:23-0400 Heart rate71 /minBenjamin Ball DO Work Phone: [facility]07-21-2025 09:23-0400 Respiratory rate12 /minBenjamin Ball DO Work Phone: [facility]07-21-2025 09:23-0400 Systolic blood qqhlkubx428 mm[Hg]Kar Ball DO Work Phone: [facility]03-12-2025 08:59-0400 Body atpyip918.02 cmB[facility]03-12-2025 08:59-0400Body mass index (BMI) [Ratio]20.2 kg/k9FhxdexwdcBellevue Hospital03-12-2025 08:59-0400Body .93 kgB[facility]03-12-2025 08:59-0400Diastolic blood mm[Hg][facility] 05-08-2024 08:59-0400Heart rate70 /[facility] 05-08-2024 08:59-0400Respiratory rate12 /[facility] 05-08-2024 08:59-0400Systolic blood suoajzfp268 mm[Hg][facility]06-06-2024 10:08-0400Body cmdjoe624.02 cmB[facility]06-06-2024 10:08-0400Body mass index (BMI) [Ratio]19.7 kg/p3HtbpvklukBellevue Hospital06-06-2024 10:08-0400Body .57 kgB[facility]06-06-2024 10:08-0400Diastolic blood pexmubvl03 mm[Hg] [facility]06-06-2024 10:08-0400Heart rate70 /[facility]06-06-2024 10:08-0400Respiratory rate12 /[facility]06-06-2024 10:08-0400Systolic blood mm[Hg] [facility]07-31-2023 10:30-0400Body uyhojg508.02 cm Kar Ball Other [employer] Other 07-31-2023 10:30-0400Body mass index (BMI) [Ratio] 19.31 kg/l3Rqakwgqm Ball Other [employer] Other 07-31-2023 10:30-0400Body auddxz61.44 kgBenjamin Ball Other [employer] Other 07-31-2023 10:30-0400Diastolic blood irlhlgyo76 mm[Hg] Kar Ball Other [employer] Other 07-31-2023 10:30-0400Respiratory rate12 /minBenjamin Ball Other [employer] Other 07-31-2023 10:30-0400Systolic blood sxtcjxes456 mm[Hg] Kar Ball Other [employer] Other 276972-30-8432 10:22-0500Body cmJose A Hong MD Work Phone: [facility]12-06-2022 10:22-0500Body xyuqkv71.9 kgJose A Hong MD Work Phone: [facility]12-06-2022 10:22-0500Diastolic blood kupzzmgv73 mm[Hg]Jose A Hong MD Work Phone: [facility]12-06-2022 10:22-0500Heart rate71 /min Jose A Hong MD Work Phone: [facility]12-06-2022 10:22-0500Respiratory rate 14 /minDjoseph Hong MD Work Phone: [facility]12-06-2022 10:22-4213DgO9% (BldA) [Mass fraction]98 %Jose A Hong MD Work Phone: [facility]12-06-2022 10:0500Systolic blood mm[Hg]Jose A Hong MD Work Phone: [facility] Encounters Encounter DateEncounter TypeCare ProviderFacilityStart: 12-18-2024 End: 63-10-9309rsszjxfnziRhzsxbed Ball DO Work Phone: [facility]Start: 12-18[facility]2024 End: 72-25-1261Hrdztgo encounter procedureBenjamin Ball DO-[facility] Work Phone: Start: 11-18-2024 End: 94-75-2549twayxjxfctRtxqwqsn Ball DO Work Phone: [facility] Work Phone: Start: 11-18-2024 End: 38-41-4640Qqivjax encounter procedureBenjamin Ball DO-[facility] Work Phone: Start: 11-06-2024 End: 57-39-2113ioxklbexutSktmuyqn Ball DO Work Phone: [facility] Work Phone: Start: 11-06-2024 End: 02-74-5027Godvygb encounter procedureBenjamin Ball DO-[facility] Work Phone: Start: 10-17-2024 End: 41-76-9855tljkucirlaKdaechyt Ball DO Work Phone: [facility] Work Phone: Start: 10-17-2024 End: 53-27-7052Cxncibs encounter procedureBenfei Mota DO-[facility] Work Phone: Start: 74-33-6721Cqu-patient / Non-visitBenfei Mota DO-[facility] Work Phone: Start: 09-30-2024 End: 51-56-1697gcedoavvenHppgmyqCorey Matthews MDFacility:KELLY Barillas Start: 09-16-2024 End: 48-43-6559zhsbhtsjczHrnueydn Ball DO Work Phone: [facility] Work Phone: Start: 09-16-2024 End: 63-16-1511Nmqyhhr encounter procedureBenfei Mota DO-[facility] Work Phone: Start: 08-12-2024 End: 85-91-5273Ouwsgdx encounter procedureBenfei Mota DO-[facility] Work Phone: Start: 07-11-2024 End: 81-97-7004hyvxfmceqqYvrmpoenpHarrison Community Hospital Work Phone: Start: 07-11-2024 End: 14-81-9566Mdxamfi encounter procedureFirthors Physician Group-[facility] Work Phone: Start: 06-07-2024 End: 20-58-9965dmdudbymdkEraozybxxHarrison [facility] Hospital Work Phone: Start: 06-07-2024 End: 28-22-7661Rlrchow encounter procedureFirelands Physician Group-[facility] Work Phone: Start: 05-08-2024 End: 62-25-4474irmvkhxvciRmxkxtukbHarrison Community Hospital Work Phone: Start: 05-08-2024 End: 47-53-0129Ejrwssa encounter procedureFirelands Physician Group-[facility] Work Phone: Start: 57-09-8096Mqa-patient / Non-visitFirelands Physician Group-[facility] Work Phone: Start: 04-08-2024 End: 41-49-9287aznxhqgqmsBgfiofqzsHarrison [facility] Hospital Work Phone: Start: 04-08-2024 End: 98-17-2235Pbkorxg encounter procedureFirelands Physician Group-[facility] Work Phone: Start: 03-07-2024 End: 96-15-6952ezpvgbzzxuOnlncujeyHarrison [facility] Hospital Work Phone: Start: 03-07-2024 End: 04-90-7118Bgsbaua encounter procedureFirelands Physician Group-[facility] Work Phone: Start: 02-29-2024 End: 19-82-8228bosphmmjkiHsdjscnweHarrison Community Hospital Work Phone: Start: 02-29-2024 End: 90-07-0542Avaomty encounter procedureFirelands Physician Group-[facility] Work Phone: Start: 02-22-2024 End: 79-30-9792Esgozsf encounter procedureFirelands Physician Group-[facility] Work Phone: Start: 02-19-2024 End: 36-86-1865ilpmlnnagdUlkwmem Vytautas Giedraitis MDFacility:PM Eran Start: 02-15-2024 End: 12-13-3388Rbspibw encounter procedureFirelands Physician Group-[facility] Work Phone: Start: 62-01-8259Rma-patient / Non-visitFirelands Physician Group-[facility] Work Phone: Start: 66-41-0118Kju-patient / Non-visitFirelands Physician Group-[facility] Work Phone: Start: 11-16-2023 End: 22-64-8932ocmcjwduqdMuhhbwftlHarrison [facility] Hospital Work Phone: Start: 11-16-2023 End: 33-95-6321Auzvvlw [facility] Work Phone: Start: 08-03-2023 End: 66-50-0984kzonjldwimWopqqksqnHarrison [facility] Hospital Work Phone: Start: 08-03-2023 End: 28-84-7263Tveycph encounter procedureKind[facility] Work Phone: Start: 05-11-4380Kef-patient / Non-visitFiraugusta health [facility] Work Phone: Start: 03-27-2023 End: 30-03-7607jargmpcebuUpunktgs Ball Other [employer] Other Start: 01-03-6783Mnicgc outpatient visit 15 minutes Kar BallFPG [facility] ClinicStart: 60-49-2468Ysqgzdxih encounterBenjamin BallFP[facility] ClinicStart: 01-23-2023 End: 14-38-2792oqymjszmexJtazzvuy Ball Other [employer] Other Start: 68-09-8479Eawymxvsq encounterBenjamin BallFPG [facility] ClinicStart: 11-29-2022 End: 55-66-9835sypimyrtcjOhbgbzsu Ball Other [employer] Other Start: 36-42-2590Qaniqtozd encounterBenjamin BallFPG [facility] ClinicStart: 11-28-2022 End: 77-50-5401mmjaltulfrWrzasjau Ball Other [employer] Other Start: 66-57-0270Nioivov evaluation of patient and reportKar Mota [facility] ClinicStart: 55-55-8127Iuzmmymqi encounter Kar Mota [facility]vertart: 10-04-2022 End: 87-28-7101ncyewdwgsxQubuscnh Ball Other no[employer] Other Start: 88-09-4979Iojhyudhd encounterBeilsa Mota [facility] ClinicStart: 09-26-2022 End: 03-65-6327nwhqxhwqeqKbihtakv Ball Other [employer] Other Start: 14-88-4051Bsmugb outpatient visit 15 minutes Kar Mota [facility]art: 13-83-8358nvcibgandyUN MARCIA E BRAUN Facility:P2Vewng: 05-02-2022 End: 57-13-2299binxpdcflcRM MARCIA E BRAUNFacility:I5Xpebh: 03-08-2022 End: 82-73-3992nsexqupswvKO MARCIA E BRAUNFacility:H0Xdvon: 03-02-2022 End: 73-40-8583uovcwvcmjqOY MARCIA E BRAUNFacility:R1Vkdqh: 20-88-0212Llsum health examinationKar Mota Other [employer] Other Start: 02-01-2022 End: 06-00-0538knzfkjvcbyFGKERPM BONUSFacility:[facility]tart: 02-01-2022 End: 50-75-0058Xxkiiwc encounter Darrell Hong MD Work Phone: Spomf InstituteComment on above:Encounter for screening for osteoporosis (Primary Dx)Start: 01-18-2022 End: 28-05-5702otesorfgotBA MARCIA E BRAUNFacility:P6Hvvwb: 12-21-2021 End: 11-24-1299gwgouoerswJM MARCIA E BRAUNFacility:A2Ivsug: 11-30-2021 End: 12-02-0477eiotepbrcmGJ [facility] .Facility:G0Plbka: 11-23-2021 End: 88-68-3947nnjzlzbvhvZW [facility] .Facility:X9Lakry: 76-91-4836Gbziofzcl encounterCarjean carlos ELLISONC Work Phone: NeurologyComment on above:ResultsStart: 11-11-2021 End: 53-74-9797bjkrjostqyNH KAR BALLFacility:Y7Gydlw: 11-03-2021 End: 26-39-9842krtafbjxmvSF KAR BALLFacility:Y4Lkmrq: 10-28-2021 End: 36-22-3139bzziukjycaHX KAR BALLFacility:K6Vatgs: 10-15-2021 End: 47-38-4144sqocfrcnaaGWMDHBJ BONUSFacility:[facility]tart: 10-15-2021 End: 76-21-2468Xavdyehqmu hospital visit by physicianXr Main Ti5UplelcqtsYwpxnov on above:Scoliosis of thoracolumbar spine, unspecified scoliosis type [M41.9] Procedures DateProcedureProcedure DetailPerforming ClinicianStart: 11-53-1385YR dexa axial skeletonBenjamin Ball DO Work Phone: Start: 61-68-1994GT screening mammo BI w/CADBenjamin Ball DO Work Phone: Start: 13-74-9627Rxkdb entir thrc lmbr crv sac spi w/skull 2/3 vwCarissa Manasa PA-C Work Phone: Start: 44-16-9942Pwdvnvknw for malignant neoplasm of colonBenjamin Ball Other Depression screeningBenjamin Ball Other Screening for malignant neoplasm of breastBenjamin Ball Other Plan of Treatment DateCare ActivityDetailAuthorStart: 48-02-6016WRTMKEX DIRECTIVE DISCUSSION ADVANCE DIRECTIVE DISCUSSIONOhioHealth Doctors Hospitaltart: 89-60-6287GSQJRTJNRS ASSESSMENTDEPRESSION ASSESSMENTOhioHealth Doctors Hospitaltart: 75-80-8484Fcwojysku vaccinationINFLUENZA (#1)[facility] Hospitalt[facility]: 36-89-4234BSPWS-19 VACCINE (5 - Booster for Pfizer series)COVID-19 VACCINE (5 - Booster for Pfizer series) [facility]: 28-23-1307PMWFYTV DIRECTIVE DISCUSSIONADVANCE DIRECTIVE DISCUSSIONOhioHealth Doctors Hospitaltart: 43-92-4576ULEVARQHRP ASSESSMENTDEPRESSION ASSESSMENTOhioHealth Doctors Hospitaltart: 84-34-3509AJCG DENSITYBONE DENSITYOhioHealth Doctors Hospitaltart: 97-16-4988NHUIDWGSISJY: 65+ (1 - PCV)PNEUMOCOCCAL: 65+ (1 - PCV) [facility]: 07-61-0051GTYVESGV VACCINE (1 of 2)SHINGRIX VACCINE (1 of 2)[facility]: 57-50-7153VNBPCBTQY (FIT-DNA)COLOGUARD (FIT-DNA) [facility]: 05-46-8149FcaurxgofwzGMBWGVTAXQFMezzqfwkz ClinicStart: 88-18-8539ZJGBBGDPEC CANCER SCREENINGCOLORECTAL CANCER SCREENINGH[facility] Community Hospital Start: 91-13-8683XJ COLONOGRAPHYCT COLONOGRAPHYOhioHealth Doctors Hospitaltart: 1995 DIABETES SCREENDIABETES SCREENOhioHealth Doctors Hospitaltart: 05-91-8432TXHNL OCCULT BLOODFECAL OCCULT BLOODOhioHealth Doctors Hospitaltart: 45-89-9352KEHTQ SCREENLIPID SCREEN [facility]: 43-80-0946SSBFFOEISPRMEKZOUNSZZFJPJXOklnulqqq Clinic Start: 18-83-8310CmimlotadigGBALRQWIAKsccbnlou ClinicStart: 88-70-8728Cypbk microalbumin profileDTAP,TDAP,TD (1 - Tdap)[facility]: 1968 HEPATITIS C SCREENINGHEPATITIS C SCREENINGOhioHealth Doctors Hospitaltart: 46-75-2518Ijqmc depression screening assessmentDEPRESSION SCREENINGH[facility] Hospital Comprehensive metabolic 2000 panel - Serum or PlasmaBellevue HospitalComprehensive metabolic 2000 panel - Serum or PlasmaBellevue HospitalDXA Skeletal system.axial Views for bone densityBellevue Hospital End: 58-98-9481GQD-AXIAL SKELETONDXA-AXIAL SKELETON Radiology Routine Encounter for screening for osteoporosis 1 Occurrences starting 02/01/2022 until 03/03/2023[facility] Work Phone: Comment on above:1 Occurrences starting 02/01/2022 until 03/03/2023[facility] [place] Immunizations Immunization DateImmunizationNotesCare MrivznmoSvkisgfx38-21-5325drjqufvgu, high dose seasonal, preservative-freeBenjamin Ball DO Work Phone: [facility]09-19-2024influenza, high dose seasonal, preservative-freeB[facility] Hospital09-19-2024 influenza, live, intranasal, quadrivalentB[facility] 40-18-2061brliyvsvo virus vaccine, unspecified formulationB[facility] Hospital10-02-2023influenza, high dose seasonal, preservative-freeBenjamin Ball Other [employer] Other 09-643760-76-5232kjwmfetpb virus vaccine, split virus (incl. purified surface antigen)Kar Mota Other [employer] Other 09-244318-55-6454ndnhvcprn virus vaccine, unspecified formulationB[facility]04-03-2022COVID-19 Vaccine Pfizer - Documentation Purposes OnlyBendougmin Lashae Other [facility]10-08-2021influenza virus vaccine, split virus (incl. purified surface antigen)Kar Mota Other [employer] Other 10011123-68-3712mxqztkfrv virus vaccine, unspecified formulationB[facility]09-26-2021COVID-19 Vaccine Pfizer - Documentation Purposes OnlyBenjamin Ball Other [facility]02-20-2021COVID-19 Vaccine Pfizer - Documentation Purposes OnlyBendougmin Ball Other [facility]01-30-2021COVID-19 mRNA, Comirnaty (Pfizer)[facility]01-30-2021COVID-19 Vaccine Moderna - Documentation Purposes OnlyKar Mota Other [facility]09-10-2020influenza virus vaccine, split virus (incl. purified surface antigen)Kar Mota Other [employer] Other 09-382771-85-2038mqdhxnsns virus vaccine, unspecified formulationB[facility] Hospital09-30-2019influenza virus vaccine, split virus (incl. purified surface antigen)Kar Mota Other [employer] Other 09361922-74-8152outrsblce virus vaccine, unspecified formulationB[facility] Hospital10-11-2018influenza virus vaccine, split virus (incl. purified surface antigen)Kar Mota Other [employer] Other 10180288-42-0522gezxjafcu virus vaccine, unspecified formulationB[facility] Hospital10-23-2017influenza virus vaccine, split virus (incl. purified surface antigen)Kar Mota Other [employer] Other 10-702194-45-0579hefestohm virus vaccine, unspecified formulationB[facility] Hospital10-04-2016influenza virus vaccine, split virus (incl. purified surface antigen)Kar Mota Other [employer] Other 10614140-37-9813pglkpglzz virus vaccine, unspecified formulationB[facility] Hospital03-18-2016pneumococcal conjugate vaccine, 13 valentKar Mota Other [facility]10-14-2015influenza virus vaccine, split virus (incl. purified surface antigen)Kar Mota Other [employer] Other 245234-04-9443snldnnyac virus vaccine, unspecified formulationB[facility] Hospital10-22-2014tetanus and diphtheria toxoids, adsorbed, preservative free, for adult use (5 Lf of tetanus toxoid and 2 Lf of diphtheria toxoid)Kar Mota Other [facility]09-16-2014 pneumococcal polysaccharide vaccine, 23 valentKar Mota Other [facility]10-21-2013tetanus and diphtheria toxoids, adsorbed, preservative free, for adult use (5 Lf of tetanus toxoid and 2 Lf of diphtheria toxoid)Kar Mota Other [facility] Payers DatePayer CategoryPayerPolicy [id number] Health [id number] MedicareHUMANA MEDICARE HUMANA MEDICARE PPO [id number] 2017-Present [phone] [place] [address] PPO [id number] [id number] 1949 [id number] 2.0.1.523884.3.57[id number] 2..1.797358.3.57[id number] 2.840.1.540911.3.57[id number] 2.840.1.941201.3.57[id number] 2.840.1.311125.3.57[id number] 2.840.1.954618.3.57[id number] 2.16.840.1.710547.3.57[id number] 2.16.840.1.069034.3.57[id number] 2.16.840.1.245974.3.57[id number] 2.16.840.1.208418.3.57[id number] 2.16.840.1.706545.3.57[id number] 2.16.840.1.932631.3.57[id number] 2.16.840.1.867031.3.579.2.196Self-paySelf Pay [id number] Social History DateTypeDetailFacilityStart: 08-27-2021 End: 86-88-7598Ockisex smoking status NHISEx-smokerHarrison Community HospitalHistory of tobacco useCurrent smokerHarrison Community HospitalHistory of tobacco useCigarette Smoker [facility]: 47-98-2431Wfqigqc use and exposureSmokeless tobacco non-userOhioHealth Doctors Hospitaltart: 10-15-2021 End: 52-97-5877Wuoncei intakeLifetime non-drinker (finding)[facility] Start: 70-77-8974Bqs Assigned At BirthNot on fileOhioHealth Doctors Hospitaltart: 10-05-2021 End: 45-09-8363Gllpikdt to SARS-CoV-2 (event)Not sureDowelltown ClinicSex Assigned At BirthSex Assigned At [facility] [employer] Other Start: 73-78-6899Kpq Assigned At BirthFeTrinity Health Systemtart: 02-29-2024 End: 25-04-2987NhgCaocag (finding)[facility] Clinical Notes 10-15-2021 to 09-16-2024 Note Date & KewtGdqaZactqtfb74-73-1249 Evaluation note* Diagnosis Onset Date Resolution Status Admit Date Carpal tunnel syndrome on both sides acuteJuly 2024 8:54amChronic kidney diseaseacuteJuly 2024 8:54amGAD (generalized anxiety disorder)acuteJuly 2024 8:54amGERD (gastroesophageal reflux disease)acuteJuly 2024 8:54amHypertensionacuteJuly 2024 8:54am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acuteJuly 2024 8:54am OsteoporosisacuteJuly 2024 8:54amPernicious anemiaacuteJuly 2024 8:54amMedicare annual wellness visit, subsequentnon2024 8:54am Screening mammogram for breast cancernon2024 8:54am [facility] Work Phone: 1(842) 888-362603-12-2025 Evaluation note* Diagnosis Onset Date Resolution Status Admit Date Carpal tunnel syndrome on both sides acuteMarch 2024 8:54amChronic kidney diseaseacuteMarch 2024 8:54am Elevated BP without diagnosis of hypertensionacuteMarch 2024 8:54amGAD (generalized anxiety disorder)acuteMarch 2024 8:54amGERD (gastroesophageal reflux disease)acuteMarch 2024 8:54am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acuteMarch 2024 8:54amPernicious anemiaacuteMarch 2024 8:54am [facility] Work Phone: 1(479) 268-684903-12-2025 Evaluation note* Diagnosis Onset Date Resolution Status Admit Date Carpal tunnel syndrome on both sides acuteMarch 2024 8:54amChronic kidney diseaseacuteMarch 2024 8:54am Elevated BP without diagnosis of hypertensionacuteMarch 2024 8:54amGAD (generalized anxiety disorder)acuteMarch 2024 8:54amGERD (gastroesophageal reflux disease)acuteMarch 2024 8:54am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acuteMarch 2024 8:54amPernicious anemiaacuteMarch 2024 8:54amPernicious anemiaacuteApril 2024 8:51am [facility] Work Phone: 1(688) 685-422401-29-2024 Evaluation note* Encounter Date Diagnosis Assessment Notes [...] increased frequency > 3/24 hours and watery [facility] Other 11-27-2023 Evaluation note* Encounter Date Diagnosis Assessment Notes Treatment Notes Treatment Clinical Notes Dec, Pain in thoracic spine (ICD-10 - M54.6) [facility] Other 10-02-2023 Evaluation note* Encounter Date Diagnosis Assessment Notes Treatment Notes Treatment Clinical Notes Nov, Lumbar spondylosis (ICD-10 - M47 .816) [facility] Other 07-31-2023 Evaluation note* Encounter Date Diagnosis [...] but may cause increased bloating. [employer] Other 07-31-2023 Evaluation note* Encounter Date Diagnosis [...] but may cause increased bloating. [employer] Other 12-06-2022 NoteHNO ID: [id number] Author: Jose A Hong MD Service: ? [...] obtained and documented by the physician assistant to the president. I examined the patient and evaluated all [...] when sitting. No partha (more content not included)...[facility]12-06-2022 Instructions* Patient Instructions* Ancelmo Sandoval PA-C [...] your usual activities immediately. documented in this encounterHarrison [facility] Hospital12-06-2022 History of Present illness Narrative* Jose [...] obtained and documented by the physician assistant to the president. I examined the patient and evaluated all [...] Past Histories independently gathered by the clinical work station support specialist and the remaining scribed note accurately describes my personal service to the patient. Jose A Hong MD documented in this encounterHarrison Community Hospital11-22-2022 NoteCONSULTATION CONSULTATION DATE: 01/18/2022 CHIEF COMPLAINT: [...] appointment to see a [facility] at [facility] in the near future. PHYSICAL EXAM: [...] We shall await the patient's evaluation with [facility]. Subsequent to that, we will make [...] this in February, given her 's illness.[facility] HospitalScbuvjem27-11-4441 Note CONSULTATION PROCEDURE DATE: 12/21/2021 CHIEF COMPLAINT: [...] has responded well to this treatment. [facility] HospitalLphilpyv14-95-0570 NoteCONSULTATION CONSULTATION DATE: 11/30/2021 CHIEF COMPLAINT: Low [...] patient has been seen by [facility] with regards to the possibility of surgical [...] to maintain the communication with [facility] to see whether other options are available. We will repeat the testosterone cypionate on her return visit. The patient understands and would like to proceed. CC: Kathrine Marcial M.D.[facility] HospitalPyqagihe00-22-2613 NoteCONSULTATION PROCEDURE DATE: 11/23/2021 PREOPERATIVE DIAGNOSIS: Lumbar [...] try to attain a neutral posture laterally.[facility] HospitalJmnhgwml64-68-3334 NoteCONSULTATION CONSULTATION DATE: 11/23/2021 CHIEF COMPLAINT: Left leg pain, low back pain. HISTORY OF PRESENT ILLNESS: This is a very pleasant, 71-year-old female who is known to the [facility]. The patient has an MRI of her lumbar spine, CT of the thoracic and CT of the lumbar spine. The patient has severe rotoscoliosis. The patient was seen at the [facility]. The patient states she is functioning well; [...] like to proceed. CC: Kathrine Marcial M.D.[facility] HospitalWylzteaj58-61-9300 Miscellaneous Notes* Telephone Encounter - Cesilia Adler - 11/16/2021 1:46 PM EDT Received the following record(s) via fax. -MRI tspine wo(report) Date 11/03/21 Record(s) scanned into pt's chart. Cesilia Adler Images requested documented in this encounterHarrison Community Hospital09-07-2022 NotePROCEDURE: CT TSPINE WO CON, CT [...] Electronically authenticated by: JEFF FREGOSO Date: 2021-11-03 18:57[facility]09-07-2022 NotePROCEDURE: CT TSPINE WO CON, CT [...] Electronically authenticated by: JEFF FREGOSO Date: 2021-11-03 18:57[facility]08-19-2022 NoteHNO ID: [id number] Author: Ancelmo Sandoval PA-C Service: ? Author Type: Physician Roll Forming Machine Operator Type: Progress Notes Filed: 10/18/2021 8:52 AM [...] neuromuscular referral to (more content not included)... [facility]* Diagnosis Scoliosis of thoracolumbar spine, unspecified scoliosis type documented in this encounter [facility] HospitalEvalumiddletown emergency [facility] note* Diagnosis Encounter for screening for osteoporosis- Primary Special screening for osteoporosis documented [facility] noteNo InformationNort [employer] Other Evaluation note* Diagnosis Onset Date Resolution Status Chronic kidney disease acuteElevated BP without diagnosis of hypertensionacuteGAD (generalized anxiety disorder)acuteGERD (gastroesophageal reflux disease)acute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acuteMedicare annual wellness visit, subsequentnoneactive Screening mammogram for breast cancernoneactive [facility] Work Phone: Evaluation noteNo assessment information available [facility] Work Phone: Evaluation note* Diagnosis Onset Date Resolution Status Admit Date Carpal tunnel syndrome on both sides acuteMarch 2024 8:54amChronic kidney diseaseacuteMarch 2024 8:54am Elevated BP without diagnosis of hypertensionacuteMarch 2024 8:54amGAD (generalized anxiety disorder)acuteMarch 2024 8:54amGERD (gastroesophageal reflux disease)acuteMarch 2024 8:54am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acuteMarch 2024 8:54amPernicious anemiaacuteMarch 2024 8:54am [facility] Work Phone: Evaluation note* Diagnosis Onset Date Resolution Status Admit Date Carpal tunnel syndrome on both sides acuteJuly 2024 8:54amChronic kidney diseaseacuteJuly 2024 8:54amGAD (generalized anxiety disorder)acuteJuly 2024 8:54amGERD (gastroesophageal reflux disease)acuteJuly 2024 8:54amHypertensionacuteJuly 2024 8:54am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acuteJuly 2024 8:54am OsteoporosisacuteJuly 2024 8:54amPernicious anemiaacuteJuly 2024 8:54amMedicare annual wellness visit, subsequentnoneactiveJuly 2024 8:54am Screening mammogram for breast cancernoneactiveJuly 2024 8:54am [facility] Work Phone: History general Narrative - Reported* Type Description Date Medical History Anemia, unspecified type Medical HistoryIrritable bowel syndrome with constipationMedical HistoryLumbar spondylosisMedical HistoryOsteopenia of right hipMedical HistoryOsteopenia of left hipMedical HistoryEarly satietyMedical HistoryBloatingMedical History Lumbosacral spondylosis with radiculopathyMedical HistoryGAD (generalized anxiety disorder)Medical HistoryVitamin D deficiencyMedical HistoryLumbago with sciatica, left side (resolved 07/07/2021)Surgical HistoryLEFT BREAST STEREOTACTIC [id number] YhubdypMTHAVKEASWF5030Hrfsvmko ZfnfxljGBP7444 Surgical RulnvqlLsjcznoqayp0102Jlwizznpfjaihzj HistorySEE SURGICAL HX Dw[place] Other Reason for referral (narrative)* Diagnostic Procedure Only (Routine) - ClosedSpecialtyDiagnoses / ProceduresReferred By Contact Referred To ContactXR IMAGING Diagnoses Scoliosis of thoracolumbar spine, unspecified scoliosis type Procedures XR SCOLIOSIS PA STAND/LAT 2V RADEX ENTIR THRC LMBR CRV SAC SPI W/SKULL 2/3 VW Ancelmo Sandoval PA-C [address] [place] [address] Xr Imaging Referral IDStatusReasonStart DateExpiration DateVisits RequestedVisits [id number] Auto-Generated [facility]erral [facility] HospitalReason [facility] referral (narrative)No reason for referral information availableRiverview Health Institute Work Phone: Reason for visit Narrative* Diagnostic Procedure Only (Routine) - ClosedSpecialtyDiagnoses / ProceduresReferred By ContactReferred To ContactXR IMAGING Diagnoses Scoliosis of thoracolumbar spine, unspecified scoliosis type Procedures XR SCOLIOSIS PA STAND/LAT 2V RADEX ENTIR THRC LMBR CRV SAC SPI W/SKULL 2/3 Ancelmo Wild PA-C [address] [place] [address] Xr Imaging Referral IDStatusReasonStart DateExpiration DateVisits RequestedVisits [id number] Auto-Generated Referral [facility] Summary Purpose Family History Relationship Condition [...] 2024 8:54am GERD (gastroesophageal reflux disease) M [facility] 2024 8:54am Kyphoscoliosis due to degeneration of [...] 2024 8:54am GERD (gastroesophageal reflux disease) M [facility] 2024 8:54am Kyphoscoliosis due to degeneration of [...] 2024 8:54am GERD (gastroesophageal reflux disease) J [facility] 2024 8:54am Hypertension September 16, [...] section and content) DATE CREATED AUTHOR 09/02/2021 [facility] DATE CREATED AUTHOR AUTHOR'S ORGANIZ ATION 03/07/2022 [facility] DATE CREATED AUTHOR AUTHOR'S ORGANIZ ATION 07/13/2022 [facility] DATE CREATED AUTHOR AUTHOR'S ORGANIZ ATION 10/11/2024 [facility] Source Comments (unrecognize d section and content) In the event this informatio n is protected by the Federal Confidentiality of Alcohol and Drug Abuse Patient Records regulations: The Federal rules restrict any use of the information to criminally investigate or prosecute any alcohol or drug abuse patient.[facility] HospitalIn the event this information is protected by the Federal Confidentiality of Alcohol and Drug Abuse Patient Records regulations: The Federal rules restrict any use of the information to criminally investigate or prosecute any alcohol or drug abuse patient.[facility] HospitalIn the event this information is protected by the Federal Confidentiality of Alcohol and Drug Abuse Patient Records regulations: The Federal rules restrict any use of the information to criminally investigate or prosecute any alcohol or drug abuse patient.[facility] Reason for Visit (unrecogniz ed section [...] Team Status: Active Member Role Status Narinder oMta DO Primary Care Provide r, Attending Provider [...] BE BASED ON THE PRIMARY CLINICAL RECORDS. [facility] [employer] provides no warranty or guarantee of the accuracy or completeness of information in this document.
[2025-02-24 07:40] VITALS: BP 212/85; PULSE 89; TEMP 36.3; O2SAT 99
--- OUTSIDE RECORDS SUMMARY | 2025-02-24 07:40 | XMS_ITS | Clinical Summary ---
Author Organization [facility] Address [address] [place] [id number] Care Team Providers Care Bar Captain Name Role Phone Unavailable Primary Care Provider Unavailabl e Allergies Active AllergyReactionsCriticalityNoted DateCommentsAmoxicillinAnaphylaxisHigh 10/15/2021Nitrofurantoin Monohyd/M-XbxkmWdxwwximhuaRide55/19/2022ulfa (Sulfonamide Antibiotics)YikdvvldrmlWzug20/19/2022 Medications MedicationSigDispense QuantityRefillsLast FilledStart DateEnd DateStatus gabapentin [...] drink = 0.6 oz pure alcohol)PHQ-2AnswerDate RecordedPHQ-2 ohzti34104/04/2021rea Deprivation Index AnswerDate RecordedNational Score (1-100), lower number is lower risk70 03/24/2022State Score (1-10), lower number is lower riskNot on file03/24/2022 Data from: https://www.neighborhoodatlas.medicine.[facility].edu/. Last address used for geracb[address]CommentsUnknownSex and Gender InformationValueDate RecordedSex Assigned at BirthNot on fileLegal SexFemale 01/29/2012 9:37 AM ESTGender IdentityNot on fileSexual OrientationNot on file Last Filed Vital Signs Vital SignReadingTime TakenCommentsBlood Gqjuskke163/7602/01/2022 10:22 AM ESTpt states worked up from driving cbikQsfrb9822/06/2022 10:22 AM ESTTemperature-- Respiratory Pvju768104/04/2021 10:22 AM ESTOxygen Ovghhpxtro38%02/01/2022 10:22 AM ESTInhaled Oxygen Concentration--Jzqzyc78.9 kg (110 lb)02/01/2022 10:22 AM EST Egrnvi374 cm (5' 3 )02/01/2022 10:22 AM ESTBody Mass Index19.4902/01/2022 10:22 AM EST Plan of Treatment Health MaintenanceDue DateLast DoneCommentsAnxiety Dusktbrhi25/16/1967Depression Teaxboayn91/16/1967Hepatitis C Iwlpochrk53/16/1967DTaP,Tdap,Td Vaccine (1 - Tdap)11/13/1967Diabetes Vziobldeg30/16/1994Pneumococcal Vaccine: 50+ (1 of 1 - PCV)1998Shingrix Vaccine (1 of 2)1998Bone Density Screening 2013RSV Vaccine (1 - 1-dose 75+ series)4Advance Directive Libuwlemiq36/01/2025Medicare Advantage Annual Wellness Visit02/28/2024ovid-19 Vaccine ( season)/, 05/30/2021, 11/22/2020, Additional history existsInfluenza Vaccine (#1)509/, 12/07/2017, 12/19/2016, Additional history exists Insurance * Guarantor: Courtney White LAccount TypeRelation to PatientDate of BirthPhone Billing AddressPersonal/UldkdxFhkl03/16/1951 [address] [id number]
--- OUTSIDE RECORDS SUMMARY | 2025-02-24 07:40 | XMS_ITS | Patient Health Record ---
Author Organization [facility] Address [address] [place] [address] Care Team Providers Care Spot Machine Operator Name Role Phone HORTENCIA BHARDWAJ DO Primary Care Provider Unavaila Wilfred Bullock Unavailable [phone] ELAINA TUCKER CNP Unavailable Unavailable Allergies Allergen [...] alcohol in the p ast year? No Xdqnuk1VsrcjxqdolsrlcUazservoJenkyvz Control (Standard) Question Answer Notes Tobacco use: Nonsmoker Problems Problem Type SNOMED Code ICD Code Onset Dates Problem Status W/U Status Risk Notes Problem Idiopathic scoliosis of lumbar spine (disorder) (063125393) Other idiopathic scoliosis, lumbar region (M41.26) ActiveconfirmedProblemScoliosis (929658862)Scoliosis, unspecified scoliosis type, unspecified spinal region (M41.9)ActiveconfirmedProblemSciatic nerve lesion (770415600)Piriformis syndrome of right side (G57.01)Activeconfirmed Plan Of Treatment Pending Test Test Name Order Date SCC- HIP W/ PELVIS, RIGHT [id number] 11/20/19 24 Insurance Providers Payer Name Payer Address Payer Phone Subscriber Number Group Number Insured Name Patient Relationship to Insured Coverage Start Date Coverage End Date Medicare [employer] [address] [address] [place] [address] [phone] [id number] Chris LUJAN - patient is the insured Medical (General) History Medical History History ICD Code Drug Allergies
[2025-02-24 08:11] VITALS: BP 182/77; BP 194/87; PULSE 86; PULSE 88; O2SAT 98
[2025-02-24] MEDS: LIDOCAINE HCL 2% 400 MG/20 ML MDV INJ (08:13)
[2025-02-24] MEDS: IOHEXOL 240 MG/ML - 10 ML VIAL 24 MG INJ (08:13)
[2025-02-24] MEDS: BUPIVACAINE HCL 0.25% PF 25 MG/10 ML VIAL INJ (08:13)
[2025-02-24] MEDS: 0.9 % SODIUM CHLORIDE 10 ML SYRINGE - SALINE FLUSH INJ (08:13)
[2025-02-24] MEDS: DEXAMETHASONE SOD PHOS 10 MG/ML VIAL INJ (08:13)
--- NOTE | 2025-02-24 08:15 | P.ON_ITS ---
Date of procedure: 02/24/25 Pre-op diagnosis: Pain due to lumbar stenosis with neurogenic claudication Post-op diagnosis: same as pre-op Procedure: Procedure: Right L3-4, L4-5 transforaminal epidural steroid injection Medications: Bupivacaine 0.25% 2cc, lidocaine 2% 1cc, dexamethasone 10mg The patient was seen and examined in the preoperative holding area.? Informed consent was obtained and placed on the chart.? Patient was brought to the medical procedure unit and placed in the prone position where a timeout was completed verifying the correct patient, procedure site, position, and planned special equipment using sterile aseptic technique.? Under direct fluoroscopic visualization a 25-gauge Quincke tipped spinal needle was advanced to the designated neural foramen where contrast dye was injected to show adequate spread.? The needle was inserted at level right L3-4. There was no evidence of vascular or adverse uptake.? Epidural spread was appreciated.? The above- mentioned injectate was then placed in a 1.5 mL aliquot preceded by negative aspiration.? The needle was removed. The needle was inserted and the procedure repeated at level right L4-5.? The surgery site was covered.? Patient was taken to the postprocedural recovery area and monitored for an appropriate length of time before found suitable for discharge in the accompaniment of a responsible adult. Anesthesia: Local Surgeon: Clifton Matthews Pathology: none sent Condition: stable Disposition: no change
== END 2025-02-24 08:43 | disposition home or self-care (01) ==
PROVIDERS: PCP Internal Medicine; Visit Provider Anesthesiology
DX: M48.062 Spinal stenosis, lumbar region with neurogenic claudication (principal); G89.29 Other chronic pain
CPT/HCPCS: 64483; 64484; J0665; J1100; Q9966